=== PATIENT | male | born 1960 | race African-American/Black ===

== ENCOUNTER 2020-08-13 11:53 | Emergency (ER) | payer OTHER, SELFPAY ==
--- NOTE | 2020-08-13 12:20 | ED.SOB ---
HPI - SOB/Dyspnea General Chief Complaint: Dyspnea Stated Complaint: sob Time Seen by Provider: 08/13/20 12:19 Source: patient Mode of arrival: ambulatory Limitations: no limitations History of Present Illness HPI Narrative: 59 y/o male with history of left lung carcinoid nodule s/p ROSA lobectomy and chemoradiation, BPH, gout, HLD, HTN, DM2 presenting with acute on chronic dyspnea on exertion for the last few days. He reports he is chronically SOB but this is slightly worse than usual. He is spitting up blood tinged phlegm and yellow phlegm as well. No fevers, no chest pain. He has been using his PRN inhalers at home with some improvement. He works at a [employer] and has frequent COVID tests - last was 2 weeks ago. Related Data Previous Rx's Medication Instructions Recorded albuterol sulfate 1 inh INHALATION QID PRN #6.7 g 08/13/20 benzocaine-menthol [Cepacol Sore 1 benny PO Q4-5H PRN #16 ea 08/13/20 Throat (ramon-men)] benzonatate [Tessalon Perles] 100 mg PO TID PRN #20 cap 08/13/20 Allergies Allergy/AdvReac Type Severity Reaction Status Date / Time No Known Allergies Allergy Mild NONE Unverified 07/11/20 15:30 Review of Systems Review of Systems: Constitutional: No Fever, No Chills ENT/Mouth: No sore throat, No Rhinorrhea, No Swallowing Difficulty Eyes: No Eye Pain, No Swelling, No Redness Cardiovascular: No Chest Pain, + SOB, No Orthopnea, No Edema Respiratory: + Cough, + Sputum, No Wheezing, + dyspnea Gastrointestinal: No Nausea, No Vomiting, No Diarrhea, No abdominal Pain, No Hematochezia, No Melena Genitourinary: No Dysuria, No Urinary Frequency, No Hematuria Musculoskeletal: No joint pain, No Myalgias Skin: No Skin Lesions, No rash Neuro: No Weakness, No Numbness, No Dizziness, No Headache Psych: No Anxiety/Panic, No Depression Heme/Lymph: No Bruising, No Lymphadenopathy Endocrine: No Polyuria, No Polydipsia PMFSH Past Medical History Attestation statement: The following information was validated with the patient. Medical History Diabetes High cholesterol HTN (hypertension) Prostate enlargement Surgical History (Updated 08/13/20 @ 12:35 by Winnie Hall) History of lobectomy of lung Social History Social History Smoking Status: Never smoker Use of substances other than those prescribed or required for medical reasons: No Advance Directives: No Advance Directives Information Provided: Yes Physical Exam Vital Signs: Vital Signs: Vital Signs Temp Pulse Resp BP Pulse Ox 08/13/20 14:39 91 18 148/101 H 98 08/13/20 12:27 98.0 F 91 16 148/111 H 99 Body Mass Index 27.7 Appearance: Alert. Oriented X3. No acute distress. Eyes: Pupils equal, round and reactive to light. ENT: Pharynx normal. Neck: Normal inspection. Neck supple. CVS: Normal heart rate and rhythm. Pulses normal. Respiratory: No respiratory distress. Breath sounds diminished at bilateral bases. Abdomen: Soft and nontender. +BS x4 Skin: Skin warm and dry. Normal skin color. Normal skin turgor. No rashes. Extremities: No lower extremity edema. Neuro: Oriented X 3. No motor deficit. No sensory deficit. Course Course Course Narrative: 59 y/o with multiple comorbidities presenting with acute on chronic G[place], hemopytsis and yellow phlegm. No hypoxia and no distress on arrival. Concern for possible PE given history and hemopytsis, will check DDIMER. CXR, labs, EKG pending and Duoneb ordered for now. Dispo pending results. Reevaluation(s) Reevaluation #1: DDIMER elevated so CTA was done to r/o PE which did not show any pulmonary emboli. Showed stable loculated left lung pleural effusion from prior imaging and small pleural effusion on the right as well, stable. BNP is elevated 775. Will give dose of IV lasix now. Will get ambulatory O2 sat. Reevaluation #2: No hypoxia or dyspnea with ambulatory pulse oximetry performed by myself. He is stable for d/c with plan to f/u with PCP. May benefit from increase in baseline lasix dosing. Discussed low salt diet with patient and need to follow up with PCP this week. He agrees with plan. MDM - SOB/Dyspnea Differential Diagnosis Differential diagnosis: Likely acute exacerbation of chronic obstructive airways disease, congestive heart failure, pneumonia, asthma with exacerbation, pulmonary embolism, pleural effusion and anemia Medical Records Attestation: I reviewed the patient's medical records. Lab Data Attestation: I reviewed the patient's lab results. Result diagrams: 08/13/20 12:52 08/13/20 12:52 Labs: Lab Results 08/13/20 08/13/20 08/13/20 Range/Units 12:52 12:52 12:52 WBC 9.9 (4.8-10.8) X10*3/uL RBC 4.91 (4.60-5.80) X10*6/uL Hgb 14.8 (14.0-18.0) g/dl Hct 45.6 (42-52) % MCV 92.9 (80-98) fL MCH 30.1 (27.0-33.0) pg MCHC 32.5 (31.0-36.0) g/dl RDW 15.2 (11.0-16.0) % Plt Count 177 (160-400) X10*3/uL MPV 11.1 (9.4-12.4) fL Immature Gran % (Auto) 0.4 (0.0-0.4) % Neut % (Auto) 67.0 (45-73) % Lymph % (Auto) 22.2 (20-40) % Person % (Auto) 9.1 (2-11) % Eos % (Auto) 1.0 (0-4) % Baso % (Auto) 0.3 (0-2) % Lymph # (Auto) 2.2 (1.2-4.9) X10*3/uL Person # (Auto) 0.9 (0.1-1.2) X10*3/uL Eos # (Auto) 0.1 (0.0-0.4) X10*3/uL Baso # (Auto) 0.0 (0.0-0.2) X10*3/uL Abs Immat Gran (auto) 0.04 H (0.00-0.03) X10*3/uL Absolute Neuts (auto) 6.6 (2.0-8.3) X10*3/uL Absolute Nucleated RBC 0.000 (0.0-0.012) X10*3/uL Nucleated RBC % (auto) 0.0 (0.0-0.2) /100WBC D-Dimer 409 NG/ML Sodium 142 (135-145) mmol/L Potassium 4.3 (3.3-5.1) mmol/l Chloride 108 (96-108) mmol/L Carbon Dioxide 24 (22-29) mmol/L Anion Gap 14 (12-20) BUN 14 (9-16) mg/dL Creatinine 0.87 (0.5-1.4) mg/dL Estim Creat Clear Calc 90.5 Estimated GFR > 60 Random Glucose 147 H (60-115) mg/dL Calcium 9.0 (8.4-10.2) mg/dL B-Natriuretic Peptide (<100) pg/mL Urine Color Urine Appearance Urine pH (5.0-8.0) Ur Specific [place] (1.005-1.025) Urine Protein (NEG-TRACE) MG/DL Urine Glucose (UA) (NEG) MG/DL Urine Ketones (NEG) MG/DL Urine Blood (NEG) Urine Nitrite (NEG) Ur Leukocyte Esterase (NEG) Urine RBC (0) /HPF Urine WBC (0-4) /HPF Ur Squamous Epith Cells /LPF Urine Bacteria /LPF Urine Mucus /LPF 08/13/20 08/13/20 Range/Units 12:52 14:05 WBC (4.8-10.8) X10*3/uL RBC (4.60-5.80) X10*6/uL Hgb (14.0-18.0) g/dl Hct (42-52) % MCV (80-98) fL MCH (27.0-33.0) pg MCHC (31.0-36.0) g/dl RDW (11.0-16.0) % Plt Count (160-400) X10*3/uL MPV (9.4-12.4) fL Immature Gran % (Auto) (0.0-0.4) % Neut % (Auto) (45-73) % Lymph % (Auto) (20-40) % Person % (Auto) (2-11) % Eos % (Auto) (0-4) % Baso % (Auto) (0-2) % Lymph # (Auto) (1.2-4.9) X10*3/uL Person # (Auto) (0.1-1.2) X10*3/uL Eos # (Auto) (0.0-0.4) X10*3/uL Baso # (Auto) (0.0-0.2) X10*3/uL Abs Immat Gran (auto) (0.00-0.03) X10*3/uL Absolute Neuts (auto) (2.0-8.3) X10*3/uL Absolute Nucleated RBC (0.0-0.012) X10*3/uL Nucleated RBC % (auto) (0.0-0.2) /100WBC D-Dimer NG/ML Sodium (135-145) mmol/L Potassium (3.3-5.1) mmol/l Chloride (96-108) mmol/L Carbon Dioxide (22-29) mmol/L Anion Gap (12-20) BUN (9-16) mg/dL Creatinine (0.5-1.4) mg/dL Estim Creat Clear Calc Estimated GFR Random Glucose (60-115) mg/dL Calcium (8.4-10.2) mg/dL B-Natriuretic Peptide 775 H (<100) pg/mL Urine Color YELLOW Urine Appearance CLEAR Urine pH 6.0 (5.0-8.0) Ur Specific [place] 1.020 (1.005-1.025) Urine Protein NEG (NEG-TRACE) MG/DL Urine Glucose (UA) NEG (NEG) MG/DL Urine Ketones NEG (NEG) MG/DL Urine Blood TRACE (NEG) Urine Nitrite NEG (NEG) Ur Leukocyte Esterase NEG (NEG) Urine RBC 1-4 (0) /HPF Urine WBC 0-2 (0-4) /HPF Ur Squamous Epith Cells TRACE /LPF Urine Bacteria NONE /LPF Urine Mucus TRACE /LPF ECG Data Attestation: I personally reviewed and interpreted this ECG as follows: ECG interpretation date: 08/13/20 ECG interpretation time: 13:12 Interpretation: normal sinus rhythm, HR 91 bpm, occasional PVC, prolonged QTc 474 Discharge Plan Discharge Clinical Impression: Congestive heart failure Qualifiers: Heart failure type: unspecified Heart failure chronicity: acute on chronic Qualified Code(s): I50.9 - Heart failure, unspecified Patient Disposition: Home, Self-Care Instructions: Heart Failure (ED) Additional Instructions: You were tested for COVID-19 today. We will call you with the results in 2-4 days. If your breathing gets worse, come back to the ER for further evaluation. Follow up with your Primary Care Doctor this week - you may benefit from higher dose of your water pill. Stick to a low salt, heart healthy diet. Prescriptions: New benzonatate [Tessalon Perlclarissa] 100 mg capsule 100 mg PO TID PRN (Reason: cough) Qty: 20 RF: 0 albuterol sulfate 90 mcg/actuation HFA aerosol inhaler 1 inh inhalation QID PRN (Reason: shortness of breath or wheezing) Qty: 6.7 RF: 0 Cepacol Sore Throat (ramon-men) 15-2.3 mg lozenge 1 benny PO Q4-5H PRN (Reason: sore throat) Qty: 16 RF: 0 Stand Alone Forms: Work/School Release
[2020-08-13 12:27] VITALS: BP 148/111; PULSE 91; RESP 16; TEMP 36.7; O2SAT 99; BMI 27.7
--- NOTE | 2020-08-13 12:30 | ECG_ITS ---
Test Reason : SOB Blood Pressure : / mmHG Vent. Rate : 091 BPM Atrial Rate : 091 BPM P-R Int : 130 ms QRS Dur : 090 ms QT Int : 386 ms P-R-T Axes : 057 003 095 degrees QTc Int : 474 ms Sinus rhythm with occasional Premature ventricular complexes Possible Left atrial enlargement Nonspecific ST and T wave abnormality Lateral leads Abnormal ECG When compared with ECG of 01-JUN-2020 10:42, No significant change was found Referred By: Carissa Barreto Electronically Signed By:WILLIS FALLON MD
--- NOTE | 2020-08-13 12:31 | XR_ITS ---
EXAMINATION: XR CHEST CLINICAL INFORMATION: Shortness of breath COMPARISON: Chest radiographs 06/17/2020, 80 06/13/2020, 01/16/2020 TECHNIQUE: Portable upright AP view of the chest was obtained. FINDINGS: The lungs are somewhat expanded with patchy opacity left upper lobe similar to previous study 06/17/2020 likely postsurgical changes as described before. There is minimal loss of left lung volume. The right lung is expanded and clear. The heart size is borderline enlarged. Pulmonary vascularity is normal. There is moderate spondylosis dorsal spine. No lytic process. IMPRESSION: Patchy opacity left upper lobe likely postsurgical changes with mild left lung volume loss, stable. No new findings. Right lung is clear. Borderline cardiomegaly.
[2020-08-13 13:01] LABS: MANUAL DIFF FLAG NO
[2020-08-13] MEDS: Albuterol/Iprat 2.5/0.5MG 3 ML AMPUL.NEB INHALE (13:08)
[2020-08-13 13:09] LABS: Basophils Percent Auto 0.3 % (0-2); Eosinophils Absolute Auto 0.1 X10*3/uL (0.0-0.4); Hematocrit 45.6 % (42-52); Hemoglobin 14.8 g/dl (14.0-18.0); Imm Gran Abs Auto 0.04 X10*3/uL (0.00-0.03); Imm Gran Pct Auto 0.4 % (0.0-0.4); Lymphocytes Absolute Auto 2.2 X10*3/uL (1.2-4.9); Lymphocytes Percent Auto 22.2 % (20-40); Mean Corpuscular HGB Conc 32.5 g/dl (31.0-36.0); Mean Corpuscular Hemoglobin 30.1 pg (27.0-33.0); Mean Corpuscular Volume 92.9 fL (80-98); Mean Platelet Volume 11.1 fL (9.4-12.4); Monocytes Absolute Auto 0.9 X10*3/uL (0.1-1.2); Monocytes Percent Auto 9.1 % (2-11); Neutrophils Absolute Auto 6.6 X10*3/uL (2.0-8.3); Platelet Count 177 X10*3/uL (160-400); Red Blood Count 4.91 X10*6/uL (4.60-5.80); Red Cell Distribution Width 15.2 % (11.0-16.0); White Blood Count 9.9 X10*3/uL (4.8-10.8)
--- NOTE | 2020-08-13 13:10 | PC.NURSE ---
PT ALERT AND ORIENTED, SKIN APPROPRIATE FOR ETHNICITY, PT REPORTS FEELING SOB, COUGH FOR A COUPLE OF DAYS AND STATES WHITE SPUTUM WITH OCCASIONAL BLOOD/RED TING. LS CLEAR BUT HX OF LEFT SIDED LOBE ECTOMY.
[2020-08-13 13:17] LABS: D Dimer 409 NG/ML
[2020-08-13 13:27] LABS: Anion Gap 14 (12-20); Blood Urea Nitrogen 14 mg/dL (9-16); Carbon Dioxide 24 mmol/L (22-29); Chloride 108 mmol/L (96-108); Creatinine Clr Calc Pharmacy 90.5; Estimated Glomerular Filt Rate > 60; Glucose Random 147 mg/dL (60-115); Potassium 4.3 mmol/l (3.3-5.1); Sodium 142 mmol/L (135-145)
--- NOTE | 2020-08-13 13:29 | CT_ITS ---
EXAMINATION: CT ANGIOGRAM OF THE CHEST WITH AND WITHOUT CONTRAST (CT PULMONARY ANGIOGRAM FOR PE) CLINICAL INFORMATION: Reason for Exam SOB, hemoptysis, elevated DDIMER COMPARISON: Previous chest CTA most recent May 2020 and chest x-ray most recent from earlier the same day TECHNIQUE: Prior to contrast administration, noncontrast localization images were obtained. Subsequently, multidetector volumetric imaging was performed from the thoracic inlet to below the diaphragms following the administration of 65 mL Omnipaque 350 intravenous contrast. No contrast reaction reported Sagittal, coronal, and MIP oblique sagittal reformatted images were obtained on the CT workstation, uploaded to PACS, and reviewed. This CT examination was performed using dose optimization techniques as appropriate, variously including the following: *Automated exposure control *Adjustment of mA and/or kV according to patient size (this includes techniques or standardized protocols for targeted exams where dose is matched to indication/reason for exam; i.e. extremities or head) *Use of iterative reconstruction technique Total exam dose-length product 334 mGy-cm FINDINGS: QUALITY OF STUDY/CONTRAST BOLUS: Satisfactory. PULMONARY ARTERIES: No central or segmental pulmonary emboli. THORACIC AORTA: No aneurysm or dissection. LUNG: There are stable postsurgical changes to the left lung following partial left upper lobe lobectomy. There is a small 3 mm peripheral or subpleural left lower lobe pulmonary nodule axial image 35 series 7 that is stable. The lungs are otherwise clear. PLEURA: There is a loculated left pleural effusion at the left lung apex that is stable. There are small bilateral pleural effusions seen at the lung bases adjacent to the lower lobes, right greater than left. These findings are similar to May 2020 exam. MEDIASTINUM: The heart is enlarged. There is mild coronary artery calcification. No septal bowing is seen. There is a small pericardial effusion. There are small mediastinal and hilar lymph nodes that are stable. No enlarged lymph nodes are seen. CHEST WALL/AXILLA: No chest wall mass or enlarged axillary lymph nodes are seen. OSSEOUS STRUCTURES: There are degenerative changes of the spine. UPPER ABDOMEN: There is increased attenuation in the gallbladder questionable for small gallstones. There is some reflux of contrast into the intrahepatic IVC and hepatic veins suggestive of elevated right heart pressures. IMPRESSION: No evidence of pulmonary embolism. Stable postsurgical changes to the left hemithorax. Stable small bilateral pleural effusions. Enlarged heart and elevated right heart pressures. Small gallstones. VTE: negative
[2020-08-13 13:35] LABS: B Type Natriuretic Peptide 775 pg/mL (<100)
[2020-08-13] MEDS: iohexoL 350 MG/ML 100 ML INFUS..BTL IV (13:53)
[2020-08-13 14:14] LABS: Glucose Urine UA NEG (NEG); Leukocyte Esterase Urine NEG (NEG); Nitrite Urine NEG (NEG); Urine Blood TRACE (NEG); Urine Ketones NEG (NEG); Urine Protein NEG (NEG-TRACE)
[2020-08-13 14:16] LABS: Appearance Urine CLEAR; Color Urine YELLOW
[2020-08-13 14:29] LABS: WBC Urine 0-2 /HPF (0-4)
[2020-08-13 14:30] LABS: Mucus Urine TRACE /LPF; Squamous Epithelial Cell Urine TRACE /LPF
[2020-08-13 14:39] VITALS: BP 148/101; PULSE 91; RESP 18; O2SAT 98
[2020-08-13] MEDS: Furosemide 20 MG/2 ML VIAL IVPUSH (14:42)
== END 2020-08-13 15:20 | disposition home or self-care (01) ==
PROVIDERS: Physician Assistant; Emergency Provider Emergency Medicine; PCP Family Medicine
DX: I11.0 Hypertensive heart disease with heart failure (principal); E11.9 Type 2 diabetes mellitus without complications; Z20.828 Contact with and (suspected) exposure to other viral communicable diseases
CPT/HCPCS: 36415; 71045; 71275; 80048; 81001; 83880; 85025; 85379; 87635; 93005; 96374; 99284; J1940

== ENCOUNTER → 2020-08-15 13:25 | Outpatient (REF) | payer OTHER, SELFPAY ==
--- NOTE | 2020-08-15 13:31 | CA_ITS ---
Transthoracic Echocardiogram Patient (Last, First, Middle): Sonny Curiel, Gender: Male Date of : 1960 Age: 59 Procedure Date: 08/15/2020 Procedure Type: Transthoracic Echocardiogram Location: OP Height: 170.18 cm Weight: 80.29 kg BSA: 1.92 m2 Heart Rate: bpm BP: 120 / 83 mmHg Railroad Accountant: CHANDLER Referring MD: Tomer Carolina MD Symptoms: 142.8 Non ischemic cardiomyopathy Study Quality: Good ECG Rhythm: Sinus Conclusions: - The left ventricular systolic function is severely decreased. The visually estimated ejection fraction is between 20-25%. There is severe global hypokinesis. - Evidence suggests grade II (moderate) diastolic dysfunction. - There is mild mitral valve regurgitation. - There is mild tricuspid valve regurgitation. - Moderate pulmonary hypertension is present. Findings Left Ventricle Mildly increased left ventricular cavity size. There is normal left ventricular wall thickness. The left ventricular systolic function is severely decreased. The visually estimated ejection fraction is between 20 25%. There is severe global hypokinesis. E/E prime ratio is >15, consistent with elevated filling pressures. Evidence suggests grade II (moderate) diastolic dysfunction. Right Ventricle Normal right ventricular cavity size and systolic function. Atria The left atrium is normal in size. The right atrium is normal in size. Aortic Valve There is a normal trileaflet aortic valve. There is no aortic valve stenosis. There is no aortic valve regurgitation. Mitral Valve The mitral valve appears normal. There is mild mitral valve regurgitation. There is no mitral valve stenosis. Pulmonic Valve The pulmonic valve was not well visualized. Tricuspid Valve Normal tricuspid valve structure. There is mild tricuspid valve regurgitation. Moderate pulmonary hypertension is present. Great Vessels The aortic annulus, sinuses of valsalva, and asc aorta are normal in size. Venous The inferior vena cava is normal in size and collapses greater than 50% with inspiration. Pericardium/Pleural There is no evidence of pericardial effusion. Prior Study Comparison Changes noted compared to prior study dated: 01/24/2020. LVEF is worse. Measurements M-Mode Liner Measurements Normals - Women/Men LVIDd: 6.86 3.9-5.3/4.2-5.9 cm LVIDd Index: 3.57 1.9-3.2 cm/m2 LVIDs: 5.54 2.0-3.8 cm M-Mode Volumes LV EDV: 244.00 LV ESV: 150.00 2D Linear Measurements IVSd: 0.83 0.6-0.9/0.6-1.0 cm LVIDd: 5.98 3.9-5.3/4.2-5.9 cm LVIDd Index: 3.11 2.4-3.2/2.2-3.1 cm/m2 LVIDs: 5.71 2.0-3.6 cm LVPWd: 1.20 0.7-1.1 cm LA Diam: 3.90 2.7-3.8/3.0-4.0 cm LAIDs Index: 2.03 1.5-2.3 cm/m2 LV Mass: 312.88 67-162/88-224 g LV Mass Index: 162.96 43-95/49-115 g/m2 LVOT Diam: 2.00 3.0+(-)1.3 cm 2D Systolic Function EF 4C: 25.20 >55% EF 2C: 34.90 >55% EF BiP: 25.30 >55% M-Mode Systolic Function FS: 19.20 27-47/25-43% LVEF: 38.50 >55% Mitral Valve MV Pk E: 0.69 MV PK A: 0.36 MV Decel Time: 256.00 E/A: 1.90 E'Lateral: 6.87 E'Medial: 3.48 E/E' Med: 19.80 E/E' Lat: 10.00 PHT: 75.00 MVA PHT: 2.93 Decel Gilchrist: 2.69 Aortic Valve AoV Pk Michael: 0.91 AoV Pk Grad: 3.00 LVOT LVOT Pk Michael: 0.51 LVOT Mn Michael: 0.29 LVOT VTI: 0.07 LVOT Pk Grad: 1.00 LVOT Mn Grad: 0.00 LVOT Diam: 2.00 LVOT Area: 3.14 Diastolic Function MV Pk E: 0.69 MV Pk A: 0.36 E/A: 1.90 E'Medial: 3.48 E/E' Med: 19.80 E' Laterial: 6.87 E/E' Lat: 10.00 Tricuspid Valve TR Pk Michael: 330.00 TR Pk Grad: 44.00 RA Press: 3.00 RVSP: 47.00 Great Vessels Aorta Ao Asc: 3.10 2.1-3.4 cm Updated in Other Vendor System with Status of Final Tomer Carolina MD electronically signed on 08/18/2020 10:56:57 AM with status of Final
== END ==
LOC: HO.CARD 13:25
PROVIDERS: PCP Family Medicine; Visit Provider Internal Medicine
DX: I42.8 Other cardiomyopathies (principal)
CPT/HCPCS: 93306

== ENCOUNTER → 2020-08-20 09:48 | Outpatient (BNVA) | payer OTHER, SELFPAY | PROVIDERS: PCP Family Medicine; Referring Provider Family Medicine; Visit Provider Hospitalist | DX: Z76.89 Persons encountering health services in other specified circumstances (principal) ==

== ENCOUNTER → 2020-08-26 10:39 | Outpatient (BNVA) | payer OTHER, SELFPAY | PROVIDERS: PCP Family Medicine; Referring Provider Family Medicine; Visit Provider Internal Medicine | DX: I42.8 Other cardiomyopathies (principal); I49.3 Ventricular premature depolarization; I10 Essential (primary) hypertension; E11.8 Type 2 diabetes mellitus with unspecified complications; E78.5 Hyperlipidemia, unspecified; Z79.899 Other long term (current) drug therapy | CPT/HCPCS: 93005 ==

== ENCOUNTER → 2020-09-16 09:33 | Outpatient (REF) | payer OTHER, SELFPAY | LOC: HO.SL 09:33 | PROVIDERS: PCP Family Medicine; Visit Provider Hospitalist | DX: G47.33 Obstructive sleep apnea (adult) (pediatric) (principal) | CPT/HCPCS: 95806 ==

== ENCOUNTER → 2020-11-01 12:43 | Outpatient (REF) | payer OTHER, SELFPAY ==
--- NOTE | 2020-11-01 13:00 | CA_ITS ---
Transthoracic Echocardiogram Patient (Last, First, Middle): Sonny Curiel, Gender: Male Date of : 1960 Age: 59 Procedure Date: 11/01/2020 Procedure Type: Transthoracic Echocardiogram Location: OP Height: 170.18 cm Weight: 85.28 kg BSA: 1.97 m2 Heart Rate: bpm BP: 124 / 70 mmHg Hydrator: SONYA Referring MD: Tomer Carolina MD Symptoms: I42.8 Study Quality: Good Conclusions: - Limited echo - LVEF 25-30 %. Moderate to severely reduced LVEF/ - Right Ventricle - Normal right ventricular cavity size. There is mildly decreased right ventricular systolic function. Findings Left Ventricle Normal left ventricular cavity size. The left ventricular systolic function is moderate to severely decreased. The visually estimated ejection fraction is between 25-30%. Abnormal diastolic function is noted. Spectral Doppler is indicative of an impaired relaxation filling pattern. E/E prime ratio is between 8 and 15 consistent with indeterminate filling pressures. Right Ventricle Normal right ventricular cavity size. There is mildly decreased right ventricular systolic function. Pericardium/Pleural There is no evidence of pericardial effusion. Prior Study Comparison Changes noted compared to prior study dated: 08/15/2020. EF slightly improved to 25 to 30% Measurements 2D Linear Measurements IVSd: 1.03 0.6-0.9/0.6-1.0 cm LVIDd: 5.64 3.9-5.3/4.2-5.9 cm LVIDd Index: 2.86 2.4-3.2/2.2-3.1 cm/m2 LVIDs: 4.90 2.0-3.6 cm LVPWd: 1.00 0.7-1.1 cm LV Mass: 282.68 67-162/88-224 g LV Mass Index: 143.49 43-95/49-115 g/m2 2D Systolic Function EF 4C: 30.30 >55% EF 2C: 43.80 >55% Mitral Valve MV Pk E: 0.37 MV PK A: 0.64 MV Decel Time: 261.00 E/A: 0.60 E'Lateral: 3.81 E'Medial: 3.15 E/E' Med: 11.70 E/E' Lat: 9.60 PHT: 77.00 MVA PHT: 2.86 Decel [place]: 1.40 Diastolic Function MV Pk E: 0.37 MV Pk A: 0.64 E/A: 0.60 E'Medial: 3.15 E/E' Med: 11.70 E' Laterial: 3.81 E/E' Lat: 9.60 Updated in Other Vendor System with Status of Final Flakito Acosta MD electronically signed on 11/04/2020 2:41:04 PM with status of Final
== END ==
LOC: HO.CARD 12:43
PROVIDERS: PCP Family Medicine; Visit Provider Internal Medicine
DX: I42.8 Other cardiomyopathies (principal)
CPT/HCPCS: 93308

== ENCOUNTER → 2020-11-04 08:31 | Outpatient (BNVA) | payer OTHER, SELFPAY | PROVIDERS: PCP Family Medicine; Visit Provider Hospitalist | DX: Z76.89 Persons encountering health services in other specified circumstances (principal) ==

== ENCOUNTER → 2020-11-27 09:37 | Outpatient (BNVA) | payer OTHER, SELFPAY | PROVIDERS: PCP Family Medicine; Visit Provider Internal Medicine ==

== ENCOUNTER → 2020-12-10 08:41 | Outpatient (REF) | payer MEDICAID, SELFPAY ==
--- NOTE | 2020-12-10 09:49 | ECG_ITS ---
Hook-up date: 2020-12-10 09:51:00 Duration: 24:39:00 Test Indications: VENTRIC. SHAN. DEPOLARIZATION Medications: 149459 QRS complexes 4524 Ventricular ectopics which represent 4 % of total QRS comp. * Supraventricular ectopics which represent % of total QRS comp. * Paced QRS complexs which represent % of total QRS comp. VENTRICULAR ECTOPY 4024 Isolated 18 Bigeminal Cycles 225 Couplets 10 Runs 50 Beats in Runs 19 Beats LONGEST at 133 BPM at 21:12:12 2020-12-10 3 Beats FASTEST at 151 BPM at 11:47:13 2020-12-10 SUPRAVENTRICULAR ECTOPY * Isolated * Couplets * Runs * Beats in Runs * Beats LONGEST at * BPM at :: -- * Beats FASTEST at * BPM at :: -- HEART RATES 48 MIN at 06:16:01 2020-12-11 73 AVG 99 MAX at 10:05:50 2020-12-10 LONGEST RR 1.0800 secs at 02:27:24 2020-12-11 S-T LEVELS Channel 1 - 128 mm at 09:51:00 2020-12-10 - 128 mm at 09:51:00 2020-12-10 Channel 2 - 128 mm at 09:51:00 2020-12-10 - 128 mm at 09:51:00 2020-12-10 Channel 3 - 128 mm at 02:91:01 -- - 128 mm at 02:91:01 Underlying rhythm is sinus; Average ventricular rate 73/min; range 48-99/min; Frequent premature ventricular contractions (4% of total, 4524 over 24 Hrs); Mostly isolated beats, some couplets, bigeminy, few runs; longest 19 beats at 133/min, unifocal; No sustained arrhythmias; Patient diary not available for review. Referred By: Imtiaz Brown Overread By: IMTIAZ BROWN
== END ==
LOC: HO.CARD 08:41
PROVIDERS: PCP Family Medicine; Visit Provider Internal Medicine
DX: I49.3 Ventricular premature depolarization (principal)
CPT/HCPCS: 93226

== ENCOUNTER → 2020-12-24 12:38 | Outpatient (BNVA) | payer MEDICAID, SELFPAY | PROVIDERS: PCP Family Medicine; Visit Provider Internal Medicine | DX: I42.8 Other cardiomyopathies (principal); I49.3 Ventricular premature depolarization; I10 Essential (primary) hypertension; Z71.89 Other specified counseling | CPT/HCPCS: 99212 ==

== ENCOUNTER 2020-12-26 09:57 | Outpatient (REF) | payer MEDICAID, SELFPAY ==
[2020-12-26 11:13] LABS: B Type Natriuretic Peptide 54 pg/mL (<100)
[2020-12-26 11:32] LABS: Anion Gap 15 (12-20); Blood Urea Nitrogen 27 mg/dL (9-16); Calcium 9.8 mg/dL (8.4-10.2); Carbon Dioxide 24 mmol/L (22-29); Chloride 103 mmol/L (96-108); Estimated Glomerular Filt Rate > 60; Glucose Random 333 mg/dL (60-115); Potassium 4.6 mmol/L (3.3-5.1); Sodium 137 mmol/L (135-145)
== END 2020-12-26 09:58 | disposition home or self-care (01) ==
LOC: HO.LAB 09:57
PROVIDERS: PCP Family Medicine; Visit Provider Internal Medicine
DX: I42.8 Other cardiomyopathies (principal)
CPT/HCPCS: 36415; 80048; 83880

== ENCOUNTER 2021-01-18 11:31 | Emergency (ER) | payer MEDICAID, SELFPAY ==
--- NOTE | ~2021-01-18 | XR_ITS ---
EXAMINATION: XR CHEST CLINICAL INFORMATION: Chest pain and weakness. COMPARISON: Chest 08/13/2020 TECHNIQUE: 2 views of the chest were obtained. FINDINGS: The lungs are well-expanded with postsurgical changes left upper lobe. It is stable. Rest of lungs are somewhat expanded and clear. The heart size and pulmonary vascularity is normal. There is mild spondylosis mid and lower dorsal spine. No lytic process. XR/XR chest 2V IMPRESSION: Postsurgical changes left upper lobe. No acute process.
[2021-01-18 11:36] VITALS: BP 109/72; PULSE 89; RESP 22; TEMP 36.3; O2SAT 99; BMI 28.5
--- NOTE | 2021-01-18 12:36 | ED_ITS ---
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 He tells me he spoke to his PCP 3 days ago and his metformin dose was increased as well as his glipizide. Denies weight gain. Last weight was 175. Tells me he has been compliant with his medications. He takes 20 mg of Lasix every day and 25 mg of Aldactone. No leg swelling or pain. MD Complaint: generalized weakness Related Data Home Medications Medication Instructions Recorded Confirmed atorvastatin 80 mg tablet 80 mg PO DAILY 08/20/20 12/24/20 furosemide 20 mg tablet 20 mg PO DAILY 08/20/20 12/24/20 metformin 500 mg tablet 500 mg PO DAILY 08/20/20 12/24/20 omega-3 fatty acids 1,000 mg 1,000 mg PO BID 08/20/20 12/24/20 capsule tamsulosin 0.4 mg capsule 0.4 mg PO DAILY 08/20/20 12/24/20 ergocalciferol (vitamin D2) 1,250 1,250 mcg PO QWEEK 11/04/20 12/24/20 mcg (50,000 unit) capsule ipratropium bromide 21 mcg (0.03 spray INTRANASAL 11/04/20 12/24/20 %) nasal spray albuterol sulfate 1 inh INHALATION QID PRN 11/22/20 12/24/20 aspirin 81 mg PO DAILY 11/22/20 12/24/20 hydroxyzine pamoate 25 mg capsule 25 mg PO .prn cap 11/27/20 12/24/20 glipizide 10 mg tablet 10 mg PO DAILY tab 12/24/20 12/24/20 Previous Rx's Medication Instructions Recorded carvedilol 6.25 mg tablet 12.5 mg PO BID #180 tab 08/26/20 spironolactone 25 mg tablet 25 mg PO DAILY #30 tab 11/27/20 sacubitril 24 mg-valsartan 26 mg 1 tab PO BID #60 tab 12/12/20 tablet Allergies Allergy/AdvReac Type Severity Reaction Status Date / Time No Known Allergies Allergy Mild NONE Verified 01/18/21 11:42 Review of Systems Review of Systems: Yes all other systems are reviewed and are negative Constitutional: Constitutional: Reports no additional constitutional complaints, Denies body ache(s), Denies chills, Denies fever(s), Denies headache(s) and Reports weakness Eyes: Eyes: Reports no additional eye complaints and Denies change in vision ENT: Reports system reviewed and no additional complaints, except as document ed, Reports dizziness, Denies headache(s), Denies nasal congestion, Denies nasal discharge and Reports neck pain Cardiovascular: Cardiovascular: Reports no additional cardiovascular complaints, Reports chest pain, Denies leg edema and Reports dyspnea Respiratory: Respiratory: Reports no additional respiratory complaints, Denies cough and Reports dyspnea Gastrointestinal: Gastrointestinal: Reports no additional gastrointestinal complaints, Denies abdominal pain, Denies diarrhea, Denies nausea and Denies vomiting Genitourinary: Genitourinary: Denies urinary incontinence Musculoskeletal: Musculoskeletal: Reports no additional musculoskeletal complaints, Denies back pain, Denies arthralgias, Denies joint swelling, Reports neck pain, Denies numbness and Denies tingling Integumentary/Breasts: Skin/Breast: Reports system reviewed and no additional complaints, except as docu and Denies rash Neurologic: Reports system reviewed and no additional complaints, except as do cumented, Denies Abnormal speech present, Reports dizziness, Denies headache(s), Denies numbness, Denies tingling and Reports weakness PMFSH Past Medical History Attestation statement: The following information was validated with the patient. Source: old records reviewed and nursing notes reviewed Medical History Carcinoid tumor Cardiomyopathy COPD (chronic obstructive pulmonary disease) Diabetes Essential hypertension High cholesterol HTN (hypertension) NICM (nonischemic cardiomyopathy) MARVA (obstructive sleep apnea) Other and unspecified hyperlipidemia Prostate enlargement PVC (premature ventricular contraction) Type 2 diabetes mellitus with unspecified complications Surgical History History of lobectomy of lung Family History Family History Son No problems noted. Social History Social History Household Members: Spouse Smoking Status: Never smoker Second Hand Smoke Exposure: Yes (10 + yrs) Use of substances other than those prescribed or required for medical reasons: No Advance Directives: No Advance Directives Information Provided: Yes Physical Exam Vital Signs: Vital Signs: Last Vital Signs Temp 98.0 F 01/18/21 14:54 Pulse 78 01/18/21 16:24 Resp 16 01/18/21 16:24 BP 115/74 01/18/21 16:24 Pulse Ox 98 01/18/21 16:24 Body Mass Index 28.5 Const: General: cooperative, healthy appearing, comfortable and no acute distress Orientation/consciousness: patient oriented x3 Limitations: no limitations HENMT: Head: Yes normal to inspection Ears: hearing grossly normal bilaterally General nose exam: Normal external nose present Face and sinus: Yes normal facial exam Mouth: Normal oral and palatal mucosa present Throat: Yes posterior oropharynx normal Eyes: General: appearance normal, both eyes and all related structures Pupils: Equal, round and reactive pupils present Neck: Neck: Yes normal visual inspection Chest: Chest palpation & inspection: normal inspection of the chest Resp: Effort & Inspection: normal respiratory effort Auscultation: clear to auscultation bilaterally Cardio: Rate: regular rate Rhythm: regular rhythm Peripheral pulses: Peripheral pulses 2+ throughout GI: Inspection: Yes normal to inspection Palpation (GI): Soft to palpation and nontender Auscultation: normal bowel sounds Back/Spine/Pelvis: Thoracic/Lumbar Spine: thoracic and lumbar spine normal to inspection Skin: General skin exam: no rashes or lesions noted Neuro: General: patient oriented x3, no focal motor deficits and normal sensation to monofilament Cranial nerves: Yes Equal, round and reactive pupils present Cognition (Neuro): normal cognition Speech: No Abnormal speech present Gait exam (Neuro): Normal gait present Motor exam (neuro): 5/5 motor strength present throughout Extrem: General: Yes normal to inspection, Yes no pedal edema and Yes no calf tenderness Course Course Course Narrative: 60-year-old male here with multiple complaints of intermittent chest tightness, dyspnea on exertion, productive cough, dizziness with position changes, generalized weakness, neck discomfort x3 days. On exam he is well appearing. Hemodynamically stable. Clear lung sounds. No evidence of fluid overload. Will check chest x-ray, EKG, labs, orthostatic vital signs. 1515-orthostatics mildly elevated. Patient can orally hydrate. Chest x-ray unremarkable. EKG shows no ischemic changes. Labs show mildly elevated troponin, will plan for repeat 3 hour troponin. 1900-repeat troponin no delta. Patient tells me he feels like his symptoms have started after his diabetes medications and doses were increased 3 days ago. He tells me his symptoms are worse in the morning after taking his morning dose of the medications. His symptoms seemed to improve by the end of the day. We discussed following up with his primary care doctor./ may need adjustment of his medications. Reviewed worrisome signs and symptoms when to return to the emergency department. Comfortable discharge home. MDM - Weakness MDM Narrative Medical decision making narrative: Orthostatic hypotension, hypoglycemia, anemia, CHF exacerbation, pneumonia, , PE, ACS May be transient hypoglycemia after taking morning medications and not now. Less likely anemia with normal labs. Less likely CHF exacerbation with no clinical signs or symptoms of CHF and a negative BNP. Less likely pneumonia with negative chest x-ray and no cough or fever. Less likely PE with no hypoxia, tachycardia, clinical signs and symptoms of a DVT. Less likely ACS with 2 troponins with no change, EKG with, no ischemic changes and atypical chest pain Medical Records Attestation: I reviewed the patient's medical records. Lab Data Attestation: I reviewed the patient's lab results. Result diagrams: 01/18/21 13:19 01/18/21 13:19 Labs: Lab Results 01/18/21 01/18/21 01/18/21 Range/Units 13:19 13:19 13:19 WBC 9.0 (4.8-10.8) X10*3/uL RBC 5.05 (4.60-5.80) X10*6/uL Hgb 15.5 (14.0-18.0) g/dl Hct 47.6 (42-52) % MCV 94.3 (80-98) fL MCH 30.7 (27.0-33.0) pg MCHC 32.6 (31.0-36.0) g/dl RDW 13.9 (11.0-16.0) % Plt Count 175 (160-400) X10*3/uL MPV 10.0 (9.4-12.4) fL Immature Gran % (Auto) 0.6 H (0.0-0.4) % Neut % (Auto) 62.4 (45-73) % Lymph % (Auto) 25.5 (20-40) % [place] % (Auto) 9.8 (2-11) % Eos % (Auto) 1.3 (0-4) % Baso % (Auto) 0.4 (0-2) % Lymph # (Auto) 2.3 (1.2-4.9) X10*3/uL [place] # (Auto) 0.9 (0.1-1.2) X10*3/uL Eos # (Auto) 0.1 (0.0-0.4) X10*3/uL Baso # (Auto) 0.0 (0.0-0.2) X10*3/uL Abs Immat Gran (auto) 0.05 H (0.00-0.03) X10*3/uL Absolute Neuts (auto) 5.6 (2.0-8.3) X10*3/uL Absolute Nucleated RBC 0.000 (0.0-0.012) X10*3/uL Nucleated RBC % (auto) 0.0 (0.0-0.2) /100WBC PT 14.4 H (10.8-13.0) SEC INR 1.2 H (0.9-1.1) Sodium 138 (135-145) mmol/L Potassium 4.0 (3.3-5.1) mmol/L Chloride 104 (96-108) mmol/L Carbon Dioxide 25 (22-29) mmol/L Anion Gap 13 (12-20) BUN 20 H (9-16) mg/dL Creatinine 1.38 (0.5-1.4) mg/dL Estim Creat Clear Calc 57.0 Estimated GFR 52 Random Glucose 179 H D (60-115) mg/dL Calcium 9.2 D (8.4-10.2) mg/dL Magnesium 1.6 (1.6-2.6) mg/dL Total Bilirubin 1.0 (0.0-1.0) mg/dL Direct Bilirubin 0.4 (0.0-0.5) mg/dL AST 22 (5-37) U/L ALT 20 (0-40) U/L Alkaline Phosphatase 63 (39-117) U/L Troponin I High Sens (<3.5-35.0) ng/L B-Natriuretic Peptide (<100) pg/mL Total Protein 7.0 (6.5-8.0) g/dL Albumin 4.1 (3.5-5.0) g/dL 01/18/21 01/18/21 01/18/21 Range/Units 13:20 13:20 16:53 WBC (4.8-10.8) X10*3/uL RBC (4.60-5.80) X10*6/uL Hgb (14.0-18.0) g/dl Hct (42-52) % MCV (80-98) fL MCH (27.0-33.0) pg MCHC (31.0-36.0) g/dl RDW (11.0-16.0) % Plt Count (160-400) X10*3/uL MPV (9.4-12.4) fL Immature Gran % (Auto) (0.0-0.4) % Neut % (Auto) (45-73) % Lymph % (Auto) (20-40) % [place] % (Auto) (2-11) % Eos % (Auto) (0-4) % Baso % (Auto) (0-2) % Lymph # (Auto) (1.2-4.9) X10*3/uL [place] # (Auto) (0.1-1.2) X10*3/uL Eos # (Auto) (0.0-0.4) X10*3/uL Baso # (Auto) (0.0-0.2) X10*3/uL Abs Immat Gran (auto) (0.00-0.03) X10*3/uL Absolute Neuts (auto) (2.0-8.3) X10*3/uL Absolute Nucleated RBC (0.0-0.012) X10*3/uL Nucleated RBC % (auto) (0.0-0.2) /100WBC PT (10.8-13.0) SEC INR (0.9-1.1) Sodium (135-145) mmol/L Potassium (3.3-5.1) mmol/L Chloride (96-108) mmol/L Carbon Dioxide (22-29) mmol/L Anion Gap (12-20) BUN (9-16) mg/dL Creatinine (0.5-1.4) mg/dL Estim Creat Clear Calc Estimated GFR Random Glucose (60-115) mg/dL Calcium (8.4-10.2) mg/dL Magnesium (1.6-2.6) mg/dL Total Bilirubin (0.0-1.0) mg/dL Direct Bilirubin (0.0-0.5) mg/dL AST (5-37) U/L ALT (0-40) U/L Alkaline Phosphatase (39-117) U/L Troponin I High Sens 12.6 12.9 (<3.5-35.0) ng/L B-Natriuretic Peptide 21 (<100) pg/mL Total Protein (6.5-8.0) g/dL Albumin (3.5-5.0) g/dL Imaging Data Chest x-ray: Attestation: I personally reviewed and interpreted this imaging study as follows: Radiologist's impression: EXAMINATION: XR CHEST CLINICAL INFORMATION: Chest pain and weakness. COMPARISON: Chest 08/13/2020 TECHNIQUE: 2 views of the chest were obtained. FINDINGS: The lungs are well-expanded with postsurgical changes left upper lobe. It is stable. Rest of lungs are somewhat expanded and clear. The heart size and pulmonary vascularity is normal. There is mild spondylosis mid and lower dorsal spine. No lytic process. XR/XR chest 2V IMPRESSION: Postsurgical changes left upper lobe. No acute process. ECG Data Attestation: I personally reviewed and interpreted this ECG as follows: ECG interpretation date: 01/18/21 ECG interpretation time: 12:58 Interpretation: Sinus rhythm with occasional PVCs, LVH, normal P rate of 73, normal CA, normal QRS, normal QT Discharge Plan Discharge Clinical Impression: Atypical chest pain, Dizziness Patient Disposition: Home, Self-Care Instructions: Chest Pain (ED), Dizziness (ED) Additional Instructions: Talk to your doctor about your morning medications is as these may be too strong for you. It may be causing your blood pressure or blood sugar the lower. Do not change her medications before talking to her. Change positions slowly. Increase fluids this weekend at home Prescriptions: No Action Entresto 24-26 mg tablet 1 tab PO BID Qty: 60 RF: 5 albuterol sulfate 90 mcg/actuation HFA aerosol inhaler 1 inh inhalation QID PRN (Reason: Shortness Of Breath Or Wheezing) RF: 0 aspirin 81 mg Tablet 81 mg PO DAILY RF: 0 omega-3 fatty acids 1,000 mg capsule 1,000 mg PO BID RF: 0 furosemide 20 mg tablet 20 mg PO DAILY RF: 0 tamsulosin 0.4 mg capsule 0.4 mg PO DAILY RF: 0 atorvastatin [Lipitor] 80 mg tablet 80 mg PO DAILY RF: 0 metformin 500 mg tablet 500 mg PO DAILY RF: 0 glipizide 10 mg tablet 10 mg PO DAILY RF: 0 carvedilol 6.25 mg tablet 12.5 mg PO BID Qty: 180 RF: 4 ipratropium bromide 0.03 % spray,non-aerosol intranasal RF: 0 ergocalciferol (vitamin D2) 1,250 mcg (50,000 unit) capsule 1,250 mcg PO QWEEK RF: 0 hydroxyzine pamoate 25 mg capsule 25 mg PO .prn RF: 0 spironolactone 25 mg tablet 25 mg PO DAILY Qty: 30 RF: 5 Referrals: Farrah Jackson DO [Primary Care Provider] - 2 days Interventions: ED Discharge Assessment Last Done: 01/18/21 18:01 Discharge Date/Time: 01/18/21 18:01
--- NOTE | 2021-01-18 12:41 | ECG_ITS ---
Test Reason : DIFF BREATHING Blood Pressure : / mmHG Vent. Rate : 073 BPM Atrial Rate : 073 BPM P-R Int : 136 ms QRS Dur : 090 ms QT Int : 400 ms P-R-T Axes : 060 -11 137 degrees QTc Int : 440 ms Sinus rhythm with occasional Premature ventricular complexes Left ventricular hypertrophy with repolarization abnormality Abnormal ECG When compared with ECG of 13-AUG-2020 13:02, No significant change was found Referred By: Verito Miller Electronically Signed By:IMTIAZ BROWN
[2021-01-18 13:03] VITALS: BP 111/83; PULSE 65
[2021-01-18 13:10] VITALS: BP 121/81; BP 128/88; PULSE 79; PULSE 82
[2021-01-18 13:23] VITALS: BP 121/81; PULSE 79; RESP 16
[2021-01-18 13:24] LABS: MANUAL DIFF FLAG NO
[2021-01-18 13:25] LABS: Basophils Percent Auto 0.4 % (0-2); Eosinophils Absolute Auto 0.1 X10*3/uL (0.0-0.4); Eosinophils Percent Auto 1.3 % (0-4); Hematocrit 47.6 % (42-52); Hemoglobin 15.5 g/dl (14.0-18.0); Imm Gran Abs Auto 0.05 X10*3/uL (0.00-0.03); Imm Gran Pct Auto 0.6 % (0.0-0.4); Lymphocytes Absolute Auto 2.3 X10*3/uL (1.2-4.9); Lymphocytes Percent Auto 25.5 % (20-40); Mean Corpuscular HGB Conc 32.6 g/dl (31.0-36.0); Mean Corpuscular Hemoglobin 30.7 pg (27.0-33.0); Mean Corpuscular Volume 94.3 fL (80-98); Monocytes Absolute Auto 0.9 X10*3/uL (0.1-1.2); Monocytes Percent Auto 9.8 % (2-11); Neutrophils Absolute Auto 5.6 X10*3/uL (2.0-8.3); Neutrophils Percent Auto 62.4 % (45-73); Platelet Count 175 X10*3/uL (160-400); Red Blood Count 5.05 X10*6/uL (4.60-5.80); Red Cell Distribution Width 13.9 % (11.0-16.0)
[2021-01-18 13:36] LABS: INTERNATIONAL NORM RATIO 1.2 (0.9-1.1); Prothrombin Time 14.4 SEC (10.8-13.0)
[2021-01-18 13:47] LABS: Alanine Aminotransferase 20 U/L (0-40); Albumin Level 4.1 g/dL (3.5-5.0); Alkaline Phosphatase 63 U/L (39-117); Anion Gap 13 (12-20); Aspartate Amino Transferase 22 U/L (5-37); Bilirubin Direct 0.4 mg/dL (0.0-0.5); Blood Urea Nitrogen 20 mg/dL (9-16); Calcium 9.2 mg/dL (8.4-10.2); Carbon Dioxide 25 mmol/L (22-29); Chloride 104 mmol/L (96-108); Estimated Glomerular Filt Rate 52; Glucose Random 179 mg/dL (60-115); Magnesium 1.6 mg/dL (1.6-2.6); Sodium 138 mmol/L (135-145)
[2021-01-18 13:54] LABS: B Type Natriuretic Peptide 21 pg/mL (<100)
[2021-01-18 14:40] LABS: Troponin-I High Sensitivity 12.6 ng/L (<3.5-35.0)
[2021-01-18 14:54] VITALS: BP 115/80; PULSE 73; RESP 20; TEMP 36.7; O2SAT 97
--- NOTE | 2021-01-18 15:30 | PC.NURSE ---
awaiting repeat troponin, no acute changes
[2021-01-18 16:24] VITALS: BP 115/74; PULSE 78; RESP 16; O2SAT 98
[2021-01-18 17:33] LABS: Troponin-I High Sensitivity 12.9 ng/L (<3.5-35.0)
== END 2021-01-18 18:01 | disposition home or self-care (01) ==
PROVIDERS: Nurse Practitioner Family; Emergency Provider Emergency Medicine; PCP Family Medicine
DX: R07.89 Other chest pain (principal); R42 Dizziness and giddiness; I10 Essential (primary) hypertension; E11.9 Type 2 diabetes mellitus without complications; R53.1 Weakness; Z79.899 Other long term (current) drug therapy
CPT/HCPCS: 36415; 71046; 80048; 80076; 83735; 83880; 84484; 85025; 85610; 93005; 99283; 99284

== ENCOUNTER → 2021-01-27 09:37 | Outpatient (BNVA) | payer MEDICAID, SELFPAY | PROVIDERS: PCP Family Medicine; Visit Provider Hospitalist | DX: J44.9 Chronic obstructive pulmonary disease, unspecified (principal); G47.33 Obstructive sleep apnea (adult) (pediatric); D3A.00 Benign carcinoid tumor of unspecified site | CPT/HCPCS: 99212 ==

== ENCOUNTER 2021-02-20 12:10 | Emergency (ER) | payer MEDICAID, SELFPAY ==
--- NOTE | ~2021-02-20 | XR_ITS ---
EXAMINATION: XR CHEST CLINICAL INFORMATION: Chest pain COMPARISON: Previous chest x-ray most recent 01/18/2021 TECHNIQUE: 1 view of the chest was obtained. FINDINGS: The cardiac silhouette is slightly enlarged but stable. There are postsurgical changes to the left upper lung. The lungs are otherwise clear. There is no pleural effusion or pneumothorax. There are degenerative changes of the spine. XR/XR chest 1V IMPRESSION: No evidence for acute disease in the chest.
[2021-02-20 12:29] VITALS: BP 130/85; PULSE 84; O2SAT 98
[2021-02-20 12:30] VITALS: BP 131/80; PULSE 83; RESP 18; TEMP 36.8; O2SAT 99; BMI 27.8
--- NOTE | 2021-02-20 12:38 | ECG_ITS ---
Test Reason : CHEST PAIN Blood Pressure : / mmHG Vent. Rate : 081 BPM Atrial Rate : 081 BPM P-R Int : 136 ms QRS Dur : 092 ms QT Int : 388 ms P-R-T Axes : 048 -14 106 degrees QTc Int : 450 ms Normal sinus rhythm Moderate voltage criteria for LVH, may be normal variant T wave abnormality, consider lateral ischemia Abnormal ECG When compared with ECG of 18-JAN-2021 12:58, Premature ventricular complexes are no longer Present Referred By: Generic ED Physician Electronically Signed By:EILEEN ORLANDO MD
--- NOTE | 2021-02-20 12:45 | PC.NURSE ---
iv inserted, labs drawn, color television console monitor applied- nsr, vss
[2021-02-20 12:52] LABS: MANUAL DIFF FLAG NO
[2021-02-20 12:53] LABS: Basophils Percent Auto 0.4 % (0-2); Eosinophils Absolute Auto 0.1 X10*3/uL (0.0-0.4); Eosinophils Percent Auto 1.1 % (0-4); Hematocrit 43.2 % (42-52); Hemoglobin 14.3 g/dl (14.0-18.0); Imm Gran Abs Auto 0.04 X10*3/uL (0.00-0.03); Imm Gran Pct Auto 0.4 % (0.0-0.4); Lymphocytes Absolute Auto 2.4 X10*3/uL (1.2-4.9); Lymphocytes Percent Auto 23.9 % (20-40); Mean Corpuscular HGB Conc 33.1 g/dl (31.0-36.0); Mean Corpuscular Volume 93.5 fL (80-98); Mean Platelet Volume 10.5 fL (9.4-12.4); Monocytes Absolute Auto 0.9 X10*3/uL (0.1-1.2); Monocytes Percent Auto 9.4 % (2-11); Neutrophils Absolute Auto 6.4 X10*3/uL (2.0-8.3); Neutrophils Percent Auto 64.8 % (45-73); Platelet Count 163 X10*3/uL (160-400); Red Blood Count 4.62 X10*6/uL (4.60-5.80); Red Cell Distribution Width 14.1 % (11.0-16.0); White Blood Count 9.8 X10*3/uL (4.8-10.8)
[2021-02-20 13:14] LABS: Anion Gap 17 (12-20); Blood Urea Nitrogen 14 mg/dL (9-16); Calcium 9.2 mg/dL (8.4-10.2); Carbon Dioxide 20 mmol/L (22-29); Chloride 106 mmol/L (96-108); Creatinine Clr Calc Pharmacy 87.5; Estimated Glomerular Filt Rate > 60; Glucose Random 221 mg/dL (60-115); Sodium 139 mmol/L (135-145)
[2021-02-20 13:36] LABS: INTERNATIONAL NORM RATIO 1.2 (0.9-1.1); Prothrombin Time 14.6 SEC (10.8-13.0)
[2021-02-20 13:38] LABS: Partial Thromboplastin Time 35.3 SEC (24.1-38.0)
[2021-02-20 13:44] LABS: B Type Natriuretic Peptide 104 pg/mL (<100)
[2021-02-20 13:48] LABS: Lactate Dehydrogenase 145 U/L (118-273)
[2021-02-20 13:50] LABS: D Dimer < 200 NG/ML
--- NOTE | 2021-02-20 13:50 | PC.NURSE ---
covid swab obtained, ekg performed
--- NOTE | 2021-02-20 14:00 | ED_ITS ---
HPI - Chest Pain General Chief Complaint: Chest Pain <BEULAH Rodgers Last Filed: 02/20/21 19:28> Stated Complaint: chest pain <BEULAH Rodgers Last Filed: 02/20/21 19:28> Time Seen by Provider: 02/20/21 13:17 <BEULAH Rodgers Last Filed: 02/20/21 19:28> Source: patient <BEULAH Rodgers Last Filed: 02/20/21 19:28> Mode of arrival: ambulatory <BEULAH Rodgers Last Filed: 02/20/21 19:28> Limitations: no limitations <BEULAH Rodgers Last Filed: 02/20/21 19:28> History of Present Illness HPI narrative: Patient presents to the ED for 3 days of left-sided chest pain with shortness of breath. Patient cannot explain pain. Patient states it is not pressure-like or sharp like. The patient does admit to chest pain being worse on range of motion of left upper extremity and moving torso. 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 Patient denies any swelling of lower extremity, fever, chills, wheezing, recent long travel, recent surgery, headache, or passing out. Patient presently states no chest pain or shortness of breath in the ED. <BEULAH Rodgers Last Filed: 02/20/21 19:28> MD complaint: chest discomfort <BEULAH Rodgers Last Filed: 02/20/21 19:28> Related Data Home Medications: Home Medications Medication Instructions Recorded Confirmed atorvastatin 80 mg tablet 80 mg PO DAILY 08/20/20 01/27/21 furosemide 20 mg tablet 20 mg PO DAILY 08/20/20 01/27/21 metformin 500 mg tablet 500 mg PO DAILY 08/20/20 01/27/21 omega-3 fatty acids 1,000 mg 1,000 mg PO BID 08/20/20 01/27/21 capsule tamsulosin 0.4 mg capsule 0.4 mg PO DAILY 08/20/20 01/27/21 ergocalciferol (vitamin D2) 1,250 1,250 mcg PO QWEEK 11/04/20 01/27/21 mcg (50,000 unit) capsule ipratropium bromide 21 mcg (0.03 spray INTRANASAL 11/04/20 01/27/21 %) nasal spray albuterol sulfate 1 inh INHALATION QID PRN 11/22/20 01/27/21 aspirin 81 mg PO DAILY 11/22/20 01/27/21 hydroxyzine pamoate 25 mg capsule 25 mg PO .prn cap 11/27/20 01/27/21 glipizide 10 mg tablet 10 mg PO DAILY tab 12/24/20 01/27/21 Previous Rx's Medication Instructions Recorded sacubitril 24 mg-valsartan 26 mg 1 tab PO BID #60 tab 12/12/20 tablet carvedilol 12.5 mg tablet 12.5 mg PO BID 90 Days #180 tab 02/21/21 spironolactone 25 mg tablet 25 mg PO DAILY #90 tab 02/27/21 <BEULAH Rodgers - Last Filed: 02/20/21 19:28> Allergies/Adverse Reactions: Allergies Allergy/AdvReac Type Severity Reaction Status Date / Time No Known Allergies Allergy Mild NONE Verified 01/27/21 10:28 <BEULAH Rodgers - Last Filed: 02/20/21 19:28> Review of Systems Review of Systems: Yes all other systems are reviewed and are negative <BEULAH Rodgers Last Filed: 02/20/21 19:28> Constitutional: Constitutional: Reports as per HPI and Reports no additional constitutional complaints <BEULAH Rodgers Last Filed: 02/20/21 19:28> Eyes: Eyes: Reports as per HPI and Reports no additional eye complaints <BEULAH Rodgers Last Filed: 02/20/21 19:28> ENT: Reports system reviewed and no additional complaints, except as documented and Reports as per HPI <BEULAH Rodgers Last Filed: 02/20/21 19:28> Cardiovascular: Cardiovascular: Reports as per HPI, Reports no additional cardiovascular complaints, Reports chest pain and Reports dyspnea <BEULAH Rodgers Last Filed: 02/20/21 19:28> Respiratory: Respiratory: Reports dyspnea <BEULAH Rodgers Last Filed: 02/20/21 19:28> Gastrointestinal: Gastrointestinal: Reports as per HPI and Reports no additional gastrointestinal complaints <BEULAH Rodgers Last Filed: 02/20/21 19:28> Musculoskeletal: Musculoskeletal: Reports no additional musculoskeletal complaints and Reports as per HPI <BEULAH Rodgers - Last Filed: 02/20/21 19:28> Neurologic: Reports system reviewed and no additional complaints, except as documented and Reports as per HPI <BEULAH Rodgers - Last Filed: 02/20/21 19:28> Psychiatric: Psychiatric: Reports no additional psychiatric complaints and Reports as per HPI <BEULAH Rodgers - Last Filed: 02/20/21 19:28> [facility] Past Medical History Medical History: Medical History (Updated 02/21/21 @ 00:00 by Iman Jo) [id number] deficiency Carcinoid tumor Cardiomyopathy COPD (chronic obstructive pulmonary disease) Diabetes Essential hypertension High cholesterol HTN (hypertension) NICM (nonischemic cardiomyopathy) MARVA (obstructive sleep apnea) Other and unspecified hyperlipidemia Prostate enlargement PVC (premature ventricular contraction) Type 2 diabetes mellitus with unspecified complications <BEULAH Rogders - Last Filed: 02/20/21 19:28> Surgical History: Surgical History History of lobectomy of lung <BEULAH Rodgers - Last Filed: 02/20/21 19:28> Family History Family History: Family History Son No problems noted. <BEULAH Rodgers - Last Filed: 02/20/21 19:28> Social History Social History: Social History Household Members: Spouse Household Members Other:: Alexsandra Alcohol intake: never Smoking Status: Never smoker Second Hand Smoke Exposure: Yes (10 + yrs) <BEULAH Rodgers Last Filed: 02/20/21 19:28> Physical Exam Vital Signs: Vital Signs: Last Vital Signs Temp 98.2 F 02/20/21 16:14 Pulse 71 02/20/21 16:14 Resp 18 02/20/21 16:14 BP 134/82 02/20/21 16:14 Pulse Ox 96 02/20/21 16:14 Body Mass Index 27.8 <BEULAH Rodgers Last Filed: 02/20/21 19:28> Vital Signs: Last Vital Signs Temp 98.2 F 02/20/21 16:14 Pulse 71 02/20/21 16:14 Resp 18 02/20/21 16:14 BP 134/82 02/20/21 16:14 Pulse Ox 96 02/20/21 16:14 Body Mass Index 27.8 <Delonte Penny MD - Last Filed: 03/17/21 20:36> Const: General: cooperative, healthy appearing, comfortable, no acute distress, well developed, alert and awake; No Physically active <BEULAH Rodgers Last Filed: 02/20/21 19:28> Orientation/consciousness: patient oriented x3 <BEULAH Rodgers - Last Filed: 02/20/21 19:28> HENMT: Head: Yes normal to inspection and Yes No palpable skull fracture present <BEULAH Rodgers Last Filed: 02/20/21 19:28> Eyes: General: appearance normal, both eyes and all related structures <BEULAH Rodgers - Last Filed: 02/20/21 19:28> Neck: Neck: Yes normal visual inspection, Yes full ROM, Yes no lymphadenopathy, Yes no meningeal signs, Yes trachea midline, Yes supple and No tender <BEULAH Rodgers Last Filed: 02/20/21 19:28> Chest: Other: Positive for left lower chest wall tenderness on palpation. <BEULAH Rodgers Last Filed: 02/20/21 19:28> Chest palpation & inspection: normal inspection of the chest <BEULAH Rodgers Last Filed: 02/20/21 19:28> Resp: Effort & Inspection: normal respiratory effort and able to speak in complete sentences <BEULAH Rodgers Last Filed: 02/20/21 19:28> Auscultation: clear to auscultation bilaterally <BEULAH Rodgers Last Filed: 02/20/21 19:28> Cardio: Jugular venous distension: no JVD <BEULAH Rodgers Last Filed: 02/20/21 19:28> Heart sounds: S1 normal heart sound present and S2 normal heart sound present <BEULAH Rodgers Last Filed: 02/20/21 19:28> GI: Inspection: Yes normal to inspection and No abdominal wall ecchymosis <BEULAH Rodgers Last Filed: 02/20/21 19:28> Palpation (GI): Soft to palpation, not firm, nontender, no guarding and not rigid <BEULAH Rodgers Last Filed: 02/20/21 19:28> : General: No CVA tenderness and Yes no CVA tenderness <BEULAH Rodgers Last Filed: 02/20/21 19:28> Back/Spine/Pelvis: Back: no CVA tenderness, No CVA tenderness and No back tenderness <BEULAH Rodgers Last Filed: 02/20/21 19:28> Skin: General skin exam: no rashes or lesions noted and elasticity normal <BEULAH Rodgers Last Filed: 02/20/21 19:28> Neuro: General: patient oriented x3, gait normal, no meningeal signs and CN's II-XI intact bilaterally <BEULAH Rodgers Last Filed: 02/20/21 19:28> Cranial nerves: Yes CN's II-XII intact bilaterally <BEULAH Rodgers Last Filed: 02/20/21 19:28> Extrem: Other: Lower extremities negative for swelling, pitting edema, calf tenderness. <BEULAH Rodegrs Last Filed: 02/20/21 19:28> General: Yes normal to inspection and Yes full ROM <BEULAH Rodgers Last Filed: 02/20/21 19:28> Psych: Appearance: grossly normal, well kempt and not disheveled <BEULAH Rodgers Last Filed: 02/20/21 19:28> Course Course Course Narrative: History physical exam does not indicate COPD exacerbation. Patient is not having any wheezing in the lungs are diminished lung sounds. O2 saturation on room air is 99%. Will do basic labs include cardiac evaluation. Physical exam indicate more muscular chest wall tenderness will do cardiac evaluation due to age and risk factors. Initial EKG negative for STEMI. Patient presently denies any type of chest pain during ED visit. <BEULAH Rodgers Last Filed: 02/20/21 19:28> I have reviewed the chart <Delonte Penny MD - Last Filed: 03/17/21 20:36> Reevaluation(s) Reevaluation #1: Patient's 1st troponin is 9.2. Patient x-ray negative for any pneumonia or signs of CHF. BNP negative only 104. Coronavirus swab negative. Influenza negative. Patient is hemodynamically stable. Will do 2nd troponin and give patient Toradol. Patient's D-dimer negative. Wells score 0. <BELUAH Rodegrs - Last Filed: 02/20/21 19:28> Reevaluation #2: Second troponin came back negative. 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 Presently not suspecting PE, mi, COVID, or pneumonia. History physical exam does not indicate COPD exacerbation. Lungs are clear. Chest x-ray negative for pneumonia. not suspecting CHF. <BEULAH Rodgers - Last Filed: 02/20/21 19:28> MDM - Chest Pain MDM Narrative Medical decision making narrative: Left chest wall pain. <BEULAH Rodgers - Last Filed: 02/20/21 19:28> Lab Data Result diagrams: : 02/20/21 12:45 02/20/21 12:45 <BEULAH Rodgers - Last Filed: 02/20/21 19:28> Labs: Lab Results 02/20/21 02/20/21 02/20/21 Range/Units 12:45 12:45 12:45 WBC 9.8 (4.8-10.8) X10*3/uL RBC 4.62 (4.60-5.80) X10*6/uL Hgb 14.3 (14.0-18.0) g/dl Hct 43.2 (42-52) % MCV 93.5 (80-98) fL MCH 31.0 (27.0-33.0) pg MCHC 33.1 (31.0-36.0) g/dl RDW 14.1 (11.0-16.0) % Plt Count 163 (160-400) X10*3/uL MPV 10.5 (9.4-12.4) fL Immature Gran % (Auto) 0.4 (0.0-0.4) % Neut % (Auto) 64.8 (45-73) % Lymph % (Auto) 23.9 (20-40) % [place] % (Auto) 9.4 (2-11) % Eos % (Auto) 1.1 (0-4) % Baso % (Auto) 0.4 (0-2) % Lymph # (Auto) 2.4 (1.2-4.9) X10*3/uL [place] # (Auto) 0.9 (0.1-1.2) X10*3/uL Eos # (Auto) 0.1 (0.0-0.4) X10*3/uL Baso # (Auto) 0.0 (0.0-0.2) X10*3/uL Abs Immat Gran (auto) 0.04 H (0.00-0.03) X10*3/uL Absolute Neuts (auto) 6.4 (2.0-8.3) X10*3/uL Absolute Nucleated RBC 0.000 (0.0-0.012) X10*3/uL Nucleated RBC % (auto) 0.0 (0.0-0.2) /100WBC PT 14.6 H (10.8-13.0) SEC INR 1.2 H (0.9-1.1) APTT 35.3 (24.1-38.0) SEC D-Dimer < 200 NG/ML Hold Blue Top SEE NOTE Sodium 139 (135-145) mmol/L Potassium 4.0 (3.3-5.1) mmol/L Chloride 106 (96-108) mmol/L Carbon Dioxide 20 L (22-29) mmol/L Anion Gap 17 (12-20) BUN 14 (9-16) mg/dL Creatinine 0.89 (0.5-1.4) mg/dL Estim Creat Clear Calc 87.5 Estimated GFR > 60 Random Glucose 221 H (60-115) mg/dL Calcium 9.2 (8.4-10.2) mg/dL Ferritin 315 H (20-250) ng/mL Lactate Dehydrogenase 145 (118-273) U/L Troponin I High Sens (<3.5-35.0) ng/L B-Natriuretic Peptide (<100) pg/mL Procalcitonin ng/mL Coronavirus (PCR) (Negative) Influenza Type A (PCR) (Negative) Influenza Type B (PCR) (Negative) RSV RNA Qual (PCR) (Negative) 02/20/21 02/20/21 02/20/21 Range/Units 12:45 12:45 13:49 WBC (4.8-10.8) X10*3/uL RBC (4.60-5.80) X10*6/uL Hgb (14.0-18.0) g/dl Hct (42-52) % MCV (80-98) fL MCH (27.0-33.0) pg MCHC (31.0-36.0) g/dl RDW (11.0-16.0) % Plt Count (160-400) X10*3/uL MPV (9.4-12.4) fL Immature Gran % (Auto) (0.0-0.4) % Neut % (Auto) (45-73) % Lymph % (Auto) (20-40) % [place] % (Auto) (2-11) % Eos % (Auto) (0-4) % Baso % (Auto) (0-2) % Lymph # (Auto) (1.2-4.9) X10*3/uL [place] # (Auto) (0.1-1.2) X10*3/uL Eos # (Auto) (0.0-0.4) X10*3/uL Baso # (Auto) (0.0-0.2) X10*3/uL Abs Immat Gran (auto) (0.00-0.03) X10*3/uL Absolute Neuts (auto) (2.0-8.3) X10*3/uL Absolute Nucleated RBC (0.0-0.012) X10*3/uL Nucleated RBC % (auto) (0.0-0.2) /100WBC PT (10.8-13.0) SEC INR (0.9-1.1) APTT (24.1-38.0) SEC D-Dimer NG/ML Hold Blue Top Sodium (135-145) mmol/L Potassium (3.3-5.1) mmol/L Chloride (96-108) mmol/L Carbon Dioxide (22-29) mmol/L Anion Gap (12-20) BUN (9-16) mg/dL Creatinine (0.5-1.4) mg/dL Estim Creat Clear Calc Estimated GFR Random Glucose (60-115) mg/dL Calcium (8.4-10.2) mg/dL Ferritin (20-250) ng/mL Lactate Dehydrogenase (118-273) U/L Troponin I High Sens 9.0 (<3.5-35.0) ng/L B-Natriuretic Peptide 104 H (<100) pg/mL Procalcitonin 0.04 ng/mL Coronavirus (PCR) NEGATIVE (Negative) Influenza Type A (PCR) NEGATIVE (Negative) Influenza Type B (PCR) NEGATIVE (Negative) RSV RNA Qual (PCR) NEGATIVE (Negative) 02/20/21 Range/Units 16:10 WBC (4.8-10.8) X10*3/uL RBC (4.60-5.80) X10*6/uL Hgb (14.0-18.0) g/dl Hct (42-52) % MCV (80-98) fL MCH (27.0-33.0) pg MCHC (31.0-36.0) g/dl RDW (11.0-16.0) % Plt Count (160-400) X10*3/uL MPV (9.4-12.4) fL Immature Gran % (Auto) (0.0-0.4) % Neut % (Auto) (45-73) % Lymph % (Auto) (20-40) % [place] % (Auto) (2-11) % Eos % (Auto) (0-4) % Baso % (Auto) (0-2) % Lymph # (Auto) (1.2-4.9) X10*3/uL [place] # (Auto) (0.1-1.2) X10*3/uL Eos # (Auto) (0.0-0.4) X10*3/uL Baso # (Auto) (0.0-0.2) X10*3/uL Abs Immat Gran (auto) (0.00-0.03) X10*3/uL Absolute Neuts (auto) (2.0-8.3) X10*3/uL Absolute Nucleated RBC (0.0-0.012) X10*3/uL Nucleated RBC % (auto) (0.0-0.2) /100WBC PT (10.8-13.0) SEC INR (0.9-1.1) APTT (24.1-38.0) SEC D-Dimer NG/ML Hold Blue Top Sodium (135-145) mmol/L Potassium (3.3-5.1) mmol/L Chloride (96-108) mmol/L Carbon Dioxide (22-29) mmol/L Anion Gap (12-20) BUN (9-16) mg/dL Creatinine (0.5-1.4) mg/dL Estim Creat Clear Calc Estimated GFR Random Glucose (60-115) mg/dL Calcium (8.4-10.2) mg/dL Ferritin (20-250) ng/mL Lactate Dehydrogenase (118-273) U/L Troponin I High Sens 11.5 (<3.5-35.0) ng/L B-Natriuretic Peptide (<100) pg/mL Procalcitonin ng/mL Coronavirus (PCR) (Negative) Influenza Type A (PCR) (Negative) Influenza Type B (PCR) (Negative) RSV RNA Qual (PCR) (Negative) <BEULAH Rodgers - Last Filed: 02/20/21 19:28> Lab Results 02/20/21 02/20/21 02/20/21 Range/Units 12:45 12:45 12:45 WBC 9.8 (4.8-10.8) X10*3/uL RBC 4.62 (4.60-5.80) X10*6/uL Hgb 14.3 (14.0-18.0) g/dl Hct 43.2 (42-52) % MCV 93.5 (80-98) fL MCH 31.0 (27.0-33.0) pg MCHC 33.1 (31.0-36.0) g/dl RDW 14.1 (11.0-16.0) % Plt Count 163 (160-400) X10*3/uL MPV 10.5 (9.4-12.4) fL Immature Gran % (Auto) 0.4 (0.0-0.4) % Neut % (Auto) 64.8 (45-73) % Lymph % (Auto) 23.9 (20-40) % [place] % (Auto) 9.4 (2-11) % Eos % (Auto) 1.1 (0-4) % Baso % (Auto) 0.4 (0-2) % Lymph # (Auto) 2.4 (1.2-4.9) X10*3/uL [place] # (Auto) 0.9 (0.1-1.2) X10*3/uL Eos # (Auto) 0.1 (0.0-0.4) X10*3/uL Baso # (Auto) 0.0 (0.0-0.2) X10*3/uL Abs Immat Gran (auto) 0.04 H (0.00-0.03) X10*3/uL Absolute Neuts (auto) 6.4 (2.0-8.3) X10*3/uL Absolute Nucleated RBC 0.000 (0.0-0.012) X10*3/uL Nucleated RBC % (auto) 0.0 (0.0-0.2) /100WBC PT 14.6 H (10.8-13.0) SEC INR 1.2 H (0.9-1.1) APTT 35.3 (24.1-38.0) SEC D-Dimer < 200 NG/ML Hold Blue Top SEE NOTE Sodium 139 (135-145) mmol/L Potassium 4.0 (3.3-5.1) mmol/L Chloride 106 (96-108) mmol/L Carbon Dioxide 20 L (22-29) mmol/L Anion Gap 17 (12-20) BUN 14 (9-16) mg/dL Creatinine 0.89 (0.5-1.4) mg/dL Estim Creat Clear Calc 87.5 Estimated GFR > 60 Random Glucose 221 H (60-115) mg/dL Calcium 9.2 (8.4-10.2) mg/dL Ferritin 315 H (20-250) ng/mL Lactate Dehydrogenase 145 (118-273) U/L Troponin I High Sens (<3.5-35.0) ng/L B-Natriuretic Peptide (<100) pg/mL Procalcitonin ng/mL Coronavirus (PCR) (Negative) Influenza Type A (PCR) (Negative) Influenza Type B (PCR) (Negative) RSV RNA Qual (PCR) (Negative) 04/29/21 04/29/21 04/29/21 Range/Units 12:45 12:45 13:49 WBC (4.8-10.8) X10*3/uL RBC (4.60-5.80) X10*6/uL Hgb (14.0-18.0) g/dl Hct (42-52) % MCV (80-98) fL MCH (27.0-33.0) pg MCHC (31.0-36.0) g/dl RDW (11.0-16.0) % Plt Count (160-400) X10*3/uL MPV (9.4-12.4) fL Immature Gran % (Auto) (0.0-0.4) % Neut % (Auto) (45-73) % Lymph % (Auto) (20-40) % [place] % (Auto) (2-11) % Eos % (Auto) (0-4) % Baso % (Auto) (0-2) % Lymph # (Auto) (1.2-4.9) X10*3/uL [place] # (Auto) (0.1-1.2) X10*3/uL Eos # (Auto) (0.0-0.4) X10*3/uL Baso # (Auto) (0.0-0.2) X10*3/uL Abs Immat Gran (auto) (0.00-0.03) X10*3/uL Absolute Neuts (auto) (2.0-8.3) X10*3/uL Absolute Nucleated RBC (0.0-0.012) X10*3/uL Nucleated RBC % (auto) (0.0-0.2) /100WBC PT (10.8-13.0) SEC INR (0.9-1.1) APTT (24.1-38.0) SEC D-Dimer NG/ML Hold Blue Top Sodium (135-145) mmol/L Potassium (3.3-5.1) mmol/L Chloride (96-108) mmol/L Carbon Dioxide (22-29) mmol/L Anion Gap (12-20) BUN (9-16) mg/dL Creatinine (0.5-1.4) mg/dL Estim Creat Clear Calc Estimated GFR Random Glucose (60-115) mg/dL Calcium (8.4-10.2) mg/dL Ferritin (20-250) ng/mL Lactate Dehydrogenase (118-273) U/L Troponin I High Sens 9.0 (<3.5-35.0) ng/L B-Natriuretic Peptide 104 H (<100) pg/mL Procalcitonin 0.04 ng/mL Coronavirus (PCR) NEGATIVE (Negative) Influenza Type A (PCR) NEGATIVE (Negative) Influenza Type B (PCR) NEGATIVE (Negative) RSV RNA Qual (PCR) NEGATIVE (Negative) 02/20/21 Range/Units 16:10 WBC (4.8-10.8) X10*3/uL RBC (4.60-5.80) X10*6/uL Hgb (14.0-18.0) g/dl Hct (42-52) % MCV (80-98) fL MCH (27.0-33.0) pg MCHC (31.0-36.0) g/dl RDW (11.0-16.0) % Plt Count (160-400) X10*3/uL MPV (9.4-12.4) fL Immature Gran % (Auto) (0.0-0.4) % Neut % (Auto) (45-73) % Lymph % (Auto) (20-40) % [place] % (Auto) (2-11) % Eos % (Auto) (0-4) % Baso % (Auto) (0-2) % Lymph # (Auto) (1.2-4.9) X10*3/uL [place] # (Auto) (0.1-1.2) X10*3/uL Eos # (Auto) (0.0-0.4) X10*3/uL Baso # (Auto) (0.0-0.2) X10*3/uL Abs Immat Gran (auto) (0.00-0.03) X10*3/uL Absolute Neuts (auto) (2.0-8.3) X10*3/uL Absolute Nucleated RBC (0.0-0.012) X10*3/uL Nucleated RBC % (auto) (0.0-0.2) /100WBC PT (10.8-13.0) SEC INR (0.9-1.1) APTT (24.1-38.0) SEC D-Dimer NG/ML Hold Blue Top Sodium (135-145) mmol/L Potassium (3.3-5.1) mmol/L Chloride (96-108) mmol/L Carbon Dioxide (22-29) mmol/L Anion Gap (12-20) BUN (9-16) mg/dL Creatinine (0.5-1.4) mg/dL Estim Creat Clear Calc Estimated GFR Random Glucose (60-115) mg/dL Calcium (8.4-10.2) mg/dL Ferritin (20-250) ng/mL Lactate Dehydrogenase (118-273) U/L Troponin I High Sens 11.5 (<3.5-35.0) ng/L B-Natriuretic Peptide (<100) pg/mL Procalcitonin ng/mL Coronavirus (PCR) (Negative) Influenza Type A (PCR) (Negative) Influenza Type B (PCR) (Negative) RSV RNA Qual (PCR) (Negative) <Delonte Penny MD - Last Filed: 03/17/21 20:36> Discharge Plan Discharge Clinical Impression: Acute chest wall pain, Atypical chest pain <BEULAH Rodgers - Last Filed: 02/20/21 19:28> Patient Disposition: Home, Self-Care <BEULAH Rodgers - Last Filed: 02/20/21 19:28> Instructions: Chest Pain (ED), Chest Wall Pain (ED) <BEULAH Rodgers - Last Filed: 02/20/21 19:28> Additional Instructions: Return to the ED for worsening chest pain, shortness of breath, fever, chills, calf pain, swelling of lower extremities, coughing up blood, dizziness, weakness, or any other concerning symptoms. Blood test came back negative for heart attack. EKG negative STEMI. X-ray negative for pneumonia. COVID swab came back negative. Blood test for risk of blood clot came back negative. Negative for congestive heart failure. Did take [id number] Tylenol for pain relief. Do not take Motrin or naproxen because you are already taking aspirin. <BEULAH Rodgers - Last Filed: 02/20/21 19:28> Prescriptions: No Action Entresto 24-26 mg tablet 1 tab PO BID Qty: 60 RF: 5 carvedilol 12.5 mg tablet 12.5 mg PO BID 90 Days Qty: 180 RF: 1 spironolactone 25 mg tablet 25 mg PO DAILY Qty: 90 RF: 1 albuterol sulfate 90 mcg/actuation HFA aerosol inhaler 1 inh inhalation QID PRN (Reason: Shortness Of Breath Or Wheezing) RF: 0 aspirin 81 mg Tablet 81 mg PO DAILY RF: 0 omega-3 fatty acids 1,000 mg capsule 1,000 mg PO BID RF: 0 furosemide 20 mg tablet 20 mg PO DAILY RF: 0 tamsulosin 0.4 mg capsule 0.4 mg PO DAILY RF: 0 atorvastatin [Lipitor] 80 mg tablet 80 mg PO DAILY RF: 0 metformin 500 mg tablet 500 mg PO DAILY RF: 0 glipizide 10 mg tablet 10 mg PO DAILY RF: 0 ipratropium bromide 0.03 % spray,non-aerosol intranasal RF: 0 ergocalciferol (vitamin D2) 1,250 mcg (50,000 unit) capsule 1,250 mcg PO QWEEK RF: 0 hydroxyzine pamoate 25 mg capsule 25 mg PO .prn RF: 0 <BEULAH Rodgers - Last Filed: 02/20/21 19:28> Referrals: [facility] [Primary Care Provider] - 2 days (Chest pain.) <BEULAH Rodgers - Last Filed: 02/20/21 19:28> Interventions: ED Discharge Assessment Last Done: 02/20/21 18:33 <BEULAH Rodgers - Last Filed: 02/20/21 19:28> Discharge Date/Time: 02/20/21 18:34 <BEULAH Rodgers - Last Filed: 02/20/21 19:28> Print Language: [place]ian <BEULAH Rodgers - Last Filed: 02/20/21 19:28>
[2021-02-20 14:10] LABS: Ferritin 315 ng/mL (20-250)
[2021-02-20 14:13] LABS: Procalcitonin 0.04 ng/mL
[2021-02-20 14:27] VITALS: PULSE 79
[2021-02-20 14:37] LABS: Influenza A PCR NEGATIVE (Negative); Influenza B PCR NEGATIVE (Negative); Resp Syncy Virus RNA Qual PCR NEGATIVE (Negative); SARS COV2 PCR INHOUSE NEGATIVE (Negative)
[2021-02-20] MEDS: Ketorolac Tromethamine 30 MG/ML VIAL IVPUSH (16:11)
[2021-02-20 16:14] VITALS: BP 134/82; PULSE 71; RESP 18; TEMP 36.8; O2SAT 96
--- NOTE | 2021-02-20 16:14 | PC.NURSE ---
patient a&ox3, vss, pt medicated per order, second troponin drawn per order, pt currently watching tv, requesting food, will continue to monitor.
[2021-02-20 16:49] LABS: Troponin-I High Sensitivity 11.5 ng/L (<3.5-35.0)
== END 2021-02-20 18:34 | disposition home or self-care (01) ==
PROVIDERS: Physician Assistant; Emergency Provider Emergency Medicine
DX: R07.89 Other chest pain (principal); Z20.822 Contact with and (suspected) exposure to COVID-19; J44.9 Chronic obstructive pulmonary disease, unspecified; E78.5 Hyperlipidemia, unspecified; E11.9 Type 2 diabetes mellitus without complications
CPT/HCPCS: 0241U; 36415; 71045; 80048; 82728; 83615; 83880; 84145; 84484; 85025; 85379; 85610; 85730; 93005; 96374; 99284; 99285; J1885

== ENCOUNTER 2021-03-14 09:42 | Outpatient (REF) | payer MEDICAID, SELFPAY | END 2021-03-14 09:43 | disposition home or self-care (01) | LOC: HO.LAB 09:42 | PROVIDERS: Visit Provider Internal Medicine | DX: Z20.822 Contact with and (suspected) exposure to COVID-19 (principal) | CPT/HCPCS: C9803; U0003; U0005 ==

== ENCOUNTER → 2021-04-15 08:35 | Outpatient (BNVA) | payer MEDICAID, SELFPAY | PROVIDERS: PCP Family Medicine; Visit Provider Internal Medicine | DX: I42.8 Other cardiomyopathies (principal); I49.3 Ventricular premature depolarization; I10 Essential (primary) hypertension; Z71.89 Other specified counseling | CPT/HCPCS: 99212 ==

== ENCOUNTER 2021-05-13 08:24 | Day surgery (SDC) | payer MEDICAID, SELFPAY ==
--- NOTE | 2021-05-12 10:29 | P.CONAN_ITS ---
Documented by User: Abena Mckeon 05/12/21 10:34 HPI - Anesthesia Eval Consult details Narrative: 60yo M for VVI ICD Insertion PMFSH Active Problems Active Problems: All Active Problems (Updated 05/07/21 @ 12:38 by Abbie Nieves) Encounter for discussion regarding implantable cardioverter-defibrillator (Acute) Cardiomyopathy (Acute) COPD (chronic obstructive pulmonary disease) (Acute) Other and unspecified hyperlipidemia (Acute) Type 2 diabetes mellitus with unspecified complications (Acute) Essential hypertension (Acute) PVC (premature ventricular contraction) (Acute) NICM (nonischemic cardiomyopathy) (Acute) MARVA (obstructive sleep apnea) (Acute) Carcinoid tumor (Acute) Past Medical History Medical History [id number]-8-furlveltdzx deficiency Carcinoid tumor Cardiomyopathy COPD (chronic obstructive pulmonary disease) Diabetes Essential hypertension Gout High cholesterol HTN (hypertension) NICM (nonischemic cardiomyopathy) MARVA (obstructive sleep apnea) Other and unspecified hyperlipidemia Prostate enlargement PVC (premature ventricular contraction) Type 2 diabetes mellitus with unspecified complications Family History Family History Son No problems noted. Surgical History Surgical History History of bronchoscopy History of lobectomy of lung Hx of colonoscopy Social History Social History Household Members: Spouse Household Members Other:: Alexsandra Alcohol intake: never Patient Tobacco Use Status: Former Tobacco user Tobacco use type: Cigarette Smoked in Last 30 Days: No Second Hand Smoke Exposure: Yes (10 + yrs) Use of substances other than those prescribed or required for medical reasons: No Are you DNR?: No Advance Directives: No Advance Directives Information Provided: Yes Recently lost weight without trying: No Nutrition Risks: No Nutritional Risk Poor oral hygiene: No Meds Allergies Allergy/AdvReac Type Severity Reaction Status Date / Time No Known Allergies Allergy Mild NONE Verified 05/07/21 12:20 Home Medications Medication Instructions Recorded Confirmed Last Taken Type atorvastatin 80 mg tablet 80 mg PO DAILY 08/20/20 05/07/21 05/13/21 07:30 History furosemide 20 mg tablet 20 mg PO DAILY 08/20/20 05/07/21 05/13/21 07:30 History metformin 500 mg tablet 500 mg PO DAILY 08/20/20 05/07/21 05/13/21 07:30 History omega-3 fatty acids 1,000 mg 1,000 mg PO BID 08/20/20 05/07/21 05/13/21 07:30 History capsule tamsulosin 0.4 mg capsule 0.4 mg PO DAILY 08/20/20 05/07/21 05/13/21 07:30 History ergocalciferol (vitamin D2) 1,250 1,250 mcg PO QWEEK 11/04/20 05/07/21 Unknown History mcg (50,000 unit) capsule ipratropium bromide 21 mcg (0.03 2 spray INTRANASAL TID 11/04/20 05/07/21 Unknown History %) nasal spray albuterol sulfate 1 inh INHALATION QID PRN 11/22/20 05/07/21 Unknown History hydroxyzine pamoate 25 mg capsule 25 mg PO .prn cap 11/27/20 05/07/21 Unknown History glipizide 10 mg tablet 10 mg PO DAILY tab 12/24/20 05/07/21 Unknown History aspirin 1 tab PO DAILY 05/06/21 05/07/21 05/13/21 07:30 History methocarbamol 1 tab PO Q8H PRN 05/06/21 05/07/21 Unknown History sacubitril-valsartan [Entresto] 1 tab PO BID 05/07/21 05/07/21 05/13/21 07:30 History Exam Exam Date and Time: May 12, 2021 1029 Pertinent Lab Results Pertinent Lab Results: Laboratory Tests 02/20/21 02/20/21 12:45 12:45 WBC 9.8 Hgb 14.3 Hct 43.2 Plt Count 163 Sodium 139 Potassium 4.0 Chloride 106 Carbon Dioxide 20 L BUN 14 Creatinine 0.89 Narrative Narrative: EKG 01/2021 Vent. Rate : 081 BPM Atrial Rate : 081 BPM P-R Int : 136 ms QRS Dur : 092 ms QT Int : 388 ms P-R-T Axes : 048 -14 106 degrees QTc Int : 450 ms Normal sinus rhythm Moderate voltage criteria for LVH, may be normal variant T wave abnormality, consider lateral ischemia Abnormal ECG When compared with ECG of 18-JAN-2021 12:58, Premature ventricular complexes are no longer Present Limited Echo 10/2020 Conclusions: - Limited echo - LVEF 25-30 %. Moderate to severely reduced LVEF/ - Right Ventricle - Normal right ventricular cavity size. There is mildly decreased right ventricular systolic function. Echo 08/2020 Conclusions: - The left ventricular systolic function is severely decreased. The visually estimated ejection fraction is between 20-25%. There is severe global hypokinesis. - Evidence suggests grade II (moderate) diastolic dysfunction. - There is mild mitral valve regurgitation. - There is mild tricuspid valve regurgitation. - Moderate pulmonary hypertension is present. Holter 2020 Underlying rhythm is sinus; Average ventricular rate 73/min; range 48-99/min; Frequent premature ventricular contractions (4% of total, 4524 over 24 Hrs); Mostly isolated beats, some couplets, bigeminy, few runs; longest 19 beats at 133/min, unifocal; No sustained arrhythmias; Patient diary not available for review. Cardiac cath 2019 Cardiac catheterization with mild luminal irregularities in the LAD but otherwise unremarkable coronaries. LVEDP was also normal. Overall, nonischemic cardiomyopathy of uncertain etiology. Assessment and Plan Assessment Anesthesia Assessment: Chart Reviewed Documented by User: Uri Tejeda 05/13/21 09:17 [facility] Past Medical History Medical History Ldzua-4-misygsxpfss deficiency Carcinoid tumor Cardiomyopathy COPD (chronic obstructive pulmonary disease) Diabetes Essential hypertension Gout High cholesterol HTN (hypertension) NICM (nonischemic cardiomyopathy) MARVA (obstructive sleep apnea) Other and unspecified hyperlipidemia Prostate enlargement PVC (premature ventricular contraction) Type 2 diabetes mellitus with unspecified complications Family History Family History Son No problems noted. Surgical History Surgical History History of bronchoscopy History of lobectomy of lung Hx of colonoscopy Social History Social History Household Members: Spouse Household Members Other:: Alexsandra Alcohol intake: never Patient Tobacco Use Status: Former Tobacco user Tobacco use type: Cigarette Smoked in Last 30 Days: No Second Hand Smoke Exposure: Yes (10 + yrs) Use of substances other than those prescribed or required for medical reasons: No Are you DNR?: No Advance Directives: No Advance Directives Information Provided: Yes Recently lost weight without trying: No Nutrition Risks: No Nutritional Risk Poor oral hygiene: No Meds Allergies Allergy/AdvReac Type Severity Reaction Status Date / Time No Known Allergies Allergy Mild NONE Verified 05/07/21 12:20 Home Medications Medication Instructions Recorded Confirmed Last Taken Type atorvastatin 80 mg tablet 80 mg PO DAILY 08/20/20 05/07/21 05/13/21 07:30 History furosemide 20 mg tablet 20 mg PO DAILY 08/20/20 05/07/21 05/13/21 07:30 History metformin 500 mg tablet 500 mg PO DAILY 08/20/20 05/07/21 05/13/21 07:30 History omega-3 fatty acids 1,000 mg 1,000 mg PO BID 08/20/20 05/07/21 05/13/21 07:30 History capsule tamsulosin 0.4 mg capsule 0.4 mg PO DAILY 08/20/20 05/07/21 05/13/21 07:30 History ergocalciferol (vitamin D2) 1,250 1,250 mcg PO QWEEK 11/04/20 05/07/21 Unknown History mcg (50,000 unit) capsule ipratropium bromide 21 mcg (0.03 2 spray INTRANASAL TID 11/04/20 05/07/21 Unknown History %) nasal spray albuterol sulfate 1 inh INHALATION QID PRN 11/22/20 05/07/21 Unknown History hydroxyzine pamoate 25 mg capsule 25 mg PO .prn cap 11/27/20 05/07/21 Unknown History glipizide 10 mg tablet 10 mg PO DAILY tab 12/24/20 05/07/21 Unknown History aspirin 1 tab PO DAILY 05/06/21 05/07/21 05/13/21 07:30 History methocarbamol 1 tab PO Q8H PRN 05/06/21 05/07/21 Unknown History sacubitril-valsartan [Entresto] 1 tab PO BID 07/05/07/21 05/13/21 07:30 History Exam Airway Mallampati Class: III TM Dist: >3cm Neck ROM: Full Loose/Missing/Broken Teeth: No Heart: [id number] Lungs: cta b/l Assessment and Plan Assessment Anesthesia Assessment: Anesthesia Plan Discussed, PAT Visit and Chart Reviewed Final Anesthetic Review NPO: Yes ASA Class: IV Final Preanesthetic Review: No Changes in Pt Med Stat, Meds/Allgs Chart Reviewed, Consent Obtained/Reviewed and Anes Risks/Benef Reviewed Patient Risk: High Procedure Risk: Intermediate Assessment/Block/Sedation in SS: Assess/Block/Sedation-SS Anesthetic Plan Anesthetic Plan: GA, MAC: and Agree w/ Assess. and Plan Disposition: Standard PACU
[2021-05-13] VITALS (19 sets, daily range): BP systolic 119–162; BP diastolic 66–101; PULSE 58–83; RESP 16–20; TEMP 36–36.7; O2SAT 96–100; BMI 28.1
--- NOTE | ~2021-05-13 | XR_ITS ---
EXAMINATION: XR CHEST CLINICAL INFORMATION: Rule out pneumothorax COMPARISON: Previous chest x-ray most recent January 2021 TECHNIQUE: Frontal view of the chest was obtained. FINDINGS: There is a new left subclavian ICD with tip projecting over the ventricle. The cardiac silhouette is enlarged but stable. There are postsurgical changes to the left upper lobe. The lungs are otherwise clear. There is no pleural effusion or pneumothorax. There are degenerative changes of the spine. XR/XR chest 1V IMPRESSION: No pneumothorax. Satisfactory position of left subclavian ICD.
--- NOTE | ~2021-05-13 | XR_ITS ---
EXAMINATION: XR CHEST CLINICAL INFORMATION: Evaluate ICD lead. Question pneumothorax. COMPARISON: May 13, 2021 TECHNIQUE: AP portable view of the chest was obtained. FINDINGS: Patient is status post previous left upper lobe surgery. Left AICD in place with no definite lead fracture is identified. Appearance is similar to previous day's study. No pneumothorax. Heart normal size. No evidence of pulmonary edema. XR/XR chest 1V IMPRESSION: AICD in place without pneumothorax appreciated.
--- NOTE | ~2021-05-13 | FL_ITS ---
EXAMINATION: XR FLUOROSCOPY WITH IMAGES CLINICAL INFORMATION: ICD insertion COMPARISON: Chest x-ray of February 20, 2021 TECHNIQUE: Fluoroscopy performed by Dr. Mata Fluoroscopy time: 1133.96) minutes DAP: 363.14 mGycm2 Images: 1 FINDINGS: Single view of right ventricular lead is identified. FL/FL guidance in OR IMPRESSION: Fluoroscopy for ICD placement.
--- NOTE | 2021-05-13 08:37 | PC.NURSE ---
LAB CALLED FOR A BLOOD DRAW. MD CLEMENT BY BEDSIDE EVAL PATIENT.
--- NOTE | 2021-05-13 08:50 | PC.NURSE ---
RECALLED FOR THE LAB DRAW
[2021-05-13 09:04] LABS: Glucose, Whole Blood 243 mg/dL (60-115)
[2021-05-13 09:06] LABS: Basophils Percent Auto 0.4 % (0-2); Eosinophils Absolute Auto 0.1 X10*3/uL (0.0-0.4); Eosinophils Percent Auto 0.8 % (0-4); Hematocrit 47.3 % (42-52); Hemoglobin 15.6 g/dl (14.0-18.0); Imm Gran Abs Auto 0.04 X10*3/uL (0.00-0.03); Imm Gran Pct Auto 0.4 % (0.0-0.4); Lymphocytes Absolute Auto 3.2 X10*3/uL (1.2-4.9); Lymphocytes Percent Auto 29.8 % (20-40); MANUAL DIFF FLAG NO; Mean Corpuscular Hemoglobin 31.6 pg (27.0-33.0); Mean Corpuscular Volume 95.7 fL (80-98); Mean Platelet Volume 10.3 fL (9.4-12.4); Monocytes Percent Auto 9.5 % (2-11); Neutrophils Absolute Auto 6.3 X10*3/uL (2.0-8.3); Neutrophils Percent Auto 59.1 % (45-73); Platelet Count 190 X10*3/uL (160-400); Red Blood Count 4.94 X10*6/uL (4.60-5.80); Red Cell Distribution Width 13.7 % (11.0-16.0); White Blood Count 10.7 X10*3/uL (4.8-10.8)
[2021-05-13] MEDS: Lactated Ringers 500 ML 20 ML IVCONT (09:12)
[2021-05-13 09:13] LABS: COVID-19 Test Negative (Negative)
[2021-05-13 09:13] LABS: INTERNATIONAL NORM RATIO 1.1 (0.9-1.1); Prothrombin Time 12.4 SEC (9.9-13.0)
[2021-05-13 09:27] LABS: Anion Gap 11 (12-20); Blood Urea Nitrogen 12 mg/dL (9-16); Calcium 10.3 mg/dL (8.4-10.2); Carbon Dioxide 32 mmol/L (22-29); Chloride 100 mmol/L (96-108); Creatinine Clr Calc Pharmacy 65.8; Estimated Glomerular Filt Rate > 60; Glucose Random 260 mg/dL (60-115); Potassium 4.3 mmol/L (3.3-5.1); Sodium 139 mmol/L (135-145)
--- NOTE | 2021-05-13 12:01 | PM.OP ---
Brief Operative Note Date of Service: 05/13/21 Surgeon: Nieves Mata MD Was an Measurement And Sensing Technician used for this Procedure?: No Estimated blood loss (mL): 50
--- NOTE | 2021-05-13 12:01 | W.PM.OPN ---
Operative Note Operative Note Date of Service: 05/13/21 Narrative: Date of Service: 05/13/2021 Narrative: Procedure: Single chamber ICD Indication: non-ischemic cardiomyopathy with systolic heart failure and EF 25-30%, class III HF Procedure The risks, benefits, complications, alternatives and expected outcomes were discussed with the patient. Patient was prepped and draped in the usual sterile fashion. After the antibiotic was infused, lidocaine was infiltrated medial to the deltopectoral groove. An incision was made. The incision was extended to the prepectoral fascia using blunt dissection. Axillary access was attempted but could not be obtained. We performed a venogram and confirmed the axillary vein was much higher than expected. Axillary access was obtained. The lead was positioned in the RV. Appropriate sensing and thresholds were obtained. No diaphragmatic pacing occurred at high outputs. The lead was sutured to the muscle using 3 non-absorbable ties. Lead measurements were rechecked. A left prepectoral pocket was fashioned. The lead was attached to the generator. The system was placed in the pocket. The ICD was checked under fluoroscopy with adrquate slack noted noted. The pin of the lead was beyond the set screws. Hemostasis was verified. The pocket was closed with 3 layers. Steristrips and tegaderm were applied [employer] Device: ICD Visia AF MRI VR [id number] RV lead: 6935 Sprint Quattro serial [id number] Pacing impedance 532 ohms HV impedance 76 ohms Threshold 0.5 V at 0.4 ms R waves 8.1 Programmed VVI 40 BPM VF therapy >200 BPM ATP during charging, [id number] Plan CXR today and tomorrow to r/o pneumothorax Ancef x 2 doses for surgical prophylaxis No showering for 5 days, tegaderm dressing to stay on for 5 days No heparin subq or lovenox for 5 days, ok to continue aspirin Wound check at my office on May 27 at 10:15 AM at [address], [place] Wound instructions below have been included in Discharge Instructions: Stephenie asencio [facility] Dr. Nieves Mata Pacemaker/ICD Instructions Site Care: Leave dressing on for 5 days. Do not shower or get the area wet for 5 days. Once you remove the dressing, there will be steri-strips in place. Do not peel off, they will fall off. Hand washing is a must when caring for your incision to prevent infections. Avoid touching your incision or using lotions, creams, or ointments until it is healed (2-4 weeks). Activity: Limit the movement of your arm on the same side as the pacemaker but do not stop moving it. Avoid stretching that arm over your head or shoulder-level or lift or carry anything heavier than 5 pounds with the left arm for 6 weeks Avoid golfing, swimming, tennis, bowling, shoveling snow or mowing the lawn for 6 weeks Follow-up instructions: If you do not already have a scheduled follow-up appointment, please call [phone] for the [place] office or [phone] for the [place] office Please keep the identification card for the device with you, it will be useful when you go through security during flights. Please plug in your home monitor and leave it at your bedside. Call device company if you need assistance plugging in the monitor. Please tell all your healthcare providers you have a pacemaker, especially before procedures or before a MRI. Call your doctor if you have any redness, swelling, pus from incision site, fever of 101 degrees. If you have any bleeding from the incision site, lie down and put pressure on the incision site for 30 minutes. If this does not resolve, please get transportation to the closest hospital but do not drive yourself. Nieves Mata Electrophysiology/Cardiology Attending
[2021-05-13] MEDS: oxyCODONE HCl Immed Release 5 MG TABLET 10 MG PO (12:05)
[2021-05-13] MEDS: Acetaminophen 325 MG TABLET 650 MG PO ×2 (12:15→20:56)
[2021-05-13] MEDS: fentaNYL citrate/PF 100 MCG/2 ML VIAL 50 MCG IVPUSH ×2 (12:15→12:20)
[2021-05-13] MEDS: ondansetron HCL 4 MG/2 ML VIAL IVPUSH (12:45)
--- NOTE | 2021-05-13 14:11 | P.HPHOSP_ITS ---
History of Present Illness Date of Service: 05/13/21 <Rhea Curiel NP - Last Filed: 05/13/21 14:30> Chief Complaint: ICD placement <Rhea Curiel NP - Last Filed: 05/13/21 14:30> 60 year old man s/p ICD placement for non-ischemic cardiomyopathy with systolic heart failure and EF 25-30%, class III. Surgery was unremarkable. He had medtronic VVI ICD placed. Surgery was unremarkable. Patient has very minimal pain at this time. Sling in place. Admitted to stay for monitoring overnight. <Rhea Curiel NP - Last Filed: 05/13/21 14:30> Review of Systems Review of Systems: Denies any recent fever chills or decrease in appetite respiratory denies any shortness of breath coverage production cardiovascular denies chest pain gastrointestinal denies any dysphagia abdominal pain nausea vomiting or diarrhea genitourinary denies any dysuria frequency or hematuria musculoskeletal denies any joint pain or swelling neuropsych denies any weakness or seizures all other systems reviewed are negative <Rhea Curiel NP - Last Filed: 05/13/21 14:30> [facility] Medical History: Medical History (Updated 05/13/21 @ 14:14 by Rhea Curiel NP) Dxmua-7-lespztllqfr deficiency Carcinoid tumor Cardiomyopathy COPD (chronic obstructive pulmonary disease) Diabetes Essential hypertension Gout High cholesterol MARVA (obstructive sleep apnea) Prostate enlargement PVC (premature ventricular contraction) <Rhea Curiel NP - Last Filed: 05/13/21 14:30> Family History: Family History Son No problems noted. <Rhea Curiel NP - Last Filed: 05/13/21 14:30> Surgical History: Surgical History History of bronchoscopy History of lobectomy of lung Hx of colonoscopy <Rhea Curiel NP - Last Filed: 05/13/21 14:30> Social History: Social History Household Members: Spouse Household Members Other:: Alexsandra Alcohol intake: never Patient Tobacco Use Status: Former Tobacco user Tobacco use type: Cigarette Smoked in Last 30 Days: No Second Hand Smoke Exposure: Yes (10 + yrs) Use of substances other than those prescribed or required for medical reasons: No Are you DNR?: No Advance Directives: No Advance Directives Information Provided: Yes Recently lost weight without trying: No Nutrition Risks: No Nutritional Risk Poor oral hygiene: No <Rhea Curiel NP - Last Filed: 05/13/21 14:30> Meds Allergies/Adverse reactions: Allergies Allergy/AdvReac Type Severity Reaction Status Date / Time No Known Allergies Allergy Mild NONE Verified 05/07/21 12:20 <Rhea Curiel NP - Last Filed: 05/13/21 14:30> Active Medications: Current Medications Generic Name Dose Route Start Last Admin Trade Name Freq PRN Reason Stop Dose Admin Acetaminophen 650 mg 05/13/21 12:48 Acetaminophen 325 Mg Tablet PO Q4H PRN Pain, Mild (Pain Scale 1-3) Albuterol Sulfate 2.5 mg 05/13/21 07:42 Albuterol Sulfate (0.083%) 2.5 Mg/3 Ml Vial.Neb INHALE ONCE PRN Shortness of Breath/Wheezing Fentanyl 50 mcg 05/13/21 09:17 05/13/21 12:20 Fentanyl Citrate/Pf 100 Mcg/2 Ml Vial IVPUSH 50 mcg Q5M PRN Administration Pain, Severe (Pain Scale 7-10) Lactated Ringer's 500 mls @ 20 mls/hr 05/13/21 07:45 05/13/21 09:12 Lr IVCONT 20 mls/hr .Q24H TE Administration Promethazine HCl 12.5 mg/ 50.5 mls @ 202 mls/hr 05/13/21 09:17 Sodium Chloride IV ONCE PRN Nausea and Vomiting Cefazolin Sodium 2 gm/ Sodium 50 mls @ 100 mls/hr 05/13/21 17:00 Chloride IV Q8H TE Ondansetron HCl 4 mg 05/13/21 09:17 05/13/21 12:45 Ondansetron Hcl 4 Mg/2 Ml Vial IVPUSH 4 mg ONCE PRN Administration Nausea and Vomiting Ondansetron HCl 4 mg 05/13/21 14:05 Ondansetron Hcl 4 Mg/2 Ml Vial IVPUSH Q8H PRN Nausea and Vomiting Sodium Chloride 3 ml 05/13/21 16:00 0.9 % Sodium Chloride Flush 3 Ml Syringe IVFLUSH QSHIFT TE <Rhea Curiel NP - Last Filed: 05/13/21 14:30> Home medications: Home Medications Medication Instructions Recorded Confirmed Last Taken Type atorvastatin 80 mg tablet 80 mg PO DAILY 08/20/20 05/07/21 05/13/21 07:30 History furosemide 20 mg tablet 20 mg PO DAILY 08/20/20 05/07/21 05/13/21 07:30 History metformin 500 mg tablet 500 mg PO DAILY 08/20/20 05/07/21 05/13/21 07:30 History omega-3 fatty acids 1,000 mg 1,000 mg PO BID 08/20/20 05/07/21 05/13/21 07:30 History capsule tamsulosin 0.4 mg capsule 0.4 mg PO DAILY 08/20/20 05/07/21 05/13/21 07:30 History ergocalciferol (vitamin D2) 1,250 1,250 mcg PO QWEEK 11/04/20 05/07/21 Unknown History mcg (50,000 unit) capsule ipratropium bromide 21 mcg (0.03 2 spray INTRANASAL TID 11/04/20 05/07/21 Unknown History %) nasal spray albuterol sulfate 1 inh INHALATION QID PRN 11/22/20 05/07/21 Unknown History hydroxyzine pamoate 25 mg capsule 25 mg PO .prn cap 11/27/20 05/07/21 Unknown History glipizide 10 mg tablet 10 mg PO DAILY tab 12/24/20 05/07/21 Unknown History aspirin 1 tab PO DAILY 05/06/21 05/07/21 05/13/21 07:30 History methocarbamol 1 tab PO Q8H PRN 05/06/21 05/07/21 Unknown History sacubitril-valsartan [Entresto] 1 tab PO BID 05/07/21 05/07/21 05/13/21 07:30 History <Rhea Curiel NP - Last Filed: 05/13/21 14:30> Physical Exam Vital Signs and Narrative: Vital Signs: Last Vital Signs Temp 96.8 F 05/13/21 11:52 Pulse 59 05/13/21 13:20 Resp 18 05/13/21 13:20 BP 162/99 H 05/13/21 13:20 Pulse Ox 98 05/13/21 13:20 Body Mass Index 28.1 <Rhea Curiel NP - Last Filed: 05/13/21 14:30> Appearing in no acute distress head is normocephalic atraumatic eyes pupils are PERRLA sclera is anicteric mouth throat mucous membranes are intact and moist neck is supple no lymphadenopathy, no JVD noted lung sounds are clear to auscultation heart regular rate rhythm, clear S1, S2 positive bowel sounds, abdomen is soft, nontender neuro patient is alert x3, no focal deficits MSK sling to left arm surgical dressing to left chest, not visualized <Rhea Curiel LIGHT RAIL VEHICLE OPERATOR - Last Filed: 05/13/21 14:30> Results Labs CBC and Chem 7: : 05/13/21 08:57 05/13/21 08:57 <Rhea Curiel NP - Last Filed: 05/13/21 14:30> Labs: Laboratory Results - last 24 hr 05/13/21 05/13/21 05/13/21 08:47 08:57 08:57 MCV 95.7 MCH 31.6 MCHC 33.0 RDW 13.7 Plt Count 190 MPV 10.3 Immature Gran % (Auto) 0.4 Neut % (Auto) 59.1 Lymph % (Auto) 29.8 [place] % (Auto) 9.5 Eos % (Auto) 0.8 Baso % (Auto) 0.4 Lymph # (Auto) 3.2 [place] # (Auto) 1.0 Eos # (Auto) 0.1 Baso # (Auto) 0.0 Abs Immat Gran (auto) 0.04 H Absolute Neuts (auto) 6.3 Absolute Nucleated RBC 0.000 Nucleated RBC % (auto) 0.0 PT 12.4 INR 1.1 Anion Gap Estim Creat Clear Calc Estimated GFR POC Glucose Random Glucose Calcium COVID-19 ([facility]) Negative COVID-19 Clin Com See Note 05/13/21 05/13/21 08:57 09:00 MCV MCH MCHC RDW Plt Count MPV Immature Gran % (Auto) Neut % (Auto) Lymph % (Auto) [place] % (Auto) Eos % (Auto) Baso % (Auto) Lymph # (Auto) [place] # (Auto) Eos # (Auto) Baso # (Auto) Abs Immat Gran (auto) Absolute Neuts (auto) Absolute Nucleated RBC Nucleated RBC % (auto) PT INR Anion Gap 11 L Estim Creat Clear Calc 65.8 Estimated GFR > 60 POC Glucose 243 H Random Glucose 260 H Calcium 10.3 H D COVID-19 ([facility]) COVID-19 Clin Com <Rhea Curiel NP - Last Filed: 05/13/21 14:30> Imaging Radiologist's Impressions: Impressions Chest X-Ray 05/13/21 12:42 IMPRESSION: No pneumothorax. Satisfactory position of left subclavian ICD. <Rhea Curiel NP - Last Filed: 05/13/21 14:30> Assessment and Plan (1) Encounter for discussion regarding implantable cardioverter-defibrillator: Status: Acute <Rhea Curiel NP - Last Filed: 05/13/21 14:30> 60-year-old man admitted to extended stay status post ICD pacemaker placed ICD placement. Interrogation tomorrow Monitor on telemetry CXR tomorrow to r/o pneumothorax Sling to left arm Pain control Likely discharge tomorrow Cardiology to follow Heart failure with reduced ejection fraction. Continue carvedilol, entresto, aldactone, furosemide Diabetes mellitus Sliding scale, ADA dietExtending sign DVT prophylaxis with Mech boots Attending Dr. Hoffman Full code <Rhea Curiel NP - Last Filed: 05/13/21 14:30> (2) Cardiomyopathy: Status: Acute <Rhea Curiel NP - Last Filed: 05/13/21 14:30> Attending Attestation: Patient seen and examined independently and I was present during pagan portion of E/M service. Agree with Anna Curiel NP's history, physical, assessment, and plan. Will be observed over night with device check in the AM. If no issues, d/c home. <Yang Hoffman MD - Last Filed: 05/13/21 15:42> Quality Stroke Does the patient have a stroke diagnosis?: No <Rhea Curiel NP - Last Filed: 05/13/21 14:30> VTE Prior VTE?: Yes <Rhea Curiel NP - Last Filed: 05/13/21 14:30> VTE Risk Level:: Medical - moderate - high <Rhea Curiel NP - Last Filed: 05/13/21 14:30> VTE Device Contraindication: N/A - Device Ordered <Rhea Curiel NP - Last Filed: 05/13/21 14:30> VTE Drug Contraindication: Treatment Not Indicated <Rhea Curiel LIGHT RAIL VEHICLE OPERATOR - Last Filed: 05/13/21 14:30>
[2021-05-13 20:35] LABS: Glucose, Whole Blood 291 mg/dL (60-115)
[2021-05-13] MEDS: carvediloL 12.5 MG TABLET PO (20:54)
[2021-05-13] MEDS: Sacubitril/Valsartan 49/51 1 TAB TABLET PO (20:55)
[2021-05-13] MEDS: Insulin Lispro 100 UNIT/ML 3 ML VIAL SUBCUT (20:56)
[2021-05-13] MEDS: 0.9 % Sodium Chloride Flush 3 ML SYRINGE IVFLUSH (20:57)
[2021-05-14] MEDS: Acetaminophen 325 MG TABLET 650 MG PO ×2 (02:07→11:14)
[2021-05-14] MEDS: ceFAZolin Sodium/Dextrose,Iso 2 GM/50 ML PIGGYBACK IV (02:09)
[2021-05-14 03:21] VITALS: BP 144/72; PULSE 68; RESP 18; TEMP 36.8; O2SAT 98
[2021-05-14] MEDS: oxyCODONE HCl Immed Release 5 MG TABLET PO (06:30)
[2021-05-14 06:59] LABS: MANUAL DIFF FLAG NO
[2021-05-14 07:06] LABS: Basophils Percent Auto 0.3 % (0-2); Eosinophils Absolute Auto 0.2 X10*3/uL (0.0-0.4); Eosinophils Percent Auto 1.4 % (0-4); Hematocrit 44.6 % (42-52); Hemoglobin 14.8 g/dl (14.0-18.0); Imm Gran Abs Auto 0.05 X10*3/uL (0.00-0.03); Imm Gran Pct Auto 0.4 % (0.0-0.4); Lymphocytes Absolute Auto 2.1 X10*3/uL (1.2-4.9); Lymphocytes Percent Auto 17.4 % (20-40); Mean Corpuscular HGB Conc 33.2 g/dl (31.0-36.0); Mean Corpuscular Hemoglobin 31.8 pg (27.0-33.0); Mean Corpuscular Volume 95.9 fL (80-98); Mean Platelet Volume 10.9 fL (9.4-12.4); Monocytes Absolute Auto 1.2 X10*3/uL (0.1-1.2); Monocytes Percent Auto 10.1 % (2-11); Neutrophils Absolute Auto 8.4 X10*3/uL (2.0-8.3); Neutrophils Percent Auto 70.4 % (45-73); Platelet Count 167 X10*3/uL (160-400); Red Blood Count 4.65 X10*6/uL (4.60-5.80); Red Cell Distribution Width 13.8 % (11.0-16.0)
[2021-05-14 07:21] LABS: Glucose, Whole Blood 184 mg/dL (60-115)
[2021-05-14 07:25] VITALS: BP 141/100; PULSE 79; RESP 18; TEMP 37; O2SAT 98
[2021-05-14 07:44] LABS: Anion Gap 13 (12-20); Blood Urea Nitrogen 11 mg/dL (9-16); Calcium 9.4 mg/dL (8.4-10.2); Carbon Dioxide 30 mmol/L (22-29); Chloride 98 mmol/L (96-108); Creatinine Clr Calc Pharmacy 79.1; Estimated Glomerular Filt Rate > 60; Glucose Random 181 mg/dL (60-115); Potassium 4.2 mmol/L (3.3-5.1); Sodium 137 mmol/L (135-145)
[2021-05-14] MEDS: Insulin Lispro 100 UNIT/ML 3 ML VIAL SUBCUT (08:14)
[2021-05-14] MEDS: Sacubitril/Valsartan 49/51 1 TAB TABLET PO (08:14)
[2021-05-14] MEDS: Furosemide 20 MG TABLET PO (08:14)
[2021-05-14] MEDS: Tamsulosin HCL 0.4 MG CAPSULE PO (08:15)
[2021-05-14] MEDS: Spironolactone 25 MG TABLET PO (08:15)
[2021-05-14] MEDS: carvediloL 12.5 MG TABLET PO (08:15)
[2021-05-14] MEDS: 0.9 % Sodium Chloride Flush 3 ML SYRINGE IVFLUSH (08:15)
--- NOTE | 2021-05-14 08:30 | MHC.CM.PN ---
CM met with Patient at bedside. Patient lives in an apartment with his /HCP and he is functionally independent. Patient's goal is to return home today, no services and CM has initiated and will follow for dc planning.PCP is Dr. Farrah Jackson.
[2021-05-14 09:17] VITALS: O2SAT 98
--- NOTE | 2021-05-14 10:50 | MHC.CM.PN ---
Patient has been medically cleared for dc to home today, no services.
[2021-05-14 11:05] VITALS: BP 125/87; PULSE 78; RESP 18; TEMP 36.6; O2SAT 98
[2021-05-14 11:09] LABS: Glucose, Whole Blood 209 mg/dL (60-115)
--- NOTE | 2021-05-14 12:41 | P.PNCA_ITS ---
Subjective Subjective Date of Service: 05/14/21 Principal diagnosis: s/p ICD placement, nonischemic CMP Interval history: Cardiology eval for the above. Seen at 0815. Today he reports feeling good. Mild soreness at left upper chest at ICD site. No sob, other CPs, palpitations. Steady on feet. Feels well enough to go home today. Review of Systems Review of Systems as above Yes all other systems are reviewed and are negative Physical Exam Vital Signs: Last Vital Signs Temp 97.9 F 05/14/21 11:05 Pulse 78 05/14/21 11:05 Resp 18 05/14/21 11:05 BP 125/87 05/14/21 11:05 Pulse Ox 98 05/14/21 11:05 Body Mass Index 28.1 Const General: cooperative, no acute distress, alert and awake Orientation/consciousness: patient oriented x3 Resp Effort & Inspection: normal respiratory effort, able to speak in complete sentences and not labored Auscultation: clear to auscultation bilaterally, no crackles, no rales, no rhonchi and no wheezes Cardio Other: ICD site left upper chest intact with steristrips covered with tegaderm dressing. small amount of bloody staining on steristrip edges. Mild swelling noted. No ecchimosis visable. Mild tenderness to palpation of the area. Normal left arm assessment. Rate: regular rate Rhythm: regular rhythm Heart sounds: S1 normal heart sound present and S2 normal heart sound present Peripheral pulses: Peripheral pulses 2+ throughout Neuro General: patient oriented x3 Extrem General: Yes normal to inspection and No edema Results Labs and Meds Result diagrams: 05/14/21 06:01 05/14/21 06:01 Lab results: Laboratory Results - last 24 hr 05/13/21 05/14/21 05/14/21 20:16 06:01 06:01 WBC 12.0 H RBC 4.65 Hgb 14.8 Hct 44.6 MCV 95.9 MCH 31.8 MCHC 33.2 RDW 13.8 Plt Count 167 MPV 10.9 Immature Gran % (Auto) 0.4 Neut % (Auto) 70.4 Lymph % (Auto) 17.4 L [place] % (Auto) 10.1 Eos % (Auto) 1.4 Baso % (Auto) 0.3 Lymph # (Auto) 2.1 [place] # (Auto) 1.2 Eos # (Auto) 0.2 Baso # (Auto) 0.0 Abs Immat Gran (auto) 0.05 H Absolute Neuts (auto) 8.4 H Absolute Nucleated RBC 0.000 Nucleated RBC % (auto) 0.0 Sodium 137 Potassium 4.2 Chloride 98 Carbon Dioxide 30 H Anion Gap 13 BUN 11 Creatinine 0.99 Estim Creat Clear Calc 79.1 Estimated GFR > 60 POC Glucose 291 H Random Glucose 181 H Calcium 9.4 D 05/14/21 05/14/21 06:59 10:49 WBC RBC Hgb Hct MCV MCH MCHC RDW Plt Count MPV Immature Gran % (Auto) Neut % (Auto) Lymph % (Auto) [place] % (Auto) Eos % (Auto) Baso % (Auto) Lymph # (Auto) [place] # (Auto) Eos # (Auto) Baso # (Auto) Abs Immat Gran (auto) Absolute Neuts (auto) Absolute Nucleated RBC Nucleated RBC % (auto) Sodium Potassium Chloride Carbon Dioxide Anion Gap BUN Creatinine Estim Creat Clear Calc Estimated GFR POC Glucose 184 H 209 H Random Glucose Calcium Imaging Radiologist's impression: Impressions Chest X-Ray 05/13/21 12:42 IMPRESSION: No pneumothorax. Satisfactory position of left subclavian ICD. Progress Note: A&P Assessment and plan (1) S/P ICD (internal cardiac defibrillator) procedure: Status: Acute Assessment and Plan: Hx of nonischemic CMP EF 25-30%. Had single chamber ICD placed yesterday by Dr Snyder. CXR post procedure showed good lead placement. CXR completed this am for comparison. Device interrogation this am shows: [employer] single chamber ICD, VVI mode, low rate 40, normal threshold, No VT/ VF, [employer] < 0.1%, battery new. Site intact, described above. Mild soreness. Site care reviewed with him. Following CXR read, Pt may be discharged from cardiology perspective. Instructions per Dr Snyder as written on his operative note from yesterday. To follow with Dr Snyder in 2 weeks for wound check and will be seen in our office in 6 weeks for device check. (2) NICM (nonischemic cardiomyopathy): Status: Acute Assessment and Plan: Continue usual home cardiac meds. Time Spent With Patient Time: Total time spent is greater than 50% in coordination of care (as documented) at patient's floor/unit and/or counseling patient: Time with patient: less than 15 minutes Progress Note: Quality Stroke Does the patient have a stroke diagnosis?: No Procedures Date of Service Date of Service: 05/14/21
--- NOTE | 2021-05-14 15:56 | HO.POSTANES ---
Post Anesthesia Evaluation Post Anesthesia Evaluation Vital Signs: Vital Signs Temp Pulse Resp BP Pulse Ox 05/14/21 11:05 97.9 F 78 18 125/87 98 05/14/21 09:17 98 05/14/21 07:25 98.6 F 79 18 141/100 H 98 Anesthesia: Monitored Pain Control: Satisfactory Nausea/Vomiting: None Hydration: Adequate Anesthesia-Related Issues: No Anes. Related Issues
== END 2021-05-14 12:26 | disposition home or self-care (01) ==
LOC: HO.SSS 08:25 → HO.IMC 18:34
PROVIDERS: Internal Medicine Cardiovascular Disease; Nurse Practitioner Acute Care; PCP Family Medicine; Visit Provider Hospitalist
PROC: (CPT 33249; principal; 2021-05-13 09:30)
DX: I11.0 Hypertensive heart disease with heart failure (principal); I50.20 Unspecified systolic (congestive) heart failure; I42.8 Other cardiomyopathies; I49.3 Ventricular premature depolarization; J44.9 Chronic obstructive pulmonary disease, unspecified; E11.9 Type 2 diabetes mellitus without complications; G47.33 Obstructive sleep apnea (adult) (pediatric); Z90.2 Acquired absence of lung [part of]; Z79.82 Long term (current) use of aspirin; Z79.84 Long term (current) use of oral hypoglycemic drugs; Z79.899 Other long term (current) drug therapy; Z87.891 Personal history of nicotine dependence
CPT/HCPCS: 33249; 36415; 71045; 80048; 82947; 85025; 85610; 87635; C1722; C1777; C1892; J0690; J2250; J2405; J3010; Q9967

== ENCOUNTER 2021-07-07 10:09 | Outpatient (REF) | payer MEDICAID, SELFPAY ==
--- NOTE | ~2021-07-07 | CT_ITS ---
EXAMINATION: CT CHEST WITHOUT CONTRAST CLINICAL INFORMATION: Benign carcinoid tumor of the bronchus COMPARISON: Previous chest x-rays most recent April 2021 and CTA of the chest July 2020 TECHNIQUE: Multidetector volumetric CT imaging of the chest was done. Axial MIP volume rendering provided. Sagittal and coronal reformatted images were obtained. This CT examination was performed using dose optimization techniques as appropriate, variously including the following: *Automated exposure control *Adjustment of mA and/or kV according to patient size (this includes techniques or standardized protocols for targeted exams where dose is matched to indication/reason for exam; i.e. extremities or head) *Use of iterative reconstruction technique DLP: 180 mGy-cm FINDINGS: LUNGS: There are stable postoperative changes following partial left upper lobe lobectomy. There is a 3 mm peripheral left lower lobe nodule axial image 32 series 5 that is stable. The lungs are otherwise clear. MEDIASTINUM: There is a left subclavian AICD with tip projecting over the right ventricular apex. The heart is upper normal in size. There is no pericardial effusion. There is mild coronary artery calcification. There are small mediastinal lymph nodes. No enlarged hilar or mediastinal lymph nodes are seen. PLEURA: There is no pleural effusion. No pleural mass or thickening. AXILLA: No lymphadenopathy. UPPER ABDOMEN: There is diverticulosis of the colon. There are gallstones. OSSEOUS STRUCTURES: There are degenerative changes of the spine. CT/CT chest wo con IMPRESSION: Stable postsurgical changes to the left hemithorax. Stable 3 mm left lower lobe nodule.
== END 2021-07-07 10:10 | disposition home or self-care (01) ==
LOC: HO.CT 10:09
PROVIDERS: Visit Provider Hospitalist
DX: D3A.090 Benign carcinoid tumor of the bronchus and lung (principal); E88.01 Alpha-1-antitrypsin deficiency
CPT/HCPCS: 71250

== ENCOUNTER 2021-07-09 07:01 | Outpatient (REF) | payer MEDICAID, SELFPAY ==
--- NOTE | ~2021-07-09 | US_ITS ---
EXAMINATION: US ABDOMEN COMPLETE CLINICAL INFORMATION: Fatty liver. COMPARISON: CT abdomen and pelvis 10/02/2017. Ultrasound abdomen complete 03/25/2015 and 01/04/2013. MRI abdomen 02/14/2013. TECHNIQUE: Real-time imaging of the abdominal viscera. FINDINGS: PANCREAS: Visualized portions unremarkable; tail obscured by interposed bowel gas. ABDOMINAL AORTA: The proximal and mid segments are normal in caliber. Distal aorta obscured by interposed bowel gas. INFERIOR VENA CAVA: Visualized portions are normal. LIVER: The liver is normal in size. The liver contour is normal. There is diffuse increased liver parenchymal echogenicity, consistent with hepatic steatosis. Again seen is a hypoechoic lesion within the posterosuperior aspect of the right lobe of liver measuring 1.8 x 1.5 x 1.8 cm, stable in size from prior, with surrounding hyperechogenicity, corresponding to location of the known hemangioma as seen on prior MRI. Within the hepatic segment 6 inferiorly, there is ill-defined hyperechoic echotexture, same location as the previously seen hypoechoic structure of similar size in 2014, corresponding to the location of the known hemangioma as seen on prior MRI.. There is no intrahepatic biliary duct dilatation seen. GALLBLADDER: Cholelithiasis. No gallbladder wall thickening or pericholecystic fluid. COMMON BILE DUCT: Normal in caliber measuring 0.5 cm in diameter. RIGHT KIDNEY: Normal. No hydronephrosis. No renal calculi or focal parenchymal lesions. The kidney measures 11.6 cm in maximum dimension. LEFT KIDNEY: Normal. No hydronephrosis. No renal calculi or focal parenchymal lesions. The kidney measures 11.0 cm in maximum dimension. SPLEEN: Normal. The spleen measures 9.0 cm in maximum dimension. FREE FLUID: None. US/US abdomen complete IMPRESSION: Hepatic steatosis. Hemangiomas redemonstrated within hepatic segments 6 and 7. No new liver lesions. Cholelithiasis without sonographic evidence of cholecystitis.
== END 2021-07-09 07:02 | disposition home or self-care (01) ==
LOC: HO.US 07:01
PROVIDERS: Visit Provider Family Medicine
DX: K76.0 Fatty (change of) liver, not elsewhere classified (principal)
CPT/HCPCS: 76700

== ENCOUNTER → 2021-08-08 09:20 | Outpatient (BNVA) | payer MEDICAID, SELFPAY | PROVIDERS: PCP Family Medicine; Visit Provider Hospitalist | DX: G47.33 Obstructive sleep apnea (adult) (pediatric) (principal); J41.0 Simple chronic bronchitis; D3A.090 Benign carcinoid tumor of the bronchus and lung | CPT/HCPCS: 99212 ==

== ENCOUNTER 2021-12-08 07:32 | Emergency (ER) | payer MEDICAID, SELFPAY ==
--- NOTE | ~2021-12-08 | XR_ITS ---
EXAMINATION: XR CHEST CLINICAL INFORMATION: Chest pain COMPARISON: Previous chest x-ray most recent April 2021 TECHNIQUE: Frontal view of the chest was obtained. FINDINGS: The cardiac silhouette is enlarged but stable. There is a left subclavian AICD that appears unchanged. There are postsurgical changes to the left upper lobe. The lungs are otherwise clear. There is no pleural effusion or pneumothorax. There are degenerative changes of the spine. XR/XR chest 1V IMPRESSION: No evidence for acute disease in the chest.
--- NOTE | ~2021-12-08 | CT_ITS ---
EXAMINATION: CT ANGIOGRAM OF THE CHEST WITH AND WITHOUT CONTRAST (CT PULMONARY ANGIOGRAM FOR PE) CLINICAL INFORMATION: Reason for Exam pt c left sided chest pain and sob x 3 days ? PE COMPARISON: Previous chest x-ray from earlier the same day and chest CT June 2021 TECHNIQUE: Prior to contrast administration, noncontrast localization images were obtained. Subsequently, multidetector volumetric imaging was performed from the thoracic inlet to below the diaphragms following the administration of 65 mL Omnipaque 350 intravenous contrast. No contrast reaction reported Sagittal, coronal, and MIP oblique sagittal reformatted images were obtained on the CT workstation, uploaded to PACS, and reviewed. This CT examination was performed using dose optimization techniques as appropriate, variously including the following: *Automated exposure control *Adjustment of mA and/or kV according to patient size (this includes techniques or standardized protocols for targeted exams where dose is matched to indication/reason for exam; i.e. extremities or head) *Use of iterative reconstruction technique Total exam dose-length product 419 mGy-cm FINDINGS: QUALITY OF STUDY/CONTRAST BOLUS: Satisfactory. PULMONARY ARTERIES: There are stable postsurgical changes following left upper lobe lobectomy. There is a 3 mm left lower lobe peripheral pulmonary nodule axial image 35 series 5 that is stable. The lungs are otherwise clear. THORACIC AORTA: No aneurysm or dissection. LUNG: No focal consolidation, nodules or masses. PLEURA: No pleural effusion or pneumothorax. MEDIASTINUM: The heart is a slightly enlarged but stable. There is a left subclavian AICD device that appears unchanged. There is a very small pericardial effusion. There are no enlarged hilar or mediastinal lymph nodes. CHEST WALL/AXILLA: No axillary or internal mammary lymphadenopathy. OSSEOUS STRUCTURES: No acute or suspicious osseous abnormality. There are degenerative changes of the spine. UPPER ABDOMEN: There are gallstones in the gallbladder. There may be diverticulosis of the colon. No reflux of contrast into the hepatic veins to suggest elevated right heart pressures. CT/CT angio chest PE protocol IMPRESSION: No evidence of pulmonary embolism. Stable chest CT from June 2021 exam. VTE: negative
--- NOTE | 2021-12-08 07:38 | ECG_ITS ---
Test Reason : cp Blood Pressure : / mmHG Vent. Rate : 089 BPM Atrial Rate : 087 BPM P-R Int : 126 ms QRS Dur : 090 ms QT Int : 382 ms P-R-T Axes : 043 -13 078 degrees QTc Int : 464 ms Normal sinus rhythm with Premature atrial complexes and Premature ventricular complexes Minimal voltage criteria for LVH, may be normal variant ( R in aVL ) Nonspecific ST and T wave abnormality Prolonged QT Abnormal ECG When compared with ECG of 20-FEB-2021 13:00, Premature atrial complexes and Premature ventricular complexes are now Present Referred By: Generic ED Physician Electronically Signed By:EILEEN ORLANDO MD
[2021-12-08 07:39] VITALS: BP 152/107; PULSE 78; RESP 17; TEMP 36; O2SAT 99; BMI 28.0
[2021-12-08 07:54] LABS: MANUAL DIFF FLAG NO
[2021-12-08 08:01] LABS: Basophils Percent Auto 0.4 % (0-2); Eosinophils Absolute Auto 0.1 X10*3/uL (0.0-0.4); Eosinophils Percent Auto 1.8 % (0-4); Hematocrit 43.9 % (42.0-52.0); Hemoglobin 14.5 g/dl (14.0-18.0); Imm Gran Abs Auto 0.03 X10*3/uL (0.00-0.03); Imm Gran Pct Auto 0.4 % (0.0-0.4); Lymphocytes Absolute Auto 2.7 X10*3/uL (1.2-4.9); Lymphocytes Percent Auto 33.8 % (20-40); Mean Corpuscular Hemoglobin 30.7 pg (27.0-33.0); Mean Platelet Volume 10.3 fL (9.4-12.4); Monocytes Absolute Auto 0.7 X10*3/uL (0.1-1.2); Monocytes Percent Auto 9.1 % (2-11); Neutrophils Absolute Auto 4.3 x10*3/uL (2.0-8.3); Neutrophils Percent Auto 54.5 % (45-73); Platelet Count 172 X10*3/uL (160-400); Red Blood Count 4.72 X10*6/uL (4.60-5.80); Red Cell Distribution Width 14.1 % (11.0-16.0); White Blood Count 7.9 X10*3/uL (4.8-10.8)
[2021-12-08 08:09] LABS: Anion Gap 11 (12-20); Blood Urea Nitrogen 13 mg/dL (9-16); Calcium 9.5 mg/dL (8.4-10.2); Carbon Dioxide 30 mmol/L (22-29); Chloride 105 mmol/L (96-108); Creatinine Clr Calc Pharmacy 83.8; Estimated Glomerular Filt Rate > 60; Glucose Random 201 mg/dL (60-115); Potassium 3.6 mmol/L (3.3-5.1); Sodium 142 mmol/L (135-145)
[2021-12-08 08:16] LABS: Troponin-I High Sensitivity 15.9 ng/L (<3.5-35.0)
[2021-12-08 09:28] VITALS: BP 143/101; PULSE 74; RESP 16; O2SAT 99
[2021-12-08 10:00] LABS: B Type Natriuretic Peptide 163 pg/mL (<100)
[2021-12-08] MEDS: Cyclobenzaprine HCl 10 MG TABLET PO (10:06)
[2021-12-08] MEDS: NaPROXEN 500 MG TABLET PO (10:06)
--- NOTE | 2021-12-08 10:56 | ED_ITS ---
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 He reports that this started after he was moving some furniture that was heavy. He reports that he takes a baby aspirin daily. Otherwise he denies any other blood thinners. On the triage assessment he reported lower back pain that is chronic not worse. Also they stated shortness of breath x3 days intermittently although patient denies this to me and he reports it when he takes a deep breath it hurts his left chest wall/chest. He denies any headaches, dizziness, changes in vision, paresthesias, nausea/vomiting, dyspnea on exertion, orthopnea, palpitations, shortness of breath, radiation of the chest pain, worsening back pain than his chronic lower back pain, abdominal pain, weakness, rashes or any other symptoms complaints or concerns at this time. MD complaint: chest pain Pertinent past history: other (See above) Onset (ago): day(s) (3) Timing of current episode: episodic Prior episodes: No Onset: other (While moving furniture on Wednesday) Pain location: left chest Pain radiation: none Severity: mild Quality: aching, sharp, burning and shooting Relieving factors: nothing Exacerbating factors: inspiration, palpation and movement Treatment prior to arrival: none Risk Factors Coronary artery disease risk factors: diabetes, hyperlipidemia and hypertension Thoracic aortic dissection risk factors: none Related Data Home Medications Medication Instructions Recorded Confirmed atorvastatin 80 mg tablet (Lipitor) 80 mg PO DAILY 08/20/20 05/07/21 metformin 500 mg tablet 500 mg PO DAILY 08/20/20 05/07/21 omega-3 fatty acids 1,000 mg 1,000 mg PO BID 08/20/20 05/07/21 capsule tamsulosin 0.4 mg capsule 0.4 mg PO DAILY 08/20/20 05/07/21 ergocalciferol (vitamin D2) 1,250 1,250 mcg PO QWEEK 11/04/20 05/07/21 mcg (50,000 unit) capsule ipratropium bromide 21 mcg (0.03 2 spray INTRANASAL TID 11/04/20 05/07/21 %) nasal spray albuterol sulfate 90 mcg/actuation 1 inh INHALATION QID PRN 11/22/20 05/07/21 aerosol inhaler hydroxyzine pamoate 25 mg capsule 25 mg PO .prn cap 11/27/20 05/07/21 glipizide 10 mg tablet 10 mg PO DAILY tab 12/24/20 05/07/21 aspirin 81 mg tablet,delayed 1 tab PO DAILY 05/06/21 05/07/21 release methocarbamol 750 mg tablet 1 tab PO Q8H PRN 05/06/21 05/07/21 Previous Rx's Medication Instructions Recorded budesonide-formoterol HFA 160 2 puff INHALATION BID #10.2 g 06/11/21 mcg-4.5 mcg/actuation aerosol inhaler (Symbicort) carvedilol 12.5 mg tablet 12.5 mg PO BID 90 Days #180 tab 08/13/21 sacubitril 49 mg-valsartan 51 mg 1 tab PO BID 90 Days #180 tab 09/22/21 tablet (Entresto) furosemide 20 mg tablet 20 mg PO DAILY #90 tab 10/27/21 spironolactone 25 mg tablet 25 mg PO DAILY #90 tab 11/26/21 cyclobenzaprine 10 mg tablet 10 mg PO Q8H PRN #14 tab 12/08/21 lidocaine 5 % topical patch 1 patch TOPICAL DAILY #15 ea 12/08/21 (Lidoderm) naproxen 500 mg tablet 500 mg PO BID PRN #14 tab 12/08/21 Allergies Allergy/AdvReac Type Severity Reaction Status Date / Time No Known Allergies Allergy Mild NONE Verified 08/08/21 09:58 Review of Systems Review of Systems: Constitutional : No Weight loss, No Fever, No Chills, No Night Sweats, No Fatigue, No Malaise ENT/Mouth : No Hearing loss, No Ear Pain, No Nasal Congestion, No Sinus Pain, No Hoarseness, No sore throat, No Rhinorrhea, No Swallowing Difficulty Eyes: No Eye Pain, No Swelling, No Redness, No Foreign Body, No Discharge, No Vision Changes Cardiovascular : + Chest Pain, No SOB, No Dyspnea on Exertion, No Orthopnea, No Edema, No Palpitations Respiratory : No Cough, No Sputum, No Wheezing, No Smoke Exposure, No Dyspnea Gastrointestinal : No Nausea, No Vomiting, No Diarrhea, No Constipation, No abdominal Pain, No Hematochezia, No Melena Genitourinary : no irregular bleeding, No Dysuria, No Urinary Frequency, No Hematuria, No Urinary Incontinence, No Urgency, No Flank Pain, No Urinary Flow Changes, No Hesitancy Musculoskeletal : No joint pain, No Myalgias, No Joint Swelling Skin : No Skin Lesions, No rash Neuro : No Weakness, No Numbness, No Paresthesias, No Loss of Consciousness, No Dizziness, No Headache Psych : No Anxiety/Panic, No Depression, No SI/HI/AH/VH, No Social Issues, Heme/Lymph: No Bruising, No Bleeding,No Lymphadenopathy Endocrine : No Polyuria, No Polydipsia, No Temperature Intolerance Yes all other systems are reviewed and are negative [facility] Past Medical History Attestation statement: The following information was validated with the patient. Medical History [id number] deficiency Carcinoid tumor Cardiomyopathy COPD (chronic obstructive pulmonary disease) Diabetes Encounter for discussion regarding implantable cardioverter-defibrillator Essential hypertension Gout High cholesterol MARVA (obstructive sleep apnea) Prostate enlargement PVC (premature ventricular contraction) Surgical History History of bronchoscopy History of lobectomy of lung Hx of colonoscopy Family History Family History Son No problems noted. Social History Social History Household Members: Spouse Household Members Other:: Alexsandra Housing: House Do you presently have visiting nurse or other home services: No Alcohol intake: never Patient Tobacco Use Status: Former Tobacco user Tobacco use type: Cigarette Second Hand Smoke Exposure: No Advance Directives: No Advance Directives Information Provided: No service: No Current occupational status: retired Physical Exam Vital Signs: Vital Signs: Last Vital Signs Temp 96.8 F 12/08/21 07:39 Pulse 74 02/14/22 09:28 Resp 16 12/08/21 09:28 BP 143/101 H 12/08/21 09:28 Pulse Ox 99 12/08/21 09:28 BMI result Body Mass Index 28.0 vital signs have been reviewed as normal and appeared to be correct. Blood pressure 157/107. Heart rate normal. Respiration rate normal. Temperature normal. Oxygen saturation normal. Appearance: Alert. Oriented X3. No acute distress. Head: Normal external exam. Normocephalic. Atraumatic. Eyes: PERRLA. EOMI. Conjunctiva and sclera normal. Eyelids normal. ENT: Pharynx normal. Uvula midline. Moist mucous membranes. No trismus noted. No drooling noted. No muffled voice noted. Neck: Normal inspection. Neck supple. FROM. No adenopathy. Thyroid Normal. No meningeal signs. No neck mass noted. CVS: Normal heart rate and rhythm. Heart sound normal. Pulses normal throughout. No murmurs/rales/gallops. Respiratory: No respiratory distress. Painless inspiration. Breath sounds normal. No wheezes/rales/rhonchi noted. Patient does have tenderness on the left upper chest wall. No rashes are noted. No crepitus is noted. No abnormality/bruising/abrasion/lacerations or signs of infection or fluctuance noted. No accessory muscle usage noted or decreased air movement noted. Abdomen: Soft and nontender. Bowel sounds normal in all 4 quadrants. No distention noted. No organomegaly noted. No visible injury noted. Back: No CVA tenderness. Full range of motion noted. No rashes/lesion/induration/fluctuance or signs of infection noted. Skin: Skin warm and dry. Normal skin color. Normal skin turgor. No rashes/lesions/lacerations noted. Extremities: No lower extremity edema. No calf tenderness is noted. Extremities exhibit normal range of motion. Extremities nontender. Neuro: Oriented X 3. No motor deficit. No sensory deficit. Reflexes normal. Normal steady gait. No focal neuro deficits noted. Vascular: + radial pulses/+ 2 distal pedal pulses/+2 dorsalis pedis b/l. Normal cap refill. No cyanosis noted to upper extremity nails and lower extremity toes nails. 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 He reports that this started after he was moving some furniture that was heavy. He reports that he takes a baby aspirin daily. Otherwise he denies any other blood thinners. On the triage assessment he reported lower back pain that is chronic not worse. Also they stated shortn ess of breath x3 days intermittently although patient denies this to me and he reports it when he takes a deep breath it hurts his left chest wall/chest. - Labs were obtained while the patient was in the waiting room and patient's carbon dioxide 30. Anion gap 11. Random glucose 201. Troponin 15.9. BNP 163. Otherwise all other labs are within normal limits. EKG is normal sinus rhythm with PVCs otherwise no acute ischemic changes are noted and similar compared to prior. Chest x-ray within normal limits no acute processes are noted. Therefore at this time will place a repeat troponin. Will obtain a CTA of chest for possible PE. Will provide 500 mg of naproxen and 10 mg of Flexeril then re- evaluate. Reevaluation(s) Reevaluation #1: - repeat troponin negative delta. CTA of chest for PE negative for PE or any other acute processes. Therefore I re-evaluated the patient and he reported some improvement with the naproxen and Flexeril therefore most likely musculoskeletal pain from the heavy lifting of the furniture. The patient's blood pressure was elevated although the nurse has not updated the patient's blood pressure readings while the patient was here in the emergency department I will instruct her to do this at this time as patient reports he took his blood pressure medications today. Therefore at this time will DC home with symptomatic treatment instructions return if any new or worsening symptoms to follow up with primary care provider. Time: 12:45 [facility] - Chest Pain Medical Records Data Attestation: I reviewed the patient's medical records. Lab Data Attestation: I reviewed the patient's lab results. Result diagrams: 12/08/21 07:50 12/08/21 07:51 Labs: Lab Results 12/08/21 12/08/21 12/08/21 Range/Units 07:50 07:50 07:51 WBC 7.9 (4.8-10.8) X10*3/uL RBC 4.72 (4.60-5.80) X10*6/uL Hgb 14.5 (14.0-18.0) g/dl Hct 43.9 (42.0-52.0) % MCV 93.0 (80.0-98.0) fL MCH 30.7 (27.0-33.0) pg MCHC 33.0 (31.0-36.0) g/dl RDW 14.1 (11.0-16.0) % Plt Count 172 (160-400) X10*3/uL MPV 10.3 (9.4-12.4) fL Immature Gran % (Auto) 0.4 (0.0-0.4) % Neut % (Auto) 54.5 (45-73) % Lymph % (Auto) 33.8 (20-40) % [place] % (Auto) 9.1 (2-11) % Eos % (Auto) 1.8 (0-4) % Baso % (Auto) 0.4 (0-2) % Lymph # (Auto) 2.7 (1.2-4.9) X10*3/uL [place] # (Auto) 0.7 (0.1-1.2) X10*3/uL Eos # (Auto) 0.1 (0.0-0.4) X10*3/uL Baso # (Auto) 0.0 (0.0-0.2) X10*3/uL Abs Immat Gran (auto) 0.03 (0.00-0.03) X10*3/uL Absolute Neuts (auto) 4.3 (2.0-8.3) x10*3/uL Absolute Nucleated RBC 0.000 (0.0-0.012) X10*3/uL Nucleated RBC % (auto) 0.0 (0.0-0.2) /100WBC Sodium 142 (135-145) mmol/L Potassium 3.6 (3.3-5.1) mmol/L Chloride 105 (96-108) mmol/L Carbon Dioxide 30 H (22-29) mmol/L Anion Gap 11 L (12-20) BUN 13 (9-16) mg/dL Creatinine 0.92 (0.5-1.4) mg/dL Estim Creat Clear Calc 83.8 Estimated GFR > 60 Random Glucose 201 H (60-115) mg/dL Calcium 9.5 (8.4-10.2) mg/dL Troponin I High Sens 15.9 (<3.5-35.0) ng/L B-Natriuretic Peptide 163 H (<100) pg/mL COVID-19 ([facility]) (Negative) COVID-19 Clin Com 12/08/21 12/08/21 Range/Units 11:17 11:18 WBC (4.8-10.8) X10*3/uL RBC (4.60-5.80) X10*6/uL Hgb (14.0-18.0) g/dl Hct (42.0-52.0) % MCV (80.0-98.0) fL MCH (27.0-33.0) pg MCHC (31.0-36.0) g/dl RDW (11.0-16.0) % Plt Count (160-400) X10*3/uL MPV (9.4-12.4) fL Immature Gran % (Auto) (0.0-0.4) % Neut % (Auto) (45-73) % Lymph % (Auto) (20-40) % [place] % (Auto) (2-11) % Eos % (Auto) (0-4) % Baso % (Auto) (0-2) % Lymph # (Auto) (1.2-4.9) X10*3/uL [place] # (Auto) (0.1-1.2) X10*3/uL Eos # (Auto) (0.0-0.4) X10*3/uL Baso # (Auto) (0.0-0.2) X10*3/uL Abs Immat Gran (auto) (0.00-0.03) X10*3/uL Absolute Neuts (auto) (2.0-8.3) x10*3/uL Absolute Nucleated RBC (0.0-0.012) X10*3/uL Nucleated RBC % (auto) (0.0-0.2) /100WBC Sodium (135-145) mmol/L Potassium (3.3-5.1) mmol/L Chloride (96-108) mmol/L Carbon Dioxide (22-29) mmol/L Anion Gap (12-20) BUN (9-16) mg/dL Creatinine (0.5-1.4) mg/dL Estim Creat Clear Calc Estimated GFR Random Glucose (60-115) mg/dL Calcium (8.4-10.2) mg/dL Troponin I High Sens 13.2 (<3.5-35.0) ng/L B-Natriuretic Peptide (<100) pg/mL COVID-19 ([facility]) Negative (Negative) COVID-19 Clin Com See Note Imaging Data Chest x-ray: Attestation: I personally reviewed and interpreted this imaging study as follows: Radiologist's impression: FINDINGS: The cardiac silhouette is enlarged but stable. There is a left subclavian AICD that appears unchanged. There are postsurgical changes to the left upper lobe. The lungs are otherwise clear. There is no pleural effusion or pneumothorax. There are degenerative changes of the spine. XR/XR chest 1V IMPRESSION: No evidence for acute disease in the chest. CT of chest for PE: Attestation: I personally reviewed and interpreted this imaging study as follows: Radiologist's impression: FINDINGS: QUALITY OF STUDY/CONTRAST BOLUS: Satisfactory. PULMONARY ARTERIES: There are stable postsurgical changes following left upper lobe lobectomy. There is a 3 mm left lower lobe peripheral pulmonary nodule axial image 35 series 5 that is stable. The lungs are otherwise clear. THORACIC AORTA: No aneurysm or dissection. LUNG: No focal consolidation, nodules or masses. PLEURA: No pleural effusion or pneumothorax. MEDIASTINUM: The heart is a slightly enlarged but stable. There is a left subclavian AICD device that appears unchanged. There is a very small pericardial effusion. There are no enlarged hilar or mediastinal lymph nodes. CHEST WALL/AXILLA: No axillary or internal mammary lymphadenopathy. OSSEOUS STRUCTURES: No acute or suspicious osseous abnormality. There are degenerative changes of the spine. UPPER ABDOMEN: There are gallstones in the gallbladder. There may be diverticulosis of the colon.? No reflux of contrast into the hepatic veins to suggest elevated right heart pressures. CT/CT angio chest PE protocol IMPRESSION: No evidence of pulmonary embolism. Stable chest CT from June 2021 exam. ? VTE: negative ECG Data ECG #1: Attestation: I personally reviewed and interpreted this ECG as follows: ECG interpretation date: 12/08/21 ECG interpretation time: 07:39 Interpretation: Normal sinus rhythm and a circular rate of 89 with PVCs and nonspecific ST abnormalities with prolonged QT at 384 milliseconds otherwise no acute ischemic changes are noted and similar when compared to prior EKG 02/20/2021. Discharge Plan Discharge Clinical Impression: Atypical chest pain, Acute chest wall pain Patient Disposition: Home, Self-Care Instructions: Chest Wall Pain (ED) Prescriptions: New naproxen 500 mg tablet 500 mg PO BID PRN (Reason: pain) Qty: 14 0RF cyclobenzaprine 10 mg tablet 10 mg PO Q8H PRN (Reason: Muscle spasm) Qty: 14 0RF lidocaine [Lidoderm] 5 % adhesive patch,medicated 1 patch topical DAILY Qty: 15 0RF Rx Instructions: leave on most painful area for up to 12 hrs. May be substituted No Action budesonide-formoterol [Symbicort] 160-4.5 mcg/actuation HFA aerosol inhaler 2 puff inhalation BID Qty: 10.2 11RF carvedilol 12.5 mg tablet 12.5 mg PO BID 90 Days Qty: 180 1RF Rx Instructions: must administer with a meal/food Entresto 49-51 mg tablet 1 tab PO BID 90 Days Qty: 180 1RF furosemide 20 mg tablet 20 mg PO DAILY Qty: 90 3RF spironolactone 25 mg tablet 25 mg PO DAILY Qty: 90 2RF albuterol sulfate 90 mcg/actuation HFA aerosol inhaler 1 inh inhalation QID PRN (Reason: Shortness Of Breath Or Wheezing) 0RF aspirin 81 mg tablet,delayed release (DR/EC) 1 tab PO DAILY 0RF methocarbamol 750 mg tablet 1 tab PO Q8H PRN (Reason: muscle spasm) 0RF omega-3 fatty acids 1,000 mg capsule 1,000 mg PO BID 0RF tamsulosin 0.4 mg capsule 0.4 mg PO DAILY 0RF atorvastatin [Lipitor] 80 mg tablet 80 mg PO DAILY 0RF metformin 500 mg tablet 500 mg PO DAILY 0RF glipizide 10 mg tablet 10 mg PO DAILY 0RF ipratropium bromide 0.03 % spray,non-aerosol 2 spray intranasal TID 0RF ergocalciferol (vitamin D2) 1,250 mcg (50,000 unit) capsule 1,250 mcg PO QWEEK 0RF hydroxyzine pamoate 25 mg capsule 25 mg PO .prn 0RF Referrals: Farrah Jackson DO [Primary Care Provider] - 2 days Print Language: Belarusian
[2021-12-08 11:40] LABS: COVID-19 Test Negative (Negative)
[2021-12-08 11:50] LABS: Troponin-I High Sensitivity 13.2 ng/L (<3.5-35.0)
[2021-12-08] MEDS: iohexoL 350 MG/ML 100 ML INFUS..BTL 65 ML IV (11:58)
[2021-12-08 13:37] VITALS: BP 136/97
== END 2021-12-08 13:40 | disposition home or self-care (01) ==
PROVIDERS: Physician Assistant Medical; Emergency Provider Emergency Medicine; PCP Family Medicine
DX: R07.89 Other chest pain (principal); R06.02 Shortness of breath; Z20.822 Contact with and (suspected) exposure to COVID-19; I11.0 Hypertensive heart disease with heart failure; I50.9 Heart failure, unspecified; E11.9 Type 2 diabetes mellitus without complications; E78.5 Hyperlipidemia, unspecified; Z95.810 Presence of automatic (implantable) cardiac defibrillator; Z79.02 Long term (current) use of antithrombotics/antiplatelets; Z79.82 Long term (current) use of aspirin
CPT/HCPCS: 36415; 71045; 71275; 80048; 83880; 84484; 85025; 87635; 93005; 99284; Q9967

== ENCOUNTER → 2022-02-05 09:41 | Outpatient (BNVA) | payer MEDICAID, SELFPAY | PROVIDERS: PCP Family Medicine; Visit Provider Hospitalist | DX: J41.0 Simple chronic bronchitis (principal); G47.33 Obstructive sleep apnea (adult) (pediatric); Z86.012 Personal history of benign carcinoid tumor; Z79.899 Other long term (current) drug therapy; Z99.89 Dependence on other enabling machines and devices | CPT/HCPCS: 99212 ==

== ENCOUNTER 2022-02-18 11:05 | Emergency (ER) | payer MEDICAID, SELFPAY ==
--- NOTE | ~2022-02-18 | XR_ITS ---
EXAMINATION: XR ELBOW, LEFT CLINICAL INFORMATION: Left elbow pain with muscle strain. COMPARISON: None TECHNIQUE: AP, lateral, and oblique views of the left elbow. FINDINGS: There is no acute fracture or dislocation. The joint spaces are unremarkable. There is no joint effusion. Mild degenerative spurring is seen off of the medial lateral humeral epicondyles. The soft tissues are unremarkable. XR/XR elbow LT min 3V IMPRESSION: Mild degenerative spurring off of the humeral epicondyles bilaterally. No acute abnormality.
--- NOTE | ~2022-02-18 | US_ITS ---
EXAMINATION: US VENOUS WITH DOPPLER UPPER EXTREMITY, LEFT CLINICAL INFORMATION: Swelling. Pain over the left upper arm. COMPARISON: None TECHNIQUE: Ultrasound of the upper extremity is performed using compression sonography and color and pulse Doppler flow with assessment of augmentation of flow. There is also imaging and Doppler assessment of the jugular and subclavian veins. Spectral analysis with color-flow imaging is performed. FINDINGS: Respiratory variation, normal compression, and augmented flow are noted throughout the upper extremity including the axillary, brachial, cubital, and radial and ulnar veins. There is normal flow in the internal jugular and subclavian veins. There is no visible deep or superficial thrombophlebitis. If the patient's symptoms progress, a followup ultrasound in 5 -7 days might be of value to exclude proximal propagation from a nonvisualized distal arm vein. US/US venous duplex UE LT IMPRESSION: No DVT demonstrated in left upper extremity.
[2022-02-18 11:52] VITALS: BP 142/94; PULSE 68; RESP 18; TEMP 36.3; O2SAT 99; BMI 27.6
--- NOTE | 2022-02-18 12:15 | ED_ITS ---
HPI - Extremity Problem General Chief complaint: Extremity Injury, Upper Stated complaint: Elbow pain Time Seen by Provider: 02/18/22 12:05 Source: patient Mode of arrival: ambulatory Limitations: no limitations History of Present Illness HPI Narrative: 61-year-old male presents with left elbow pain. Two months ago patient was in the hospital and had an IV in his left antecubital fossa, states he has had some mild pain in the vein since then. A few days ago patient was moving furniture and strained his left arm, and now the pain in his left elbow is worse. He did not fall on his left elbow. The pain is over a vein in his left AC, and it comes and goes. No chest pain, shortness of breath, nausea or vomiting, bruising, numbness, tingling Related Data Home Medications Medication Instructions Recorded Confirmed atorvastatin 80 mg tablet (Lipitor) 80 mg PO DAILY 08/20/20 05/07/21 metformin 500 mg tablet 500 mg PO DAILY 08/20/20 05/07/21 omega-3 fatty acids 1,000 mg 1,000 mg PO BID 08/20/20 05/07/21 capsule tamsulosin 0.4 mg capsule 0.4 mg PO DAILY 08/20/20 05/07/21 ergocalciferol (vitamin D2) 1,250 1,250 mcg PO QWEEK 11/04/20 05/07/21 mcg (50,000 unit) capsule ipratropium bromide 21 mcg (0.03 2 spray INTRANASAL TID 11/04/20 05/07/21 %) nasal spray albuterol sulfate 90 mcg/actuation 1 inh INHALATION QID PRN 11/22/20 05/07/21 aerosol inhaler aspirin 81 mg tablet,delayed 1 tab PO DAILY 05/06/21 05/07/21 release methocarbamol 750 mg tablet 1 tab PO Q8H PRN 05/06/21 05/07/21 Previous Rx's Medication Instructions Recorded budesonide-formoterol HFA 160 2 puff INHALATION BID #10.2 g 06/11/21 mcg-4.5 mcg/actuation aerosol inhaler (Symbicort) furosemide 20 mg tablet 20 mg PO DAILY #90 tab 10/27/21 spironolactone 25 mg tablet 25 mg PO DAILY #90 tab 11/26/21 cyclobenzaprine 10 mg tablet 10 mg PO Q8H PRN #14 tab 12/08/21 lidocaine 5 % topical patch 1 patch TOPICAL DAILY #15 ea 12/08/21 (Lidoderm) naproxen 500 mg tablet 500 mg PO BID PRN #14 tab 12/08/21 sacubitril 49 mg-valsartan 51 mg 1 tab PO BID 90 Days #180 tab 12/22/21 tablet (Entresto) carvedilol 12.5 mg tablet 12.5 mg PO BID 90 Days #180 tab 02/10/22 prednisone 20 mg tablet 40 mg PO DAILY 5 Days #10 tab 02/18/22 Allergies Allergy/AdvReac Type Severity Reaction Status Date / Time No Known Allergies Allergy Mild NONE Verified 02/05/22 10:02 Review of Systems Constitutional: Constitutional: Denies body ache(s), Denies chills, Denies fatigue, Denies fever(s), Denies headache(s), Denies malaise and Denies weakness Eyes: Eyes: Denies diplopia ENT: Denies vertigo, Denies dizziness, Denies headache(s) and Denies throat swelling Cardiovascular: Cardiovascular: Denies chest pain, Denies syncope, Denies leg edema, Denies lightheadedness, Denies Loss of Consciousness, Denies palpitations and Denies dyspnea Respiratory: Respiratory: Denies chest congestion, Denies cough and Denies dyspnea Gastrointestinal: Gastrointestinal: Denies abdominal pain, Denies hematochezia, Denies constipation, Denies diarrhea and Denies vomiting Musculoskeletal: Musculoskeletal: Reports arthralgias Comments: Pain in left elbow antecubital fossa Neurologic: Denies confusion, Denies vertigo, Denies dizziness, Denies syncope, Denies headache(s) and Denies weakness Psychiatric: Psychiatric: Denies anxiety, Denies confusion and Denies depression Endocrine: Endocrine: Denies fatigue and Denies palpitations Allergic/Immunologic: Allergic/Immunologic: Denies throat swelling PMFSH Past Medical History Medical History [id number] deficiency Carcinoid tumor Cardiomyopathy COPD (chronic obstructive pulmonary disease) Diabetes Encounter for discussion regarding implantable cardioverter-defibrillator Essential hypertension Gout High cholesterol MARVA (obstructive sleep apnea) Prostate enlargement PVC (premature ventricular contraction) Surgical History History of bronchoscopy History of lobectomy of lung Hx of colonoscopy Family History Family History Son No problems noted. Social History Social History Household Members: Spouse Household Members Other:: Alexsandra Housing: House Do you presently have visiting nurse or other home services: No Alcohol intake: never Patient Tobacco Use Status: Former Tobacco user Tobacco use type: Cigarette Second Hand Smoke Exposure: No Advance Directives: No Advance Directives Information Provided: No service: No Current occupational status: retired Physical Exam Vital Signs: Vital Signs: Last Vital Signs Temp 97.3 F 02/18/22 11:52 Pulse 68 02/18/22 11:52 Resp 18 02/18/22 11:52 BP 142/94 H 02/18/22 11:52 Pulse Ox 99 02/18/22 11:52 BMI result Body Mass Index 27.6 Const: General: No confusion Nutritional Appearance: well nourished Orientation/consciousness: No confusion Limitations: no limitations Eyes: Conjunctivae: conjunctivae normal Pupils: Equal, round and reactive p upils present EOM: EOMs intact bilaterally Neck: Neck: Yes full ROM, Yes no lymphadenopathy and Yes supple Resp: Effort & Inspection: normal respiratory effort and able to speak in complete sentences Auscultation: clear to auscultation bilaterally, no crackles, no rales, no rhonchi and no wheezes Cardio: Rate: regular rate Rhythm: regular rhythm Heart sounds: S1 normal heart sound present and S2 normal heart sound present GI: Inspection: Yes normal to inspection Palpation (GI): Soft to palpation, nontender, no guarding and not rigid Percussion: Yes normal to percussion Auscultation: normal bowel sounds Skin: General skin exam: no rashes or lesions noted Neuro: General: No confusion Cranial nerves: Yes Equal, round and reactive pupils present Extrem: Left upper extremity: normal to inspection, full ROM, normal capillary refill, no joint enlargement and elbow/forearm Details: normal to inspection, tenderness Location: of the antercubital fossa, normal ROM and distal pulses intact; Negative for no swelling, no unusual warmth, no ecchymosis, no crepitus and no deformity; No no cyanosis and no edema Psych: Appearance: grossly normal Affect: normal affect Attitude: cooperative Thought process: Normal thought process present Course Course Course Narrative: 61-year-old male presents with pain over a vein in his left antecubital fossa, and general muscle tenderness in the volar aspect of his left elbow. On exam, patient has intact left upper extremity pulses, sensation, range of motion, motor strength. Patient is mildly tender in left AC joint, and the soft tissues of his left elbow No redness, swelling, warmth. No concern for joint infection Will get ultrasound to rule out thrombophlebitis, will get x-ray which I expect to be negative as this is atraumatic. Suspect muscle strain of left elbow, gave ibuprofen Reevaluation(s) Reevaluation #1: Ultrasound negative for DVT, x-ray shows no fracture or dislocation of elbow, shows small olecranon spur, with spur and medial epicondyle, notable for calcific tendinitis on the lateral side, in his common extensor tendon, this is where patient has pain. Our PACS is down, and I am getting these results written on paper from the radiologist. Will prescribe prednisone, have patient follow-up with orthopedics for possible steroid injection and physical therapy referral. Return precautions given, all patient's questions answered. Discharge Plan Discharge Clinical Impression: Calcific tendonitis of left forearm Patient Disposition: Home, Self-Care Instructions: Calcific Tendinitis (ED) Additional Instructions: Please call Orthopedics at the following number for follow-up appointment. I have referred you and should be calling you as well. [phone] Please rest, ice, and elevate your left elbow as you are able. Please take prednisone as prescribed I have sent to your pharmacy. The Orthopedic may consider a steroid injection, or may refer you to physical therapy. Please return if you have worsening pain, or any other new or concerning symptoms. Prescriptions: New prednisone 20 mg tablet 40 mg PO DAILY 5 Days Qty: 10 0RF No Action budesonide-formoterol [Symbicort] 160-4.5 mcg/actuation HFA aerosol inhaler 2 puff inhalation BID Qty: 10.2 11RF furosemide 20 mg tablet 20 mg PO DAILY Qty: 90 3RF spironolactone 25 mg tablet 25 mg PO DAILY Qty: 90 2RF Entresto 49-51 mg tablet 1 tab PO BID 90 Days Qty: 180 2RF carvedilol 12.5 mg tablet 12.5 mg PO BID 90 Days Qty: 180 1RF Rx Instructions: must administer with a meal/food Please call and schedule cardiology follow-up albuterol sulfate 90 mcg/actuation HFA aerosol inhaler 1 inh inhalation QID PRN (Reason: Shortness Of Breath Or Wheezing) 0RF aspirin 81 mg tablet,delayed release (DR/EC) 1 tab PO DAILY 0RF methocarbamol 750 mg tablet 1 tab PO Q8H PRN (Reason: muscle spasm) 0RF naproxen 500 mg tablet 500 mg PO BID PRN (Reason: pain) Qty: 14 0RF cyclobenzaprine 10 mg tablet 10 mg PO Q8H PRN (Reason: Muscle spasm) Qty: 14 0RF lidocaine [Lidoderm] 5 % adhesive patch,medicated 1 patch topical DAILY Qty: 15 0RF Rx Instructions: leave on most painful area for up to 12 hrs. May be substituted omega-3 fatty acids 1,000 mg capsule 1,000 mg PO BID 0RF tamsulosin 0.4 mg capsule 0.4 mg PO DAILY 0RF atorvastatin [Lipitor] 80 mg tablet 80 mg PO DAILY 0RF metformin 500 mg tablet 500 mg PO DAILY 0RF ipratropium bromide 0.03 % spray,non-aerosol 2 spray intranasal TID 0RF ergocalciferol (vitamin D2) 1,250 mcg (50,000 unit) capsule 1,250 mcg PO QWEEK 0RF Referrals: Bonifacio Starkey MD [Physician] -
[2022-02-18] MEDS: Ibuprofen 800 MG TABLET PO (12:49)
== END 2022-02-18 14:29 | disposition home or self-care (01) ==
PROVIDERS: Emergency Provider Emergency Medicine; PCP Family Medicine
DX: M65.222 Calcific tendinitis, left upper arm (principal); M79.622 Pain in left upper arm; E11.9 Type 2 diabetes mellitus without complications; I10 Essential (primary) hypertension; J44.9 Chronic obstructive pulmonary disease, unspecified
CPT/HCPCS: 73080; 93971; 99284

== ENCOUNTER → 2022-04-20 09:14 | Outpatient (BNVA) | payer MEDICAID, SELFPAY | PROVIDERS: PCP Family Medicine; Visit Provider Physician Assistant | DX: S59.902A Unspecified injury of left elbow, initial encounter (principal) | CPT/HCPCS: 99202 ==

== ENCOUNTER → 2022-08-04 13:23 | Outpatient (BNVA) | payer MEDICAID, SELFPAY | PROVIDERS: PCP Family Medicine; Referring Provider Family Medicine; Visit Provider Internal Medicine | DX: I42.8 Other cardiomyopathies (principal); I49.3 Ventricular premature depolarization; I10 Essential (primary) hypertension; E11.9 Type 2 diabetes mellitus without complications | CPT/HCPCS: 99212 ==

== ENCOUNTER 2022-10-13 08:52 | Emergency (ER) | payer MEDICAID, SELFPAY ==
[2022-10-13 09:14] VITALS: BP 153/107; PULSE 90; RESP 18; TEMP 36.7; O2SAT 99; BMI 27.8
--- NOTE | 2022-10-13 12:44 | ED_ITS ---
HPI - Eye Problem General Chief complaint: Eye Problems Stated complaint: L eye swelling Time Seen by Provider: 10/13/22 12:35 History of Present Illness HPI Narrative: Patient complains of left upper eyelid redness and swelling for 2-3 days that is mildly itchy but there is no eye pain no vision change no vision loss no discharge Related Data Home Medications Medication Instructions Recorded Confirmed atorvastatin 80 mg tablet (Lipitor) 80 mg PO DAILY 08/20/20 08/04/22 metformin 500 mg tablet 500 mg PO DAILY 08/20/20 08/04/22 omega-3 fatty acids 1,000 mg 1,000 mg PO BID 08/20/20 08/04/22 capsule tamsulosin 0.4 mg capsule 0.4 mg PO DAILY 08/20/20 08/04/22 ergocalciferol (vitamin D2) 1,250 1,250 mcg PO QWEEK 11/04/20 08/04/22 mcg (50,000 unit) capsule ipratropium bromide 21 mcg (0.03 2 spray intranasal TID 11/04/20 08/04/22 %) nasal spray albuterol sulfate 90 mcg/actuation 1 inh inhalation QID PRN Shortness 11/22/20 08/04/22 aerosol inhaler Of Breath Or Wheezing aspirin 81 mg tablet,delayed 1 tab PO DAILY 05/06/21 08/04/22 release methocarbamol 750 mg tablet 1 tab PO Q8H PRN muscle spasm 05/06/21 08/04/22 Previous Rx's Medication Instructions Recorded budesonide-formoterol HFA 160 2 puff inhalation BID #10.2 grams 06/11/21 mcg-4.5 mcg/actuation aerosol inhaler (Symbicort) furosemide 20 mg tablet 20 mg PO DAILY #90 tabs 10/27/21 cyclobenzaprine 10 mg tablet 10 mg PO Q8H PRN Muscle spasm #14 12/08/21 tabs lidocaine 5 % topical patch 1 patch topical DAILY pain #15 ea 12/08/21 (Lidoderm) naproxen 500 mg tablet 500 mg PO BID PRN pain #14 tabs 12/08/21 sacubitril 49 mg-valsartan 51 mg 1 tab PO BID 90 days #180 tabs 12/22/21 tablet (Entresto) carvedilol 12.5 mg tablet 12.5 mg PO BID 90 days #180 tabs 02/10/22 spironolactone 25 mg tablet 25 mg PO DAILY #90 tabs 08/28/22 erythromycin 5 mg/gram (0.5 %) eye 0.5 inch ophthalmic (eye) TID 5 10/13/22 ointment days #3.5 grams Allergies Allergy/AdvReac Type Severity Reaction Status Date / Time No Known Allergies Allergy Mild NONE Verified 08/04/22 14:10 Review of Systems Review of Systems: Negative no vision loss no vision change no photophobia no discharge from eye no eye pain no blurriness no foreign body no injury, no h eadache no neck pain no chest pain no numbness or weakness no skin rash Yes all other systems are reviewed and are negative [facility] Past Medical History Source: nursing notes reviewed Medical History (Updated 10/14/22 @ 00:01 by Iman Jo) [id number] deficiency Carcinoid tumor Cardiomyopathy COPD (chronic obstructive pulmonary disease) Diabetes Encounter for discussion regarding implantable cardioverter-defibrillator Essential hypertension Gout High cholesterol MARVA (obstructive sleep apnea) Prostate enlargement PVC (premature ventricular contraction) Surgical History History of bronchoscopy History of lobectomy of lung Hx of colonoscopy Family History Family History Son No problems noted. 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 Physical Exam Vital Signs: Vital Signs: Last Vital Signs Temp 98.1 F 10/13/22 09:14 Pulse 90 10/13/22 09:14 Resp 18 10/13/22 09:14 BP 153/107 H 10/13/22 09:14 Pulse Ox 99 10/13/22 09:14 O2 Del Method 10/13/22 09:14 BMI result Body Mass Index 27.8 General appearance no acute distress The eyes have 2020 vision with correction The left eye had some swelling of the upper lid, mild crusting of the upper lid, pupils equal round reactive to light extraocular motions were intact, there was no evidence of photophobia there was no redness of the conjunctiva no yell or watery discharge from eye Pharynx was clear Neck was supple Respiratory no distress Skin no rash Course Course Course Narrative: Patient with mildly swollen lid with likely blepharitis I did not see a stye He is treated with erythromycin ointment and with no other eye related complaint, vision normal no pain no discomfort he is discharged Medications Administered Discontinued Medications Generic Name Dose Route Start Last Admin Trade Name Freq PRN Reason Stop Dose Admin Erythromycin 1 cm 10/13/22 12:45 10/13/22 12:53 Erythromycin Base 0.5% Oph Oin 1 Gm Tube EYE-LEFT 10/13/22 12:46 1 cm ONCE ONE Administration Discharge Plan Discharge Clinical Impression: Blepharitis of left eye Patient Disposition: Home, Self-Care Additional Instructions: This may be developing into a stye, it appears there is a minor infection of the left upper lid Apply antibiotic ointment to the lid and in the eye for 5 days Apply warm cloth to the eye several times a day when convenient Return any time for eye pain, vision loss, any worse condition or any concerns If not improving and not getting any worse follow with eye doctor Prescriptions: New erythromycin 5 mg/gram (0.5 %) ointment 0.5 inch ophthalmic (eye) TID 5 Days Qty: 3.5 0RF No Action budesonide-formoterol [Symbicort] 160-4.5 mcg/actuation HFA aerosol inhaler 2 puff inhalation BID Qty: 10.2 11RF furosemide 20 mg tablet 20 mg PO DAILY Qty: 90 3RF Entresto 49-51 mg tablet 1 tab PO BID 90 Days Qty: 180 2RF carvedilol 12.5 mg tablet 12.5 mg PO BID 90 Days Qty: 180 1RF Rx Instructions: must administer with a meal/food Please call and schedule cardiology follow-up spironolactone 25 mg tablet 25 mg PO DAILY Qty: 90 3RF albuterol sulfate 90 mcg/actuation HFA aerosol inhaler 1 inh inhalation QID PRN (Reason: Shortness Of Breath Or Wheezing) aspirin 81 mg tablet,delayed release (DR/EC) 1 tab PO DAILY methocarbamol 750 mg tablet 1 tab PO Q8H PRN (Reason: muscle spasm) naproxen 500 mg tablet 500 mg PO BID PRN (Reason: pain) Qty: 14 0RF cyclobenzaprine 10 mg tablet 10 mg PO Q8H PRN (Reason: Muscle spasm) Qty: 14 0RF lidocaine [Lidoderm] 5 % adhesive patch,medicated 1 patch topical DAILY Qty: 15 0RF Rx Instructions: leave on most painful area for up to 12 hrs. May be substituted omega-3 fatty acids 1,000 mg capsule 1,000 mg PO BID tamsulosin 0.4 mg capsule 0.4 mg PO DAILY atorvastatin [Lipitor] 80 mg tablet 80 mg PO DAILY metformin 500 mg tablet 500 mg PO DAILY ipratropium bromide 0.03 % spray,non-aerosol 2 spray intranasal TID ergocalciferol (vitamin D2) 1,250 mcg (50,000 unit) capsule 1,250 mcg PO QWEEK Referrals: Britton Shahid [Physician] - (Left eye stye/blepharitis) Interventions: ED Discharge Assessment Last Done: 10/13/22 12:56 Discharge Date/Time: 10/13/22 12:59
[2022-10-13] MEDS: Erythromycin Base 0.5% Oph Oin 1 GM TUBE 1 CM EYE-LEFT (12:53)
== END 2022-10-13 12:59 | disposition home or self-care (01) ==
PROVIDERS: Emergency Provider Emergency Medicine Emergency Medical Services; PCP Family Medicine
DX: H01.004 Unspecified blepharitis left upper eyelid (principal); E11.9 Type 2 diabetes mellitus without complications; I10 Essential (primary) hypertension; E78.5 Hyperlipidemia, unspecified; Z79.02 Long term (current) use of antithrombotics/antiplatelets; Z79.84 Long term (current) use of oral hypoglycemic drugs; Z79.899 Other long term (current) drug therapy; Z79.82 Long term (current) use of aspirin
CPT/HCPCS: 99282; 99283

== ENCOUNTER 2022-10-28 12:50 | Outpatient (REF) | payer MEDICAID, SELFPAY ==
[2022-10-28 14:52] LABS: Anion Gap 16 (12-20); Blood Urea Nitrogen 14 mg/dL (9-16); Calcium 9.7 mg/dL (8.4-10.2); Carbon Dioxide 26 mmol/L (22-29); Chloride 105 mmol/L (96-108); Estimated Glomerular Filt Rate > 60; Glucose Random 113 mg/dL (60-115); Sodium 143 mmol/L (135-145)
[2022-10-28 14:59] LABS: B Type Natriuretic Peptide 150 pg/mL (<100)
== END 2022-10-28 12:51 | disposition home or self-care (01) ==
LOC: HO.LAB 12:50
PROVIDERS: PCP Family Medicine; Referring Provider Family Medicine; Visit Provider Internal Medicine
DX: I42.8 Other cardiomyopathies (principal); I49.3 Ventricular premature depolarization; I10 Essential (primary) hypertension; E11.9 Type 2 diabetes mellitus without complications
CPT/HCPCS: 36415; 80048; 83880; 93005; 99212

== ENCOUNTER → 2022-10-30 09:15 | Outpatient (REF) | payer MEDICAID, SELFPAY ==
--- NOTE | 2022-10-30 09:19 | HM_ITS ---
Conclusion: 1. Patient was monitored for total period of 2 days 2. Baseline was normal sinus rhythm with average heart rate of 83 beats per minute 3. No significant pauses or bradycardia noted 4. Total of 12,757 PVCs accounting for 5.3% of total beats account for frequent PVCs. There were 63 nonsustained ventricular tachycardia event noted with fastest at 177 beats per minute and the longest 8 beats, consistent with frequent nonsustained ventricular tachycardia 5. Total of 152 PACs accounting for rare PACs with 145 beat episode of SVT at 165 beats per minute 6. No patient reported events MTDD
--- NOTE | 2022-10-30 09:19 | CA_ITS ---
Transthoracic Echocardiogram Patient (Last, First, Middle): Sonny Curiel, Gender: Male Date of : 1960 Age: 61 Procedure Date: 10/30/2022 Procedure Type: Transthoracic Echocardiogram Location: OP Height: 170.18 cm Weight: 77.57 kg BSA: 1.89 m2 Heart Rate: 85 bpm BP: 120 / 70 mmHg [employer] Operator: GUME Referring MD: Tomer Carolina MD Symptoms: I42.8 - Other cardiomyopathies Study Quality: Poor/Contrast ECG Rhythm: Sinus Conclusions: - The left ventricular systolic function is severely decreased. The visually estimated ejection fraction is between 20-25%. - No obvious valvular pathology seen on this study. Findings Procedure Information Contrast agent, definity, is being given per protocol without apparent complications. Left Ventricle Mildly increased left ventricular cavity size. There is normal left ventricular wall thickness. The left ventricular systolic function is severely decreased. The visually estimated ejection fraction is between 20 25%. There is severe global hypokinesis. Diastolic function is indeterminate on the basis of available data. Right Ventricle Normal right ventricular cavity size. There is mildly decreased right ventricular systolic function. Atria Both atria are normal in size. Aortic Valve There is a normal trileaflet aortic valve. There is mild calcification of the aortic valve. There is no aortic valve stenosis. There is no aortic valve regurgitation. Mitral Valve The mitral valve appears normal. There is mild anterior and posterior mitral leaflet thickening. There is trace mitral valve regurgitation. There is no mitral valve stenosis. Pulmonic Valve The pulmonic valve is likely normal. Tricuspid Valve There is trace tricuspid valve regurgitation. There is no evidence of pulmonary hypertension. Great Vessels The aortic annulus, sinuses of valsalva, sino tubular ridge, and asc aorta are normal in size. Venous The inferior vena cava is normal in size and collapses greater than 50% with inspiration. Pericardium/Pleural There is a moderate loculated pericardial effusion overlying the right atrium. Trace to small size over left ventricle. Prior Study Comparison No significant change compared to prior study dated: 11/01/2020. Pericardial effusion over right atrium possibly present in past. Recommendations, Care & Conclusions No obvious valvular pathology seen on this study. Measurements 2D Linear Measurements IVSd: 0.94 0.6-0.9/0.6-1.0 cm LVIDd: 5.63 3.9-5.3/4.2-5.9 cm LVIDd Index: 2.98 2.4-3.2/2.2-3.1 cm/m2 LVIDs: 4.90 2.0-3.6 cm LVPWd: 0.98 0.7-1.1 cm LA Diam: 3.40 2.7-3.8/3.0-4.0 cm LAIDs Index: 1.80 1.5-2.3 cm/m2 LV Mass: 261.10 67-162/88-224 g LV Mass Index: 138.15 43-95/49-115 g/m2 LVOT Diam: 2.50 3.0+(-)1.3 cm 2D Systolic Function EF 4C: 38.80 >55% EF 2C: 30.60 >55% Mitral Valve E'Lateral: 3.92 E'Medial: 3.15 Aortic Valve AoV Pk Michael: 1.13 AoV Mn Michael: 0.83 AoV VTI: 0.20 AoV Pk Grad: 5.00 Aov Mn Grad: 3.00 JOSE Cont.VTI: 3.17 LVOT LVOT Pk Michael: 0.74 LVOT Mn Michael: 0.54 LVOT VTI: 0.13 LVOT Pk Grad: 2.00 LVOT Mn Grad: 1.00 LVOT Diam: 2.50 LVOT Area: 4.91 Diastolic Function E'Medial: 3.15 E' Laterial: 3.92 Right Ventricle TAPSE (mm): 16.50 TVS' Michael: 10.80 Tricuspid Valve TR Pk Michael: 2.31 TR Pk Grad: 21.00 RA Press: 3.00 RVSP: 24.00 Great Vessels Aorta Sinus of Valsalva: 3.50 2.0-3.5 cm Ao Asc: 3.40 2.1-3.4 cm Pulmonary Valve PV Pk Michael: 0.92 Peak PV Grad: 3.00 Updated in Other Vendor System with Status of Final Tomer Carolina MD electronically signed on 11/01/2022 1:14:58 PM with status of Final
== END ==
LOC: HO.CARD 09:15
PROVIDERS: Visit Provider Internal Medicine
DX: I42.8 Other cardiomyopathies (principal); R00.0 Tachycardia, unspecified
CPT/HCPCS: 93225; 93306; Q9957

== ENCOUNTER 2022-12-19 11:19 | Emergency (ER) | payer MEDICAID, SELFPAY ==
--- NOTE | ~2022-12-19 | XR_ITS ---
EXAMINATION: XR CHEST, 2 VIEWS CLINICAL INFORMATION: Chest pain, shortness of breath COMPARISON: 12/08/2021 TECHNIQUE: PA and lateral views of the chest were obtained. FINDINGS: Left pectoral AICD with leads terminating over the right ventricle. Cardiac silhouette is enlarged. Mediastinal contour is normal. Normal pulmonary vasculature. Chain trang are noted in the region of the left suprahilar region, most consistent with prior left upper lobectomy. No pneumothorax or pleural effusion. Degenerative disc disease in the thoracic spine. No acute osseous findings. XR/XR chest 2V IMPRESSION: 1. No acute pulmonary findings. 2. Enlarged cardiac silhouette 3. Status post left upper lobectomy.
--- NOTE | 2022-12-19 11:21 | ECG_ITS ---
Test Reason : CHEST PAIN Blood Pressure : / mmHG Vent. Rate : 074 BPM Atrial Rate : 074 BPM P-R Int : 128 ms QRS Dur : 092 ms QT Int : 390 ms P-R-T Axes : 052 -16 087 degrees QTc Int : 432 ms Sinus rhythm with occasional Premature ventricular complexes Minimal voltage criteria for LVH, may be normal variant ( R in aVL ) Nonspecific ST and T wave abnormality Abnormal ECG When compared with ECG of 08-DEC-2021 07:39, Premature atrial complexes are no longer Present Referred By: Sanna Jones Electronically Signed By:IMTIAZ BROWN
--- NOTE | 2022-12-19 11:21 | ED.GENADULT ---
HPI - General Adult General Chief complaint: Chest Pain <BEULAH Jenkins - Last Filed: 12/19/22 11:22> Stated complaint: Chest pain/SOB <BEULAH Jenkins - Last Filed: 12/19/22 11:22> Time Seen by Provider: 12/19/22 12:51 <BEULAH Jenkins - Last Filed: 12/19/22 11:22> Source: patient <BUELAH Arteaga - Last Filed: 12/20/22 12:58> Mode of arrival: ambulatory <BEULAH Arteaga - Last Filed: 12/20/22 12:58> History of Present Illness HPI narrative: 62-year-old male with a past medical history carcinoid tumor s/p resection, cardiomyopathy, COPD, diabetes, gout, HLD, MARVA, presenting to the ED complaining of substernal chest pain around 06:00AM described as burning with associated SOB. Admits symptoms have resolved at present. Denies fever, chills, cough, abdominal pain, nausea /vomiting, pedal edema decreased p.o. intake. <BEULAH Arteaga - Last Filed: 12/20/22 12:58> Onset (ago): day(s) <BEULAH Arteaga - Last Filed: 12/20/22 12:58> Related Data Home medications: Home Medications Medication Instructions Recorded Confirmed atorvastatin 80 mg tablet (Lipitor) 80 mg PO DAILY 08/20/20 10/28/22 metformin 500 mg tablet 500 mg PO DAILY 08/20/20 10/28/22 omega-3 fatty acids 1,000 mg 1,000 mg PO BID 08/20/20 10/28/22 capsule tamsulosin 0.4 mg capsule 0.4 mg PO DAILY 08/20/20 10/28/22 ergocalciferol (vitamin D2) 1,250 1,250 mcg PO QWEEK 11/04/20 10/28/22 mcg (50,000 unit) capsule ipratropium bromide 21 mcg (0.03 2 spray intranasal TID 11/04/20 10/28/22 %) nasal spray albuterol sulfate 90 mcg/actuation 1 inh inhalation QID PRN Shortness 11/22/20 10/28/22 aerosol inhaler Of Breath Or Wheezing aspirin 81 mg tablet,delayed 1 tab PO DAILY 05/06/21 10/28/22 release methocarbamol 750 mg tablet 1 tab PO Q8H PRN muscle spasm 05/06/21 10/28/22 Previous Rx's Medication Instructions Recorded budesonide-formoterol HFA 160 2 puff inhalation BID #10.2 grams 06/11/21 mcg-4.5 mcg/actuation aerosol inhaler (Symbicort) cyclobenzaprine 10 mg tablet 10 mg PO Q8H PRN Muscle spasm #14 12/08/21 tabs lidocaine 5 % topical patch 1 patch topical DAILY pain #15 ea 12/08/21 (Lidoderm) naproxen 500 mg tablet 500 mg PO BID PRN pain #14 tabs 12/08/21 spironolactone 25 mg tablet 25 mg PO DAILY #90 tabs 08/28/22 erythromycin 5 mg/gram (0.5 %) eye 0.5 inch ophthalmic (eye) TID 5 10/13/22 ointment days #3.5 grams carvedilol 12.5 mg tablet 12.5 mg PO BID #180 tabs 10/20/22 furosemide 20 mg tablet 20 mg PO DAILY #90 tabs 10/20/22 sacubitril 49 mg-valsartan 51 mg 1 tab PO BID 90 days #180 tabs 11/16/22 tablet (Entresto) magnesium oxide 400 mg (241.3 mg 400 mg PO BEDTIME #30 tabs 12/19/22 magnesium) tablet <BEULAH Jenkins - Last Filed: 12/19/22 11:22> Allergies/adverse reactions: Allergies Allergy/AdvReac Type Severity Reaction Status Date / Time No Known Allergies Allergy Mild NONE Verified 12/19/22 11:34 <BEULAH Jenkins - Last Filed: 12/19/22 11:22> Review of Systems Review of Systems: Constitutional: No Fever, No Chills, No Fatigue, No Malaise ENT/Mouth: No Ear Pain, No sore throat, No Rhinorrhea, No Swallowing Difficulty Eyes: No Eye Pain, No Swelling, No Redness Cardiovascular: + Chest Pain, + SOB, No Dyspnea on Exertion, No Orthopnea, No Edema, No Palpitations Respiratory: No Cough, No Sputum, No Dyspnea Gastrointestinal: No Nausea, No Vomiting, No Diarrhea, No Constipation, No Abdominal pain, Genitourinary: No Dysuria, No Urinary Frequency, No Hematuria, No Flank Pain, No Urinary Flow Changes, No Hesitancy Musculoskeletal: No joint pain, No Myalgias, No Joint Swelling Skin: No Skin Lesions, No rash Neuro: No Weakness, No Numbness, NNo Dizziness, No Headache <BEULAH Arteaga - Last Filed: 12/20/22 12:58> Yes all other systems are reviewed and are negative <BEULAH Arteaga - Last Filed: 12/20/22 12:58> Constitutional: Constitutional: Reports as per HPI <BEULAH Arteaga - Last Filed: 12/20/22 12:58> [facility] Past Medical History Attestation statement: The following information was validated with the patient. <BEULAH Arteaga - Last Filed: 12/20/22 12:58> Medical History: Medical History [id number] deficiency Carcinoid tumor Cardiomyopathy COPD (chronic obstructive pulmonary disease) Diabetes Encounter for discussion regarding implantable cardioverter-defibrillator Essential hypertension Gout High cholesterol MARVA (obstructive sleep apnea) Prostate enlargement PVC (premature ventricular contraction) <BEULAH Jenkins - Last Filed: 12/19/22 11:22> Surgical History: Surgical History History of bronchoscopy History of lobectomy of lung Hx of colonoscopy <BEULAH Jenkins - Last Filed: 12/19/22 11:22> Family History Family History: Family History Son No problems noted. Father No problems noted. 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 <BEULAH Jenkins Last Filed: 12/19/22 11:22> Physical Exam ED Vital Signs: Vital Signs - 24 hr 12/19/22 11:34 Temperature 98.1 F Pulse Rate 67 Respiratory Rate 16 Blood Pressure 144/102 H Pulse Oximetry 99 Oxygen Delivery Method Room Air BMI result Body Mass Index 26.6 <BEULAH Jenkins - Last Filed: 12/19/22 11:22> Vital Signs - 24 hr 12/19/22 11:34 Temperature 98.1 F Pulse Rate 67 Respiratory Rate 16 Blood Pressure 144/102 H Pulse Oximetry 99 Oxygen Delivery Method Room Air BMI result Body Mass Index 26.6 <BEULAH Arteaga - Last Filed: 12/20/22 12:58> Const General: cooperative, healthy appearing and no acute distress <BEULAH Arteaga - Last Filed: 12/20/22 12:58> Orientation/consciousness: patient oriented x3 <BEULAH Arteaga - Last Filed: 12/20/22 12:58> Limitations: no limitations <BEULAH Arteaga - Last Filed: 12/20/22 12:58> HENMT Head: Yes normal to inspection and Yes atraumatic <BEULAH Arteaga - Last Filed: 12/20/22 12:58> Ears: hearing grossly normal bilaterally <BEULAH Arteaga - Last Filed: 12/20/22 12:58> General nose exam: Normal external nose present <BEULAH Arteaga - Last Filed: 12/20/22 12:58> Face and sinus: Yes normal facial exam <BEULAH Arteaga - Last Filed: 12/20/22 12:58> Eyes General: appearance normal, both eyes and all related structures <BEULAH Arteaga - Last Filed: 12/20/22 12:58> EOM: EOMs intact bilaterally <BEULAH Arteaga - Last Filed: 12/20/22 12:58> Neck Neck: Yes normal visual inspection and Yes no meningeal signs <BEULAH Arteaga - Last Filed: 12/20/22 12:58> Resp Effort & Inspection: normal respiratory effort and no respiratory distress <BEULAH Arteaga - Last Filed: 12/20/22 12:58> Auscultation: clear to auscultation bilaterally, no crackles, no rhonchi and no wheezes <BEULAH Arteaga - Last Filed: 12/20/22 12:58> Cardio Rate: regular rate <BEULAH Arteaga - Last Filed: 12/20/22 12:58> Heart sounds: S1 normal heart sound present and S2 normal heart sound present <BEULAH Arteaga - Last Filed: 12/20/22 12:58> GI Inspection: Yes normal to inspection <Jocelyn Hastings PA - Last Filed: 12/20/22 12:58> Palpation (GI): Soft to palpation, nontender, no guarding and not rigid <Jocelyn Hastings PA - Last Filed: 12/20/22 12:58> General: Yes no CVA tenderness <Jocelyn Hastings PA - Last Filed: 12/20/22 12:58> Back/Spine/Pelvis Back: no CVA tenderness <Jocelyn Hastings PA - Last Filed: 12/20/22 12:58> Skin Rashes: no rashes <BEULAH Arteaga - Last Filed: 12/20/22 12:58> Wounds: no wounds <Jocelyn Hasitngs PA - Last Filed: 12/20/22 12:58> Neuro General: patient oriented x3, tone normal and no meningeal signs <BEULAH Arteaga - Last Filed: 12/20/22 12:58> Gait exam (Neuro): Normal gait present <BEULAH Arteaga - Last Filed: 12/20/22 12:58> Extrem General: Yes normal to inspection, Yes no pedal edema and Yes no calf tenderness <BEULAH Arteaga - Last Filed: 12/20/22 12:58> Course Course Course Narrative: RME performed by Sanna Jones PA-C. Patient is a 62 year old male presenting to the emergency department with chest pain. Labs, EKG, CXR ordered. Patient placed back in waiting room pending room availability and results. <BEULAH Jenkins Last Filed: 12/19/22 11:22> RME performed by Sanna Jones PA-C. Patient is a 62 year old male presenting to the emergency department with chest pain. Labs, EKG, CXR ordered. Patient placed back in waiting room pending room availability and results. -1437-- no leukocytosis. H&H stable. Magnesium low at 1.0 > likely from patient's Lasix. will give 2g IV repletion and repeat - Initial troponin 17.4 elevated priors >will obtain 3 hour repeat XR chest 2V IMPRESSION: 1.? No acute pulmonary findings. 2.? Enlarged cardiac silhouette 3.? Status post left upper lobectomy. -1616-- repeat magnesium 1.6 after repletion. Troponin equivocal, mi unlikely. Patient remains asymptomatic. Results discussed with patient including worrisome signs and symptoms and strict return precautions, and when to return to the emergency department. They verbalized understanding and feel safe for discharge at this time. <BEULAH Arteaga - Last Filed: 12/20/22 12:58> Medications Administered Discontinued Medications Generic Name Dose Route Start Last Admin Trade Name Freq PRN Reason Stop Dose Admin Magnesium Sulfate 2 gm in 50 mls @ 25 mls/hr 12/19/22 12:56 12/19/22 14:36 Magnesium Sulfate/H2o IV 12/19/22 14:55 Infused ONCE ONE Infusion Magnesium Oxide 400 mg 12/19/22 16:17 12/19/22 16:25 Magnesium Oxide 400 Mg Tablet PO 12/19/22 16:18 400 mg ONCE ONE Administration <BEULAH Jenkins - Last Filed: 12/19/22 11:22> Medications Administered Discontinued Medications Generic Name Dose Route Start Last Admin Trade Name Freq PRN Reason Stop Dose Admin Magnesium Sulfate 2 gm in 50 mls @ 25 mls/hr 12/19/22 12:56 12/19/22 14:36 Magnesium Sulfate/H2o IV 12/19/22 14:55 Infused ONCE ONE Infusion Magnesium Oxide 400 mg 12/19/22 16:17 12/19/22 16:25 Magnesium Oxide 400 Mg Tablet PO 12/19/22 16:18 400 mg ONCE ONE Administration <BEULAH Arteaga - Last Filed: 12/20/22 12:58> Medical Decision Making Medical Decision Making MDM Narrative: 62-year-old male with a past medical history carcinoid tumor s/p resection, cardiomyopathy, COPD, diabetes, gout, HLD, MARVA, presenting to the ED complaining of substernal chest pain around 06:00AM described as burning with associated SOB. On exam hypertensive, NAD, nontoxic appearing, asymptomatic at present, lungs CTA, abdomen soft/nontender, no pedal edema. Concern for ACS vs viral syndrome vs GERD. Lower suspicion for CHF or PE or DVT at this time. Plan: EKG, labs, CXR, COVID-19 testing Please refer to course for remaining clinical decision making, interpretation of labs/imaging results, and discussions with consultants and/or family members. <BEULAH Arteaga - Last Filed: 12/20/22 12:58> Differential Diagnosis Differential Diagnoses: The differential diagnosis associated with the presentation includes <BEULAH Arteaga - Last Filed: 12/20/22 12:58> as above <BEULAH Arteaga - Last Filed: 12/20/22 12:58> Admission/Observation Consideration of admission/observation: Escalation of care including admission/observation considered <BEULAH Arteaga - Last Filed: 12/20/22 12:58> Lab Data MDM Lab Attestation statement: I reviewed the patient's lab results. <BEULAH Arteaga - Last Filed: 12/20/22 12:58> Result Diagrams: 12/19/22 11:36 12/19/22 11:36 <BEULAH Jenkins - Last Filed: 12/19/22 11:22> Labs: Lab Results 12/19/22 12/19/22 12/19/22 Range/Units 11:36 11:36 11:36 WBC 9.8 (4.8-10.8) X10*3/uL RBC 4.87 (4.60-5.80) X10*6/uL Hgb 15.0 (14.0-18.0) g/dl Hct 45.1 (42.0-52.0) % MCV 92.6 (80.0-98.0) fL MCH 30.8 (27.0-33.0) pg MCHC 33.3 (31.0-36.0) g/dl RDW 13.7 (11.0-16.0) % Plt Count 178 (160-400) X10*3/uL MPV 10.0 (9.4-12.4) fL Immature Gran % (Auto) 0.3 (0.0-0.4) % Neut % (Auto) 68.0 (45-73) % Lymph % (Auto) 21.9 (20-40) % [place] % (Auto) 8.6 (2-11) % Eos % (Auto) 0.8 (0-4) % Baso % (Auto) 0.4 (0-2) % Lymph # (Auto) 2.1 (1.2-4.9) X10*3/uL [place] # (Auto) 0.8 (0.1-1.2) X10*3/uL Eos # (Auto) 0.1 (0.0-0.4) X10*3/uL Baso # (Auto) 0.0 (0.0-0.2) X10*3/uL Abs Immat Gran (auto) 0.03 (0.00-0.03) X10*3/uL Absolute Neuts (auto) 6.7 (2.0-8.3) x10*3/uL Absolute Nucleated RBC 0.000 (0.0-0.012) X10*3/uL Nucleated RBC % (auto) 0.0 (0.0-0.2) /100WBC Sodium 141 (135-145) mmol/L Potassium 3.8 (3.3-5.1) mmol/L Chloride 103 (96-108) mmol/L Carbon Dioxide 28 (22-29) mmol/L Anion Gap 14 (12-20) BUN 13 (9-16) mg/dL Creatinine 0.92 (0.5-1.4) mg/dL Estim Creat Clear Calc 78.4 Estimated GFR > 60 Random Glucose 133 H (60-115) mg/dL Calcium 9.1 D (8.4-10.2) mg/dL Magnesium 1.0 L* (1.6-2.6) mg/dL Total Bilirubin 1.4 H (0.0-1.0) mg/dL AST 16 (5-37) U/L ALT 13 (0-40) U/L Alkaline Phosphatase 52 (39-117) U/L Troponin I High Sens 17.4 (<3.5-35.0) ng/L B-Natriuretic Peptide (<100) pg/mL Total Protein 6.7 (6.5-8.0) g/dL Albumin 4.1 (3.5-5.0) g/dL COVID-19 (SKYLER) (Negative) COVID-19 Clin Com 12/19/22 12/19/22 12/19/22 Range/Units 11:36 11:36 15:13 WBC (4.8-10.8) X10*3/uL RBC (4.60-5.80) X10*6/uL Hgb (14.0-18.0) g/dl Hct (42.0-52.0) % MCV (80.0-98.0) fL MCH (27.0-33.0) pg MCHC (31.0-36.0) g/dl RDW (11.0-16.0) % Plt Count (160-400) X10*3/uL MPV (9.4-12.4) fL Immature Gran % (Auto) (0.0-0.4) % Neut % (Auto) (45-73) % Lymph % (Auto) (20-40) % [place] % (Auto) (2-11) % Eos % (Auto) (0-4) % Baso % (Auto) (0-2) % Lymph # (Auto) (1.2-4.9) X10*3/uL [place] # (Auto) (0.1-1.2) X10*3/uL Eos # (Auto) (0.0-0.4) X10*3/uL Baso # (Auto) (0.0-0.2) X10*3/uL Abs Immat Gran (auto) (0.00-0.03) X10*3/uL Absolute Neuts (auto) (2.0-8.3) x10*3/uL Absolute Nucleated RBC (0.0-0.012) X10*3/uL Nucleated RBC % (auto) (0.0-0.2) /100WBC Sodium (135-145) mmol/L Potassium (3.3-5.1) mmol/L Chloride (96-108) mmol/L Carbon Dioxide (22-29) mmol/L Anion Gap (12-20) BUN (9-16) mg/dL Creatinine (0.5-1.4) mg/dL Estim Creat Clear Calc Estimated GFR Random Glucose (60-115) mg/dL Calcium (8.4-10.2) mg/dL Magnesium (1.6-2.6) mg/dL Total Bilirubin (0.0-1.0) mg/dL AST (5-37) U/L ALT (0-40) U/L Alkaline Phosphatase (39-117) U/L Troponin I High Sens 16.1 (<3.5-35.0) ng/L B-Natriuretic Peptide 85 (<100) pg/mL Total Protein (6.5-8.0) g/dL Albumin (3.5-5.0) g/dL COVID-19 (SKYLER) Negative (Negative) COVID-19 Clin Com See Note 12/19/22 Range/Units 15:13 WBC (4.8-10.8) X10*3/uL RBC (4.60-5.80) X10*6/uL Hgb (14.0-18.0) g/dl Hct (42.0-52.0) % MCV (80.0-98.0) fL MCH (27.0-33.0) pg MCHC (31.0-36.0) g/dl RDW (11.0-16.0) % Plt Count (160-400) X10*3/uL MPV (9.4-12.4) fL Immature Gran % (Auto) (0.0-0.4) % Neut % (Auto) (45-73) % Lymph % (Auto) (20-40) % [place] % (Auto) (2-11) % Eos % (Auto) (0-4) % Baso % (Auto) (0-2) % Lymph # (Auto) (1.2-4.9) X10*3/uL [place] # (Auto) (0.1-1.2) X10*3/uL Eos # (Auto) (0.0-0.4) X10*3/uL Baso # (Auto) (0.0-0.2) X10*3/uL Abs Immat Gran (auto) (0.00-0.03) X10*3/uL Absolute Neuts (auto) (2.0-8.3) x10*3/uL Absolute Nucleated RBC (0.0-0.012) X10*3/uL Nucleated RBC % (auto) (0.0-0.2) /100WBC Sodium (135-145) mmol/L Potassium (3.3-5.1) mmol/L Chloride (96-108) mmol/L Carbon Dioxide (22-29) mmol/L Anion Gap (12-20) BUN (9-16) mg/dL Creatinine (0.5-1.4) mg/dL Estim Creat Clear Calc Estimated GFR Random Glucose (60-115) mg/dL Calcium (8.4-10.2) mg/dL Magnesium 1.6 (1.6-2.6) mg/dL Total Bilirubin (0.0-1.0) mg/dL AST (5-37) U/L ALT (0-40) U/L Alkaline Phosphatase (39-117) U/L Troponin I High Sens (<3.5-35.0) ng/L B-Natriuretic Peptide (<100) pg/mL Total Protein (6.5-8.0) g/dL Albumin (3.5-5.0) g/dL COVID-19 (SKYLER) (Negative) COVID-19 Clin Com <BEULAH Jenkins - Last Filed: 12/19/22 11:22> Lab Results 12/19/22 12/19/22 12/19/22 Range/Units 11:36 11:36 11:36 WBC 9.8 (4.8-10.8) X10*3/uL RBC 4.87 (4.60-5.80) X10*6/uL Hgb 15.0 (14.0-18.0) g/dl Hct 45.1 (42.0-52.0) % MCV 92.6 (80.0-98.0) fL MCH 30.8 (27.0-33.0) pg MCHC 33.3 (31.0-36.0) g/dl RDW 13.7 (11.0-16.0) % Plt Count 178 (160-400) X10*3/uL MPV 10.0 (9.4-12.4) fL Immature Gran % (Auto) 0.3 (0.0-0.4) % Neut % (Auto) 68.0 (45-73) % Lymph % (Auto) 21.9 (20-40) % [place] % (Auto) 8.6 (2-11) % Eos % (Auto) 0.8 (0-4) % Baso % (Auto) 0.4 (0-2) % Lymph # (Auto) 2.1 (1.2-4.9) X10*3/uL [place] # (Auto) 0.8 (0.1-1.2) X10*3/uL Eos # (Auto) 0.1 (0.0-0.4) X10*3/uL Baso # (Auto) 0.0 (0.0-0.2) X10*3/uL Abs Immat Gran (auto) 0.03 (0.00-0.03) X10*3/uL Absolute Neuts (auto) 6.7 (2.0-8.3) x10*3/uL Absolute Nucleated RBC 0.000 (0.0-0.012) X10*3/uL Nucleated RBC % (auto) 0.0 (0.0-0.2) /100WBC Sodium 141 (135-145) mmol/L Potassium 3.8 (3.3-5.1) mmol/L Chloride 103 (96-108) mmol/L Carbon Dioxide 28 (22-29) mmol/L Anion Gap 14 (12-20) BUN 13 (9-16) mg/dL Creatinine 0.92 (0.5-1.4) mg/dL Estim Creat Clear Calc 78.4 Estimated GFR > 60 Random Glucose 133 H (60-115) mg/dL Calcium 9.1 D (8.4-10.2) mg/dL Magnesium 1.0 L* (1.6-2.6) mg/dL Total Bilirubin 1.4 H (0.0-1.0) mg/dL AST 16 (5-37) U/L ALT 13 (0-40) U/L Alkaline Phosphatase 52 (39-117) U/L Troponin I High Sens 17.4 (<3.5-35.0) ng/L B-Natriuretic Peptide (<100) pg/mL Total Protein 6.7 (6.5-8.0) g/dL Albumin 4.1 (3.5-5.0) g/dL COVID-19 (SKYLER) (Negative) COVID-19 Clin Com 12/19/22 12/19/22 12/19/22 Range/Units 11:36 11:36 15:13 WBC (4.8-10.8) X10*3/uL RBC (4.60-5.80) X10*6/uL Hgb (14.0-18.0) g/dl Hct (42.0-52.0) % MCV (80.0-98.0) fL MCH (27.0-33.0) pg MCHC (31.0-36.0) g/dl RDW (11.0-16.0) % Plt Count (160-400) X10*3/uL MPV (9.4-12.4) fL Immature Gran % (Auto) (0.0-0.4) % Neut % (Auto) (45-73) % Lymph % (Auto) (20-40) % [place] % (Auto) (2-11) % Eos % (Auto) (0-4) % Baso % (Auto) (0-2) % Lymph # (Auto) (1.2-4.9) X10*3/uL [place] # (Auto) (0.1-1.2) X10*3/uL Eos # (Auto) (0.0-0.4) X10*3/uL Baso # (Auto) (0.0-0.2) X10*3/uL Abs Immat Gran (auto) (0.00-0.03) X10*3/uL Absolute Neuts (auto) (2.0-8.3) x10*3/uL Absolute Nucleated RBC (0.0-0.012) X10*3/uL Nucleated RBC % (auto) (0.0-0.2) /100WBC Sodium (135-145) mmol/L Potassium (3.3-5.1) mmol/L Chloride (96-108) mmol/L Carbon Dioxide (22-29) mmol/L Anion Gap (12-20) BUN (9-16) mg/dL Creatinine (0.5-1.4) mg/dL Estim Creat Clear Calc Estimated GFR Random Glucose (60-115) mg/dL Calcium (8.4-10.2) mg/dL Magnesium (1.6-2.6) mg/dL Total Bilirubin (0.0-1.0) mg/dL AST (5-37) U/L ALT (0-40) U/L Alkaline Phosphatase (39-117) U/L Troponin I High Sens 16.1 (<3.5-35.0) ng/L B-Natriuretic Peptide 85 (<100) pg/mL Total Protein (6.5-8.0) g/dL Albumin (3.5-5.0) g/dL COVID-19 (SKYLER) Negative (Negative) COVID-19 Clin Com See Note 12/19/22 Range/Units 15:13 WBC (4.8-10.8) X10*3/uL RBC (4.60-5.80) X10*6/uL Hgb (14.0-18.0) g/dl Hct (42.0-52.0) % MCV (80.0-98.0) fL MCH (27.0-33.0) pg MCHC (31.0-36.0) g/dl RDW (11.0-16.0) % Plt Count (160-400) X10*3/uL MPV (9.4-12.4) fL Immature Gran % (Auto) (0.0-0.4) % Neut % (Auto) (45-73) % Lymph % (Auto) (20-40) % [place] % (Auto) (2-11) % Eos % (Auto) (0-4) % Baso % (Auto) (0-2) % Lymph # (Auto) (1.2-4.9) X10*3/uL [place] # (Auto) (0.1-1.2) X10*3/uL Eos # (Auto) (0.0-0.4) X10*3/uL Baso # (Auto) (0.0-0.2) X10*3/uL Abs Immat Gran (auto) (0.00-0.03) X10*3/uL Absolute Neuts (auto) (2.0-8.3) x10*3/uL Absolute Nucleated RBC (0.0-0.012) X10*3/uL Nucleated RBC % (auto) (0.0-0.2) /100WBC Sodium (135-145) mmol/L Potassium (3.3-5.1) mmol/L Chloride (96-108) mmol/L Carbon Dioxide (22-29) mmol/L Anion Gap (12-20) BUN (9-16) mg/dL Creatinine (0.5-1.4) mg/dL Estim Creat Clear Calc Estimated GFR Random Glucose (60-115) mg/dL Calcium (8.4-10.2) mg/dL Magnesium 1.6 (1.6-2.6) mg/dL Total Bilirubin (0.0-1.0) mg/dL AST (5-37) U/L ALT (0-40) U/L Alkaline Phosphatase (39-117) U/L Troponin I High Sens (<3.5-35.0) ng/L B-Natriuretic Peptide (<100) pg/mL Total Protein (6.5-8.0) g/dL Albumin (3.5-5.0) g/dL COVID-19 ([facility]) (Negative) COVID-19 Clin Com <BEULAH Arteaga - Last Filed: 12/20/22 12:58> Independent Interpretation I performed an independent interpretation of an: EKG <BEULAH Arteaga - Last Filed: 12/20/22 12:58> Interpretation: EKG normal sinus rhythm with occasional PVCs. Rate 74. QTC 432. PACs no longer present when compared to prior EKG. No STEMI <BEULAH Arteaga - Last Filed: 12/20/22 12:58> Radiology Impression Discussion of test interpretation with radiology: I have reviewed the radiologist's reading. <BEULAH Arteaga Last Filed: 12/20/22 12:58> External Record Review External record reviewed: Office record, Outpatient record, Prior outpatient labs and Prior outpatient radiology <BEULAH Arteaga Last Filed: 12/20/22 12:58> Chronic Conditions Patient?s care impacted by: Diabetes and Hypertension <BEULAH Arteaga Last Filed: 12/20/22 12:58> Discharge Plan Discharge Clinical Impression: Chest pain, Hypomagnesemia <BEULAH Jenkins - Last Filed: 12/19/22 11:22> Patient Disposition: Home, Self-Care <BEULAH Jenkins - Last Filed: 12/19/22 11:22> Instructions: Chest Pain (ED), Hypomagnesemia (ED) <BEULAH Jenkins - Last Filed: 12/19/22 11:22> Additional Instructions: your heart enzymes were unremarkable today. you tested negative for COVID. Her magnesium was low. We repleted you. You should be taking magnesium supplements outpatient Have close follow-up with your doctor for repeat labs in 1 week. If symptoms persist or worsen, chest pain returns, become constant, shortness of breath or diarrhea return to the ED <BEULAH Jenkins - Last Filed: 12/19/22 11:22> Prescriptions: New magnesium oxide 400 mg (241.3 mg magnesium) tablet 400 mg PO BEDTIME Qty: 30 0RF No Action budesonide-formoterol [Symbicort] 160-4.5 mcg/actuation HFA aerosol inhaler 2 puff inhalation BID Qty: 10.2 11RF spironolactone 25 mg tablet 25 mg PO DAILY Qty: 90 3RF furosemide 20 mg tablet 20 mg PO DAILY Qty: 90 3RF carvedilol 12.5 mg tablet 12.5 mg PO BID Qty: 180 5RF Entresto 49-51 mg tablet 1 tab PO BID 90 Days Qty: 180 3RF albuterol sulfate 90 mcg/actuation HFA aerosol inhaler 1 inh inhalation QID PRN (Reason: Shortness Of Breath Or Wheezing) aspirin 81 mg tablet,delayed release (DR/EC) 1 tab PO DAILY methocarbamol 750 mg tablet 1 tab PO Q8H PRN (Reason: muscle spasm) naproxen 500 mg tablet 500 mg PO BID PRN (Reason: pain) Qty: 14 0RF cyclobenzaprine 10 mg tablet 10 mg PO Q8H PRN (Reason: Muscle spasm) Qty: 14 0RF lidocaine [Lidoderm] 5 % adhesive patch,medicated 1 patch topical DAILY Qty: 15 0RF Rx Instructions: leave on most painful area for up to 12 hrs. May be substituted erythromycin 5 mg/gram (0.5 %) ointment 0.5 inch ophthalmic (eye) TID 5 Days Qty: 3.5 0RF omega-3 fatty acids 1,000 mg capsule 1,000 mg PO BID tamsulosin 0.4 mg capsule 0.4 mg PO DAILY atorvastatin [Lipitor] 80 mg tablet 80 mg PO DAILY metformin 500 mg tablet 500 mg PO DAILY ipratropium bromide 0.03 % spray,non-aerosol 2 spray intranasal TID ergocalciferol (vitamin D2) 1,250 mcg (50,000 unit) capsule 1,250 mcg PO QWEEK <BEULAH Jenkins - Last Filed: 12/19/22 11:22> Referrals: Farrah Jackson DO [Primary Care Provider] - 3 days <BEULAH Jenkins - Last Filed: 12/19/22 11:22> Interventions: ED Discharge Assessment Last Done: 12/19/22 16:26 <BEULAH Jenkins - Last Filed: 12/19/22 11:22> Discharge Date/Time: 12/19/22 16:26 <BEULAH Jenkins - Last Filed: 12/19/22 11:22>
[2022-12-19 11:34] VITALS: BP 144/102; PULSE 67; RESP 16; TEMP 36.7; O2SAT 99; BMI 26.6
[2022-12-19 11:41] LABS: MANUAL DIFF FLAG NO
[2022-12-19 11:43] LABS: Basophils Percent Auto 0.4 % (0-2); Eosinophils Absolute Auto 0.1 X10*3/uL (0.0-0.4); Eosinophils Percent Auto 0.8 % (0-4); Hematocrit 45.1 % (42.0-52.0); Imm Gran Abs Auto 0.03 X10*3/uL (0.00-0.03); Imm Gran Pct Auto 0.3 % (0.0-0.4); Lymphocytes Absolute Auto 2.1 X10*3/uL (1.2-4.9); Lymphocytes Percent Auto 21.9 % (20-40); Mean Corpuscular HGB Conc 33.3 g/dl (31.0-36.0); Mean Corpuscular Hemoglobin 30.8 pg (27.0-33.0); Mean Corpuscular Volume 92.6 fL (80.0-98.0); Monocytes Absolute Auto 0.8 X10*3/uL (0.1-1.2); Monocytes Percent Auto 8.6 % (2-11); Neutrophils Absolute Auto 6.7 x10*3/uL (2.0-8.3); Platelet Count 178 X10*3/uL (160-400); Red Blood Count 4.87 X10*6/uL (4.60-5.80); Red Cell Distribution Width 13.7 % (11.0-16.0); White Blood Count 9.8 X10*3/uL (4.8-10.8)
[2022-12-19 11:55] LABS: COVID-19 Test Negative (Negative); IDNOW Serial# 16C4AD1C
[2022-12-19 12:12] LABS: B Type Natriuretic Peptide 85 pg/mL (<100)
[2022-12-19 12:19] LABS: Troponin-I High Sensitivity 17.4 ng/L (<3.5-35.0)
[2022-12-19 12:29] LABS: Alanine Aminotransferase 13 U/L (0-40); Albumin Level 4.1 g/dL (3.5-5.0); Alkaline Phosphatase 52 U/L (39-117); Anion Gap 14 (12-20); Aspartate Amino Transferase 16 U/L (5-37); Bilirubin Total 1.4 mg/dL (0.0-1.0); Blood Urea Nitrogen 13 mg/dL (9-16); Calcium 9.1 mg/dL (8.4-10.2); Carbon Dioxide 28 mmol/L (22-29); Chloride 103 mmol/L (96-108); Creatinine Clr Calc Pharmacy 78.4; Estimated Glomerular Filt Rate > 60; Glucose Random 133 mg/dL (60-115); Potassium 3.8 mmol/L (3.3-5.1); Sodium 141 mmol/L (135-145); Total Protein 6.7 g/dL (6.5-8.0)
[2022-12-19] MEDS: Magnesium Sulfate/H2O 2 GM/50 ML PIGGYBACK IV (13:24)
[2022-12-19 16:05] LABS: Magnesium 1.6 mg/dL (1.6-2.6)
[2022-12-19 16:12] LABS: Troponin-I High Sensitivity 16.1 ng/L (<3.5-35.0)
[2022-12-19] MEDS: Magnesium Oxide 400 MG TABLET PO (16:25)
== END 2022-12-19 16:26 | disposition home or self-care (01) ==
PROVIDERS: Physician Assistant; Physician Assistant Medical; Emergency Provider Emergency Medicine; PCP Family Medicine
DX: R07.9 Chest pain, unspecified (principal); E83.42 Hypomagnesemia; R06.02 Shortness of breath; Z20.822 Contact with and (suspected) exposure to COVID-19; E11.9 Type 2 diabetes mellitus without complications; I10 Essential (primary) hypertension; E78.5 Hyperlipidemia, unspecified; Z79.02 Long term (current) use of antithrombotics/antiplatelets; Z79.84 Long term (current) use of oral hypoglycemic drugs; Z79.82 Long term (current) use of aspirin; Z79.899 Other long term (current) drug therapy
CPT/HCPCS: 36415; 71046; 80053; 83735; 83880; 84484; 85025; 87635; 93005; 96365; 99284; J3475

== ENCOUNTER 2023-05-07 10:42 | Outpatient (AMB) | payer MEDICAID, SELFPAY ==
[2023-05-07 11:20] VITALS: BP 138/82; PULSE 80; BMI 25.8
--- NOTE | 2023-05-07 11:20 | A.OFFVIS_ITS ---
Intake Vital Signs 05/07/23 11:20 Height 5 ft 7 in Weight 165 lb BMI 25.8 BP 138/82 Blood Pressure Location Lt brachial Position Sitting Pulse 80 Intake Visit Reasons: subcutaneous nodule left upper back Intake Note: Patient here for growth on back. Has been present for many years. States is has been enlarging and gets itchy. Medical Physics Researcher Required: No Accompanied by: Self / Same As Patient Allergies No Known Allergies Allergy (Mild, Verified 05/07/23 11:22) NONE HPI HPI Comments History of Present Illness Details Patient presents with for evaluation of left mid back mass. He has had this indeterminate time. It is increasing in size, becoming more symptomatic. He wished to have removed. Chart was reviewed and patient evaluated. Most noteworthy for a left lung lobectomy and bring Bhakta approximately 10 years ago. [facility] Medical History Rhtzh-9-djwuuqjklmq deficiency Carcinoid tumor Cardiomyopathy COPD (chronic obstructive pulmonary disease) Diabetes Encounter for discussion regarding implantable cardioverter-defibrillator Essential hypertension Gout High cholesterol MARVA (obstructive sleep apnea) Prostate enlargement PVC (premature ventricular contraction) Surgical History History of bronchoscopy History of lobectomy of lung Hx of colonoscopy Family History Son No problems noted. Father No problems noted. 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 Physical Exam Vital Signs: Last Vital Signs Pulse 80 05/07/23 11:20 BP 138/82 05/07/23 11:20 BMI result Body Mass Index 25.8 Chest Other: Chest breath sounds bilaterally, HS 1 in 2 Left thorascopic surgery scars well healed GI Other: Abdomen soft, benign Back/Spine/Pelvis Other: Left mid back demonstrates approximately 7 x 4 cm mass consistent with the deeply situated lipoma Assessment & Plan Assessment & Plan (1) Lipoma: Code(s): D17.9 - Benign lipomatous neoplasm, unspecified Plan Risks, benefits, alternatives of lipoma excision reviewed with the patient and his and included but not limited to bleeding, infection, recurrence, numbness, pain, scarring, wound dehiscence, seroma formation and they wish to proceed. All questions were answered. Arrangements will be made for this. Coding Level of Care Code New Pt Level 4 (43040) Diagnoses Lipoma D17.9
== END 2023-05-07 11:27 | disposition home or self-care (01) ==
PROVIDERS: PCP Family Medicine; Referring Provider Family Medicine; Visit Provider Surgery
DX: D17.9 Benign lipomatous neoplasm, unspecified (principal)
CPT/HCPCS: 99204

== ENCOUNTER → 2023-05-07 10:42 | Outpatient (BNVA) | payer MEDICAID, SELFPAY | PROVIDERS: PCP Family Medicine; Referring Provider Family Medicine; Visit Provider Surgery | DX: D17.9 Benign lipomatous neoplasm, unspecified (principal) | CPT/HCPCS: 99202 ==

== ENCOUNTER → 2023-05-15 23:59 | Outpatient (BNV) | payer MEDICAID, SELFPAY ==
--- NOTE | 2023-05-27 21:13 | MHC.OFFVIS ---
Intake Intake Visit Reasons: Remote HF Monitoring- [employer] Allergies No Known Allergies Allergy (Mild, Verified 05/25/23 06:57) NONE PFSH Medical History Klxte-[id number]-[id number] deficiency Carcinoid tumor Cardiomyopathy COPD (chronic obstructive pulmonary disease) Diabetes Encounter for discussion regarding implantable cardioverter-defibrillator Essential hypertension Gout High cholesterol MARVA (obstructive sleep apnea) Pacemaker Prostate enlargement PVC (premature ventricular contraction) Surgical History History of bronchoscopy History of lobectomy of lung History of prostate surgery Hx of colonoscopy Family History Son No problems noted. Father No problems noted. 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 [id number] Cardiac Device Interrogation, cardio physiologic monitor Procedure code (CPT) selection complete Assessment & Plan Assessment & Plan (1) NICM (nonischemic cardiomyopathy): Code(s): I42.8 - Other cardiomyopathies Medications: Discontinued carvedilol 12.5 mg PO BID 180 tabs 5RF Coding Level of Care Code Procedure Only Diagnoses NICM (nonischemic cardiomyopathy) I42.8 CPT Codes Cardiac Device Check - Cardiac Device 15: [id number] Cardiac Device Interrogation, cardio physiologic monitor ([id number])
== END ==
PROVIDERS: PCP Family Medicine; Visit Provider Internal Medicine
DX: I42.8 Other cardiomyopathies (principal); Z95.810 Presence of automatic (implantable) cardiac defibrillator
CPT/HCPCS: 93297

== ENCOUNTER 2023-05-18 12:23 | Outpatient (AMB) | payer MEDICAID, SELFPAY ==
--- NOTE | 2023-05-18 12:47 | MHC.OFFVIS ---
Intake Vital Signs 05/18/23 12:48 Height 5 ft 7 in Weight 165 lb 5.547 oz BMI 25.9 BP 102/72 Blood Pressure Location Lt brachial Position Sitting Pulse 76 Intake Visit Reasons: 6 mth f/up Intake Note: 6 month follow up Community Health Coordinator Required: No Accompanied by: Self / Same As Patient Allergies No Known Allergies Allergy (Mild, Verified 05/18/23 12:49) NONE Medication List - Last Reconciled 05/18/23 by Tomer Carolina MD albuterol sulfate 90 mcg/actuation 1 inh inhalation QID PRN aspirin 1 tab PO DAILY atorvastatin (Lipitor) 80 mg PO DAILY budesonide-formoterol 160-4.5 mcg/actuation (Symbicort) 2 puffs inhalation BID carvedilol 12.5 mg PO BID cyclobenzaprine 10 mg PO Q8H PRN ergocalciferol (vitamin D2) 1,250 mcg PO QWEEK erythromycin 0.5 inches ophthalmic (eye) TID 5 days furosemide 20 mg PO DAILY ipratropium bromide 2 sprays intranasal TID lidocaine 5% (Lidoderm) 1 patch topical DAILY magnesium oxide 400 mg PO BEDTIME metformin 500 mg PO DAILY methocarbamol 1 tab PO Q8H PRN naproxen 500 mg PO BID PRN omega-3 fatty acids 1,000 mg PO BID sacubitril-valsartan 49-51 mg (Entresto) 1 tab PO BID 90 days spironolactone 25 mg PO DAILY tamsulosin 0.4 mg PO DAILY HPI HPI Comments History of Present Illness Details Sonny returns for follow-up regarding nonischemic cardiomyopathy. He underwent prophylactic ICD for primary prevention. Otherwise, has a history of frequent PVCs. Multiple other risk factors including diabetes, hypertension, dyslipidemia but cardiac catheterization does not show any significant coronary disease. Overall, he is doing good. No cardiac complaints. [facility] Medical History Xogpl-[id number] deficiency Carcinoid tumor Cardiomyopathy COPD (chronic obstructive pulmonary disease) Diabetes Encounter for discussion regarding implantable cardioverter-defibrillator Essential hypertension Gout High cholesterol MARVA (obstructive sleep apnea) Prostate enlargement PVC (premature ventricular contraction) Surgical History History of bronchoscopy History of lobectomy of lung Hx of colonoscopy Family History Son No problems noted. Father No problems noted. 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 Review of Systems Const Denies weakness ENT Denies dizziness Card Denies chest pain, Denies chest pain with activity, Denies syncope, Denies rapid heart rate, Denies pedal edema, Denies edema, Denies leg edema, Denies lightheadedness, Denies palpitations, Denies dyspnea, Denies dyspnea on exertion and Denies orthopnea Resp Denies cough, Denies dyspnea and Denies dyspnea on exertion GI Denies hematochezia and Denies change in stool character Musc Denies abnormal gait, Denies muscle cramps, Denies muscle weakness, Denies numbness, Denies radiating pain into limb and Denies tingling Neuro Denies abnormal gait, Denies dizziness, Denies syncope, Denies numbness, Denies tingling and Denies weakness Endo Denies palpitations Physical Exam Vital Signs: Last Vital Signs Pulse 76 05/18/23 12:48 BP 102/72 05/18/23 12:48 BMI result Body Mass Index 25.9 Const General: comfortable and no acute distress Orientation/consciousness: patient oriented x3 HEENT Other: Unremarkable Head: Yes normal to inspection Neck Neck: Yes normal visual inspection Chest Chest palpation & inspection: normal inspection of the chest Resp Auscultation: clear to auscultation bilaterally Cardio Palpation: normal PMI Heart sounds: S1 normal heart sound present, S2 normal heart sound present, no gallops, no murmurs and no rubs GI Palpation (GI): Soft to palpation Back/Spine/Pelvis Other: unremarkable Skin General skin exam: no rashes or lesions noted Neuro General: patient oriented x3 Extrem General: Yes normal to inspection Psych Mental Status: mental status grossly normal Assessment & Plan Assessment & Plan (1) NICM (nonischemic cardiomyopathy): Code(s): I42.8 - Other cardiomyopathies Plan: Most recent echocardiogram with LVEF of 20 25%. Cardiac catheterization with mild luminal irregularities in the LAD but otherwise unremarkable coronaries. LVEDP was also normal. Could be either from hypertension or from alcoholic cardiomyopathy. However, no alcohol excess in the last few years. Continue Coreg/Entresto/spironolactone. Will recommend Farxiga to PCP. Low-dose diuretics. Can check labs. Request given. (2) PVC (premature ventricular contraction): Code(s): I49.3 - Ventricular premature depolarization Plan: In the loss total, PVC burden of 5.3%. Short runs noted. Nothing sustained. Already has ICD in place. (3) Essential hypertension: Code(s): I10 - Essential (primary) hypertension Plan: Stable. No changes. (4) Diabetes: Code(s): E11.9 - Type 2 diabetes mellitus without complications Plan: On metformin. As above, can possibly was Farxiga due to congestive heart failure and current recommendations. Will make recommendation to PCP. In that case, may have to stop order decrease metformin. Orders: Orders Basic Metabolic Panel Today I42.8 - Other cardiomyopathies, I50.22 - Chronic systolic (congestive) heart failure B Type Natriuretic Peptide Today I42.8 - Other cardiomyopathies, I50.9 - Heart failure, unspecified Coding Level of Care Code Est Pt Level 4 (78670) Diagnoses NICM (nonischemic cardiomyopathy) I42.8 PVC (premature ventricular contraction) I49.3 Essential hypertension I10 Diabetes E11.9
[2023-05-18 12:48] VITALS: BP 102/72; PULSE 76; BMI 25.9
== END 2023-05-18 13:01 | disposition home or self-care (01) ==
PROVIDERS: Visit Provider Internal Medicine
DX: I42.8 Other cardiomyopathies (principal); I49.3 Ventricular premature depolarization; I10 Essential (primary) hypertension; E11.9 Type 2 diabetes mellitus without complications
CPT/HCPCS: 99214

== ENCOUNTER → 2023-05-18 12:23 | Outpatient (BNVA) | payer MEDICAID, SELFPAY | PROVIDERS: Visit Provider Internal Medicine | DX: I50.22 Chronic systolic (congestive) heart failure (principal); I42.8 Other cardiomyopathies; I49.3 Ventricular premature depolarization; I11.0 Hypertensive heart disease with heart failure; E11.9 Type 2 diabetes mellitus without complications; Z98.890 Other specified postprocedural states | CPT/HCPCS: 99212 ==

== ENCOUNTER 2023-05-21 10:00 | Outpatient (RCR) | payer MEDICAID, SELFPAY ==
[2023-05-13 12:56] VITALS: BP 146/96; PULSE 70
== END 2023-06-10 14:31 | disposition home or self-care (01) ==
LOC: HO.PT 10:00
PROVIDERS: PCP Family Medicine; Visit Provider Family Medicine
DX: M54.2 Cervicalgia (principal)
CPT/HCPCS: 97110; 97161

== ENCOUNTER 2023-05-25 06:11 | Day surgery (SDC) | payer MEDICAID, SELFPAY ==
[2023-05-20 13:13] VITALS: BP 127/85; PULSE 71; RESP 16; O2SAT 99; BMI 25.8
--- NOTE | 2023-05-20 13:40 | P.CONAN_ITS ---
Documented by User: Abena Mckeon NP 05/20/23 13:51 HPI - Anesthesia Eval Consult details Narrative: 62yo M for Left Excision Large Lipoma mid-back Hx of left lobectomy - 2010 - non-malignant ICD in situ No recent illness No CP/SOB with >4mets FBS ~ 100-120 MARVA - occassional CPAP PMFSH Active Problems Active Problems: All Active Problems (Updated 12/20/22 @ 00:01 by Background Daemon) NICM (nonischemic cardiomyopathy) (Acute) Type 2 diabetes mellitus with unspecified complications (Acute) Other and unspecified hyperlipidemia (Acute) S/P ICD (internal cardiac defibrillator) procedure (Acute) Tachycardia, unspecified (Acute) Lipoma (Acute) Diabetes (Acute) COPD (chronic obstructive pulmonary disease) (Acute) Essential hypertension (Acute) PVC (premature ventricular contraction) (Acute) MARVA (obstructive sleep apnea) (Acute) Carcinoid tumor (Acute) Past Medical History Medical History Fudyd-9-[id number] deficiency Carcinoid tumor Cardiomyopathy COPD (chronic obstructive pulmonary disease) Diabetes Encounter for discussion regarding implantable cardioverter-defibrillator Essential hypertension Gout High cholesterol MARVA (obstructive sleep apnea) Pacemaker Prostate enlargement PVC (premature ventricular contraction) Family History Family History Son No problems noted. Father No problems noted. Family history of problems with anesthesia: No Surgical History Surgical History History of bronchoscopy History of lobectomy of lung History of prostate surgery Hx of colonoscopy History of Problems with Anesthesia: No Social History Social History Household Members: Spouse Household Members Other:: Alexsandra Housing: House Are you a primary memory care program resident to a significant other at home: No Do you presently have visiting nurse or other home services: No Alcohol intake: never Patient Tobacco Use Status: Never used Tobacco Second Hand Smoke Exposure: No Use of substances other than those prescribed or required for medical reasons: No Have you been hit, kicked, punched, or otherwise hurt by someone within the past year? 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 Meds Allergies Allergy/AdvReac Type Severity Reaction Status Date / Time No Known Allergies Allergy Mild NONE Verified 05/25/23 06:57 Home Medications Medication Instructions Recorded Confirmed Last Taken Type atorvastatin 80 mg tablet (Lipitor) 80 mg PO DAILY 08/20/20 05/25/23 05/13/21 07:30 History metformin 500 mg tablet 1,000 mg PO BID 08/20/20 05/25/23 05/24/23 History omega-3 fatty acids 1,000 mg 1,000 mg PO BID 08/20/20 05/25/23 05/24/23 History capsule albuterol sulfate 90 mcg/actuation 1 inh inhalation QID PRN Shortness 11/22/20 05/25/23 Unknown History aerosol inhaler Of Breath Or Wheezing aspirin 81 mg tablet,delayed 1 tab PO DAILY 05/06/21 05/25/23 05/24/23 History release carvedilol 12.5 mg tablet 18.75 mg PO BID 05/20/23 05/25/23 05/25/23 History multivitamin 1 tab PO DAILY 05/20/23 05/25/23 Unknown History sertraline 25 mg tablet 25 mg PO DAILY 05/20/23 05/25/23 Unknown History Exam Exam Date and Time: May 20, 2023 1340 Height,Weight and Vital Signs: Height 5 ft 7 in Weight 74.843 kg Last Vital Signs Pulse 71 05/20/23 13:13 Resp 16 05/20/23 13:13 BP 127/85 05/20/23 13:13 Pulse Ox 99 05/20/23 13:13 O2 Del Method Room Air 05/20/23 13:13 Pertinent Lab Results Pertinent Lab Results: Laboratory Tests 12/19/22 12/19/22 11:36 11:36 WBC 9.8 Hgb 15.0 Hct 45.1 Plt Count 178 Sodium 141 Potassium 3.8 Chloride 103 Carbon Dioxide 28 BUN 13 Creatinine 0.92 Narrative Narrative: HF Monitor 04/2023 Cardiac Device Check Details: Date of service- 04/15/2023;?based on impedance data and physiological variables, there is no evidence of worsening congestive heart failure. Patient activity 3hrs/day. ICD Interr 04/2023 Cardiac Device Check Details: Date of service 04/15/2023;?Battery life 10 years; normal lead parameters; no treated VT/VF;? normal ICD function. EKG 11/2022 Vent. Rate : 074 BPM ? ? Atrial Rate : 074 BPM ?? P-R Int : 128 ms? QRS Dur : 092 ms ? ? QT Int : 390 ms ? ? ? P-R-T Axes : 052 -16 087 degrees ?? QTc Int : 432 ms ? Sinus rhythm with occasional Premature ventricular complexes Minimal voltage criteria for LVH, may be normal variant ( R in aVL ) Nonspecific ST and T wave abnormality Abnormal ECG When compared with ECG of 08-DEC-2021 07:39, Premature atrial complexes are no longer Present ECHO 10/2022 Conclusions: - The left ventricular systolic function is severely decreased.? The visually estimated ejection fraction is between 20-25%.? ? ? - No obvious valvular pathology seen on this study.? ? ? Airway Mallampati Class: I TM Dist: >3cm Neck ROM: Full Loose/Missing/Broken Teeth: No Heart: RRR Lungs: CTAB Assessment and Plan Assessment Anesthesia Assessment: Anesthesia Plan Discussed and PAT Visit Final Anesthetic Review Family History of Problems with Anesthesia: No History of Problems with Anesthesia: No Documented by User: Yuliet Barrera MD 05/25/23 08:00 [facility] Past Medical History Medical History Ewhba-3-lwzujyvyxft deficiency Carcinoid tumor Cardiomyopathy COPD (chronic obstructive pulmonary disease) Diabetes Encounter for discussion regarding implantable cardioverter-defibrillator Essential hypertension Gout High cholesterol MARVA (obstructive sleep apnea) Pacemaker Prostate enlargement PVC (premature ventricular contraction) Family History Family History Son No problems noted. Father No problems noted. Surgical History Surgical History History of bronchoscopy History of lobectomy of lung History of prostate surgery Hx of colonoscopy Social History Social History Household Members: Spouse Household Members Other:: Alexsandra Housing: House Are you a primary memory care program resident to a significant other at home: No Do you presently have visiting nurse or other home services: No Alcohol intake: never Patient Tobacco Use Status: Never used Tobacco Second Hand Smoke Exposure: No Use of substances other than those prescribed or required for medical reasons: No Have you been hit, kicked, punched, or otherwise hurt by someone within the past year? 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 Meds Allergies Allergy/AdvReac Type Severity Reaction Status Date / Time No Known Allergies Allergy Mild NONE Verified 05/25/23 06:57 Home Medications Medication Instructions Recorded Confirmed Last Taken Type atorvastatin 80 mg tablet (Lipitor) 80 mg PO DAILY 08/20/20 05/25/23 05/13/21 07:30 History metformin 500 mg tablet 1,000 mg PO BID 08/20/20 05/25/23 05/24/23 History omega-3 fatty acids 1,000 mg 1,000 mg PO BID 08/20/20 05/25/23 05/24/23 History capsule albuterol sulfate 90 mcg/actuation 1 inh inhalation QID PRN Shortness 11/22/20 05/25/23 Unknown History aerosol inhaler Of Breath Or Wheezing aspirin 81 mg tablet,delayed 1 tab PO DAILY 05/06/21 05/25/23 05/24/23 History release carvedilol 12.5 mg tablet 18.75 mg PO BID 05/20/23 05/25/23 05/25/23 History multivitamin 1 tab PO DAILY 05/20/23 05/25/23 Unknown History sertraline 25 mg tablet 25 mg PO DAILY 05/20/23 05/25/23 Unknown History Exam Airway Mallampati Class: III Assessment and Plan Final Anesthetic Review NPO: Yes ASA Class: IV Final Preanesthetic Review: Meds/Allgs Chart Reviewed, Consent Obtained/Reviewed and Anes Risks/Benef Reviewed Patient Risk: High Procedure Risk: Low Anesthetic Plan Anesthetic Plan: MAC: Disposition: Standard PACU
--- NOTE | 2023-05-24 12:48 | MHC.SHP ---
Pre-Procedural Eval Section A Date of Service: 05/24/23 The patient is an INPATIENT: No Changes since office visit: No Cold of Flu in the past 2 weeks, No New Medical Problems, No Changes in Medication and No Patient answered all questions The History & Physical has been completed within 30 days and I have reviewed it.: Yes Section B Chief Complaint: Benign lipomatous neoplasm, unspecified Allergies: Allergies Allergy/AdvReac Type Severity Reaction Status Date / Time No Known Allergies Allergy Mild NONE Verified 05/18/23 12:49 Plan I have reviewed the history and physical and performed a pertinent physical examination on my patient. No changes have occurred unless specified. Time Spent With Patient Time: Total time managing care of this patient today ____ minutes.
[2023-05-25 07:13] VITALS: BP 144/87; PULSE 70; RESP 16; TEMP 36.4; O2SAT 99
[2023-05-25 07:13] LABS: Glucose, Whole Blood 124 mg/dL (60-115)
[2023-05-25] MEDS: Lactated Ringers 1,000 ML 100 ML IVCONT (07:54)
--- NOTE | 2023-05-25 08:46 | P.OP_ITS ---
Operative Note Operative Note Date of Service: 05/25/23 Narrative: Preoperative diagnosis: [] Large mid left back lipoma Postop diagnosis: [] Same Procedure [] excision back lipoma Surgeon: [] Keo President And Chief Operating Officer: [] juan pablo Barcenas Type of Anesthesia: [] MAC Indication for surgery: [] Specimen measured approximately 6 x 5 cm consistent with a deep left mid back lipoma Findings: [] Patient brought to the operating room, placed on operative table in supine position, after an adequate level of MAC anesthesia was induced, patient was placed in the right lateral decubitus position. Back was prepped and draped in usual sterile fashion. A transverse incision was made over the lipoma in question after infiltration with 0.5% Marcaine 1% lidocaine. This carried down through skin, subcutaneous tissue, were large lipoma was identified and circumferentially dissected down to the fascia of the muscle and excised using Bovie. Dimensions were as noted above. Specimen was sent to pathology. Wound was irrigated, secured hemostasis, and closed using interrupted inverted dermal 3-0 Vicryl sutures followed by Steri-Strips and sterile dressings. Sponge, needle, and instrument counts were reported to be correct. Patient tolerated the procedure well emerged from anesthesia stable condition. EBL minimal
[2023-05-25 08:55] VITALS: BP 98/61; PULSE 76; RESP 16; TEMP 36.5; O2SAT 99
[2023-05-25 09:11] VITALS: BP 111/71; PULSE 84; RESP 16; O2SAT 97
[2023-05-25 09:26] VITALS: BP 101/71; PULSE 73; RESP 16; TEMP 36.5; O2SAT 98
== END 2023-05-25 09:45 | disposition home or self-care (01) ==
PROVIDERS: PCP Family Medicine; Visit Provider Surgery
PROC: (CPT 21931; principal; 2023-05-25 08:40)
DX: D17.1 Benign lipomatous neoplasm of skin and subcutaneous tissue of trunk (principal); J44.9 Chronic obstructive pulmonary disease, unspecified; I10 Essential (primary) hypertension; E11.9 Type 2 diabetes mellitus without complications; I42.8 Other cardiomyopathies; Z95.810 Presence of automatic (implantable) cardiac defibrillator; E88.01 Alpha-1-antitrypsin deficiency; G47.33 Obstructive sleep apnea (adult) (pediatric); N40.0 Benign prostatic hyperplasia without lower urinary tract symptoms; Z90.2 Acquired absence of lung [part of]; Z79.82 Long term (current) use of aspirin; Z79.84 Long term (current) use of oral hypoglycemic drugs; Z79.899 Other long term (current) drug therapy; Z98.890 Other specified postprocedural states
CPT/HCPCS: 21931; 82947; 88304; J0690; J2250; J2795; J3010

== ENCOUNTER → 2023-05-25 06:11 | Outpatient (BNV) | payer MEDICAID, SELFPAY | PROVIDERS: PCP Family Medicine; Visit Provider Surgery | DX: D21.6 Benign neoplasm of connective and other soft tissue of trunk, unspecified (principal) | CPT/HCPCS: 21933 ==

== ENCOUNTER 2023-06-01 10:24 | Outpatient (AMB) | payer MEDICAID, SELFPAY ==
--- NOTE | 2023-06-01 10:25 | A.OFFVIS_ITS ---
Intake Vital Signs 06/01/23 10:31 Weight 167 lb BP 120/80 Blood Pressure Location Rt brachial Position Sitting Pulse 83 Intake Visit Reasons: S/P excision Left mid-back Lg. lipoma Intake Note: This patient presents for a post-op assessment stautus post exicison of left mid back large lipoma. Patient denies complaints at this time. Barrelhead Inspector Required: No Accompanied by: Self / Same As Patient Allergies No Known Allergies Allergy (Mild, Verified 06/01/23 10:31) NONE HPI HPI Comments History of Present Illness Details Patient presents for follow-up. He has no wound issues or complaints. Pathology is benign. [facility] Medical History Ihucs-2-kwisnwwvdyt deficiency Carcinoid tumor Cardiomyopathy COPD (chronic obstructive pulmonary disease) Diabetes Encounter for discussion regarding implantable cardioverter-defibrillator Essential hypertension Gout High cholesterol MARVA (obstructive sleep apnea) Pacemaker Prostate enlargement PVC (premature ventricular contraction) Surgical History (Updated 06/01/23 @ 10:34 by ALE Harrington) History of bronchoscopy History of lobectomy of lung History of prostate surgery History of surgical procedure (~2022) Hx of colonoscopy Family History Son No problems noted. Father No problems noted. 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 There is not unexpectedly a seroma. Under sterile technique, this for aspirated approximately 10 cc were retrieved. Dressing was applied. Patient tolerated this well. Assessment & Plan Assessment & Plan (1) Lipoma: Code(s): D17.9 - Benign lipomatous neoplasm, unspecified Plan Patient has been given local instructions including avoiding strenuous activities for next 2 weeks time. He will otherwise follow up p.r.n.. Medications: Discontinued carvedilol 12.5 mg PO BID 180 tabs 5RF Coding Level of Care Code Global (92133) Diagnoses Lipoma D17.9
[2023-06-01 10:31] VITALS: BP 120/80; PULSE 83
== END 2023-06-01 10:37 | disposition home or self-care (01) ==
PROVIDERS: PCP Family Medicine; Visit Provider Surgery
DX: D17.9 Benign lipomatous neoplasm, unspecified (principal)
CPT/HCPCS: 99024

== ENCOUNTER → 2023-06-01 10:24 | Outpatient (BNVA) | payer MEDICAID, SELFPAY | PROVIDERS: PCP Family Medicine; Visit Provider Surgery ==

== ENCOUNTER → 2023-06-15 23:59 | Outpatient (BNV) | payer MEDICAID, SELFPAY ==
--- NOTE | 2023-06-16 14:19 | A.OFFVIS_ITS ---
Intake Intake Visit Reasons: Remote HF Monitoring- [employer] Allergies No Known Allergies Allergy (Mild, Verified 06/01/23 10:31) NONE PFSH Medical History Esbop-9-ifoyfanlymd deficiency Carcinoid tumor Cardiomyopathy COPD (chronic obstructive pulmonary disease) Diabetes Encounter for discussion regarding implantable cardioverter-defibrillator Essential hypertension Gout High cholesterol MARVA (obstructive sleep apnea) Pacemaker Prostate enlargement PVC (premature ventricular contraction) Surgical History (Updated 06/01/23 @ 10:34 by ALE Harrington) History of bronchoscopy History of lobectomy of lung History of prostate surgery History of surgical procedure (~2022) Hx of colonoscopy Family History Son No problems noted. Father No problems noted. 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 Patient activity about 3 hours a day. [id number] Cardiac Device Interrogation, cardio physiologic monitor Procedure code (CPT) selection complete Assessment & Plan Assessment & Plan (1) NICM (nonischemic cardiomyopathy): Code(s): I42.8 - Other cardiomyopathies Medications: Discontinued carvedilol 12.5 mg PO BID 180 tabs 5RF Coding Level of Care Code Procedure Only Diagnoses NICM (nonischemic cardiomyopathy) I42.8 CPT Codes Cardiac Device Check - Cardiac Device 15: [id number] Cardiac Device Interrogation, cardio physiologic monitor ([id number])
== END ==
PROVIDERS: PCP Family Medicine; Visit Provider Internal Medicine
DX: I42.8 Other cardiomyopathies (principal); Z95.810 Presence of automatic (implantable) cardiac defibrillator
CPT/HCPCS: 93297

== ENCOUNTER → 2023-07-16 23:59 | Outpatient (BNV) | payer MEDICAID, SELFPAY ==
--- NOTE | 2023-07-22 15:44 | MHC.OFFVIS ---
Intake Intake Visit Reasons: Remote ICD check- [employer] Allergies No Known Allergies Allergy (Mild, Verified 06/01/23 10:31) NONE PFSH Medical History Pacemaker Gout Mzukz-1-abcvrefoxpk deficiency Encounter for discussion regarding implantable cardioverter-defibrillator Cardiomyopathy COPD (chronic obstructive pulmonary disease) Essential hypertension PVC (premature ventricular contraction) MARVA (obstructive sleep apnea) Carcinoid tumor High cholesterol Prostate enlargement Diabetes Surgical History (Updated 06/01/23 @ 10:34 by ALE Harrington) History of surgical procedure (~2022) History of prostate surgery Hx of colonoscopy History of bronchoscopy History of lobectomy of lung Family History Son No problems noted. Father No problems noted. 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 [id number]-Chhisd Cardiac Interrogation, implant defibrillator w/interim Procedure code (CPT) selection complete Assessment & Plan Assessment & Plan (1) NICM (nonischemic cardiomyopathy): Code(s): I42.8 - Other cardiomyopathies Coding Level of Care Code Procedure Only Diagnoses NICM (nonischemic cardiomyopathy) I42.8 CPT Codes Cardiac Device Check - Cardiac Device 13: [id number]-Rgrpjo Cardiac Interrogation, implant defibrillator w/interim ([id number])
== END ==
PROVIDERS: PCP Family Medicine; Visit Provider Internal Medicine
DX: I42.8 Other cardiomyopathies (principal); Z95.810 Presence of automatic (implantable) cardiac defibrillator
CPT/HCPCS: 93295

== ENCOUNTER → 2023-07-16 23:59 | Outpatient (BNV) | payer MEDICAID, SELFPAY ==
--- NOTE | 2023-07-22 15:41 | MHC.OFFVIS ---
Intake Intake Visit Reasons: Remote HF monitoring- [employer] Allergies No Known Allergies Allergy (Mild, Verified 06/01/23 10:31) NONE PFSH Medical History Pacemaker Gout Lmkse-4-yesovmsugwm deficiency Encounter for discussion regarding implantable cardioverter-defibrillator Cardiomyopathy COPD (chronic obstructive pulmonary disease) Essential hypertension PVC (premature ventricular contraction) MARVA (obstructive sleep apnea) Carcinoid tumor High cholesterol Prostate enlargement Diabetes Surgical History (Updated 06/01/23 @ 10:34 by ALE Harrington) History of surgical procedure (~2022) History of prostate surgery Hx of colonoscopy History of bronchoscopy History of lobectomy of lung Family History Son No problems noted. Father No problems noted. 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 Patient activity about 3 hours a day. Adequate heart rate variability. [id number] Cardiac Device Interrogation, cardio physiologic monitor Procedure code (CPT) selection complete Assessment & Plan Assessment & Plan (1) NICM (nonischemic cardiomyopathy): Code(s): I42.8 - Other cardiomyopathies Coding Level of Care Code Procedure Only Diagnoses NICM (nonischemic cardiomyopathy) I42.8 CPT Codes Cardiac Device Check - Cardiac Device 15: [id number] Cardiac Device Interrogation, cardio physiologic monitor ([id number])
== END ==
PROVIDERS: PCP Family Medicine; Visit Provider Internal Medicine
DX: I42.8 Other cardiomyopathies (principal)
CPT/HCPCS: 93297

== ENCOUNTER 2023-08-05 18:47 | Outpatient (REF) | payer MEDICAID, SELFPAY | END 2023-08-05 18:48 | disposition home or self-care (01) | LOC: HO.HHCLNP 18:47 | PROVIDERS: Visit Provider Family Medicine | DX: R30.0 Dysuria (principal) | CPT/HCPCS: 87086; 87088; 87186 ==

== ENCOUNTER → 2023-08-16 23:59 | Outpatient (BNV) | payer MEDICAID, SELFPAY ==
--- NOTE | 2023-08-25 08:23 | A.OFFVIS_ITS ---
Intake Intake Visit Reasons: Remote ICD Check- [employer] Allergies No Known Allergies Allergy (Mild, Verified 06/01/23 10:31) NONE PFSH Medical History Pacemaker Gout Opgmr-4-kbpqynxtfuk deficiency Encounter for discussion regarding implantable cardioverter-defibrillator Cardiomyopathy COPD (chronic obstructive pulmonary disease) Essential hypertension PVC (premature ventricular contraction) MARVA (obstructive sleep apnea) Carcinoid tumor High cholesterol Prostate enlargement Diabetes Surgical History (Updated 06/01/23 @ 10:34 by ALE Harrington) History of surgical procedure (~2022) History of prostate surgery Hx of colonoscopy History of bronchoscopy History of lobectomy of lung Family History Son No problems noted. Father No problems noted. 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 [id number] Cardiac Device Interrogation, cardio physiologic monitor Procedure code (CPT) selection complete Assessment & Plan Assessment & Plan (1) NICM (nonischemic cardiomyopathy): Code(s): I42.8 - Other cardiomyopathies Coding Level of Care Code Procedure Only Diagnoses NICM (nonischemic cardiomyopathy) I42.8 CPT Codes Cardiac Device Check - Cardiac Device 15: 18105-Fkvgza Cardiac Device Interrogation, cardio physiologic monitor ([id number])
== END ==
PROVIDERS: PCP Family Medicine; Visit Provider Internal Medicine
DX: I42.8 Other cardiomyopathies (principal)
CPT/HCPCS: 93297

== ENCOUNTER → 2023-09-16 23:59 | Outpatient (BNV) | payer MEDICAID, SELFPAY ==
--- NOTE | 2023-09-21 12:28 | MHC.OFFVIS ---
Intake Intake Visit Reasons: Remote HF Monitoring- [employer] Allergies No Known Allergies Allergy (Mild, Verified 06/01/23 10:31) NONE PFSH Medical History Pacemaker Gout Airqd-7-kswphrwjqba deficiency Encounter for discussion regarding implantable cardioverter-defibrillator Cardiomyopathy COPD (chronic obstructive pulmonary disease) Essential hypertension PVC (premature ventricular contraction) MARVA (obstructive sleep apnea) Carcinoid tumor High cholesterol Prostate enlargement Diabetes Surgical History (Updated 06/01/23 @ 10:34 by ALE Harrington) History of surgical procedure (~2022) History of prostate surgery Hx of colonoscopy History of bronchoscopy History of lobectomy of lung Family History Son No problems noted. Father No problems noted. 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 91059-Ezeuzx Cardiac Device Interrogation, cardio physiologic monitor Procedure code (CPT) selection complete Assessment & Plan Assessment & Plan (1) NICM (nonischemic cardiomyopathy): Code(s): I42.8 - Other cardiomyopathies Coding Level of Care Code Procedure Only Diagnoses NICM (nonischemic cardiomyopathy) I42.8 CPT Codes Cardiac Device Check - Cardiac Device 15: 92056-Llsoya Cardiac Device Interrogation, cardio physiologic monitor ([id number])
== END ==
PROVIDERS: PCP Family Medicine; Visit Provider Internal Medicine
DX: I42.8 Other cardiomyopathies (principal); Z95.810 Presence of automatic (implantable) cardiac defibrillator
CPT/HCPCS: 93297

== ENCOUNTER → 2023-10-17 23:59 | Outpatient (BNV) | payer MEDICAID, SELFPAY ==
--- NOTE | 2023-10-25 13:13 | MHC.OFFVIS ---
Intake Intake Visit Reasons: Remote ICD Check- [employer] Allergies No Known Allergies Allergy (Mild, Verified 06/01/23 10:31) NONE PFSH Medical History Pacemaker Gout Yabww-4-njluhijumgu deficiency Encounter for discussion regarding implantable cardioverter-defibrillator Cardiomyopathy COPD (chronic obstructive pulmonary disease) Essential hypertension PVC (premature ventricular contraction) MARVA (obstructive sleep apnea) Carcinoid tumor High cholesterol Prostate enlargement Diabetes Surgical History (Updated 06/01/23 @ 10:34 by ALE Harrington) History of surgical procedure (~2022) History of prostate surgery Hx of colonoscopy History of bronchoscopy History of lobectomy of lung Family History Son No problems noted. Father No problems noted. 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 [id number]-Rjgqcn Cardiac Interrogation, implant defibrillator w/interim Procedure code (CPT) selection complete Assessment & Plan Assessment & Plan (1) NICM (nonischemic cardiomyopathy): Code(s): I42.8 - Other cardiomyopathies Plan x Coding Level of Care Code Procedure Only Diagnoses NICM (nonischemic cardiomyopathy) I42.8 CPT Codes Cardiac Device Check - Cardiac Device 13: 33215-Ikheym Cardiac Interrogation, implant defibrillator w/interim ([id number])
== END ==
PROVIDERS: PCP Family Medicine; Visit Provider Internal Medicine
DX: I42.8 Other cardiomyopathies (principal); Z95.810 Presence of automatic (implantable) cardiac defibrillator
CPT/HCPCS: 93295

== ENCOUNTER → 2023-10-17 23:59 | Outpatient (BNV) | payer MEDICAID, SELFPAY ==
--- NOTE | 2023-10-25 13:15 | A.OFFVIS_ITS ---
Intake Intake Visit Reasons: Remote HF Monitoring- [employer] Allergies No Known Allergies Allergy (Mild, Verified 06/01/23 10:31) NONE PFSH Medical History Pacemaker Gout Thhag-9-lwhnxylcmuk deficiency Encounter for discussion regarding implantable cardioverter-defibrillator Cardiomyopathy COPD (chronic obstructive pulmonary disease) Essential hypertension PVC (premature ventricular contraction) MARVA (obstructive sleep apnea) Carcinoid tumor High cholesterol Prostate enlargement Diabetes Surgical History (Updated 06/01/23 @ 10:34 by ALE Harrington) History of surgical procedure (~2022) History of prostate surgery Hx of colonoscopy History of bronchoscopy History of lobectomy of lung Family History Son No problems noted. Father No problems noted. 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 [id number]-Imfums Cardiac Device Interrogation, cardio physiologic monitor Procedure code (CPT) selection complete Assessment & Plan Assessment & Plan (1) NICM (nonischemic cardiomyopathy): Code(s): I42.8 - Other cardiomyopathies Plan x Coding Level of Care Code Procedure Only Diagnoses NICM (nonischemic cardiomyopathy) I42.8 CPT Codes Cardiac Device Check - Cardiac Device 15: [id number] Cardiac Device Interrogation, cardio physiologic monitor ([id number])
== END ==
PROVIDERS: PCP Family Medicine; Visit Provider Internal Medicine
DX: I42.8 Other cardiomyopathies (principal); Z95.810 Presence of automatic (implantable) cardiac defibrillator
CPT/HCPCS: 93297

== ENCOUNTER → 2023-11-17 23:59 | Outpatient (BNV) | payer MEDICAID, SELFPAY ==
--- NOTE | 2023-11-23 12:33 | A.OFFVIS_ITS ---
Intake Intake Visit Reasons: Remote HF Monitoring- [employer] Allergies No Known Allergies Allergy (Mild, Verified 06/01/23 10:31) NONE PFSH Medical History Pacemaker Gout Cblvf-9-fzdewswyafw deficiency Encounter for discussion regarding implantable cardioverter-defibrillator Cardiomyopathy COPD (chronic obstructive pulmonary disease) Essential hypertension PVC (premature ventricular contraction) MARVA (obstructive sleep apnea) Carcinoid tumor High cholesterol Prostate enlargement Diabetes Surgical History History of surgical procedure (~2022) History of prostate surgery Hx of colonoscopy History of bronchoscopy History of lobectomy of lung Family History Son No problems noted. Father No problems noted. 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 31293-Nsrodo Cardiac Device Interrogation, cardio physiologic monitor Procedure code (CPT) selection complete Assessment & Plan Assessment & Plan (1) NICM (nonischemic cardiomyopathy): Code(s): I42.8 - Other cardiomyopathies Plan x Coding Level of Care Code Procedure Only Diagnoses NICM (nonischemic cardiomyopathy) I42.8 CPT Codes Cardiac Device Check - Cardiac Device 15: [id number] Cardiac Device Interrogation, cardio physiologic monitor ([id number])
== END ==
PROVIDERS: PCP Family Medicine; Visit Provider Internal Medicine
DX: I42.8 Other cardiomyopathies (principal)
CPT/HCPCS: 93297

== ENCOUNTER 2023-11-18 09:39 | Outpatient (REF) | payer MEDICAID, SELFPAY ==
[2023-11-18 12:33] LABS: Anion Gap 11 (12-20); Blood Urea Nitrogen 11 mg/dL (9-16); Calcium 9.1 mg/dL (8.4-10.2); Carbon Dioxide 31 mmol/L (22-29); Chloride 104 mmol/L (96-108); Estimated Glomerular Filt Rate > 60; Glucose Random 192 mg/dL (60-115); Potassium 3.6 mmol/L (3.3-5.1); Sodium 142 mmol/L (135-145)
[2023-11-18 12:35] LABS: B Type Natriuretic Peptide 617 pg/mL (<100)
== END 2023-11-18 09:40 | disposition home or self-care (01) ==
LOC: HO.LAB 09:39
PROVIDERS: PCP Family Medicine; Visit Provider Internal Medicine
DX: I11.0 Hypertensive heart disease with heart failure (principal); I50.22 Chronic systolic (congestive) heart failure; I42.8 Other cardiomyopathies; I49.3 Ventricular premature depolarization; E11.9 Type 2 diabetes mellitus without complications
CPT/HCPCS: 36415; 80048; 83880; 93005; 99212

== ENCOUNTER 2023-11-18 09:39 | Outpatient (AMB) | payer MEDICAID, SELFPAY ==
[2023-11-18 10:38] VITALS: BP 120/70; PULSE 80; BMI 27.5
--- NOTE | 2023-11-18 10:38 | A.OFFVIS_ITS ---
Intake Vital Signs 11/18/23 10:38 Height 5 ft 7 in Weight 175 lb 7.807 oz BMI 27.5 BP 120/70 Blood Pressure Location Lt brachial Position Sitting Pulse 80 Intake Visit Reasons: 6 mth f/up Intake Note: 6 mnth f/up pt its been feeling fine. 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 Accompanied by: Self / Same As Patient Allergies No Known Allergies Allergy (Mild, Verified 06/01/23 10:31) NONE Medication List - Last Reconciled 11/18/23 by Tomer Carolina MD albuterol sulfate 90 mcg/actuation 1 inh inhalation QID PRN atorvastatin (Lipitor) 80 mg PO DAILY budesonide-formoterol 160-4.5 mcg/actuation (Symbicort) 2 puffs inhalation BID carvedilol 18.75 mg PO BID cyclobenzaprine 10 mg PO Q8H PRN furosemide 20 mg PO DAILY hydrocodone-acetaminophen 5-325 mg 1 tab PO Q4-6H PRN lidocaine 5% (Lidoderm) 1 patch topical DAILY metformin 1,000 mg PO BID multivitamin 1 tab PO DAILY omega-3 fatty acids 1,000 mg PO BID sacubitril-valsartan 49-51 mg (Entresto) 1 tab PO BID 90 days sertraline 25 mg PO DAILY spironolactone 25 mg PO DAILY HPI HPI Comments History of Present Illness Details Sonny returns for follow-up regarding nonischemic cardiomyopathy. He underwent prophylactic ICD for primary prevention. Otherwise, has a history of frequent PVCs. Multiple other risk factors including diabetes, hypertension, dyslipidemia but cardiac catheterization does not show any significant coronary disease. Since last seen, he states that he is generally feeling fine. Occasionally feels short of breath but again nothing bothersome. No other cardiac concerns. Compliant with medications according to him. [facility] Medical History Pacemaker Gout Dsjdb-3-jfdylgcngcd deficiency Encounter for discussion regarding implantable cardioverter-defibrillator Cardiomyopathy COPD (chronic obstructive pulmonary disease) Essential hypertension PVC (premature ventricular contraction) MARVA (obstructive sleep apnea) Carcinoid tumor High cholesterol Prostate enlargement Diabetes Surgical History History of surgical procedure (~2022) History of prostate surgery Hx of colonoscopy History of bronchoscopy History of lobectomy of lung Family History Son No problems noted. Father No problems noted. 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 Review of Systems Const All systems reviewed & are unremarkable except as noted in HPI and below Reports as per HPI and Reports no additional complaints Eyes Reports as per HPI and Denies no additional complaints ENT Denies no additional complaints and Reports as per HPI Card Reports as per HPI, Reports no additional complaints, Denies acrocyanosis, Denies chest pain, Denies leg edema, Denies lightheadedness, Denies palpitations and Denies dyspnea Resp Reports as per HPI, Denies no additional complaints and Denies dyspnea GI Reports as per HPI and Denies no additional complaints Reports no additional complaints and Reports as per HPI Musc Reports no additional complaints and Reports as per HPI Skin/Breast Reports system reviewed and no additional complaints, except as documented Neuro Reports no additional complaints and Reports as per HPI Psych Reports no additional complaints and Reports as per HPI Endo Reports no additional complaints, Reports as per HPI and Denies palpitations Jack/Lymph Reports no additional complaints and Reports as per HPI Aller/Immun Reports no additional complaints and Reports as per HPI Physical Exam Vital Signs: Last Vital Signs Pulse 80 11/18/23 10:38 BP 120/70 11/18/23 10:38 BMI result Body Mass Index 27.5 Const General: comfortable and no acute distress Orientation/consciousness: patient oriented x3 HEENT Other: Unremarkable Head: Yes normal to inspection Neck Neck: Yes normal visual inspection Chest Chest palpation & inspection: normal inspection of the chest Resp Auscultation: clear to auscultation bilaterally Cardio Palpation: normal PMI Heart sounds: S1 normal heart sound present, S2 normal heart sound present, no gallops, no murmurs and no rubs GI Palpation (GI): Soft to palpation Back/Spine/Pelvis Other: unremarkable Skin General skin exam: no rashes or lesions noted Neuro General: patient oriented x3 Extrem General: Yes normal to inspection Psych Mental Status: mental status grossly normal Office Procedures EKG Details: EKG with sinus rhythm at 80/Min; minimal criteria for LVH; nonspecific ST-T changes; [place]. [address]-Fnrwuskufjeyiszfo, Complete Assessment & Plan Assessment & Plan (1) NICM (nonischemic cardiomyopathy): Code(s): I42.8 - Other cardiomyopathies Plan: Last echocardiogram with LVEF of 20-25%. Cardiac catheterization with mild luminal irregularities in the LAD but otherwise unremarkable coronaries. LVEDP was also normal. Could be either from hypertension or from alcoholic cardiomyopathy. However, no alcohol excess in the last few years. Continue Coreg/Entresto/spironolactone. Low-dose diuretics. Advised to go to labs today. (2) PVC (premature ventricular contraction): Code(s): I49.3 - Ventricular premature depolarization Plan: In the loss total, PVC burden of 5.3%. Short runs noted. Nothing sustained. Already has ICD in place. (3) Essential hypertension: Code(s): I10 - Essential (primary) hypertension Plan: Stable. No changes. (4) Diabetes: Code(s): E11.9 - Type 2 diabetes mellitus without complications Plan: On metformin. Consider adding or switching to Farxiga. Coding Level of Care Code Est Pt Level 4 (89470) Diagnoses NICM (nonischemic cardiomyopathy) I42.8 PVC (premature ventricular contraction) I49.3 Essential hypertension I10 Diabetes E11.9 CPT Codes EKG - CPT: 18022-Mzgshvkepxkfldrgp, Complete ([id number])
== END 2023-11-18 11:03 | disposition home or self-care (01) ==
PROVIDERS: PCP Family Medicine; Visit Provider Internal Medicine
DX: I42.8 Other cardiomyopathies (principal); I49.3 Ventricular premature depolarization; I10 Essential (primary) hypertension; E11.9 Type 2 diabetes mellitus without complications
CPT/HCPCS: 93010; 99214

== ENCOUNTER → 2023-12-17 23:59 | Outpatient (BNV) | payer MEDICARE, MEDICAID, SELFPAY ==
--- NOTE | 2023-12-22 14:24 | MHC.OFFVIS ---
Intake Intake Visit Reasons: Remote HF Monitoring- [employer] Allergies No Known Allergies Allergy (Mild, Verified 06/01/23 10:31) NONE PFSH Medical History Pacemaker Gout Wkdkg-0-dddzsyaigse deficiency Encounter for discussion regarding implantable cardioverter-defibrillator Cardiomyopathy COPD (chronic obstructive pulmonary disease) Essential hypertension PVC (premature ventricular contraction) MARVA (obstructive sleep apnea) Carcinoid tumor High cholesterol Prostate enlargement Diabetes Surgical History History of surgical procedure (~2022) History of prostate surgery Hx of colonoscopy History of bronchoscopy History of lobectomy of lung Family History Son No problems noted. Father No problems noted. 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 [id number] Cardiac Device Interrogation, cardio physiologic monitor Procedure code (CPT) selection complete Assessment & Plan Assessment & Plan (1) NICM (nonischemic cardiomyopathy): Code(s): I42.8 - Other cardiomyopathies Plan x Coding Level of Care Code Procedure Only Diagnoses NICM (nonischemic cardiomyopathy) I42.8 CPT Codes Cardiac Device Check - Cardiac Device 15: 13454-Sfgxkj Cardiac Device Interrogation, cardio physiologic monitor ([id number])
== END ==
PROVIDERS: PCP Family Medicine; Visit Provider Internal Medicine
DX: I42.8 Other cardiomyopathies (principal); Z95.810 Presence of automatic (implantable) cardiac defibrillator
CPT/HCPCS: 93297

== ENCOUNTER 2023-12-28 17:43 | Outpatient (REF) | payer MEDICARE, MEDICAID, SELFPAY | END 2023-12-28 17:44 | disposition home or self-care (01) | LOC: HO.HHCLNP 17:43 | PROVIDERS: Visit Provider Nurse Practitioner Family | DX: R39.9 Unspecified symptoms and signs involving the genitourinary system (principal) | CPT/HCPCS: 87086 ==

== ENCOUNTER 2024-01-15 09:53 | Outpatient (REF) | payer MEDICARE, MEDICAID, SELFPAY ==
[2024-01-15 10:41] LABS: Potassium 3.8 mmol/L (3.3-5.1)
== END 2024-01-15 09:54 | disposition home or self-care (01) ==
LOC: HO.LAB 09:53
PROVIDERS: Visit Provider Nurse Practitioner Family
DX: E87.6 Hypokalemia (principal)
CPT/HCPCS: 36415; 84132

== ENCOUNTER → 2024-01-17 23:59 | Outpatient (BNV) | payer MEDICARE, MEDICAID, SELFPAY ==
--- NOTE | 2024-01-24 18:55 | MHC.OFFVIS ---
Intake Intake Visit Reasons: Remote ICD Check- [employer] Allergies No Known Allergies Allergy (Mild, Verified 06/01/23 10:31) NONE PFSH Medical History Pacemaker Gout Cfanr-2-qzjavzpwspd deficiency Encounter for discussion regarding implantable cardioverter-defibrillator Cardiomyopathy COPD (chronic obstructive pulmonary disease) Essential hypertension PVC (premature ventricular contraction) MARVA (obstructive sleep apnea) Carcinoid tumor High cholesterol Prostate enlargement Diabetes Surgical History History of surgical procedure (~2022) History of prostate surgery Hx of colonoscopy History of bronchoscopy History of lobectomy of lung Family History Son No problems noted. Father No problems noted. 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 [id number] Cardiac Interrogation, implant defibrillator w/interim Procedure code (CPT) selection complete Assessment & Plan Assessment & Plan (1) NICM (nonischemic cardiomyopathy): Code(s): I42.8 - Other cardiomyopathies Plan x Coding Level of Care Code Procedure Only Diagnoses NICM (nonischemic cardiomyopathy) I42.8 CPT Codes Cardiac Device Check - Cardiac Device 13: [id number] Cardiac Interrogation, implant defibrillator w/interim ([id number])
== END ==
PROVIDERS: PCP Family Medicine; Visit Provider Internal Medicine
DX: I42.8 Other cardiomyopathies (principal); Z95.810 Presence of automatic (implantable) cardiac defibrillator
CPT/HCPCS: 93295

== ENCOUNTER → 2024-01-17 23:59 | Outpatient (BNV) | payer MEDICARE, MEDICAID, SELFPAY ==
--- NOTE | 2024-01-24 18:54 | MHC.OFFVIS ---
Intake Intake Visit Reasons: Remote HF Monitoring- [employer] Allergies No Known Allergies Allergy (Mild, Verified 06/01/23 10:31) NONE PFSH Medical History Pacemaker Gout Inmqm-2-jrqnqpkfohq deficiency Encounter for discussion regarding implantable cardioverter-defibrillator Cardiomyopathy COPD (chronic obstructive pulmonary disease) Essential hypertension PVC (premature ventricular contraction) MARVA (obstructive sleep apnea) Carcinoid tumor High cholesterol Prostate enlargement Diabetes Surgical History History of surgical procedure (~2022) History of prostate surgery Hx of colonoscopy History of bronchoscopy History of lobectomy of lung Family History Son No problems noted. Father No problems noted. 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 [id number] Cardiac Device Interrogation, cardio physiologic monitor Procedure code (CPT) selection complete Assessment & Plan Assessment & Plan (1) NICM (nonischemic cardiomyopathy): Code(s): I42.8 - Other cardiomyopathies Plan x Coding Level of Care Code Procedure Only Diagnoses NICM (nonischemic cardiomyopathy) I42.8 CPT Codes Cardiac Device Check - Cardiac Device 15: [id number] Cardiac Device Interrogation, cardio physiologic monitor ([id number])
== END ==
PROVIDERS: PCP Family Medicine; Visit Provider Internal Medicine
DX: I42.8 Other cardiomyopathies (principal)
CPT/HCPCS: 93297

== ENCOUNTER → 2024-02-17 23:59 | Outpatient (BNV) | payer OTHER, SELFPAY ==
--- NOTE | 2024-02-22 19:11 | A.OFFVIS_ITS ---
Intake Visit Reasons: Remote HF monitoring- [employer] Allergies No Known Allergies Allergy (Mild, Verified 06/01/23 10:31) NONE PFSH Medical History Pacemaker Gout Cpfhm-8-dguzvetbvso deficiency Encounter for discussion regarding implantable cardioverter-defibrillator Cardiomyopathy COPD (chronic obstructive pulmonary disease) Essential hypertension PVC (premature ventricular contraction) MARVA (obstructive sleep apnea) Carcinoid tumor High cholesterol Prostate enlargement Diabetes Surgical History History of surgical procedure (~2022) History of prostate surgery Hx of colonoscopy History of bronchoscopy History of lobectomy of lung Family History Son No problems noted. Father No problems noted. 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 [id number] Cardiac Device Interrogation, cardio physiologic monitor Procedure code (CPT) selection complete Assessment & Plan Assessment & Plan (1) NICM (nonischemic cardiomyopathy): Code(s): I42.8 - Other cardiomyopathies Category: Medical Plan x Coding Level of Care Code Procedure Only Diagnoses NICM (nonischemic cardiomyopathy) I42.8 CPT Codes Cardiac Device Check - Cardiac Device 15: [id number] Cardiac Device Interrogation, cardio physiologic monitor ([id number])
== END ==
PROVIDERS: PCP Family Medicine; Visit Provider Internal Medicine
DX: I42.8 Other cardiomyopathies (principal); Z95.810 Presence of automatic (implantable) cardiac defibrillator
CPT/HCPCS: 93297

== ENCOUNTER → 2024-03-18 23:59 | Outpatient (BNV) | payer MEDICARE, MEDICAID, SELFPAY ==
--- NOTE | 2024-03-26 14:03 | A.OFFVIS_ITS ---
Intake Visit Reasons: Remote HF monitoring- [employer] Allergies No Known Allergies Allergy (Mild, Verified 06/01/23 10:31) NONE PFSH Medical History Pacemaker Gout Czsoc-0-zlmxeetoyso deficiency Encounter for discussion regarding implantable cardioverter-defibrillator Cardiomyopathy COPD (chronic obstructive pulmonary disease) Essential hypertension PVC (premature ventricular contraction) MARVA (obstructive sleep apnea) Carcinoid tumor High cholesterol Prostate enlargement Diabetes Surgical History History of surgical procedure (~2022) History of prostate surgery Hx of colonoscopy History of bronchoscopy History of lobectomy of lung Family History Son No problems noted. Father No problems noted. 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 [id number] Cardiac Device Interrogation, cardio physiologic monitor Procedure code (CPT) selection complete Assessment & Plan Assessment & Plan (1) NICM (nonischemic cardiomyopathy): Code(s): I42.8 - Other cardiomyopathies Category: Medical Plan x Coding Level of Care Code Procedure Only Diagnoses NICM (nonischemic cardiomyopathy) I42.8 CPT Codes Cardiac Device Check - Cardiac Device 15: 03103-Qaznfz Cardiac Device Interrogation, cardio physiologic monitor ([id number])
== END ==
PROVIDERS: PCP Family Medicine; Visit Provider Internal Medicine
DX: I42.8 Other cardiomyopathies (principal); Z95.810 Presence of automatic (implantable) cardiac defibrillator
CPT/HCPCS: 93297

== ENCOUNTER → 2024-04-18 23:59 | Outpatient (BNV) | payer OTHER, SELFPAY ==
--- NOTE | 2024-04-20 12:29 | MHC.OFFVIS ---
Intake Visit Reasons: Remote HF monitoring- [employer] Allergies No Known Allergies Allergy (Mild, Verified 06/01/23 10:31) NONE PFSH Medical History Pacemaker Gout Zbvmx-5-engnibiuffj deficiency Encounter for discussion regarding implantable cardioverter-defibrillator Cardiomyopathy COPD (chronic obstructive pulmonary disease) Essential hypertension PVC (premature ventricular contraction) MARVA (obstructive sleep apnea) Carcinoid tumor High cholesterol Prostate enlargement Diabetes Surgical History History of surgical procedure (~2022) History of prostate surgery Hx of colonoscopy History of bronchoscopy History of lobectomy of lung Family History Son No problems noted. Father No problems noted. 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 [id number]-Krtuge Cardiac Device Interrogation, cardio physiologic monitor Procedure code (CPT) selection complete Assessment & Plan Assessment & Plan (1) NICM (nonischemic cardiomyopathy): Code(s): I42.8 - Other cardiomyopathies Category: Medical Plan x Coding Level of Care Code Procedure Only Diagnoses NICM (nonischemic cardiomyopathy) I42.8 CPT Codes Cardiac Device Check - Cardiac Device 15: [id number]-Lekjqy Cardiac Device Interrogation, cardio physiologic monitor ([id number])
== END ==
PROVIDERS: PCP Family Medicine; Visit Provider Internal Medicine
DX: I42.8 Other cardiomyopathies (principal); Z95.810 Presence of automatic (implantable) cardiac defibrillator
CPT/HCPCS: 93297

== ENCOUNTER → 2024-04-18 23:59 | Outpatient (BNV) | payer OTHER, SELFPAY ==
--- NOTE | 2024-04-20 12:28 | A.OFFVIS_ITS ---
Intake Visit Reasons: Remote ICD Check- [employer] Allergies No Known Allergies Allergy (Mild, Verified 06/01/23 10:31) NONE PFSH Medical History Pacemaker Gout Qcfkf-5-kmqdowxpbyw deficiency Encounter for discussion regarding implantable cardioverter-defibrillator Cardiomyopathy COPD (chronic obstructive pulmonary disease) Essential hypertension PVC (premature ventricular contraction) MARVA (obstructive sleep apnea) Carcinoid tumor High cholesterol Prostate enlargement Diabetes Surgical History History of surgical procedure (~2022) History of prostate surgery Hx of colonoscopy History of bronchoscopy History of lobectomy of lung Family History Son No problems noted. Father No problems noted. 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 [id number] Cardiac Interrogation, implant defibrillator w/interim Procedure code (CPT) selection complete Assessment & Plan Assessment & Plan (1) NICM (nonischemic cardiomyopathy): Code(s): I42.8 - Other cardiomyopathies Category: Medical Plan x Coding Level of Care Code Procedure Only Diagnoses NICM (nonischemic cardiomyopathy) I42.8 CPT Codes Cardiac Device Check - Cardiac Device 13: [id number] Cardiac Interrogation, implant defibrillator w/interim ([id number])
== END ==
PROVIDERS: PCP Family Medicine; Visit Provider Internal Medicine
DX: I42.8 Other cardiomyopathies (principal); Z95.810 Presence of automatic (implantable) cardiac defibrillator
CPT/HCPCS: 93295

== ENCOUNTER 2024-04-21 09:59 | Outpatient (REF) | payer OTHER, SELFPAY ==
[2024-04-21 11:25] LABS: Hematocrit 47.5 % (42.0-52.0); Hemoglobin 15.7 g/dl (14.0-18.0); Mean Corpuscular HGB Conc 33.1 g/dl (31.0-36.0); Mean Corpuscular Hemoglobin 31.2 pg (27.0-33.0); Mean Corpuscular Volume 94.2 fL (80.0-98.0); Mean Platelet Volume 11.3 fL (9.4-12.4); Platelet Count 177 X10*3/uL (160-400); Red Blood Count 5.04 X10*6/uL (4.60-5.80); Red Cell Distribution Width 15.2 % (11.0-16.0)
[2024-04-21 11:46] LABS: Estimated Average Glucose 140 mg/dL; Hemoglobin A1c % 6.5 % (<6.0)
[2024-04-21 11:47] LABS: Alanine Aminotransferase 24 U/L (0-40); Albumin Level 4.4 g/dL (3.5-5.0); Alkaline Phosphatase 67 U/L (39-117); Anion Gap 13 (12-20); Aspartate Amino Transferase 22 U/L (5-37); Bilirubin Direct 0.4 mg/dL (0.0-0.5); Bilirubin Total 0.9 mg/dL (0.0-1.0); Blood Urea Nitrogen 23 mg/dL (9-16); Carbon Dioxide 25 mmol/L (22-29); Chloride 108 mmol/L (96-108); Cholesterol 96 mg/dL (<200); Estimated Glomerular Filt Rate > 60; Glucose Random 111 mg/dL (60-115); HDL Cholesterol 34 mg/dL (>40); LDL Cholesterol Calculated 43 mg/dL (<100); Potassium 3.9 mmol/L (3.3-5.1); Sodium 142 mmol/L (135-145); Total Protein 7.6 g/dL (6.5-8.0); Triglycerides 98 mg/dL (<150)
[2024-04-21 11:57] LABS: Creatinine Urine 80.22 mg/dL; Microalbum/Creatinine Ratio Ur 42.3 ug/mg cr (<30)
[2024-04-21 12:07] LABS: Free T4 (Free Thyroxine) 0.86 ng/dL (0.71-1.85); Thyroid Stimulating Hormone 1.39 uIU/mL (0.32-4.0); Vitamin D 25-OH Total 32.1 ng/mL (>30)
[2024-04-26 13:09] LABS: Alpha Fetoprotein 1.7 ng/mL (<6.1)
== END 2024-04-21 10:00 | disposition home or self-care (01) ==
LOC: HO.HHCL 09:59
PROVIDERS: Visit Provider Family Medicine
DX: Z00.00 Encounter for general adult medical examination without abnormal findings (principal); E11.29 Type 2 diabetes mellitus with other diabetic kidney complication; R80.9 Proteinuria, unspecified; I10 Essential (primary) hypertension; E78.49 Other hyperlipidemia; K76.0 Fatty (change of) liver, not elsewhere classified; F41.9 Anxiety disorder, unspecified; I42.9 Cardiomyopathy, unspecified; R30.0 Dysuria; R97.20 Elevated prostate specific antigen [PSA]; G47.30 Sleep apnea, unspecified
CPT/HCPCS: 36415; 80048; 80061; 80076; 82043; 82105; 82306; 82570; 83036; 84439; 84443; 85027

== ENCOUNTER 2024-05-03 09:49 | Outpatient (AMB) | payer OTHER, SELFPAY ==
[2024-05-03 10:18] VITALS: BP 108/70; PULSE 82; BMI 24.9
--- NOTE | 2024-05-03 10:18 | MHC.OFFVIS ---
Vital Signs 05/03/24 10:18 Height 5 ft 7 in Weight 159 lb 2.78 oz BMI 24.9 BP 108/70 Blood Pressure Location Lt brachial Position Sitting Pulse 82 Pulse Source Pulse Oximeter Intake Visit Reasons: 6 month fu Radiology Scheduler Required: No Accompanied by: Self / Same As Patient Allergies No Known Allergies Allergy (Mild, Verified 06/01/23 10:31) NONE Medication List - Last Reconciled 05/03/24 by Tomer Carolina MD albuterol sulfate 90 mcg/actuation 1 inh inhalation QID PRN atorvastatin (Lipitor) 80 mg PO DAILY budesonide-formoterol 160-4.5 mcg/actuation (Symbicort) 2 puffs inhalation BID carvedilol 18.75 mg PO BID cyclobenzaprine 10 mg PO Q8H PRN dapagliflozin propanediol (Farxiga) 10 mg PO DAILY furosemide 20 mg PO DAILY hydrocodone-acetaminophen 5-325 mg 1 tab PO Q4-6H PRN metformin 1,000 mg PO BID multivitamin 1 tab PO DAILY omega-3 fatty acids 1,000 mg PO BID sacubitril-valsartan 49-51 mg (Entresto) 1 tab PO BID 90 days sertraline 25 mg PO DAILY spironolactone 25 mg PO DAILY HPI Comments Details: Sonny returns for follow-up regarding nonischemic cardiomyopathy ICD. Has a history of frequent PVCs. Multiple risk factors including diabetes, hypertension, dyslipidemia but cardiac catheterization does not show any significant coronary disease. Overall, feeling good. He states he is losing weight but otherwise no specific cardiac concerns. [facility] Medical History Pacemaker Gout Oufjb-9-rismbahjshg deficiency Encounter for discussion regarding implantable cardioverter-defibrillator Cardiomyopathy COPD (chronic obstructive pulmonary disease) Essential hypertension PVC (premature ventricular contraction) MARVA (obstructive sleep apnea) Carcinoid tumor High cholesterol Prostate enlargement Diabetes Surgical History History of surgical procedure (~2022) History of prostate surgery Hx of colonoscopy History of bronchoscopy History of lobectomy of lung Family History Son No problems noted. Father No problems noted. 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 Review of Systems Const Denies chills, Denies fatigue, Denies fever(s), Denies weight gain and Denies weight loss ENT Denies dizziness Card Denies chest pain, Denies leg edema, Denies lightheadedness, Denies palpitations, Denies dyspnea on exertion, Denies orthopnea and Denies other Resp Denies cough and Denies dyspnea on exertion GI Denies hematochezia and Denies change in stool character Musc Denies abnormal gait, Denies muscle weakness, Denies numbness, Denies radiating pain into limb and Denies tingling Neuro Denies abnormal gait, Denies dizziness, Denies numbness and Denies tingling Endo Denies fatigue and Denies palpitations Physical Exam Vital Signs: Last Vital Signs Pulse 82 05/03/24 10:18 BP 108/70 05/03/24 10:18 BMI result Body Mass Index 24.9 Const General: comfortable and no acute distress Orientation/consciousness: patient oriented x3 HEENT Other: Unremarkable Head: Yes normal to inspection Neck Neck: Yes normal visual inspection Chest Chest palpation & inspection: normal inspection of the chest Resp Auscultation: clear to auscultation bilaterally Cardio Palpation: normal PMI Heart sounds: S1 normal heart sound present, S2 normal heart sound present, no gallops, no murmurs and no rubs GI Palpation (GI): Soft to palpation Back/Spine/Pelvis Other: unremarkable Skin General skin exam: no rashes or lesions noted Neuro General: patient oriented x3 Extrem General: Yes normal to inspection Psych Mental Status: mental status grossly normal Assessment & Plan Assessment & Plan (1) NICM (nonischemic cardiomyopathy): Code(s): I42.8 - Other cardiomyopathies Category: Medical Plan: Last echocardiogram with LVEF of 20-25%. Cardiac catheterization with mild luminal irregularities in the LAD but otherwise unremarkable coronaries. LVEDP was also normal. Could be either from hypertension or from alcoholic cardiomyopathy. However, no alcohol excess in the last few years. Continue Coreg/Entresto/spironolactone/Farxiga. Low-dose diuretics. Stable renal function. (2) PVC (premature ventricular contraction): Code(s): I49.3 - Ventricular premature depolarization Category: Medical Plan: In the last Holter, PVC burden of 5.3%. Short runs noted. Nothing sustained. Already has ICD in place. (3) Essential hypertension: Code(s): I10 - Essential (primary) hypertension Category: Medical Plan: Stable. No changes. (4) Diabetes: Code(s): E11.9 - Type 2 diabetes mellitus without complications Category: Medical Plan: On metformin/Farxiga. Last hemoglobin A1c is 6.5%. Orders: Orders CA echo transthoracic complete 6 Months I42.8 - Other cardiomyopathies Coding Level of Care Code Est Pt Level 4 (22372) Diagnoses NICM (nonischemic cardiomyopathy) I42.8 PVC (premature ventricular contraction) I49.3 Essential hypertension I10 Diabetes E11.9
== END 2024-05-03 10:34 | disposition home or self-care (01) ==
PROVIDERS: PCP Family Medicine; Visit Provider Internal Medicine
DX: I42.8 Other cardiomyopathies (principal); I49.3 Ventricular premature depolarization; I10 Essential (primary) hypertension; E11.9 Type 2 diabetes mellitus without complications
CPT/HCPCS: 99214

== ENCOUNTER → 2024-05-03 09:49 | Outpatient (BNVA) | payer MEDICAID, SELFPAY | PROVIDERS: PCP Family Medicine; Visit Provider Internal Medicine | DX: I42.8 Other cardiomyopathies (principal); I49.3 Ventricular premature depolarization; I10 Essential (primary) hypertension; E11.9 Type 2 diabetes mellitus without complications; Z79.84 Long term (current) use of oral hypoglycemic drugs; Z79.899 Other long term (current) drug therapy | CPT/HCPCS: 99212 ==

== ENCOUNTER → 2024-05-19 23:59 | Outpatient (BNV) | payer OTHER, SELFPAY ==
--- NOTE | 2024-05-20 14:03 | MHC.OFFVIS ---
Intake Visit Reasons: Remote HF monitoring- [employer] Allergies No Known Allergies Allergy (Mild, Verified 06/01/23 10:31) NONE PFSH Medical History Pacemaker Gout Qkvoc-3-jrhqbarcoid deficiency Encounter for discussion regarding implantable cardioverter-defibrillator Cardiomyopathy COPD (chronic obstructive pulmonary disease) Essential hypertension PVC (premature ventricular contraction) MARVA (obstructive sleep apnea) Carcinoid tumor High cholesterol Prostate enlargement Diabetes Surgical History History of surgical procedure (~2022) History of prostate surgery Hx of colonoscopy History of bronchoscopy History of lobectomy of lung Family History Son No problems noted. Father No problems noted. 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 [id number] Cardiac Device Interrogation, cardio physiologic monitor Procedure code (CPT) selection complete Assessment & Plan Assessment & Plan (1) NICM (nonischemic cardiomyopathy): Code(s): I42.8 - Other cardiomyopathies Category: Medical Plan x Coding Level of Care Code Procedure Only Diagnoses NICM (nonischemic cardiomyopathy) I42.8 CPT Codes Cardiac Device Check - Cardiac Device 15: [id number] Cardiac Device Interrogation, cardio physiologic monitor ([id number])
== END ==
PROVIDERS: PCP Family Medicine; Visit Provider Internal Medicine
DX: I42.8 Other cardiomyopathies (principal); Z95.0 Presence of cardiac pacemaker
CPT/HCPCS: 93297

== ENCOUNTER 2024-05-24 09:56 | Emergency (ER) | payer OTHER, SELFPAY ==
[2024-05-24 10:13] VITALS: BP 126/87; PULSE 81; RESP 16; TEMP 36.6; O2SAT 99; BMI 25.8
[2024-05-24 10:57] LABS: MANUAL DIFF FLAG NO
[2024-05-24 10:59] LABS: Basophils Percent Auto 0.4 % (0-2); Eosinophils Absolute Auto 0.1 X10*3/uL (0.0-0.4); Eosinophils Percent Auto 0.8 % (0-4); Hematocrit 41.9 % (42.0-52.0); Hemoglobin 13.9 g/dl (14.0-18.0); Imm Gran Abs Auto 0.03 X10*3/uL (0.00-0.03); Imm Gran Pct Auto 0.3 % (0.0-0.4); Lymphocytes Percent Auto 21.4 % (20-40); Mean Corpuscular HGB Conc 33.2 g/dl (31.0-36.0); Mean Corpuscular Hemoglobin 31.4 pg (27.0-33.0); Mean Corpuscular Volume 94.8 fL (80.0-98.0); Monocytes Absolute Auto 1.2 X10*3/uL (0.1-1.2); Monocytes Percent Auto 12.2 % (2-11); Neutrophils Absolute Auto 6.1 x10*3/uL (2.0-8.3); Neutrophils Percent Auto 64.9 % (45-73); Platelet Count 182 X10*3/uL (160-400); Red Blood Count 4.42 X10*6/uL (4.60-5.80); White Blood Count 9.5 X10*3/uL (4.8-10.8)
[2024-05-24 11:20] LABS: Alanine Aminotransferase 16 U/L (0-40); Albumin Level 3.7 g/dL (3.5-5.0); Alkaline Phosphatase 54 U/L (39-117); Anion Gap 11 (12-20); Aspartate Amino Transferase 16 U/L (5-37); Blood Urea Nitrogen 10 mg/dL (9-16); Calcium 9.5 mg/dL (8.4-10.2); Carbon Dioxide 26 mmol/L (22-29); Chloride 109 mmol/L (96-108); Creatinine Clr Calc Pharmacy 87.1; Estimated Glomerular Filt Rate > 60; Glucose Random 110 mg/dL (60-115); Potassium 3.5 mmol/L (3.3-5.1); Sodium 142 mmol/L (135-145); Total Protein 6.6 g/dL (6.5-8.0)
--- NOTE | 2024-05-24 11:29 | ED.GENADULT ---
HPI - General Adult General Chief complaint: Back Pain/Injury Stated complaint: back pain Time Seen by Provider: 05/24/24 10:34 Source: patient and family Mode of arrival: ambulatory Limitations: no limitations History of Present Illness ED Provider: Dr. Penny HPI narrative: 1 week of thigh and leg myalgias. Patient denies fever, rash, tick bite. States this has happened to him in the past Onset (ago): week(s) Severity: moderate Related Data Home Medications ?Medication ?Instructions ?Recorded ?Confirmed atorvastatin 80 mg tablet (Lipitor) 80 mg PO DAILY 08/20/20 05/03/24 metformin 500 mg tablet 1,000 mg PO BID 08/20/20 05/03/24 omega-3 fatty acids 1,000 mg 1,000 mg PO BID 08/20/20 05/03/24 capsule albuterol sulfate 90 mcg/actuation 1 inh inhalation QID PRN Shortness 11/22/20 05/03/24 aerosol inhaler Of Breath Or Wheezing carvedilol 12.5 mg tablet 18.75 mg PO BID 05/20/23 05/03/24 multivitamin 1 tab PO DAILY 05/20/23 05/03/24 sertraline 25 mg tablet 25 mg PO DAILY 05/20/23 05/03/24 Previous Rx's ?Medication ?Instructions ?Recorded budesonide-formoterol HFA 160 2 puff inhalation BID #10.2 grams 06/11/21 mcg-4.5 mcg/actuation aerosol inhaler (Symbicort) cyclobenzaprine 10 mg tablet 10 mg PO Q8H PRN Muscle spasm #14 12/08/21 tabs hydrocodone 5 mg-acetaminophen 325 1 tab PO Q4-6H PRN pain #30 tabs 05/25/23 mg tablet furosemide 20 mg tablet 20 mg PO DAILY #90 tabs 09/02/23 spironolactone 25 mg tablet 25 mg PO DAILY #90 tabs 09/02/23 dapagliflozin propanediol 10 mg 10 mg PO DAILY #90 tabs 11/18/23 tablet (Farxiga) sacubitril 49 mg-valsartan 51 mg 1 tab PO BID 90 days #180 tabs 04/14/24 tablet (Entresto) meloxicam 7.5 mg tablet 7.5 mg PO DAILY #14 tabs 05/24/24 Allergies Allergy/AdvReac Type Severity Reaction Status Date / Time No Known Allergies Allergy Mild NONE Verified 05/24/24 10:14 Review of Systems Review of Systems: Yes all other systems are reviewed and are negative Neurologic: Denies Sensory deficit (Neuro) [facility] Past Medical History Medical History Pacemaker Gout [id number] deficiency Encounter for discussion regarding implantable cardioverter-defibrillator Cardiomyopathy COPD (chronic obstructive pulmonary disease) Essential hypertension PVC (premature ventricular contraction) MARVA (obstructive sleep apnea) Carcinoid tumor High cholesterol Prostate enlargement Diabetes Surgical History History of surgical procedure (~2022) History of prostate surgery Hx of colonoscopy History of bronchoscopy History of lobectomy of lung Family History Family History Son No problems noted. Father No problems noted. 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 Physical Exam ED Vital Signs: Vital Signs - 24 hr 05/24/24 10:13 Temperature 98 F Pulse Rate 81 Respiratory Rate 16 Blood Pressure 126/87 Pulse Oximetry 99 Oxygen Delivery Method Room Air BMI result Body Mass Index 25.8 Const General: healthy appearing Nutritional Appearance: average body habitus Orientation/consciousness: oriented to person and patient oriented x3 Limitations: no limitations HENMT Head: Yes normal to inspection Ears: external ears normal General nose exam: Normal external nose present Mouth: Normal oral and palatal mucosa present and oropharynx normal Throat: Yes posterior oropharynx normal Eyes General: appearance normal, both eyes and all related structures Neck Neck: Yes normal visual inspection Chest Chest palpation & inspection: normal inspection of the chest Resp Auscultation: clear to auscultation bilaterally Cardio Jugular venous distension: no JVD Rate: regular rate Rhythm: regular rhythm Heart sounds: S1 normal heart sound present and S2 normal heart sound present GI Inspection: Yes normal to inspection Palpation (GI): Soft to palpation, nontender and No hepatosplenomegaly present Auscultation: normal bowel sounds General: Yes no CVA tenderness Back/Spine/Pelvis Back: no CVA tenderness Skin General skin exam: no rashes or lesions noted Neuro General: oriented to person and patient oriented x3 Cranial nerves: Yes CN's II-XII intact bilaterally Motor exam (neuro): 5/5 motor strength present throughout Sensory Exam: No Sensory deficit (Neuro) Extrem Other: good PT and DP pulses no edema General: Yes normal to inspection Psych Appearance: grossly normal Course Reevaluation(s) Reevaluation #1: sed rate low, TSH normal, no evidence of myositis as CPK is low will dc on Nsaids Time: 13:47 Medications Administered Discontinued Medications Generic Name Dose Route Start Last Admin Trade Name Freq PRN Reason Stop Dose Admin Ketorolac Tromethamine 60 mg 05/24/24 11:29 05/24/24 11:37 Ketorolac Tromethamine 60 Mg/2 Ml Vial IM 05/24/24 11:30 60 mg ONCE ONE Administration Medical Decision Making Differential Diagnosis Differential Diagnoses: The differential diagnosis associated with the presentation includes (hypothyroidism, electrolyte abnormality, myositis) Admission/Observation Consideration of admission/observation: Escalation of care including admission/observation considered (upon arrival patient considered for admission) Lab Data 05/24/24 10:49 05/24/24 10:50 Labs: Lab Results 05/24/24 05/24/24 Range/Units 10:49 10:50 WBC 9.5 (4.8-10.8) X10*3/uL RBC 4.42 L (4.60-5.80) X10*6/uL Hgb 13.9 L (14.0-18.0) g/dl Hct 41.9 L (42.0-52.0) % MCV 94.8 (80.0-98.0) fL MCH 31.4 (27.0-33.0) pg MCHC 33.2 (31.0-36.0) g/dl RDW 15.0 (11.0-16.0) % Plt Count 182 (160-400) X10*3/uL MPV 10.0 (9.4-12.4) fL Immature Gran % (Auto) 0.3 (0.0-0.4) % Neut % (Auto) 64.9 (45-73) % Lymph % (Auto) 21.4 (20-40) % [place] % (Auto) 12.2 H (2-11) % Eos % (Auto) 0.8 (0-4) % Baso % (Auto) 0.4 (0-2) % Lymph # (Auto) 2.0 (1.2-4.9) X10*3/uL [place] # (Auto) 1.2 (0.1-1.2) X10*3/uL Eos # (Auto) 0.1 (0.0-0.4) X10*3/uL Baso # (Auto) 0.0 (0.0-0.2) X10*3/uL Abs Immat Gran (auto) 0.03 (0.00-0.03) X10*3/uL Absolute Neuts (auto) 6.1 (2.0-8.3) x10*3/uL Absolute Nucleated RBC 0.000 (0.0-0.012) X10*3/uL Nucleated RBC % (auto) 0.0 (0.0-0.2) /100WBC ESR 10 (0-15) MM/HR Sodium 142 (135-145) mmol/L Potassium 3.5 (3.3-5.1) mmol/L Chloride 109 H (96-108) mmol/L Carbon Dioxide 26 (22-29) mmol/L Anion Gap 11 L (12-20) BUN 10 (9-16) mg/dL Creatinine 0.79 (0.5-1.4) mg/dL Estim Creat Clear Calc 87.1 Estimated GFR > 60 Random Glucose 110 (60-115) mg/dL Calcium 9.5 (8.4-10.2) mg/dL Total Bilirubin 1.0 (0.0-1.0) mg/dL AST 16 (5-37) U/L ALT 16 (0-40) U/L Alkaline Phosphatase 54 (39-117) U/L Total Creatine Kinase 88 (38-174) U/L Total Protein 6.6 (6.5-8.0) g/dL Albumin 3.7 (3.5-5.0) g/dL TSH 1.39 (0.32-4.0) uIU/mL Independent Historian Clinical information obtained from an independent historian. History obtained from or confirmed by: Spouse Prescription Management I considered prescription management with: Antibiotic (no evidence of infection) Chronic Conditions Patient?s care impacted by: Diabetes and Hypertension Social Determinants Patient?s care significantly limited by Social Determinants of Health including: Low income Discharge Plan Discharge Clinical Impression: Myalgia Patient Disposition: Home, Self-Care Instructions: Musculoskeletal Pain (ED) Prescriptions: New meloxicam 7.5 mg tablet 7.5 mg PO DAILY Qty: 14 0RF No Action budesonide-formoterol [Symbicort] 160-4.5 mcg/actuation HFA aerosol inhaler 2 puff inhalation BID Qty: 10.2 11RF furosemide 20 mg tablet 20 mg PO DAILY Qty: 90 3RF spironolactone 25 mg tablet 25 mg PO DAILY Qty: 90 3RF Farxiga 10 mg tablet 10 mg PO DAILY Qty: 90 3RF Entresto 49-51 mg tablet 1 tab PO BID 90 Days Qty: 180 3RF albuterol sulfate 90 mcg/actuation HFA aerosol inhaler 1 inh inhalation QID PRN (Reason: Shortness Of Breath Or Wheezing) cyclobenzaprine 10 mg tablet 10 mg PO Q8H PRN (Reason: Muscle spasm) Qty: 14 0RF multivitamin Tablet 1 tab PO DAILY sertraline 25 mg Tablet 25 mg PO DAILY carvedilol 12.5 mg tablet 18.75 mg PO BID hydrocodone-acetaminophen 5-325 mg tablet 1 tab PO Q4-6H PRN (Reason: pain) Qty: 30 0RF Rx Instructions: Partial Fill upon patient request. omega-3 fatty acids 1,000 mg capsule 1,000 mg PO BID atorvastatin [Lipitor] 80 mg tablet 80 mg PO DAILY metformin 500 mg tablet 1,000 mg PO BID Referrals: Farrah Jackson DO [Primary Care Provider] - 1 week Print Language: Indian
[2024-05-24 11:34] LABS: TSH reflex Free T4 1.39 uIU/mL (0.32-4.0)
[2024-05-24] MEDS: Ketorolac Tromethamine 60 MG/2 ML VIAL IM (11:37)
--- NOTE | 2024-05-24 11:40 | PC.NURSE ---
pt c/o 06/03 bilateral leg pain - medication administered per provider order. effectiveness pending.
[2024-05-24 11:44] LABS: Erythrocyte Sedimentation Rate 10 MM/HR (0-15)
[2024-05-24 14:04] VITALS: BP 126/87; PULSE 81; RESP 16; TEMP 36.6; O2SAT 99
[2024-05-25 09:58] LABS: CRP High Sensitivity 12.6 mg/L
== END 2024-05-24 14:05 | disposition home or self-care (01) ==
PROVIDERS: Emergency Provider Emergency Medicine; PCP Family Medicine
DX: M79.10 Myalgia, unspecified site (principal); Z79.899 Other long term (current) drug therapy
CPT/HCPCS: 36415; 80053; 82550; 84443; 85025; 85652; 86141; 96372; 99284; J1885

== ENCOUNTER 2024-06-07 12:14 | Outpatient (REF) | payer OTHER, SELFPAY ==
--- NOTE | ~2024-06-07 | XR_ITS ---
EXAMINATION: Bilateral hip series CLINICAL INFORMATION: Bilateral hip pain COMPARISON: None. TECHNIQUE: 2 views of each hip FINDINGS: Right hip: Hip joint surrounding bone and soft tissues are normal. Left hip: Hip joint and surrounding bone and soft tissues are normal. XR/XR hip RT min 2V IMPRESSION: RIGHT HIP: Normal. LEFT HIP: Normal.
--- NOTE | ~2024-06-07 | XR_ITS ---
EXAMINATION: Bilateral knee series CLINICAL INFORMATION: Bilateral knee pain COMPARISON: None. TECHNIQUE: 4 views of each knee FINDINGS: Right knee: The bone and joints are normal without joint space narrowing No effusion. Arterial calcification present. Surrounding soft tissues normal. Left knee: The bone and joints are normal without joint space narrowing no effusion. Arterial calcification. XR/XR knee LT 4V IMPRESSION: RIGHT KNEE: No acute abnormality or arthrosis Calcific atherosclerotic disease LEFT KNEE: No acute abnormality or arthrosis. Calcific atherosclerotic disease.
--- NOTE | ~2024-06-07 | XR_ITS ---
EXAMINATION: XR LUMBOSACRAL SPINE CLINICAL INFORMATION: Pain. COMPARISON: CT abdomen/pelvis dated 10/02/2017. TECHNIQUE: Three views of the lumbosacral spine. FINDINGS: Normal vertebral body alignment. The lumbar lordosis is maintained. No acute fracture or subluxation. No loss of vertebral body height. Loss of intervertebral disc height at L5-S1 as well as to a lesser degree at L4-L5 with degenerative endplate changes, increased when compared to the prior CT. No concerning lytic or blastic osseous lesion. No abnormal soft tissue calcification. XR/XR lumbar spine 2-3V IMPRESSION: [id number] degenerative disc disease at L5-S1 with more mild degenerative disc disease at L4-L5, increased when compared to the prior CT.
--- NOTE | ~2024-06-07 | XR_ITS ---
EXAMINATION: Bilateral knee series CLINICAL INFORMATION: Bilateral knee pain COMPARISON: None. TECHNIQUE: 4 views of each knee FINDINGS: Right knee: The bone and joints are normal without joint space narrowing No effusion. Arterial calcification present. Surrounding soft tissues normal. Left knee: The bone and joints are normal without joint space narrowing no effusion. Arterial calcification. XR/XR knee RT 4V IMPRESSION: RIGHT KNEE: No acute abnormality or arthrosis Calcific atherosclerotic disease LEFT KNEE: No acute abnormality or arthrosis. Calcific atherosclerotic disease.
--- NOTE | ~2024-06-07 | XR_ITS ---
EXAMINATION: Bilateral hip series CLINICAL INFORMATION: Bilateral hip pain COMPARISON: None. TECHNIQUE: 2 views of each hip FINDINGS: Right hip: Hip joint surrounding bone and soft tissues are normal. Left hip: Hip joint and surrounding bone and soft tissues are normal. XR/XR hip LT min 2V IMPRESSION: RIGHT HIP: Normal. LEFT HIP: Normal.
== END 2024-06-07 12:15 | disposition home or self-care (01) ==
LOC: HO.HHCX 12:14
PROVIDERS: Visit Provider Family Medicine
DX: M79.604 Pain in right leg (principal); M79.605 Pain in left leg; M25.551 Pain in right hip; M25.552 Pain in left hip
CPT/HCPCS: 72100; 73502; 73564

== ENCOUNTER 2024-06-10 09:48 | Emergency (ER) | payer OTHER, SELFPAY ==
[2024-06-10] VITALS (10 sets, daily range): BP systolic 102–149; BP diastolic 63–99; PULSE 72–98; RESP 15–22; TEMP 36.4–37.2; O2SAT 93–100; BMI 24.3
--- NOTE | ~2024-06-10 | CT_ITS ---
EXAMINATION: CT abdomen pelvis w IV con CLINICAL INFORMATION: Reason for Exam groin pain lymphadenopathy severe hip pain COMPARISON: Prior CT 06/10/2024 TECHNIQUE: Multidetector volumetric imaging was performed from the superior aspect of the liver through the pubic symphysis 100 mL of Omnipaque 350 injected Sagittal and coronal reformatted images were obtained on the technologist's workstation. This CT examination was performed using dose optimization techniques as appropriate, variously including the following: *Automated exposure control *Adjustment of mA and/or kV according to patient size (this includes techniques or standardized protocols for targeted exams where dose is matched to indication/reason for exam; i.e. extremities or head) *Use of iterative reconstruction technique DLP: 576 mGy-cm FINDINGS: LOWER THORAX: Included lung bases are clear. HEPATOBILIARY: Heterogeneous liver lesion in the right lobe of the liver measures 5.8 x 2.7 cm exhibits peripheral nodular enhancement, although nonspecific most likely a cavernous hemangioma, newly found to today's exam. Similar lesion involving the dome of the liver measure about 2 cm, This has been seen on prior ultrasound from 2020 however appear larger on CT scan. GALLBLADDER: There are multiple gallstones. SPLEEN: Spleen is normal in size. PANCREAS: No focal mass or ductal dilatation. STOMACH AND GASTROINTESTINAL TRACT: Stomach is grossly unremarkable. There is no bowel distention or thickening. There is heavy is diverticulosis without CT evidence of acute diverticulitis. There are several small appendicoliths, the appendix is borderline dilated measure up to 7.5 mm, cannot rule out mild or chronic subclinical appendicitis. Michael image. ADRENALS: Hypertrophy of left adrenal, no adrenal nodule or mass. KIDNEYS/URETERS: No hydronephrosis, stones or solid mass lesions. URINARY BLADDER: Partially decompressed. PELVIC VISCERA: Unremarkable PERITONEUM: No free air or fluid. LYMPH NODES: No lymphadenopathy. VASCULAR:Filling defects found in the right and left common femoral veins concerning for partially occlusive thrombus versus a flow artifact. BONES, ABDOMINAL WALL AND SOFT TISSUES: Age-appropriate changes of the spine and skeletal system, no destructive osteolytic or osteosclerotic bone lesion found CT/CT abdomen pelvis w IV con IMPRESSION: 1. There are several appendicoliths, the appendix is borderline dilated measure up to 7.5 mm, cannot rule out mild or chronic subclinical appendicitis. Michael image. Surgical evaluation is warranted. 2. There are 2 liver lesions, the larger lesion in the right lobe of the liver measures up to 5.8 cm, exhibits peripheral nodular enhancement, although nonspecific most likely cavernous hemangioma, the smaller lesion near the dome of the liver was previously seen on ultrasound and correlate with hemangioma. If patient is high-risk with recommend follow-up ultrasound. 3. Suspicion for DVT, Filling defects in the right and left common femoral veins concerning for partially occlusive thrombus versus flow artifact. Consider correlation with follow-up venous Doppler ultrasound. 4. Cholelithiasis. 4. Heavy diverticulosis without CT evidence of acute diverticulitis. (Referring physician staff is being called, by physician staff assistance, to be alerted of the above critical findings and recommendations.) A J 06/10/2024 12:51 PM
--- NOTE | ~2024-06-10 | CT_ITS ---
EXAMINATION: CT ANGIOGRAM OF THE CHEST WITH CONTRAST (CT PULMONARY ANGIOGRAM FOR PE) CLINICAL INFORMATION: Reason for Exam suspect PE, dizziness COMPARISON: 12/08/2021 TECHNIQUE: Multidetector volumetric imaging was performed from the thoracic inlet to below the diaphragms following the administration of 65 mL Omnipaque 350 intravenous contrast. No contrast reaction reported Sagittal, coronal, and MIP oblique sagittal reformatted images were obtained on the CT workstation, uploaded to PACS, and reviewed. This CT examination was performed using dose optimization techniques as appropriate, variously including the following: *Automated exposure control *Adjustment of mA and/or kV according to patient size (this includes techniques or standardized protocols for targeted exams where dose is matched to indication/reason for exam; i.e. extremities or head) *Use of iterative reconstruction technique Total exam dose-length product 1086 mGy-cm FINDINGS: QUALITY OF STUDY/CONTRAST BOLUS: Satisfactory. PULMONARY ARTERIES: No pulmonary emboli. Main pulmonary artery is dilated to 3.5 cm, consistent with elevated pulmonary arterial pressure. THORACIC AORTA: No aneurysm. LUNG: Status post partial left upper lobectomy. Mild dependent atelectasis in the right lower lobe. Central airways are clear. No consolidation. No pulmonary nodules. PLEURA: No pleural effusion or pneumothorax. MEDIASTINUM: Left pectoral pacemaker with leads terminating in the right atrium and ventricle. Atherosclerotic calcifications are present in the coronary arteries. No pericardial effusion. Left ventricular dilatation. No hilar or mediastinal lymphadenopathy. No evidence of septal bowing or right heart strain. Small pericardial effusion. CORONARY ARTERY CALCIFICATION: Present CHEST WALL/AXILLA: No axillary or internal mammary lymphadenopathy. OSSEOUS STRUCTURES: Diffuse idiopathic skeletal hyperostosis (DISH). No fractures. UPPER ABDOMEN: Cholelithiasis is partially seen.. No reflux of contrast into the hepatic veins to suggest elevated right heart pressures. CT/CT angio chest PE protocol IMPRESSION: 1. No acute pulmonary findings. No evidence of pulmonary emboli. 2. Dilated main pulmonary vein as can be seen with elevated pulmonary pressures. Left ventricular dilatation. Small pericardial effusion. 3. Cholelithiasis. VTE: negative.
--- NOTE | ~2024-06-10 | CT_ITS ---
EXAMINATION: CT HEAD WITHOUT CONTRAST CLINICAL INFORMATION: 63-year-old male with confusion, dizziness. COMPARISON: None available. TECHNIQUE: Contiguous axial imaging was performed from the skull base to vertex without intravenous administration of contrast. This CT examination was performed using dose optimization techniques as appropriate, variously including the following: *Automated exposure control *Adjustment of mA and/or kV according to patient size (this includes techniques or standardized protocols for targeted exams where dose is matched to indication/reason for exam; i.e. extremities or head) *Use of iterative reconstruction technique DLP: 652.67 mGy-cm (after acquisition of topogram) FINDINGS: No evidence of intracranial hemorrhage, extra-axial surface collection, focal mass effect or midline shift. The ventricles have normal size and configuration. No hydrocephalus. The strong-white matter degeneration is maintained. No evidence of an acute major vascular territory infarction. The brainstem and cerebellum are unremarkable. The cerebellar tonsils are in normal position. Calvarium is intact. Mild mucosal thickening of the inferior left maxillary sinus and no air-fluid levels within paranasal sinuses. The mastoid air cells are well aerated. The orbits and temporomandibular joints are normal. CT/CT head/brain wo IV con IMPRESSION: No acute intracranial pathology.
--- NOTE | ~2024-06-10 | US_ITS ---
EXAMINATION: US VENOUS ULTRASOUND WITH DOPPLER LOWER EXTREMITY, BILATERAL CLINICAL INFORMATION: groin pain, abnormal CT scan rule out DVT COMPARISON: 02/18/2022 TECHNIQUE: Ultrasound of the deep veins is performed from the hip to the calf with compression sonography and color and pulse Doppler assessment. Spectral analysis with color-flow imaging is performed. FINDINGS: RIGHT: There is normal venous compression and respiratory variation and augmented flow. The visualized common femoral vein, superficial femoral vein, profunda femoral vein, popliteal vein, and the trifurcation region shows no evidence of deep venous thrombosis. Slow flow is appreciated within the common femoral vein through the popliteal vein. There is no significant popliteal fossa cyst. LEFT: There is normal venous compression and respiratory variation and augmented flow. The visualized common femoral vein, superficial femoral vein, profunda femoral vein, popliteal vein, and the trifurcation region shows no evidence of deep venous thrombosis. Slow flow is appreciated within the common femoral vein through the popliteal vein. There is no significant popliteal fossa cyst. If the patient's symptoms persist, followup ultrasound in 5 days 7 days might be of value to exclude proximal propagation from a non-visualized calf vein. US/US venous duplex LE BI IMPRESSION: No DVT demonstrated in the bilateral lower extremity.
--- NOTE | 2024-06-10 09:53 | ED_ITS ---
HPI - Extremity Problem General Chief complaint: Extremity Injury, Lower Stated complaint: UPPER LEG PAIN Source: patient, family, EMS and old records reviewed Mode of arrival: EMS Limitations: no limitations History of Present Illness ED Provider: CRISTIAN GALO Narrative: 63 yo male with PMH of DM2, NICM s/p ACID EF 20-25%, HTN, HLD, COPD, MARVA, carcinoid tumor, just seen here for leg pain on 05/24 neg labs ESR , CPK TSH sent home on meloxicam back again today with c/o recent dental extraction on Wednesday and was given gabapentin and baclofen but he states he feels it makes his chronic hip pain worse. He has pain at rest and while walking pain is in both hips around the front and back. No known trauma. Prior this starting he denies trauma, tick bites, travel. He notes no fevers, urinary symptoms, rash. He thinks the recent baclofen and gabapenting made the much worse and it chris now. No discoloration to the feet and the feet are not cold MD Complaint: joint pain Onset (ago): month(s) (few) Pain Consistency: intermittent Location: left, right and lower extremity Quality: other (throbbing) Radiation: distal Relieving factors: immobilization Exacerbating factors: range of motion, weight bearing, walking, exertion and palpation Associated symptoms: denies other symptoms Related Data Home Medications ?Medication ?Instructions ?Recorded ?Confirmed atorvastatin 80 mg tablet (Lipitor) 80 mg PO DAILY 08/20/20 05/03/24 metformin 500 mg tablet 1,000 mg PO BID 08/20/20 05/03/24 omega-3 fatty acids 1,000 mg 1,000 mg PO BID 08/20/20 05/03/24 capsule albuterol sulfate 90 mcg/actuation 1 inh inhalation QID PRN Shortness 11/22/20 05/03/24 aerosol inhaler Of Breath Or Wheezing carvedilol 12.5 mg tablet 18.75 mg PO BID 05/20/23 05/03/24 multivitamin 1 tab PO DAILY 05/20/23 05/03/24 sertraline 25 mg tablet 25 mg PO DAILY 05/20/23 05/03/24 Previous Rx's ?Medication ?Instructions ?Recorded budesonide-formoterol HFA 160 2 puff inhalation BID #10.2 grams 08/18/21 mcg-4.5 mcg/actuation aerosol inhaler (Symbicort) cyclobenzaprine 10 mg tablet 10 mg PO Q8H PRN Muscle spasm #14 12/08/21 tabs hydrocodone 5 mg-acetaminophen 325 1 tab PO Q4-6H PRN pain #30 tabs 05/25/23 mg tablet furosemide 20 mg tablet 20 mg PO DAILY #90 tabs 09/02/23 spironolactone 25 mg tablet 25 mg PO DAILY #90 tabs 09/02/23 dapagliflozin propanediol 10 mg 10 mg PO DAILY #90 tabs 11/18/23 tablet (Farxiga) sacubitril 49 mg-valsartan 51 mg 1 tab PO BID 90 days #180 tabs 04/14/24 tablet (Entresto) meloxicam 7.5 mg tablet 7.5 mg PO DAILY #14 tabs 05/24/24 Allergies Allergy/AdvReac Type Severity Reaction Status Date / Time oxycodone AdvReac Intermediate vomiting, Verified 06/10/24 16:09 delusions Review of Systems 2 Review of Systems: Constitutional : No Fever, No Chills ENT/Mouth : No Ear Pain, No Hoarseness, No sore throat Eyes: No Eye Pain, No Swelling, No Redness, No Foreign Body Cardiovascular : No Chest Pain, No SOB Respiratory : No Cough, No Dyspnea Gastrointestinal : No Nausea, No Vomiting, No Diarrhea, No abdominal Pain Genitourinary : No Dysuria, No Hematuria Musculoskeletal : positive joint pain, pos Myalgias, No Joint Swelling Skin : No Skin lacerations, No rash Neuro : No Weakness, No Numbness, No Loss of Consciousness, No Dizziness, No Headache All other systems reviewed and are negative [facility] Past Medical History Attestation statement: The following information was validated with the patient. Source: old records reviewed Medical History Pacemaker Gout [id number] deficiency Encounter for discussion regarding implantable cardioverter-defibrillator Cardiomyopathy COPD (chronic obstructive pulmonary disease) Essential hypertension PVC (premature ventricular contraction) MARVA (obstructive sleep apnea) Carcinoid tumor High cholesterol Prostate enlargement Diabetes Surgical History History of surgical procedure (~2022) History of prostate surgery Hx of colonoscopy History of bronchoscopy History of lobectomy of lung Family History Family History Son No problems noted. Father No problems noted. Social History Social History Household Members: Spouse Household Members Other:: Alexsandra Housing: House Are you a primary direct care staffer to a significant other at home: No Do you presently have visiting nurse or other home services: No Alcohol intake: never Patient Tobacco Use Status: Never used Tobacco Smoked in Last 30 Days: No Second Hand Smoke Exposure: No Use of substances other than those prescribed or required for medical reasons: No Advance Directives: No Advance Directives Information Provided: No Do you have a plan to hurt others: No Plan service: No Current occupational status: retired 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 Oriented X3. No acute distress. Eyes: Pupils equal, round and reactive to light. ENT: Pharynx normal. Neck: Normal inspection. Neck supple. CVS: Normal heart rate and rhythm. Pulses normal. Respiratory: No respiratory distress. Breath sounds normal. Abdomen: Soft and non-tender. both groins no hernia noted normal exam, bilateral shotty diffuse lymphadenopathy Skin: Skin warm and dry. Normal skin color. Extremities: No lower extremity edema. 2+ DP pulses/PT pulses BCR in toes no discoloration, SILT intact, 2+ fem pulses, no edema, pain with ROM testing Neuro: Oriented X 3. No motor deficit. No sensory deficit. NIH Stroke Scale Internal: Initial- Upon Arrival Level of Consciousness: Alert Level of Consciousness Questions: Answers one question correctly Level of Consciousness Commands: Performs both tasks correctly Best Gaze: Normal Visual: No visual loss Facial Palsy: Normal Motor Arm (Right): No drift Motor Arm (Left): No drift Motor Leg (Right): No drift Motor Leg (Left): No drift Limb Ataxia: Absent Sensory: Normal Best Language: No aphasia Dysarthia: Normal Extinction and Inattention: No abnormality Score: 1 Course Course Course Narrative: 1 hour after oxycodone 45 min after IV contrast acute dizziness room spinning nausea sweating agitated stating he has to pee talked to spouse this has never happened before has had percocet no issues in past, BS 118 moving all extremities cannot tell me the month or the year which states is not totally off baseline, no focal deficits, speech intact, no facial droop. CT head ordered, IV ativan for dizziness, IV zofran unsure if this is med related no hives no resp issues Reevaluation(s) Reevaluation #1: patient is retaining urine rodrigez ordered suspect this dizziness nausea episode was PE CTA ordered 250cc bolus ordered Cr fine Reevaluation #2: if head CT negative will start on lovenox vs heparin persistent nausea and vomiting IV reglan ordered Reevaluation #3: this is not appendicitis clinically has no RLQ pain or GI symptoms Additional Reevaluation(s): sleeping nausea improved back to baseline but still groggy signed out to [place] if he it baseline can be DC home Medications Administered Discontinued Medications Generic Name Dose Route Start Last Admin Trade Name Freq PRN Reason Stop Dose Admin Magnesium Sulfate 2 gm in 50 mls @ 25 mls/hr 06/10/24 11:32 06/10/24 13:41 Magnesium Sulfate/H2o IV 06/10/24 13:31 Infused ONCE ONE Infusion Sodium Chloride 250 mls @ 250 mls/hr 06/10/24 13:07 06/10/24 13:46 Ns IV 06/10/24 14:06 0 mls/hr .Q1H ONE Infusion Iohexol 85 ml 06/10/24 11:40 06/10/24 11:41 Iohexol 350 Mg/Ml 100 Ml Infus..Btl IV 06/10/24 11:41 85 ml ONCE ONE Administration Iohexol 100 ml 06/10/24 13:45 06/10/24 13:46 Iohexol 350 Mg/Ml 100 Ml Infus..Btl IV 06/10/24 13:46 65 ml ONCE ONE Administration Lorazepam 0.5 mg 06/10/24 12:31 06/10/24 12:58 Lorazepam 2 Mg/Ml Vial IVPUSH 06/10/24 12:32 0.5 mg STAT STA Administration Metoclopramide HCl 10 mg 06/10/24 13:11 06/10/24 13:38 Metoclopramide Hcl 10 Mg/2 Ml Vial IVPUSH 06/10/24 13:12 10 mg ONCE ONE Administration Ondansetron HCl 4 mg 06/10/24 12:31 06/10/24 12:42 Ondansetron Hcl 4 Mg/2 Ml Vial IVPUSH 06/10/24 12:32 4 mg ONCE ONE Administration Oxycodone HCl 10 mg 06/10/24 10:17 06/10/24 11:30 Oxycodone Hcl Immed Release 5 Mg Tablet PO 06/10/24 10:18 10 mg ONCE ONE Administration Medical Decision Making Medical Decision Making [facility] Narrative: 63 yo male with PMH of DM2, NICM s/p ACID EF 20-25%, HTN, HLD, COPD, MARVA, carcinoid tumor, just seen here for leg pain on 05/24 neg labs ESR , CPK TSH sent home on meloxicam back again today with c/o atraumatic bilateral groin pain without precipitating event at this time NV intact with bounding pulses both in groin and DP/PT with warm feet and BCR doubt Differential Diagnosis Differential Diagnoses: The differential diagnosis associated with the presentation includes avascular necrosis, mass, strain, viral syndrome, myalgia Admission/Observation Consideration of admission/observation: Escalation of care including admission/observation considered patient is improving suspect that this is due to oxycodone he is rapidly turned around if he is okay at 6pm anticipate DC home Lab Data [facility] Lab Attestation statement: I reviewed the patient's lab results. 06/10/24 10:37 06/10/24 11:00 Labs: Lab Results 06/10/24 06/10/24 06/10/24 Range/Units 10:37 11:00 11:32 WBC 11.5 H (4.8-10.8) X10*3/uL RBC 4.41 L (4.60-5.80) X10*6/uL Hgb 13.5 L (14.0-18.0) g/dl Hct 40.6 L (42.0-52.0) % MCV 92.1 (80.0-98.0) fL MCH 30.6 (27.0-33.0) pg MCHC 33.3 (31.0-36.0) g/dl RDW 14.6 (11.0-16.0) % Plt Count 219 (160-400) X10*3/uL MPV 9.6 (9.4-12.4) fL Immature Gran % (Auto) 0.5 H (0.0-0.4) % Neut % (Auto) 69.7 (45-73) % Lymph % (Auto) 13.1 L (20-40) % [place] % (Auto) 15.8 H (2-11) % Eos % (Auto) 0.6 (0-4) % Baso % (Auto) 0.3 (0-2) % Lymph # (Auto) 1.5 (1.2-4.9) X10*3/uL [place] # (Auto) 1.8 H (0.1-1.2) X10*3/uL Eos # (Auto) 0.1 (0.0-0.4) X10*3/uL Baso # (Auto) 0.0 (0.0-0.2) X10*3/uL Abs Immat Gran (auto) 0.06 H (0.00-0.03) X10*3/uL Absolute Neuts (auto) 8.0 (2.0-8.3) x10*3/uL Absolute Nucleated RBC 0.000 (0.0-0.012) X10*3/uL Nucleated RBC % (auto) 0.0 (0.0-0.2) /100WBC Smear Tech's Comments VERIFIED PT (11.1-13.3) SEC INR (0.9-1.1) APTT (26.0-36.8) SEC Sodium 142 (135-145) mmol/L Potassium 3.3 (3.3-5.1) mmol/L Chloride 108 (96-108) mmol/L Carbon Dioxide 23 (22-29) mmol/L Anion Gap 14 (12-20) BUN 10 (9-16) mg/dL Creatinine 0.71 (0.5-1.4) mg/dL Estim Creat Clear Calc 96.9 Estimated GFR > 60 POC Glucose (60-115) mg/dL Random Glucose 118 H (60-115) mg/dL Calcium 9.3 (8.4-10.2) mg/dL Magnesium 1.4 L* (1.6-2.6) mg/dL Total Bilirubin 1.3 H (0.0-1.0) mg/dL Direct Bilirubin 0.4 (0.0-0.5) mg/dL AST 19 (5-37) U/L ALT 13 (0-40) U/L Alkaline Phosphatase 52 (39-117) U/L Total Creatine Kinase 69 (38-174) U/L Troponin I High Sens 15.5 (<3.5-35.0) ng/L C-Reactive Protein 7.14 H (< or = 0.50) mg/dL B-Natriuretic Peptide 457 H (<100) pg/mL Total Protein 6.8 (6.5-8.0) g/dL Albumin 3.5 (3.5-5.0) g/dL Urine Color Yellow Urine Appearance Clear Urine pH 6.0 (5.0-9.0) Ur Specific [place] 1.020 (1.005-1.025) Urine Protein Negative (Neg-Trace) mg/dL Urine Glucose (UA) >=1000 H (Negative) mg/dL Urine Ketones Trace (Negative) mg/dL Urine Blood Negative (Negative) Urine Nitrite Negative (Negative) Ur Leukocyte Esterase Negative (Negative) Urine RBC 0-2 (0-2) /HPF Urine WBC 0-5 (0-5) /HPF Ur Squamous Epith Cells 0-2 (0-2) /HPF Urine Bacteria Trace (None Seen) Hyaline Casts 0-2 (0-2) /LPF Urine Yeast Present 06/10/24 06/10/24 Range/Units 12:18 13:16 WBC (4.8-10.8) X10*3/uL RBC (4.60-5.80) X10*6/uL Hgb (14.0-18.0) g/dl Hct (42.0-52.0) % MCV (80.0-98.0) fL MCH (27.0-33.0) pg MCHC (31.0-36.0) g/dl RDW (11.0-16.0) % Plt Count (160-400) X10*3/uL MPV (9.4-12.4) fL Immature Gran % (Auto) (0.0-0.4) % Neut % (Auto) (45-73) % Lymph % (Auto) (20-40) % Wilcox % (Auto) (2-11) % Eos % (Auto) (0-4) % Baso % (Auto) (0-2) % Lymph # (Auto) (1.2-4.9) X10*3/uL [place] # (Auto) (0.1-1.2) X10*3/uL Eos # (Auto) (0.0-0.4) X10*3/uL Baso # (Auto) (0.0-0.2) X10*3/uL Abs Immat Gran (auto) (0.00-0.03) X10*3/uL Absolute Neuts (auto) (2.0-8.3) x10*3/uL Absolute Nucleated RBC (0.0-0.012) X10*3/uL Nucleated RBC % (auto) (0.0-0.2) /100WBC Smear Tech's Comments PT 15.7 H (11.1-13.3) SEC INR 1.3 H (0.9-1.1) APTT 36.7 (26.0-36.8) SEC Sodium (135-145) mmol/L Potassium (3.3-5.1) mmol/L Chloride (96-108) mmol/L Carbon Dioxide (22-29) mmol/L Anion Gap (12-20) BUN (9-16) mg/dL Creatinine (0.5-1.4) mg/dL Estim Creat Clear Calc Estimated GFR POC Glucose 117 H (60-115) mg/dL Random Glucose (60-115) mg/dL Calcium (8.4-10.2) mg/dL Magnesium (1.6-2.6) mg/dL Total Bilirubin (0.0-1.0) mg/dL Direct Bilirubin (0.0-0.5) mg/dL AST (5-37) U/L ALT (0-40) U/L Alkaline Phosphatase (39-117) U/L Total Creatine Kinase (38-174) U/L Troponin I High Sens (<3.5-35.0) ng/L C-Reactive Protein (< or = 0.50) mg/dL B-Natriuretic Peptide (<100) pg/mL Total Protein (6.5-8.0) g/dL Albumin (3.5-5.0) g/dL Urine Color Urine Appearance Urine pH (5.0-9.0) Ur Specific [place] (1.005-1.025) Urine Protein (Neg-Trace) mg/dL Urine Glucose (UA) (Negative) mg/dL Urine Ketones (Negative) mg/dL Urine Blood (Negative) Urine Nitrite (Negative) Ur Leukocyte Esterase (Negative) Urine RBC (0-2) /HPF Urine WBC (0-5) /HPF Ur Squamous Epith Cells (0-2) /HPF Urine Bacteria (None Seen) Hyaline Casts (0-2) /LPF Urine Yeast Independent Interpretation I performed an independent interpretation of an: EKG, Ultrasound (no DVT suspect error in CT scan) and CT Scan (doubt appendicitis has no abdominal pain, no PE) Interpretation: Rate: 95 Rhythm: NSR [place]: left Normal P waves. Normal MORALES. Normal QRS complex. ST T wave : no SHERI, nonspecific ST T wave changes lateral leads qTC: 477 prior studies: no acute ischemia ?limb lead The study has been interpreted contemporaneously by me. EKG#2 Rate: 94 Rhythm: NSR with PVC [place]: left Normal P waves. Normal MORALES. Normal QRS complex. ST T wave : nonspecific ST T wave changes lateral leads, no SHERI qTC: 475 prior studies: no acute ischemia The study has been interpreted contemporaneously by me. . Radiology Impression Discussion of test interpretation with radiology: I have reviewed the radiologist's reading. Independent Historian Clinical information obtained from an independent historian. History obtained from or confirmed by: Spouse and EMS External Record Review External record reviewed: Inpatient record Critical Care Time Critical Care Time Critical Care Time: Yes Total Critical Care Time: 60 Attestation: repeat assessments, bedside intervention of acute change, IV magnesium, repeat testing, discussions with spouse I attest to this time spent taking care of the patient Discharge Plan Discharge Clinical Impression: Hypomagnesemia, Bilateral groin pain, Nausea & vomiting, Adverse drug reaction, Acute urinary retention Patient Disposition: Still a Patient Instructions: Acute Nausea and Vomiting (ED), Dizziness (ED), Hypomagnesemia (ED), Urinary Retention in Men (ED) Additional Instructions: return for fevers, vomiting, confusion, chest pain or any other concerns no blood clots magnesium was low we replaced it you had a reaction to oxycodone avoid in the future would repeat your kidney function with your doctor by Wednesday given contrast in the ED stay with responsible adult tonight no alcohol for the next 48 hours if rodrigez catheter stays in remove on Wednesday or Wednesday with your doctor or urologist if rodrigez catheter comes out before discharge return back to the ED if you cannot urinate in 6 to 8 hours Prescriptions: No Action budesonide-formoterol [Symbicort] 160-4.5 mcg/actuation HFA aerosol inhaler 2 puff inhalation BID Qty: 10.2 11RF furosemide 20 mg tablet 20 mg PO DAILY Qty: 90 3RF spironolactone 25 mg tablet 25 mg PO DAILY Qty: 90 3RF Farxiga 10 mg tablet 10 mg PO DAILY Qty: 90 3RF Entresto 49-51 mg tablet 1 tab PO BID 90 Days Qty: 180 3RF albuterol sulfate 90 mcg/actuation HFA aerosol inhaler 1 inh inhalation QID PRN (Reason: Shortness Of Breath Or Wheezing) cyclobenzaprine 10 mg tablet 10 mg PO Q8H PRN (Reason: Muscle spasm) Qty: 14 0RF multivitamin Tablet 1 tab PO DAILY sertraline 25 mg Tablet 25 mg PO DAILY carvedilol 12.5 mg tablet 18.75 mg PO BID hydrocodone-acetaminophen 5-325 mg tablet 1 tab PO Q4-6H PRN (Reason: pain) Qty: 30 0RF Rx Instructions: Partial Fill upon patient request. meloxicam 7.5 mg tablet 7.5 mg PO DAILY Qty: 14 0RF omega-3 fatty acids 1,000 mg capsule 1,000 mg PO BID atorvastatin [Lipitor] 80 mg tablet 80 mg PO DAILY metformin 500 mg tablet 1,000 mg PO BID Print Language: Ivorian
[2024-06-10 10:44] LABS: Basophils Percent Auto 0.3 % (0-2); Eosinophils Absolute Auto 0.1 X10*3/uL (0.0-0.4); Eosinophils Percent Auto 0.6 % (0-4); Hematocrit 40.6 % (42.0-52.0); Hemoglobin 13.5 g/dl (14.0-18.0); Imm Gran Abs Auto 0.06 X10*3/uL (0.00-0.03); Imm Gran Pct Auto 0.5 % (0.0-0.4); Lymphocytes Absolute Auto 1.5 X10*3/uL (1.2-4.9); Lymphocytes Percent Auto 13.1 % (20-40); MANUAL DIFF FLAG SCAN; Mean Corpuscular HGB Conc 33.3 g/dl (31.0-36.0); Mean Corpuscular Hemoglobin 30.6 pg (27.0-33.0); Mean Corpuscular Volume 92.1 fL (80.0-98.0); Mean Platelet Volume 9.6 fL (9.4-12.4); Monocytes Absolute Auto 1.8 X10*3/uL (0.1-1.2); Monocytes Percent Auto 15.8 % (2-11); Neutrophils Percent Auto 69.7 % (45-73); Platelet Count 219 X10*3/uL (160-400); Red Blood Count 4.41 X10*6/uL (4.60-5.80); Red Cell Distribution Width 14.6 % (11.0-16.0); SCAN SMEAR FLAG 1; White Blood Count 11.5 X10*3/uL (4.8-10.8)
[2024-06-10 11:05] LABS: SLIDE REVIEW VERIFIED
[2024-06-10] MEDS: oxyCODONE HCl Immed Release 5 MG TABLET 10 MG PO (11:30)
[2024-06-10 11:31] LABS: Alanine Aminotransferase 13 U/L (0-40); Albumin Level 3.5 g/dL (3.5-5.0); Alkaline Phosphatase 52 U/L (39-117); Anion Gap 14 (12-20); Aspartate Amino Transferase 19 U/L (5-37); Bilirubin Direct 0.4 mg/dL (0.0-0.5); Bilirubin Total 1.3 mg/dL (0.0-1.0); Blood Urea Nitrogen 10 mg/dL (9-16); C Reactive Protein 7.14 mg/dL (< or = 0.50); Calcium 9.3 mg/dL (8.4-10.2); Carbon Dioxide 23 mmol/L (22-29); Chloride 108 mmol/L (96-108); Creatinine Clr Calc Pharmacy 96.9; Estimated Glomerular Filt Rate > 60; Glucose Random 118 mg/dL (60-115); Magnesium 1.4 mg/dL (1.6-2.6); Potassium 3.3 mmol/L (3.3-5.1); Sodium 142 mmol/L (135-145); Total Protein 6.8 g/dL (6.5-8.0)
[2024-06-10 11:41] LABS: Appearance Urine Clear; Color Urine Yellow; Glucose Urine UA >=1000 mg/dL (Negative); Leukocyte Esterase Urine Negative (Negative); Nitrite Urine Negative (Negative); UMIC TRIGGER UACC YES; Urine Blood Negative (Negative); Urine Ketones Trace mg/dL (Negative); Urine Protein Negative (Neg-Trace)
[2024-06-10] MEDS: iohexoL 350 MG/ML 100 ML INFUS..BTL 85 ML IV (11:41)
[2024-06-10] MEDS: Magnesium Sulfate/H2O 2 GM/50 ML PIGGYBACK IV (11:44)
[2024-06-10 11:58] LABS: Bacteria Urine Trace (None Seen); Hyaline Casts Urine 0-2 /LPF (0-2); RBC Urine 0-2 /HPF (0-2); Squamous Epithelial Cell Urine 0-2 /HPF (0-2); WBC Urine 0-5 /HPF (0-5)
--- NOTE | 2024-06-10 12:19 | ECG_ITS ---
Test Reason : dizziness Blood Pressure : / mmHG Vent. Rate : 095 BPM Atrial Rate : 095 BPM P-R Int : 128 ms QRS Dur : 098 ms QT Int : 380 ms P-R-T Axes : 000 191 153 degrees QTc Int : 477 ms Poor data quality, interpretation may be adversely affected Normal sinus rhythm Right superior axis deviation Nonspecific ST and T wave abnormality Prolonged QT Abnormal ECG When compared with ECG of 19-DEC-2022 11:25, Premature ventricular complexes are no longer Present QRS axis Shifted left Referred By: Staci Rodriguez Electronically Signed By:VALERIE NI
--- NOTE | 2024-06-10 12:34 | ECG_ITS ---
Test Reason : DIZZINESS Blood Pressure : / mmHG Vent. Rate : 094 BPM Atrial Rate : 094 BPM P-R Int : 132 ms QRS Dur : 098 ms QT Int : 380 ms P-R-T Axes : 046 -13 049 degrees QTc Int : 475 ms Sinus rhythm with occasional Premature ventricular complexes Minimal voltage criteria for LVH, may be normal variant ( R in aVL ) Nonspecific ST abnormality Abnormal ECG When compared with ECG of 10-JUN-2024 12:22, Premature ventricular complexes are now Present QRS axis Shifted right ST now depressed in Lateral leads Referred By: Staci Rodriguez Electronically Signed By:VALERIE NI
--- NOTE | 2024-06-10 12:40 | PC.NURSE ---
pt began co dizziness, had difficulty answering orientation questions, reports nausea. MD Rodriguze at bedside, called loading unit operator crimping to better communicate with pt. pt remains to have difficulty answering questions, reports he knows who the president is but could not give a name. zofran given VO and EKG completed immediately. otherwise neuros intact ILDA strength noted.
[2024-06-10] MEDS: ondansetron HCL 4 MG/2 ML VIAL IVPUSH (12:42)
[2024-06-10] MEDS: LORazepam 2 MG/ML VIAL 0.5 MG IVPUSH (12:58)
[2024-06-10 13:18] LABS: Glucose, Whole Blood 117 mg/dL (60-115)
[2024-06-10 13:26] LABS: INTERNATIONAL NORM RATIO 1.3 (0.9-1.1); Prothrombin Time 15.7 SEC (11.1-13.3)
[2024-06-10 13:29] LABS: Partial Thromboplastin Time 36.7 SEC (26.0-36.8)
[2024-06-10] MEDS: Metoclopramide HCl 10 MG/2 ML VIAL IVPUSH (13:38)
[2024-06-10] MEDS: 0.9 % Sodium Chloride 250 ML IV (13:42)
[2024-06-10 13:43] LABS: B Type Natriuretic Peptide 457 pg/mL (<100)
[2024-06-10] MEDS: iohexoL 350 MG/ML 100 ML INFUS..BTL IV (13:46)
[2024-06-10 14:21] LABS: Troponin-I High Sensitivity 15.5 ng/L (<3.5-35.0)
--- NOTE | 2024-06-10 18:16 | PC.NURSE ---
pt alert and oriented to baseline, pt requested to have the catheter removed prior to his discharge from the ED. pt educated and returned education to this RN about follow up with his PCP as well as return to the emergency department if he is unable to urinate in the next 6-8 hours.
[2024-06-10] MEDS: Acetaminophen 325 MG TABLET 975 MG PO (19:23)
[2024-06-10] MEDS: LORazepam 1 MG TABLET PO (19:24)
[2024-06-10] MEDS: Ketorolac Tromethamine 30 MG/ML VIAL IM (19:26)
--- NOTE | 2024-06-10 19:32 | PC.NURSE ---
this rn assumed care of pt, pt a&ox4, respirations even and unlabored. pt reporting 9/10 upper leg pain and burning. pt medicated per dec, tolerated well with water.
--- NOTE | 2024-06-10 20:25 | PC.NURSE ---
pt attempted to ambulate with walker at this time, pt unable to follow directions to stand or hold on to walker, pt appeared confused with direction. at bedside assessing pt. pt helped back into hospital stretcher.
--- NOTE | 2024-06-10 20:31 | PC.NURSE ---
pourer buggy ladle at bedside. pt at this time, is only alert to self. pt is unable to state where he is, states it is 1985. aware of mental status change, no new orders at this time.
[2024-06-10 21:21] LABS: Glucose, Whole Blood 124 mg/dL (60-115)
[2024-06-11] VITALS: BP 114/74; PULSE 66; RESP 16; TEMP 36.4; O2SAT 97
[2024-06-11 02:00] VITALS: BP 121/78; PULSE 69; RESP 16; TEMP 37; O2SAT 96
--- NOTE | 2024-06-11 03:26 | PC.NURSE ---
pt awake and alert at this time. pt is alert to self and that he is at [facility] [place]. pt states it is 1976. 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
[2024-06-11 04:20] VITALS: BP 187/53; PULSE 56; RESP 20
[2024-06-11 04:37] VITALS: BP 142/94; PULSE 87; RESP 18; TEMP 36.1; O2SAT 97
--- NOTE | 2024-06-11 04:51 | PC.NURSE ---
Addendum entered by Lor De Los Santos RN 06/11/24 06:39: Pt having difficulty voiding. Bladder scanned at 0615 for 366mL. ED called and spoke with Dr Romero to report findings. Per MD pt had rodrigez earlier in the ED but requested it be removed. Dr Romero to order Flomax, ok to administer once verified by pharmacy. Original Note: Pt A&O x2, knows he is at the [facility] but unsure where he is in the hospital. Pt re-oriented and seems to understand this RN in Yoruba pretty well. Pt asking to leave light on as he wants to call his family. VSS. Pt having difficulty urinating. States he was urinating fine when he came in and it has become harder to void after given medications. Pt states he has the urge to void, attempted to use the urinal but unable to void. Will bladder scan. Bed alarm engaged. Call samuel within reach. Pt able to make his needs known at this time.
[2024-06-11 08:00] VITALS: BP 147/99; PULSE 99; RESP 16; TEMP 36.4; O2SAT 97
[2024-06-11] MEDS: Tamsulosin HCL 0.4 MG CAPSULE PO (09:09)
--- NOTE | 2024-06-11 10:35 | MHC.CM.ED ---
Received case management consult overnight. Came to the ER due to leg pain. Physical therapy eval is ordered but not available before Wednesday. Met with patient in regards to discharge planning. Patient lives with his , ambulates independently and had no services prior to coming to the hospital. PCP verified. Patient states his leg pain is better and he would prefer to d/c home. Patient denies the need for outpatient PT or home services. Dipti RIOJAS made aware. Continue to monitor for d/c needs.
[2024-06-11 10:36] LABS: COVID-19 Test Negative (Negative); IDNOW Serial# 08D9AD1C
--- NOTE | 2024-06-11 10:38 | PC.NURSE ---
Patient able to void in urinal, no cath needed at this time.
[2024-06-11 11:53] VITALS: BP 147/99; PULSE 99; RESP 16; TEMP 36.4; O2SAT 97
[2024-06-14 12:54] LABS: Lyme Abs Screen <0.90 index
== END 2024-06-11 11:56 | disposition home or self-care (01) ==
PROVIDERS: Emergency Medicine; Physician Assistant; Emergency Provider Emergency Medicine; PCP Family Medicine
DX: E83.42 Hypomagnesemia (principal); R10.32 Left lower quadrant pain; R10.31 Right lower quadrant pain; R11.2 Nausea with vomiting, unspecified; R42 Dizziness and giddiness; R45.1 Restlessness and agitation; T40.2X5A Adverse effect of other opioids, initial encounter; Y92.230 Patient room in hospital as the place of occurrence of the external cause; R33.9 Retention of urine, unspecified; M79.605 Pain in left leg; M79.604 Pain in right leg; M79.10 Myalgia, unspecified site; R29.701 NIHSS score 1; E11.9 Type 2 diabetes mellitus without complications; I10 Essential (primary) hypertension; E78.00 Pure hypercholesterolemia, unspecified; J44.9 Chronic obstructive pulmonary disease, unspecified; Z79.02 Long term (current) use of antithrombotics/antiplatelets; Z79.899 Other long term (current) drug therapy; Z95.0 Presence of cardiac pacemaker; Z11.52 Encounter for screening for COVID-19; Z79.84 Long term (current) use of oral hypoglycemic drugs
CPT/HCPCS: 36415; 51701; 70450; 71275; 74177; 80048; 80076; 81001; 82550; 82947; 83735; 83880; 84484; 85025; 85610; 85730; 86140; 86617; 86618; 87635; 93005; 93970; 96365; 96366; 96372; 96375; 99285; J1885; J2060; J2405; J2765; J3475; Q9967

== ENCOUNTER 2024-06-13 08:22 | Outpatient (REF) | payer OTHER, SELFPAY ==
--- NOTE | ~2024-06-13 | US_ITS ---
EXAMINATION: US ABDOMEN LIMITED CLINICAL INFORMATION: Fatty liver, follow up. COMPARISON: CT abdomen and pelvis 06/10/2024. Ultrasound abdomen complete 07/09/2021 and 03/25/2015. TECHNIQUE: Real-time imaging of the right upper quadrant abdominal viscera. FINDINGS: PANCREAS: Unremarkable LIVER: The liver is normal in size. The liver contour is normal. Increased hepatic echogenicity suggesting hepatic steatosis. Hypoechoic focus right hepatic lobe measuring 1.3 x 1.9 x 1.5 cm. Heterogeneous hyperechoic mildly lobulated focus in the posterior aspect of the right hepatic lobe measuring 3.5 x 4.3 x 4.2 cm. There is no intrahepatic biliary duct dilatation seen. GALLBLADDER: Intraluminal gallbladder calculi. The gallbladder is physiologically distended without evidence of sludge, polyps, wall thickening or pericholecystic fluid. Sonographic Oden sign is negative. COMMON BILE DUCT: Normal in caliber measuring 0.4 cm in diameter. RIGHT KIDNEY: Normal. No hydronephrosis. No renal calculi or focal parenchymal lesions. The kidney measures 11.9 cm in maximum dimension. FREE FLUID: None. US/US abdomen limited IMPRESSION: 1. Hypoechoic focus right hepatic lobe measuring 1.3 x 1.9 x 1.5 cm. Heterogeneous hyperechoic mildly lobulated focus in the posterior aspect of the right hepatic lobe measuring 3.5 x 4.3 x 4.2 cm. If clinically warranted this can be further evaluated with contrast-enhanced MRI. 2. Increased hepatic echogenicity suggesting hepatic steatosis. 3. Cholelithiasis without sonographic evidence of acute cholecystitis. Electronically signed by: Carlyn Cole MD 06/24/2024 11:25 AM EDT
== END 2024-06-13 08:23 | disposition home or self-care (01) ==
LOC: HO.US 08:22
PROVIDERS: PCP Family Medicine; Visit Provider Family Medicine
DX: K76.0 Fatty (change of) liver, not elsewhere classified (principal)
CPT/HCPCS: 76705

== ENCOUNTER 2024-06-19 16:11 | Outpatient (REF) | payer OTHER, SELFPAY | END 2024-06-19 16:12 | disposition home or self-care (01) | LOC: HO.HHCLNP 16:11 | PROVIDERS: Visit Provider General Practice | DX: R39.15 Urgency of urination (principal) | CPT/HCPCS: 87086 ==

== ENCOUNTER → 2024-06-19 23:59 | Outpatient (BNV) | payer OTHER, SELFPAY ==
--- NOTE | 2024-06-21 12:21 | MHC.OFFVIS ---
Intake Visit Reasons: Remote HF monitoring- [employer] Allergies oxycodone Adverse Reaction (Intermediate, Verified 06/10/24 16:09) vomiting, delusions PFSH Medical History Pacemaker Gout Pxate-0-ijkmdncbask deficiency Encounter for discussion regarding implantable cardioverter-defibrillator Cardiomyopathy COPD (chronic obstructive pulmonary disease) Essential hypertension PVC (premature ventricular contraction) MARVA (obstructive sleep apnea) Carcinoid tumor High cholesterol Prostate enlargement Diabetes Surgical History History of surgical procedure (~2022) History of prostate surgery Hx of colonoscopy History of bronchoscopy History of lobectomy of lung Family History Son No problems noted. Father No problems noted. 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 [id number] Cardiac Device Interrogation, cardio physiologic monitor Procedure code (CPT) selection complete Assessment & Plan Assessment & Plan (1) NICM (nonischemic cardiomyopathy): Code(s): I42.8 - Other cardiomyopathies Category: Medical Plan x Coding Level of Care Code Procedure Only Diagnoses NICM (nonischemic cardiomyopathy) I42.8 CPT Codes Cardiac Device Check - Cardiac Device 15: [id number] Cardiac Device Interrogation, cardio physiologic monitor ([id number])
== END ==
PROVIDERS: PCP Family Medicine; Visit Provider Internal Medicine
DX: I42.8 Other cardiomyopathies (principal); Z95.810 Presence of automatic (implantable) cardiac defibrillator
CPT/HCPCS: 93297

== ENCOUNTER 2024-07-18 08:58 | Outpatient (REF) | payer OTHER, SELFPAY ==
--- NOTE | 2024-07-18 09:03 | EMG_ITS ---
Bilateral tibial and peroneal motor studies were performed. Bilateral superficial peroneal, sural, and medial lateral plantar sensory studies were performed. Tibial H reflexes were obtained and paraspinal muscles were tested with a needle. IMPRESSION: Mild to moderate axonal sensory motor peripheral neuropathy. MD REDDY Valverde/SHIVANI / [id number]
== END 2024-07-18 08:59 | disposition home or self-care (01) ==
LOC: HO.NEURO 08:58
PROVIDERS: PCP Family Medicine; Visit Provider Family Medicine
DX: M79.604 Pain in right leg (principal); M79.605 Pain in left leg
CPT/HCPCS: 95886; 95913

== ENCOUNTER → 2024-07-20 23:59 | Outpatient (BNV) | payer OTHER, SELFPAY ==
--- NOTE | 2024-07-23 12:47 | A.OFFVIS_ITS ---
Intake Visit Reasons: Remote HF monitoring- [employer] Allergies oxycodone Adverse Reaction (Intermediate, Verified 06/10/24 16:09) vomiting, delusions PFSH Medical History Pacemaker Gout Pimgk-3-bdubexdirif deficiency Encounter for discussion regarding implantable cardioverter-defibrillator Cardiomyopathy COPD (chronic obstructive pulmonary disease) Essential hypertension PVC (premature ventricular contraction) MARVA (obstructive sleep apnea) Carcinoid tumor High cholesterol Prostate enlargement Diabetes Surgical History History of surgical procedure (~2022) History of prostate surgery Hx of colonoscopy History of bronchoscopy History of lobectomy of lung Family History Son No problems noted. Father No problems noted. 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 [id number] Cardiac Device Interrogation, cardio physiologic monitor Procedure code (CPT) selection complete Assessment & Plan Assessment & Plan (1) Tachycardia, unspecified: Code(s): R00.0 - Tachycardia, unspecified Category: Medical (2) NICM (nonischemic cardiomyopathy): Code(s): I42.8 - Other cardiomyopathies Category: Medical Plan x Coding Level of Care Code Procedure Only Diagnoses Tachycardia, unspecified R00.0 NICM (nonischemic cardiomyopathy) I42.8 CPT Codes Cardiac Device Check - Cardiac Device 15: [id number] Cardiac Device Interrogation, cardio physiologic monitor ([id number])
== END ==
PROVIDERS: PCP Family Medicine; Visit Provider Internal Medicine
DX: I42.8 Other cardiomyopathies (principal); R00.0 Tachycardia, unspecified; Z95.818 Presence of other cardiac implants and grafts
CPT/HCPCS: 93297

== ENCOUNTER → 2024-07-20 23:59 | Outpatient (BNV) | payer OTHER, SELFPAY ==
--- NOTE | 2024-07-23 13:50 | A.OFFVIS_ITS ---
Intake Visit Reasons: Remote ICD Check- [employer] Allergies oxycodone Adverse Reaction (Intermediate, Verified 06/10/24 16:09) vomiting, delusions PFSH Medical History Pacemaker Gout Ijbdf-8-pfoiovhhzsn deficiency Encounter for discussion regarding implantable cardioverter-defibrillator Cardiomyopathy COPD (chronic obstructive pulmonary disease) Essential hypertension PVC (premature ventricular contraction) MARVA (obstructive sleep apnea) Carcinoid tumor High cholesterol Prostate enlargement Diabetes Surgical History History of surgical procedure (~2022) History of prostate surgery Hx of colonoscopy History of bronchoscopy History of lobectomy of lung Family History Son No problems noted. Father No problems noted. 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 [id number] Cardiac Interrogation, implant defibrillator w/interim Procedure code (CPT) selection complete Assessment & Plan Assessment & Plan (1) S/P ICD (internal cardiac defibrillator) procedure: Code(s): Z95.810 - Presence of automatic (implantable) cardiac defibrillator Category: Surgical (2) NICM (nonischemic cardiomyopathy): Code(s): I42.8 - Other cardiomyopathies Category: Medical Plan x Coding Level of Care Code Procedure Only Diagnoses S/P ICD (internal cardiac defibrillator) procedure Z95.810 NICM (nonischemic cardiomyopathy) I42.8 CPT Codes Cardiac Device Check - Cardiac Device 13: [id number] Cardiac Interrogation, implant defibrillator w/interim ([id number])
== END ==
PROVIDERS: PCP Family Medicine; Visit Provider Internal Medicine
DX: I42.8 Other cardiomyopathies (principal); Z95.810 Presence of automatic (implantable) cardiac defibrillator
CPT/HCPCS: 93295

== ENCOUNTER 2024-08-16 09:00 | Outpatient (RCR) | payer OTHER, SELFPAY ==
[2024-07-19 11:06] VITALS: BP 129/74; PULSE 76; O2SAT 97
== END 2024-08-16 09:49 | disposition home or self-care (01) ==
LOC: HO.PT 09:00
PROVIDERS: PCP Family Medicine; Visit Provider Family Medicine
DX: M79.604 Pain in right leg (principal); M79.605 Pain in left leg; M25.551 Pain in right hip; M25.552 Pain in left hip
CPT/HCPCS: 97110; 97162

== ENCOUNTER 2024-08-16 12:49 | Outpatient (REF) | payer OTHER, SELFPAY ==
--- NOTE | ~2024-08-16 | US_ITS ---
EXAMINATION: BILATERAL LOWER EXTREMITY DUPLEX CLINICAL INFORMATION: bilateral leg pain COMPARISON: None TECHNIQUE: Real-time ultrasound and Doppler techniques (integrating B-mode 2-D vascular images, Doppler spectral analysis and color flow Doppler imaging) were utilized to interrogate the lower extremities. FINDINGS: RIGHT LEG: Common femoral artery: 59.2 cm/s, triphasic Profunda femoris artery: 48.7 cm/s, triphasic Superficial femoral artery (proximal): 68 cm/s, triphasic Superficial femoral artery (mid): 67.4 cm/s, triphasic Superficial femoral artery (distal): 75.6 cm/s, triphasic Proximal popliteal artery: 61.6 cm/s, triphasic Posterior tibial artery: 72.7 cm/s, triphasic LEFT LEG: Common femoral artery: 77.8 cm/s, triphasic Profunda femoris artery: 43.2 cm/s, triphasic Superficial femoral artery (proximal): 76.2 cm/s, triphasic Superficial femoral artery (mid): 80.9 cm/s, triphasic Superficial femoral artery (distal): 61 cm/s, triphasic Popliteal artery: 43.2 cm/s, triphasic Posterior tibial artery: 73.3 cm/s, triphasic US/US arterial duplex LE BI IMPRESSION: There is no evidence of any hemodynamically significant lower extremity arterial disease by pressure, waveform or duplex Doppler criteria at rest. Electronically signed by: Mohinder Mora MD 08/24/2024 12:12 PM EDT Workstation: [id number]
== END 2024-08-16 12:50 | disposition home or self-care (01) ==
LOC: HO.US 12:49
PROVIDERS: PCP Family Medicine; Visit Provider Family Medicine
DX: M79.604 Pain in right leg (principal); M79.605 Pain in left leg
CPT/HCPCS: 93925

== ENCOUNTER → 2024-08-21 23:59 | Outpatient (BNV) | payer OTHER, SELFPAY ==
--- NOTE | 2024-08-24 19:36 | A.OFFVIS_ITS ---
Intake Visit Reasons: Remote HF monitoring- [employer] Allergies oxycodone Adverse Reaction (Intermediate, Verified 06/10/24 16:09) vomiting, delusions PFSH Medical History Pacemaker Gout Xuyfo-4-rxasvhjrcoo deficiency Encounter for discussion regarding implantable cardioverter-defibrillator Cardiomyopathy COPD (chronic obstructive pulmonary disease) Essential hypertension PVC (premature ventricular contraction) MARVA (obstructive sleep apnea) Carcinoid tumor High cholesterol Prostate enlargement Diabetes Surgical History History of surgical procedure (~2022) History of prostate surgery Hx of colonoscopy History of bronchoscopy History of lobectomy of lung Family History Son No problems noted. Father No problems noted. 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 [id number] Cardiac Device Interrogation, cardio physiologic monitor Procedure code (CPT) selection complete Assessment & Plan Assessment & Plan (1) S/P ICD (internal cardiac defibrillator) procedure: Code(s): Z95.810 - Presence of automatic (implantable) cardiac defibrillator Category: Surgical (2) NICM (nonischemic cardiomyopathy): Code(s): I42.8 - Other cardiomyopathies Category: Medical Plan x Coding Level of Care Code Procedure Only Diagnoses S/P ICD (internal cardiac defibrillator) procedure Z95.810 NICM (nonischemic cardiomyopathy) I42.8 CPT Codes Cardiac Device Check - Cardiac Device 15: [id number] Cardiac Device Interrogation, cardio physiologic monitor ([id number])
== END ==
PROVIDERS: PCP Family Medicine; Visit Provider Internal Medicine
DX: I42.8 Other cardiomyopathies (principal); Z95.810 Presence of automatic (implantable) cardiac defibrillator
CPT/HCPCS: 93297

== ENCOUNTER 2024-08-30 08:53 | Outpatient (REF) | payer OTHER, SELFPAY ==
[2024-08-30] MEDS: gadobutroL 7.5 ML VIAL IVPUSH (10:20)
== END 2024-08-30 08:54 | disposition home or self-care (01) ==
LOC: HO.MRI 08:53
PROVIDERS: PCP Family Medicine; Visit Provider Family Medicine
DX: K76.9 Liver disease, unspecified (principal)
CPT/HCPCS: 74183; A9585

== ENCOUNTER → 2024-09-19 23:59 | Outpatient (BNV) | payer OTHER, SELFPAY ==
--- NOTE | 2024-09-27 19:28 | MHC.OFFVIS ---
Intake Visit Reasons: Remote HF monitoring- [employer] Allergies oxycodone Adverse Reaction (Intermediate, Verified 06/10/24 16:09) vomiting, delusions PFSH Medical History Pacemaker Gout Barxp-2-hbwlbptqubt deficiency Encounter for discussion regarding implantable cardioverter-defibrillator Cardiomyopathy COPD (chronic obstructive pulmonary disease) Essential hypertension PVC (premature ventricular contraction) MARVA (obstructive sleep apnea) Carcinoid tumor High cholesterol Prostate enlargement Diabetes Surgical History History of surgical procedure (~2022) History of prostate surgery Hx of colonoscopy History of bronchoscopy History of lobectomy of lung Family History Son No problems noted. Father No problems noted. 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 Cardiac Device Check Details: Date of service- 09/19/2024; based on impedance data and physiological variables, there is possible optivol fluid accumulation from Aug to ongoing [id number] Cardiac Device Interrogation, cardio physiologic monitor Procedure code (CPT) selection complete Assessment & Plan Assessment & Plan (1) S/P ICD (internal cardiac defibrillator) procedure: Code(s): Z95.810 - Presence of automatic (implantable) cardiac defibrillator Category: Surgical (2) NICM (nonischemic cardiomyopathy): Code(s): I42.8 - Other cardiomyopathies Category: Medical (3) PVC (premature ventricular contraction): Code(s): I49.3 - Ventricular premature depolarization Category: Medical Plan x Coding Level of Care Code Procedure Only Diagnoses S/P ICD (internal cardiac defibrillator) procedure Z95.810 NICM (nonischemic cardiomyopathy) I42.8 PVC (premature ventricular contraction) I49.3 CPT Codes Cardiac Device Check - Cardiac Device 15: [id number] Cardiac Device Interrogation, cardio physiologic monitor ([id number])
== END ==
PROVIDERS: PCP Family Medicine; Visit Provider Internal Medicine
DX: I42.8 Other cardiomyopathies (principal); I49.3 Ventricular premature depolarization; Z95.810 Presence of automatic (implantable) cardiac defibrillator
CPT/HCPCS: 93297

== ENCOUNTER → 2024-10-20 23:59 | Outpatient (BNV) | payer OTHER, SELFPAY ==
--- NOTE | 2024-10-29 18:22 | MHC.OFFVIS ---
Intake Visit Reasons: Remote HF monitoring- [employer] Allergies oxycodone Adverse Reaction (Intermediate, Verified 06/10/24 16:09) vomiting, delusions PFSH Medical History Pacemaker Gout Schve-7-krpsqmalojh deficiency Encounter for discussion regarding implantable cardioverter-defibrillator Cardiomyopathy COPD (chronic obstructive pulmonary disease) Essential hypertension PVC (premature ventricular contraction) MARVA (obstructive sleep apnea) Carcinoid tumor High cholesterol Prostate enlargement Diabetes Surgical History History of surgical procedure (~2022) History of prostate surgery Hx of colonoscopy History of bronchoscopy History of lobectomy of lung Family History Son No problems noted. Father No problems noted. 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 [id number] Cardiac Device Interrogation, cardio physiologic monitor Procedure code (CPT) selection complete Assessment & Plan Assessment & Plan (1) S/P ICD (internal cardiac defibrillator) procedure: Code(s): Z95.810 - Presence of automatic (implantable) cardiac defibrillator Category: Surgical (2) NICM (nonischemic cardiomyopathy): Code(s): I42.8 - Other cardiomyopathies Category: Medical (3) PVC (premature ventricular contraction): Code(s): I49.3 - Ventricular premature depolarization Category: Medical Plan x Coding Level of Care Code Procedure Only Diagnoses S/P ICD (internal cardiac defibrillator) procedure Z95.810 NICM (nonischemic cardiomyopathy) I42.8 PVC (premature ventricular contraction) I49.3 CPT Codes Cardiac Device Check - Cardiac Device 15: [id number] Cardiac Device Interrogation, cardio physiologic monitor ([id number])
== END ==
PROVIDERS: PCP Family Medicine; Visit Provider Internal Medicine
DX: I42.8 Other cardiomyopathies (principal); I49.3 Ventricular premature depolarization; Z95.810 Presence of automatic (implantable) cardiac defibrillator
CPT/HCPCS: 93297

== ENCOUNTER → 2024-10-20 23:59 | Outpatient (BNV) | payer OTHER, SELFPAY ==
--- NOTE | 2024-10-29 18:24 | MHC.OFFVIS ---
Intake Visit Reasons: Remote ICD Check- [employer] Allergies oxycodone Adverse Reaction (Intermediate, Verified 06/10/24 16:09) vomiting, delusions PFSH Medical History Pacemaker Gout Hrlwh-3-holmrcrhqwi deficiency Encounter for discussion regarding implantable cardioverter-defibrillator Cardiomyopathy COPD (chronic obstructive pulmonary disease) Essential hypertension PVC (premature ventricular contraction) MARVA (obstructive sleep apnea) Carcinoid tumor High cholesterol Prostate enlargement Diabetes Surgical History History of surgical procedure (~2022) History of prostate surgery Hx of colonoscopy History of bronchoscopy History of lobectomy of lung Family History Son No problems noted. Father No problems noted. 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 [id number] Cardiac Interrogation, implant defibrillator w/interim Procedure code (CPT) selection complete Assessment & Plan Assessment & Plan (1) S/P ICD (internal cardiac defibrillator) procedure: Code(s): Z95.810 - Presence of automatic (implantable) cardiac defibrillator Category: Surgical (2) NICM (nonischemic cardiomyopathy): Code(s): I42.8 - Other cardiomyopathies Category: Medical (3) PVC (premature ventricular contraction): Code(s): I49.3 - Ventricular premature depolarization Category: Medical Plan x Coding Level of Care Code Procedure Only Diagnoses S/P ICD (internal cardiac defibrillator) procedure Z95.810 NICM (nonischemic cardiomyopathy) I42.8 PVC (premature ventricular contraction) I49.3 CPT Codes Cardiac Device Check - Cardiac Device 13: [id number] Cardiac Interrogation, implant defibrillator w/interim ([id number])
== END ==
PROVIDERS: PCP Family Medicine; Visit Provider Internal Medicine
DX: I42.8 Other cardiomyopathies (principal); I49.3 Ventricular premature depolarization; Z95.810 Presence of automatic (implantable) cardiac defibrillator
CPT/HCPCS: 93295

== ENCOUNTER → 2024-10-26 12:28 | Outpatient (REF) | payer OTHER, SELFPAY ==
--- NOTE | 2024-10-26 12:31 | CA_ITS ---
Transthoracic Echocardiogram Patient (Last, First, Middle): Sonny Curiel, Gender: Male Date of : 1960 Age: 63 Procedure Date: 10/26/2024 Procedure Type: Transthoracic Echocardiogram Location: OP Height: 167.64 cm Weight: 74.84 kg BSA: 1.84 m2 Heart Rate: 74 bpm BP: 129 / 74 mmHg Asset Coordinator: EHSAN Referring MD: Tomer Carolina MD Risk Consultant: Aakash Balbuena MD Symptoms: I42.8 - Other cardiomyopathies Study Quality: Adequate ECG Rhythm: Sinus Conclusions: - 1. Moderately dilated left ventricle with severely reduced LV ejection fraction of 20-25% with pseudonormal filling pattern 2. Mild mitral regurgitation 3. Normal RV systolic pressure 4. No gross pericardial effusion Findings Left Ventricle Moderately increased left ventricular cavity size. There is normal left ventricular wall thickness. The left ventricular systolic function is severely decreased. The visually estimated ejection fraction is between 20 25%. There is severe global hypokinesis. Spectral Doppler is indicative of a pseudonormal filling pattern. E/E prime ratio is between 8 and 15 consistent with indeterminate filling pressures. Right Ventricle Normal right ventricular cavity size and systolic function. There is an ICD wire seen in the right ventricle. Atria The left atrium is likely dilated. There is no evidence of interatrial shunt. The right atrium is normal in size. Aortic Valve There is mild calcification of the aortic valve. There is no aortic valve stenosis. There is no aortic valve regurgitation. Mitral Valve There is mild anterior and posterior mitral leaflet thickening. There is mild mitral valve regurgitation. There is no mitral valve stenosis. Pulmonic Valve The pulmonic valve was not well visualized. Tricuspid Valve Likely normal tricuspid valve structure and function. There is mild tricuspid valve regurgitation. The right ventricular systolic pressure is normal. The right ventricular systolic pressure is 33 mmHg. Normal right atrial pressure. There is no evidence of pulmonary hypertension. Great Vessels All visible segments of the aorta are normal in size. The pulmonary artery was not well visualized. There is no dilatation of the ascending aorta measuring 3.20 cm. Venous The inferior vena cava is normal in size and collapses greater than 50% with inspiration. Pericardium/Pleural There is no evidence of pericardial effusion. Prior Study Comparison No significant change compared to prior study dated: 10/30/2022. Measurements 2D Linear Measurements IVSd: 0.75 0.6-0.9/0.6-1.0 cm LVIDd: 6.19 3.9-5.3/4.2-5.9 cm LVIDd Index: 3.36 2.4-3.2/2.2-3.1 cm/m2 LVIDs: 5.68 2.0-3.6 cm LVPWd: 0.52 0.7-1.1 cm LA Diam: 4.00 2.7-3.8/3.0-4.0 cm LAIDs Index: 2.17 1.5-2.3 cm/m2 LV Mass: 185.10 67-162/88-224 g LV Mass Index: 100.60 43-95/49-115 g/m2 LVOT Diam: 2.20 3.0+(-)1.3 cm 2D Systolic Function EF 4C: 31.90 >55% EF 2C: 10.60 >55% EF BiP: 21.60 >55% Mitral Valve MV Pk E: 0.42 MV PK A: 0.36 MV Decel Time: 148.00 E/A: 1.20 E'Lateral: 3.59 E'Medial: 3.81 E/E' Med: 11.00 E/E' Lat: 11.70 PHT: 43.00 MVA PHT: 5.12 Decel Oldham: 2.84 Aortic Valve AoV Pk Michael: 0.88 AoV Pk Grad: 3.00 JOSE: 2.50 LVOT LVOT Pk Michael: 0.58 LVOT Mn Michael: 0.45 LVOT VTI: 0.11 LVOT Pk Grad: 1.00 LVOT Mn Grad: 1.00 LVOT Diam: 2.20 LVOT Area: 3.80 Diastolic Function MV Pk E: 0.42 MV Pk A: 0.36 E/A: 1.20 E'Medial: 3.81 E/E' Med: 11.00 E' Laterial: 3.59 E/E' Lat: 11.70 Right Ventricle TAPSE (mm): 18.00 TVS' Michael: 8.49 Tricuspid Valve TR Pk Michael: 2.74 TR Pk Grad: 30.00 RA Press: 3.00 RVSP: 33.00 Great Vessels Aorta Sinus of Valsalva: 3.50 2.0-3.5 cm Ao Asc: 3.20 2.1-3.4 cm Pulmonary Veins Pulm Vein S/D 1.20 Pulmonary Valve PV Pk Michael: 0.58 Peak PV Grad: 1.00 Updated in Other Vendor System with Status of Final Aakash Balbuena MD electronically signed on 10/27/2024 3:34:36 PM with status of Final
== END ==
LOC: HO.CARD 12:28
PROVIDERS: PCP Family Medicine; Visit Provider Internal Medicine
DX: I42.8 Other cardiomyopathies (principal)
CPT/HCPCS: 93306

== ENCOUNTER → 2024-10-26 12:31 | Outpatient (BNV) | payer OTHER, SELFPAY | PROVIDERS: PCP Family Medicine; Visit Provider Internal Medicine Cardiovascular Disease | DX: I34.0 Nonrheumatic mitral (valve) insufficiency (principal); I36.1 Nonrheumatic tricuspid (valve) insufficiency | CPT/HCPCS: 93306 ==

== ENCOUNTER 2024-11-02 13:02 | Outpatient (AMB) | payer OTHER, SELFPAY ==
--- NOTE | 2024-11-02 13:31 | A.OFFVIS_ITS ---
Vital Signs 11/02/24 13:32 Height 5 ft 7 in Weight 152 lb 1.903 oz BMI 23.8 BP 128/68 Blood Pressure Location Lt brachial Position Sitting Pulse 78 Pulse Source Pulse Oximeter Intake Visit Reasons: 6 mth f/up echo Allergies oxycodone Adverse Reaction (Intermediate, Verified 06/10/24 16:09) vomiting, delusions Medication List - Last Reconciled 11/02/24 by Tomer Carolina MD albuterol sulfate 90 mcg/actuation 1 inh inhalation QID PRN atorvastatin (Lipitor) 80 mg PO DAILY budesonide-formoterol 160-4.5 mcg/actuation (Symbicort) 2 puffs inhalation BID carvedilol 18.75 mg PO BID cyclobenzaprine 10 mg PO Q8H PRN dapagliflozin propanediol (Farxiga) 10 mg PO DAILY furosemide 20 mg PO DAILY hydrocodone-acetaminophen 5-325 mg 1 tab PO Q4-6H PRN meloxicam 7.5 mg PO DAILY metformin 1,000 mg PO BID multivitamin 1 tab PO DAILY omega-3 fatty acids 1,000 mg PO BID sacubitril-valsartan 49-51 mg (Entresto) 1 tab PO BID 90 days sertraline 25 mg PO DAILY spironolactone 25 mg PO DAILY HPI Comments Details: Sonny returns for follow-up regarding nonischemic cardiomyopathy. Has a history of frequent PVCs. Multiple risk factors including diabetes, hyperten az, dyslipidemia, but cardiac catheterization did not show any significant coronary disease. Overall, he states he is feeling good. No cardiac symptoms whatsoever. [facility] Medical History Pacemaker Gout Posau-5-ahbtytpxayr deficiency Encounter for discussion regarding implantable cardioverter-defibrillator Cardiomyopathy COPD (chronic obstructive pulmonary disease) Essential hypertension PVC (premature ventricular contraction) MARVA (obstructive sleep apnea) Carcinoid tumor High cholesterol Prostate enlargement Diabetes Surgical History History of surgical procedure (~2022) History of prostate surgery Hx of colonoscopy History of bronchoscopy History of lobectomy of lung Family History Son No problems noted. Father No problems noted. 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 Review of Systems Const Denies weakness ENT Denies dizziness Card Denies chest pain, Denies chest pain with activity, Denies syncope, Denies rapid heart rate, Denies pedal edema, Denies edema, Denies leg edema, Denies lightheadedness, Denies palpitations, Denies dyspnea, Denies dyspnea on exertion and Denies orthopnea Resp Denies cough, Denies dyspnea and Denies dyspnea on exertion GI Denies hematochezia and Denies change in stool character Musc Denies abnormal gait, Denies muscle cramps, Denies muscle weakness, Denies numbness, Denies radiating pain into limb and Denies tingling Neuro Denies abnormal gait, Denies dizziness, Denies syncope, Denies numbness, Denies tingling and Denies weakness Endo Denies palpitations Physical Exam Vital Signs: Last Vital Signs Pulse 78 11/02/24 13:32 BP 128/68 11/02/24 13:32 BMI result Body Mass Index 23.8 Const General: comfortable and no acute distress Orientation/consciousness: patient oriented x3 HEENT Other: Unremarkable Head: Yes normal to inspection Neck Neck: Yes normal visual inspection Chest Chest palpation & inspection: normal inspection of the chest Resp Auscultation: clear to auscultation bilaterally Cardio Palpation: normal PMI Heart sounds: S1 normal heart sound present, S2 normal heart sound present, no gallops, no murmurs and no rubs GI Palpation (GI): Soft to palpation Back/Spine/Pelvis Other: unremarkable Skin General skin exam: no rashes or lesions noted Neuro General: patient oriented x3 Extrem General: Yes normal to inspection Psych Mental Status: mental status grossly normal Assessment & Plan Assessment & Plan (1) NICM (nonischemic cardiomyopathy): Code(s): I42.8 - Other cardiomyopathies Category: Medical Plan: In the echocardiogram, LVEF 20-55%. Similar to prior. Cardiac catheterization with mild luminal irregularities in the LAD but otherwise unremarkable coronaries. LVEDP was also normal. Could be either from hypertension or from alcoholic cardiomyopathy. However, no alcohol excess in the last few years. Continue Coreg/Entresto/spironolactone/Farxiga. Low-dose diuretics. Check renal function. There is also history of low magnesium and hence check that. (2) PVC (premature ventricular contraction): Code(s): I49.3 - Ventricular premature depolarization Category: Medical Plan: In the last Holter, PVC burden of 5.3%. Short runs noted. Nothing sustained. Already has ICD in place. (3) Essential hypertension: Code(s): I10 - Essential (primary) hypertension Category: Medical Plan: Stable. No changes. (4) Diabetes: Code(s): E11.9 - Type 2 diabetes mellitus without complications Category: Medical Plan: On metformin/Farxiga. Last hemoglobin A1c is 6.5%. Orders: Orders Magnesium Today E83.42 - Hypomagnesemia, I42.8 - Other cardiomyopathies Basic Metabolic Panel Today I42.8 - Other cardiomyopathies Coding Level of Care Code Est Pt Level 4 (75100) Diagnoses NICM (nonischemic cardiomyopathy) I42.8 PVC (premature ventricular contraction) I49.3 Essential hypertension I10 Diabetes E11.9
[2024-11-02 13:32] VITALS: BP 128/68; PULSE 78; BMI 23.8
== END 2024-11-02 14:06 | disposition home or self-care (01) ==
PROVIDERS: PCP Family Medicine; Visit Provider Internal Medicine
DX: I42.8 Other cardiomyopathies (principal); I49.3 Ventricular premature depolarization; I10 Essential (primary) hypertension; E11.9 Type 2 diabetes mellitus without complications
CPT/HCPCS: 99214

== ENCOUNTER 2024-11-02 13:02 | Outpatient (REF) | payer OTHER, SELFPAY ==
[2024-11-02 15:36] LABS: Anion Gap 10 (12-20); Blood Urea Nitrogen 15 mg/dL (9-16); Calcium 9.7 mg/dL (8.4-10.2); Carbon Dioxide 29 mmol/L (22-29); Chloride 109 mmol/L (96-108); Estimated Glomerular Filt Rate > 60; Glucose Random 113 mg/dL (60-115); Magnesium 1.6 mg/dL (1.6-2.6); Potassium 4.3 mmol/L (3.3-5.1); Sodium 144 mmol/L (135-145)
== END 2024-11-02 13:03 | disposition home or self-care (01) ==
LOC: HO.LAB 13:02
PROVIDERS: PCP Family Medicine; Visit Provider Internal Medicine
DX: I42.8 Other cardiomyopathies (principal); E83.42 Hypomagnesemia; I49.3 Ventricular premature depolarization; I10 Essential (primary) hypertension; E11.9 Type 2 diabetes mellitus without complications; Z95.810 Presence of automatic (implantable) cardiac defibrillator; Z79.899 Other long term (current) drug therapy
CPT/HCPCS: 36415; 80048; 83735; 99212

== ENCOUNTER → 2024-11-20 23:59 | Outpatient (BNV) | payer OTHER, SELFPAY ==
--- NOTE | 2024-11-26 11:54 | A.OFFVIS_ITS ---
Intake Visit Reasons: Remote HF monitoring- [employer] Allergies oxycodone Adverse Reaction (Intermediate, Verified 06/10/24 16:09) vomiting, delusions PFSH Medical History Pacemaker Gout Evddk-8-ydjqdewfkal deficiency Encounter for discussion regarding implantable cardioverter-defibrillator Cardiomyopathy COPD (chronic obstructive pulmonary disease) Essential hypertension PVC (premature ventricular contraction) MARVA (obstructive sleep apnea) Carcinoid tumor High cholesterol Prostate enlargement Diabetes Surgical History History of surgical procedure (~2022) History of prostate surgery Hx of colonoscopy History of bronchoscopy History of lobectomy of lung Family History Son No problems noted. Father No problems noted. 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 [id number] Cardiac Device Interrogation, cardio physiologic monitor Procedure code (CPT) selection complete Assessment & Plan Assessment & Plan (1) S/P ICD (internal cardiac defibrillator) procedure: Code(s): Z95.810 - Presence of automatic (implantable) cardiac defibrillator Category: Surgical (2) NICM (nonischemic cardiomyopathy): Code(s): I42.8 - Other cardiomyopathies Category: Medical Plan x Coding Level of Care Code Procedure Only Diagnoses S/P ICD (internal cardiac defibrillator) procedure Z95.810 NICM (nonischemic cardiomyopathy) I42.8 CPT Codes Cardiac Device Check - Cardiac Device 15: [id number] Cardiac Device Interrogation, cardio physiologic monitor ([id number])
== END ==
PROVIDERS: PCP Family Medicine; Visit Provider Internal Medicine
DX: I42.8 Other cardiomyopathies (principal); Z95.810 Presence of automatic (implantable) cardiac defibrillator
CPT/HCPCS: 93297

== ENCOUNTER → 2024-12-21 23:59 | Outpatient (BNV) | payer OTHER, SELFPAY ==
--- NOTE | 2024-12-25 08:47 | MHC.OFFVIS ---
Intake Visit Reasons: Remote HF monitoring- [employer] Allergies oxycodone Adverse Reaction (Intermediate, Verified 06/10/24 16:09) vomiting, delusions PFSH Medical History Pacemaker Gout Xhenz-7-ushwruroprt deficiency Encounter for discussion regarding implantable cardioverter-defibrillator Cardiomyopathy COPD (chronic obstructive pulmonary disease) Essential hypertension PVC (premature ventricular contraction) MARVA (obstructive sleep apnea) Carcinoid tumor High cholesterol Prostate enlargement Diabetes Surgical History History of surgical procedure (~2022) History of prostate surgery Hx of colonoscopy History of bronchoscopy History of lobectomy of lung Family History Son No problems noted. Father No problems noted. 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 [id number] Cardiac Device Interrogation, cardio physiologic monitor Procedure code (CPT) selection complete Assessment & Plan Assessment & Plan (1) S/P ICD (internal cardiac defibrillator) procedure: Code(s): Z95.810 - Presence of automatic (implantable) cardiac defibrillator Category: Surgical (2) NICM (nonischemic cardiomyopathy): Code(s): I42.8 - Other cardiomyopathies Category: Medical Plan x Coding Level of Care Code Procedure Only Diagnoses S/P ICD (internal cardiac defibrillator) procedure Z95.810 NICM (nonischemic cardiomyopathy) I42.8 CPT Codes Cardiac Device Check - Cardiac Device 15: [id number] Cardiac Device Interrogation, cardio physiologic monitor ([id number])
== END ==
PROVIDERS: PCP Family Medicine; Visit Provider Internal Medicine
DX: I42.8 Other cardiomyopathies (principal); Z95.810 Presence of automatic (implantable) cardiac defibrillator
CPT/HCPCS: 93297

== ENCOUNTER 2025-01-03 08:52 | Emergency (ER) | payer OTHER, SELFPAY ==
[2025-01-03] VITALS (10 sets, daily range): BP systolic 131–142; BP diastolic 86–99; PULSE 69–91; RESP 14–18; TEMP 36.4–36.9; O2SAT 88–99; BMI 25.5
--- NOTE | ~2025-01-03 | XR_ITS ---
EXAMINATION: XR CHEST CLINICAL INFORMATION: cp, cough COMPARISON: 12/14/2022. CT angiogram chest 06/10/2024. TECHNIQUE: Frontal view of the chest was obtained. FINDINGS: Single lead left AICD device in place with lead extending into the right ventricle. There is cardiac enlargement. Mediastinal hilar contours appear normal. Postoperative changes to the left upper lobe region with mild left lung volume loss, and stable left upper lobe parenchymal scarring. Mild blunting of the left costophrenic angle is chronic and stable. Subtle Brittany B lines in the peripheral lung bases and minimal haziness of the vasculature, possible mild CHF. No focal osseous or soft tissue abnormality. XR/XR chest 1V IMPRESSION: 1. AICD device, stable. 2. Probable mild interstitial pulmonary edema. Cardiomegaly. 3. Stable postoperative volume loss and scarring left lung. Electronically signed by: Burton Ang MD 01/03/2025 10:35 AM EDT
--- OUTSIDE RECORDS SUMMARY | 2025-01-03 09:46 | XMS_ITS | Encounter Summary ---
Author Organization [employer] Address [address] [place] [address] Care Team Providers Care Residential Appraiser Name Role Phone Farrah Jackson DO Primary Care Provider + [phone] Reason for Visit * Reason Comments Med Refill Encounter Details Date Type Department Care Team ([facility] st Contact Info) Description 07/10/2024 Refill [facility] [address] [place], [place] [phone] Farrah Jackson DO [address] [place], [place] [phone] Social History Tobacco Use Types Packs/Day Years Used Date Smoking Tobacco: Former Passive Smoke Exposure: Past Smokeless Tobacco: Never Alcohol Use Standard Drinks/Week Comments Never 0 (1 standard drink = 0.6 oz pur e alcohol) Depression Answer Date Recorded Patient Health Questionnaire-9 Score 2 04/21/2024 Patient Health Questionnaire-9 Score 2 04/21/2024 Last PHQ-9: Questionnaire Data Not on file 0 04/21/2024 Housing Stability Answer Date Recorded What is your housing situation today? I have ayden chaney 04/21/[address] you li ve. Do you have problems with any of the following? None of the above 04/21/2024 Food Insecurity Answer Date Recorded Within the past 12 months, y ou worried that your food would run out before you got money to buy more: Never True 04/21/2024 Within the past 12 months,th e food you bought just didn't last and you didn't have enough money to get more: Never True Transportation Answer Date Recorded In the past 12 months, has l ack of transportation kept you from medical appts, meetings, work or from getting things needed for daily living? No 04/21/2024 Utilities Answer Date Recorded In the past 12 months, has t he electric, gas, oil or water company threatened to shut off services in your home? No 04/21/2024 Depression Answer Date Recorded Patient Health Questionnaire-2 Score 0 04/21/2024 Internet Access Answer Date Recorded Internet Access Q1 Yes 06/23/2024 Internet Access Q2 Not on file 06/23/2024 Sex and Gender Information Value Date Recorded Sex Assigned at Male 08/24/2022 10:16 AM EDT Legal Sex Male 10:16 AM EDT Gender Identity Male 08/24/2022 10:16 AM EDT Sexual Orientation Choose not to disclose 2021 10:16 AM EDT documented as of this encounter Plan of Treatment Not on file documented as of this encounter Visit Diagnoses Not on filedocumented in this encounter Additional Health Concerns Assessment Noted Time PHQ-9 Depression Total Score: 2 04/21/20 24 8:50 AM EDT documented as of this encounter Care Teams Residential Appraiser Relationship Specialty Start Date End Date Farrah Jackson DO [address] [place] [address] PCP - General Family Medicine 10/25/18 documented as of this encounter
--- OUTSIDE RECORDS SUMMARY | 2025-01-03 09:46 | XMS_ITS | Encounter Summary ---
Author Organization [facility] Address [address] [place] [address] Care Team Providers Care Firefighter Type One Name Role Phone Unavailable Primary Care Provider Unavailabl e Encounter Details Date Type Department Care Team (Late st Contact Info) Description 09/11/2024 Lab Requisition [facility] Lab [address] [place] [address] Krishna Jose MD [address] [facility] [address] [place] [id number] Elevated prostate specific antigen (PSA) Social History Tobacco Use Types Packs/Day Years Used Date Smoking Tobacco: Never Assessed Sex and Gender Information Value Date Recorded Sex Assigned at Not on file Legal Sex Male 4:57 AM EST Gender Identity Not on file Sexual Orientation Not on file documented as of this encounter Plan of Treatment Not on file documented as of this encounter Procedures Procedure Name Priority Date/Time Associated Diagnosis Comments AP OUTSIDE CONSULT Routine 09/06/2024 12 :00 AM EST Elevated prostate specific antigen (PSA) documented in this encounter Results * Anatomic pathology outside consult (09/06/2024 12:00 AM EST) Final Diagnosis Urine, Voided: Negative for high grade urothelial carcinoma. Acute inflammation present. 09/20/2024 4:27 PM EST [facility] Gross Description A. Urine, Voided, : [id number] Recd 1 TP CYTO 09/20/2024 4:27 PM EST [facility] Disclaimer Unless otherwise specified, all tissue is 10% NB formalin fixed and paraffin embedded. 09/20/2024 4:27 PM EST [facility] Tissue Urine specimen from urethra / Unknown 09/06/2024 09/11/2024 1:13 PM EST us Krishna Jose MD LAB PATHOLOGY ORDERABLES Final Result [facility] [address] [place] [address], documented in this encounter Visit Diagnoses Diagnosis Elevated prostate specific antigen (PSA) documented in this encounter
--- OUTSIDE RECORDS SUMMARY | 2025-01-03 09:46 | XMS_ITS | Encounter Summary ---
Author Organization [employer] Address [address] [facility] 7t [place] [address] Care Team Providers Care Community Resource Consultant Name Role Phone Farrah Jackson DO Primary Care Provider + [phone] Encounter Details Date Type Department Care Team (Late st Contact Info) Description 01/15/2023 Orders Only [facility] [address] [place], [place] [phone] Farrah Baird LPN Social History Tobacco Use Types Packs/Day Years Used Date Smoking Tobacco: Former Cigarettes Smokeless Tobacco: Never Alcohol Use Standard Drinks/Week Comments Never 0 (1 standard drink = 0.6 oz pur e alcohol) Sex and Gender Information Value Date Recorded Sex Assigned at Male 08/24/2022 10:16 AM EDT Legal Sex Male 10:16 AM EDT Gender Identity Male 08/24/2022 10:16 AM EDT Sexual Orientation Choose not to disclose 2021 10:16 AM EDT COVID-19 Exposure Response Date Recorded In the last 10 days, have yo u been in contact with someone who was confirmed or suspected to have Coronavirus/COVID-19? No / Unsure 01/15/2023 10:24 AM EDT documented as of this encounter Plan of Treatment Not on file documented as of this encounter Visit Diagnoses Not on filedocumented in this encounter Care Teams Community Resource Consultant Relationship Specialty Start Date End Date Farrah Jackson DO [address] [place] [address] PCP - General Family Medicine 10/25/18 documented as of this encounter
--- OUTSIDE RECORDS SUMMARY | 2025-01-03 09:46 | XMS_ITS | Clinical Summary ---
Author Organization [facility] Address [address] [place] [phone] Phone Care Team Providers Care Legal Billing Coordinator Name Role Phone Unavailable Primary Care Provider Unavailabl e Social History Tobacco Use Types Packs/Day Years Used Date Smoking Tobacco: Never Assessed Sex and Gender Information Value Date Recorded Sex Assigned at Not on file Legal Sex Male 4:57 AM EST Gender Identity Not on file Sexual Orientation Not on file Plan of Treatment Health Maintenance Due Date Last Done Comments DTaP,Tdap,and Td Vaccines (1 - Tdap) 1977 Pneumococcal Vaccine: 50+ Ye ars (1 of 1 - PCV) 2008 Zoster Vaccines (1 of 2) 2008 COVID-19 Vaccine ( - 2023-2 5 season) 2024 Influenza Vaccine (#1) 2024 RSV Immunization Patients 60 + Years Old (1 - 1-dose 75+ series) 2033 HIB Vaccines Aged Out No longer eligi ble based on patient's age to complete this topic HPV Vaccines Aged Out No longer eligi ble based on patient's age to complete this topic Hepatitis A Vaccines Aged Out No long er eligible based on patient's age to complete this topic Hepatitis B Vaccines Aged Out No long er eligible based on patient's age to complete this topic IPV Vaccines Aged Out No longer eligi ble based on patient's age to complete this topic MMR Vaccines Aged Out No longer eligi ble based on patient's age to complete this topic Meningococcal ACWY Vaccine Aged Out N o longer eligible based on patient's age to complete this topic Meningococcal B Vacine Aged Out No lo nger eligible based on patient's age to complete this topic RSV Immunization Patients Un chela 20 months Aged Out No longer eligible b ased on patient's age to complete this topic Varicella Vaccines Aged Out No longer eligible based on patient's age to complete this topic
--- OUTSIDE RECORDS SUMMARY | 2025-01-03 09:46 | XMS_ITS | Clinical Summary ---
Author Organization [employer] Address [address] [facility] 7t [place] [address] Care Team Providers Care Gate Tender Name Role Phone RenettaFarrah Primary Care Provider [phone] Allergies Active Allergy Reactions Criticality Noted Date Comments Metformin 04/10/2010 Other reaction(s): Other (See Comments) Dehydration Oxycodone High 06/10/2024 Other Reaction(s): vomiting, delusions Medications furosemide (Lasix) 20 MG tablet Take 20 mg by mouth in the morning. 10/20/20 22 Active Entresto 49-51 MG tablet Take 1 tablet by mouth 2 times daily. 12/14/19 23 Active spironolactone (Aldactone) 25 MG tablet Take 25 mg by mouth in the morning. 12/02/19 23 Active Blood Glucose Monitoring Suppl (FreeStyle Lite) w/Device kit 1 each 2 times daily. 1 kit 02/11/20 23 Active acetaminophen (Tylenol 8 Hour) 650 MG ER tablet Take 1 tablet (650 mg) by mouth every 8 (eight) hours if needed for mild pain. 40 tablet 1 03/30/20 23 Active Diclofenac Sodium 1 % gel Apply 2 g topically if needed in the morning, at noon, in the evening, and at bedtime (pain). 150 g 3 03/30/20 23 Active clonazePAM (KlonoPIN) 0.5 MG tablet Take 1 tablet (0.5 mg) by mouth if needed each day for anxiety for up to 7 days. 7 tablet 03/30/20 23 Active omega-3 1000 MG capsule capsule TAKE 1 CAPSULE BY MOUTH TWICE A DAY*NC* 180 capsule 3 07/21/20 23 Active Farxiga 10 MG Take 10 mg by mouth in the morning. 01/21/20 24 Active baclofen (Lioresal) 10 MG tablet Take 1 tablet (10 mg) by mouth if needed in the morning, at noon, and at bedtime for muscle spasms. 60 tablet 1 06/07/20 24 Active meloxicam (Mobic) 7.5 MG tablet Take 7.5 mg by mouth Once per day. 05/24/20 24 Active atorvastatin (Lipitor) 80 MG tablet TAKE 1 TABLET BY MOUTH AT BEDTIME 90 tablet 1 09/19/20 24 Active atorvastatin (Lipitor) 80 MG tablet Take 1 tablet (80 mg) by mouth at bedtime. 90 tablet 1 09/19/20 24 Active gabapentin (Neurontin) 300 MG capsule TAKE 1 CAPSULE BY MOUTH AT BEDTIME 30 capsule 3 10/10/20 24 Active sertraline (Zoloft) 25 MG tablet TAKE 1 TABLET BY MOUTH EVERY MORNING 30 tablet 2 11/06/19 25 Active metFORMIN (Glucophage) 500 MG tablet TAKE 2 TABLETS BY MOUTH TWICE DAILY IN THE MORNING AND EVENING WITH MEALS 360 tablet 3 11/10/19 25 Active FREESTYLE LITE test stripIndications :Type 2 diabetes mellitus with microalbuminuria , without long-term current use of insulin ([facility]) USE TWICE DAILY DIRECTED 100 strip 8 11/29/19 25 Active carvedilol (Coreg) 12.5 MG tabletIndication s:Primary hypertension TAKE 1 AND 1/2 TABLETS BY MOUTH TWICE DAILY IN THE MORNING AND IN THE EVENING WITH FOOD 90 tablet 12/12/19 25 Active carvedilol (Coreg) 12.5 MG tabletIndication s:Primary hypertension TAKE 1 AND 1/2 TABLETS BY MOUTH TWICE DAILY IN THE MORNING AND IN THE EVENING WITH FOOD 90 tablet 3 08/16/20 24 025 Discontinued Active Problems Problem Noted Date Diagnosed Date Acute urinary retention 06/19/2024 Adverse drug reaction 06/19/2024 Bilateral groin pain 06/19/2024 Hypomagnesemia 06/19/2024 Myalgia 06/19/2024 Nausea & vomiting 06/19/2024 Severe dental caries 05/30/2024 COPD (chronic obstructive pulmonary disease) 09/202308/05/2023 MARVA (obstructive sleep apnea) 08/05/2023 Nonischemic cardiomyopathy 03/30/2023 AICD (automatic cardioverter/defibrillator) pres ent 03/30/2023 BPH without urinary obstruction 01/08/2017 Chronic gastroesophageal reflux disease 01/09/20 Hyperlipidemia 01/08/2017 Essential hypertension 01/08/2017 Microscopic hematuria 01/08/2017 Status post partial lobectomy of lung 01/08/2017 Fatty liver 01/08/2017 Type 2 diabetes mellitus 01/08/2017 History of malignant carcinoid tumor 01/24/2013 Overview (02/09/2023): CA - Lung cancer Resolved Problems Problem Noted Date Diagnosed Date Resolved Date NICM (nonischemic cardiomyopathy) 08/05/2023 023 08/05/2023 Irregular heart rhythm 04/07/201802/10 Chronic alcoholism in remission 01/08/2017 03/30/2023 Encounters Date Type Department Care Team Description 12/29/2024 Telephone [facility] [address] [place] [address] Farrah Jackson DO Recall Letter (Recall Letter sent 12/29/24.) 12/09/2024 Refill [facility] [address] [place] [address] Farrah Jackson DO Primary hypertension 11/25/2024 Refill [facility] [address] [place] [address] Farrah Jackson DO Type 2 diabetes mellitus with microalbuminuria, without long-term current use of insulin ([facility]) 11/09/2024 Telephone [facility] [address] [place] [address] Velia Mckee, RN Results 11/09/2024 Refill [facility] [address] [place] [address] Farrah Jackson DO 11/05/2024 Refill [facility] [address] [place] [address] Farrah Jackson DO 11/02/2024 Orders Only GENERIC EXTERNAL DATA DEPARTMENT Provider, Generic External Data 10/24/2024 Patient Outreach [facility] [address] [place] [address] Farrah Jackson DO Pre-visit Planning (SDVA screening completed on 04/21/2024) 10/10/2024 Telephone [facility] [address] [place] [address] Jack Emmanuel [place] October recall 10/07/2024 [facility] [place] [address] Farrah Jackson DO from Last 3 Months Immunizations Name Administration Dates Next Due Hep A, Adult 02/18/2006 Hep B, adult 04/09/2015,03/14/2015 Influenza injectable quadriv alent preservative free 08/05/2023,07/10/2022,10/14/2021,07/20,09/08/2016 Influenza, seasonal, injecta ble, preservative free 08/05/2015 Influenza, trivalent, adjuvanted 08/05/2015 Moderna Covid-19 Vaccine 12+ 02/07/2021,01/11/20 21 Pfizer Covid-19 Vaccine 12+ 04/21/2024,1 ,05/06/2022,09/12 Pfizer Covid-19 Vaccine 12+ Bivalent 09/29/2022 Pfizer Covid-19 Vaccine 12+ giovanny-sucrose (Rehman Cap) 05/06/2022 Pneumococcal Conjugate PCV 20 08/05/2023 Pneumococcal Polysaccharide PPSV23 12/27/2019, TD (adult), 2 Lf tetanus tox oid, preservative free, adsorbed 06/02/2021,10/25/1998 Tdap 08/31/2023,03/04/2010 Zoster, Recombinant 12/16/2021,10/14/2021 Social History Tobacco Use Types Packs/Day Years Used Date Smoking Tobacco: Former Passive Smoke Exposure: Past Smokeless Tobacco: Never Tobacco Cessation:Counseling Given: Not Answered Alcohol Use Standard Drinks/Week Comments Never 0 [...] not to disclose 2021 10:16 AM EDT Last Filed Vital Signs Vital Sign Reading Time Taken Comments Blood Pressure 96/59 06/19/2024 10:52 AM EDT Pulse 90 06/19/2024 10:52 AM EDT Temperature 36.3 ??C (97.3 ??F) 06/19/2024 10:52 AM E DT Respiratory Rate 17 06/19/2024 10:52 AM EDT Oxygen Saturation 100% 06/19/2024 10:52 AM EDT Inhaled Oxygen Concentration - - Weight 68.9 kg (152 lb) 06/19/2024 10:52 AM EDT Height 170.2 cm (5' 7 ) 06/07/2024 11:11 AM EDT Body Mass Index 23.81 06/07/2024 11:11 AM EDT Plan of Treatment Health Maintenance Due Date Last Done Comments CT Colonography 1958 Colonoscopy 1958 Dental Oral Exam 1958 Dental Prophylaxis 1958 Dental X-Ray: Bitewings 1958 FIT 1958 FOBT 1958 Sigmoidoscopy 1958 Diabetes: Foot Exam 1968 Eye Exam 1968 Alcohol/Substance Use Screening 1970 Hepatitis A Vaccines (2 of 2 - Risk 2-dose series) 08/20/2006 02/18/2006 Dental X-Ray: Full Mouth 10/29/2013 10/28/2010 Hepatitis B Vaccines (3 of 3 - Risk 3-dose series) 09/14/2015 04/09/2015, 03/14/2015 RSV Patients and Patients Aged 60 years or older (1 - Risk 60-74 years 1-dose series) 2018 COVID-19 Vaccine ( season) 2024 04/21/2024, 08/05/2023, 09/29/2022, Additional history exists Influenza Vaccine (#1) 2024 , 07/10/2022, 10/14/2021, Additional history exists Diabetes: Hemoglobin A1C 10/21/2024 024, 04/21/2024, 01/11/2024, Additional history exists Depression Screening 04/21/2025 04/21/2024, 04/21/20 24 Lipid Panel 04/21/2025 04/21/2024, 04/1 06/2023, 07/10/2022, Additional history exists SDOH Screening 04/21/2025 04/21/2024 Tobacco Screening 06/19/2025 06/19/2024 Colorectal Cancer Screening 08/26/2026 FIT DNA/Cologuard 08/26/2026 08/26/2023 DTaP/Tdap/Td Vaccines (4 - Td or Tdap) 08/31/2033 08/31/2023, 06/02/2021, 03/04/2010, Additional history exists Zoster Vaccines Completed 12/16/2021, 10/14/2021 Hepatitis C Screening Completed 02/10/2023 Pneumococcal Vaccine: 50+ Years Completed 08/05/2023, 12/27/2019, 03/04/2010 HIB Vaccines Aged Out No longer eligi ble based on patient's age to complete this topic HPV Vaccines Aged Out No longer eligi ble based on patient's age to complete this topic IPV Vaccines Aged Out No longer eligi ble based on patient's age to complete this topic Meningococcal Vaccine Aged Out No tobin prince eligible based on patient's age to complete this topic RSV under 20 months Aged Out No longe r eligible based on patient's age to complete this topic Rotavirus Vaccines Aged Out No longer eligible based on patient's age to complete this topic Procedures Procedure Name Priority Date/Time Associated Diagnosis Comments MAGNESIUM Routine 11/02/2024 2:34 PM EST BASIC METABOLIC PANEL Routine 11/02/2024 2:34 PM EST LIPID PANEL, STANDARD Routine 04/21/2024 10:01 AM EDT Type 2 diabetes mellitus with microalbuminuria, without long-term current use of insulin (CMS/HCC) Essential hypertension Other hyperlipidemia Fatty liver Anxiety Cardiomyopathy, unspecified type (CMS/HCC) Dysuria Elevated PSA Sleep disorder breathing Healthcare maintenance POCT GLYCATED HEMOGLOBIN, TOTAL Routine 04/21/2024 9:10 AM EDT Type 2 diabetes mellitus with microalbuminuria, without long-term current use of insulin (CMS/HCC) LAB COLOGUARD?? COLON CANCER SCREEN Routine 08/26/2023 12:36 PM EDT Healthcare maintenance HEPATITIS C AB W/RFL RNA, PCR W/RFL GENOTYPE,LIPA Routine 02/10/2023 12:11 PM EDT Type 2 diabetes mellitus with microalbuminuria, without long-term current use of insulin (CMS/HCC) PANORAMIC RADIOGRAPHIC IMAGE Routine 10/28/2010 12:00 AM EST from Last 3 Months or Most Recently Relevant to Health Maintenance Results * Magnesium (11/02/2024 2:34 PM EST) Magnesium 1.6 1.6 - 2.6 mg/dL [facility] 11/02/2024 2:34 PM EST 11/02/2024 2:34 PM EST Generic External Data Provider LAB BLOOD ORDERAB LES Final Result Performing Organization Address [facility] Co de Phone Number [facility] [address] [place] [address] [phone] * (ABNORMAL) Basic Metabolic Panel (11/02/2024 2:34 PM EST) Sodium 144 135 - 145 mmol/L [facility] Potassium 4.3 3.3 - 5.1 mmol/L [facility] Chloride 109(H) 96 - 108 mmol/L [facility] Carbon Dioxide 29 22 - 29 mmol/L [facility] Anion Gap 10(L) 12 - 20 [facility] Urea Nitrogen (BUN) 15 9 - 16 mg/dL [facility] Creatinine, Serum 0.80 0.5 - 1.4 mg/dL [facility] Estimated Glomerular Filt Rate >60 [facility] Comment:Chronic Kidney Disea se: Estimated GFR < 60 mL/min/1.32s3Wzovwo Kidney Disease: Estimated GFR < 15 mL/min/1.73m2 Glucose 113 60 - 115 mg/dL [facility] Calcium 9.7 8.4 - 10.2 mg/dL [facility] 11/02/2024 2:34 PM EST 11/02/2024 2:34 PM EST Generic External Data Provider LAB BLOOD ORDERAB LES Final Result Performing Organization Address [facility]/ZIP Co de Phone Number [facility] [address] [place] [address] [phone] * (ABNORMAL) Lipid Panel, Standard (04/21/2024 10:01 AM EDT) Triglycerides 98 <150 mg/dL [facility] Comment:Desirable Triglyceri de: less than 150 mg/dLBorderline High Triglyceride 150-199 mg/dLHigh Triglyceride: 200-499 mg/dLVery High Triglyceride: greater than or equal to 5OO mg/dL Cholesterol 96 <200 mg/dL [facility] Comment:Desirable Cholestero l: less than 200 mg/dLBorderline High Cholesterol: 200-239 mg/dLHigh Cholesterol: greater than 239 mg/dL LDL Cholesterol Calculated 43 <100 mg/dL [facility] Comment:Desirable LDL: less than 100 mg/dLNear Optimal/Above Optimal LDL: 110- 129 mg/dLBorderline High LDL: 130-159 mg/dLHigh LDL: 160-189 mg/dLVery High LDL: greater than or equal to 190 mg/dL HDL Cholesterol 34(L) >40 mg/dL [facility] Comment:Desirable HDL: great er than 40 mg/dL Note: This HDL assay may give artificially low results in patients with liver disease. Blood Venous blood specimen / Unknown 04/21/2024 10:01 AM EDT 04/21/2024 11:11 AM EDT Farrah Jackson DO LAB BLOOD ORDERABLES Final R esult [facility] [address] [place] [phone] * (ABNORMAL) POCT HGB A1C (04/21/2024 9:10 AM EDT) Hemoglobin A1C 6.6(A) 4.0 - 6.0 % QC Media Lot # [id number] Lot# Expiration Date ,769 Blood 04/21/2024 9:10 AM EDT Farrah Jackson DO POINT OF CARE TEST ENTER/NILESH T ORDERABLES Final Result * Cologuard?? colon cancer screening (08/26/2023 12:36 PM EDT) Cologuard Result Negative Negative 09/02/20 1:54 AM EST [facility] (CLIA #:[id number]) Comment: NEGATIVE TEST RESULT. A negative Cologuard result indicates a low likelihood that a colorectal cancer (CRC) or advanced adenoma (adenomatous polyps with more advanced pre-malignant features) ??is present. The chance that a person with a negative Cologuard test has a colorectal cancer is less than 1 in 1500 (negative predictive value >99.9%) or has an ??advanced adenoma is less than ??5.3% (negative predictive value 94.7%). These data are based on a prospective cross-sectional study of 10,000 individuals at average risk for colorectal cancer who were screened with both Cologuard and colonoscopy. (Liang Toussaint et al, N Engl J Med 2014;370(14):1286- 1297) The normal value (reference range) for this assay is negative. COLOGUARD RE-SCREENING RECOMMENDATION: Periodic colorectal cancer screening is an important part of preventive healthcare for asymptomatic individuals at average risk for colorectal cancer. ??Following a negative Cologuard result, the [place] [employer] and U.S. Multi-Society Task Force screening guidelines recommend a Cologuard re-screening interval of 3 years. References: [place] [employer] Guideline for Colorectal Cancer Screening: https://www.cancer.org/cancer/gkykl-znbjov-qvbilo/kriwozzsn-gzdstvmhh-daceyil/ac s-rec ommendations.html.; Matty DK, Krys HALL, Shelton CoreaK, Colorectal Cancer Screening: Recommendations for Physicians and Patients from the U.S. Multi-Society Task Force on Colorectal Cancer Screening , Am J Gastroenterology 2017; 112:6246-0559. TEST DESCRIPTION: Composite algorithmic analysis of stool DNA-biomarkers with hemoglobin immunoassay. ?? Quantitative values of individual biomarkers are not reportable and are not associated with individual biomarker result reference ranges. Cologuard is intended for colorectal cancer screening of adults of either sex, 45 years or older, who are at average-risk for colorectal cancer (CRC). Cologuard has been approved for use by the U.S. FDA. The performance of Cologuard was established in a cross sectional study of average-risk adults aged 50-84. Cologuard performance in patients ages 45 to 49 years was estimated by sub-group analysis of near-age groups. Colonoscopies performed for a positive result may find as the most clinically significant lesion: colorectal cancer [4.0%], advanced adenoma (including sessile serrated polyps greater than or equal to 1cm diameter) [20%] or non- advanced adenoma [31%]; or no colorectal neoplasia [45%]. These estimates are derived from a prospective cross-sectional screening study of 10,000 individuals at average risk for colorectal cancer who were screened with both Cologuard and colonoscopy. (Liang Champion al, N Engl J Med 2014;370(14):0696-8973.) Cologuard may produce a false negative or false positive result (no colorectal cancer or precancerous polyp present at colonoscopy follow up). A negative Cologuard test result does not guarantee the absence of CRC or advanced adenoma (pre-cancer). The current Cologuard screening interval is every 3 years. ([place] [employer] and U.S. Multi-Society Task Force). Cologuard performance data in a 10,000 patient pivotal study using colonoscopy as the reference method can be accessed at the following location: www.Health Data Vision/results. Additional description of the Cologuard test process, warnings and precautions can be found at www.[employer] With FetchrdThe Shop Expert. Stool specimen (specimen) 08/26/2023 12:36 PM EDT 08/27/2023 6:19 PM EDT Farrah Jackson DO LAB MOLECULAR DIAGNOSTICS OR DERABLES Final Result [facility] (CLIA #:[id number]) [place] [address], * Hepatitis C Antibody with Reflex to HCV RNA,PCR w/Reflex to Genotype, LiPA (02/10/2023 12:11 PM EDT) Hepatitis C Antibody NON-REACT EYAD NON-REACT EYAD [facility] Diagnost Index 0.08 <1.00 [facility] Comment: HCV antibody was non-reactive. There is no laboratory evidence of HCV infection. In most cases, no further action is required. However, if recent HCV exposure is suspected, a test for HCV RNA (test code 95070) is suggested. For additional information, please refer to http://education.ClearLine Mobile.Viewdle/faq/RCH496 (This link is being provided for informational/ educational purposes only.) 02/10/2023 12:1 1 PM EDT 02/10/2023 12:13 PM EDT Narrative [facility] - 02/11/2023 7:21 PM EDT FASTING:NO FASTING: NO Farrah Jackson DO LAB BLOOD ORDERABLES Final R esult [facility] [address], [place] [address] [facility] [address] [place] [address] from Last 3 Months or Most Recently Relevant to Health Maintenance Insurance [facility] ST[facility] [place] [id number] [place] [address] Care Teams Gate Tender Relationship Specialty Start Date End Date Farrah Jackson DO [address] [place] [phone] PCP - General Family Medicine 10/25/18
--- OUTSIDE RECORDS SUMMARY | 2025-01-03 09:46 | XMS_ITS | Encounter Summary ---
Author Organization [employer] Address [address] [facility] [address] [place] [address] Care Team Providers Care Fryline Attendant Name Role Phone Farrah Jackson DO Primary Care Provider + [phone] Reason for Visit * Reason Onset Date Comments Recall Letter 12/29/2024 Recall Letter se nt 12/29/24. Encounter Details Date Type Department Care Team ([facility] Contact Info) Description 12/29/2024 Telephone [facility] [address] [place], [place] [phone] Farrah Jackson DO [address] [place] [address] Recall Letter (Recall Letter sent 12/29/24.) Social History Tobacco Use Types Packs/Day Years [...] AM EDT documented as of this encounter Miscellaneous Notes * Telephone Encounter - Magda Dennison [place] - 12/29/2024 2:52 PM EST .Telephone call to patient to schedule a recall appointment. No answer, unable to leave voicemail (mailbox full).. Recall letter sent. Visit type: Office visit Appointment notes: due: December With: [facility] Please schedule appointment above if patient returns call documented in this encounter Plan of Treatment Not on file documented as of this encounter Visit Diagnoses Not on filedocumented in this encounter Additional Health Concerns Assessment Noted Time PHQ-9 Depression Total Score: 2 04/21/20 24 8:50 AM EDT documented as of this encounter Care Teams Fryline Attendant Relationship Specialty Start Date End Date Farrah Jackson DO [address] [place] [address] PCP - General Family Medicine 10/25/18 documented as of this encounter
--- OUTSIDE RECORDS SUMMARY | 2025-01-03 09:46 | XMS_ITS | Encounter Summary ---
Author Organization [employer] Address [address] [facility] [address] [place] [address] Care Team Providers Care Computer Aide Name Role Phone Farrah Jackson DO Primary Care Provider + [phone] Reason for Visit * Reason Onset Date Comments Nurse Triage 12/28/2023 Encounter Details Date Type Department Care Team ([facility] st Contact Info) Description 12/28/2023 Telephone [facility] MED[facility] [address] [place], [place] [phone] Farrah Jackson DO [address] [place], [place] [phone] Nurse Triage Social History Tobacco Use Types Packs/Day Years Used Date Smoking Tobacco: Former Passive Smoke Exposure: Past Smokeless Tobacco: Never Alcohol Use Standard Drinks/Week Comments Never 0 (1 standard drink = 0.6 oz pur e alcohol) PHQ-2 Answer Date Recorded Patient Health Questionnaire-2 Score 0 03/30/2023 Housing Stability Answer Date Recorded What is your housing situation today? I have ayden chaney 08/25/[address] you li ve. Do you have problems with any of the following? None of the above 08/25/2023 Food Insecurity Answer Date Recorded Within the past 12 months, y ou worried that your food would run out before you got money to buy more: Never True 08/25/2023 Within the past 12 months,th e food you bought just didn't last and you didn't have enough money to get more: Never True 10/2022 Transportation Answer Date Recorded In the past 12 months, has l ack of transportation kept you from medical appts, meetings, work or from getting things needed for daily living? No 08/25/2023 Utilities Answer Date Recorded In the past 12 months, has t he electric, gas, oil or water company threatened to shut off services in your home? No 08/25/2023 Depression Answer Date Recorded Patient Health Questionnaire-2 Score 0 03/30/2023 Sex and Gender Information Value Date Recorded Sex Assigned at Male 08/24/2022 10:16 AM EDT Legal Sex Male 10:16 AM EDT Gender Identity Male 08/24/2022 10:16 AM EDT Sexual Orientation Choose not to disclose 2021 10:16 AM EDT documented as of this encounter Miscellaneous Notes * Telephone Encounter - Sapna Justin RN - 12/28/2023 12:22 PM EST Triage call Pt reports burning with urination for last week. Pt reports it will burn when urinatingthen the next couple of times it will be OK. Pt may not be drinking adequate liquids. Pt reports has had this before and antibiotics helped. Unable to find recent OV for UTI. Pt is advised to come [facility] for provider to see Pt. Pt insurance is not active at this time and Pt is waiting for medicare to start. Advised to stop at front office coordinator to speak about insurance before going to [facility] . Pt agreed with disposition and advised to increase liquids to 6-8 glasses daily. Protocol Used: Urinary Symptoms (Adult) Protocol-Based Disposition: See in Office or Video Visit Today or Tomorrow Video visit not offered Positive Triage Question: * Patient wants to be seen * All higher-acuity triage questions were negative Care Advice Discussed: * Reasons To Call Back - Fever occurs - Pain or burning with urination - You become worse * Telephone Encounter - Vianca Archer - 12/28/2023 11:52 AM EST Symptom: Urination Pain Outcome: Schedule an urgent appointment (within 1 hour) or talk to a nurse or provider soon Reason: Severe pain now The caller accepted this outcome Please contact pt at [phone] documented in this encounter Plan of Treatment Not on file documented as of this encounter Visit Diagnoses Not on filedocumented in this encounter Care Teams Computer Aide Relationship Specialty Start Date End Date Farrah Jackson DO [address] [place] [address] PCP - General Family Medicine 10/25/18 documented as of this encounter
--- OUTSIDE RECORDS SUMMARY | 2025-01-03 09:46 | XMS_ITS | Encounter Summary ---
Author Organization [employer] Address [address] [facility] 7t [place] [address] Care Team Providers Care Grinding Wheel Inspector Name Role Phone Farrah Jackson DO Primary Care Provider + [phone] Reason for Visit * Reason Onset Date Comments pain medication to pharmacy 05/22/2024 Encounter Details Date Type Department Care Team (Late st Contact Info) Description 05/22/2024 Telephone [facility] [address] [place] [address] Farhad Knott, DMD [address] [place] [address] pain medication to pharmacy Social History Tobacco Use Types Packs/Day Years [...] Recorded Patient Health Questionnaire-2 Score 0 04/21/2024 Sex and Gender Information Value Date Recorded Sex Assigned at Male 08/24/2022 10:16 AM EDT Legal Sex Male 10:16 AM EDT Gender Identity Male 08/24/2022 10:16 AM EDT Sexual Orientation Choose not to disclose 2021 10:16 AM EDT documented as of this encounter Miscellaneous Notes * Telephone Encounter - Farhad Knott DMD - 05/22/2024 9:44 AM EDT Hi, I will send in pain med, but please schedule him appointment for exo EREN * Telephone Encounter - Landy Mohr - 05/22/2024 9:29 AM EDT Patient came in on 05/09 for dental emergency. Was scripted medication and he felt better but is inpain again. Has not gotten the call yet from dental to schedule appt for ext. Would like to know ifmedication can be sent in to pharmacy to hold him over until ext appt DR documented in this encounter Plan of Treatment Not on file documented as of this encounter Visit Diagnoses Not on filedocumented in this encounter Additional Health Concerns Assessment Noted Time PHQ-9 Depression Total Score: 2 04/21/20 24 8:50 AM EDT documented as of this encounter Care Teams Grinding Wheel Inspector Relationship Specialty Start Date End Date Farrah Jackson DO [address] [place] [address] PCP - General Family Medicine 10/25/18 documented as of this encounter
--- OUTSIDE RECORDS SUMMARY | 2025-01-03 09:46 | XMS_ITS | Encounter Summary ---
Author Organization [employer] Address [address] [facility] [address] [place] [address] Care Team Providers Care Varitypist Name Role Phone KrissyFarrah knight Primary Care Provider + [phone] Reason for Visit * Reason Comments Med Refill Encounter Details Date Type Department Care Team ([facility] st Contact Info) Description 11/19/2023 Refill [facility] [address] [place], [place] [phone] Juana Wilson MD [address] [place], [place] [phone] Social History Tobacco Use Types Packs/Day Years [...] on filedocumented in this encounter Care Teams Varitypist Relationship Specialty Start Date End Date Farrah Jackson DO [address] [place] [address] PCP - General Family Medicine 10/25/18 documented as of this encounter
--- OUTSIDE RECORDS SUMMARY | 2025-01-03 09:46 | XMS_ITS | Encounter Summary ---
Author Organization [employer] Address [address] [facility] [address] [place] [address] Care Team Providers Care Fresh Foods Technician Name Role Phone Farrah Jackson DO Primary Care Provider + [phone] Reason for Visit * Reason Comments Med Refill Encounter Details Date Type Department Care Team ([facility] st Contact Info) Description 12/09/2024 Refill [facility] MEDICINE [address] [place], [place] [phone] Farrah Jackson DO [address] [place], [place] [phone] Primary hypertension Social History Tobacco Use Types Packs/Day Years [...] documented as of this encounter Visit Diagnoses Diagnosis Primary hypertension Unspecified essential hypertension documented in this encounter Additional Health Concerns Assessment Noted Time PHQ-9 Depression Total Score: 2 04/21/20 24 8:50 AM EDT documented as of this encounter Care Teams Fresh Foods Technician Relationship Specialty Start Date End Date Farrah Jackson DO [address] [place] [address] PCP - General Family Medicine 10/25/18 documented as of this encounter
--- OUTSIDE RECORDS SUMMARY | 2025-01-03 09:46 | XMS_ITS | Encounter Summary ---
Author Organization [employer] Address [address] [facility] 7t [place] [address] Care Team Providers Care Digital Strategist Name Role Phone Farrah Jackson DO Primary Care Provider + [phone] Reason for Visit * Reason Comments Med Refill Encounter Details Date Type Department Care Team ([facility] st Contact Info) Description 11/14/[address] [facility] MEDICINE [address] [place], [place] [phone] Farrah Jackson DO [address] [place], [place] [phone] Social History Tobacco Use Types Packs/Day Years [...] on filedocumented in this encounter Care Teams Digital Strategist Relationship Specialty Start Date End Date Farrah Jackson DO [address] [place] [address] PCP - General Family Medicine 10/25/18 documented as of this encounter
--- NOTE | 2025-01-03 09:47 | PC.NURSE ---
Pt desat into 88%, placed on 2L O2 NC with good effect
--- NOTE | 2025-01-03 10:00 | ED.URI ---
HPI - URI/Sore Throat General Chief Complaint: Upper Respiratory Symptoms Stated Complaint: Diff Breathing Time Seen by Provider: 01/03/25 09:03 History of Present Illness HPI Narrative: Patient is 64-year-old male presents today with having coughing upper respiratory symptoms that is been ongoing. 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 Patient has a history of diabetes. Coughing productive of yellowish sputum. From home. No vomiting. No diaphoresis. Chest pain only with coughing. No leg swelling. No history of smoking. Positive history of diabetes positive history of hypertension no history of [place] no history of strokes. History of having a defibrillator. Related Data Home Medications ?Medication ?Instructions ?Recorded ?Confirmed atorvastatin 80 mg tablet (Lipitor) 80 mg PO DAILY 08/20/20 11/02/24 metformin 500 mg tablet 1,000 mg PO BID 08/20/20 11/02/24 omega-3 fatty acids 1,000 mg 1,000 mg PO BID 08/20/20 11/02/24 capsule albuterol sulfate 90 mcg/actuation 1 inh inhalation QID PRN Shortness 11/22/20 11/02/24 aerosol inhaler Of Breath Or Wheezing carvedilol 12.5 mg tablet 18.75 mg PO BID 05/20/23 11/02/24 multivitamin 1 tab PO DAILY 05/20/23 11/02/24 sertraline 25 mg tablet 25 mg PO DAILY 05/20/23 11/02/24 Previous Rx's ?Medication ?Instructions ?Recorded budesonide-formoterol HFA 160 2 puff inhalation BID #10.2 grams 06/11/21 mcg-4.5 mcg/actuation aerosol inhaler (Symbicort) cyclobenzaprine 10 mg tablet 10 mg PO Q8H PRN Muscle spasm #14 12/08/21 tabs hydrocodone 5 mg-acetaminophen 325 1 tab PO Q4-6H PRN pain #30 tabs 05/25/23 mg tablet sacubitril 49 mg-valsartan 51 mg 1 tab PO BID 90 days #180 tabs 04/14/24 tablet (Entresto) meloxicam 7.5 mg tablet 7.5 mg PO DAILY #14 tabs 05/24/24 furosemide 20 mg tablet 20 mg PO DAILY #90 tabs 07/21/24 spironolactone 25 mg tablet 25 mg PO DAILY #90 tabs 09/19/24 dapagliflozin propanediol 10 mg 10 mg PO DAILY #90 tabs 12/22/24 tablet (Farxiga) albuterol sulfate 90 mcg/actuation 2 puff inhalation QID PRN 01/03/25 aerosol inhaler shortness of breath or wheezing 1 month #8.5 grams Allergies Allergy/AdvReac Type Severity Reaction Status Date / Time oxycodone AdvReac Intermediate vomiting, Verified 01/03/25 09:05 delusions Review of Systems Review of Systems: Positive chest pain positive coughing PMFSH Past Medical History Attestation statement: The following information was validated with the patient. Medical History Pacemaker Gout [id number] deficiency Encounter for discussion regarding implantable cardioverter-defibrillator Cardiomyopathy COPD (chronic obstructive pulmonary disease) Essential hypertension PVC (premature ventricular contraction) MARVA (obstructive sleep apnea) Carcinoid tumor High cholesterol Prostate enlargement Diabetes Surgical History History of surgical procedure (~2022) History of prostate surgery Hx of colonoscopy History of bronchoscopy History of lobectomy of lung Family History Family History Son No problems noted. Father No problems noted. 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 Oriented X3. No acute distress. Eyes: Pupils equal, round and reactive to light. ENT: Pharynx normal. Neck: Normal inspection. Neck supple. No lymph nodes noted. No crepitus CVS: Normal heart rate and rhythm. Pulses normal. Normal S1 and S2 Respiratory: No respiratory distress. Breath sounds normal. No Wheezing. No rales Abdomen: Soft and nontender. No rigidity. No distention. good BS x4 Skin: Skin warm and dry. Normal skin color. Normal skin turgor. Extremities: No lower extremity edema. Neurovascular intact to all extremities. No Lacerations. No Rash Neuro: Oriented X 3. No motor deficit. No sensory deficit. Moving all extermities. No slurred speech Medications Administered Discontinued Medications Generic Name Dose Route Start Last Admin Trade Name Freq PRN Reason Stop Dose Admin Ceftriaxone Sodium 1 gm 01/03/25 10:12 01/03/25 10:30 Ceftriaxone Sodium 1 Gm Vial IVPUSH 01/03/25 10:13 1 gm ONCE ONE Administration Furosemide 40 mg 01/03/25 14:40 01/03/25 15:11 Furosemide 40 Mg/4 Ml Vial IVPUSH 01/03/25 14:41 40 mg ONCE ONE Administration Protocol Azithromycin 500 mg/ Sodium 250 mls @ 125 mls/hr 01/03/25 10:12 01/03/25 12:37 Chloride IV 01/03/25 12:11 Infused ONCE ONE Infusion Medical Decision Making Medical Decision Making [facility] Narrative: Patient is 64 years old presented today with having increased shortness of breath. Had a history of left lung resection. Question coughing earlier. COVID flu RSV were negative. Radiology interpretation of patient's chest x-ray actually for a scarring in the left upper space question CHF. Patient BNP elevated at 800. Patient is COVID flu RSV were negative. White count was normal. Less likely patient has an infection more likely secondary to congestive heart failure. My interpretation of patient's EKG showed a sinus rhythm heart rate is 90 MA QRS QTC normal no acute ST segment elevation patient's EKG discussed with pocket and pulley machine operator. Patient's case consulted with patient's primary pocket and pulley machine operator. Has a history of AICD. The AICD was interrogated. Previous results was reviewed. Has an EF of 25%. Patient ambulated well in the emergency department satting 93-94% on ambulation without any difficulties. Joint decision was made with patient and pocket and pulley machine operator to give a dose of Lasix here in the ED. increase the dose of spironolactone to 25 mg b.i.d. for the next 3 days. Close follow-up on an outpatient basis with Cardiology. Patient feel comfortable with this plan and with take a low-salt diet. Currently in stable condition. Will discharge home. Differential Diagnosis Differential Diagnoses: The differential diagnosis associated with the presentation includes Admission/Observation Consideration of admission/observation: Escalation of care including admission/observation considered Consult Healthcare Provider Management of the patient was discussed with: Biometric Fingerprinting Technician ( cardiology) Lab Data MDM Lab Attestation statement: I reviewed the patient's lab results. 01/03/25 10:20 01/03/25 10:26 Labs: Lab Results 01/03/25 01/03/25 Range/Units 10:20 10:26 WBC 10.2 (4.8-10.8) X10*3/uL RBC 4.72 (4.60-5.80) X10*6/uL Hgb 14.2 (14.0-18.0) g/dl Hct 43.8 (42.0-52.0) % MCV 92.8 (80.0-98.0) fL MCH 30.1 (27.0-33.0) pg MCHC 32.4 (31.0-36.0) g/dl RDW 16.7 H (11.0-16.0) % Plt Count 168 (160-400) X10*3/uL MPV 11.4 (9.4-12.4) fL Immature Gran % (Auto) 0.4 (0.0-0.4) % Neut % (Auto) 69.7 (45-73) % Lymph % (Auto) 18.9 L (20-40) % [place] % (Auto) 9.5 (2-11) % Eos % (Auto) 0.8 (0-4) % Baso % (Auto) 0.7 (0-2) % Lymph # (Auto) 1.9 (1.2-4.9) X10*3/uL [place] # (Auto) 1.0 (0.1-1.2) X10*3/uL Eos # (Auto) 0.1 (0.0-0.4) X10*3/uL Baso # (Auto) 0.1 (0.0-0.2) X10*3/uL Abs Immat Gran (auto) 0.04 H (0.00-0.03) X10*3/uL Absolute Neuts (auto) 7.1 (2.0-8.3) x10*3/uL Absolute Nucleated RBC 0.000 (0.0-0.012) X10*3/uL Nucleated RBC % (auto) 0.0 (0.0-0.2) /100WBC Sodium 143 (135-145) mmol/L Potassium 4.1 (3.3-5.1) mmol/L Chloride 111 H (96-108) mmol/L Carbon Dioxide 25 (22-29) mmol/L Anion Gap 11 L (12-20) BUN 16 (9-16) mg/dL Creatinine 0.90 (0.5-1.4) mg/dL Estim Creat Clear Calc 75.4 Estimated GFR > 60 Random Glucose 121 H (60-115) mg/dL Lactic Acid 1.6 (0.5-2.0) mmol/L Calcium 9.1 D (8.4-10.2) mg/dL Total Bilirubin 1.2 H (0.0-1.0) mg/dL Direct Bilirubin 0.4 (0.0-0.5) mg/dL AST 24 (5-37) U/L ALT 19 (0-40) U/L Alkaline Phosphatase 66 (39-117) U/L Troponin I High Sens 15.1 (<3.5-35.0) ng/L B-Natriuretic Peptide 813 H (<100) pg/mL Total Protein 7.1 (6.5-8.0) g/dL Albumin 3.9 (3.5-5.0) g/dL Influenza Type A (PCR) NEGATIVE (Negative) Influenza Type B (PCR) NEGATIVE (Negative) RSV RNA Qual (PCR) NEGATIVE (Negative) SARS-CoV-2 RNA (RT-PCR) NEGATIVE (Negative) Independent Interpretation I performed an independent interpretation of an: EKG ( my interpretation of patient's EKG as above.) and Plain X-Ray ( Mild congestive heart failure) Radiology Impression Discussion of test interpretation with radiology: I have reviewed the radiologist's reading. Independent Historian Clinical information obtained from an independent historian. History obtained from or confirmed by: Spouse External Record Review External record reviewed: Inpatient record previous echo report. Pacemaker was interrogated. Pacemaker interrogation report Chronic Conditions Patient?s care impacted by: Diabetes and Hypertension congestive heart failure Discharge Plan Discharge Clinical Impression: Congestive heart failure Patient Disposition: Home, Self-Care Instructions: Heart Failure (ED) Additional Instructions: please increase the spironolactone to twice a day for the next 3 days. Please follow a strict low-salt diet Prescriptions: New albuterol sulfate 90 mcg/actuation HFA aerosol inhaler 2 puff inhalation QID PRN (Reason: shortness of breath or wheezing) 30 Days Qty: 8.5 0RF No Action budesonide-formoterol [Symbicort] 160-4.5 mcg/actuation HFA aerosol inhaler 2 puff inhalation BID Qty: 10.2 11RF Entresto 49-51 mg tablet 1 tab PO BID 90 Days Qty: 180 3RF furosemide 20 mg tablet 20 mg PO DAILY Qty: 90 3RF spironolactone 25 mg tablet 25 mg PO DAILY Qty: 90 3RF Farxiga 10 mg tablet 10 mg PO DAILY Qty: 90 3RF albuterol sulfate 90 mcg/actuation HFA aerosol inhaler 1 inh inhalation QID PRN (Reason: Shortness Of Breath Or Wheezing) cyclobenzaprine 10 mg tablet 10 mg PO Q8H PRN (Reason: Muscle spasm) Qty: 14 0RF multivitamin Tablet 1 tab PO DAILY sertraline 25 mg Tablet 25 mg PO DAILY carvedilol 12.5 mg tablet 18.75 mg PO BID hydrocodone-acetaminophen 5-325 mg tablet 1 tab PO Q4-6H PRN (Reason: pain) Qty: 30 0RF Rx Instructions: Partial Fill upon patient request. meloxicam 7.5 mg tablet 7.5 mg PO DAILY Qty: 14 0RF omega-3 fatty acids 1,000 mg capsule 1,000 mg PO BID atorvastatin [Lipitor] 80 mg tablet 80 mg PO DAILY metformin 500 mg tablet 1,000 mg PO BID Referrals: Tomer Carolina MD [Physician] - 01/05/25 Print Language: Italian
[2025-01-03 10:28] LABS: MANUAL DIFF FLAG NO
[2025-01-03] MEDS: cefTRIAXone sodium 1 GM VIAL IVPUSH (10:30)
[2025-01-03] MEDS: Azithromycin 500 MG in 0.9 % Sodium Chloride 250 ML 125 MG IV (10:30)
[2025-01-03 10:32] LABS: Basophils Absolute Auto 0.1 X10*3/uL (0.0-0.2); Basophils Percent Auto 0.7 % (0-2); Eosinophils Absolute Auto 0.1 X10*3/uL (0.0-0.4); Eosinophils Percent Auto 0.8 % (0-4); Hematocrit 43.8 % (42.0-52.0); Hemoglobin 14.2 g/dl (14.0-18.0); Imm Gran Abs Auto 0.04 X10*3/uL (0.00-0.03); Imm Gran Pct Auto 0.4 % (0.0-0.4); Lymphocytes Absolute Auto 1.9 X10*3/uL (1.2-4.9); Lymphocytes Percent Auto 18.9 % (20-40); Mean Corpuscular HGB Conc 32.4 g/dl (31.0-36.0); Mean Corpuscular Hemoglobin 30.1 pg (27.0-33.0); Mean Corpuscular Volume 92.8 fL (80.0-98.0); Mean Platelet Volume 11.4 fL (9.4-12.4); Monocytes Percent Auto 9.5 % (2-11); Neutrophils Absolute Auto 7.1 x10*3/uL (2.0-8.3); Neutrophils Percent Auto 69.7 % (45-73); Platelet Count 168 X10*3/uL (160-400); Red Blood Count 4.72 X10*6/uL (4.60-5.80); Red Cell Distribution Width 16.7 % (11.0-16.0); White Blood Count 10.2 X10*3/uL (4.8-10.8)
--- NOTE | 2025-01-03 10:42 | PC.NURSE ---
Pt presents to ED from home, reporting cough and SOB for the past few days worsening. Pt coughing up yellow sputum.No fevers, N/V/D, CP. Alert and oriented, breathing even and unlabored while at rest. Has periods of desat to high 80s. Has defib on left side of chest. Denying pain.
[2025-01-03 10:45] LABS: Lactic Acid 1.6 mmol/L (0.5-2.0)
[2025-01-03 10:53] LABS: Alanine Aminotransferase 19 U/L (0-40); Albumin Level 3.9 g/dL (3.5-5.0); Alkaline Phosphatase 66 U/L (39-117); Anion Gap 11 (12-20); Aspartate Amino Transferase 24 U/L (5-37); Bilirubin Direct 0.4 mg/dL (0.0-0.5); Bilirubin Total 1.2 mg/dL (0.0-1.0); Blood Urea Nitrogen 16 mg/dL (9-16); Calcium 9.1 mg/dL (8.4-10.2); Carbon Dioxide 25 mmol/L (22-29); Chloride 111 mmol/L (96-108); Creatinine Clr Calc Pharmacy 75.4; Estimated Glomerular Filt Rate > 60; Glucose Random 121 mg/dL (60-115); Potassium 4.1 mmol/L (3.3-5.1); Sodium 143 mmol/L (135-145); Total Protein 7.1 g/dL (6.5-8.0)
[2025-01-03 10:56] LABS: Troponin-I High Sensitivity 15.1 ng/L (<3.5-35.0)
[2025-01-03 11:32] LABS: Influenza A PCR NEGATIVE (Negative); Influenza B PCR NEGATIVE (Negative); Resp Syncy Virus RNA Qual PCR NEGATIVE (Negative); SARS COV2 PCR INHOUSE NEGATIVE (Negative)
[2025-01-03 13:14] LABS: B Type Natriuretic Peptide 813 pg/mL (<100)
--- NOTE | 2025-01-03 13:37 | PC.NURSE ---
AMBULATION TRIAL DONE, LOWEST SAT 93%, NO SIGNS OF ACUTE DISTRESS
--- NOTE | 2025-01-03 14:42 | ECG_ITS ---
Test Reason : SOB Blood Pressure : */* mmHG Vent. Rate : 93 BPM Atrial Rate : 93 BPM P-R Int : 136 ms QRS Dur : 96 ms QT Int : 376 ms P-R-T Axes : 61 -4 88 degrees QTcB Int : 467 ms Sinus rhythm with occasional Premature ventricular complexes Possible Left atrial enlargement Nonspecific ST and T wave abnormality Abnormal ECG When compared with ECG of 03-Jan-2025 14:50, Premature ventricular complexes are now Present Referred By: Dee Guillermo Electronically Signed By: IMTIAZ BROWN
--- NOTE | 2025-01-03 14:42 | ECG_ITS ---
Test Reason : SOB Blood Pressure : */* mmHG Vent. Rate : 93 BPM Atrial Rate : 93 BPM P-R Int : 130 ms QRS Dur : 96 ms QT Int : 378 ms P-R-T Axes : 56 -5 76 degrees QTcB Int : 469 ms Normal sinus rhythm Possible Left atrial enlargement Nonspecific ST and T wave abnormality Abnormal ECG When compared with ECG of 10-Jun-2024 12:38, Premature ventricular complexes are no longer Present Referred By: Dee Guillermo Electronically Signed By: IMTIAZ BROWN
[2025-01-03] MEDS: Furosemide 40 MG/4 ML VIAL IVPUSH (15:11)
== END 2025-01-03 15:41 | disposition home or self-care (01) ==
PROVIDERS: Emergency Provider Emergency Medicine Emergency Medical Services; PCP Family Medicine
DX: I50.9 Heart failure, unspecified (principal); R06.02 Shortness of breath; R05.9 Cough, unspecified; R94.31 Abnormal electrocardiogram [ECG] [EKG]; Z79.899 Other long term (current) drug therapy; Z03.818 Encounter for observation for suspected exposure to other biological agents ruled out
CPT/HCPCS: 0241U; 36415; 71045; 80048; 80076; 83605; 83880; 84484; 85025; 87040; 93005; 96365; 96366; 96375; 99284; 99285; J0456; J0696; J1940

== ENCOUNTER → 2025-01-03 09:58 | Outpatient (BNV) | payer OTHER, SELFPAY | PROVIDERS: Emergency Provider Emergency Medicine Emergency Medical Services; PCP Family Medicine; Visit Provider Radiology Diagnostic Radiology | DX: I51.7 Cardiomegaly (principal) | CPT/HCPCS: 71045 ==

== ENCOUNTER → 2025-01-03 14:42 | Outpatient (BNV) | payer OTHER, SELFPAY | PROVIDERS: Emergency Provider Emergency Medicine Emergency Medical Services; PCP Family Medicine; Visit Provider Internal Medicine | DX: R94.31 Abnormal electrocardiogram [ECG] [EKG] (principal); R06.02 Shortness of breath; I49.3 Ventricular premature depolarization | CPT/HCPCS: 93010 ==

== ENCOUNTER 2025-01-08 08:24 | Outpatient (AMB) | payer OTHER, SELFPAY ==
--- OUTSIDE RECORDS SUMMARY | 2025-01-08 08:39 | XMS_ITS | Encounter Summary ---
Author Organization [employer] Address [address] [facility] [address] [place] [address] Care Team Providers Care Director Corporate Name Role Phone Farrah Jackson DO Primary Care Provider + [phone] Encounter Details Date Type Department Care Team (Late st Contact Info) Description 01/15/2023 Orders Only [facility] [address] [place], [place] [phone] Farrah Baird LPN Social History Tobacco Use [...] on filedocumented in this encounter Care Teams Director Corporate Relationship Specialty Start Date End Date Farrah Jackson DO [address] [place] [address] PCP - General Family Medicine 10/25/18 documented as of this encounter
--- OUTSIDE RECORDS SUMMARY | 2025-01-08 08:40 | XMS_ITS | Encounter Summary ---
Author Organization [facility] Address [address] [place] [address] Care Team Providers Care Technology Internship Name Role Phone Unavailable Primary Care Provider Unavailabl e Encounter Details Date Type Department Care Team (Late st Contact Info) Description 09/11/2024 Lab Requisition [facility] - Main Lab [address] [place] [address] Krishna Jose MD [address] [facility] [address] [place] [phone] Elevated prostate specific antigen (PSA) Social History [...] Acute inflammation present. 09/20/2024 4:27 PM EST [facility] Gross Description A. Urine, Voided, : [id number] Recd 1 TP CYTO 09/20/2024 4:27 PM EST [facility] Disclaimer Unless otherwise specified, all tissue is 10% NB formalin fixed and paraffin embedded. 09/20/2024 4:27 PM EST [facility] Tissue Urine specimen from urethra / Unknown 09/06/2024 09/11/2024 1:13 PM EST us Krishna Jose MD LAB PATHOLOGY ORDERABLES Final Result [facility] [address] [place] [address], documented in this encounter Visit Diagnoses Diagnosis Elevated prostate specific antigen (PSA) documented in this encounter
--- OUTSIDE RECORDS SUMMARY | 2025-01-08 08:40 | XMS_ITS | Clinical Summary ---
Author Organization [facility] Address [address] [place] [phone] Phone Care Team Providers Care Laminated Plastics Assembler And Gluer Name Role Phone Unavailable Primary Care Provider [...]
--- OUTSIDE RECORDS SUMMARY | 2025-01-08 08:40 | XMS_ITS | Encounter Summary ---
Author Organization [employer] Address [address] [facility] 7[address] [place] [address] Care Team Providers Care Gum Rolling Machine Operator Name Role Phone RenettaFarrah Primary Care Provider + [phone] Encounter Details Date Type Department Care Team (Late st Contact Info) Description 01/03/2025 Orders Only GENERIC EXTERNAL DATA DEPARTMENT Provider, Generic External Data Social History Tobacco Use Types Packs/Day Years [...] as of this encounter Plan of Treatment Pending Results Name Type Priority Associated Diagnoses Date /Time Blood Culture (First) Microbiology Routine 01/03/2025 10:20 AM EDT Blood Culture (Second) Microbiology Routine 01/03/2025 10:26 AM EDT documented as of this encounter Procedures Procedure Name Priority Date/Time Associated Diagnosis Comments BLOOD CULTURE (SECOND) Routine 01/03/2025 10:26 AM EDT HIGH SENSITIVITY TROPONIN I Routine 01/03/2025 10:26 AM EDT HEPATIC FUNCTION PANEL Routine 01/03/2025 10:26 AM EDT BASIC METABOLIC PANEL Routine 01/03/2025 10:26 AM EDT BLOOD CULTURE (FIRST) Routine 01/03/2025 10:20 AM EDT SARS COV2/INFLUENZA A/B AND RSV RNA QL NAAT Routine 01/03/2025 10:20 AM EDT CBC WITH AUTO DIFFERENTIAL Routine 01/03/2025 10:20 AM EDT B TYPE NATRIURETIC PEPTIDE (BNP) Routine 01/03/2025 10:20 AM EDT LACTIC ACID Routine 01/03/2025 10:20 AM EDT XR CHEST 1 VIEW Routine 01/03/2025 9:58 AM EDT documented in this encounter Results * High Sensitivity Troponin I (01/03/2025 10:26 AM EDT) TROPONIN I HIGH SENSITIVITY 15.1 <3.5 - 35.0 ng/L [facility] Comment:The [place]wright high sens itivity Troponin-I results should beused in conjunction with other diagnostic information suchas ECG, clinical observations and information, and patientsymptoms to aid in the diagnosis of NH. 01/03/2025 10:2 6 AM EDT 01/03/2025 10:29 AM EDT us Generic External Data Provider LAB BLOOD ORDERAB LES Final Result [facility] [address] [place], [place] [phone] * (ABNORMAL) Basic Metabolic Panel (01/03/2025 10:26 AM EDT) [facility] Sodium 143 135 - 145 mmol/L [facility] Potassium 4.1 3.3 - 5.1 mmol/L [facility] Chloride 111(H) 96 - 108 mmol/L [facility] Carbon Dioxide 25 22 - 29 mmol/L [facility] Anion Gap 11(L) 12 - 20 [facility] Urea Nitrogen (BUN) 16 9 - 16 mg/dL [facility] Creatinine, Serum 0.90 0.5 - 1.4 mg/dL [facility] Creatinine Clr Calc Pharmacy 75.4 [facility] Comment:eGFR (calculated fro m the MDRD study equation) and eCrCl(calculated from the Cockcroft-Gault equation) are based ondifferent parameters and may not yield comparable results.If eCrCl result is absurd, please check patient'sheight/weight. Estimated Glomerular Filt Rate >60 [facility] Comment:Chronic Kidney Disea se: Estimated GFR < 60 mL/min/1.12w4Cawczx Kidney Disease: Estimated GFR < 15 mL/min/1.73m2 Glucose 121(H) 60 - 115 mg/dL [facility] Calcium 9.1 8.4 - 10.2 mg/dL [facility] 01/03/2025 10:2 6 AM EDT 01/03/2025 10:29 AM EDT us Generic External Data Provider LAB BLOOD ORDERAB LES Final Result Performing Organization Address [facility]/ZIP Co de Phone Number [facility] [address] [place] [phone] * (ABNORMAL) Hepatic Function Panel (01/03/2025 10:26 AM EDT) Bilirubin, Total 1.2(H) 0.0 - 1.0 mg/dL [facility] Bilirubin, Direct 0.4 0.0 - 0.5 mg/dL [facility] Aspartate Amino Transferase 24 5 - 37 U/L [facility] Alanine Aminotransferase 19 0 - 40 U/L [facility] Total Protein 7.1 6.5 - 8.0 g/dL [facility] Albumin Level 3.9 3.5 - 5.0 g/dL [facility] Alkaline Phosphatase 66 39 - 117 U/L [facility] 01/03/2025 10:2 6 AM EDT 01/03/2025 10:29 AM EDT us Generic External Data Provider LAB BLOOD ORDERAB LES Final Result Performing Organization Address [facility] Co de Phone Number [facility] [address] [place] [phone] * (ABNORMAL) B Type Natriuretic Peptide (BNP) (01/03/2025 10:20 AM EDT) B Type Natriuretic Peptide 813(H) <100 pg/mL [facility] 01/03/2025 10:2 0 AM EDT 01/03/2025 12:48 PM EDT us Generic External Data Provider LAB BLOOD ORDERAB LES Final Result Performing Organization Address [facility]/ZIP Co de Phone Number [facility] [address] [place] [phone] * SARS-CoV-2 RNA, Influenza A/B, and RSV RNA, Ql NAAT (01/03/2025 10:20 AM EDT) Influenza A PCR NEGATIVE Negative [facility] Influenza B PCR NEGATIVE Negative [facility] Resp Syncy Virus RNA Qual PCR NEGATIVE Negative [facility] SARS COV2 PCR NEGATIVE Negative [facility] Comment:All test results mus t be correlated with clinical findings.Negative results do not preclude SARS-CoV2, influenza Avirus, influenza B virus and/or RSV infectionand should not be used as the sole basis for treatment orother patient management decisions. Negative results must becombined with clinical observations, patient history, andepidemiological information.This test has not been evaluated for monitoring treatment ofinfection.This test has been authorized by the FDA under an EmergencyUse Authorization (EUA) for use by authorized laboratories.Testing performed on the [employer] GeneXpert utilizingreal-time RT-PCR.All SARS CoV2 and positive influenza A/B results arereported to [facility]. 01/03/2025 10:2 0 AM EDT 01/03/2025 10:25 AM EDT Generic External Data Provider LAB MICROBIOLOGY - GENERAL ORDERABLES Final Result Performing Organization Address [facility]/ZIP Co de Phone Number [facility] [address] [place] [phone] * Lactic Acid (01/03/2025 10:20 AM EDT) Pathologist [facility] Lactic Acid 1.6 0.5 - 2.0 mmol/L [facility] 01/03/2025 10:2 0 AM EDT 01/03/2025 10:25 AM EDT Generic External Data Provider LAB BLOOD ORDERAB LES Final Result Performing Organization Address [facility]/ZIP Co de Phone Number [facility] [address] [place] [phone] * (ABNORMAL) CBC auto differential (01/03/2025 10:20 AM EDT) White Blood Count 10.2 4.8 - 10.8 X10*3/uL [facility] Red Blood Count 4.72 4.60 - 5.80 X10*6/uL [facility] Hemoglobin 14.2 14.0 - 18.0 g/dl [facility] Hematocrit 43.8 42.0 - 52.0 % [facility] Mean Corpuscular Volume 92.8 80.0 - 98.0 fL [facility] Mean Corpuscular Hemoglobin 30.1 27.0 - 33.0 pg [facility] Mean Corpuscular HGB Conc 32.4 31.0 - 36.0 g/dl [facility] Red Cell Distribution Width 16.7(H) 11.0 - 16.0 % [facility] Platelet Count 168 160 - 400 X10*3/uL [facility] Mean Platelet Volume 11.4 9.4 - 12.4 fL [facility] Neutrophils Percent Auto 69.7 45 - 73 % [facility] Imm Gran Pct Auto 0.4 0.0 - 0.4 % [facility] Lymphocytes Percent Auto 18.9(L) 20 - 40 % [facility] Monocytes Percent Auto 9.5 2 - 11 % [facility] Eosinophils Percent Auto 0.8 0 - 4 % [facility] Basophils Percent Auto 0.7 0 - 2 % [facility] NRBC Pct Auto 0.0 0.0 - 0.2 /100WBC [facility] Neutrophils Absolute Auto 7.1 2.0 - 8.3 x10*3/uL [facility] Imm Gran Abs Auto 0.04(H) 0.00 - 0.03 X10*3/uL [facility] Lymphocytes Absolute Auto 1.9 1.2 - 4.9 X10*3/uL [facility] Monocytes Absolute Auto 1.0 0.1 - 1.2 X10*3/uL [facility] Eosinophils Absolute Auto 0.1 0.0 - 0.4 X10*3/uL [facility] Basophils Absolute Auto 0.1 0.0 - 0.2 X10*3/uL [facility] NRBC Abs Auto 0.000 0.0 - 0.012 X10*3/uL [facility] 01/03/2025 10:2 0 AM EDT 01/03/2025 10:25 AM EDT us Generic External Data Provider LAB BLOOD ORDERAB LES Final Result [facility] [address] [place] [phone] * XR Chest 1 View (01/03/2025 9:58 AM EDT) Anatomical Region Laterality Modality Chest Radiographic Dasia ging 01/03/2025 9:58 AM EDT Narrative 01/03/2025 10:38 AM EDT ? [facility] ?[address] ?[place] [address] ?XRay Report ? Signed ? Patient: Sonny Curiel ?MR#: [id number] ?? [id number] ? : 1960 ?Acct:[id number] ? Age/Sex: 64 / M ?ADM Date: 01/03/25 ? Loc: HO.ED ? Attending Dr: ? Ordering Physician: Dee Guillermo MD ?? Date of Service: 01/03/25 ?? Procedure(s): XR chest 1V ?? Accession Number(s): [id number] ? cc: Dee Guillermo MD; Farrah Jackson DO ? EXAMINATION: ?? XR CHEST ? CLINICAL INFORMATION: ?? cp, cough ? COMPARISON: ?? 12/14/2022. ?? CT angiogram chest 06/10/2024. ? TECHNIQUE: ?? Frontal view of the chest was obtained. ? FINDINGS: ?? Single lead left AICD device in place with lead extending into the ?? right ventricle. ?? There is cardiac enlargement. Mediastinal hilar contours appear normal. ? Postoperative changes to the left upper lobe region with mild left lung ?? volume loss, and stable left upper lobe parenchymal scarring. Mild ?? blunting of the left costophrenic angle is chronic and stable. ?? Subtle Brittany B lines in the peripheral lung bases and minimal haziness ?? of the vasculature, possible mild CHF. ? No focal osseous or soft tissue abnormality. ? XR/XR chest 1V ?? IMPRESSION: ?? 1. AICD device, stable. ?? 2. Probable mild interstitial pulmonary edema. Cardiomegaly. ?? 3. Stable postoperative volume loss and scarring left lung. ? Electronically signed by: ??Burton Ang MD ??01/03/2025 10:35 AM EDT RP ? Dictated By: ?Burton Ang MD ? Signed By: ?<Electronically signed by Burton Ang MD in OV> ?01/03/25 1035 ? DD/ 0958 ? TD/TT: 01/03/25 1012 ? [employer] Developer: ? Procedure Note Janeth, Julio - 01/03/[address] [address] XRay Report Signed Patient: Emily Curiel#: [id number] : 9Acct:[id number] Age/Sex: 64 / MADM Date: 01/03/25 Loc: .ED Attending Dr: Ordering Physician: Dee Guillermo MD Date of Service: 01/03/25 Procedure(s): XR chest 1V Accession Number(s): [id number] cc: Dee Guillermo MD; Farrah Jackson DO EXAMINATION: XR CHEST CLINICAL INFORMATION: cp, cough COMPARISON: 12/14/2022. CT angiogram chest 06/10/2024. TECHNIQUE: Frontal view of the chest was obtained. FINDINGS: Single lead left AICD device in place with lead extending into the right ventricle. There is cardiac enlargement. Mediastinal hilar contours appear normal. Postoperative changes to the left upper lobe region with mild left lung volume loss, and stable left upper lobe parenchymal scarring. Mild blunting of the left costophrenic angle is chronic and stable. Subtle Brittany B lines in the peripheral lung bases and minimal haziness of the vasculature, possible mild CHF. No focal osseous or soft tissue abnormality. XR/XR chest 1V IMPRESSION: 1. AICD device, stable. 2. Probable mild interstitial pulmonary edema. Cardiomegaly. 3. Stable postoperative volume loss and scarring left lung. Electronically signed by: Burton Ang MD 01/03/2025 10:35 AM EDT RP Dictated By: Burton Ang MD Signed By: <Electronically signed by Burton Ang MD in OV> 01/03/25 1035 DD/ 0958 TD/TT: 01/03/25 1012 [employer] Developer: [facility] External Provider IMG XR PROCEDURES Final Result documented in this encounter Visit Diagnoses Not on filedocumented in this encounter Additional Health Concerns Assessment Noted Time PHQ-9 Depression Total Score: 2 04/21/20 24 8:50 AM EDT documented as of this encounter Care Teams Gum Rolling Machine Operator Relationship Specialty Start Date End Date Farrah Jackson DO [address] [place] [address] PCP - General Family Medicine 10/25/18 documented as of this encounter
--- OUTSIDE RECORDS SUMMARY | 2025-01-08 08:40 | XMS_ITS | Encounter Summary ---
Author Organization [employer] Address [address] [facility] [address]t [place] [address] Care Team Providers Care Tube Coverer Name Role Phone Farrah Jackson DO Primary Care Provider + [phone] Reason for Visit * Reason Onset Date Comments pain medication to pharmacy 05/22/2024 Encounter Details Date Type Department Care Team (Late st Contact Info) Description 05/22/2024 Telephone [facility] [address] [place] [address] Farhad Knott, DMD [address] [place] [address] pain medication to pharmacy Social History Tobacco [...] documented as of this encounter Care Teams Tube Coverer Relationship Specialty Start Date End Date Farrah Jackson DO [address] [place] [address] PCP - General Family Medicine 10/25/18 documented as of this encounter
--- OUTSIDE RECORDS SUMMARY | 2025-01-08 08:40 | XMS_ITS | Encounter Summary ---
Author Organization [employer] Address [address] [facility] 7t [place] [address] Care Team Providers Care Classification Case Manager Name Role Phone Farrah Jackson DO Primary Care Provider + [phone] Reason for Visit * Reason Comments Med Refill Encounter Details Date Type Department Care Team ([facility] st Contact Info) Description 11/14/2023 Refill [facility] [address] [place], [place] [phone] Farrah Jackson DO [address] [place], [place] [phone] Social History Tobacco Use Types Packs/Day Years [...] on filedocumented in this encounter Care Teams Classification Case Manager Relationship Specialty Start Date End Date Farrah Jackson DO [address] [place] [phone] PCP - General Family Medicine 10/25/18 documented as of this encounter
--- OUTSIDE RECORDS SUMMARY | 2025-01-08 08:40 | XMS_ITS | Clinical Summary ---
Author Organization [employer] Address [address] [facility] 7t [place] [address] Care Team Providers Care Field Service Specialist Name Role Phone RenettaFarrah Primary Care Provider [phone] Allergies Active Allergy Reactions Criticality Noted Date [...] , without long-term current use of insulin ([facility]) USE TWICE DAILY DIRECTED 100 strip 8 [...] obstruction 01/08/2017 Chronic gastroesophageal reflux disease 01/09/20 17 Hyperlipidemia 01/08/2017 Essential hypertension 01/08/2017 Microscopic hematuria [...] Encounters Date Type Department Care Team Description 01/03/2025 Orders Only GENERIC EXTERNAL DATA DEPARTMENT Provider, Generic External Data 12/29/2024 Telephone [facility] [address] [facility] [place] [address] Farrah Jackson DO Recall Letter (Recall Letter sent 12/29/24.) 12/09/2024 Refill [facility] [address] [place] [address] Farrah Jackson DO Primary hypertension 11/25/2024 Refill [facility] [address] [facility] [place] [address] Farrah Jackson DO Type 2 diabetes mellitus with microalbuminuria, without long-term current use of insulin ([facility]) 11/09/2024 Telephone [facility] [address] [facility] [place] [address] Velia Mckee, GEOFF Results 11/09/2024 Refill [facility] [address] [facility] [place] [address] Farrah Jackson DO 11/05/2024 Refill [facility] [address] [facility] [place] [address] Farrah Jackson DO 11/02/2024 Orders Only GENERIC EXTERNAL DATA DEPARTMENT Provider, Generic External Data 10/24/2024 Patient Outreach [facility] [address] [place] [address] Farrah Jackson DO Pre-visit Planning ([facility] screening completed on 04/21/2024) 10/10/2024 Telephone [facility] [address] [place] [address] Giselle Emmanuelcindy DEEPTHI October recall from Last 3 Months Immunizations Name Administration [...] your housing situation today? I have ayden sing 04/21/[address] you li [...] 04/21/2024, 04/21/20 24 Lipid Panel 04/21/2025 04/21/2024, 0406/2023, 07/10/2022, Additional history exists SDOH Screening 04/21/2025 [...] Procedure Name Priority Date/Time Associated Diagnosis Comments HIGH SENSITIVITY TROPONIN I Routine 01/03/2025 10:26 AM EDT BASIC METABOLIC PANEL Routine 01/03/2025 10:26 AM EDT HEPATIC FUNCTION PANEL Routine 01/03/2025 10:26 AM EDT BLOOD CULTURE (SECOND) Routine 01/03/2025 10:26 AM EDT B TYPE NATRIURETIC PEPTIDE (BNP) Routine 01/03/2025 10:20 AM EDT LACTIC ACID Routine 01/03/2025 10:20 AM EDT CBC WITH AUTO DIFFERENTIAL Routine 01/03/2025 10:20 AM EDT BLOOD CULTURE (FIRST) Routine 01/03/2025 10:20 AM EDT SARS COV2/INFLUENZA A/B AND RSV RNA QL NAAT Routine 01/03/2025 10:20 AM EDT XR CHEST 1 VIEW Routine 01/03/2025 9:58 AM EDT MAGNESIUM Routine 11/02/2024 2:34 PM EST BASIC [...] microalbuminuria, without long-term current use of insulin ([facility]) PANORAMIC RADIOGRAPHIC IMAGE Routine 10/28/2010 12:00 AM EST from Last 3 Months or Most Recently Relevant to Health Maintenance Results * High Sensitivity Troponin I (01/03/2025 10:26 AM EDT) [facility] TROPONIN I HIGH SENSITIVITY 15.1 <3.5 - 35.0 ng/L [facility] Comment:The [place] high sens itivity Troponin-I results should beused in conjunction with other diagnostic information suchas ECG, clinical observations and information, and patientsymptoms to aid in the diagnosis of [place]. 01/03/2025 10:2 6 AM EDT 01/03/2025 10:29 AM EDT us Generic External Data Provider LAB BLOOD ORDERAB LES Final Result [facility] [address] [place] [phone] * (ABNORMAL) Hepatic Function Panel (01/03/2025 10:26 AM EDT) [facility] Bilirubin, Total 1.2(H) 0.0 - 1.0 mg/dL [facility] Bilirubin, Direct 0.4 0.0 - 0.5 mg/dL [facility] Aspartate Amino Transferase 24 5 - 37 U/L [facility] Alanine Aminotransferase 19 0 - 40 U/L [facility] Total Protein 7.1 6.5 - 8.0 g/dL [facility] Albumin Level 3.9 3.5 - 5.0 g/dL [facility] Alkaline Phosphatase 66 39 - 117 U/L [facility] 01/03/2025 10:2 6 AM EDT 01/03/2025 10:29 AM EDT us Generic External Data Provider LAB BLOOD ORDERAB LES Final Result [facility] [address] [place] [address] [phone] * (ABNORMAL) Basic Metabolic Panel (01/03/2025 10:26 AM EDT) Only the most recent of2 resultswithin the time period is included. Sodium 143 135 - 145 mmol/L [facility] Potassium 4.1 3.3 - 5.1 mmol/L [facility] Chloride 111(H) 96 - 108 mmol/L [facility] Carbon Dioxide 25 22 - 29 mmol/L [facility] Anion Gap 11(L) 12 - 20 [facility] Urea Nitrogen (BUN) 16 9 - 16 mg/dL [facility] Creatinine, Serum 0.90 0.5 - 1.4 mg/dL [facility] Creatinine Clr Calc Pharmacy 75.4 [facility] Comment:eGFR (calculated fro m the MDRD study equation) and eCrCl(calculated from the Cockcroft-Gault equation) are based ondifferent parameters and may not yield comparable results.If eCrCl result is absurd, please check patient'sheight/weight. Estimated Glomerular Filt Rate >60 [facility] Comment:Chronic Kidney Disea se: Estimated GFR < 60 mL/min/1.73b3Jekwgv Kidney Disease: Estimated GFR < 15 mL/min/1.73m2 Glucose 121(H) 60 - 115 mg/dL [facility] Calcium 9.1 8.4 - 10.2 mg/dL [facility] 01/03/2025 10:2 6 AM EDT 01/03/2025 10:29 AM EDT Generic External Data Provider LAB BLOOD ORDERAB LES Final Result Performing Organization Address [facility] Co de Phone Number [facility] [address] [place] [phone] * SARS-CoV-2 RNA, Influenza A/B, and RSV RNA, Ql NAAT (01/03/2025 10:20 AM EDT) Influenza A PCR NEGATIVE Negative [facility] Influenza B PCR NEGATIVE Negative [facility] Resp Syncy Virus RNA Qual PCR NEGATIVE Negative [facility] SARS COV2 PCR NEGATIVE Negative [facility] Comment:All test results mus t [...] use by authorized laboratories.Testing performed on the [employer] GeneXpert utilizingreal-time RT-PCR.All SARS CoV2 and positive influenza A/B results arereported to [facility]. 01/03/2025 10:2 0 AM EDT 01/03/2025 10:25 AM EDT Generic External Data Provider LAB MICROBIOLOGY - GENERAL ORDERABLES Final Result Performing Organization Address [facility]/ZIP Co de Phone Number [facility] [address] [place] [phone] * (ABNORMAL) CBC auto differential (01/03/2025 10:20 AM EDT) White Blood Count 10.2 4.8 - 10.8 X10*3/uL [facility] Red Blood Count 4.72 4.60 - 5.80 X10*6/uL [facility] Hemoglobin 14.2 14.0 - 18.0 g/dl [facility] Hematocrit 43.8 42.0 - 52.0 % [facility] Mean Corpuscular Volume 92.8 80.0 - 98.0 fL [facility] Mean Corpuscular Hemoglobin 30.1 27.0 - 33.0 pg [facility] Mean Corpuscular HGB Conc 32.4 31.0 - 36.0 g/dl [facility] Red Cell Distribution Width 16.7(H) 11.0 - 16.0 % [facility] Platelet Count 168 160 - 400 X10*3/uL [facility] Mean Platelet Volume 11.4 9.4 - 12.4 fL [facility] Neutrophils Percent Auto 69.7 45 - 73 % [facility] Imm Gran Pct Auto 0.4 0.0 - 0.4 % [facility] Lymphocytes Percent Auto 18.9(L) 20 - 40 % [facility] Monocytes Percent Auto 9.5 2 - 11 % [facility] Eosinophils Percent Auto 0.8 0 - 4 % [facility] Basophils Percent Auto 0.7 0 - 2 % [facility] NRBC Pct Auto 0.0 0.0 - 0.2 /100WBC [facility] Neutrophils Absolute Auto 7.1 2.0 - 8.3 x10*3/uL [facility] Imm Gran Abs Auto 0.04(H) 0.00 - 0.03 X10*3/uL [facility] Lymphocytes Absolute Auto 1.9 1.2 - 4.9 X10*3/uL [facility] Monocytes Absolute Auto 1.0 0.1 - 1.2 X10*3/uL [facility] Eosinophils Absolute Auto 0.1 0.0 - 0.4 X10*3/uL [facility] Basophils Absolute Auto 0.1 0.0 - 0.2 X10*3/uL [facility] NRBC Abs Auto 0.000 0.0 - 0.012 X10*3/uL [facility] 01/03/2025 10:2 0 AM EDT 01/03/2025 10:25 AM EDT Generic External Data Provider LAB BLOOD ORDERAB LES Final Result Performing Organization Address [facility] de Phone Number [facility] [address] [place] [phone] * (ABNORMAL) B Type Natriuretic Peptide (BNP) (01/03/2025 10:20 AM EDT) B Type Natriuretic Peptide 813(H) <100 pg/mL [facility] 01/03/2025 10:2 0 AM EDT 01/03/2025 12:48 PM EDT Generic External Data Provider LAB BLOOD ORDERAB LES Final Result Performing Organization Address [facility] de Phone Number [facility] [address] [place] [phone] * Lactic Acid (01/03/2025 10:20 AM EDT) Lactic Acid 1.6 0.5 - 2.0 mmol/L [facility] 01/03/2025 10:2 0 AM EDT 01/03/2025 10:25 AM EDT Generic External Data Provider LAB BLOOD ORDERAB LES Final Result Performing Organization Address [facility] de Phone Number [facility] [address] [place] [phone] * XR Chest 1 View (01/03/2025 9:58 AM EDT) Anatomical Region Laterality Modality Chest Radiographic Dasia ging 01/03/2025 9:58 AM EDT Narrative 01/03/2025 10:38 AM EDT ? [place] [facility] ?[address] ?[place] [address] ?XRay Report ? Signed ? Patient: Moisés,Sonny ?MR#: [id number] ?? [id number] ? : 1960 ?Acct:[id number] ? Age/Sex: 64 / M ?ADM Date: 01/03/25 ? Loc: HO.ED ? Attending Dr: ? Ordering Physician: Dee Guillermo MD ?? Date of Service: 01/03/25 ?? Procedure(s): XR chest 1V ?? Accession Number(s): [id number] ? cc: Dee Guillermo MD; Farrah Jackson [...] DD/ 0958 ? TD/TT: 01/03/25 1012 ? Sales Representative [facility]: ? Procedure Note Julio Fowler - 01/03/[address] [place] [address] XRay Report Signed Patient: Emily Curiel#: [id number] : 9Acct:[id number] Age/Sex: 64 / MADM Date: 01/03/25 Loc: HO.ED Attending Dr: Ordering Physician: Dee Guillermo MD Date of Service: 01/03/25 Procedure(s): XR chest 1V Accession Number(s): [id number] cc: Dee Guillermo MD; Farrah Jackson DO [...] Burton Ang MD 01/03/2025 10:35 AM EDT Dictated By: Burton Ang MD Signed By: <Electronically signed by Burton Ang MD in OV> 01/03/25 1035 DD/ 0958 TD/TT: 01/03/25 1012 [facility]: us [facility] External Provider IMG XR PROCEDURES Final Result * Magnesium (11/02/2024 2:34 PM EST) Magnesium 1.6 1.6 - 2.6 mg/dL [facility] 11/02/2024 2:34 PM EST 11/02/2024 2:34 PM EST us Generic External Data Provider LAB BLOOD ORDERAB LES Final Result Performing Organization Address [facility]/ZIP Co de Phone Number [facility] [address] [place] [phone] [phone] * (ABNORMAL) Lipid Panel, Standard (04/21/2024 10:01 AM EDT) Triglycerides 98 <150 mg/dL [facility] Comment:Desirable Triglyceri de: less than 150 mg/dLBorderline High Triglyceride 150-199 mg/dLHigh Triglyceride: 200-499 mg/dLVery High Triglyceride: greater than or equal to 5OO mg/dL Cholesterol 96 <200 mg/dL [facility] Comment:Desirable Cholestero l: less than 200 mg/dLBorderline High Cholesterol: 200-239 mg/dLHigh Cholesterol: greater than 239 mg/dL LDL Cholesterol Calculated 43 <100 mg/dL [facility] Comment:Desirable LDL: less than 100 mg/dLNear Optimal/Above Optimal LDL: 110- 129 mg/dLBorderline High LDL: 130-159 mg/dLHigh LDL: 160-189 mg/dLVery High LDL: greater than or equal to 190 mg/dL HDL Cholesterol 34(L) >40 mg/dL [facility] Comment:Desirable HDL: great er than 40 mg/dL Note: This HDL assay may give artificially low results in patients with liver disease. Blood Venous blood specimen / Unknown 04/21/2024 10:01 AM EDT 04/21/2024 11:11 AM EDT us Farrah Jackson DO LAB BLOOD ORDERABLES Final R esult Performing Organization Address City/[facility]/ZIP Co de Phone Number [facility] [address] [place] [phone] [phone] * (ABNORMAL) POCT HGB A1C (04/21/2024 9:10 AM EDT) Hemoglobin A1C 6.6(A) 4.0 - 6.0 % QC Media Lot # [id number] Lot# Expiration Date ,026 Blood 04/21/2024 9:10 AM EDT Farrah Jackson DO POINT OF CARE TEST ENTER/NILESH T ORDERABLES Final Result * Cologuard?? colon cancer screening (08/26/2023 12:36 PM EDT) Cologuard Result Negative Negative 09/02/20 1:54 AM [employer] (CLIA #:[id number]) Comment: NEGATIVE TEST RESULT. A negative Cologuard [...] screened with both Cologuard and colonoscopy. (Liang Orona. et al, N Engl J Med 2014;370(14):1286- 1297) The normal value (reference range) for this assay is negative. COLOGUARD RE-SCREENING RECOMMENDATION: Periodic colorectal cancer screening is an important part of preventive healthcare for asymptomatic individuals at average risk for colorectal cancer. ??Following a negative Cologuard result, the [employer] Society and U.S. Multi-Society Task Force screening guidelines recommend a Cologuard re-screening interval of 3 years. References: [employer] Guideline for Colorectal Cancer Screening: https://www.cancer.org/cancer/jbilp-prfjwb-jjcblr/xvdsebapk-ybptnjukh-ncafwtx/ac s-rec ommendations.html.; Matty YOUNG, Krys HALL, Shelton CoreaK, Colorectal Cancer Screening: Recommendations for Physicians and Patients from the U.S. Multi-Society Task Force on Colorectal Cancer Screening , Am J Gastroenterology 2017; 112:8517-1797. TEST DESCRIPTION: Composite algorithmic analysis of stool [...] screened with both Cologuard and colonoscopy. (Liang Orona. et al, N Engl J Med 2014;370(14):5274-3212.) Cologuard may produce a false negative or false positive result (no colorectal cancer or precancerous polyp present at colonoscopy follow up). A negative Cologuard test result does not guarantee the absence of CRC or advanced adenoma (pre-cancer). The current Cologuard screening interval is every 3 years. ([employer] Society and U.S. Multi-Society Task Force). Cologuard performance data in a 10,000 patient pivotal study using colonoscopy as the reference method can be accessed at the following location: www.[employer]/results. Additional description of the Cologuard test process, warnings and precautions can be found at www.[employer].com. Stool specimen (specimen) 08/26/2023 12:36 PM EDT 08/27/2023 6:19 PM EDT Farrah Jackson DO LAB MOLECULAR DIAGNOSTICS OR DERABLES Final Result [email or web address] (CLIA #:[id number]) [place] [address], * Hepatitis C Antibody with Reflex to HCV RNA,PCR w/Reflex to Genotype, [facility] (02/10/2023 12:11 PM EDT) Hepatitis C Antibody NON-REACT EYAD NON-REACT EYAD [employer] [facility] Index 0.08 <1.00 [facility] [place] [facility] Comment: HCV antibody was non-reactive. There is no laboratory evidence of HCV infection. In most cases, no further action is required. However, if recent HCV exposure is suspected, a test for HCV RNA (test code 76010) is suggested. For additional information, please refer to http://education.[employer]/faq/XWM746 (This link is being provided for informational/ educational purposes only.) 02/10/2023 12:1 1 PM EDT 02/10/2023 12:13 PM EDT Narrative [facility] - 02/11/2023 7:21 PM EDT FASTING:NO FASTING: NO us Farrah Jackson DO LAB BLOOD ORDERABLES Final R esult [facility] [address], [place] [address] [employer] [place] [facility] [address] [place] [phone] from Last 3 Months or Most Recently Relevant to Health Maintenance Insurance [address] [place], [place] [address] STANDARD [facility] - [facility] [address] [place] [id number] Care Teams Field Service Specialist Relationship Specialty Start Date End Date Farrah Jackson DO [address] [place] [phone] PCP - General Family Medicine 10/25/18
--- OUTSIDE RECORDS SUMMARY | 2025-01-08 08:40 | XMS_ITS | Encounter Summary ---
Author Organization [employer] Address [address] [facility] 7t [place] [address] Care Team Providers Care Climate Change Risk Assessor Name Role Phone Farrah Jackson DO Primary Care Provider + [phone] Reason for Visit * Reason Comments Med Refill Encounter Details Date Type Department Care Team ([facility] st Contact Info) Description 12/09/2024 Refill [facility] [address] [place], [place] [phone] Farrah Jackson DO [address] [place], [place] [phone] Primary hypertension Social History Tobacco Use Types [...] documented as of this encounter Care Teams Climate Change Risk Assessor Relationship Specialty Start Date End Date Farrah Jackson DO [address] [place] [phone] PCP - General Family Medicine 10/25/18 documented as of this encounter
--- OUTSIDE RECORDS SUMMARY | 2025-01-08 08:40 | XMS_ITS | Encounter Summary ---
Author Organization [employer] Address [address] [facility] 7t [place] [address] Care Team Providers Care Workers Compensation Attorney Name Role Phone Farrah Jackson DO Primary Care Provider + [phone] Reason for Visit * Reason Onset Date Comments Recall Letter 12/29/2024 Recall Letter se nt 12/29/24. Encounter Details Date Type Department Care Team ([facility] Contact Info) Description 12/29/2024 Telephone [facility] [address] [place], [place] [phone] Farrah Jackson DO [address] [place] [address] Recall Letter (Recall Letter sent 12/29/24.) Social [...] documented as of this encounter Care Teams Workers Compensation Attorney Relationship Specialty Start Date End Date Farrah Jackson DO [address] [place] [address] PCP - General Family Medicine 10/25/18 documented as of this encounter
--- OUTSIDE RECORDS SUMMARY | 2025-01-08 08:40 | XMS_ITS | Encounter Summary ---
Author Organization [employer] Address [address] [facility] 7t [place] [address] Care Team Providers Care Sterile Supervisor Name Role Phone KrissyFarrah knight Primary Care Provider + [phone] Reason for Visit * Reason Comments Med Refill Encounter Details Date Type Department Care Team ([facility] st Contact Info) Description 11/19/2023 Refill [facility] [address] [place], [place] [phone] Juana Wilson MD [address] [place], [place] [phone] Social History Tobacco Use Types Packs/Day Years [...] on filedocumented in this encounter Care Teams Sterile Supervisor Relationship Specialty Start Date End Date Farrah Jackson DO [address] [place] [address] PCP - General Family Medicine 10/25/18 documented as of this encounter
--- OUTSIDE RECORDS SUMMARY | 2025-01-08 08:40 | XMS_ITS | Encounter Summary ---
Author Organization [employer] Address [address] [facility] 7t [place] [address] Care Team Providers Care Professor Of Rhetoric Name Role Phone Farrah Jackson DO Primary Care Provider + [phone] Reason for Visit * Reason Onset Date Comments Nurse Triage 12/28/2023 Encounter Details Date Type Department Care Team ([facility] st Contact Info) Description 12/28/2023 Telephone [facility] [address] [place], [place] [phone] Farrah Jackson DO [address] [place], [place] [phone] Nurse Triage Social History Tobacco Use Types [...] for UTI. Pt is advised to come [facility] for provider to see Pt. Pt insurance is not active at this time and Pt is waiting for medicare to start. Advised to stop at front desk admin to speak about insurance before going to [facility] . Pt agreed with disposition and [...] accepted this outcome Please contact pt at [phone] documented in this encounter Plan of Treatment Not on file documented as of this encounter Visit Diagnoses Not on filedocumented in this encounter Care Teams Professor Of Rhetoric Relationship Specialty Start Date End Date Farrah Jackson DO [address] [place] [phone] PCP - General Family Medicine 10/25/18 documented as of this encounter
--- OUTSIDE RECORDS SUMMARY | 2025-01-08 08:40 | XMS_ITS | Encounter Summary ---
Author Organization [employer] Address [address] [facility] 7t [place] [address] Care Team Providers Care Crayon Sawyer Name Role Phone Farrah Jackson DO Primary Care Provider + [phone] Reason for Visit * Reason Comments Med Refill Encounter Details Date Type Department Care Team ([facility] st Contact Info) Description 07/10/2024 Refill [facility] [address] [place], [place] [phone] Farrah Jackson DO [address] [place], [place] [phone] Social History Tobacco Use Types Packs/Day Years [...] documented as of this encounter Care Teams Crayon Sawyer Relationship Specialty Start Date End Date Farrah Jackson DO [address] [place] [address] PCP - General Family Medicine 10/25/18 documented as of this encounter
[2025-01-08 08:44] VITALS: BP 110/70; PULSE 81; BMI 25.3
--- NOTE | 2025-01-08 08:44 | MHC.OFFVIS ---
Vital Signs 01/08/25 08:44 Height 5 ft 7 in Weight 161 lb 13.109 oz BMI 25.3 BP 110/70 Blood Pressure Location Lt brachial Position Sitting Pulse 81 Pulse Source Pulse Oximeter Intake Visit Reasons: Congestive heart failure [facility] d/c f/up General Production Manager Required: No Accompanied by: Self / Same As Patient Allergies oxycodone Adverse Reaction (Intermediate, Verified 01/03/25 09:05) vomiting, delusions Medication List - Last Reconciled 01/08/25 by Tomer Carolina MD albuterol sulfate 90 mcg/actuation 2 puffs inhalation QID PRN 1 month atorvastatin (Lipitor) 80 mg PO DAILY budesonide-formoterol 160-4.5 mcg/actuation (Symbicort) 2 puffs inhalation BID carvedilol 18.75 mg PO BID dapagliflozin propanediol (Farxiga) 10 mg PO DAILY furosemide 20 mg PO DAILY hydrocodone-acetaminophen 5-325 mg 1 tab PO Q4-6H PRN meloxicam 7.5 mg PO DAILY metformin 1,000 mg PO BID multivitamin 1 tab PO DAILY sacubitril-valsartan 49-51 mg (Entresto) 1 tab PO BID 90 days sertraline 25 mg PO DAILY spironolactone 25 mg PO DAILY HPI Comments Details: Sonny returns for follow-up regarding nonischemic cardiomyopathy. Has a history of frequent PVCs. Multiple risk factors including diabetes, hypertension, dyslipidemia, but cardiac catheterization did not show any significant coronary disease. Recently, came to the emergency room with complaints of cough and respiratory symptoms. There was a concern for possible congestive heart failure. It seems he got diuretics in the ER. He states he otherwise feels fine now. Shortness of breath is at baseline. No other new complaints. [facility] Medical History Pacemaker Gout [id number] deficiency Encounter for discussion regarding implantable cardioverter-defibrillator Cardiomyopathy COPD (chronic obstructive pulmonary disease) Essential hypertension PVC (premature ventricular contraction) MARVA (obstructive sleep apnea) Carcinoid tumor High cholesterol Prostate enlargement Diabetes Surgical History History of surgical procedure (~2022) History of prostate surgery Hx of colonoscopy History of bronchoscopy History of lobectomy of lung Family History Son No problems noted. Father No problems noted. 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 Review of Systems Const Denies chills, Denies fatigue, Denies fever(s), Denies weight gain and Denies weight loss ENT Denies dizziness Card Denies chest pain, Denies leg edema, Denies lightheadedness, Denies palpitations, Denies dyspnea on exertion, Denies orthopnea and Denies other Resp Denies cough and Denies dyspnea on exertion GI Denies hematochezia and Denies change in stool character Musc Denies abnormal gait, Denies muscle weakness, Denies numbness, Denies radiating pain into limb and Denies tingling Neuro Denies abnormal gait, Denies dizziness, Denies numbness and Denies tingling Endo Denies fatigue and Denies palpitations Physical Exam Vital Signs: Last Vital Signs Pulse 81 01/08/25 08:44 BP 110/70 01/08/25 08:44 BMI result Body Mass Index 25.3 Const General: comfortable and no acute distress Orientation/consciousness: patient oriented x3 HEENT Other: Unremarkable Head: Yes normal to inspection Neck Neck: Yes normal visual inspection Chest Chest palpation & inspection: normal inspection of the chest Resp Auscultation: clear to auscultation bilaterally Cardio Palpation: normal PMI Heart sounds: S1 normal heart sound present, S2 normal heart sound present, no gallops, no murmurs and no rubs GI Palpation (GI): Soft to palpation Back/Spine/Pelvis Other: unremarkable Skin General skin exam: no rashes or lesions noted Neuro General: patient oriented x3 Extrem General: Yes normal to inspection Psych Mental Status: mental status grossly normal Assessment & Plan Assessment & Plan (1) NICM (nonischemic cardiomyopathy): Code(s): I42.8 - Other cardiomyopathies Category: Medical Plan: In the echocardiogram, LVEF 20-55%. Similar to prior. Cardiac catheterization with mild luminal irregularities in the LAD but otherwise unremarkable coronaries. LVEDP was also normal. Could be either from hypertension or from alcoholic cardiomyopathy. However, no alcohol excess in the last few years. Continue Coreg/Entresto/spironolactone/Farxiga/diuretics. Most recent creatinine is 0.9 with a potassium of 4.1. (2) PVC (premature ventricular contraction): Code(s): I49.3 - Ventricular premature depolarization Category: Medical Plan: In the last Holter, PVC burden of 5.3%. Short runs noted. Nothing sustained. Already has ICD in place. (3) Essential hypertension: Code(s): I10 - Essential (primary) hypertension Category: Medical Plan: Stable. No changes. (4) Diabetes: Code(s): E11.9 - Type 2 diabetes mellitus without complications Category: Medical Plan: On metformin/Farxiga. Last hemoglobin A1c is 6.5%. Coding Level of Care Code Est Pt Level 4 (77318) Complex EM visit Add On G2211 Diagnoses NICM (nonischemic cardiomyopathy) I42.8 PVC (premature ventricular contraction) I49.3 Essential hypertension I10 Diabetes E11.9
== END 2025-01-08 09:01 | disposition home or self-care (01) ==
LOC: HO.HCS 08:25
PROVIDERS: PCP Family Medicine; Visit Provider Internal Medicine
DX: I42.8 Other cardiomyopathies (principal); I49.3 Ventricular premature depolarization; I10 Essential (primary) hypertension; E11.9 Type 2 diabetes mellitus without complications
CPT/HCPCS: 99214; G2211

== ENCOUNTER → 2025-01-08 08:24 | Outpatient (BNVA) | payer OTHER, SELFPAY | PROVIDERS: PCP Family Medicine; Visit Provider Internal Medicine | DX: I11.0 Hypertensive heart disease with heart failure (principal); I50.9 Heart failure, unspecified; I42.8 Other cardiomyopathies; E78.5 Hyperlipidemia, unspecified; I49.3 Ventricular premature depolarization; E11.9 Type 2 diabetes mellitus without complications | CPT/HCPCS: 99212 ==

== ENCOUNTER → 2025-01-21 23:59 | Outpatient (BNV) | payer OTHER, SELFPAY ==
--- NOTE | 2025-01-28 13:21 | MHC.OFFVIS ---
Intake Visit Reasons: Remote device check-[employer] Allergies oxycodone Adverse Reaction (Intermediate, Verified 01/03/25 09:05) vomiting, delusions PFSH Medical History Pacemaker Gout Rievu-2-sqjpqdevjiq deficiency Encounter for discussion regarding implantable cardioverter-defibrillator Cardiomyopathy COPD (chronic obstructive pulmonary disease) Essential hypertension PVC (premature ventricular contraction) MARVA (obstructive sleep apnea) Carcinoid tumor High cholesterol Prostate enlargement Diabetes Surgical History History of surgical procedure (~2022) History of prostate surgery Hx of colonoscopy History of bronchoscopy History of lobectomy of lung Family History Son No problems noted. Father No problems noted. 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 [id number] Cardiac Interrogation, implant defibrillator w/interim Procedure code (CPT) selection complete Assessment & Plan Assessment & Plan (1) S/P ICD (internal cardiac defibrillator) procedure: Code(s): Z95.810 - Presence of automatic (implantable) cardiac defibrillator Category: Surgical (2) PVC (premature ventricular contraction): Code(s): I49.3 - Ventricular premature depolarization Category: Medical (3) NICM (nonischemic cardiomyopathy): Code(s): I42.8 - Other cardiomyopathies Category: Medical Plan x Coding Level of Care Code Procedure Only Diagnoses S/P ICD (internal cardiac defibrillator) procedure Z95.810 PVC (premature ventricular contraction) I49.3 NICM (nonischemic cardiomyopathy) I42.8 CPT Codes Cardiac Device Check - Cardiac Device 13: [id number] Cardiac Interrogation, implant defibrillator w/interim ([id number])
== END ==
PROVIDERS: PCP Family Medicine; Visit Provider Internal Medicine
DX: I42.8 Other cardiomyopathies (principal); I49.3 Ventricular premature depolarization; Z95.810 Presence of automatic (implantable) cardiac defibrillator
CPT/HCPCS: 93295

== ENCOUNTER → 2025-01-21 23:59 | Outpatient (BNV) | payer OTHER, SELFPAY ==
--- NOTE | 2025-01-28 13:20 | MHC.OFFVIS ---
Intake Visit Reasons: Remote HF monitoring- [employer] Allergies oxycodone Adverse Reaction (Intermediate, Verified 01/03/25 09:05) vomiting, delusions PFSH Medical History Pacemaker Gout Tzzuy-8-txboneijrcg deficiency Encounter for discussion regarding implantable cardioverter-defibrillator Cardiomyopathy COPD (chronic obstructive pulmonary disease) Essential hypertension PVC (premature ventricular contraction) MARVA (obstructive sleep apnea) Carcinoid tumor High cholesterol Prostate enlargement Diabetes Surgical History History of surgical procedure (~2022) History of prostate surgery Hx of colonoscopy History of bronchoscopy History of lobectomy of lung Family History Son No problems noted. Father No problems noted. 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 [id number] Cardiac Device Interrogation, cardio physiologic monitor Procedure code (CPT) selection complete Assessment & Plan Assessment & Plan (1) S/P ICD (internal cardiac defibrillator) procedure: Code(s): Z95.810 - Presence of automatic (implantable) cardiac defibrillator Category: Surgical (2) NICM (nonischemic cardiomyopathy): Code(s): I42.8 - Other cardiomyopathies Category: Medical Plan x Coding Level of Care Code Procedure Only Diagnoses S/P ICD (internal cardiac defibrillator) procedure Z95.810 NICM (nonischemic cardiomyopathy) I42.8 CPT Codes Cardiac Device Check - Cardiac Device 15: [id number] Cardiac Device Interrogation, cardio physiologic monitor ([id number])
== END ==
PROVIDERS: PCP Family Medicine; Visit Provider Internal Medicine
DX: I42.8 Other cardiomyopathies (principal); Z95.810 Presence of automatic (implantable) cardiac defibrillator
CPT/HCPCS: 93297

== ENCOUNTER 2025-01-22 13:39 | Outpatient (REF) | payer OTHER, SELFPAY ==
--- NOTE | ~2025-01-22 | XR_ITS ---
EXAMINATION: XR CHEST 2 VIEWS HISTORY: cough COMPARISON: Comparison is made with the prior examination dated 01/03/2025. FINDINGS: PA and lateral views of the chest are submitted. A left subclavian AICD is unchanged in position. There are postoperative changes on the left without significant change. No new focal airspace opacity is seen. There is probable left lateral pleural thickening. There is no pleural effusion, pneumothorax, or pulmonary vascular congestion. The heart remains enlarged. There is degenerative disc disease of the spine. XR/XR chest 2V IMPRESSION: Cardiomegaly. No acute cardiopulmonary abnormality. Electronically signed by: Nehemiah Bates MD 01/23/2025 08:08 AM EDT
--- OUTSIDE RECORDS SUMMARY | 2025-01-22 15:26 | XMS_ITS | Clinical Summary ---
Author Organization [facility] Address [address] [place] [phone] Phone Care Team Providers Care Lead Performance Support Analyst Name Role Phone Unavailable Primary Care Provider [...]
--- OUTSIDE RECORDS SUMMARY | 2025-01-22 15:26 | XMS_ITS | Encounter Summary ---
Author Organization [employer] Address [address] [facility] 7t [place] [address] Care Team Providers Care Booker Name Role Phone Farrah Jackson DO Primary Care Provider + [phone] Reason for Visit * Reason Comments Med Refill Encounter Details Date Type Department Care Team ([facility] Contact Info) Description 11/14/2023 Refill [facility] [address] [place], [place] [phone] Farrah Jackson DO [address] [place] [address] Social History Tobacco Use Types Packs/Day Years [...] on filedocumented in this encounter Care Teams Booker Relationship Specialty Start Date End Date Farrah Jackson DO [address] [place] [id number] PCP - General Family Medicine 10/25/18 documented as of this encounter
--- OUTSIDE RECORDS SUMMARY | 2025-01-22 15:26 | XMS_ITS | Encounter Summary ---
Author Organization [employer] Address [address] [facility] [address] [place] [address] Care Team Providers Care Hair Or Beauty Salon Manager Name Role Phone RenettaFarrah Primary Care Provider + [phone] Reason for Visit * Reason Comments Med Refill Encounter Details Date Type Department Care Team ([facility] Contact Info) Description 01/11/2025 Refill [facility] MED[facility]INE [address] [place], [place] [phone] Alexsandra Luevano MD [address] [place], [place] [phone] Primary hypertension Social History Tobacco Use Types [...] documented as of this encounter Care Teams Hair Or Beauty Salon Manager Relationship Specialty Start Date End Date Farrah Jackson DO [address] [place] [address] PCP - General Family Medicine 10/25/18 documented as of this encounter
--- OUTSIDE RECORDS SUMMARY | 2025-01-22 15:26 | XMS_ITS | Encounter Summary ---
Author Organization [employer] Address [address] [facility] [address]t [place] [address] Care Team Providers Care Encoding Clerk Name Role Phone Farrah Jackson DO Primary Care Provider + [phone] Reason for Visit * Reason Onset Date Comments Nurse Triage 12/28/2023 Encounter Details Date Type Department Care Team ([facility] st Contact Info) Description 12/28/2023 Telephone [facility] MEDICINE [address] [place], [place] [phone] Farrah Jackson DO [address] [place], [place] [phone] Nurse Triage Social History Tobacco Use Types [...] for UTI. Pt is advised to come [facility] for provider to see Pt. Pt insurance is not active at this time and Pt is waiting for medicare to start. Advised to stop at front office manager to speak about insurance before going to [facility] . Pt agreed with disposition and [...] accepted this outcome Please contact pt at [phone] documented in this encounter Plan of Treatment Not on file documented as of this encounter Visit Diagnoses Not on filedocumented in this encounter Care Teams Encoding Clerk Relationship Specialty Start Date End Date Farrah Jackson DO [address] [place] [address] PCP - General Family Medicine 10/25/18 documented as of this encounter
--- OUTSIDE RECORDS SUMMARY | 2025-01-22 15:26 | XMS_ITS | Encounter Summary ---
Author Organization [facility] Address [address] [facility] 7t [place] [address] Care Team Providers Care Information Support Project Manager Name Role Phone Farrah Jackson DO Primary Care Provider + [phone] Reason for Visit * Reason Onset Date Comments pain medication to pharmacy 05/22/2024 Encounter Details Date Type Department Care Team ([facility] st Contact Info) Description 05/22/2024 Telephone [facility] [address] [place] [address] Farhad Knott, DMD [address] [place] [address] pain medication to pharmacy Social History Tobacco [...] documented as of this encounter Care Teams Information Support Project Manager Relationship Specialty Start Date End Date Farrah Jackson DO [address] [place] [address] PCP - General Family Medicine 10/25/18 documented as of this encounter
--- OUTSIDE RECORDS SUMMARY | 2025-01-22 15:26 | XMS_ITS | Encounter Summary ---
Author Organization [employer] Address [address] [facility] 7t [place] [address] Care Team Providers Care Flower Cutter Name Role Phone Farrah Jackson DO Primary Care Provider + [phone] Encounter Details Date Type Department Care Team (Late st Contact Info) Description 01/15/2023 Orders Only [facility] [address] [place], [place] [phone] Farrah Baird LPN Social History Tobacco Use [...] on filedocumented in this encounter Care Teams Flower Cutter Relationship Specialty Start Date End Date Farrah Jackson DO [address] [place] [address] PCP - General Family Medicine 10/25/18 documented as of this encounter
--- OUTSIDE RECORDS SUMMARY | 2025-01-22 15:26 | XMS_ITS | Encounter Summary ---
Author Organization [employer] Address [address] [facility] [address] [place] [address] Care Team Providers Care Motorcycle Tester Name Role Phone RenettaFarrah Primary Care Provider + [phone] Reason for Visit * Reason Comments Asthma Has not used his inh akhil x 1 week they do not work Sat r/a 98-99% Encounter Details Date Type Department Care Team ([facility] Contact Info) Description 01/22/2025 11:00 AM EDT Office Visit [facility] [address] [place] [address] Edgar Lorenz MD [address] [place] [address] Acute cough (Primary Dx) Social History Tobacco Use Types Packs/Day Years [...] AM EDT documented as of this encounter Last Filed Vital Signs Vital Sign Reading Time Taken Comments Blood Pressure 142/78 01/22/2025 11:20 AM EDT Pulse 84 01/22/2025 11:20 AM EDT Temperature 36.7 ??C (98 ??F) 01/22/2025 11: 20 AM EDT Respiratory Rate 18 01/22/2025 11:2 0 AM EDT Oxygen Saturation 99% 01/22/2025 11: 20 AM EDT Inhaled Oxygen Concentration - - Weight 72.9 kg (160 lb 12.8 oz) 025 11:20 AM EDT Height - - Body Mass Index 25.18 06/07/2024 11:11 AM EDT documented in this encounter Progress Notes * Edgar Lorenz MD - 01/22/2025 11:00 AM EDT Subjective Patient ID: Sonny Curiel is a 64 y.o. male. HPI 1 month ago Sonny had onset of cough productive of green and yellow sputum, occasional wheezing with SOB. Using albuterol HFA 2x/day with some relief. Denies fever, chills, chest pain. No significant recent weight change. Was followed by [facility] Pulmonology for COPD, last visit was 3 years ago. States he went to their office this morning, there were no appointments and he was referred to [facility]. They gave him an appointment for March. On January 03 Sonny was seen at [facility] ED for cough. Chest x-ray was read as IMPRESSION: 1. AICD device, stable. 2. Probable mild interstitial pulmonary edema. Cardiomegaly. 3. Stable postoperative volume loss and scarring left lung History of cardiomyopathy with EF of 25%, has AICD. Jigsawyer was consulted and he was given a dose of Lasix in the ED and his dose of spironolactone was briefly increased at home. Advised to have a low-salt diet. 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 Lives with . Retired. Former smoker. Patient Active Problem List Diagnosis BPH without urinary obstruction Chronic gastroesophageal reflux disease Hyperlipidemia Essential hypertension History of malignant carcinoid tumor Microscopic hematuria Status post partial lobectomy of lung Fatty liver Type 2 diabetes mellitus (CMS/HCC) Nonischemic cardiomyopathy (CMS/HCC) AICD (automatic cardioverter/defibrillator) present COPD (chronic obstructive pulmonary disease) (CMS/HCC) MARVA (obstructive sleep apnea) Severe dental caries Acute urinary retention Adverse drug reaction Bilateral groin pain Hypomagnesemia Myalgia Nausea & vomiting The following portions of the chart were reviewed this encounter and updated as appropriate: Tobacco Allergies Meds Problems Med Hx Surg Hx Fam Hx Review of Systems Constitutional: Negative for fever. Respiratory: Positive for cough, shortness of breath and wheezing. Cardiovascular: Negative for chest pain. Gastrointestinal: Negative for abdominal pain. Skin: Negative for rash. Neurological: Negative for headaches. Objective Physical Exam Constitutional: Appearance: Normal appearance. HENT: Right Ear: Tympanic membrane, ear canal and external ear normal. Left Ear: Tympanic membrane, ear canal and external ear normal. Nose: Nose normal. Mouth/Throat: Mouth: Mucous membranes are moist. Pharynx: Oropharynx is clear. Eyes: Conjunctiva/sclera: Conjunctivae normal. Pupils: Pupils are equal, round, and reactive to light. Cardiovascular: Rate and Rhythm: Normal rate and regular rhythm. Heart sounds: No murmur heard. Pulmonary: Effort: Pulmonary effort is normal. Breath sounds: Normal breath sounds. No rales. Comments: No audible rales Musculoskeletal: General: Normal range of motion. Cervical back: No tenderness. Skin: Findings: No rash. Neurological: Mental Status: He is alert. Gait: Gait is intact. Psychiatric: Mood and Affect: Mood normal. Behavior: Behavior normal. Procedures Assessment/Plan Diagnoses and all orders for this visit: Acute cough Negative rapid Covid and Influenza tests. Presumptive COPD exacerbation. Chest x-ray ordered to evaluate recurrent CHF as etiology. Will call patient with report. Prescribed albuterol HFA with spacer, prednisone (monitor home blood glucose levels), Augmentin. Return to clinic if not improving. Keep scheduled [facility] pulmonology appointment. - XR Chest 2 Views; Future Other orders - amoxicillin-clavulanate (Augmentin) 875-125 MG tablet; Take 1 tablet by mouth 2 times daily. - predniSONE (Deltasone) 20 MG tablet; Take 2 tablets (40 mg) by mouth Once per day for 5 days. - Spacer/Aero-Holding Chambers (OptiChamber Deedee) misc; 1 each every 4 (four) hours if needed (asthma). - albuterol (Ventolin HFA) 108 (90 Base) MCG/ACT inhaler; Inhale 2 puffs every 4 (four) hours if needed for wheezing. documented in this encounter Plan of Treatment Scheduled Orders Name Type Priority Associated Diagnoses Orde r Schedule XR Chest 2 Views Imaging Routine Acute cough Expected: 01/22/2025, Expires: 01/22/2026 documented as of this encounter Visit Diagnoses Diagnosis Acute cough- Primary documented in this encounter Additional Health Concerns Assessment Noted Time PHQ-9 Depression Total Score: 2 04/21/20 24 8:50 AM EDT documented as of this encounter Care Teams Motorcycle Tester Relationship Specialty Start Date End Date Farrah Jackson DO [address] [place] [phone] PCP - General Family Medicine 10/25/18 documented as of this encounter
--- OUTSIDE RECORDS SUMMARY | 2025-01-22 15:26 | XMS_ITS | Encounter Summary ---
Author Organization [employer] Address [address] [facility] 7t [place] [address] Care Team Providers Care Foreign Agent Name Role Phone Farrah Jackson DO Primary Care Provider + [phone] Reason for Visit * Reason Comments Med Refill Encounter Details Date Type Department Care Team ([facility] Contact Info) Description 07/10/[address] [facility] MEDICINE [address] [place], [place] [phone] Farrah Jackson DO [address] [place] [address] Social History Tobacco Use Types Packs/Day Years [...] documented as of this encounter Care Teams Foreign Agent Relationship Specialty Start Date End Date Farrah Jackson DO [address] [place] [address] PCP - General Family Medicine 10/25/18 documented as of this encounter
--- OUTSIDE RECORDS SUMMARY | 2025-01-22 15:26 | XMS_ITS | Encounter Summary ---
Author Organization [facility] Address [address] [place] [address] Care Team Providers Care Police Magistrate Name Role Phone Unavailable Primary Care Provider Unavailabl e Encounter Details Date Type Department Care Team (Late st Contact Info) Description 09/11/2024 Lab Requisition [facility] - Main Lab [address] [facility] [place] [address] Krishna Jose MD [address] [facility] [address] [place] [phone] Elevated prostate specific antigen (PSA) Social History [...] Acute inflammation present. 09/20/2024 4:27 PM EST [facility] Gross Description A. Urine, Voided, : [id number] Recd 1 TP CYTO 09/20/2024 4:27 PM EST [facility] Disclaimer Unless otherwise specified, all tissue is 10% NB formalin fixed and paraffin embedded. 09/20/2024 4:27 PM EST [facility] Tissue Urine specimen from urethra / Unknown 09/06/2024 09/11/2024 1:13 PM EST us Krishna Jose MD LAB PATHOLOGY ORDERABLES Final Result [facility] [address] [place] [address], documented in this encounter Visit Diagnoses Diagnosis Elevated prostate specific antigen (PSA) documented in this encounter
--- OUTSIDE RECORDS SUMMARY | 2025-01-22 15:26 | XMS_ITS | Clinical Summary ---
Author Organization [employer] Address [address] [place] [address] Care Team Providers Care Coater Operator Insulation Board Name Role Phone RenettaFarrah Primary Care Provider [phone] Allergies Active Allergy Reactions Criticality Noted Date [...] 3 11/10/19 25 Active FREESTYLE LITE test stripIndication s:Type 2 diabetes mellitus with microalbuminuri a, without long-term current use of insulin ([facility]) USE TWICE DAILY DIRECTED 100 strip 8 11/29/19 25 Active carvedilol (Coreg) 12.5 MG tabletIndicatio ns:Primary hypertension TAKE 1 AND 1/2 TABLETS BY MOUTH TWICE DAILY IN THE MORNING AND IN THE EVENING WITH FOOD 90 tablet 01/12/20 25 Active amoxicillin-cla vulanate (Augmentin) 875-125 MG tablet Take 1 tablet by mouth 2 times daily. 14 tablet 01/23/20 25 Active predniSONE (Deltasone) 20 MG tablet Take 2 tablets (40 mg) by mouth Once per day for 5 days. 10 tablet 01/23/20 25 025 Active Spacer/Aero-Hol ding Chambers (OptiChamber Deedee) misc 1 each every 4 (four) hours if needed (asthma). 1 each 01/23/20 25 Active albuterol (Ventolin HFA) 108 (90 Base) MCG/ACT inhaler Inhale 2 puffs every 4 (four) hours if needed for wheezing. 54 g 1 01/23/20 25 026 Active carvedilol (Coreg) 12.5 MG tabletIndicatio ns:Primary hypertension TAKE 1 AND 1/2 TABLETS BY MOUTH TWICE DAILY IN THE MORNING AND IN THE EVENING WITH FOOD 90 tablet 12/12/19 25 025 Discontinued(Re order (will not trigger notification to Pharmacy)) Active Problems Problem Noted Date Diagnosed Date [...] Encounters Date Type Department Care Team Description 01/22/2025 11:00 AM EDT Office Visit [facility] [address] [place] [phone] Edgar Lorenz MD Acute cough (Primary Dx) 01/22/2025 Telephone [facility] [address] [place] [address] Nancy Sosa RN WIC triage 01/11/2025 Refill [facility] [address] [place] [phone] Farrah Jackson DO Primary hypertension 01/11/2025 Refill [facility] [address] [place] [address] Alexsandra Luevano MD Primary hypertension 01/03/2025 Orders Only GENERIC EXTERNAL DATA DEPARTMENT Provider, Generic External Data 12/29/2024 Telephone [facility] [address] [facility] [place] [address] Farrah Jackson DO Recall Letter (Recall Letter sent 12/29/24.) 12/09/2024 Refill [facility] [address] [place] [address] Farrah Jackson DO Primary hypertension 11/25/2024 Refill [facility] [place] [address] Farrah Jackson DO Type 2 diabetes mellitus with microalbuminuria, without long-term current use of insulin ([facility]) 11/09/2024 Telephone [facility] [place] [address] Velia Mckee, GEOFF Results 11/09/2024 Refill [facility] [place] [address] Farrah Jakcson DO 11/05/2024 Refill [facility] [place] [address] Farrah Jackson DO 11/02/2024 Orders Only GENERIC EXTERNAL DATA DEPARTMENT Provider, Generic External Data 10/24/2024 Patient Outreach [facility] [place] [address] Farrah Jackson DO Pre-visit Planning (SDIL screening completed on 04/21/2024) from Last 3 Months Immunizations Name Administration [...] 12.8 oz) 025 11:20 AM EDT Height 170.2 cm (5' 7 ) 06/07/2024 11:1 1 AM EDT Body Mass Index 25.18 06/07/2024 11:11 AM EDT Plan of Treatment [...] 60-74 years 1-dose series) 2018 COVID-19 Vaccine () 06/25/2024 04/21/2024, 08/05/2023, 09/29/2022, Additional history exists Influenza Vaccine (#1) 2024 , 07/10/2022, 10/14/2021, Additional history exists Diabetes: Hemoglobin A1C 10/21/2024 024, 04/21/2024, 01/11/2024, Additional history exists Depression Screening 04/21/2025 04/21/2024, 04/21/20 24 Lipid Panel 04/21/2025 04/21/2024, 04/06/2023, 07/10/2022, Additional history exists SDOH Screening 04/21/2025 04/21/2024 Tobacco Screening 01/22/2026 01/22/2025 Colorectal Cancer Screening 08/26/2026 FIT DNA/Cologuard 08/26/2026 [...] Recently Relevant to Health Maintenance Results * Blood Culture (Second) (01/03/2025 10:26 AM EDT) Blood Venous blood specimen / Unknown 01/03/2025 10:26 AM EDT 01/03/2025 10:29 AM EDT Comment:Blood Narrative [facility] - 01/08/2025 12:29 PM EDT Blood Culture (Second) No growth after 5 days. Specimen Source: Blood Generic External Data Provider LAB MICROBIOLOGY - GENERAL ORDERABLES Final Result Performing Organization Address [facility] Co de Phone Number [facility] [address] [place] [phone] * High Sensitivity Troponin I (01/03/2025 10:26 AM EDT) [facility] TROPONIN I HIGH SENSITIVITY 15.1 <3.5 - 35.0 ng/L [facility] Comment:The [place]wright high sens itivity Troponin-I results should beused in conjunction with other diagnostic information suchas ECG, clinical observations and information, and patientsymptoms to aid in the diagnosis of NH. 01/03/2025 10:2 6 AM EDT 01/03/2025 10:29 AM EDT Generic External Data Provider LAB BLOOD ORDERAB LES Final Result Performing Organization Address [facility] Co de Phone Number [facility] [address] [place] [phone] * (ABNORMAL) Hepatic Function Panel (01/03/2025 10:26 AM EDT) [facility] Bilirubin, Total 1.2(H) 0.0 - 1.0 mg/dL [facility] Bilirubin, Direct 0.4 0.0 - 0.5 mg/dL [facility] Aspartate Amino Transferase 24 5 - 37 U/L [facility] Alanine Aminotransferase 19 0 - 40 U/L [facility] Total Protein 7.1 6.5 - 8.0 g/dL [facility] Albumin Level 3.9 3.5 - 5.0 g/dL [facility] Alkaline Phosphatase 66 39 - 117 U/L [facility] 01/03/2025 10:2 6 AM EDT 01/03/2025 10:29 AM EDT us Generic External Data Provider LAB BLOOD ORDERAB LES Final Result [facility] [address] [place] [phone] [phone] * (ABNORMAL) Basic Metabolic Panel (01/03/2025 10:26 AM EDT) Only the most recent of2 resultswithin the time period is included. Sodium 143 135 - 145 mmol/L [facility] Potassium 4.1 3.3 - 5.1 mmol/L [facility] Chloride 111(H) 96 - 108 mmol/L [facility] Carbon Dioxide 25 22 - 29 mmol/L [facility] Anion Gap 11(L) 12 - 20 [facility] Urea Nitrogen (BUN) 16 9 - 16 mg/dL [facility] Creatinine, Serum 0.90 0.5 - 1.4 mg/dL [facility] Creatinine Clr Calc Pharmacy 75.4 [facility] Comment:eGFR (calculated fro m the MDRD study equation) and eCrCl(calculated from the Cockcroft-Gault equation) are based ondifferent parameters and may not yield comparable results.If eCrCl result is absurd, please check patient'sheight/weight. Estimated Glomerular Filt Rate >60 [facility] Comment:Chronic Kidney Disea se: Estimated GFR < 60 mL/min/1.11n4Izsqff Kidney Disease: Estimated GFR < 15 mL/min/1.73m2 Glucose 121(H) 60 - 115 mg/dL [facility] Calcium 9.1 8.4 - 10.2 mg/dL [facility] 01/03/2025 10:2 6 AM EDT 01/03/2025 10:29 AM EDT Generic External Data Provider LAB BLOOD ORDERAB LES Final Result Performing Organization Address [facility]/ZIP Co de Phone Number [facility] [address] [place] [phone] * Blood Culture (First) (01/03/2025 10:20 AM EDT) Blood Venous blood specimen / Unknown 01/03/2025 10:20 AM EDT 01/03/2025 10:25 AM EDT Comment:Blood Narrative [facility] - 01/08/2025 12:25 PM EDT Blood Culture (First) No growth after 5 days. Specimen Source: Blood Generic External Data Provider LAB MICROBIOLOGY - GENERAL ORDERABLES Final Result Performing Organization Address [facility]/ZIP Co de Phone Number [facility] [address] [place] [phone] * SARS-CoV-2 RNA, Influenza A/B, and RSV RNA, Ql NAAT (01/03/2025 10:20 AM EDT) Influenza A PCR NEGATIVE Negative [facility] Influenza B PCR NEGATIVE Negative [facility] Resp Syncy Virus RNA Qual PCR NEGATIVE Negative [facility] SARS COV2 PCR NEGATIVE Negative [facility] Comment:All test results mus t be [...] use by authorized laboratories.Testing performed on the [employer] GeneXpert utilizingreal-time RT-PCR.All SARS CoV2 and positive influenza A/B results arereported to [facility]. 01/03/2025 10:2 0 AM EDT 01/03/2025 10:25 AM EDT us Generic External Data Provider LAB MICROBIOLOGY - GENERAL ORDERABLES Final Result [facility] [address] [place] [phone] * (ABNORMAL) CBC auto differential (01/03/2025 10:20 AM EDT) White Blood Count 10.2 4.8 - 10.8 X10*3/uL [facility] Red Blood Count 4.72 4.60 - 5.80 X10*6/uL [facility] Hemoglobin 14.2 14.0 - 18.0 g/dl [facility] Hematocrit 43.8 42.0 - 52.0 % [facility] Mean Corpuscular Volume 92.8 80.0 - 98.0 fL [facility] Mean Corpuscular Hemoglobin 30.1 27.0 - 33.0 pg [facility] Mean Corpuscular HGB Conc 32.4 31.0 - 36.0 g/dl [facility] Red Cell Distribution Width 16.7(H) 11.0 - 16.0 % [facility] Platelet Count 168 160 - 400 X10*3/uL [facility] Mean Platelet Volume 11.4 9.4 - 12.4 fL [facility] Neutrophils Percent Auto 69.7 45 - 73 % [facility] Imm Gran Pct Auto 0.4 0.0 - 0.4 % [facility] Lymphocytes Percent Auto 18.9(L) 20 - 40 % [facility] Monocytes Percent Auto 9.5 2 - 11 % [facility] Eosinophils Percent Auto 0.8 0 - 4 % [facility] Basophils Percent Auto 0.7 0 - 2 % [facility] NRBC Pct Auto 0.0 0.0 - 0.2 /100WBC [facility] Neutrophils Absolute Auto 7.1 2.0 - 8.3 x10*3/uL [facility] Imm Gran Abs Auto 0.04(H) 0.00 - 0.03 X10*3/uL [facility] Lymphocytes Absolute Auto 1.9 1.2 - 4.9 X10*3/uL [facility] Monocytes Absolute Auto 1.0 0.1 - 1.2 X10*3/uL [facility] Eosinophils Absolute Auto 0.1 0.0 - 0.4 X10*3/uL [facility] Basophils Absolute Auto 0.1 0.0 - 0.2 X10*3/uL [facility] NRBC Abs Auto 0.000 0.0 - 0.012 X10*3/uL [facility] 01/03/2025 10:2 0 AM EDT 01/03/2025 10:25 AM EDT Generic External Data Provider LAB BLOOD ORDERAB LES Final Result Performing Organization Address City/[facility]/ZIP Co de Phone Number [facility] [address] [place] [phone] * (ABNORMAL) B Type Natriuretic Peptide (BNP) (01/03/2025 10:20 AM EDT) Pathologist [facility] B Type Natriuretic Peptide 813(H) <100 pg/mL [facility] 01/03/2025 10:2 0 AM EDT 01/03/2025 12:48 PM EDT us Generic External Data Provider LAB BLOOD ORDERAB LES Final Result Performing Organization Address City/[facility]/ZIP Co de Phone Number [facility] [address] [place] [phone] * Lactic Acid (01/03/2025 10:20 AM EDT) Pathologist [facility] Lactic Acid 1.6 0.5 - 2.0 mmol/L [facility] 01/03/2025 10:2 0 AM EDT 01/03/2025 10:25 AM EDT us Generic External Data Provider LAB BLOOD ORDERAB LES Final Result [facility] [address] [facility] [place] [phone] * XR Chest 1 View (01/03/2025 9:58 AM EDT) Anatomical Region Laterality Modality Chest Radiographic Dasia ging 01/03/2025 9:58 AM EDT Narrative 01/03/2025 10:38 AM EDT ? [facility] ?[address] ?[place] [address] ?XRay Report ? Signed ? Patient: Moisés,Sonny ?MR#: [id number] ?? [id number] ? : 1960 ?Acct:[id number] ? Age/Sex: 64 / M ?ADM Date: 01/03/25 ? Loc: HO.ED ? Attending Dr: ? Ordering Physician: Dee Guillermo MD ?? Date of Service: 01/03/25 ?? Procedure(s): XR chest 1V ?? Accession Number(s): [id number] ? cc: Dee Guillermo MD; Farrah Jackson [...] DD/ 0958 ? TD/TT: 01/03/25 1012 ? Lift Mechanic: ? Procedure Note Donotuseinterpreter, Image - 01/03/[address] [address] XRay Report Signed Patient: Emily Curiel#: [id number] : 9Acct:[id number] Age/Sex: 64 / MADM Date: 01/03/25 Loc: HO.ED Attending Dr: Ordering Physician: Dee Guillermo MD Date of Service: 01/03/25 Procedure(s): XR chest 1V Accession Number(s): [id number] cc: Dee Guillermo MD; Farrah Jackson DO [...] 01/03/25 1035 DD/ 0958 TD/TT: 01/03/25 1012 Lift Mechanic: [facility] External Provider IMG XR PROCEDURES Final Result * Magnesium (11/02/2024 2:34 PM EST) Magnesium 1.6 1.6 - 2.6 mg/dL [facility] 11/02/2024 2:34 PM EST 11/02/2024 2:34 PM EST Generic External Data Provider LAB BLOOD ORDERAB LES Final Result [facility] [address] [place] [phone] * (ABNORMAL) Lipid Panel, Standard (04/21/2024 10:01 AM EDT) Triglycerides 98 <150 mg/dL [facility] Comment:Desirable Triglyceri de: less than 150 mg/dLBorderline High Triglyceride 150-199 mg/dLHigh Triglyceride: 200-499 mg/dLVery High Triglyceride: greater than or equal to 5OO mg/dL Cholesterol 96 <200 mg/dL [facility] Comment:Desirable Cholestero l: less than 200 mg/dLBorderline High Cholesterol: 200-239 mg/dLHigh Cholesterol: greater than 239 mg/dL LDL Cholesterol Calculated 43 <100 mg/dL [facility] Comment:Desirable LDL: less than 100 mg/dLNear Optimal/Above Optimal LDL: 110- 129 mg/dLBorderline High LDL: 130-159 mg/dLHigh LDL: 160-189 mg/dLVery High LDL: greater than or equal to 190 mg/dL HDL Cholesterol 34(L) >40 mg/dL [facility] Comment:Desirable HDL: great er than 40 mg/dL Note: This HDL assay may give artificially low results in patients with liver disease. Blood Venous blood specimen / Unknown 04/21/2024 10:01 AM EDT 04/21/2024 11:11 AM EDT Farrah Jackson DO LAB BLOOD ORDERABLES Final R esult [facility] [address] [place] [phone] * (ABNORMAL) POCT HGB A1C (04/21/2024 9:10 AM EDT) Hemoglobin A1C 6.6(A) 4.0 - 6.0 % QC Media Lot # [id number] Lot# Expiration Date Blood 04/21/2024 9:10 AM EDT Farrah Jackson DO POINT OF CARE TEST ENTER/NILESH T ORDERABLES Final Result * Cologuard?? colon cancer screening (08/26/2023 12:36 PM EDT) Cologuard Result Negative Negative 09/02/20 1:54 AM [employer] (CLIA #:[id number]) Comment: NEGATIVE TEST RESULT. A negative Cologuard [...] (Liang Champion al, N Engl J Med 2014;370(14):1286- 1297) The normal value (reference range) for this assay is negative. COLOGUARD RE-SCREENING RECOMMENDATION: Periodic colorectal cancer screening is an important part of preventive healthcare for asymptomatic individuals at average risk for colorectal cancer. ??Following a negative Cologuard result, the [place] Cancer Society and U.S. Multi-Society Task Force screening guidelines recommend a Cologuard re-screening interval of 3 years. References: [place] [employer] Guideline for Colorectal Cancer Screening: https://www.cancer.org/cancer/emubm-ewgmkc-kvuiiy/hbzanekjc-wrlaxxxnf-oenwnfz/ac s-rec ommendations.html.; Matty DK, Krys HALL, Shelton CoreaK, Colorectal Cancer Screening: Recommendations for Physicians and Patients from the U.S. Multi-Society Task Force on Colorectal Cancer Screening , Am J Gastroenterology 2017; 112:8519-9935. TEST DESCRIPTION: Composite algorithmic analysis of stool [...] (Liang Champion al, N Engl J Med 2014;370(14):7306-1882.) Cologuard may produce a false negative or false positive result (no colorectal cancer or precancerous polyp present at colonoscopy follow up). A negative Cologuard test result does not guarantee the absence of CRC or advanced adenoma (pre-cancer). The current Cologuard screening interval is every 3 years. ([place] [employer] Society and U.S. Multi-Society Task Force). Cologuard performance data in a 10,000 patient pivotal study using colonoscopy as the reference method can be accessed at the following location: www.Ohmx.Vast/results. Additional description of the Cologuard test process, warnings and precautions can be found at www.colBeijing [employer] Technologyrd.Vast. Stool specimen (specimen) 08/26/2023 12:36 PM EDT 08/27/2023 6:19 PM EDT Farrah Jackson DO LAB MOLECULAR DIAGNOSTICS OR DERABLES Final Result Performing Organization Address City/[facility]/ZIP Co de Phone Number [employer] (CLIA #:[id number]) [address] [place] [address], * Hepatitis C Antibody with Reflex to HCV RNA,PCR w/Reflex to Genotype, [facility] (02/10/2023 12:11 PM EDT) Hepatitis C Antibody NON-REACT EYAD NON-REACT EYAD [facility] Index 0.08 <1.00 [employer] [facility] [place] [facility] Comment: HCV antibody was non-reactive. There is no laboratory evidence of HCV infection. In most cases, no further action is required. However, if recent HCV exposure is suspected, a test for HCV RNA (test code 36470) is suggested. For additional information, please refer to http://education.[employer]/faq/EFZ603 (This link is being provided for informational/ educational purposes only.) 02/10/2023 12:1 1 PM EDT 02/10/2023 12:13 PM EDT Narrative [facility] - 02/11/2023 7:21 PM EDT FASTING:NO FASTING: NO Farrah Jackson DO LAB BLOOD ORDERABLES Final R esult Performing Organization Address City/[facility]/ZIP Co de Phone Number [facility] [address] [place] [phone] [facility] [address] [place] [phone] from Last 3 Months or Most Recently Relevant to Health Maintenance Insurance [employer] [facility] [place] [place] [id number] Care Teams Coater Operator Insulation Board Relationship Specialty Start Date End Date Farrah Jackson DO [address] [place] [address] [place] [id number] PCP - General Family Medicine 10/25/18
--- OUTSIDE RECORDS SUMMARY | 2025-01-22 15:26 | XMS_ITS | Encounter Summary ---
Author Organization [employer] Address [address] [place] [address] Care Team Providers Care Track Greaser Name Role Phone Renetta Farrah Primary Care Provider + [phone] Reason for Visit * Reason Onset Date Comments [facility] triage 01/22/2025 Encounter Details Date Type Department Care Team ([facility] st Contact Info) Description 01/22/2025 Telephone [facility] [address] [place] [address] Nancy Sosa, [facility] triage Social History Tobacco Use Types Packs/Day Years [...] encounter Miscellaneous Notes * Telephone Encounter - Nancy Sosa RN - 01/22/2025 11:24 AM EDT Pt presents to [facility] for asthma.Pt taken to triage at approx. 11 am. VSS: Weight: 160.8 lbs RR 20, non labored HR 84 R/A sat 98-99% Temp 98 tymp BP right arm sitting 142/78 Denies pain Pt speaking in full sentences, NAD, PWD. States it's my asthma, I'm coughing yellow sputum . Pt takes his MDI out of his pocket stating none of the asthma meds work . When asked when he last used any of his inhalers, he states last week . 2 recent [facility] visits noted and uploaded to [facility] EMR. LS dim, no rhonci or wheezes noted. Pt saw cardio 01/08/25 for f/u admit mild chf 01/03/25 Medication List - Last Reconciled 01/08/25 by Tomer Carolina MD albuterol sulfate 90 mcg/actuation 2 puffs inhalation QID PRN 1 month atorvastatin (Lipitor) 80 mg PO DAILY budesonide-formoterol 160-4.5 mcg/actuation (Symbicort) 2 puffs inhalation BID carvedilol 18.75 mg PO BID dapagliflozin propanediol (Farxiga) 10 mg PO DAILY furosemide 20 mg PO DAILY hydrocodone-acetaminophen 5-325 mg 1 tab PO Q4-6H PRN meloxicam 7.5 mg PO DAILY metformin 1,000 mg PO BID multivitamin 1 tab PO DAILY sacubitril-valsartan 49-51 mg (Entresto) 1 tab PO BID 90 days sertraline 25 mg PO DAILY spironolactone 25 mg PO DAILY HPI Comments Details: Sonny returns for follow-up regarding nonischemic cardiomyopathy. Has a history of frequent PVCs. Multiple risk factors including diabetes, hypertension, dyslipidemia, but cardiac catheterization did not show any significant coronary disease. Recently, came to the emergency room with complaints of cough and respiratory symptoms. There was a concern for possible congestive heart failure. It seems he got diuretics in the ER. He states he otherwise feels fine now. Shortness of breath is at baseline. No other new complaints. Pacemaker Gout Mioms-9-pbavkqyttap deficiency Encounter for discussion regarding implantable cardioverter-defibrillator Cardiomyopathy COPD (chronic obstructive pulmonary disease) Essential hypertension PVC (premature ventricular contraction) MARVA (obstructive sleep apnea) Carcinoid tumor High cholesterol Prostate enlargement Diabetes Surgical History History of surgical procedure ( 2022) History of prostate surgery Hx of colonoscopy History of bronchoscopy History of lobectomy of lung Admit for CHF 01/03/25: Ceftriaxone Sodium 1 gm 01/03/25 10:12 01/03/25 10:30 Furosemide 40 Mg/4 Ml Vial IVPUSH 01/03/25 14:41 40 mg ONCE ONE Administration Azithromycin 500 mg/ Sodium 250 mls @ 125 mls/hr 01/03/25 10:12 01/03/25 12:37 Emergency Department Note Sonny Curiel MR#: [id number] : 1960 Acct:[id number] Age/Sex: 64 / M ADM Date: 01/03/25 HO.ED Date of Service: Attending Dr: cc: Farrah Jackson DO HPI - URI/Sore Throat General Chief Complaint: Upper Respiratory Symptoms Stated Complaint: Diff Breathing Time Seen by Provider: 01/03/25 09:03 History of Present Illness HPI Narrative: Patient is 64-year-old male presents today with having coughing upper respiratory symptoms that is been ongoing. 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 Patient has a history of diabetes. Coughing productive of yellowish sputum. From home. No vomiting. No diaphoresis. Chest pain only with coughing. No leg swelling. No history of smoking. Positive history of diabetes positive history of hypertension no history of HI no history of strokes. History of having a defibrillator. atorvastatin 80 mg tablet (Lipitor) 80 mg PO DAILY 08/20/20 11/02/24 metformin 500 mg tablet 1,000 mg PO BID 08/20/20 11/02/24 omega-3 fatty acids 1,000 mg 1,000 mg PO BID 08/20/20 11/02/24 capsule albuterol sulfate 90 mcg/actuation 1 inh inhalation QID PRN Shortness 11/22/20 11/02/24 aerosol inhaler Of Breath Or Wheezing carvedilol 12.5 mg tablet 18.75 mg PO BID 05/20/23 11/02/24 multivitamin 1 tab PO DAILY 05/20/23 11/02/24 sertraline 25 mg tablet 25 mg PO DAILY 05/20/23 11/02/24 budesonide-formoterol HFA 160 2 puff inhalation BID #10.2 grams 06/11/21 mcg-4.5 mcg/actuation aerosol inhaler (Symbicort) cyclobenzaprine 10 mg tablet 10 mg PO Q8H PRN Muscle spasm #14 12/08/21 tabs hydrocodone 5 mg-acetaminophen 325 1 tab PO Q4-6H PRN pain #30 tabs 05/25/23 mg tablet sacubitril 49 mg-valsartan 51 mg 1 tab PO BID 90 days #180 tabs 04/14/24 tablet (Entresto) meloxicam 7.5 mg tablet 7.5 mg PO DAILY #14 tabs 05/24/24 furosemide 20 mg tablet 20 mg PO DAILY #90 tabs 07/21/24 spironolactone 25 mg tablet 25 mg PO DAILY #90 tabs 09/19/24 dapagliflozin propanediol 10 mg 10 mg PO DAILY #90 tabs 12/22/24 tablet (Farxiga) albuterol sulfate 90 mcg/actuation 2 puff inhalation QID PRN 01/03/25 aerosol inhaler shortness of breath or wheezing 1 month #8.5 gram Allergy/AdvReac Type Severity Reaction Status Date / Time oxycodone AdvReac Intermediate vomiting, Verified 01/03/25 09:05 delusions Past Medical History Attestation statement: The following information was validated with the patient. Medical History Pacemaker Gout Bscsb-9-twcsrnyjrvz deficiency Encounter for discussion regarding implantable cardioverter-defibrillator Cardiomyopathy COPD (chronic obstructive pulmonary disease) Essential hypertension PVC (premature ventricular contraction) MARVA (obstructive sleep apnea) Carcinoid tumor High cholesterol Prostate enlargement Diabetes Surgical History History of surgical procedure ( 2022) History of prostate surgery Hx of colonoscopy History of bronchoscopy History of lobectomy of lung Family History Son No problems noted. Social History Household Members: Spouse Household Members Other:: Alexsandra Housing: House Are you a primary health care law specialist to a significant other at home: No Do you presently have visiting nurse or other home services: No Alcohol intake: never Patient Tobacco Use Status: Never used Tobacco Smoked in Last 30 Days: No Second Hand Smoke Exposure: No Use of substances other than those prescribed or required for medical reasons: No Advance Directives: No Advance Directives Information Provided: Yes Current occupational status: retired Last Vital Signs Temp 98.4 F 01/03/25 14:12 Pulse 88 01/03/25 15:12 Resp 18 01/03/25 15:12 BP 142/99 H 01/03/25 15:12 Pulse Ox 93 01/03/25 15:12 O2 Del Method Room Air 01/03/25 15:12 O2 Flow Rate 2 01/03/25 09:48 BMI result Body Mass Index 25.5 Appearance: Alert. Oriented X3. No acute distress. Eyes: Pupils equal, round and reactive to light. ENT: Pharynx normal. Neck: Normal inspection. Neck supple. No lymph nodes noted. No crepitus CVS: Normal heart rate and rhythm. Pulses normal. Normal S1 and S2 Respiratory: No respiratory distress. Breath sounds normal. No Wheezing. No rales Abdomen: Soft and nontender. No rigidity. No distention. good BS x4 Skin: Skin warm and dry. Normal skin color. Normal skin turgor. Extremities: No lower extremity edema. Neurovascular intact to all extremities. No Lacerations. No Rash Neuro: Oriented X 3. No motor deficit. No sensory deficit. Moving all extermities. No slurred speech Medications Administered Ceftriaxone Sodium 1 gm 01/03/25 10:12 01/03/25 10:30 Ceftriaxone Sodium 1 Gm Vial IVPUSH 01/03/25 10:13 1 gm ONCE ONE Administration Furosemide 40 mg 01/03/25 14:40 01/03/25 15:11 Furosemide 40 Mg/4 Ml Vial IVPUSH 01/03/25 14:41 40 mg ONCE ONE Administration Protocol Azithromycin 500 mg/ Sodium 250 mls @ 125 mls/hr 01/03/25 10:12 01/03/25 12:37 Chloride IV 01/03/25 12:11 Infused ONCE ONE Infusion Medical Decision Making Medical Decision Making [facility] Narrative: Patient is 64 years old presented today with having increased shortness of breath. Had a history of left lung resection. Question coughing earlier. COVID flu RSV were negative. Radiology interpretation of patient's chest x-ray actually for a scarring in the left upper space question CHF. Patient BNP elevated at 800. Patient is COVID flu RSV were negative. White count was normal. Less likely patient has an infection more likely secondary to congestive heart failure. My interpretation of patient's EKG showed a sinus rhythm heart rate is 90 [place] QRS QTC normal no acute ST segment elevation patient's EKG discussed with information specialist. Patient's case consulted with patient's primary information specialist. Has a history of AICD. The AICD was interrogated. Previous results was reviewed. Has an EF of 25%. Patient ambulated well in the emergency department satting 93-94% on ambulation without any difficulties. Joint decision was made with patient and information specialist to give a dose of Lasix here in the ED. increase the dose of spironolactone to 25 mg b.i.d. for the next 3 days. Close follow-up on an outpatient basis with Cardiology. Patient feel comfortable with this plan and with take a low-salt diet. Currently in stable condition. Will discharge home. Differential Diagnosis Differential Diagnoses: The differential diagnosis associated with the presentation includes Admission/Observation Consideration of admission/observation: Escalation of care including admission/observation considered Consult Healthcare Provider Management of the patient was discussed with: Thermodynamics Teacher ( cardiology) Lab Data [facility] Lab Attestation statement: I reviewed the patient's lab results. 01/03/25 10:20 01/03/25 10:26 Labs: Lab Results 01/03/25 01/03/25 Range/Units 10:20 10:26 WBC 10.2 (4.8-10.8) X10*3/uL RBC 4.72 (4.60-5.80) X10*6/uL Hgb 14.2 (14.0-18.0) g/dl Hct 43.8 (42.0-52.0) % MCV 92.8 (80.0-98.0) fL MCH 30.1 (27.0-33.0) pg MCHC 32.4 (31.0-36.0) g/dl RDW 16.7 H (11.0-16.0) % Plt Count 168 (160-400) X10*3/uL MPV 11.4 (9.4-12.4) fL Immature Gran % (Auto) 0.4 (0.0-0.4) % Neut % (Auto) 69.7 (45-73) % Lymph % (Auto) 18.9 L (20-40) % Dunn % (Auto) 9.5 (2-11) % Eos % (Auto) 0.8 (0-4) % Baso % (Auto) 0.7 (0-2) % Lymph # (Auto) 1.9 (1.2-4.9) X10*3/uL Dunn # (Auto) 1.0 (0.1-1.2) X10*3/uL Eos # (Auto) 0.1 (0.0-0.4) X10*3/uL Baso # (Auto) 0.1 (0.0-0.2) X10*3/uL Abs Immat Gran (auto) 0.04 H (0.00-0.03) X10*3/uL Absolute Neuts (auto) 7.1 (2.0-8.3) x10*3/uL Absolute Nucleated RBC 0.000 (0.0-0.012) X10*3/uL Nucleated RBC % (auto) 0.0 (0.0-0.2) /100WBC Sodium 143 (135-145) mmol/L Potassium 4.1 (3.3-5.1) mmol/L Chloride 111 H (96-108) mmol/L Carbon Dioxide 25 (22-29) mmol/L Anion Gap 11 L (12-20) BUN 16 (9-16) mg/dL Creatinine 0.90 (0.5-1.4) mg/dL Estim Creat Clear Calc 75.4 Estimated GFR > 60 Random Glucose 121 H (60-115) mg/dL Lactic Acid 1.6 (0.5-2.0) mmol/L Calcium 9.1 D (8.4-10.2) mg/dL Total Bilirubin 1.2 H (0.0-1.0) mg/dL Direct Bilirubin 0.4 (0.0-0.5) mg/dL AST 24 (5-37) U/L ALT 19 (0-40) U/L Alkaline Phosphatase 66 (39-117) U/L Troponin I High Sens 15.1 (<3.5-35.0) ng/L B-Natriuretic Peptide 813 H (<100) pg/mL Total Protein 7.1 (6.5-8.0) g/dL Albumin 3.9 (3.5-5.0) g/dL Influenza Type A (PCR) NEGATIVE (Negative) Influenza Type B (PCR) NEGATIVE (Negative) RSV RNA Qual (PCR) NEGATIVE (Negative) SARS-CoV-2 RNA (RT-PCR) NEGATIVE (Negative) Independent Interpretation I performed an independent interpretation of an: EKG ( my interpretation of patient's EKG as above.) and Plain X-Ray ( Mild congestive heart failure) Radiology Impression Discussion of test interpretation with radiology: I have reviewed the radiologist's reading. Independent Historian Clinical information obtained from an independent historian. History obtained from or confirmed by: Spouse External record reviewed: Inpatient record previous echo report. Pacemaker was interrogated. Pacemaker interrogation report Chronic Conditions Patient?s care impacted by: Diabetes and Hypertension congestive heart failure Discharge Plan Clinical Impression: Congestive heart failure Patient Disposition: Home, Self-Care Instructions: Heart Failure (ED) Additional Instructions: L please increase the spironolactone to twice a day for the next 3 days. Please follow a strict low-salt diet Prescriptions: New albuterol sulfate 90 mcg/actuation HFA aerosol inhaler 2 puff inhalation QID PRN (Reason: shortness of breath or wheezing) 30 Days Qty: 8.5 0RF No Action budesonide-formoterol [Symbicort] 160-4.5 mcg/actuation HFA aerosol inhaler 2 puff inhalation BID Qty: 10.2 11RF Entresto 49-51 mg tablet 1 tab PO BID 90 Days Qty: 180 3RF furosemide 20 mg tablet 20 mg PO DAILY Qty: 90 3RF spironolactone 25 mg tablet 25 mg PO DAILY Qty: 90 3RF Farxiga 10 mg tablet 10 mg PO DAILY Qty: 90 3RF albuterol sulfate 90 mcg/actuation HFA aerosol inhaler 1 inh inhalation QID PRN (Reason: Shortness Of Breath Or Wheezing) cyclobenzaprine 10 mg tablet 10 mg PO Q8H PRN (Reason: Muscle spasm) Qty: 14 0RF multivitamin Tablet 1 tab PO DAILY sertraline 25 mg Tablet 25 mg PO DAILY carvedilol 12.5 mg tablet 18.75 mg PO BID hydrocodone-acetaminophen 5-325 mg tablet 1 tab PO Q4-6H PRN (Reason: pain) Qty: 30 0RF Rx Instructions: Partial Fill upon patient request. meloxicam 7.5 mg tablet 7.5 mg PO DAILY Qty: 14 0RF omega-3 fatty acids 1,000 mg capsule 1,000 mg PO BID atorvastatin [Lipitor] 80 mg tablet 80 mg PO DAILY metformin 500 mg tablet 1,000 mg PO BID Referrals: Tomer Carolina MD [Physician] - 01/05/25 documented in this encounter Plan of Treatment Not on file documented as of this encounter Visit Diagnoses Not on filedocumented in this encounter Additional Health Concerns Assessment Noted Time PHQ-9 Depression Total Score: 2 04/21/20 24 8:50 AM EDT documented as of this encounter Care Teams Track Greaser Relationship Specialty Start Date End Date Farrah Jackson DO [address] [place] [address] PCP - General Family Medicine 10/25/18 documented as of this encounter
--- OUTSIDE RECORDS SUMMARY | 2025-01-22 15:26 | XMS_ITS | Encounter Summary ---
Author Organization [employer] Address [address] [place] [address] Care Team Providers Care Peer Counselor Name Role Phone KrissyFarrah knight Primary Care Provider + [phone] Reason for Visit * Reason Comments Med Refill Encounter Details Date Type Department [facility] Description 11/19/2023 Refill [facility] [address] [place], [place] [phone] Juana Wilson MD [address] [place], [place] [phone] Social History Tobacco Use Types Packs/Day Years [...] on filedocumented in this encounter Care Teams Peer Counselor Relationship Specialty Start Date End Date Farrah Jackson DO [address] [place] [address] PCP - General Family Medicine 10/25/18 documented as of this encounter
== END 2025-01-22 13:40 | disposition home or self-care (01) ==
LOC: HO.XRAY 13:39
PROVIDERS: PCP Family Medicine; Visit Provider Emergency Medicine
DX: R05.1 Acute cough (principal)
CPT/HCPCS: 71046

== ENCOUNTER → 2025-01-22 13:43 | Outpatient (BNV) | payer OTHER, SELFPAY | PROVIDERS: PCP Family Medicine; Visit Provider Radiology Diagnostic Radiology | DX: I51.7 Cardiomegaly (principal) | CPT/HCPCS: 71046 ==

== ENCOUNTER → 2025-02-21 23:59 | Outpatient (BNV) | payer OTHER, SELFPAY ==
--- NOTE | 2025-03-01 20:50 | MHC.OFFVIS ---
Intake Visit Reasons: Remote HF monitoring- [employer] Allergies oxycodone Adverse Reaction (Intermediate, Verified 01/03/25 09:05) vomiting, delusions PFSH Medical History Pacemaker Gout Fgxjw-3-sxdghknpfmw deficiency Encounter for discussion regarding implantable cardioverter-defibrillator Cardiomyopathy COPD (chronic obstructive pulmonary disease) Essential hypertension PVC (premature ventricular contraction) MARVA (obstructive sleep apnea) Carcinoid tumor High cholesterol Prostate enlargement Diabetes Surgical History History of surgical procedure (~2022) History of prostate surgery Hx of colonoscopy History of bronchoscopy History of lobectomy of lung Family History Son No problems noted. Father No problems noted. 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 [id number] Cardiac Device Interrogation, cardio physiologic monitor Procedure code (CPT) selection complete Assessment & Plan Assessment & Plan (1) S/P ICD (internal cardiac defibrillator) procedure: Code(s): Z95.810 - Presence of automatic (implantable) cardiac defibrillator Category: Surgical (2) NICM (nonischemic cardiomyopathy): Code(s): I42.8 - Other cardiomyopathies Category: Medical Plan x Coding Level of Care Code Procedure Only Diagnoses S/P ICD (internal cardiac defibrillator) procedure Z95.810 NICM (nonischemic cardiomyopathy) I42.8 CPT Codes Cardiac Device Check - Cardiac Device 15: [id number] Cardiac Device Interrogation, cardio physiologic monitor ([id number])
== END ==
PROVIDERS: PCP Family Medicine; Visit Provider Internal Medicine
DX: I42.8 Other cardiomyopathies (principal); Z95.810 Presence of automatic (implantable) cardiac defibrillator
CPT/HCPCS: 93297

== ENCOUNTER 2025-03-17 09:34 | Emergency (ER) | payer OTHER, SELFPAY ==
--- NOTE | ~2025-03-17 | XR_ITS ---
CLINICAL HISTORY: dyspnea 2 view chest x-ray Comparison: CR/SR - XR CHEST 2V - 01/22/25 13:55 EDT Findings: No consolidation or effusion. Cardiac pacemaker is present. Prominent mediastinal and left epicardial fat as previously noted. No acute fracture. IMPRESSION: 1. No acute findings. This document has been electronically signed by: Alphonse Nuñez MD on 03/17/2025 11:25:12
[2025-03-17 09:40] VITALS: BP 130/108; PULSE 82; RESP 16; TEMP 36.8; O2SAT 99; BMI 24.3
--- NOTE | 2025-03-17 09:47 | ED.SOB ---
HPI - SOB/Dyspnea General Chief Complaint: Dyspnea Stated Complaint: diff breathing Time Seen by Provider: 03/17/25 09:47 Source: patient Mode of arrival: ambulatory Limitations: no limitations History of Present Illness ED Provider: HPI Narrative: 64-year-old male with history of CHF, lung resection, asthma, has been short of breath for the past few days, using nebulizer with the much relief, no fevers or chills no hemoptysis reported. No chest pain reported, states short of breath is exertional. MD elicited complaint: shortness of breath Related Data Home Medications ?Medication ?Instructions ?Recorded ?Confirmed atorvastatin 80 mg tablet (Lipitor) 80 mg PO DAILY 08/20/20 01/08/25 metformin 500 mg tablet 1,000 mg PO BID 08/20/20 01/08/25 carvedilol 12.5 mg tablet 18.75 mg PO BID 05/20/23 01/08/25 multivitamin 1 tab PO DAILY 05/20/23 01/08/25 sertraline 25 mg tablet 25 mg PO DAILY 05/20/23 01/08/25 Previous Rx's ?Medication ?Instructions ?Recorded budesonide-formoterol HFA 160 2 puff inhalation BID #10.2 grams 06/11/21 mcg-4.5 mcg/actuation aerosol inhaler (Symbicort) hydrocodone 5 mg-acetaminophen 325 1 tab PO Q4-6H PRN pain #30 tabs 05/25/23 mg tablet sacubitril 49 mg-valsartan 51 mg 1 tab PO BID 90 days #180 tabs 04/14/24 tablet (Entresto) meloxicam 7.5 mg tablet 7.5 mg PO DAILY #14 tabs 05/24/24 furosemide 20 mg tablet 20 mg PO DAILY #90 tabs 07/21/24 spironolactone 25 mg tablet 25 mg PO DAILY #90 tabs 09/19/24 dapagliflozin propanediol 10 mg 10 mg PO DAILY #90 tabs 12/22/24 tablet (Farxiga) albuterol sulfate 90 mcg/actuation 2 puff inhalation QID PRN 01/03/25 aerosol inhaler shortness of breath or wheezing 1 month #8.5 grams furosemide 20 mg tablet 20 mg PO BID 10 days #15 tabs 03/17/25 Allergies Allergy/AdvReac Type Severity Reaction Status Date / Time oxycodone AdvReac Intermediate vomiting, Verified 03/17/25 09:42 delusions Review of Systems Constitutional: Constitutional: Reports as per [facility] Past Medical History Medical History Pacemaker Gout Vutoc-[id number] deficiency Encounter for discussion regarding implantable cardioverter-defibrillator Cardiomyopathy COPD (chronic obstructive pulmonary disease) Essential hypertension PVC (premature ventricular contraction) MARVA (obstructive sleep apnea) Carcinoid tumor High cholesterol Prostate enlargement Diabetes Surgical History History of surgical procedure (~2022) History of prostate surgery Hx of colonoscopy History of bronchoscopy History of lobectomy of lung Family History Family History Son No problems noted. Father No problems noted. 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 Physical Exam Vital Signs: Vital Signs: Last Vital Signs Temp 98.6 F 03/17/25 10:00 Pulse 86 03/17/25 10:00 Resp 20 03/17/25 10:00 BP 119/88 03/17/25 10:00 Pulse Ox 95 03/17/25 10:00 O2 Del Method Room Air 03/17/25 10:00 BMI result Body Mass Index 24.3 Const: Other: Gen: ?Overall well-appearing patient HEENT: PERRLA, EOMI, MMM, Neck: Supple, no LAD CV: RRR, no obvious murmurs appreciated Resp: ?No wheezing rales rhonchi no stridor moving air well Abd: ?Bowel sounds are present, no tenderness no rebound no rigidity MSK: FROM, strength 5/5 all extremities Skin: Warm, dry, intact, Neuro: ?Alert and oriented x3, moving upper and lower extremities symmetrically, no obvious facial asymmetry noted Medical Decision Making Medical Decision Making MDM Narrative: Some of the considerations for workup as below he has had prior ED visits with CHF today his lungs are fairly clear he is not wheezing I do not suspect this is an asthma exacerbation, PE is a consideration though he is not hypoxic tachycardic I am not able to perk him up we will obtain D-dimer and my suspicion is low, at this time we will hold off any treatment we will continue to monitor, this does not appear to be infectious in etiology no fevers or chills no cough. 11:22 BNP is quite elevated for him, age adjusted D-dimer is negative, we will start diuresing, we will ambulate make sure he is not hypoxic, we will consider discharging with diuretics unless he is hypoxic or significantly tachycardic then we will admit, this plan of care has been discussed with the patient, he is comfortable with this plan 1144 patient did very well with ambulation did not tachycardic or hypoxic Differential Diagnosis Differential Diagnoses: The differential diagnosis associated with the presentation includes ACS, pneumothorax, pneumonia, PE, CHF Admission/Observation Consideration of admission/observation: Escalation of care including admission/observation considered Lab Data [facility] Lab Attestation statement: I reviewed the patient's lab results. 03/17/25 10:06 03/17/25 10:06 Labs: Lab Results 03/17/25 03/17/25 Range/Units 10:06 10:10 WBC 7.2 (4.8-10.8) X10*3/uL RBC 4.51 L (4.60-5.80) X10*6/uL Hgb 13.6 L (14.0-18.0) g/dl Hct 41.1 L (42.0-52.0) % MCV 91.1 (80.0-98.0) fL MCH 30.2 (27.0-33.0) pg MCHC 33.1 (31.0-36.0) g/dl RDW 15.9 (11.0-16.0) % Plt Count 136 L (160-400) X10*3/uL MPV 11.1 (9.4-12.4) fL Immature Gran % (Auto) 0.3 (0.0-0.4) % Neut % (Auto) 65.0 (45-73) % Lymph % (Auto) 23.5 (20-40) % Carter % (Auto) 9.3 (2-11) % Eos % (Auto) 1.3 (0-4) % Baso % (Auto) 0.6 (0-2) % Lymph # (Auto) 1.7 (1.2-4.9) X10*3/uL Carter # (Auto) 0.7 (0.1-1.2) X10*3/uL Eos # (Auto) 0.1 (0.0-0.4) X10*3/uL Baso # (Auto) 0.0 (0.0-0.2) X10*3/uL Abs Immat Gran (auto) 0.02 (0.00-0.03) X10*3/uL Absolute Neuts (auto) 4.7 (2.0-8.3) x10*3/uL Absolute Nucleated RBC 0.000 (0.0-0.012) X10*3/uL Nucleated RBC % (auto) 0.0 (0.0-0.2) /100WBC D-Dimer High Sensitivty 299 NG/ML Sodium 144 (135-145) mmol/L Potassium 3.5 (3.3-5.1) mmol/L Chloride 111 H (96-108) mmol/L Carbon Dioxide 25 (22-29) mmol/L Anion Gap 12 (12-20) BUN 15 (9-16) mg/dL Creatinine 0.67 (0.5-1.4) mg/dL Estim Creat Clear Calc 101.3 Estimated GFR > 60 Random Glucose 114 (60-115) mg/dL Lactic Acid 1.3 (0.5-2.0) mmol/L Calcium 9.0 (8.4-10.2) mg/dL Troponin I High Sens 15.0 (<3.5-35.0) ng/L B-Natriuretic Peptide 2319 H (<100) pg/mL Independent Interpretation I performed an independent interpretation of an: EKG (79, otherwise normal ECG without dysrhythmia, AV ranjith blocks or ST-T changes to suspect underlying ACS, my independent interpretation) and Plain X-Ray (Cardiomegaly, AICD device, S some postop volume loss and scarring of the left lung that is not new) Discharge Plan Discharge Clinical Impression: Congestive heart failure, Dyspnea due to congestive heart failure Patient Disposition: Home, Self-Care Additional Instructions: You were evaluated with exertional shortness of breath, your workup today raise suspicion for congestive heart failure mostly based on your blood work your BNP was elevated much more so than your prior visits, chest x-ray EKG your cardiac enzymes has been reassuring, you received the 1st dose for the day IV or furosemide, thereafter please follow instructions and prescription taking 2 pills daily for the next starting tomorrow and then 1 pill daily for additional 5 days, follow up with the PCP and if you have any worsening issues or shortness of breath is not getting better or you develop worsening chest pain no need to concerns please do not hesitate to come back to emergency department for evaluation. Prescriptions: New furosemide 20 mg tablet 20 mg PO BID 10 Days Qty: 15 0RF Rx Instructions: take twice daily for 5 days and then one daily for the next five No Action budesonide-formoterol [Symbicort] 160-4.5 mcg/actuation HFA aerosol inhaler 2 puff inhalation BID Qty: 10.2 11RF Entresto 49-51 mg tablet 1 tab PO BID 90 Days Qty: 180 3RF furosemide 20 mg tablet 20 mg PO DAILY Qty: 90 3RF spironolactone 25 mg tablet 25 mg PO DAILY Qty: 90 3RF Farxiga 10 mg tablet 10 mg PO DAILY Qty: 90 3RF multivitamin Tablet 1 tab PO DAILY sertraline 25 mg Tablet 25 mg PO DAILY carvedilol 12.5 mg tablet 18.75 mg PO BID hydrocodone-acetaminophen 5-325 mg tablet 1 tab PO Q4-6H PRN (Reason: pain) Qty: 30 0RF Rx Instructions: Partial Fill upon patient request. meloxicam 7.5 mg tablet 7.5 mg PO DAILY Qty: 14 0RF albuterol sulfate 90 mcg/actuation HFA aerosol inhaler 2 puff inhalation QID PRN (Reason: shortness of breath or wheezing) 30 Days Qty: 8.5 0RF atorvastatin [Lipitor] 80 mg tablet 80 mg PO DAILY metformin 500 mg tablet 1,000 mg PO BID Referrals: Farrah Jackson DO [Primary Care Provider] - Print Language: Citizen [place]
--- NOTE | 2025-03-17 09:50 | ECG_ITS ---
Test Reason : Dyspena Blood Pressure : */* mmHG Vent. Rate : 79 BPM Atrial Rate : 79 BPM P-R Int : 122 ms QRS Dur : 94 ms QT Int : 396 ms P-R-T Axes : 47 -5 115 degrees QTcB Int : 454 ms Sinus rhythm with Premature supraventricular complexes and with occasional Premature ventricular complexes Nonspecific ST and T wave abnormality Abnormal ECG When compared with ECG of 03-Jan-2025 14:50, Premature supraventricular complexes are now Present Referred By: Tim Dodge Electronically Signed By: Flakito Acosta
[2025-03-17 10:00] VITALS: BP 119/88; PULSE 86; RESP 20; TEMP 37; O2SAT 95
[2025-03-17 10:18] LABS: MANUAL DIFF FLAG NO
--- OUTSIDE RECORDS SUMMARY | 2025-03-17 10:18 | XMS_ITS | Encounter Summary ---
Author Organization [employer] Address [address] [place] [address] Care Team Providers Care Labor Standards Director Name Role Phone Farrah Jackson DO Primary Care Provider + [phone] Encounter Details Date Type Department Care Team (Late st Contact Info) Description 01/15/2023 Orders Only [facility] [address] [place], [place] [phone] Farrah Baird LPN Social History Tobacco Use [...] on filedocumented in this encounter Care Teams Labor Standards Director Relationship Specialty Start Date End Date Farrah Jackson DO [address] [place] [id number] PCP - General Family Medicine 10/25/18 documented as of this encounter
[2025-03-17 10:22] LABS: Basophils Percent Auto 0.6 % (0-2); Eosinophils Absolute Auto 0.1 X10*3/uL (0.0-0.4); Eosinophils Percent Auto 1.3 % (0-4); Hematocrit 41.1 % (42.0-52.0); Hemoglobin 13.6 g/dl (14.0-18.0); Imm Gran Abs Auto 0.02 X10*3/uL (0.00-0.03); Imm Gran Pct Auto 0.3 % (0.0-0.4); Lymphocytes Absolute Auto 1.7 X10*3/uL (1.2-4.9); Lymphocytes Percent Auto 23.5 % (20-40); Mean Corpuscular HGB Conc 33.1 g/dl (31.0-36.0); Mean Corpuscular Hemoglobin 30.2 pg (27.0-33.0); Mean Corpuscular Volume 91.1 fL (80.0-98.0); Mean Platelet Volume 11.1 fL (9.4-12.4); Monocytes Absolute Auto 0.7 X10*3/uL (0.1-1.2); Monocytes Percent Auto 9.3 % (2-11); Neutrophils Absolute Auto 4.7 x10*3/uL (2.0-8.3); Platelet Count 136 X10*3/uL (160-400); Red Blood Count 4.51 X10*6/uL (4.60-5.80); Red Cell Distribution Width 15.9 % (11.0-16.0); White Blood Count 7.2 X10*3/uL (4.8-10.8)
[2025-03-17 10:28] LABS: D Dimer High Sensitivity 299 NG/ML
[2025-03-17 10:34] LABS: Anion Gap 12 (12-20); Blood Urea Nitrogen 15 mg/dL (9-16); Carbon Dioxide 25 mmol/L (22-29); Chloride 111 mmol/L (96-108); Creatinine Clr Calc Pharmacy 101.3; Estimated Glomerular Filt Rate > 60; Glucose Random 114 mg/dL (60-115); Potassium 3.5 mmol/L (3.3-5.1); Sodium 144 mmol/L (135-145)
[2025-03-17 10:36] LABS: Lactic Acid 1.3 mmol/L (0.5-2.0)
[2025-03-17 11:14] LABS: B Type Natriuretic Peptide 2319 pg/mL (<100)
--- NOTE | 2025-03-17 11:40 | MHC.EDTECH ---
Patient got ambulated HR 85 with Oxygen 96%. NO SOB,NO dizziness notice
[2025-03-17 11:54] VITALS: BP 131/79; PULSE 81; RESP 20; TEMP 36.7; O2SAT 94
[2025-03-17] MEDS: Furosemide 40 MG/4 ML VIAL IVPUSH (11:54)
[2025-03-17 12:02] VITALS: BP 131/79; PULSE 81; RESP 20; TEMP 36.7; O2SAT 94
== END 2025-03-17 12:06 | disposition home or self-care (01) ==
PROVIDERS: Emergency Provider Emergency Medicine; PCP Family Medicine
DX: R06.02 Shortness of breath (principal); I50.9 Heart failure, unspecified; Z79.899 Other long term (current) drug therapy
CPT/HCPCS: 36415; 71046; 80048; 83605; 83880; 84484; 85025; 85379; 93005; 96374; 99284; J1938

== ENCOUNTER → 2025-03-17 09:50 | Outpatient (BNV) | payer OTHER, SELFPAY | PROVIDERS: Emergency Provider Emergency Medicine; PCP Family Medicine; Visit Provider Internal Medicine Cardiovascular Disease | DX: I49.1 Atrial premature depolarization (principal); I49.3 Ventricular premature depolarization | CPT/HCPCS: 93010 ==

== ENCOUNTER → 2025-03-17 09:52 | Outpatient (BNV) | payer OTHER, SELFPAY | PROVIDERS: Emergency Provider Emergency Medicine; PCP Family Medicine; Visit Provider Radiology Diagnostic Radiology | DX: R06.00 Dyspnea, unspecified (principal) | CPT/HCPCS: 71046 ==

== ENCOUNTER → 2025-03-24 23:59 | Outpatient (BNV) | payer OTHER, SELFPAY ==
--- NOTE | 2025-04-04 20:58 | A.OFFVIS_ITS ---
Intake Visit Reasons: Remote HF monitoring- [employer] Allergies oxycodone Adverse Reaction (Intermediate, Verified 03/27/25 13:14) vomiting, delusions PFSH Medical History Pacemaker Gout Aumfa-0-uphexnxyzey deficiency Encounter for discussion regarding implantable cardioverter-defibrillator Cardiomyopathy COPD (chronic obstructive pulmonary disease) Essential hypertension PVC (premature ventricular contraction) MARVA (obstructive sleep apnea) Carcinoid tumor High cholesterol Prostate enlargement Diabetes Surgical History History of surgical procedure (~2022) History of prostate surgery Hx of colonoscopy History of bronchoscopy History of lobectomy of lung Family History Son No problems noted. Father No problems noted. 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 [id number] Cardiac Device Interrogation, cardio physiologic monitor Procedure code (CPT) selection complete Assessment & Plan Assessment & Plan (1) S/P ICD (internal cardiac defibrillator) procedure: Code(s): Z95.810 - Presence of automatic (implantable) cardiac defibrillator Category: Surgical (2) NICM (nonischemic cardiomyopathy): Code(s): I42.8 - Other cardiomyopathies Category: Medical Plan x Coding Level of Care Code Procedure Only Diagnoses S/P ICD (internal cardiac defibrillator) procedure Z95.810 NICM (nonischemic cardiomyopathy) I42.8 CPT Codes Cardiac Device Check - Cardiac Device 15: [id number] Cardiac Device Interrogation, cardio physiologic monitor ([id number])
== END ==
PROVIDERS: PCP Family Medicine; Visit Provider Internal Medicine
DX: I42.8 Other cardiomyopathies (principal); Z95.810 Presence of automatic (implantable) cardiac defibrillator
CPT/HCPCS: 93297

== ENCOUNTER 2025-03-27 13:00 | Outpatient (AMB) | payer OTHER, SELFPAY ==
[2025-03-27 13:10] VITALS: BP 128/70; PULSE 72; O2SAT 98; BMI 23.6
--- NOTE | 2025-03-27 13:10 | A.OFFVIS_ITS ---
Vital Signs 03/27/25 13:10 Height 5 ft 7 in Weight 151 lb 0.266 oz BMI 23.6 BP 128/70 Blood Pressure Location Lt brachial Position Sitting Pulse 72 Pulse Source Pulse Oximeter Pulse Oximetry (%) 98 Oxygen Delivery Method Room Air Intake Visit Reasons: COPD/MARVA Allergies oxycodone Adverse Reaction (Intermediate, Verified 03/27/25 13:14) vomiting, delusions HPI Comments Details: The patient is a 64-year-old gentleman with a known history of recurrent pneumonias in a diagnosis of carcinoid. Apparently the patient was in the usual state health until about 10 years ago when he started developing recurrent pneumonias. He was found to have a pulmonary mass and was referred to [facility]. He was seen by thoracic surgery in and underwent a partial left upper lobe lobectomy removing what appeared to be a carcinoid per report. I do not have the pathology to review. The patient did have follow-up afterwards but did not requi re any additional therapies. Overall continue to do well. More recent the patient was developing worse per 3 symptoms and had a repeat chest x-ray back in January 13 demonstrating increase interval haziness of his lungs suggesting of pneumonia and potential pleural effusion. Was treated for that and then discharged. Current the patient feels better he is exercising he denies any significant cough. He states his appetite is good is maintaining his weight. He has lost weight because does been intentional with his lifestyle changes in his exercise. He does have some mild dyspnea on exertion. We did go for a brief walking oximetry in his pulse ox maintain 96 97% with activity with is reassuring. We did review his imaging studies he had her CT scan last done in 2014 demonstrating some bronchiectatic changes in addition to some postoperative changes. We did review his echocardiogram from January demonstrating an EF of 35- 40%. While we wait for the results of the studies will go ahead and start him on Symbicort to see if he gets any benefit from the long-acting beta agonist inhaled cortical steroid. 06/17/2020 The patient is here for pulmonary follow-up visit. Initially was feeling very good on the Symbicort. He was able to go to work in his breathing had improved dramatically. However, later he started developing nausea and vomiting after he used it. Was like if he was having allergic reaction to it or an adverse reaction to her. However he kept using it because he could not breathe well. He still continues use about his feels like is now getting more short of breath with minimal activity. He was supposed to get his pulmonary function studies but because of his worsening breathing he was not able to do them. He did not get a CT scan of the chest. On further questioning also complains that he has been coughing up some mucus with also some blood-tinged sputum. He denies any leg swelling history of blood clots. In the blood work we did request a D-dimer that came back elevated. Therefore because of his respiratory symptoms his hemoptysis is elevated D-dimer I will request a CT scan angiogram of the chest to assess for thromboembolic disease. 07/09/2020 the patient is a telephone visit. He is starting to complain about shortness of breath. Initially the last time we did give him Lasix which she took for several days in his respiratory status became significantly better. However, his Lasix was then completed and he started having worsening shortness of breath. We did review his last echocardiogram demonstrating an EF of 45% with hypokinesis of the left ventricle. In addition to that we did discuss the CT scan findings again. The patient was supposed to go for repeat echocardiogram but he has not done so. He was also supposed to undergo pulmonary function studies but he has not done so. In the meantime explained to him that he is already taking a diuretic, hydrochlorothiazide. My recommendation is for him to take Lasix for 3 additional days and reassess. In the meantime, we talked about the importance of dietary restrictions limiting his sodium intake. The patient is aware that he has to make lifestyle changes and is going to start this as santo n as possible. 08/20/2020 the patient is here for pulmonary follow-up visit. Recently he started developing worsening shortness of breath. He did go to the ER. Had a chest x-ray demonstrating some cephalization bilateral pleural effusions. There were small. He did undergo an echocardiogram demonstrating a decreased ejection fraction of about 20-25%. Become very concerned about this. He does have a follow-up with cardiology soon. In meantime he is having daytime drowsiness. He is having headaches in morning. Now with significant cardiac disease to repeat his sleep study. Will try to have him get a home sleep study at this time. Continues with diuresis and his cardiac medications were optimized further. He does have a short-acting beta agonist that he uses as needed. At t his point will not going to add any additional inhalers to minimize interactions with his cardiac issues. We did review his last CT scan of the chest that he had recently when he went to the ER which was reassuring. 02/05/2022 the patient is here for pulmonary follow-up visit. Overall the patient is doing well. He has been staying active and Still participating in pulmonary rehabilitation. He has found the pulmonary rehab extremely helpful. He would like to continue it. Will request that he continue on face 3. he also has been very compliant with his CPAP. The CPAP therapy has been affecting beneficial. He does use it all night more than 4 hours a night. Has been getting supplies regularly. His last echocardiogram was back in October 2020 which demonstrated an EF of 25-30%. Will go ahead and repeated at this time. In addition to this he had CTA recently back in November 2021 demonstrating stable lung parenchyma without any recurrence of the carcinoid. 03/27/2025 the patient is here for pulmonary follow-up visit. Overall the patient has been doing okay. Back in February he did go to the ER with shortness of breath. He had a chest x-ray demonstrating congestive heart failure. Was placed on Lasix and was discharged. He felt much better. The patient has been trying to be careful the sodium intake. He now continues to take 1 tablet of Lasix tingling. Will go ahead and keep him on it. He will see Cardiology in a month. He is already on very good congestive heart failure treatment. It also has his ICD. He understands that he has a very careful with the fluid status. In the meantime he continues has significant daytime drowsiness. His [place] is elevated 12/24. The patient did have CPAP in the past but he could not tolerate any longer. Therefore stopped using it. With cardiovascular disease and congestive heart failure he understands is very important for him to tolerated. Will go ahead and order an in-lab sleep study at this time to get him reactivity with the [employer] company and start treating him again for the sleep apnea. The patient is agreeable at this time. Will follow-up in 3 3 months after the study to review and to start the therapy. Will discuss additional imaging during the next visit. [facility] Medical History Pacemaker Gout Cmljz-[id number] deficiency Encounter for discussion regarding implantable cardioverter-defibrillator Cardiomyopathy COPD (chronic obstructive pulmonary disease) Essential hypertension PVC (premature ventricular contraction) MARVA (obstructive sleep apnea) Carcinoid tumor High cholesterol Prostate enlargement Diabetes Surgical History History of surgical procedure (~2022) History of prostate surgery Hx of colonoscopy History of bronchoscopy History of lobectomy of lung Family History Son No problems noted. Father No problems noted. 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 Review of Systems Const Denies night sweats ENT Denies change in voice, Denies lip swelling, Denies mouth pain, Denies nasal congestion, Denies nasal discharge and Denies tongue swelling Card Denies chest pain, Reports dyspnea on exertion and Denies orthopnea Resp Reports cough and Reports dyspnea on exertion GI Denies abdominal pain Musc Denies no additional complaints Neuro Denies Neuro-related abnormal movements Psych Denies no additional complaints Jack/Lymph Denies easy bleeding and Denies lymphadenopathy Aller/Immun Denies lip swelling and Denies tongue swelling Physical Exam Vital Signs: Last Vital Signs Pulse 72 03/27/25 13:10 BP 128/70 03/27/25 13:10 Pulse Ox 98 03/27/25 13:10 Oxygen Delivery Method Room Air 03/27/25 13:10 BMI result Body Mass Index 23.6 Const General: alert Neck Neck: Yes normal visual inspection, Yes full ROM and Yes no lymphadenopathy Chest Chest palpation & inspection: normal inspection of the chest Resp Effort & Inspection: normal respiratory effort Auscultation: diminished lung sounds Cardio Rate: regular rate Rhythm: regular rhythm Heart sounds: S1 normal heart sound present and S2 normal heart sound present GI Palpation (GI): Soft to palpation and nontender Auscultation: normal bowel sounds Skin General skin exam: rashes and/or lesions noted Results Reviewed Results Reviewed: 03/21/25 CXR personally reviewed by me with CHF ECHO EF 20% Assessment & Plan Assessment & Plan (1) MARVA (obstructive sleep apnea): Code(s): G47.33 - Obstructive sleep apnea (adult) (pediatric) Category: Medical (2) NICM (nonischemic cardiomyopathy): Code(s): I42.8 - Other cardiomyopathies Category: Medical (3) S/P ICD (internal cardiac defibrillator) procedure: Code(s): Z95.810 - Presence of automatic (implantable) cardiac defibrillator Category: Surgical (4) Tachycardia, unspecified: Code(s): R00.0 - Tachycardia, unspecified Category: Medical Plan in lab PSG continue lasix until follow up with cardiology continue Symbicort JUANITA as needed Low Na diet F/U 3-4 months Orders: Orders RT PSG in-lab sleep study 03/27/25 G47.33 - Obstructive sleep apnea (adult) (pediatric), I42.8 - Other cardiomyopathies, R00.0 - Tachycardia, unspecified, Z95.810 - Presence of automatic (implantable) cardiac defibrillator Medications: Changed From furosemide take twice daily for 5 days and then one daily for the next five 20 mg PO BID 10 days 15 tabs 0RF To furosemide take twice daily for 5 days and then one daily for the next five 20 mg PO DAILY 30 days 30 tabs 0RF Coding Level of Care Code Est Pt Level 5 (31340) Diagnoses MARVA (obstructive sleep apnea) G47.33 NICM (nonischemic cardiomyopathy) I42.8 S/P ICD (internal cardiac defibrillator) procedure Z95.810 Tachycardia, unspecified R00.0 Time Spent (min) 45
--- OUTSIDE RECORDS SUMMARY | 2025-03-27 14:26 | XMS_ITS | Encounter Summary ---
Author Organization [employer] Address [address] [place] [address] [place] [address] Care Team Providers Care Capsule Maker Name Role Phone Farrah Jackson DO Primary Care Provider + [phone] Encounter Details Date Type Department Care Team (Late st Contact Info) Description 01/15/2023 Orders Only [facility] [address] [place], [place] [phone] Farrah Baird LPN Social History Tobacco Use [...] on filedocumented in this encounter Care Teams Capsule Maker Relationship Specialty Start Date End Date Farrah Jackson DO [address] [place] [id number] PCP - General Family Medicine 10/25/18 documented as of this encounter
== END 2025-03-27 13:39 | disposition home or self-care (01) ==
LOC: HO.HPS 13:01
PROVIDERS: PCP Family Medicine; Visit Provider Hospitalist
DX: G47.33 Obstructive sleep apnea (adult) (pediatric) (principal); I42.8 Other cardiomyopathies; Z95.810 Presence of automatic (implantable) cardiac defibrillator; R00.0 Tachycardia, unspecified
CPT/HCPCS: 99215

== ENCOUNTER → 2025-03-27 13:00 | Outpatient (BNVA) | payer OTHER, SELFPAY | PROVIDERS: PCP Family Medicine; Visit Provider Hospitalist | DX: G47.33 Obstructive sleep apnea (adult) (pediatric) (principal); I42.8 Other cardiomyopathies; R00.0 Tachycardia, unspecified; Z95.810 Presence of automatic (implantable) cardiac defibrillator | CPT/HCPCS: 99212 ==

== ENCOUNTER → 2025-04-19 20:30 | Outpatient (REF) | payer OTHER, SELFPAY ==
--- OUTSIDE RECORDS SUMMARY | 2025-04-19 21:45 | XMS_ITS | Encounter Summary ---
Author Organization [employer] Address [address] [place] [address] Care Team Providers Care Load Manager Name Role Phone Farrah Jackson DO Primary Care Provider + [phone] Encounter Details Date Type Department Care Team (Late Contact Info) Description 01/15/2023 Orders Only [facility] MED & PEDS [address], [place] [phone] Farrah Baird LPN Social History Tobacco Use [...] as of this encounter Plan of Treatment Upcoming Encounters Date Type Department Care Team (Late st Contact Info) Description 05/08/2025 9:20 AM EDT Office Visit [facility] OPTOMETRY [address] [place] [address] documented as of this encounter Visit Diagnoses Not on filedocumented in this encounter Care Teams Load Manager Relationship Specialty Start Date End Date Farrah Jackson DO [address] [place] [address] PCP - General Family Medicine 10/25/18 documented as of this encounter
== END ==
LOC: HO.SL 20:30
PROVIDERS: PCP Family Medicine; Visit Provider Hospitalist
DX: G47.33 Obstructive sleep apnea (adult) (pediatric) (principal); I42.8 Other cardiomyopathies; Z95.810 Presence of automatic (implantable) cardiac defibrillator; R00.0 Tachycardia, unspecified
CPT/HCPCS: 95810

== ENCOUNTER → 2025-04-19 21:45 | Outpatient (BNV) | payer OTHER, SELFPAY | PROVIDERS: PCP Family Medicine; Visit Provider Internal Medicine | DX: G47.33 Obstructive sleep apnea (adult) (pediatric) (principal) | CPT/HCPCS: 95810 ==

== ENCOUNTER → 2025-04-24 23:59 | Outpatient (BNV) | payer OTHER, SELFPAY ==
--- NOTE | 2025-05-06 12:27 | A.OFFVIS_ITS ---
Intake Visit Reasons: Remote HF monitoring- [employer] Allergies oxycodone Adverse Reaction (Intermediate, Verified 03/27/25 13:14) vomiting, delusions PFSH Medical History Pacemaker Gout Cacdn-1-crenwiqmwyz deficiency Encounter for discussion regarding implantable cardioverter-defibrillator Cardiomyopathy COPD (chronic obstructive pulmonary disease) Essential hypertension PVC (premature ventricular contraction) MARVA (obstructive sleep apnea) Carcinoid tumor High cholesterol Prostate enlargement Diabetes Surgical History History of surgical procedure (~2022) History of prostate surgery Hx of colonoscopy History of bronchoscopy History of lobectomy of lung Family History Son No problems noted. Father No problems noted. 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 [id number] Cardiac Device Interrogation, pacemaker Procedure code (CPT) selection complete Assessment & Plan Assessment & Plan (1) S/P ICD (internal cardiac defibrillator) procedure: Code(s): Z95.810 - Presence of automatic (implantable) cardiac defibrillator Category: Surgical (2) NICM (nonischemic cardiomyopathy): Code(s): I42.8 - Other cardiomyopathies Category: Medical Plan x Coding Level of Care Code Procedure Only Diagnoses S/P ICD (internal cardiac defibrillator) procedure Z95.810 NICM (nonischemic cardiomyopathy) I42.8 CPT Codes Cardiac Device Check - Cardiac Device 12: [id number] Cardiac Device Interrogation, pacemaker ([id number])
== END ==
PROVIDERS: PCP Family Medicine; Visit Provider Internal Medicine
DX: I42.8 Other cardiomyopathies (principal); Z95.810 Presence of automatic (implantable) cardiac defibrillator
CPT/HCPCS: 93295

== ENCOUNTER → 2025-04-24 23:59 | Outpatient (BNV) | payer OTHER, SELFPAY ==
--- NOTE | 2025-05-06 12:25 | MHC.OFFVIS ---
Intake Visit Reasons: Remote HF monitoring- [employer] Allergies oxycodone Adverse Reaction (Intermediate, Verified 03/27/25 13:14) vomiting, delusions PFSH Medical History Pacemaker Gout Qgmfh-9-lfsecihjpwz deficiency Encounter for discussion regarding implantable cardioverter-defibrillator Cardiomyopathy COPD (chronic obstructive pulmonary disease) Essential hypertension PVC (premature ventricular contraction) MARVA (obstructive sleep apnea) Carcinoid tumor High cholesterol Prostate enlargement Diabetes Surgical History History of surgical procedure (~2022) History of prostate surgery Hx of colonoscopy History of bronchoscopy History of lobectomy of lung Family History Son No problems noted. Father No problems noted. 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 [id number] Cardiac Device Interrogation, cardio physiologic monitor Procedure code (CPT) selection complete Assessment & Plan Assessment & Plan (1) S/P ICD (internal cardiac defibrillator) procedure: Code(s): Z95.810 - Presence of automatic (implantable) cardiac defibrillator Category: Surgical (2) NICM (nonischemic cardiomyopathy): Code(s): I42.8 - Other cardiomyopathies Category: Medical Plan x Coding Level of Care Code Procedure Only Diagnoses S/P ICD (internal cardiac defibrillator) procedure Z95.810 NICM (nonischemic cardiomyopathy) I42.8 CPT Codes Cardiac Device Check - Cardiac Device 15: [id number] Cardiac Device Interrogation, cardio physiologic monitor ([id number])
== END ==
PROVIDERS: PCP Family Medicine; Visit Provider Internal Medicine
DX: I42.8 Other cardiomyopathies (principal); Z95.810 Presence of automatic (implantable) cardiac defibrillator
CPT/HCPCS: 93297

== ENCOUNTER 2025-05-07 14:12 | Outpatient (AMB) | payer OTHER, SELFPAY ==
[2025-05-07 15:12] VITALS: BP 110/60; PULSE 72; BMI 23.5
--- NOTE | 2025-05-07 15:12 | A.OFFVIS_ITS ---
Vital Signs 05/07/25 15:12 Height 5 ft 7 in Weight 150 lb BMI 23.5 BP 110/60 Blood Pressure Location Lt brachial Position Sitting Pulse 72 Pulse Source Pulse Oximeter Intake Visit Reasons: 6 mth f/up Allergies oxycodone Adverse Reaction (Intermediate, Verified 03/27/25 13:14) vomiting, delusions Medication List - Last Reconciled 05/07/25 by Tomer Carolina MD albuterol sulfate 90 mcg/actuation 2 puffs inhalation QID PRN 1 month atorvastatin (Lipitor) 80 mg PO DAILY budesonide-formoterol 160-4.5 mcg/actuation (Symbicort) 2 puffs inhalation BID carvedilol 18.75 mg PO BID dapagliflozin propanediol (Farxiga) 10 mg PO DAILY furosemide 20 mg PO DAILY 30 days hydrocodone-acetaminophen 5-325 mg 1 tab PO Q4-6H PRN meloxicam 7.5 mg PO DAILY metformin 1,000 mg PO BID multivitamin 1 tab PO DAILY sacubitril-valsartan 49-51 mg (Entresto) 1 tab PO BID sertraline 25 mg PO DAILY spironolactone 25 mg PO DAILY HPI Comments Details: Sonny returns for follow-up regarding nonischemic cardiomyopathy. Has a history of frequent PVCs. Multiple risk factors including diabetes, hypertension, dyslipidemia, but cardiac catheterization did not show any significant coronary disease. For the most part, he states he is feeling fine. Breathing is at baseline. He can do most of his daily activities without any symptoms. Otherwise, getting along okay. [facility] Medical History Pacemaker Gout Efbdf-5-rbrfkussvhl deficiency Encounter for discussion regarding implantable cardioverter-defibrillator Cardiomyopathy COPD (chronic obstructive pulmonary disease) Essential hypertension PVC (premature ventricular contraction) MARVA (obstructive sleep apnea) Carcinoid tumor High cholesterol Prostate enlargement Diabetes Surgical History History of surgical procedure (~2022) History of prostate surgery Hx of colonoscopy History of bronchoscopy History of lobectomy of lung Family History Son No problems noted. Father No problems noted. 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 Review of Systems Const Denies weakness ENT Denies dizziness Card Denies chest pain, Denies chest pain with activity, Denies syncope, Denies rapid heart rate, Denies pedal edema, Denies edema, Denies leg edema, Denies lightheadedness, Denies palpitations, Denies dyspnea, Denies dyspnea on exertion and Denies orthopnea Resp Denies cough, Denies dyspnea and Denies dyspnea on exertion GI Denies hematochezia and Denies change in stool character Musc Denies abnormal gait, Denies muscle cramps, Denies muscle weakness, Denies numbness, Denies radiating pain into limb and Denies tingling Neuro Denies abnormal gait, Denies dizziness, Denies syncope, Denies numbness, Denies tingling and Denies weakness Endo Denies palpitations Physical Exam Vital Signs: Last Vital Signs Pulse 72 05/07/25 15:12 BP 110/60 05/07/25 15:12 BMI result Body Mass Index 23.5 Const General: comfortable and no acute distress Orientation/consciousness: patient oriented x3 HEENT Other: Unremarkable Head: Yes normal to inspection Neck Neck: Yes normal visual inspection Chest Chest palpation & inspection: normal inspection of the chest Resp Auscultation: clear to auscultation bilaterally Cardio Palpation: normal PMI Heart sounds: S1 normal heart sound present, S2 normal heart sound present, no gallops, no murmurs and no rubs GI Palpation (GI): Soft to palpation Back/Spine/Pelvis Other: unremarkable Skin General skin exam: no rashes or lesions noted Neuro General: patient oriented x3 Extrem General: Yes normal to inspection Psych Mental Status: mental status grossly normal Office Procedures Cardiac Device Check Cardiac Device Check Details: ICD interrogated today. Battery status more than 7 years. Normal lead scott eters. No treated VT/VF. [id number] Cardiac Device Check, single lead implantable defibrillator Procedure code (CPT) selection complete Assessment & Plan Assessment & Plan (1) NICM (nonischemic cardiomyopathy): Code(s): I42.8 - Other cardiomyopathies Category: Medical Plan: In the echocardiogram, LVEF 20-25%. Similar to prior. Cardiac catheterization with mild luminal irregularities in the LAD but otherwise unremarkable coronaries. LVEDP was also normal. Could be either from hypertension or from alcoholic cardiomyopathy. However, no alcohol excess in the last few years. Continue Coreg/Entresto/spironolactone/Farxiga/diuretics. Check labs including cardiac BNP. If consistently elevated, we can potentially increase the diuretic dosing to Lasix 40 mg daily. (2) PVC (premature ventricular contraction): Code(s): I49.3 - Ventricular premature depolarization Category: Medical Plan: In the last Holter, PVC burden of 5.3%. Short runs noted. Nothing sustained. Already has ICD in place. (3) Essential hypertension: Code(s): I10 - Essential (primary) hypertension Category: Medical Plan: Stable. No changes. (4) Diabetes: Code(s): E11.9 - Type 2 diabetes mellitus without complications Category: Medical Plan: On metformin/Farxiga. Last hemoglobin A1c is 6.5%. Plan Discussion Notes I discussed with the patient the importance of monitoring his fluid status and weight closely, and the need to adjust his furosemide dosage based on his symptoms. We reviewed the signs of over-diuresis, such as excessive thirst, and the importance of avoiding the water pill in such cases. I have ordered blood work to further evaluate his condition and will adjust his treatment plan accordingly. Patient was informed and verbally consented to the use of an ambient scribe for clinic note documentation during this visit. Orders: Orders Basic Metabolic Panel Today I42.8 - Other cardiomyopathies, I50.9 - Heart failure, unspecified B Type Natriuretic Peptide Today I42.8 - Other cardiomyopathies, I50.9 - Heart failure, unspecified Patient Instructions: - Continue taking furosemide 20 mg daily, increase to 40 mg if needed for fluid retention. - Monitor weight and fluid status closely, report any significant changes. - Avoid taking the water pill if experiencing excessive thirst. - Complete blood work as ordered. - Follow up in six months. Coding Level of Care Code Est Pt Level 4 (78953) Complex EM visit Add On G2211 Diagnoses NICM (nonischemic cardiomyopathy) I42.8 PVC (premature ventricular contraction) I49.3 Essential hypertension I10 Diabetes E11.9 CPT Codes Cardiac Device Check - Cardiac Device 4: [id number] Cardiac Device Check, single lead implantable defibrillator ([id number])
--- OUTSIDE RECORDS SUMMARY | 2025-05-07 15:35 | XMS_ITS | Encounter Summary ---
Author Organization [employer] Address [address] [place] [address] Care Team Providers Care Spinning Operator Name Role Phone Farrah Jackson DO Primary Care Provider + [phone] Encounter Details Date Type Department Care Team (Late Contact Info) Description 01/15/2023 Orders Only [facility] MED & PEDS [address] [place], [place] [phone] Farrah Baird LPN Social History Tobacco Use [...] Description 05/08/2025 9:20 AM EDT Office Visit [facility] OPTOMETRY [address] [place] [address] documented as of this encounter Visit Diagnoses Not on filedocumented in this encounter Care Teams Spinning Operator Relationship Specialty Start Date End Date Farrah Jackson DO [address] [place] [address] PCP - General Family Medicine 10/25/18 documented as of this encounter
--- OUTSIDE RECORDS SUMMARY | 2025-05-07 15:35 | XMS_ITS | Clinical Summary ---
Author Organization [facility] Address [address] [place] [phone] Phone Care Team Providers Care Biological Science Technician Fish Name Role Phone Unavailable Primary Care Provider [...] 2023-2 5 season) 2024 Influenza Vaccine (#1) 2025 RSV Immunization Adult Patie nts (1 - 1-dose 75+ series) 2033 HIB [...] age to complete this topic Meningococcal B Vaccine Aged Out No l onger eligible based on patient's age to complete this topic RSV Immunization Patients Un chela 20 months Aged Out No longer eligible b ased on patient's age to complete this topic Varicella Vaccines Aged Out No longer eligible based on patient's age to complete this topic
== END 2025-05-07 15:34 | disposition home or self-care (01) ==
PROVIDERS: PCP Family Medicine; Visit Provider Internal Medicine
DX: I42.8 Other cardiomyopathies (principal); I49.3 Ventricular premature depolarization; I10 Essential (primary) hypertension; E11.9 Type 2 diabetes mellitus without complications
CPT/HCPCS: 93282; 99214; G2211

== ENCOUNTER → 2025-05-07 14:12 | Outpatient (BNVA) | payer OTHER, SELFPAY | PROVIDERS: PCP Family Medicine; Visit Provider Internal Medicine | DX: I49.3 Ventricular premature depolarization (principal); I42.8 Other cardiomyopathies; E11.9 Type 2 diabetes mellitus without complications; I10 Essential (primary) hypertension | CPT/HCPCS: 99212 ==

== ENCOUNTER → 2025-05-25 23:59 | Outpatient (BNV) | payer OTHER, SELFPAY ==
--- NOTE | 2025-06-03 13:48 | A.OFFVIS_ITS ---
Intake Visit Reasons: Remote HF monitoring- [employer] Allergies oxycodone Adverse Reaction (Intermediate, Verified 05/29/25 16:06) vomiting, delusions PFSH Medical History Pacemaker Gout [id number] deficiency Encounter for discussion regarding implantable cardioverter-defibrillator Cardiomyopathy COPD (chronic obstructive pulmonary disease) Essential hypertension PVC (premature ventricular contraction) MARVA (obstructive sleep apnea) Carcinoid tumor High cholesterol Prostate enlargement Diabetes Surgical History History of surgical procedure (~2022) History of prostate surgery Hx of colonoscopy History of bronchoscopy History of lobectomy of lung Family History Son No problems noted. Father No problems noted. 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 [id number] Cardiac Device Interrogation, cardio physiologic monitor Procedure code (CPT) selection complete Assessment & Plan Assessment & Plan (1) S/P ICD (internal cardiac defibrillator) procedure: Code(s): Z95.810 - Presence of automatic (implantable) cardiac defibrillator Category: Surgical (2) NICM (nonischemic cardiomyopathy): Code(s): I42.8 - Other cardiomyopathies Category: Medical (3) CHF (congestive heart failure): Code(s): I50.9 - Heart failure, unspecified Plan x Coding Level of Care Code Procedure Only Diagnoses S/P ICD (internal cardiac defibrillator) procedure Z95.810 NICM (nonischemic cardiomyopathy) I42.8 CHF (congestive heart failure) I50.9 CPT Codes Cardiac Device Check - Cardiac Device 15: [id number] Cardiac Device Interrogation, cardio physiologic monitor ([id number])
== END ==
PROVIDERS: PCP Family Medicine; Visit Provider Internal Medicine
DX: I42.8 Other cardiomyopathies (principal); Z95.810 Presence of automatic (implantable) cardiac defibrillator; I50.9 Heart failure, unspecified
CPT/HCPCS: 93297

== ENCOUNTER 2025-05-29 15:57 | Emergency (ER) | payer OTHER, SELFPAY ==
--- NOTE | ~2025-05-29 | CT_ITS ---
CLINICAL HISTORY: RLQ abd pain eval for appy --- Additional Notes or Special Instructions: oral contrast started at 2220. jat CT abdomen and pelvis with contrast Comparison: CT - CT ABDOMEN PELVIS W IV CON - 05/30/25 00:[address]/[place]/SR - CT ABDOMEN PELVIS WITH IV CONTRAST - 06/10/24 11:33 EDT Findings: There are small bilateral pleural effusions. There are 2 stable hemangiomas in the right lobe of the liver. There is cholelithiasis. The pancreas, spleen, adrenal glands, and kidneys are unremarkable. The appendix is normal. There is colonic diverticulosis. There is acute diverticulitis of the distal descending colon. There is no abscess or free air. The aorta is normal in diameter. There are no enlarged lymph nodes. The prostate is enlarged. Bladder is mildly distended. There is no fracture or suspicious lytic or sclerotic lesion. There is severe L5-S1 degenerative disc disease. IMPRESSION: 1. Acute uncomplicated diverticulitis of the distal descending colon. 2. Small bilateral pleural effusions. 3. Cholelithiasis. 4. Additional chronic findings as above. This document has been electronically signed by: Casey Vázquez MD on 05/30/2025 02:12:15
--- NOTE | ~2025-05-29 | XR_ITS ---
EXAMINATION: XR CHEST CLINICAL INFORMATION: sob COMPARISON: 06/17/2025 TECHNIQUE: 2 views of the chest were obtained. FINDINGS: Again seen is a single lead pacemaker terminating in the right ventricle. Cardiomegaly is again noted. There is a chronic bandlike density in the anterior left upper lung zone related to prominent mediastinal fat. There is mild chronic blunting of posterior costophrenic angles. XR/XR chest 2V IMPRESSION: No acute disease. Electronically signed by: Mike Jones MD 05/29/2025 04:23 PM EDT
[2025-05-29 15:59] VITALS: BP 132/75; PULSE 80; RESP 16; TEMP 36.8; O2SAT 97; BMI 22.0
--- NOTE | 2025-05-29 16:04 | ED.ABDPAIN ---
HPI - Abdominal Pain General Chief Complaint: Abdominal Pain Stated Complaint: Right lower abd pain/SOB Time Seen by Provider: 05/29/25 21:13 Source: patient Mode of arrival: ambulatory Limitations: no limitations History of Present Illness ED Provider: Dr. Deepa Noe HPI narrative: 64 year old male with history of nonischemic cardiomyopathy w/ EF 20-25%, DM2, MARVA, COPD, HTN presenting with right lower quadrant abdominal pain ongoing for the last 2 days or so. Describes a sharp burning pain that is constant for 2 days that began while he was sitting down watching television. Denies associated fever, nausea, vomiting, diarrhea, hematochezia or melena. No testicular pain or swelling. Does have a history of BPH which is being monitored by his primary care doctor. Denies chest pain or difficulty breathing. No history of abdominal surgeries but recently had part of his lung removed due to a tumor that was reportedly noncancerous. Related Data Home Medications ?Medication ?Instructions ?Recorded ?Confirmed atorvastatin 80 mg tablet (Lipitor) 80 mg PO DAILY 08/20/20 05/07/25 metformin 500 mg tablet 1,000 mg PO BID 08/20/20 05/07/25 carvedilol 12.5 mg tablet 18.75 mg PO BID 05/20/23 05/07/25 multivitamin 1 tab PO DAILY 05/20/23 05/07/25 sertraline 25 mg tablet 25 mg PO DAILY 05/20/23 05/07/25 Previous Rx's ?Medication ?Instructions ?Recorded budesonide-formoterol HFA 160 2 puff inhalation BID #10.2 grams 06/11/21 mcg-4.5 mcg/actuation aerosol inhaler (Symbicort) hydrocodone 5 mg-acetaminophen 325 1 tab PO Q4-6H PRN pain #30 tabs 05/25/23 mg tablet meloxicam 7.5 mg tablet 7.5 mg PO DAILY #14 tabs 05/24/24 spironolactone 25 mg tablet 25 mg PO DAILY #90 tabs 09/19/24 dapagliflozin propanediol 10 mg 10 mg PO DAILY #90 tabs 12/22/24 tablet (Farxiga) albuterol sulfate 90 mcg/actuation 2 puff inhalation QID PRN 01/03/25 aerosol inhaler shortness of breath or wheezing 1 month #8.5 grams furosemide 20 mg tablet 20 mg PO DAILY 30 days #30 tabs 03/27/25 sacubitril 49 mg-valsartan 51 mg 1 tab PO BID #180 tabs 04/05/25 tablet (Entresto) amoxicillin 875 mg-potassium 1 tab PO BID 10 days #20 tabs 05/30/25 clavulanate 125 mg tablet dicyclomine 20 mg tablet 20 mg PO TID #10 tabs 05/30/25 Allergies Allergy/AdvReac Type Severity Reaction Status Date / Time oxycodone AdvReac Intermediate vomiting, Verified 05/29/25 16:06 delusions Review of Systems Review of Systems as per HPI, full review of systems performed and negative but for the above mentioned pertinent positives and negatives. [facility] Past Medical History Attestation statement: The following information was validated with the patient. [facility] Narrative: Diabetes, cardiomyopathy with pacemaker placement, hypertension, COPD, sleep apnea, hyperlipidemia, nonsmoker, does not use alcohol Source: old records reviewed and nursing notes reviewed Medical History Pacemaker Gout [id number] deficiency Encounter for discussion regarding implantable cardioverter-defibrillator Cardiomyopathy COPD (chronic obstructive pulmonary disease) Essential hypertension PVC (premature ventricular contraction) MARVA (obstructive sleep apnea) Carcinoid tumor High cholesterol Prostate enlargement Diabetes Surgical History History of surgical procedure (~2022) History of prostate surgery Hx of colonoscopy History of bronchoscopy History of lobectomy of lung Family History Family History Son No problems noted. Father No problems noted. 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 SKIN: Normal skin color for ethnicity, warm, dry, no rashes noted. HEENT: Normocephalic, atraumatic, no stridor, posterior oropharynx nonerythematous, EOMI. NECK: Soft, supple, full ROM, midline structures nontender, no step-offs, no deformities, no lymphadenopathy. CHEST: Heart regular rate and rhythm, no murmurs, symmetric chest rise and fall. PULMONARY: Clear to auscultation bilaterally, no labored breathing, no wheezes/rhales/ rhonchi. ABDOMINAL: Soft, nondistended, right lower quadrant tenderness to palpation with voluntary guarding, no palpable masses, positive bowel sounds in all quadrants. : No inguinal hernias palpable with Valsalva, testicles are normal in lie, no pain with palpation, cremasteric reflex intact bilaterally. MUSCULOSKELETAL: Normal tone, full range of motion, no deformities, no peripheral edema. NEURO: Alert and oriented to person, CN II through XII intact, no focal neurologic deficits. PSYCHIATRIC: Flat affect, fluid speech, appropriate demeanor. Vital Signs: Vital Signs - 24 hr 05/29/25 15:59 05/29/25 21:03 05/29/25 22:25 Temperature 98.2 F Pulse Rate 80 80 85 Respiratory Rate 16 16 16 Blood Pressure 132/75 140/90 H 135/89 Pulse Oximetry 97 95 95 Oxygen Delivery Method Room Air Room Air Room Air 05/30/25 02:00 Temperature 98.4 F Pulse Rate 74 Respiratory Rate 16 Blood Pressure 113/73 Pulse Oximetry 94 Oxygen Delivery Method Room Air BMI result Body Mass Index 22.0 Course Course Course Narrative: This is a Rapid Medical Examination (RME) performed by Aye Barreto PA-C in triage. Full HPI, ROS, assessment and treatment plan per primary provider in the Main ED. 64 yo male iwth history of nonischemic cardiomyopathy w/ EF 20-25%, DM2, MARVA, COPD, HTN who presents to the ER for evaluation of constant lower abdominal pain for the last 3 days. no N/V/D, urinary symptoms. he has been SOB and dizzy as well. No chest pain. Last BM today and normal. on exam abd is soft with tenderness to deep palpation only of the RLQ. Plan: EKG, CXR, labs, UA, imaging per primary provicer Medical Decision Making Medical Decision Making MDM Narrative: This patient presents today with a chief complaint of abdominal pain. Differential diagnosis for this patient is broad. It includes appendicitis, diverticulitis, hernia, bowel obstruction, peptic ulcer disease, pyelonephritis, vascular pathology, among many others. A broad-based workup based on history and physical examination was obtained. Patient improved after Tylenol. CT shows evidence of diverticulitis. We will treat with Augmentin and outpatient follow-up. Discussed with patient at length. Discharged home in stable condition. Differential Diagnosis Differential Diagnoses: The differential diagnosis associated with the presentation includes (As above) Admission/Observation Consideration of admission/observation: Escalation of care including admission/observation considered Lab Data [facility] Lab Attestation statement: I reviewed the patient's lab results. Slight leukocytosis, no bandemia, slightly elevated T bili without elevation of transaminases, BNP is elevated, similar to previous emergency room visit in February of this year 05/29/25 16:29 05/29/25 16:29 Labs: Lab Results 05/29/25 05/29/25 Range/Units 16:29 21:04 WBC 11.9 H (4.8-10.8) X10*3/uL RBC 4.49 L (4.60-5.80) X10*6/uL Hgb 13.4 L (14.0-18.0) g/dl Hct 41.5 L (42.0-52.0) % MCV 92.4 (80.0-98.0) fL MCH 29.8 (27.0-33.0) pg MCHC 32.3 (31.0-36.0) g/dl RDW 16.4 H (11.0-16.0) % Plt Count 197 D (160-400) X10*3/uL MPV 10.4 (9.4-12.4) fL Immature Gran % (Auto) 0.3 (0.0-0.4) % Neut % (Auto) 77.4 H (45-73) % Lymph % (Auto) 12.2 L (20-40) % Curry % (Auto) 9.3 (2-11) % Eos % (Auto) 0.5 (0-4) % Baso % (Auto) 0.3 (0-2) % Lymph # (Auto) 1.5 (1.2-4.9) X10*3/uL Curry # (Auto) 1.1 (0.1-1.2) X10*3/uL Eos # (Auto) 0.1 (0.0-0.4) X10*3/uL Baso # (Auto) 0.0 (0.0-0.2) X10*3/uL Abs Immat Gran (auto) 0.04 H (0.00-0.03) X10*3/uL Absolute Neuts (auto) 9.2 H (2.0-8.3) x10*3/uL Absolute Nucleated RBC 0.000 (0.0-0.012) X10*3/uL Nucleated RBC % (auto) 0.0 (0.0-0.2) /100WBC Sodium 143 (135-145) mmol/L Potassium 4.0 (3.3-5.1) mmol/L Chloride 108 (96-108) mmol/L Carbon Dioxide 26 (22-29) mmol/L Anion Gap 13 (12-20) BUN 18 H (9-16) mg/dL Creatinine 0.75 (0.5-1.4) mg/dL Estim Creat Clear Calc 90.1 Estimated GFR > 60 Random Glucose 103 (60-115) mg/dL Calcium 9.3 (8.4-10.2) mg/dL Magnesium 1.7 (1.6-2.6) mg/dL Total Bilirubin 1.5 H (0.0-1.0) mg/dL Direct Bilirubin 0.5 (0.0-0.5) mg/dL AST 27 (5-37) U/L ALT 22 (0-40) U/L Alkaline Phosphatase 65 (39-117) U/L Troponin I High Sens 13.0 (<3.5-35.0) ng/L B-Natriuretic Peptide 2430 H (<100) pg/mL Total Protein 6.9 (6.5-8.0) g/dL Albumin 4.1 (3.5-5.0) g/dL Lipase 25 (8-78) U/L Urine Color Yellow Urine Appearance Clear Urine pH 5.5 (5.0-9.0) Ur Specific [place] >= 1.030 H (1.005-1.025) Urine Protein Trace (Neg-Trace) mg/dL Urine Glucose (UA) >=1000 H (Negative) mg/dL Urine Ketones 15 (Negative) mg/dL Urine Blood Negative (Negative) Urine Nitrite Negative (Negative) Ur Leukocyte Esterase Negative (Negative) Urine RBC 0-2 (0-2) /HPF Urine WBC 0-5 (0-5) /HPF Ur Squamous Epith Cells 0-2 (0-2) /HPF Urine Bacteria None Seen (None Seen) Hyaline Casts 0-2 (0-2) /LPF Influenza Type A (PCR) NEGATIVE (Negative) Influenza Type B (PCR) NEGATIVE (Negative) RSV RNA Qual (PCR) NEGATIVE (Negative) SARS-CoV-2 RNA (RT-PCR) NEGATIVE (Negative) Radiology Impression Discussion of test interpretation with radiology: I have reviewed the radiologist's reading. Radiologist Impression: XR CHEST CLINICAL INFORMATION: sob COMPARISON: 06/17/2025 TECHNIQUE: 2 views of the chest were obtained. FINDINGS: Again seen is a single lead pacemaker terminating in the right ventricle. Cardiomegaly is again noted. There is a chronic bandlike density in the anterior left upper lung zone related to prominent mediastinal fat. There is mild chronic blunting of posterior costophrenic angles. XR/XR chest 2V IMPRESSION: No acute disease. Electronically signed by: Mike Jones MD 05/29/2025 04:[address] abdomen and pelvis with contrast Comparison: CT - CT ABDOMEN PELVIS W IV CON - 05/30/25 00:[address]/UT/SR - CT ABDOMEN PELVIS WITH IV CONTRAST - 06/10/24 11:33 EDT Findings: There are small bilateral pleural effusions. There are 2 stable hemangiomas in the right lobe of the liver. There is cholelithiasis. The pancreas, spleen, adrenal glands, and kidneys are unremarkable. The appendix is normal. There is colonic diverticulosis. There is acute diverticulitis of the distal descending colon. There is no abscess or free air. The aorta is normal in diameter. There are no enlarged lymph nodes. The prostate is enlarged. Bladder is mildly distended. There is no fracture or suspicious lytic or sclerotic lesion. There is severe L5-S1 degenerative disc disease. IMPRESSION: 1. Acute uncomplicated diverticulitis of the distal descending colon. 2. Small bilateral pleural effusions. 3. Cholelithiasis. 4. Additional chronic findings as above. This document has been electronically signed by: Casey Vázquez MD on 05/30/2025 02:12:15 Independent Historian Clinical information obtained from an independent historian. History obtained from or confirmed by: Spouse External Record Review External record reviewed: Inpatient record and Outpatient record Chronic Conditions Patient?s care impacted by: Diabetes and Hypertension Medications Administered Discontinued Medications Generic Name Dose Route Start Last Admin Trade Name Freq PRN Reason Stop Dose Admin Diatrizoate Meglum/Diatrizoate Sod 30 ml 05/30/25 01:02 05/30/25 01:02 Diatrizoate Meglumine, Sodium 30 Ml Solution PO 05/30/25 01:03 30 ml ONCE ONE Administration Acetaminophen 1,000 mg in 100 mls @ 400 mls/hr 05/29/25 22:28 05/29/25 23:50 Ofirmev IV 05/29/25 22:42 Infused ONCE ONE Infusion Iohexol 85 ml 05/30/25 01:03 05/30/25 01:05 Iohexol 350 Mg/Ml 100 Ml Infus..Btl IV 05/30/25 01:04 85 ml ONCE ONE Administration Morphine Sulfate 4 mg 05/29/25 21:48 05/29/25 23:02 Morphine Sulfate 4 Mg/Ml Cartridge IVPUSH 05/29/25 21:49 Not Given ONCE ONE Protocol Ondansetron HCl 4 mg 05/29/25 21:48 05/29/25 23:03 Ondansetron Hcl 4 Mg/2 Ml Vial IVPUSH 05/29/25 21:49 Not Given ONCE ONE Discharge Plan Discharge Clinical Impression: Diverticulitis Patient Disposition: Home, Self-Care Instructions: Diverticulitis (ED) Additional Instructions: Take your antibiotic as prescribed until the course is completed. Do not stop this medication early if you start to feel better. Return to the ER with any new or worsening symptoms including: Worsening pain despite medications, fevers greater than 100?, inability to tolerate your antibiotic, any new symptom that concerns you. Call 911 with any medical emergency. Prescriptions: New dicyclomine 20 mg tablet 20 mg PO TID Qty: 10 0RF amoxicillin-pot clavulanate 875-125 mg tablet 1 tab PO BID 10 Days Qty: 20 0RF No Action budesonide-formoterol [Symbicort] 160-4.5 mcg/actuation HFA aerosol inhaler 2 puff inhalation BID Qty: 10.2 11RF spironolactone 25 mg tablet 25 mg PO DAILY Qty: 90 3RF Farxiga 10 mg tablet 10 mg PO DAILY Qty: 90 3RF furosemide 20 mg tablet 20 mg PO DAILY 30 Days Qty: 30 0RF Entresto 49-51 mg tablet 1 tab PO BID Qty: 180 3RF multivitamin Tablet 1 tab PO DAILY sertraline 25 mg Tablet 25 mg PO DAILY carvedilol 12.5 mg tablet 18.75 mg PO BID hydrocodone-acetaminophen 5-325 mg tablet 1 tab PO Q4-6H PRN (Reason: pain) Qty: 30 0RF Rx Instructions: Partial Fill upon patient request. meloxicam 7.5 mg tablet 7.5 mg PO DAILY Qty: 14 0RF albuterol sulfate 90 mcg/actuation HFA aerosol inhaler 2 puff inhalation QID PRN (Reason: shortness of breath or wheezing) 30 Days Qty: 8.5 0RF atorvastatin [Lipitor] 80 mg tablet 80 mg PO DAILY metformin 500 mg tablet 1,000 mg PO BID Print Language: [place]dean
--- NOTE | 2025-05-29 16:05 | ECG_ITS ---
Test Reason : SOB/DIZZY Blood Pressure : */* mmHG Vent. Rate : 75 BPM Atrial Rate : 75 BPM P-R Int : 132 ms QRS Dur : 86 ms QT Int : 408 ms P-R-T Axes : 59 -3 103 degrees QTcB Int : 455 ms Sinus rhythm with occasional Premature ventricular complexes Nonspecific ST and T wave abnormality Abnormal ECG When compared with ECG of 17-Mar-2025 10:27, No significant changes seen Referred By: Carissa Barreto Electronically Signed By: IMTIAZ BROWN
[2025-05-29 16:36] LABS: MANUAL DIFF FLAG NO
[2025-05-29 16:42] LABS: Hematocrit 41.5 % (42.0-52.0); Hemoglobin 13.4 g/dl (14.0-18.0); Imm Gran Abs Auto 0.04 X10*3/uL (0.00-0.03); Imm Gran Pct Auto 0.3 % (0.0-0.4); Lymphocytes Absolute Auto 1.5 X10*3/uL (1.2-4.9); Mean Corpuscular HGB Conc 32.3 g/dl (31.0-36.0); Mean Corpuscular Hemoglobin 29.8 pg (27.0-33.0); Mean Corpuscular Volume 92.4 fL (80.0-98.0); NRBC Abs Auto 0.000 X10*3/uL (0.0-0.012); NRBC Pct Auto 0.0 /100WBC (0.0-0.2); Platelet Count 197 X10*3/uL (160-400); Red Blood Count 4.49 X10*6/uL (4.60-5.80); White Blood Count 11.9 X10*3/uL (4.8-10.8)
[2025-05-29 16:52] LABS: Alanine Aminotransferase 22 U/L (0-40); Albumin Level 4.1 g/dL (3.5-5.0); Alkaline Phosphatase 65 U/L (39-117); Anion Gap 13 (12-20); Blood Urea Nitrogen 18 mg/dL (9-16); Calcium 9.3 mg/dL (8.4-10.2); Carbon Dioxide 26 mmol/L (22-29); Chloride 108 mmol/L (96-108); Creatinine Clr Calc Pharmacy 90.1; Estimated Glomerular Filt Rate > 60; Lipase 25 U/L (8-78); Magnesium 1.7 mg/dL (1.6-2.6); Potassium 4.0 mmol/L (3.3-5.1); Sodium 143 mmol/L (135-145); Total Protein 6.9 g/dL (6.5-8.0)
[2025-05-29 16:57] LABS: B Type Natriuretic Peptide 2430 pg/mL (<100)
[2025-05-29 16:58] LABS: Troponin-I High Sensitivity 13.0 ng/L (<3.5-35.0)
[2025-05-29 17:03] LABS: Aspartate Amino Transferase 27 U/L (5-37)
[2025-05-29 17:13] LABS: Resp Syncy Virus RNA Qual PCR NEGATIVE (Negative); SARS COV2 PCR INHOUSE NEGATIVE (Negative)
--- NOTE | 2025-05-29 20:52 | MHC.EDTECH ---
@20:52 urine cup given to the patient
[2025-05-29 21:03] VITALS: BP 140/90; PULSE 80; RESP 16; O2SAT 95
[2025-05-29 21:11] LABS: Appearance Urine Clear; Glucose Urine UA >=1000 mg/dL (Negative); PH 5.5 (5.0-9.0); Specific Gravity - Urine >= 1.030 (1.005-1.025); UMIC TRIGGER UACC YES
[2025-05-29 22:25] VITALS: BP 135/89; PULSE 85; RESP 16; O2SAT 95
[2025-05-30] MEDS: iohexoL 350 MG/ML 100 ML INFUS..BTL 85 ML IV (01:05)
[2025-05-30 02:00] VITALS: BP 113/73; PULSE 74; RESP 16; TEMP 36.9; O2SAT 94
[2025-05-30 02:47] VITALS: BP 113/73; PULSE 74; RESP 16; TEMP 36.9; O2SAT 94
== END 2025-05-30 02:48 | disposition home or self-care (01) ==
PROVIDERS: Physician Assistant; Emergency Provider Emergency Medicine; PCP Family Medicine
DX: K57.92 Diverticulitis of intestine, part unspecified, without perforation or abscess without bleeding (principal); R10.31 Right lower quadrant pain; G47.33 Obstructive sleep apnea (adult) (pediatric); E11.9 Type 2 diabetes mellitus without complications; J44.9 Chronic obstructive pulmonary disease, unspecified; I10 Essential (primary) hypertension; Z03.818 Encounter for observation for suspected exposure to other biological agents ruled out
CPT/HCPCS: 36415; 71046; 74177; 80048; 80076; 81001; 83690; 83735; 83880; 84484; 85025; 87637; 93005; 96365; 99284; J0131; Q9967

== ENCOUNTER → 2025-05-29 16:05 | Outpatient (BNV) | payer OTHER, SELFPAY | PROVIDERS: Emergency Provider Emergency Medicine; PCP Family Medicine; Visit Provider Internal Medicine | DX: R94.31 Abnormal electrocardiogram [ECG] [EKG] (principal); R06.02 Shortness of breath; R42 Dizziness and giddiness | CPT/HCPCS: 93010 ==

== ENCOUNTER → 2025-05-29 16:06 | Outpatient (BNV) | payer OTHER, SELFPAY | PROVIDERS: PCP Family Medicine; Visit Provider Radiology Diagnostic Radiology | DX: R06.02 Shortness of breath (principal) | CPT/HCPCS: 71046 ==

== ENCOUNTER → 2025-05-30 00:30 | Outpatient (BNV) | payer OTHER, SELFPAY | PROVIDERS: Emergency Provider Emergency Medicine; PCP Family Medicine; Visit Provider Radiology Diagnostic Radiology | DX: K57.32 Diverticulitis of large intestine without perforation or abscess without bleeding (principal); K80.20 Calculus of gallbladder without cholecystitis without obstruction | CPT/HCPCS: 74177 ==

== ENCOUNTER 2025-06-20 15:48 | Inpatient (IN) | payer OTHER, SELFPAY ==
--- NOTE | ~2025-06-20 | XR_ITS ---
CLINICAL HISTORY: sob --- Additional Notes or Special Instructions: with doctor-09:21pm Chest X-ray, 2 Views COMPARISON: CR/SR - XR CHEST 2 VIEWS - 05/29/25 16:16 EDT CR - XR CHEST 2V - 03/17/25 11:07 EDT CR/ME/SR - XR CHEST 2V - 12/19/22 11:51 EST FINDINGS: Mid to lower left lung atelectasis or infiltrate. Probable atelectasis in the right lower lung. Mild blunting of the bilateral costophrenic angles. No pneumothorax. Stable cardiomegaly. Left-sided AICD in place obscuring a portion of the study. No acute fracture. Degenerative changes in the spine. IMPRESSION: Left mid to lower lung atelectasis or infiltrate. Small bilateral pleural effusions. Nonemergent/incidental findings above. This document has been electronically signed by: Ventura Sánchez MD on 06/20/2025 22:42:21
[2025-06-20 16:08] VITALS: BP 118/84; PULSE 80; RESP 18; TEMP 36.7; O2SAT 94; BMI 23.5
--- NOTE | 2025-06-20 16:14 | ECG_ITS ---
Test Reason : CP Blood Pressure : */* mmHG Vent. Rate : 81 BPM Atrial Rate : 81 BPM P-R Int : 130 ms QRS Dur : 94 ms QT Int : 398 ms P-R-T Axes : 46 -4 75 degrees QTcB Int : 462 ms Normal sinus rhythm Nonspecific ST and T wave abnormality Borderline ECG When compared with ECG of 29-May-2025 16:17, Premature ventricular complexes are no longer Present Referred By: Noemy Arriaga Electronically Signed By: IMTIAZ BROWN
--- NOTE | 2025-06-20 16:54 | MHC.EDTECH ---
called pt back at 163 to obtain ekg, no answer from pt
[2025-06-20 16:58] VITALS: BP 125/91; PULSE 71; RESP 16; TEMP 36.9; O2SAT 98
[2025-06-20 18:46] LABS: MANUAL DIFF FLAG NO
[2025-06-20 18:48] LABS: Hematocrit 40.1 % (42.0-52.0); Hemoglobin 13.1 g/dl (14.0-18.0); Imm Gran Abs Auto 0.02 X10*3/uL (0.00-0.03); Imm Gran Pct Auto 0.2 % (0.0-0.4); Lymphocytes Absolute Auto 1.5 X10*3/uL (1.2-4.9); Mean Corpuscular HGB Conc 32.7 g/dl (31.0-36.0); Mean Corpuscular Hemoglobin 30.3 pg (27.0-33.0); Mean Corpuscular Volume 92.8 fL (80.0-98.0); NRBC Abs Auto 0.000 X10*3/uL (0.0-0.012); NRBC Pct Auto 0.0 /100WBC (0.0-0.2); Platelet Count 179 X10*3/uL (160-400); Red Blood Count 4.32 X10*6/uL (4.60-5.80); White Blood Count 8.4 X10*3/uL (4.8-10.8)
[2025-06-20 19:06] LABS: COVID-19 Test Negative (Negative); IDNOW Serial# 55D5AD1C
[2025-06-20 19:07] LABS: IDNOW Serial# 58CA691E; Influenza B2 Negative (Negative)
--- NOTE | 2025-06-20 19:08 | ED.URI ---
HPI - URI/Sore Throat General Chief Complaint: Upper Respiratory Symptoms Stated Complaint: shortness of breathe Time Seen by Provider: 06/20/25 21:27 Source: patient, family, old records reviewed and ibm bpm architect Mode of arrival: ambulatory Limitations: no limitations History of Present Illness ED Provider: DR. Luna HPI Narrative: This is a 64-year-old male, with a past medical history of type 2 diabetes, nonischemic cardiomyopathy EF 30%, COPD, s/p ICD presented with shortness of breath, nonproductive cough, no fever, no chills, patient is a nonsmoker. No lower extremity swelling or edema, no orthopnea, no PND. Related Data Home Medications ?Medication ?Instructions ?Recorded ?Confirmed atorvastatin 80 mg tablet (Lipitor) 80 mg PO DAILY 08/20/20 05/07/25 metformin 500 mg tablet 1,000 mg PO BID 08/20/20 05/07/25 carvedilol 12.5 mg tablet 18.75 mg PO BID 05/20/23 05/07/25 multivitamin 1 tab PO DAILY 05/20/23 05/07/25 sertraline 25 mg tablet 25 mg PO DAILY 05/20/23 05/07/25 Previous Rx's ?Medication ?Instructions ?Recorded budesonide-formoterol HFA 160 2 puff inhalation BID #10.2 grams 06/11/21 mcg-4.5 mcg/actuation aerosol inhaler (Symbicort) hydrocodone 5 mg-acetaminophen 325 1 tab PO Q4-6H PRN pain #30 tabs 05/25/23 mg tablet meloxicam 7.5 mg tablet 7.5 mg PO DAILY #14 tabs 05/24/24 spironolactone 25 mg tablet 25 mg PO DAILY #90 tabs 09/19/24 dapagliflozin propanediol 10 mg 10 mg PO DAILY #90 tabs 12/22/24 tablet (Farxiga) albuterol sulfate 90 mcg/actuation 2 puff inhalation QID PRN 01/03/25 aerosol inhaler shortness of breath or wheezing 1 month #8.5 grams furosemide 20 mg tablet 20 mg PO DAILY 30 days #30 tabs 03/27/25 sacubitril 49 mg-valsartan 51 mg 1 tab PO BID #180 tabs 04/05/25 tablet (Entresto) amoxicillin 875 mg-potassium 1 tab PO BID 10 days #20 tabs 05/30/25 clavulanate 125 mg tablet dicyclomine 20 mg tablet 20 mg PO TID #10 tabs 05/30/25 Allergies Allergy/AdvReac Type Severity Reaction Status Date / Time oxycodone AdvReac Intermediate vomiting, Verified 06/20/25 16:11 delusions Review of Systems Review of Systems: All other systems are reviewed and are negative Constitutional: Reports as per HPI and Reports no additional constitutional complaints Eyes: Reports as per HPI and Reports no additional eye complaints Reports system reviewed and no additional complaints, except as documented Cardiovascular: Reports as per HPI and Reports no additional cardiovascular complaints Respiratory: Reports as per HPI and Reports no additional respiratory complaints Gastrointestinal: Reports as per HPI and Reports no additional gastrointestinal complaints Genitourinary: Reports no additional female genitourinary complaints Musculoskeletal: Reports no additional musculoskeletal complaints Skin/Breast: Reports system reviewed and no additional complaints, except as docu Psychiatric: Reports no additional psychiatric complaints Endocrine: Reports no additional endocrine complaints Hematologic/Lymphatic: Reports no additional hematologic/lymphatic complaints Allergic/Immunologic: Reports no additional allergic/immunologic complaints Reports system reviewed and no additional complaints, except as documented and Reports Abnormal speech present [facility] Past Medical History Medical History Pacemaker Gout [id number] deficiency Encounter for discussion regarding implantable cardioverter-defibrillator Cardiomyopathy COPD (chronic obstructive pulmonary disease) Essential hypertension PVC (premature ventricular contraction) MARVA (obstructive sleep apnea) Carcinoid tumor High cholesterol Prostate enlargement Diabetes Surgical History History of surgical procedure (~2022) History of prostate surgery Hx of colonoscopy History of bronchoscopy History of lobectomy of lung Family History Family History Son No problems noted. Father No problems noted. 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 Blood pressure elevated. Heart rate normal. Respiratory rate normal. Temperature normal. Oxygen saturation normal. Appearance: Alert. Oriented X3. No acute distress. Head: Normal external exam. Normocephalic. Atraumatic. No Greenberg signs noted. No raccoon eyes noted Eyes: PERRLA. EOMI. Conjunctiva and sclera normal. Eyelids normal. ENT: TM's Normal. Pharynx normal. Uvula midline. Moist mucous membranes. No trismus noted. No drooling noted. No muffled voice noted. Neck: Normal inspection. Neck supple. FROM. No adenopathy. Thyroid Normal. No meningeal signs. No neck mass noted. CVS: Normal heart rate and rhythm. Heart sound normal. No murmurs noted. Pulses normal throughout. Respiratory: No respiratory distress. Painless inspiration. Breath sounds normal. No wheezes/rales/rhonchi noted. Chest nontender. No accessory muscle usage noted or decreased air movement noted. Abdomen: Soft and nontender. Bowel sounds normal in all 4 quadrants. No distention noted. No organomegaly noted. No visible injury noted. Back: No CVA tenderness. Full range of motion noted. Skin: Skin warm and dry. Normal skin color. Normal skin turgor. No rashes/lesions/lacerations noted. Extremities: No lower extremity edema. Extremities exhibit normal range of motion. Extremities nontender. Neuro: Oriented X 3. Cranial nerve exam: II-XII are grossly intact No motor deficit. No sensory deficit. Reflexes normal. Course Course Course Narrative: This is an RME: Additional HPI, ROS, PE not included below will be deferred to primary provider. RME assessment and note performed by: Noemy Arriaga PA-C This is a 64-year-old male, with a past medical history of type 2 diabetes, cardiomyopathy, COPD, who presents emergency department with complaints of shortness of breath, cough, nasal congestion started today. Vital signs within normal limits. Plan: Labs, x-ray, EKG, further ER evaluation needed. Reevaluation(s) Reevaluation #1: 64-year-old male history of CHF and exam is consistent with acute CHF exacerbation, start the patient on Lasix and nitro admit the patient for further diuresis. Time: 22:50 Medications Administered Discontinued Medications Generic Name Dose Route Start Last Admin Trade Name Freq PRN Reason Stop Dose Admin Furosemide 40 mg 06/20/25 22:16 06/20/25 22:39 Furosemide 40 Mg/4 Ml Vial IVPUSH 06/20/25 22:17 40 mg ONCE ONE Administration Protocol Medical Decision Making Differential Diagnosis Differential Diagnoses: The differential diagnosis associated with the presentation includes (COPD exacerbation, pneumonia, pneumothorax, pleural effusion, CHF exacerbation, ACS.) Admission/Observation Consideration of admission/observation: Escalation of care including admission/observation considered Consult Healthcare Provider Management of the patient was discussed with: Hospitalist (Dr. Amor) Lab Data MDM Lab Attestation statement: I reviewed the patient's lab results. 06/20/25 18:41 06/20/25 18:41 Labs: Lab Results 06/20/25 06/20/25 Range/Units 18:41 21:37 WBC 8.4 (4.8-10.8) X10*3/uL RBC 4.32 L (4.60-5.80) X10*6/uL Hgb 13.1 L (14.0-18.0) g/dl Hct 40.1 L (42.0-52.0) % MCV 92.8 (80.0-98.0) fL MCH 30.3 (27.0-33.0) pg MCHC 32.7 (31.0-36.0) g/dl RDW 17.5 H (11.0-16.0) % Plt Count 179 (160-400) X10*3/uL MPV 10.5 (9.4-12.4) fL Immature Gran % (Auto) 0.2 (0.0-0.4) % Neut % (Auto) 71.5 (45-73) % Lymph % (Auto) 17.6 L (20-40) % Major % (Auto) 9.4 (2-11) % Eos % (Auto) 0.8 (0-4) % Baso % (Auto) 0.5 (0-2) % Lymph # (Auto) 1.5 (1.2-4.9) X10*3/uL Major # (Auto) 0.8 (0.1-1.2) X10*3/uL Eos # (Auto) 0.1 (0.0-0.4) X10*3/uL Baso # (Auto) 0.0 (0.0-0.2) X10*3/uL Abs Immat Gran (auto) 0.02 (0.00-0.03) X10*3/uL Absolute Neuts (auto) 6.0 (2.0-8.3) x10*3/uL Absolute Nucleated RBC 0.000 (0.0-0.012) X10*3/uL Nucleated RBC % (auto) 0.0 (0.0-0.2) /100WBC Sodium 140 (135-145) mmol/L Potassium 5.1 D (3.3-5.1) mmol/L Chloride 111 H (96-108) mmol/L Carbon Dioxide 20 L (22-29) mmol/L Anion Gap 14 (12-20) BUN 18 H (9-16) mg/dL Creatinine 0.73 (0.5-1.4) mg/dL Estim Creat Clear Calc 93.0 Estimated GFR > 60 Random Glucose 119 H (60-115) mg/dL Calcium 9.0 (8.4-10.2) mg/dL Total Bilirubin 1.8 H (0.0-1.0) mg/dL AST 52 H (5-37) U/L ALT 41 H (0-40) U/L Alkaline Phosphatase 64 (39-117) U/L Troponin I High Sens 10.6 11.7 (<3.5-35.0) ng/L B-Natriuretic Peptide 3006 H (<100) pg/mL Total Protein 7.1 (6.5-8.0) g/dL Albumin 4.0 (3.5-5.0) g/dL COVID-19 (SKYLER) Negative (Negative) COVID-19 Clin Com See Note Influenza Type A (CLYDE) Negative (Negative) Influenza Type B (CLYDE) Negative (Negative) Influenza A & B Note See Note Independent Interpretation I performed an independent interpretation of an: Plain X-Ray (Chest:Mid to lower left lung atelectasis or infiltrate. Probable atelectasis in the right lower lung. Mild blunting of the bilateral costophrenic angles. No pneumothorax. Stable cardiomegaly. Left-sided AICD in place obscuring a portion of the study. No acute fracture. Degenerative changes in the ) Radiology Impression Discussion of test interpretation with radiology: I have reviewed the radiologist's reading. Chronic Conditions Patient?s care impacted by: Hypertension Critical Care Time Critical Care Time Critical Care Time: Yes Total Critical Care Time: 40 Attestation: The patient was critically ill with a high probability of imminent or life-threatening deterioration. I spent greater than 30 minutes of discontinuous time evaluating the patient, delivering critical care at the bedside, discussing evaluating data with consultants. Critical care time does not include time spent performing separately billable procedures or teaching. Time spent performing critical care was 40 minutes. Discharge Plan Discharge Clinical Impression: CHF exacerbation Patient Disposition: Admitted As Inpatient Print Language: Mauritian
[2025-06-20 19:19] LABS: Troponin-I High Sensitivity 10.6 ng/L (<3.5-35.0)
[2025-06-20 19:27] LABS: Alanine Aminotransferase 41 U/L (0-40); Albumin Level 4.0 g/dL (3.5-5.0); Alkaline Phosphatase 64 U/L (39-117); Anion Gap 14 (12-20); Aspartate Amino Transferase 52 U/L (5-37); Blood Urea Nitrogen 18 mg/dL (9-16); Calcium 9.0 mg/dL (8.4-10.2); Carbon Dioxide 20 mmol/L (22-29); Chloride 111 mmol/L (96-108); Creatinine Clr Calc Pharmacy 93.0; Estimated Glomerular Filt Rate > 60; Potassium 5.1 mmol/L (3.3-5.1); Sodium 140 mmol/L (135-145); Total Protein 7.1 g/dL (6.5-8.0)
--- OUTSIDE RECORDS SUMMARY | 2025-06-20 21:16 | XMS_ITS | Clinical Summary ---
Author Organization [facility] Address [address] [address] Phone Care Team Providers Care Cutter Barrel Drum Name Role Phone KrissyFarrah knight Primary Care Provider Allergies Active Allergy Reactions Criticality Noted Date Comments Metformin Other (See Comments) 04/10/2010 Dehydration Medications glipiZIDE (GLUCOTROL) 10 MG tablet Take 10 mg by mouth. Active lisinopril (PRINIVIL,ZESTRI L) 20 MG tablet Take 20 mg by mouth daily. Active amLODIPine (NORVASC) 5 MG tablet Take 5 mg by mouth daily. Active tamsulosin (FLOMAX) 0.4 mg Cap Take 0.4 mg by mouth daily. Active albuterol 90 mcg/actuation inhaler Inhale 2 puffs into the lungs every 4 (four) hours. 1 Inhaler 05/22/2019 Active Active Problems Problem Noted Date Diagnosed Date Lung cancer 01/24/2013 Overview (12/15/2014): CA - Lung cancer Immunizations Immunization Administration Dates Next Due Pneumococcal polysaccharide PPSV23 04/11/2010(De ruyd: Other) Social History Tobacco Use Types Packs/Day Years Used Date Smoking Tobacco: Former Smokeless Tobacco: Never Alcohol Use Standard Drinks/Week Comments Never 0 (1 standard drink = 0.6 oz pur e alcohol) Education Answer Date Recorded Are you interested in more education? Not on troy e 03/08/2023 Are you concerned about learning? Not on file 03/08/2023 No 03/08/2023 No 03/08/2023 Digital Access Answer Date Recorded No 03/21/2023 No 03/21/2023 No 03/21/2023 Reliable internet access at home? Not on file 03/21/2023 Device with a working camera? Not on file Sex and Gender Information Value Date Recorded Sex Assigned at Male 01/06/2019 10:57 AM EDT Legal Sex Male 6:47 PM EST Gender Identity Male 01/06/2019 10:57 AM EDT Sexual Orientation Straight 07/31/2019 10 :10 AM EDT Last Filed Vital Signs Vital Sign Reading Time Taken Comments Blood Pressure 142/84 12/08/2019 12:06 PM EST Pulse 78 12/08/2019 12:06 PM EST Temperature 36.8 C (98.2 F) 12/08/2019 12:06 PM EST Respiratory Rate 20 12/08/2019 12:06 PM EST Oxygen Saturation 97% 12/08/2019 12:06 PM EST Inhaled Oxygen Concentration - - Weight 81.6 kg (180 lb) 12/08/2019 8:49 AM EST Height 170.2 cm (5' 7 ) 12/08/2019 8:49 AM EST Body Mass Index 28.19 12/08/2019 8:49 AM EST Plan of Treatment Not on file Medical Devices Not on file Insurance GENERIC COMMERCIAL MD NGOZI [id number] GENERIC COMMERCIAL MD NGOZI [id number] GENERIC COMMERCIAL MD NGOZI [id number] GENERIC COMMERCIAL MD NGOZI [id number] GENERIC COMMERCIAL MD NGOZI [id number] GENERIC COMMERCIAL MD NGOZI [id number] GENERIC COMMERCIAL MD NGOZI [id number] GENERIC COMMERCIAL GENERIC COMMERCIAL Care Teams Cutter Barrel Drum Relationship Specialty Start Date End Date Farrah Jackson DO [address] [place] [address] PCP - General Family Medicine 01/06/19 Additional Source Comments The information contained in this document represents components of the legal health record. It is not the complete legal health record.[facility]
--- OUTSIDE RECORDS SUMMARY | 2025-06-20 21:16 | XMS_ITS | Clinical Summary ---
Author Organization [facility] Address [address] [place] [phone] Phone Care Team Providers Care Corporate Relations Manager Name Role Phone Unavailable Primary Care Provider [...] Vaccine ( - 2023-2 5 season) 2024 Depression Screening 10/25/2024 Influenza Vaccine (#1) 2025 RSV Immunization Adult [...]
--- OUTSIDE RECORDS SUMMARY | 2025-06-20 21:16 | XMS_ITS | Encounter Summary ---
Author Organization [employer] Address [address] [place] [address] Care Team Providers Care Drill Press Operator For Metal Name Role Phone Meagan Jacksonfer Primary Care Provider + [phone] Reason for Visit * Reason Comments Med Refill Encounter Details Date Type Department Care Team ([facility] Contact Info) Description 11/19/2023 Refill [facility] MEDICINE [address] [place], [place] [phone] Juana Wilson MD [address] [place], [place] [phone] Social History Tobacco Use Types Packs/Day Years [...] Care Team (Late st Contact Info) Description 09/10/2025 1:00 PM EST Office Visit [facility] OPTOMETRY [address] [place], [place] [phone] Marie Zhao, OD [address] [place] [address] documented as of this encounter Visit Diagnoses Not on filedocumented in this encounter Care Teams Drill Press Operator For Metal Relationship Specialty Start Date End Date Farrah Jackson DO [address] [place] [address] PCP - General Family Medicine 10/25/18 documented as of this encounter
--- OUTSIDE RECORDS SUMMARY | 2025-06-20 21:16 | XMS_ITS | Encounter Summary ---
Author Organization [employer] Address [address] [place] [address] Care Team Providers Care Jewelry Internship Name Role Phone Farrah Jackson DO Primary Care Provider + [phone] Reason for Visit * Reason Comments Med Refill Encounter Details Date Type Department Care Team ([facility] Contact Info) Description 11/14/2023 Refill [facility] MEDICINE [address] [place], [place] [phone] Farrah Jackson DO [address] [place], [place] [phone] Social History Tobacco Use Types Packs/Day Years [...] Description 09/10/2025 1:00 PM EST Office Visit [facility] OPTOMETRY [address] [place], [place] [phone] Marie Zhao, OD [address] [place] [address] documented as of this encounter Visit Diagnoses Not on filedocumented in this encounter Care Teams Jewelry Internship Relationship Specialty Start Date End Date Farrah Jackson DO [address] [place] [address] PCP - General Family Medicine 10/25/18 documented as of this encounter
--- OUTSIDE RECORDS SUMMARY | 2025-06-20 21:16 | XMS_ITS | Encounter Summary ---
Author Organization [facility] Address [address] [place] [address] Care Team Providers Care Audio Operator Name Role Phone Unavailable Primary Care Provider Unavailabl e Encounter Details Date Type Department Care Team (Late st Contact Info) Description 09/11/2024 Lab Requisition [facility] [address] [facility] [place] [address] Krishna Jose MD [address] [facility] [address] [place] [phone] Elevated prostate specific antigen (PSA) Social History [...] Acute inflammation present. 09/20/2024 4:27 PM EST [facility] Gross Description A. Urine, Voided, : [id number] Recd 1 TP CYTO 09/20/2024 4:27 PM EST [facility] Disclaimer Unless otherwise specified, all tissue is 10% NB formalin fixed and paraffin embedded. 09/20/2024 4:27 PM EST [facility] Tissue Urine specimen from urethra / Unknown 09/06/2024 09/11/2024 1:13 PM EST us Krishna Jose MD LAB PATHOLOGY ORDERABLES Final Result [facility] [address] [place] [address], documented in this encounter Visit Diagnoses Diagnosis Elevated prostate specific antigen (PSA) documented in this encounter
--- OUTSIDE RECORDS SUMMARY | 2025-06-20 21:16 | XMS_ITS | Encounter Summary ---
Author Organization [employer] Address [address] [place] [address] Care Team Providers Care Rim Roller Setter Name Role Phone Farrah Jackson DO Primary Care Provider + [phone] Reason for Visit * Reason Onset Date Comments pain medication to pharmacy 05/22/2024 Encounter Details Date Type Department Care Team ([facility] st Contact Info) Description 05/22/2024 Telephone [facility] [address] [place] [address] Farhad Knott, DMD [address] [place] [address] pain medication to pharmacy Social History Tobacco [...] documented in this encounter Plan of Treatment Upcoming Encounters Date Type Department Care Team (Late st Contact Info) Description 09/10/2025 1:00 PM EST Office Visit [facility] OPTOMETRY [address] [place] [address] Marie Zhao, OD [address] [place] [address] documented as of this encounter Visit Diagnoses Not on filedocumented in this encounter Additional Health Concerns Assessment Noted Time PHQ-9 Depression Total Score: 2 04/21/20 24 8:50 AM EDT documented as of this encounter Care Teams Rim Roller Setter Relationship Specialty Start Date End Date Farrah Jackson DO [address] [place] [phone] PCP - General Family Medicine 10/25/18 documented as of this encounter
--- OUTSIDE RECORDS SUMMARY | 2025-06-20 21:16 | XMS_ITS | Encounter Summary ---
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 Centerless Name Role Phone Meagan Jacksonfer Primary Care Provider + [phone] Encounter Details Date Type Department Care Team ([facility] Contact Info) Description 06/20/2025 Orders Only GENERIC EXTERNAL DATA DEPARTMENT Provider, Generic External Data Social History Tobacco Use Types Packs/Day Years Used Date Smoking Tobacco: Former Passive Smoke Exposure: Past Smokeless Tobacco: Never Alcohol Use Standard Drinks/Week Comments Never 0 (1 standard drink = 0.6 oz pur e alcohol) Depression Answer Date Recorded Patient Health Questionnaire-9 Score 1 06/08/2025 Patient Health Questionnaire-9 Score 1 06/08/2025 Last PHQ-9: Questionnaire Data Not on file 0 06/08/2025 Housing Stability Answer Date Recorded What is your housing situation today? I have ayden chaney 05/30/[address] you li ve. Do you have problems with any of the following? None of the above 05/30/2025 Food Insecurity Answer Date Recorded Within the past 12 months, y ou worried that your food would run out before you got money to buy more: Never True 05/30/2025 Within the past 12 months,th e food you bought just didn't last and you didn't have enough money to get more: Never True 03/2025 Transportation Answer Date Recorded In the past 12 months, has l ack of transportation kept you from medical appts, meetings, work or from getting things needed for daily living? No 05/30/2025 Utilities Answer Date Recorded In the past 12 months, has t he electric, gas, oil or water company threatened to shut off services in your home? No 05/30/2025 Depression Answer Date Recorded Patient Health Questionnaire-2 Score 0 06/08/2025 Internet Access Answer Date Recorded Internet Access Q1 Yes 05/30/2025 Internet Access Q2 Not on file 05/30/2025 Sex and Gender Information Value Date Recorded [...] Description 09/10/2025 1:00 PM EST Office Visit [facility] [address] [place], [place] [phone] TarMarie cesar, OD [address] [place] [address] documented as of this encounter Procedures Procedure Name Priority Date/Time Associated Diagnosis Comments INFLUENZA A B2 ID NOW ([facility]) Routine 06/20/2025 6:41 PM EDT COVID-19 ID NOW ([facility]) Routine 06/20/2025 6:41 PM EDT HIGH SENSITIVITY TROPONIN I Routine 06/20/2025 6:41 PM EDT CBC WITH AUTO DIFFERENTIAL Routine 06/20/2025 6:41 PM EDT COMPREHENSIVE METABOLIC PANEL Routine 06/20/2025 6:41 PM EDT documented in this encounter Results * (ABNORMAL) Comprehensive Metabolic Panel (06/20/2025 6:41 PM EDT) Sodium 140 135 - 145 mmol/L [facility] Potassium 5.1 3.3 - 5.1 mmol/L [facility] Comment:Mild Hemolysis.Inter pret result with caution Chloride 111(H) 96 - 108 mmol/L [facility] Carbon Dioxide 20(L) 22 - 29 mmol/L [facility] Anion Gap 14 12 - 20 [facility] Urea Nitrogen (BUN) 18(H) 9 - 16 mg/dL [facility] Creatinine, Serum 0.73 0.5 - 1.4 mg/dL [facility] Creatinine Clr Calc Pharmacy 93.0 [facility] Comment:eGFR (calculated fro m the MDRD study equation) and eCrCl(calculated from the Cockcroft-Gault equation) are based ondifferent parameters and may not yield comparable results.If eCrCl result is absurd, please check patient'sheight/weight. Estimated Glomerular Filt Rate >60 [facility] Comment:Chronic Kidney Disea se: Estimated GFR < 60 mL/min/1.65j4Enjhve Kidney Disease: Estimated GFR < 15 mL/min/1.73m2 Glucose 119(H) 60 - 115 mg/dL [facility] Calcium 9.0 8.4 - 10.2 mg/dL [facility] Bilirubin, Total 1.8(H) 0.0 - 1.0 mg/dL [facility] Aspartate Amino Transferase 52(H) 5 - 37 U/L [facility] Comment:Mild Hemolysis.Inter pret result with caution Alanine Aminotransferase 41(H) 0 - 40 U/L [facility] Total Protein 7.1 6.5 - 8.0 g/dL [facility] Comment:Mild Hemolysis.Inter pret result with caution Albumin Level 4.0 3.5 - 5.0 g/dL [facility] Alkaline Phosphatase 64 39 - 117 U/L [facility] 06/20/2025 6:41 PM EDT 06/20/2025 6:45 PM EDT us Generic External Data Provider LAB BLOOD ORDERAB LES Final Result [facility] [address] [place] [phone] * High Sensitivity Troponin I (06/20/2025 6:41 PM EDT) TROPONIN I HIGH SENSITIVITY 10.6 <3.5 - 35.0 ng/L [facility] Comment:The [place] high sens itivity Troponin-I results should beused in conjunction with other diagnostic information suchas ECG, clinical observations and information, and patientsymptoms to aid in the diagnosis of PR. 06/20/2025 6:41 PM EDT 06/20/2025 6:45 PM EDT Generic External Data Provider LAB BLOOD ORDERAB LES Final Result Performing Organization Address [facility]/ZIP Co de Phone Number [facility] [address] [place] [address] [phone] * Influenza A B2 ID NOW ([place]) (06/20/2025 6:41 PM EDT) IDNOW SERIAL# [id number] [facility] Influenza A Negative Negative [facility] Influenza B2 Negative Negative [facility] Influenza A B2 Note See Note [facility] Comment:The [place] ID NOW In fluenza A B2 test is used for thequalitative detection of influenza A and B from patientswith signs and symptoms of respiratory infection.Negative results do not preclude influenza virus infectionand should not be used as the sole basis for diagnosis,treatment or other patient management decisions.There is a risk of false negative results due to thepresence of variants in the viral targets of the assay, lowlevels of virus in the specimen and co- infection withRespiratory Syncytial Virus. 06/20/2025 6:41 PM EDT 06/20/2025 6:45 PM EDT us Generic External Data Provider LAB MICROBIOLOGY - GENERAL ORDERABLES Final Result Performing Organization Address [facility] Co de Phone Number [facility] [address] [place] [address] [phone] * COVID-19 ID NOW ([place]) (06/20/2025 6:41 PM EDT) IDNOW SERIAL# [id number] [facility] COVID-19 TEST Negative Negative [facility] COVID-19 NOTE See Note [facility] Comment: Results are for the identification of SARS-CoV2 RNA. TheSARS-CoV2 RNA is generally detectable in respiratory samplesduring the acute phase of infection. Positive results areindicative of the presence of SARS-CoV-2 RNA; clinicalcorrelation with patient history and other diagnosticinformation is necessary to determine patient infectionstatus. Positive results do not rule out bacterial infectionor co- infection with other viruses.Testing facilities within the [facility] and itsterritories are required to report all positive results tothe appropriate public health authorities.Negative results should be treated as presumptive and, ifinconsistent with clinical signs and symptoms or necessaryfor patient management, should be tested with differentauthorized or cleared molecular tests. Negative results donot preclude SARS-CoV2 RNA infection and should not be usedas the sole basis for patient management decisions. Negativeresults should be considered in the context of a patient'srecent exposures, history and the presence of clinical signsand symptoms consistent with COVID-19.This test has been authorized by the FDA under an EmergencyUse Authorization (EUA) for use by authorized laboratories.Testing performed on the [employer] ID NOW utilizing NAAT. 06/20/2025 6:41 PM EDT 06/20/2025 6:45 PM EDT us Generic External Data Provider LAB MOLECULAR RENETTA GNOSTICS ORDERABLES Final Result [facility] [address] [place] [address] [phone] * (ABNORMAL) CBC auto differential (06/20/2025 6:41 PM EDT) White Blood Count 8.4 4.8 - 10.8 X10*3/uL [facility] Red Blood Count 4.32(L) 4.60 - 5.80 X10*6/uL [facility] Hemoglobin 13.1(L) 14.0 - 18.0 g/dl [facility] Hematocrit 40.1(L) 42.0 - 52.0 % [facility] Mean Corpuscular Volume 92.8 80.0 - 98.0 fL [facility] Mean Corpuscular Hemoglobin 30.3 27.0 - 33.0 pg [facility] Mean Corpuscular HGB Conc 32.7 31.0 - 36.0 g/dl [facility] Red Cell Distribution Width 17.5(H) 11.0 - 16.0 % [facility] Platelet Count 179 160 - 400 X10*3/uL [facility] Mean Platelet Volume 10.5 9.4 - 12.4 fL [facility] Neutrophils Percent Auto 71.5 45 - 73 % [facility] Imm Gran Pct Auto 0.2 0.0 - 0.4 % [facility] Lymphocytes Percent Auto 17.6(L) 20 - 40 % [facility] Monocytes Percent Auto 9.4 2 - 11 % [facility] Eosinophils Percent Auto 0.8 0 - 4 % [facility] Basophils Percent Auto 0.5 0 - 2 % [facility] NRBC Pct Auto 0.0 0.0 - 0.2 /100WBC [facility] Neutrophils Absolute Auto 6.0 2.0 - 8.3 x10*3/uL [facility] Imm Gran Abs Auto 0.02 0.00 - 0.03 X10*3/uL [facility] Lymphocytes Absolute Auto 1.5 1.2 - 4.9 X10*3/uL [facility] Monocytes Absolute Auto 0.8 0.1 - 1.2 X10*3/uL [facility] Eosinophils Absolute Auto 0.1 0.0 - 0.4 X10*3/uL [facility] Basophils Absolute Auto 0.0 0.0 - 0.2 X10*3/uL [facility] NRBC Abs Auto 0.000 0.0 - 0.012 X10*3/uL [facility] 06/20/2025 6:41 PM EDT 06/20/2025 6:45 PM EDT us Generic External Data Provider LAB BLOOD ORDERAB LES Final Result [facility] [address] [place] [address] [phone] documented in this encounter Visit Diagnoses Not on filedocumented in this encounter Additional Health Concerns Assessment Noted Time PHQ-9 Depression Total Score: 1 06/08/20 25 12:18 PM EDT documented as of this encounter Care Teams Grinder Set Up Operator Centerless Relationship Specialty Start Date End Date Farrah Jackson DO [address] [place] [phone] PCP - General Family Medicine 10/25/18 documented as of this encounter
--- OUTSIDE RECORDS SUMMARY | 2025-06-20 21:16 | XMS_ITS | Clinical Summary ---
Author Organization [employer] Address [address] [facility] [address] [place] [address] Care Team Providers Care Manufacturing Coordinator Name Role Phone Farrah Jackson DO Primary Care Provider + [phone] Allergies Active Allergy Reactions Criticality Noted Date [...] BEDTIME 90 tablet 1 09/19/20 24 Active metFORMIN (Glucophage) 500 MG tablet TAKE 2 TABLETS BY MOUTH TWICE DAILY IN THE MORNING AND EVENING WITH MEALS 360 tablet 3 11/10/19 25 Active amoxicillin-clav ulanate (Augmentin) 875-125 MG tablet Take 1 tablet by mouth 2 times daily. 14 tablet 01/23/20 25 Active Spacer/Aero-Hold ing Chambers (OptiChamber Deedee) misc 1 each every 4 (four) hours if needed (asthma). 1 each 01/23/20 25 Active albuterol (Ventolin HFA) 108 (90 Base) MCG/ACT inhaler Inhale 2 puffs every 4 (four) hours if needed for wheezing. 54 g 1 01/23/20 25 026 Active FREESTYLE LITE test stripIndications :Type 2 diabetes mellitus with microalbuminuria , without long-term current use of insulin ([facility]) USE DIRECTED TO TEST BLOOD SUGAR TWICE DAILY 100 strip 8 02/02/20 25 Active atorvastatin (Lipitor) 80 MG tablet TAKE 1 TABLET BY MOUTH AT BEDTIME 90 tablet 1 03/08/20 25 Active sertraline (Zoloft) 25 MG tablet TAKE 1 TABLET BY MOUTH EVERY MORNING 30 tablet 2 05/01/20 25 Active gabapentin (Neurontin) 300 MG capsule TAKE 1 CAPSULE BY MOUTH AT BEDTIME 30 capsule 3 05/31/20 25 Active carvedilol (Coreg) 12.5 MG tabletIndication s:Primary hypertension TAKE 1 AND 1/2 TABLETS BY MOUTH TWICE DAILY IN THE MORNING AND IN THE EVENING WITH FOOD 90 tablet 1 05/31/20 25 Active gabapentin (Neurontin) 300 MG capsule TAKE 1 CAPSULE BY MOUTH AT BEDTIME 30 capsule 3 02/06/20 25 025 Discontinued carvedilol (Coreg) 12.5 MG tabletIndication s:Primary hypertension TAKE 1 AND 1/2 TABLETS BY MOUTH TWICE DAILY IN THE MORNING AND IN THE EVENING WITH FOOD 90 tablet 1 04/05/20 25 025 Discontinued Active Problems Problem Noted Date [...] Encounters Date Type Department Care Team Description 06/20/2025 Orders Only GENERIC EXTERNAL DATA DEPARTMENT Provider, Generic External Data 06/08/2025 11:30 AM EDT Office Visit [facility] [address] [place] [phone] Farrah Jackson DO Type 2 diabetes mellitus with microalbuminuria, without long-term current use of insulin ([facility]) 06/08/2025 Travel 06/07/2025 Telephone [facility] [address] [place] [address] Farrah Jackson DO chart prep 05/30/2025 Patient Outreach [facility] [address] [place] [address] Farrah Jackson DO Pre-visit Planning (SDOH screening negative and tobacco screening negative) 05/30/2025 Refill [facility] [address] [place] [address] Farrah Jackson DO Primary hypertension 05/29/2025 Orders Only [facility] External Provider, [facility] 05/25/2025 Telephone [facility] [address] [place] [address] Farrah Jackson, Appointment Request 05/25/2025 Travel 05/08/2025 9:20 AM EDT Office Visit [facility] [address] [place] [address] Lor Rich, OD Type 2 diabetes mellitus with diabetic microalbuminuria, without long-term current use of insulin ([facility]) (Primary Dx) 05/08/2025 Telephone [facility] [address] [place] [address] Farrah Jackson DO Med Refill 05/08/2025 Travel 04/29/2025 Refill [facility] [address] [place] [address] Farrah Jackson DO 04/05/2025 Refill [facility] [address] [place] [address] Farrah Jackson DO Primary hypertension 03/20/2025 Telephone [facility] [address] [place] [address] Farrah Jackson DO Care Coordination from Last 3 Months Immunizations Immunization Administration Dates Next Due Hep A, Adult [...] Sign Reading Time Taken Comments Blood Pressure 126/70 06/08/2025 11:22 AM EDT Pulse 75 06/08/2025 11:22 AM EDT Temperature 36.8 C (98.3 F) 06/08/2025 11:22 AM EDT Respiratory Rate 20 06/08/2025 11:22 AM EDT Oxygen Saturation 98% 06/08/2025 11:22 AM EDT Inhaled Oxygen Concentration - - Weight 67.1 kg (148 lb) 06/08/2025 11:22 AM EDT Height 170.2 cm (5' 7 ) 06/08/2025 11:22 AM EDT Body Mass Index 23.18 06/08/2025 11:22 AM EDT Plan of Treatment Upcoming Encounters Date Type Department Care Team (Late st Contact Info) Description 09/10/2025 1:00 PM EST Office Visit [facility] [address] [place] [address] Marie Zhao, OD [address] [place] [address] Health Maintenance Due Date Last Done Comments CT Colonography 1960 Colonoscopy 1960 Dental Oral Exam 1960 Dental Prophylaxis 1958 Dental X-Ray: Bitewings 1958 FIT 1958 FOBT 1958 Sigmoidoscopy 1958 Diabetes: Foot Exam 1968 Eye Exam 1968 Hepatitis A Vaccines (2 of 2 - Risk 2-dose series) 08/20/2006 02/18/2006 Dental X-Ray: Full Mouth 10/29/2013 10/28/2010 Hepatitis B Vaccines (3 of 3 - Risk 3-dose series) 09/14/2015 04/09/2015, 03/14/2015 RSV Patients and Patients Aged 60 years or older (1 - Risk 60-74 years 1-dose series) 2018 COVID-19 Vaccine ( season) 2024 04/21/2024, 08/05/2023, 09/29/2022, Additional history exists Diabetes: Urine Protein Screening 04/21/2025 04/21/2024, 02/10/2023, 01/02/2021 Lipid Panel 04/21/2025 04/21/2024, 01/23, 07/10/2022, Additional history exists Influenza Vaccine (#1) 2025 , 07/10/2022, 10/14/2021, Additional history exists Diabetes: Hemoglobin A1C 12/09/2025 025, 04/21/2024, 04/21/2024, Additional history exists SDOH Screening 05/30/2026 05/30/2025 Alcohol/Substance Use Screening 06/08/2026 06/08/2025 Depression Screening 06/08/2026 06/08/2025, 06/08/20 25 Tobacco Screening 06/08/2026 06/08/2025 Colorectal Cancer Screening 08/26/2026 FIT DNA/Cologuard 08/26/2026 [...] Procedure Name Priority Date/Time Associated Diagnosis Comments COMPREHENSIVE METABOLIC PANEL Routine 06/20/2025 6:41 PM EDT HIGH SENSITIVITY TROPONIN I Routine 06/20/2025 6:41 PM EDT COVID-19 ID NOW ([place]) Routine 06/20/2025 6:41 PM EDT CBC WITH AUTO DIFFERENTIAL Routine 06/20/2025 6:41 PM EDT INFLUENZA A B2 ID NOW ([place]) Routine 06/20/2025 6:41 PM EDT POCT GLYCATED HEMOGLOBIN, TOTAL Routine 06/08/2025 11:31 AM EDT Type 2 diabetes mellitus with microalbuminuria, without long-term current use of insulin ([facility]) POCT GLUCOSE Routine 06/08/2025 11:30 AM EDT Type 2 diabetes mellitus with microalbuminuria, without long-term current use of insulin ([facility]) CT ABDOMEN PELVIS W CONTRAST Routine 05/30/2025 2:12 AM EDT URINALYSIS, COMPLETE, WITH REFLEX TO CULTURE Routine 05/29/2025 9:04 PM EDT HIGH SENSITIVITY TROPONIN I Routine 05/29/2025 4:29 PM EDT B TYPE NATRIURETIC PEPTIDE (BNP) Routine 05/29/2025 4:29 PM EDT LIPASE Routine 05/29/2025 4:29 PM EDT MAGNESIUM Routine 05/29/2025 4:29 PM EDT BASIC METABOLIC PANEL Routine 05/29/2025 4:29 PM EDT HEPATIC FUNCTION PANEL Routine 4:29 PM EDT CBC WITH AUTO DIFFERENTIAL Routine 05/29/2025 4:29 PM EDT SARS COV2/INFLUENZA A/B AND RSV RNA QL NAAT Routine 05/29/2025 4:29 PM EDT XR CHEST 2 VIEWS Routine 05/29/2025 3:16 PM EDT ALBUMIN, RANDOM URINE W/CREATININE Routine 04/21/2024 10:01 AM EDT Type 2 diabetes mellitus with microalbuminuria, without long-term current use of insulin (CMS/HCC) Essential hypertension Other hyperlipidemia Fatty liver Anxiety Cardiomyopathy, unspecified type (CMS/HCC) Dysuria Elevated PSA Sleep disorder breathing Healthcare maintenance LIPID PANEL, STANDARD Routine 04/21/2024 10:01 AM EDT Type 2 diabetes mellitus with microalbuminuria, without long-term current use of insulin (CMS/HCC) Essential hypertension Other hyperlipidemia Fatty liver Anxiety Cardiomyopathy, unspecified type (CMS/HCC) Dysuria Elevated PSA Sleep disorder breathing Healthcare maintenance LAB COLOGUARD COLON CANCER SCREEN Routine 08/26/2023 12:36 PM EDT Healthcare maintenance HEPATITIS C AB W/RFL RNA, PCR W/RFL GENOTYPE,LIPA Routine 02/10/2023 12:11 PM EDT Type 2 diabetes mellitus with microalbuminuria, without long-term current use of insulin (CMS/HCC) PANORAMIC RADIOGRAPHIC IMAGE Routine 10/28/2010 12:00 AM EST from Last 3 Months or Most Recently Relevant to Health Maintenance Results * Influenza A B2 ID NOW ([place]) (06/20/2025 6:41 PM EDT) IDNOW SERIAL# [id number] [facility] Influenza A Negative Negative [facility] Influenza B2 Negative Negative [facility] Influenza A B2 Note See Note [facility] Comment:The [place] ID NOW In [...] LAB MICROBIOLOGY - GENERAL ORDERABLES Final Result [facility] [address] [place] [phone] * COVID-19 ID NOW ([place]) (06/20/2025 6:41 PM EDT) IDNOW SERIAL# [id number] [facility] COVID-19 TEST Negative Negative [facility] COVID-19 NOTE See Note [facility] Comment: Results are for the identification of SARS-CoV2 RNA. TheSARS-CoV2 RNA is generally detectable in respiratory samplesduring the acute phase of infection. Positive results areindicative of the presence of SARS-CoV-2 RNA; clinicalcorrelation with patient history and other diagnosticinformation is necessary to determine patient infectionstatus. Positive results do not rule out bacterial infectionor co- infection with other viruses.Testing facilities within the [facility] and itsterritories are required to report all [...] use by authorized laboratories.Testing performed on the [place] ID NOW utilizing NAAT. 06/20/2025 6:41 PM EDT 06/20/2025 6:45 PM EDT Generic External Data Provider LAB MOLECULAR RENETTA GNOSTICS ORDERABLES Final Result Performing Organization Address [facility] [facility] de Phone Number [facility] [address] [place] [phone] * High Sensitivity Troponin I (06/20/2025 6:41 PM EDT) Only the most recent of2 resultswithin the time period is included. [facility] TROPONIN I HIGH SENSITIVITY 10.6 <3.5 - 35.0 ng/L [facility] Comment:The [place] high sens itivity Troponin-I results should beused in conjunction with other diagnostic information suchas ECG, clinical observations and information, and patientsymptoms to aid in the diagnosis of [place]. 06/20/2025 6:41 PM EDT 06/20/2025 6:45 PM EDT Generic External Data Provider LAB BLOOD ORDERAB LES Final Result Performing Organization Address [facility] [facility] de Phone Number [facility] [address] [place] [phone] * (ABNORMAL) CBC auto differential (06/20/2025 6:41 PM EDT) Only the most recent of2 resultswithin the time period is included. Pathologist [facility] White Blood Count 8.4 4.8 - 10.8 X10*3/uL [facility] Red Blood Count 4.32(L) 4.60 - 5.80 X10*6/uL [facility] Hemoglobin 13.1(L) 14.0 - 18.0 g/dl [facility] Hematocrit 40.1(L) 42.0 - 52.0 % [facility] Mean Corpuscular Volume 92.8 80.0 - 98.0 fL [facility] Mean Corpuscular Hemoglobin 30.3 27.0 - 33.0 pg [facility] Mean Corpuscular HGB Conc 32.7 31.0 - 36.0 g/dl [facility] Red Cell Distribution Width 17.5(H) 11.0 - 16.0 % [facility] Platelet Count 179 160 - 400 X10*3/uL [facility] Mean Platelet Volume 10.5 9.4 - 12.4 fL [facility] Neutrophils Percent Auto 71.5 45 - 73 % [facility] Imm Gran Pct Auto 0.2 0.0 - 0.4 % [facility] Lymphocytes Percent Auto 17.6(L) 20 - 40 % [facility] Monocytes Percent Auto 9.4 2 - 11 % [facility] Eosinophils Percent Auto 0.8 0 - 4 % [facility] Basophils Percent Auto 0.5 0 - 2 % [facility] NRBC Pct Auto 0.0 0.0 - 0.2 /100WBC [facility] Neutrophils Absolute Auto 6.0 2.0 - 8.3 x10*3/uL [facility] Imm Gran Abs Auto 0.02 0.00 - 0.03 X10*3/uL [facility] Lymphocytes Absolute Auto 1.5 1.2 - 4.9 X10*3/uL [facility] Monocytes Absolute Auto 0.8 0.1 - 1.2 X10*3/uL [facility] Eosinophils Absolute Auto 0.1 0.0 - 0.4 X10*3/uL [facility] Basophils Absolute Auto 0.0 0.0 - 0.2 X10*3/uL [facility] NRBC Abs Auto 0.000 0.0 - 0.012 X10*3/uL [facility] 06/20/2025 6:41 PM EDT 06/20/2025 6:45 PM EDT us Generic External Data Provider LAB BLOOD ORDERAB LES Final Result [facility] [address] [place] [phone] * (ABNORMAL) Comprehensive Metabolic Panel (06/20/2025 6:41 PM EDT) Sodium 140 135 - 145 mmol/L [facility] Potassium 5.1 3.3 - 5.1 mmol/L [facility] Comment:Mild Hemolysis.Inter pret result with caution Chloride 111(H) 96 - 108 mmol/L [facility] Carbon Dioxide 20(L) 22 - 29 mmol/L [facility] Anion Gap 14 12 - 20 [facility] Urea Nitrogen (BUN) 18(H) 9 - 16 mg/dL [facility] Creatinine, Serum 0.73 0.5 - 1.4 mg/dL [facility] Creatinine Clr Calc Pharmacy 93.0 [facility] Comment:eGFR (calculated fro m the MDRD study equation) and eCrCl(calculated from the Cockcroft-Gault equation) are based ondifferent parameters and may not yield comparable results.If eCrCl result is absurd, please check patient'sheight/weight. Estimated Glomerular Filt Rate >60 [facility] Comment:Chronic Kidney Disea se: Estimated GFR < 60 mL/min/[id number] Kidney Disease: Estimated GFR < 15 mL/min/1.73m2 Glucose 119(H) 60 - 115 mg/dL [facility] Calcium 9.0 8.4 - 10.2 mg/dL [facility] Bilirubin, Total 1.8(H) 0.0 - 1.0 mg/dL [facility] Aspartate Amino Transferase 52(H) 5 - 37 U/L [facility] Comment:Mild Hemolysis.Inter pret result with caution Alanine Aminotransferase 41(H) 0 - 40 U/L [facility] Total Protein 7.1 6.5 - 8.0 g/dL [facility] Comment:Mild Hemolysis.Inter pret result with caution Albumin Level 4.0 3.5 - 5.0 g/dL [facility] Alkaline Phosphatase 64 39 - 117 U/L [facility] 06/20/2025 6:41 PM EDT 06/20/2025 6:45 PM EDT Generic External Data Provider LAB BLOOD ORDERAB LES Final Result [facility] [address] [place] [phone] * POCT HGB A1C (06/08/2025 11:31 AM EDT) Hemoglobin A1C 5.5 4.0 - 5.7 % QC Media Lot # [id number] Lot# Expiration Date Blood 06/08/2025 11:3 1 AM EDT Farrah Jackson DO POINT OF CARE TEST ENTER/NILESH T ORDERABLES Final Result * POCT Glucose (06/08/2025 11:30 AM EDT) Glucose Blood, POC 127 60 - 200 mg/dL QC Media Lot # [id number] Lot# Expiration Date [id number],[id number] Blood Capillary blood specimen / Unknown 06/08/2025 11:30 AM EDT Farrah Jackson DO POINT OF CARE TEST ENTER/NILESH T ORDERABLES Final Result * CT Abdomen Pelvis w/ Contrast (05/30/2025 2:12 AM EDT) Anatomical Region Laterality Modality Body, Pelvis, Abdomen Computed T omography 05/30/2025 2:12 AM EDT Narrative 05/30/2025 2:14 AM EDT [address] [address] [address] Scan Report Signed Patient: Sonny Curiel MR#: [id number] : 1960 Acct:[id number] Age/Sex: 64 / M ADM Date: 05/29/25 Loc: .ED Attending Dr: Ordering Physician: Deepa Noe DO Date of Service: 05/30/25 Procedure(s): CT abdomen pelvis w IV con Accession Number(s): [id number] cc: Deepa Noe DO; Farrah Jackson DO Report Number: [id number]: Total DLP = 467.00 mGy-cm CLINICAL HISTORY: RLQ abd pain eval for appy --- Additional Notes or Special Instructions: oral contrast started at 2220. jat CT abdomen and pelvis with contrast Comparison: CT - CT ABDOMEN PELVIS W IV CON - 05/30/25 00:[address]/OR/SR - CT ABDOMEN PELVIS WITH IV CONTRAST - 06/10/24 11:33 EDT Findings: There are small bilateral pleural effusions. There are 2 stable hemangiomas in the right lobe of the liver. There is cholelithiasis. The pancreas, spleen, adrenal glands, and kidneys are unremarkable. The appendix is normal. There is colonic diverticulosis. There is acute diverticulitis of the distal descending colon. There is no abscess or free air. The aorta is normal in diameter. There are no enlarged lymph nodes. The prostate is enlarged. Bladder is mildly distended. There is no fracture or suspicious lytic or sclerotic lesion. There is severe L5-S1 degenerative disc disease. IMPRESSION: 1. Acute uncomplicated diverticulitis of the distal descending colon. 2. Small bilateral pleural effusions. 3. Cholelithiasis. 4. Additional chronic findings as above. This document has been electronically signed by: Casey Vázquez MD on 05/30/2025 02:12:15 Dictated By: Casey Vázquez MD Signed By: <Electronically signed by Casey Vázquez MD in OV> 05/30/25212 DD/ 1 TD/TT: 05/30/25211 Stripper Preliminary: Procedure Note Donotuseinterpreter, Image - 05/30/[address] [address] [address] Scan Report Signed Patient: Emily Curiel#: [id number] : 9Acct:[id number] Age/Sex: 64 / MADM Date: 05/29/25 Loc: HO.ED Attending Dr: Ordering Physician: Deepa Noe DO Date of Service: 05/30/25 Procedure(s): CT abdomen pelvis w IV con Accession Number(s): [id number] cc: Deepa Noe DO; AnastacioingridantoniaFarrah Shah Report Number: [id number]: Total DLP = 467.00 mGy-cm CLINICAL HISTORY: RLQ abd pain eval for appy --- Additional Notes orSpecial Instructions: oral contrast started at 2220. jat CT abdomen and pelvis with contrast Comparison: CT - CT ABDOMEN PELVIS W IV CON - 05/30/25 00:[address]/OR/SR - CT ABDOMEN PELVIS WITH IV CONTRAST - 06/10/24 11:33 EDT Findings: There are small bilateral pleural effusions. There are 2 stable hemangiomas in the right lobe of the liver. There is cholelithiasis. The pancreas, spleen, adrenal glands, and kidneys are unremarkable. The appendix is normal. There is colonic diverticulosis. There is acute diverticulitis of the distal descending colon. There is no abscess or free air. The aorta is normal in diameter. There are no enlarged lymph nodes. The prostate is enlarged. Bladder is mildly distended. There is no fracture or suspicious lytic or sclerotic lesion. There is severe L5-S1 degenerative disc disease. IMPRESSION: 1. Acute uncomplicated diverticulitis of the distal descending colon. 2. Small bilateral pleural effusions. 3. Cholelithiasis. 4. Additional chronic findings as above. This document has been electronically signed by: Casey Vázquez MD on 05/30/2025 02:12:15 Dictated By: Casey Vázquez MD Signed By: <Electronically signed by Casey Vázquez MD in OV> 05/30/25212 DD/ 1 TD/TT: 05/30/25211 Stripper Preliminary: [facility] External Provider IMG CT PROCEDURES Final Result * (ABNORMAL) Urinalysis, Complete, with Reflex to Culture (05/29/2025 9:04 PM EDT) Color Urine Yellow [facility] Appearance Urine Clear [facility] PH 5.5 5.0 - 9.0 [facility] Glucose Urine UA >=1000(A) Negative mg/dL [facility] Urine Blood Negative Negative [facility] Specific [place] - Urine >=1.030(H) 1.005 - 1.025 [facility] Urine Protein Trace Neg-Trace mg/dL [facility] Urine Ketones 15 Negative mg/dL [facility] Nitrite Urine Negative Negative [facility] Leukocyte Esterase Urine Negative Negative [facility] RBC Urine 0-2 0 - 2 /HPF [facility] Urine WBC 0-5 0 - 5 /HPF [facility] Urine Squamous Epithelial Cell 0-2 0 - 2 /HPF [facility] Urine Bacteria None Seen None Seen [facility] Hyaline Casts, Urine 0-2 0 - 2 /LPF [facility] 05/29/2025 9:04 PM EDT 05/29/2025 9:07 PM EDT Narrative [facility] - 05/29/2025 9:37 PM EDT 2055Urine, Clean Catch us Generic External Data Provider LAB URINE ORDERAB LES Final Result [facility] [address] [place] [phone] * SARS-CoV-2 RNA, Influenza A/B, and RSV RNA, Ql NAAT (05/29/2025 4:29 PM EDT) Influenza A PCR NEGATIVE Negative [facility] Influenza B PCR NEGATIVE Negative [facility] Resp Syncy Virus RNA Qual PCR NEGATIVE Negative [facility] SARS COV2 PCR NEGATIVE Negative [facility] Comment:All test results mus t [...] use by authorized laboratories.Testing performed on the [employer] GeneXpert utilizingreal-time RT-PCR.All SARS CoV2 and positive influenza A/B results arereported to [facility]. 05/29/2025 4:29 PM EDT 05/29/2025 4:35 PM EDT Generic External Data Provider LAB MICROBIOLOGY - GENERAL ORDERABLES Final Result Performing Organization Address [facility] Co de Phone Number [facility] [address] [place] [phone] * (ABNORMAL) B Type Natriuretic Peptide (BNP) (05/29/2025 4:29 PM EDT) Pathologist [facility] B Type Natriuretic Peptide 2,430(H) <100 pg/mL [facility] 05/29/2025 4:29 PM EDT 05/29/2025 4:35 PM EDT [facility] External Data Provider LAB BLOOD ORDERAB LES Final Result Performing Organization Address [facility] de Phone Number [facility] [address] [place] [phone] * Magnesium (05/29/2025 4:29 PM EDT) Magnesium 1.7 1.6 - 2.6 mg/dL [facility] 05/29/2025 4:29 PM EDT 05/29/2025 4:35 PM EDT Generic External Data Provider LAB BLOOD ORDERAB LES Final Result Performing Organization Address [facility] de Phone Number [facility] [address] [place] [phone] * Lipase (05/29/2025 4:29 PM EDT) Lipase 25 8 - 78 U/L [facility] 05/29/2025 4:29 PM EDT 05/29/2025 4:35 PM EDT us Generic External Data Provider LAB BLOOD ORDERAB LES Final Result Performing Organization Address [facility]/ZIP Co de Phone Number [facility] [address] [place] [phone] * (ABNORMAL) Hepatic Function Panel (05/29/2025 4:29 PM EDT) Bilirubin, Total 1.5(H) 0.0 - 1.0 mg/dL [facility] Bilirubin, Direct 0.5 0.0 - 0.5 mg/dL [facility] Aspartate Amino Transferase 27 5 - 37 U/L [facility] Alanine Aminotransferase 22 0 - 40 U/L [facility] Total Protein 6.9 6.5 - 8.0 g/dL [facility] Albumin Level 4.1 3.5 - 5.0 g/dL [facility] Alkaline Phosphatase 65 39 - 117 U/L [facility] 05/29/2025 4:29 PM EDT 05/29/2025 4:35 PM EDT us Generic External Data Provider LAB BLOOD ORDERAB LES Final Result Performing Organization Address [facility] Co de Phone Number [facility] [address] [place] [phone] * (ABNORMAL) Basic Metabolic Panel (05/29/2025 4:29 PM EDT) Sodium 143 135 - 145 mmol/L [facility] Potassium 4.0 3.3 - 5.1 mmol/L [facility] Chloride 108 96 - 108 mmol/L [facility] Carbon Dioxide 26 22 - 29 mmol/L [facility] Anion Gap 13 12 - 20 [facility] Urea Nitrogen (BUN) 18(H) 9 - 16 mg/dL [facility] Creatinine, Serum 0.75 0.5 - 1.4 mg/dL [facility] Creatinine Clr Calc Pharmacy 90.1 [facility] Comment:eGFR (calculated fro m the MDRD study equation) and eCrCl(calculated from the Cockcroft-Gault equation) are based ondifferent parameters and may not yield comparable results.If eCrCl result is absurd, please check patient'sheight/weight. Estimated Glomerular Filt Rate >60 [facility] Comment:Chronic Kidney Disea se: Estimated GFR < 60 mL/min/1.94n2Lcgszr Kidney Disease: Estimated GFR < 15 mL/min/1.73m2 Glucose 103 60 - 115 mg/dL [facility] Calcium 9.3 8.4 - 10.2 mg/dL [facility] 05/29/2025 4:29 PM EDT 05/29/2025 4:35 PM EDT us Generic External Data Provider LAB BLOOD ORDERAB LES Final Result Performing Organization Address City/State/[facility] Co de Phone Number [facility] [address] [place] [phone] * XR Chest 2 Views (05/29/2025 3:16 PM EDT) Anatomical Region Laterality Modality Chest Radiographic Dasia ging 05/29/2025 3:16 PM EDT Narrative 05/29/2025 4:26 PM EDT [address] [address] XRay Report Signed Patient: Sonny Curiel MR#: [id number] : 1960 Acct:[id number] Age/Sex: 64 / M ADM Date: 05/29/25 Loc: HO.ED Attending Dr: Ordering Physician: Carissa Barreto Date of Service: 05/29/25 Procedure(s): XR chest 2V Accession Number(s): [id number] cc: Farrah Jackson DO; Carissa Barreto EXAMINATION: XR CHEST CLINICAL INFORMATION: sob COMPARISON: 06/17/2025 TECHNIQUE: 2 views of the chest were obtained. FINDINGS: Again seen is a single lead pacemaker terminating in the right ventricle. Cardiomegaly is again noted. There is a chronic bandlike density in the anterior left upper lung zone related to prominent mediastinal fat. There is mild chronic blunting of posterior costophrenic angles. XR/XR chest 2V IMPRESSION: No acute disease. Electronically signed by: Mike Jones MD 05/29/2025 04:23 PM EDT RP Dictated By: Mike Jones MD Signed By: <Electronically signed by Mike Jones MD in OV> 05/29/25 1623 DD/ 1516 TD/TT: 05/29/25 1614 Stripper Preliminary: Procedure Note Donotuseinterpreter, Image - 05/29/2025 [place] [address] XRay Report Signed Patient: Emily Curiel#: [id number] : 9Acct:[id number] Age/Sex: 64 / MADM Date: 05/29/25 Loc: .ED Attending Dr: Ordering Physician: Carissa Barreto Date of Service: 05/29/25 Procedure(s): XR chest 2V Accession Number(s): [id number] cc: Farrah Jackson DO; Carissa Barreto EXAMINATION: XR CHEST CLINICAL INFORMATION: sob COMPARISON: 06/17/2025 TECHNIQUE: 2 views of the chest were obtained. FINDINGS: Again seen is a single lead pacemaker terminating in the right ventricle. Cardiomegaly is again noted. There is a chronic bandlike density in the anterior left upper lung zone related to prominent mediastinal fat. There is mild chronic blunting of posterior costophrenic angles. XR/XR chest 2V IMPRESSION: No acute disease. Electronically signed by: Mike Jones MD 05/29/2025 04:23 PM EDT RP Dictated By: Mike Jones MD Signed By: <Electronically signed by Mike Jones MD in OV> 05/29/25 1623 DD/ 1516 TD/TT: 05/29/25 1614 Stripper Preliminary: [facility] External Provider IMG XR PROCEDURES Edited Result - Final * (ABNORMAL) Albumin, Random Urine W/Creatinine (04/21/2024 10:01 AM EDT) Creatinine, Urine 80.22 mg/dL [facility] Microalbumin Urine 34.0 mg/L [facility] Microalbum Creatinine Ratio Ur 42.3(H) <30 ug/mg cr [facility] Comment:Albumin/Creatinine R atio Reference Ranges: Normal: < 30 ug/mg creatinine Microalbuminuria: 30 - 300 ug/mg creatinineClinical Albuminuria: > 300 ug/mg creatinine Urine (Urine, Random) 04/21/2024 10:01 AM EDT 04/21/2024 11:10 AM EDT Farrah Jackson DO LAB URINE ORDERABLES Final R esult [facility] [address] [place] [phone] * (ABNORMAL) Lipid Panel, Standard (04/21/2024 10:01 AM EDT) Triglycerides 98 <150 mg/dL [facility] Comment:Desirable Triglyceri de: less than 150 mg/dLBorderline High Triglyceride 150-199 mg/dLHigh Triglyceride: 200-499 mg/dLVery High Triglyceride: greater than or equal to 5OO mg/dL Cholesterol 96 <200 mg/dL [facility] Comment:Desirable Cholestero l: less than 200 mg/dLBorderline High Cholesterol: 200-239 mg/dLHigh Cholesterol: greater than 239 mg/dL LDL Cholesterol Calculated 43 <100 mg/dL [facility] Comment:Desirable LDL: less than 100 mg/dLNear Optimal/Above Optimal LDL: 110- 129 mg/dLBorderline High LDL: 130-159 mg/dLHigh LDL: 160-189 mg/dLVery High LDL: greater than or equal to 190 mg/dL HDL Cholesterol 34(L) >40 mg/dL [facility] Comment:Desirable HDL: great er than 40 mg/dL Note: This HDL assay may give artificially low results in patients with liver disease. Blood Venous blood specimen / Unknown 04/21/2024 10:01 AM EDT 04/21/2024 11:11 AM EDT us Farrah Jackson DO LAB BLOOD ORDERABLES Final R esult [facility] [address] [place] [phone] * Cologuard?? colon cancer screening (08/26/2023 12:36 PM EDT) Cologuard Result Negative Negative 09/02/20 23 1:54 AM JUNTA.CL (CLIA #:[id number]) Comment: NEGATIVE TEST RESULT. A negative Cologuard result indicates a low likelihood that a colorectal cancer (CRC) or advanced adenoma (adenomatous polyps with more advanced pre-malignant features) is present. The chance that a person with a negative Cologuard test has a colorectal cancer is less than 1 in 1500 (negative predictive value >99.9%) or has an advanced adenoma is less than 5.3% (negative predictive value 94.7%). These data are based on a prospective cross-sectional study of 10,000 individuals at average risk for colorectal cancer who were screened with both Cologuard and colonoscopy. (Liang Champion al, N Engl J Med 2014;370(14):4277-1009) The normal value (reference range) for this assay is negative. COLOGUARD RE-SCREENING RECOMMENDATION: Periodic colorectal cancer screening is an important part of preventive healthcare for asymptomatic individuals at average risk for colorectal cancer. Following a negative Cologuard result, the English Cancer Society and U.S. Multi-Society Task Force screening guidelines recommend a Cologuard re-screening interval of 3 years. References: English Cancer Society Guideline for Colorectal Cancer Screening: https://www.cancer.org/cancer/ggloe-mxoyyw-howwaj/suxeolfhw-pngxmirex-mpwhiui/ac s-rec ommendations.html.; Matty YOUNG, Krys HALL, Shelton CoreaK, Colorectal Cancer Screening: Recommendations for Physicians and Patients from the U.S. Multi-Society Task Force on Colorectal Cancer Screening , Am J Gastroenterology 2017; 112:1315-6058. TEST DESCRIPTION: Composite algorithmic analysis of stool DNA-biomarkers with hemoglobin immunoassay. Quantitative values of individual biomarkers are not [...] Toussaint et al, N Engl J Med 2014;370(14):4135-5859.) Cologuard may produce a false negative or false positive result (no colorectal cancer or precancerous polyp present at colonoscopy follow up). A negative Cologuard test result does not guarantee the absence of CRC or advanced adenoma (pre-cancer). The current Cologuard screening interval is every 3 years. (English Cancer Society and U.S. Multi-Society Task Force). Cologuard performance data in a 10,000 patient pivotal study using colonoscopy as the reference method can be accessed at the following location: www.[employer]icare.Boosted Boards/results. Additional description of the Cologuard test process, warnings and precautions can be found at www.[employer].Boosted Boards. Stool specimen (specimen) 08/26/2023 12:36 PM EDT 08/27/2023 6:19 PM EDT Farrah Jackson DO LAB MOLECULAR DIAGNOSTICS OR DERABLES Final Result [facility] (CLIA #:[id number]) [place] [address], * Hepatitis C Antibody with Reflex to HCV RNA,PCR w/Reflex to Genotype, LiPA (02/10/2023 12:11 PM EDT) Hepatitis C Antibody NON-REACT EYAD NON-REACT EYAD [facility] Index 0.08 <1.00 [facility] Comment: HCV antibody was non-reactive. There is no laboratory evidence of HCV infection. In most cases, no further action is required. However, if recent HCV exposure is suspected, a test for HCV RNA (test code 41151) is suggested. For additional information, please refer to http://education.Tagorize/faq/VAF340 (This link is being provided for informational/ educational purposes only.) 02/10/2023 12:1 1 PM EDT 02/10/2023 12:13 PM EDT Narrative [facility] - 02/11/2023 7:21 PM EDT FASTING:NO FASTING: NO Farrah Jackson DO LAB BLOOD ORDERABLES Final R esult Performing Organization Address City/[facility]/ZIP Co de Phone Number [facility] [address], [place] [address] [facility] [address] [place] [phone] from Last 3 Months or Most Recently Relevant to Health Maintenance Insurance [facility] LONGTERM OPTIONS (HMO D-SNP) DENTAL - [facility] Care Teams Manufacturing Coordinator Relationship Specialty Start Date End Date Farrah Jackson DO [address] [facility] [place] [address] PCP - General Family Medicine 10/25/18
--- OUTSIDE RECORDS SUMMARY | 2025-06-20 21:16 | XMS_ITS | Encounter Summary ---
Author Organization [employer] Address [address] [place] [address] Care Team Providers Care Recreation Attendant Supervisor Name Role Phone Meagan Jacksonfer Primary Care Provider + [phone] Reason for Visit * Reason Comments Med Refill Encounter Details Date Type Department Care Team ([facility] Contact Info) Description 01/11/2025 Refill [facility] [address] [place], [place] [phone] Alexsandra Luevano MD [address] [place], [place] [phone] Primary hypertension Social History Tobacco Use Types [...] Description 09/10/2025 1:00 PM EST Office Visit [facility] [address] [place] [address] Marie Zhao, OD [address] [place] [address] documented as of this encounter Visit Diagnoses Diagnosis Primary hypertension Unspecified essential hypertension documented in this encounter Additional Health Concerns Assessment Noted Time PHQ-9 Depression Total Score: 2 04/21/20 24 8:50 AM EDT documented as of this encounter Care Teams Recreation Attendant Supervisor Relationship Specialty Start Date End Date Farrah Jackson DO [address] [place] [phone] PCP - General Family Medicine 10/25/18 documented as of this encounter
--- OUTSIDE RECORDS SUMMARY | 2025-06-20 21:16 | XMS_ITS | Encounter Summary ---
Author Organization [employer] Address [address] [facility] 7[address] [place] [address] Care Team Providers Care Hammer Adjuster Name Role Phone Farrah Jackson DO Primary Care Provider + [phone] Reason for Visit * Reason Onset Date Comments Nurse Triage 12/28/2023 Encounter Details Date Type Department Care Team ([facility] st Contact Info) Description 12/28/2023 Telephone [facility] [address] [place], [place] [phone] Farrah Jackson DO [address] [place], [place] [phone] Nurse Triage Social History Tobacco Use Types [...] for UTI. Pt is advised to come [facility] for provider to see Pt. Pt insurance is not active at this time and Pt is waiting for medicare to start. Advised to stop at assistant front end manager to speak about insurance before going to [facility] . Pt agreed with disposition and advised [...] accepted this outcome Please contact pt at [phone] documented in this encounter Plan of Treatment Upcoming Encounters Date Type Department Care Team ([facility] Contact Info) Description 09/10/2025 1:00 PM EST Office Visit [facility] [address] [place], [place] [phone] Marie Zhao, ANGIE [address] [place] [address] documented as of this encounter Visit Diagnoses Not on filedocumented in this encounter Care Teams Hammer Adjuster Relationship Specialty Start Date End Date Farrah Jackson DO [address] [place] [phone] PCP - General Family Medicine 10/25/18 documented as of this encounter
--- OUTSIDE RECORDS SUMMARY | 2025-06-20 21:16 | XMS_ITS | Encounter Summary ---
Author Organization [employer] Address [address] [place] [address] Care Team Providers Care Barrel Finisher Name Role Phone Farrah Jackson DO Primary Care Provider + [phone] Encounter Details Date Type Department Care Team (Late Contact Info) Description 01/15/2023 Orders Only [facility] [address] [place], [place] [phone] Farrah Baird LPN Social History Tobacco Use [...] Description 09/10/2025 1:00 PM EST Office Visit [facility] [address] [place] [address] Marie Zhao, OD [address] [place] [address] documented as of this encounter Visit Diagnoses Not on filedocumented in this encounter Care Teams Barrel Finisher Relationship Specialty Start Date End Date Farrah Jackson DO [address] [place] [phone] PCP - General Family Medicine 10/25/18 documented as of this encounter
--- OUTSIDE RECORDS SUMMARY | 2025-06-20 21:16 | XMS_ITS | Encounter Summary ---
Author Organization [employer] Address [address] [facility] [place] [address] Care Team Providers Care Coffee Roaster Name Role Phone Farrah Jackson DO Primary Care Provider + [phone] Reason for Visit * Reason Comments Med Refill Encounter Details Date Type Department Care Team ([facility] Contact Info) Description 07/10/2024 Refill [facility] [address] [place], [place] [phone] Farrah Jackson DO [address] [place], [place] [phone] Social History Tobacco Use Types Packs/Day Years [...] Office Visit [facility] OPTOM[facility]RY [address] [place] [address] Marie Zhao, OD [address] [place] [address] documented as of this encounter Visit Diagnoses Not on filedocumented in this encounter Additional Health Concerns Assessment Noted Time PHQ-9 Depression Total Score: 2 04/21/20 24 8:50 AM EDT documented as of this encounter Care Teams Coffee Roaster Relationship Specialty Start Date End Date Farrah Jackson DO [address] [place] [phone] PCP - General Family Medicine 10/25/18 documented as of this encounter
[2025-06-20 21:43] VITALS: BP 136/96; PULSE 82; RESP 12; TEMP 36; O2SAT 98
[2025-06-20 22:02] LABS: B Type Natriuretic Peptide 3006 pg/mL (<100); Troponin-I High Sensitivity 11.7 ng/L (<3.5-35.0)
[2025-06-20 22:34] VITALS: BP 132/98; PULSE 84; RESP 16; TEMP 36.4; O2SAT 97
[2025-06-20 22:39] VITALS: BP 132/98
[2025-06-20] MEDS: Furosemide 40 MG/4 ML VIAL IVPUSH (22:39)
[2025-06-20] MEDS: Nitroglycerin 2 % Oint 1 GM Packet 0.5 INCH TRANSDERMA (22:46)
[2025-06-20] MEDS: 0.9 % Sodium Chloride Flush 3 ML SYRINGE IVFLUSH (23:49)
[2025-06-20 23:50] VITALS: O2SAT 96
--- NOTE | 2025-06-21 01:50 | PM.IMHP ---
History of Present Illness Date of Service: 06/20/25 Chief Complaint: sob 64-year-old male with a past medical history of HTN, HLD, COPD, CHF with EF of 35%, AICD; BPH, MARVA, diabetes, gout presented to the hospital today with a chief complaint of shortness of breath. Patient reports over the past 3 days he has been having shortness of breath especially on exertion. Denies any orthopnea or PND. Denies any weight gain. Reports he has been compliant with his home medications. Denies any chest pain or palpitations. Review of all other systems is negative except mentioned above ER course: Per ER team, patient presentation noted to be short of breath but saturating well on room air. Chest x-ray showed costophrenic blunting; proBNP elevated to 3000. Given Lasix. [facility] Medical History Pacemaker Gout [id number] deficiency Encounter for discussion regarding implantable cardioverter-defibrillator Cardiomyopathy COPD (chronic obstructive pulmonary disease) Essential hypertension PVC (premature ventricular contraction) MARVA (obstructive sleep apnea) Carcinoid tumor High cholesterol Prostate enlargement Diabetes Family History Son No problems noted. Father No problems noted. 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 Enoxaparin Sodium (Enoxaparin Sodium 40 Mg/0.4 Ml Syringe) 40 mg SUBCUT Q24H [facility] Last Admin: 06/20/25 23:48 Dose: 40 mg Furosemide (Furosemide 40 Mg/4 Ml Vial) 40 mg IVPUSH DAILY [facility]; Protocol Glucose (Glucose Gel 15 Gm Gel..Gram.) 15 gm PO Q15M PRN; Protocol PRN Reason: per Hypoglycemia Standing Ord. Insulin Human Lispro (Insulin Lispro 100 Unit/Ml 3 Ml Vial) 0 unit SUBCUT QIDACHS [facility]; Protocol Magnesium Hydroxide (Milk Of Magnesia 30 Ml Oral.Susp) 30 ml PO DAILY PRN PRN Reason: Constipation Melatonin (Melatonin 3 Mg Tablet) 6 mg PO BEDTIME PRN PRN Reason: Insomnia Sodium Chloride (0.9 % Sodium Chloride Flush 3 Ml Syringe) 3 ml IVFLUSH QSHIFT [facility] Last Admin: 06/20/25 23:49 Dose: 3 ml Home Medications ?Medication ?Instructions ?Recorded ?Confirmed ?Last Taken ?Type atorvastatin 80 mg tablet (Lipitor) 80 mg PO BEDTIME 08/20/20 06/21/25 06/20/25 History metformin 500 mg tablet 1,000 mg PO BID 08/20/20 06/21/25 06/20/25 History carvedilol 12.5 mg tablet 18.75 mg PO BID 05/20/23 06/21/25 06/20/25 History sertraline 25 mg tablet 25 mg PO DAILY 05/20/23 06/21/25 06/20/25 History aspirin 81 mg tablet,delayed 81 mg PO DAILY 06/21/25 06/21/25 06/20/25 History release clotrimazole 1 % topical cream 1 appl topical BID 06/21/25 06/21/25 06/20/25 History cyclobenzaprine 10 mg tablet 10 mg PO Q8H PRN Muscle Spasm 06/21/25 06/21/25 06/20/25 History dapagliflozin propanediol 10 mg 10 mg PO DAILY 06/21/25 06/21/25 06/20/25 History tablet (Farxiga) gabapentin 300 mg capsule 300 mg PO BEDTIME 06/21/25 06/21/25 06/20/25 History sacubitril 49 mg-valsartan 51 mg 1 tab PO BID 06/21/25 06/21/25 06/20/25 History tablet (Entresto) tamsulosin 0.4 mg capsule 0.4 mg PO BEDTIME 06/21/25 06/21/25 06/20/25 History Physical Exam Vital Signs and Narrative: Vital Signs: Last Vital Signs Temp 97.6 F 06/20/25 22:34 Pulse 84 06/20/25 22:34 Resp 16 06/20/25 22:34 BP 132/98 H 06/20/25 22:39 Pulse Ox 96 06/20/25 23:50 O2 Del Method Room Air 06/20/25 23:50 BMI result Body Mass Index 23.5 Gen: Appears be in no acute distress HEENT: NCAT, Moist mucosa. Pulmonary: Fine crackles present CVS: Normal S1-S2 Abdomen: BS+, Soft, Nontender Extremities: Warm well perfused Neuro: Alert and awake. Results Labs 06/20/25 18:41 06/20/25 18:41 Labs: Laboratory Results - last 24 hr 06/20/25 06/20/25 18:41 21:37 MCV 92.8 MCH 30.3 MCHC 32.7 RDW 17.5 H Plt Count 179 MPV 10.5 Immature Gran % (Auto) 0.2 Neut % (Auto) 71.5 Lymph % (Auto) 17.6 L [place] % (Auto) 9.4 Eos % (Auto) 0.8 Baso % (Auto) 0.5 Lymph # (Auto) 1.5 [place] # (Auto) 0.8 Eos # (Auto) 0.1 Baso # (Auto) 0.0 Abs Immat Gran (auto) 0.02 Absolute Neuts (auto) 6.0 Absolute Nucleated RBC 0.000 Nucleated RBC % (auto) 0.0 Anion Gap 14 Estim Creat Clear Calc 93.0 Estimated GFR > 60 Random Glucose 119 H Calcium 9.0 Total Bilirubin 1.8 H AST 52 H ALT 41 H Alkaline Phosphatase 64 B-Natriuretic Peptide 3006 H Total Protein 7.1 Albumin 4.0 COVID-19 (SKYLER) Negative COVID-19 Clin Com See Note Influenza Type A (CLYDE) Negative Influenza Type B (CLYDE) Negative Influenza A & B Note See Note Assessment and Plan (1) Acute on chronic combined systolic and diastolic ACC/AHA stage C congestive heart failure: Status: Acute Plan 64-year-old male with a past medical history of HTN, HLD, COPD, CHF with EF of 35%, AICD; BPH, MARVA, diabetes, gout presented to the hospital today with a chief complaint of shortness of breath. Noted to be in acute on chronic HFrEF Acute on chronic HFrEF: Continue Lasix IV daily Daily weights and I's and O's Telemetry Cardiology consult Diabetes: Insulin sliding scale Hypertension: Blood pressure normal side. Hold home antihypertensives in order to provide room for blood pressure for diuresis. Med reconciliation: Resume home medications once med rec is done. DVT prophylaxis: Lovenox Code status: Full code Quality Stroke Does the patient have a stroke diagnosis?: No VTE Prior VTE?: No VTE Risk Level:: Medical - moderate - high VTE Device Contraindication: Treatment Not Indicated VTE Drug Contraindication: N/A - Med Ordered
[2025-06-21 07:09] LABS: Glucose, Whole Blood 88 mg/dL (60-115)
[2025-06-21] MEDS: 0.9 % Sodium Chloride Flush 3 ML SYRINGE IVFLUSH (08:00)
[2025-06-21 08:01] VITALS: BP 137/92; PULSE 90; RESP 18; O2SAT 94
[2025-06-21] MEDS: Furosemide 40 MG/4 ML VIAL IVPUSH (08:01)
[2025-06-21 08:02] VITALS: BP 137/92; PULSE 91; RESP 21; TEMP 36.8; O2SAT 97
--- NOTE | 2025-06-21 09:37 | PHA.MEDREC ---
Addendum entered by Cesario Duong, PharmD 06/21/25 11:42: med rec checked by [facility] Original Note: Pharmacy Consult ? Medication Reconciliation Pharmacy has completed the medication reconciliation. Patient is a poor historian. Patient states he is no longer taking Budesobide-formoterol inhaler, Meloxicam 7.5 mg and Multivitamin. Utilize list from [facility] to confirm med list.
--- NOTE | 2025-06-21 10:04 | PM.CNCAR ---
History of Present Illness History of Present Illness Date of Service: 06/21/25 Chief complaint: CHF Narrative: This is a cardiology consultation regarding congestive heart failure. To recall, he has a history of nonischemic cardiomyopathy/frequent PVCs. Multiple cardiovascular risk factors including diabetes, hypertension, dyslipidemia but in the past, cardiac catheterization did not reveal any significant CAD. Last month, he was seen in the clinic and he was doing okay. He was doing most of his daily activities without any symptoms. He also has an ICD in place and there was functioning normally. In a prior echocardiogram, EF was 20-25%. Overall, he was on optimal medical therapy and getting along. He states that for the last few days he has not been doing good. He has been getting short of breath with activity. Review of Systems Review of Systems: Yes all other systems are reviewed and are negative Constitutional: Constitutional: Reports as per HPI and Reports no additional constitutional complaints Eyes: Eyes: Reports as per HPI and Denies no additional eye complaints ENT: Denies system reviewed and no additional complaints, except as documented and Reports as per HPI Cardiovascular: Cardiovascular: Reports as per HPI, Reports no additional cardiovascular complaints, Denies acrocyanosis, Denies cool extremities, Denies chest pain, Denies leg edema, Denies lightheadedness, Denies palpitations and Reports dyspnea Respiratory: Respiratory: Reports as per HPI, Denies no additional respiratory complaints and Reports dyspnea Gastrointestinal: Gastrointestinal: Reports as per HPI and Denies no additional gastrointestinal complaints Genitourinary: Genitourinary: Reports no additional male genitourinary complaints and Reports as per HPI Musculoskeletal: Musculoskeletal: Reports no additional musculoskeletal complaints and Reports as per HPI Integumentary/Breasts: Skin/Breast: Reports system reviewed and no additional complaints, except as docu Neurologic: Reports system reviewed and no additional complaints, except as documented and Reports as per HPI Psychiatric: Psychiatric: Reports no additional psychiatric complaints and Reports as per HPI Endocrine: Endocrine: Reports no additional endocrine complaints, Reports as per HPI and Denies palpitations Hematologic/Lymphatic: Hematologic/Lymphatic: Reports no additional hematologic/lymphatic complaints and Reports as per HPI Allergic/Immunologic: Allergic/Immunologic: Reports no additional allergic/immunologic complaints and Reports as per HPI PMFSH Past Medical History Medical History Pacemaker Gout [id number] deficiency Encounter for discussion regarding implantable cardioverter-defibrillator Cardiomyopathy COPD (chronic obstructive pulmonary disease) Essential hypertension PVC (premature ventricular contraction) MARVA (obstructive sleep apnea) Carcinoid tumor High cholesterol Prostate enlargement Diabetes Family History Family History Son No problems noted. Father No problems noted. Surgical History Surgical History History of surgical procedure (~2022) History of prostate surgery Hx of colonoscopy History of bronchoscopy History of lobectomy of lung Social History Social History Household Members: Spouse Household Members Other:: Alexsandra Housing: House Are you a primary health care legal assistant to a significant other at home: No Do you presently have visiting nurse or other home services: No Alcohol intake: never Patient Tobacco Use Status: Never used Tobacco Smoked in Last 30 Days: No Second Hand Smoke Exposure: No Use of substances other than those prescribed or required for medical reasons: No Advance Directives: No Advance Directives Information Provided: Yes Do you have a plan to hurt others: No Plan Nutrition Risks: No Nutritional Risk service: No Current occupational status: retired 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 Enoxaparin Sodium (Enoxaparin Sodium 40 Mg/0.4 Ml Syringe) 40 mg SUBCUT Q24H TE Last Admin: 06/20/25 23:48 Dose: 40 mg Furosemide (Furosemide 40 Mg/4 Ml Vial) 40 mg IVPUSH DAILY TE; Protocol Last Admin: 06/21/25 08:01 Dose: 40 mg Glucose (Glucose Gel 15 Gm Gel..Gram.) 15 gm PO Q15M PRN; Protocol PRN Reason: per Hypoglycemia Standing Ord. Insulin Human Lispro (Insulin Lispro 100 Unit/Ml 3 Ml Vial) 0 unit SUBCUT QIDACHS [facility]; Protocol Last Admin: 06/21/25 07:05 Dose: Not Given Magnesium Hydroxide (Milk Of Magnesia 30 Ml Oral.Susp) 30 ml PO DAILY PRN PRN Reason: Constipation Melatonin (Melatonin 3 Mg Tablet) 6 mg PO BEDTIME PRN PRN Reason: Insomnia Sodium Chloride (0.9 % Sodium Chloride Flush 3 Ml Sy[facility]) [facility] Admin: 06/21/25 08:00 Dose: 3 ml Home Medications ?Medication ?Instructions ?Recorded ?Confirmed ?Last Taken ?Type atorvastatin 80 mg tablet (Lipitor) 80 mg PO BEDTIME 08/20/20 06/21/25 06/20/25 History metformin 500 mg tablet 1,000 mg PO BID 08/20/20 06/21/25 06/20/25 History carvedilol 12.5 mg tablet 18.75 mg PO BID 05/20/23 06/21/25 06/20/25 History sertraline 25 mg tablet 25 mg PO DAILY 05/20/23 06/21/25 06/20/25 History aspirin 81 mg tablet,delayed 81 mg PO DAILY 06/21/25 06/21/25 06/20/25 History release clotrimazole 1 % topical cream 1 appl topical BID 06/21/25 06/21/25 06/20/25 History cyclobenzaprine 10 mg tablet 10 mg PO Q8H PRN Muscle Spasm 06/21/25 06/21/25 06/20/25 History dapagliflozin propanediol 10 mg 10 mg PO DAILY 06/21/25 06/21/25 06/20/25 History tablet (Farxiga) gabapentin 300 mg capsule 300 mg PO BEDTIME 06/21/25 06/21/25 06/20/25 History sacubitril 49 mg-valsartan 51 mg 1 tab PO BID 06/21/25 06/21/25 06/20/25 History tablet (Entresto) tamsulosin 0.4 mg capsule 0.4 mg PO BEDTIME 06/21/25 06/21/25 06/20/25 History Physical Exam Vital Signs: Vital Signs: Last Vital Signs Temp 98.2 F 06/21/25 08:02 Pulse 91 06/21/25 08:02 Resp 21 H 06/21/25 08:02 BP 137/92 H 06/21/25 08:02 Pulse Ox 97 06/21/25 08:02 O2 Del Method Room Air 06/21/25 08:02 BMI result Body Mass Index 23.5 Const: General: comfortable and no acute distress Orientation/consciousness: patient oriented x3 HEENT: Other: Unremarkable Head: Yes normal to inspection Neck: Neck: Yes normal visual inspection Chest: Chest palpation & inspection: normal inspection of the chest Resp: Other: Few basal crackles Cardio: Palpation: normal PMI Heart sounds: S1 normal heart sound present, S2 normal heart sound present, no gallops, no murmurs and no rubs GI: Palpation (GI): Soft to palpation Back/Spine/Pelvis: Other: unremarkable Skin: General skin exam: no rashes or lesions noted Neuro: General: patient oriented x3 Extrem: General: Yes normal to inspection Psych: Mental Status: mental status grossly normal Objective Labs and Meds 06/20/25 18:41 06/20/25 18:41 Lab results: Laboratory Results - last 24 hr 06/20/25 06/20/25 06/21/25 18:41 21:37 07:04 WBC 8.4 RBC 4.32 L Hgb 13.1 L Hct 40.1 L MCV 92.8 MCH 30.3 MCHC 32.7 RDW 17.5 H Plt Count 179 MPV 10.5 Immature Gran % (Auto) 0.2 Neut % (Auto) 71.5 Lymph % (Auto) 17.6 L [place] % (Auto) 9.4 Eos % (Auto) 0.8 Baso % (Auto) 0.5 Lymph # (Auto) 1.5 [place] # (Auto) 0.8 Eos # (Auto) 0.1 Baso # (Auto) 0.0 Abs Immat Gran (auto) 0.02 Absolute Neuts (auto) 6.0 Absolute Nucleated RBC 0.000 Nucleated RBC % (auto) 0.0 Sodium 140 Potassium 5.1 D Chloride 111 H Carbon Dioxide 20 L Anion Gap 14 BUN 18 H Creatinine 0.73 Estim Creat Clear Calc 93.0 Estimated GFR > 60 POC Glucose 88 Random Glucose 119 H Calcium 9.0 Total Bilirubin 1.8 H AST 52 H ALT 41 H Alkaline Phosphatase 64 Troponin I High Sens 10.6 11.7 B-Natriuretic Peptide 3006 H Total Protein 7.1 Albumin 4.0 COVID-19 ([facility]) Negative COVID-19 Clin Com See Note Influenza Type A (CLYDE) Negative Influenza Type B (CLYDE) Negative Influenza A & B Note See Note ECG Interpretation: EKG shows sinus rhythm at 81/Min; nonspecific ST-T changes; normal MI and corrected QT. Assessment and Plan (1) Acute on chronic combined systolic and diastolic ACC/AHA stage C congestive heart failure: Status: Acute Plan Labs reveal a steady increase in cardiac BNP over the last several months. In the last echocardiogram from October of this year, LVEF is 20 25%. LV cavity moderately dilated. Mild mitral regurgitation. Overall, treat for acute on chronic heart failure. IV diuresis. Keep him on his usual home medication as before. Hopefully, should improve in the next day or so. Discussed with Dr. Lin. Procedures Date of Service Date of Service: 06/21/25
--- NOTE | 2025-06-21 11:01 | MHC.CM.PN ---
Addendum entered by Natasha Redmond 06/21/25 12:49: PT CLEARED TO DC HOME TODAY SELF CARE Original Note: PT REPORTS HE LIVES WITH HIS AND IS INDEPENDENT WITH CARE HE HAS DM SUPPLIES FOR DME AND NO SERVICES DECLINES A HCP PCP: DOMINIQUE WHITMORE IMM DELIVERED DCP: HOME VIA PRIVATE TRANSPORT
--- NOTE | 2025-06-21 11:25 | HO.PM.IMPN ---
Subjective Subjective Date of Service: 06/21/25 Interval History: sob improving Physical Exam Vital Signs: Vital Signs: Last Vital Signs Temp 98.2 F 06/21/25 08:02 Pulse 91 06/21/25 08:02 Resp 21 H 06/21/25 08:02 BP 137/92 H 06/21/25 08:02 Pulse Ox 97 06/21/25 08:02 O2 Del Method Room Air 06/21/25 08:02 BMI result Body Mass Index 23.5 Const: General: comfortable and no acute distress Orientation/consciousness: patient oriented x3 HEENT: Other: Unremarkable Head: Yes normal to inspection Neck: Neck: Yes normal visual inspection Chest: Chest palpation & inspection: normal inspection of the chest Resp: Other: Few basal crackles Cardio: Palpation: normal PMI Heart sounds: S1 normal heart sound present, S2 normal heart sound present, no gallops, no murmurs and no rubs GI: Palpation (GI): Soft to palpation Back/Spine/Pelvis: Other: unremarkable Skin: General skin exam: no rashes or lesions noted Neuro: General: patient oriented x3 Extrem: General: Yes normal to inspection Psych: Mental Status: mental status grossly normal Objective Data Active Medications Acetaminophen (Acetaminophen 325 Mg Tablet) 650 mg PO Q6H PRN PRN Reason: Pain, Mild 1-3,fever,headache Calcium Carbonate (Calcium Carbonate 750 Mg Tab.Chew) 750 mg PO Q4H PRN PRN Reason: Heartburn Dextrose (Dextrose 50 % 25 Gm/50 Ml Syringe) 25 gm IVPUSH Q15M PRN; Protocol PRN Reason: per Hypoglycemia Standing Ord. Enoxaparin Sodium (Enoxaparin Sodium 40 Mg/0.4 Ml Syringe) 40 mg SUBCUT Q24H [facility] Last Admin: 06/20/25 23:48 Dose: 40 mg Documented By: MELCHOR Furosemide (Furosemide 40 Mg/4 Ml Vial) 40 mg IVPUSH DAILY [facility]; Protocol Last Admin: 06/21/25 08:01 Dose: 40 mg Documented By: JORDI Glucose (Glucose Gel 15 Gm Gel..Gram.) 15 gm PO Q15M PRN; Protocol PRN Reason: per Hypoglycemia Standing Ord. Insulin Human Lispro (Insulin Lispro 100 Unit/Ml 3 Ml Vial) 0 unit SUBCUT QIDACHS [facility]; Protocol Last Admin: 06/21/25 07:05 Dose: Not Given Documented By: JORDI Non-Admin Reason: No Insulin Coverage Magnesium Hydroxide (Milk Of Magnesia 30 Ml Oral.Susp) 30 ml PO DAILY PRN PRN Reason: Constipation Melatonin (Melatonin 3 Mg Tablet) 6 mg PO BEDTIME PRN PRN Reason: Insomnia Sodium Chloride (0.9 % Sodium Chloride Flush 3 Ml Syringe) 3 ml IVFLUSH QSHIFT [facility] Last Admin: 06/21/25 08:00 Dose: 3 ml Documented By: JORDI Labs 06/20/25 18:41 06/20/25 18:41 Labs: Laboratory Results - last 24 hr 06/20/25 06/20/25 06/21/25 18:41 21:37 07:04 MCV 92.8 MCH 30.3 MCHC 32.7 RDW 17.5 H Plt Count 179 MPV 10.5 Immature Gran % (Auto) 0.2 Neut % (Auto) 71.5 Lymph % (Auto) 17.6 L [place] % (Auto) 9.4 Eos % (Auto) 0.8 Baso % (Auto) 0.5 Lymph # (Auto) 1.5 [place] # (Auto) 0.8 Eos # (Auto) 0.1 Baso # (Auto) 0.0 Abs Immat Gran (auto) 0.02 Absolute Neuts (auto) 6.0 Absolute Nucleated RBC 0.000 Nucleated RBC % (auto) 0.0 Anion Gap 14 Estim Creat Clear Calc 93.0 Estimated GFR > 60 POC Glucose 88 Random Glucose 119 H Calcium 9.0 Total Bilirubin 1.8 H AST 52 H ALT 41 H Alkaline Phosphatase 64 B-Natriuretic Peptide 3006 H Total Protein 7.1 Albumin 4.0 COVID-19 ([facility]) Negative COVID-19 Clin Com See Note Influenza Type A (CLYDE) Negative Influenza Type B (CLYDE) Negative Influenza A & B Note See Note Assessment and Plan (1) CHF exacerbation: Status: Acute Plan 64M PMH chronic systolic CHF status post AICD, hypertension, hyperlipidemia, COPD, MARVA, diabetes, gout, BPH presented with shortness of breaths Acute on chronic systolic CHF Continue IV Lasix Carvedilol, Entresto, Aldactone Aspirin, statin Diabetes Insulin sliding scale BPH Flomax DVT prophylaxis with Lovenox Full Code reason for continued hospitalization:iv diuresis Quality Stroke Does the patient have a stroke diagnosis?: No VTE Prior VTE?: No VTE Risk Level:: Medical - moderate - high VTE Device Contraindication: Treatment Not Indicated VTE Drug Contraindication: N/A - Med Ordered
--- NOTE | 2025-06-21 12:11 | PM.DS ---
DS: Providers Provider Date of Service: 06/21/25 Date of admission: 06/20/25 22:51 Date of discharge: 06/21/25 Primary care physician: Farrah Jackson DO Consults: 06/20/25 22:51 Consult to Cardiology Routine Consulting Provider: [facility] Reason for consultation: CHF DS: Diagnosis Discharge Diagnosis (1) CHF exacerbation: Status: Acute DS: Summary Hospital Course Hospital Course: from initial hpi: 64-year-old male with a past medical history of HTN, HLD, COPD, CHF with EF of 35%, AICD; BPH, MARVA, diabetes, gout presented to the hospital today with a chief complaint of shortness of breath. Patient reports over the past 3 days he has been having shortness of breath especially on exertion. Denies any orthopnea or PND. Denies any weight gain. Reports he has been compliant with his home medications. Denies any chest pain or palpitations. Review of all other systems is negative except mentioned above ER course: Per ER team, patient presentation noted to be short of breath but saturating well on room air. Chest x-ray showed costophrenic blunting; proBNP elevated to 3000. Given Lasix. hospital course: Patient was admitted for acute on chronic systolic CHF, he was given IV Lasix and plan was to continue IV diuresis for couple of days, however, patient improved expected and he was not interested in staying longer for ongoing IV diuresis he will be discharged home and continue p.o. maintenance Lasix and should monitor weight gain, edema, shortness of breath and follow up with Cardiology. He will continue on neuro hormonal medications of carvedilol, Entresto, Aldactone, Farxiga as well as aspirin and statin. For diabetes was continued on insulin sliding scale. For BPH was continued on Flomax. Time Attestation Discharge Coordination Time (in mins): 33 Quality: Safe Use of Opioids Does Pt have an Active Cancer Diagnosis on the Problem List?: No Quality: Stroke Does the patient have a stroke diagnosis?: No Physical Exam Vital Signs: Vital Signs: Last Vital Signs Temp 98.2 F 06/21/25 08:02 Pulse 91 06/21/25 08:02 Resp 21 H 06/21/25 08:02 BP 137/92 H 06/21/25 08:02 Pulse Ox 97 06/21/25 08:02 O2 Del Method Room Air 06/21/25 08:02 BMI result Body Mass Index 23.5 Const: General: comfortable and no acute distress Orientation/consciousness: patient oriented x3 HEENT: Other: Unremarkable Head: Yes normal to inspection Neck: Neck: Yes normal visual inspection Chest: Chest palpation & inspection: normal inspection of the chest Resp: Other: Few basal crackles Cardio: Palpation: normal PMI Heart sounds: S1 normal heart sound present, S2 normal heart sound present, no gallops, no murmurs and no rubs GI: Palpation (GI): Soft to palpation Back/Spine/Pelvis: Other: unremarkable Skin: General skin exam: no rashes or lesions noted Neuro: General: patient oriented x3 Extrem: General: Yes normal to inspection Psych: Mental Status: mental status grossly normal DS: Data Data Completed and Pending Labs on day of discharge: Laboratory Results - last 24 hr 06/20/25 06/20/25 06/21/25 18:41 21:37 07:04 WBC 8.4 RBC 4.32 L Hgb 13.1 L Hct 40.1 L MCV 92.8 MCH 30.3 MCHC 32.7 RDW 17.5 H Plt Count 179 MPV 10.5 Immature Gran % (Auto) 0.2 Neut % (Auto) 71.5 Lymph % (Auto) 17.6 L [place] % (Auto) 9.4 Eos % (Auto) 0.8 Baso % (Auto) 0.5 Lymph # (Auto) 1.5 [place] # (Auto) 0.8 Eos # (Auto) 0.1 Baso # (Auto) 0.0 Abs Immat Gran (auto) 0.02 Absolute Neuts (auto) 6.0 Absolute Nucleated RBC 0.000 Nucleated RBC % (auto) 0.0 Sodium 140 Potassium 5.1 D Chloride 111 H Carbon Dioxide 20 L Anion Gap 14 BUN 18 H Creatinine 0.73 Estim Creat Clear Calc 93.0 Estimated GFR > 60 POC Glucose 88 Random Glucose 119 H Calcium 9.0 Total Bilirubin 1.8 H AST 52 H ALT 41 H Alkaline Phosphatase 64 Troponin I High Sens 10.6 11.7 B-Natriuretic Peptide 3006 H Total Protein 7.1 Albumin 4.0 COVID-19 ([facility]) Negative COVID-19 Clin Com See Note Influenza Type A (CLYDE) Negative Influenza Type B (CLYDE) Negative Influenza A & B Note See Note Discharge Plan Discharge Anticipated Discharge Date/Time: 06/21/25 12:09 Patient Disposition: Home, Self-Care Discharge Diagnosis: chf Referrals: Farrah Jackson DO [Primary Care Provider, Internal Medicine] - 1 Week Discharge Medications: Continued spironolactone 25 mg tablet 25 mg PO DAILY Qty: 90 3RF furosemide 20 mg tablet 20 mg PO DAILY 30 Days Qty: 30 0RF sertraline 25 mg Tablet 25 mg PO DAILY carvedilol 12.5 mg tablet 18.75 mg PO BID albuterol sulfate 90 mcg/actuation HFA aerosol inhaler 2 puff inhalation QID PRN (Reason: shortness of breath or wheezing) 30 Days Qty: 8.5 0RF dicyclomine 20 mg tablet 20 mg PO TID Qty: 10 0RF tamsulosin 0.4 mg capsule 0.4 mg PO BEDTIME gabapentin 300 mg capsule 300 mg PO BEDTIME dapagliflozin propanediol [Farxiga] 10 mg tablet 10 mg PO DAILY sacubitril-valsartan [Entresto] 49-51 mg tablet 1 tab PO BID cyclobenzaprine 10 mg Tablet 10 mg PO Q8H PRN (Reason: Muscle Spasm) aspirin 81 mg Tablet,Delayed Release (Dr/Ec) 81 mg PO DAILY clotrimazole 1 % Cream 1 appl TOPICAL BID atorvastatin [Lipitor] 80 mg tablet 80 mg PO BEDTIME metformin 500 mg tablet 1,000 mg PO BID Discharge Orders: Discharge Order (Routine); Ordered 06/21/25 Ordered By: Alexx Lin Diet: Advance to usual diet Activity on Discharge: As tolerated Stand Alone Forms: Patient Portal Discharge page Print Language: Kinyarwanda Care Plan Goals: manage chf Health Concerns: chf Plan of Treatment: continue meds, monitor weight gain, edema, sob, follow up with cardio Assessment: see above
[2025-06-21 12:34] VITALS: BP 122/73; PULSE 93; RESP 18; TEMP 36.4; O2SAT 97
== END 2025-06-21 12:28 | disposition home or self-care (01) | DRG 291 ==
LOC: HO.ED 22:54 → HO.EDOVER 22:54
PROVIDERS: Physician Assistant Medical; Admitting Provider Hospitalist; Emergency Provider Emergency Medicine; PCP Family Medicine; Visit Provider Internal Medicine
DX: I11.0 Hypertensive heart disease with heart failure (principal); I50.23 Acute on chronic systolic (congestive) heart failure; N40.0 Benign prostatic hyperplasia without lower urinary tract symptoms; G47.33 Obstructive sleep apnea (adult) (pediatric); I34.0 Nonrheumatic mitral (valve) insufficiency; I42.8 Other cardiomyopathies; E11.9 Type 2 diabetes mellitus without complications; Z20.822 Contact with and (suspected) exposure to COVID-19; Z95.810 Presence of automatic (implantable) cardiac defibrillator; Z79.82 Long term (current) use of aspirin; Z79.84 Long term (current) use of oral hypoglycemic drugs; Z79.899 Other long term (current) drug therapy
CPT/HCPCS: 36415; 71046; 80053; 82947; 83880; 84484; 85025; 87502; 87635; 93005; 99285; J1650; J1938

== ENCOUNTER → 2025-06-20 21:15 | Outpatient (BNV) | payer OTHER, SELFPAY | PROVIDERS: Admitting Provider Hospitalist; Emergency Provider Emergency Medicine; PCP Family Medicine; Visit Provider Radiology Diagnostic Radiology | DX: J98.11 Atelectasis (principal) | CPT/HCPCS: 71046 ==

== ENCOUNTER → 2025-06-20 22:51 | Outpatient (BNV) | payer OTHER, SELFPAY | PROVIDERS: Admitting Provider Hospitalist; Emergency Provider Emergency Medicine; PCP Family Medicine; Visit Provider Internal Medicine | DX: I50.43 Acute on chronic combined systolic (congestive) and diastolic (congestive) heart failure (principal) | CPT/HCPCS: 93010; 99223 ==

== ENCOUNTER → 2025-06-20 22:51 | Outpatient (BNV) | payer OTHER, SELFPAY | PROVIDERS: Admitting Provider Hospitalist; Emergency Provider Emergency Medicine; PCP Family Medicine; Visit Provider Internal Medicine | DX: I50.23 Acute on chronic systolic (congestive) heart failure (principal) | CPT/HCPCS: 99223; 99239; 99499 ==

== ENCOUNTER 2025-07-03 13:44 | Outpatient (AMB) | payer OTHER, SELFPAY ==
--- NOTE | 2025-07-03 13:45 | MHC.OFFVIS ---
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 Apparently the patient was in the usual state health until about 10 years ago when he started developing recurrent pneumonias. He was found to have a pulmonary mass and was referred to [facility]. He was seen by thoracic surgery in and underwent a partial left upper lobe lobectomy removing what appeared to be a carcinoid per report. I do not have the pathology to review. The patient did have follow-up afterwards but did not require any additional therapies. Overall continue to do well. More recent the patient was developing worse per 3 symptoms and had a repeat chest x-ray back in January 13 demonstrating increase interval haziness of his lungs suggesting of pneumonia and potential pleural effusion. Was treated for that and then discharged. Current the patient feels better he is exercising he denies any significant cough. He states his appetite is good is maintaining his weight. He has lost weight because does been intentional with his lifestyle changes in his exercise. He does have some mild dyspnea on exertion. We did go for a brief walking oximetry in his pulse ox maintain 96 97% with activity with is reassuring. We did review his imaging studies he had her CT scan last done in 2014 demonstrating some bronchiectatic changes in addition to some postoperative changes. We did review his echocardiogram from January demonstrating an EF of 35-40%. While we wait for the results of the studies will go ahead and start him on Symbicort to see if he gets any benefit from the long-acting beta agonist inhaled cortical steroid. 06/17/2020 The patient is here for pulmonary follow-up visit. Initially was feeling very good on the Symbicort. He was able to go to work in his breathing had improved dramatically. However, later he started developing nausea and vomiting after he used it. Was like if he was having allergic reaction to it or an adverse reaction to her. However he kept using it because he could not breathe well. He still continues use about his feels like is now getting more short of breath with minimal activity. He was supposed to get his pulmonary function studies but because of his worsening breathing he was not able to do them. He did not get a CT scan of the chest. On further questioning also complains that he has been coughing up some mucus with also some blood-tinged sputum. He denies any leg swelling history of blood clots. In the blood work we did request a D-dimer that came back elevated. Therefore because of his respiratory symptoms his hemoptysis is elevated D-dimer I will request a CT scan angiogram of the chest to assess for thromboembolic disease. 07/09/2020 the patient is a telephone visit. He is starting to complain about shortness of breath. Initially the last time we did give him Lasix which she took for several days in his respiratory status became significantly better. However, his Lasix was then completed and he started having worsening shortness of breath. We did review his last echocardiogram demonstrating an EF of 45% with hypokinesis of the left ventricle. In addition to that we did discuss the CT scan findings again. The patient was supposed to go for repeat echocardiogram but he has not done so. He was also supposed to undergo pulmonary function studies but he has not done so. In the meantime explained to him that he is already taking a diuretic, hydrochlorothiazide. My recommendation is for him to take Lasix for 3 additional days and reassess. In the meantime, we talked about the importance of dietary restrictions limiting his sodium intake. The patient is aware that he has to make lifestyle changes and is going to start this as soon as possible. 08/20/2020 the patient is here for pulmonary follow-up visit. Recently he started developing worsening shortness of breath. He did go to the ER. Had a chest x-ray demonstrating some cephalization bilateral pleural effusions. There were small. He did undergo an echocardiogram demonstrating a decreased ejection fraction of about 20-25%. Become very concerned about this. He does have a follow-up with cardiology soon. In meantime he is having daytime drowsiness. He is having headaches in morning. Now with significant cardiac disease to repeat his sleep study. Will try to have him get a home sleep study at this time. Continues with diuresis and his cardiac medications were optimized further. He does have a short-acting beta agonist that he uses as needed. At this point will not going to add any additional inhalers to minimize interactions with his cardiac issues. We did review his last CT scan of the chest that he had recently when he went to the ER which was reassuring. 02/05/2022 the patient is here for pulmonary follow-up visit. Overall the patient is doing well. He has been staying active and Still participating in pulmonary rehabilitation. He has found the pulmonary rehab extremely helpful. He would like to continue it. Will request that he continue on face 3. he also has been very compliant with his CPAP. The CPAP therapy has been affecting beneficial. He does use it all night more than 4 hours a night. Has been getting supplies regularly. His last echocardiogram was back in October 2020 which demonstrated an EF of 25-30%. Will go ahead and repeated at this time. In addition to this he had CTA recently back in November 2021 demonstrating stable lung parenchyma without any recurrence of the carcinoid. 03/27/2025 the patient is here for pulmonary follow-up visit. Overall the patient has been doing okay. Back in February he did go to the ER with shortness of breath. He had a chest x-ray demonstrating congestive heart failure. Was placed on Lasix and was discharged. He felt much better. The patient has been trying to be careful the sodium intake. He now continues to take 1 tablet of Lasix tingling. Will go ahead and keep him on it. He will see Cardiology in a month. He is already on very good congestive heart failure treatment. It also has his ICD. He understands that he has a very careful with the fluid status. In the meantime he continues has significant daytime drowsiness. His [place] is elevated 12/24. The patient did have CPAP in the past but he could not tolerate any longer. Therefore stopped using it. With cardiovascular disease and congestive heart failure he understands is very important for him to tolerated. Will go ahead and order an in-lab sleep study at this time to get him reactivity with the [employer] and start treating him again for the sleep apnea. The patient is agreeable at this time. Will follow-up in 3 3 months after the study to review and to start the therapy. Will discuss additional imaging during the next visit. 07/03/2025 the patient is here for pulmonary follow-up visit. Overall the patient has been doing well. He although he has been losing weight. The family has been concerned. I did reach out to his primary care doctor regarding that. In the meantime the patient does have daytime drowsiness. He has not elevated [place] score of 12/24. The patient also has a cardiac condition. He does have a cardiomyopathy with an EF of 20-25%. He did go to the ER with congestive heart failure recently. I did give him additional Lasix for him to take if he starts gaining weight. He will follow-up with cardiology as well. The patient has been having hard time in the past tolerating his CPAP. He had a repeat sleep study demonstrating severe sleep apnea and also hypoxia. Will have him undergo a titration study to see exactly what mask and what pressures are and what settings he would need in order to be successful with his PAP therapy specially with significant cardiac disease. The patient also will benefit from pulmonary rehabilitation. Will go ahead and have him undergo pulmonary function studies in order to get him to rehab [facility]. [facility] Medical History Pacemaker Gout Wofpm-[id number] deficiency Encounter for discussion regarding implantable cardioverter-defibrillator Cardiomyopathy COPD (chronic obstructive pulmonary disease) Essential hypertension PVC (premature ventricular contraction) MARVA (obstructive sleep apnea) Carcinoid tumor High cholesterol Prostate enlargement Diabetes Surgical History History of surgical procedure (~2022) History of prostate surgery Hx of colonoscopy History of bronchoscopy History of lobectomy of lung Family History Son No problems noted. Father No problems noted. 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 Review of Systems Const Reports daytime sleepiness, Reports difficulty sleeping, Denies night sweats and Reports weight loss ENT Denies change in voice, Denies lip swelling, Denies mouth pain, Denies nasal congestion, Denies nasal discharge and Denies tongue swelling Card Denies chest pain, Reports dyspnea on exertion and Denies orthopnea Resp Reports cough and Reports dyspnea on exertion GI Denies abdominal pain Musc Denies no additional complaints Neuro Denies Neuro-related abnormal movements Psych Denies no additional complaints Jack/Lymph Denies easy bleeding and Denies lymphadenopathy Aller/Immun Denies lip swelling and Denies tongue swelling Physical Exam Vital Signs: Last Vital Signs Pulse 68 07/03/25 13:47 BP 108/74 07/03/25 13:47 Pulse Ox 98 07/03/25 13:47 Oxygen Delivery Method Room Air 07/03/25 13:47 BMI result Body Mass Index 22.4 Const General: alert Neck Neck: Yes normal visual inspection, Yes full ROM and Yes no lymphadenopathy Chest Chest palpation & inspection: normal inspection of the chest Resp Effort & Inspection: normal respiratory effort Auscultation: diminished lung sounds Cardio Rate: regular rate Rhythm: regular rhythm Heart sounds: S1 normal heart sound present and S2 normal heart sound present GI Palpation (GI): Soft to palpation and nontender Auscultation: normal bowel sounds Skin General skin exam: rashes and/or lesions noted Assessment & Plan Assessment & Plan (1) MARVA (obstructive sleep apnea): Code(s): G47.33 - Obstructive sleep apnea (adult) (pediatric) Category: Medical (2) NICM (nonischemic cardiomyopathy): Code(s): I42.8 - Other cardiomyopathies Category: Medical (3) S/P ICD (internal cardiac defibrillator) procedure: Code(s): Z95.810 - Presence of automatic (implantable) cardiac defibrillator Category: Surgical (4) Tachycardia, unspecified: Code(s): R00.0 - Tachycardia, unspecified Category: Medical (5) COPD (chronic obstructive pulmonary disease): Comment: Followed by Dr. Curiel Code(s): J44.9 - Chronic obstructive pulmonary disease, unspecified Category: Medical Qualifiers: COPD type: chronic bronchitis Chronic bronchitis type: simple Qualified Code(s): J41.0 - Simple chronic bronchitis Plan in lab PSG with severe MARVA and hypoxia, will request a PSG titration study continue Symbicort JUANITA as needed Low Na diet PFTs Pulmonary rehab F/U 3-4 months Orders: Orders PFT pulmonary function test Today J41.0 - Simple chronic bronchitis RT PSG in-lab sleep titration Today G47.33 - Obstructive sleep apnea (adult) (pediatric) Pulmonary Rehab Today J41.0 - Simple chronic bronchitis Medications: New furosemide (Lasix) 20 mg PO DAILY PRN 14 tabs 1RF weight gain 30 days Coding Level of Care Code Est Pt Level 4 (08586) Complex EM visit Add On G2211 Diagnoses MARVA (obstructive sleep apnea) G47.33 NICM (nonischemic cardiomyopathy) I42.8 S/P ICD (internal cardiac defibrillator) procedure Z95.810 Tachycardia, unspecified R00.0 Simple chronic bronchitis J41.0 COPD type: chronic bronchitis Chronic bronchitis type: simple Time Spent (min) 17
[2025-07-03 13:47] VITALS: BP 108/74; PULSE 68; O2SAT 98; BMI 22.4
--- OUTSIDE RECORDS SUMMARY | 2025-07-03 16:16 | XMS_ITS | Encounter Summary ---
Author Organization [employer] Address [address] [place] [address] Care Team Providers Care Career Resource Technician Name Role Phone Meagan Jacksonfer Primary Care Provider + [phone] Reason for Visit * Reason Comments Med Refill Encounter Details Date Type Department Care Team ([facility] Contact Info) Description 11/19/2023 Refill [facility] MEDICINE [address] [place], [place] [phone] Juana Wilson MD [address] [place], [place] [phone] Social History Tobacco Use Types Packs/Day Years [...] Description 09/10/2025 1:00 PM EST Office Visit [facility] OPTOMETRY [address] [place], [place] [phone] Marie Zhao, OD [address] [place] [address] documented as of this encounter Visit Diagnoses Not on filedocumented in this encounter Care Teams Career Resource Technician Relationship Specialty Start Date End Date Farrah Jackson DO [address] [place] [address] PCP - General Family Medicine 10/25/18 documented as of this encounter
--- OUTSIDE RECORDS SUMMARY | 2025-07-03 16:16 | XMS_ITS | Clinical Summary ---
Author Organization [facility] Address [address] [address] Phone Care Team Providers Care Gauge And Weigh Machine Adjuster Name Role Phone KrissyFarrah knight Primary Care [...] on file Insurance GENERIC COMMERCIAL MD NGOZI [id number] GENERIC COMMERCIAL MD NGOZI [id number] GENERIC COMMERCIAL MD NGOZI [id number] GENERIC COMMERCIAL MD NGOZI [id number] GENERIC COMMERCIAL MD NGOZI [id number] GENERIC COMMERCIAL MD NGOZI [id number] GENERIC COMMERCIAL MD NGOZI [id number] GENERIC COMMERCIAL GENERIC COMMERCIAL Care Teams Gauge And Weigh Machine Adjuster Relationship Specialty Start Date End Date Farrah Jackson DO [address] [place] [address] PCP - General Family Medicine 01/06/19 Additional Source Comments The information contained in this document represents components of the legal health record. It is not the complete legal health record.[facility]
--- OUTSIDE RECORDS SUMMARY | 2025-07-03 16:16 | XMS_ITS | Encounter Summary ---
Author Organization [employer] Address [address] [place] [address] Care Team Providers Care Edger Runner Name Role Phone Farrah Jackson DO Primary Care Provider + [phone] Reason for Visit * Reason Onset Date Comments pain medication to pharmacy 05/22/2024 Encounter Details Date Type Department Care Team ([facility] st Contact Info) Description 05/22/2024 Telephone [facility] ADULT DENTAL [address] [place] [address] Farhad Knott, DMD [address] [place] [address] pain medication to pharmacy Social History Tobacco [...] EST Office Visit [facility] OPTOMETRY [address] [place] [address] Marie Zhao, OD [address] [place] [address] documented as of this encounter Visit Diagnoses Not on filedocumented in this encounter Additional Health Concerns Assessment Noted Time PHQ-9 Depression Total Score: 2 04/21/20 24 8:50 AM EDT documented as of this encounter Care Teams Edger Runner Relationship Specialty Start Date End Date Farrah Jackson DO [address] [place] [address] PCP - General Family Medicine 10/25/18 documented as of this encounter
--- OUTSIDE RECORDS SUMMARY | 2025-07-03 16:16 | XMS_ITS | Encounter Summary ---
Author Organization [facility] Address [address] [place] [address] Care Team Providers Care Sharepoint Application Architect Name Role Phone Unavailable Primary Care Provider Unavailabl e Encounter Details Date Type Department Care Team (Late st Contact Info) Description 09/11/2024 Lab Requisition [facility] [address] [place] [address] Krishna Jose MD [address] [facility] [address] [place] [phone] Elevated prostate specific antigen (PSA) Social History [...] Acute inflammation present. 09/20/2024 4:27 PM EST [facility] Gross Description A. Urine, Voided, : [id number] Recd 1 TP CYTO 09/20/2024 4:27 PM EST [facility] Disclaimer Unless otherwise specified, all tissue is 10% NB formalin fixed and paraffin embedded. 09/20/2024 4:27 PM EST [facility] Tissue Urine specimen from urethra / Unknown 09/06/2024 09/11/2024 1:13 PM EST us Krishna Jose MD LAB PATHOLOGY ORDERABLES Final Result [facility] [address] [place] [address], documented in this encounter Visit Diagnoses Diagnosis Elevated prostate specific antigen (PSA) documented in this encounter
--- OUTSIDE RECORDS SUMMARY | 2025-07-03 16:16 | XMS_ITS | Encounter Summary ---
Author Organization [employer] Address [address] [place] [address] Care Team Providers Care Title I Coordinator Name Role Phone Meagan Jacksonfer Primary Care Provider + [phone] Reason for Visit * Reason Comments Med Refill Encounter Details Date Type Department Care Team ([facility] Contact Info) Description 01/11/2025 Refill [facility] MEDICINE [address] [place], [place] [phone] Alexsandra Luevano MD [address] [place], [place] [phone] Primary hypertension Social History Tobacco Use Types [...] Description 09/10/2025 1:00 PM EST Office Visit [facility] OPTOMETRY [address] [place] [address] Marie Zhao, OD [address] [place] [address] documented as of this encounter Visit Diagnoses Diagnosis Primary hypertension Unspecified essential hypertension documented in this encounter Additional Health Concerns Assessment Noted Time PHQ-9 Depression Total Score: 2 04/21/20 24 8:50 AM EDT documented as of this encounter Care Teams Title I Coordinator Relationship Specialty Start Date End Date Farrah Jackson DO [address] [place] [address] PCP - General Family Medicine 10/25/18 documented as of this encounter
--- OUTSIDE RECORDS SUMMARY | 2025-07-03 16:16 | XMS_ITS | Encounter Summary ---
Author Organization [employer] Address [address] [place] [address] Care Team Providers Care Pulpwood Contractor Name Role Phone Farrah Jackson DO Primary Care Provider + [phone] Reason for Visit * Reason Comments Med Refill Encounter Details Date Type Department Care Team ([facility] Contact Info) Description 07/10/2024 Refill [facility] MEDICINE [address] [place], [place] [phone] Farrah Jackson DO [address] [place], [place] [phone] Social History Tobacco Use Types Packs/Day Years [...] Description 09/10/2025 1:00 PM EST Office Visit [facility] OPTOMETRY [address] [place] [address] Marie Zhao, OD [address] [place] [address] documented as of this encounter Visit Diagnoses Not on filedocumented in this encounter Additional Health Concerns Assessment Noted Time PHQ-9 Depression Total Score: 2 04/21/20 24 8:50 AM EDT documented as of this encounter Care Teams Pulpwood Contractor Relationship Specialty Start Date End Date Farrah Jackson DO [address] [place] [address] PCP - General Family Medicine 10/25/18 documented as of this encounter
--- OUTSIDE RECORDS SUMMARY | 2025-07-03 16:16 | XMS_ITS | Encounter Summary ---
Author Organization [employer] Address [address] [facility] [place] [address] Care Team Providers Care Foundry Technician Name Role Phone Farrah Jackson DO Primary Care Provider + [phone] Reason for Visit * Reason Comments Med Refill Encounter Details Date Type Department Care Team ([facility] Contact Info) Description 11/14/2023 Refill [facility] MEDICINE [address] [place], [place] [phone] Farrah Jackson DO [address] [place], [place] [phone] Social History Tobacco Use Types Packs/Day Years [...] 1:00 PM EST Office Visit [facility] OPTOMETRY [address] [place], [place] [phone] Marie Zhao, OD [address] [place] [address] documented as of this encounter Visit Diagnoses Not on filedocumented in this encounter Care Teams Foundry Technician Relationship Specialty Start Date End Date Farrah Jackson DO [address] [place] [address] PCP - General Family Medicine 10/25/18 documented as of this encounter
--- OUTSIDE RECORDS SUMMARY | 2025-07-03 16:16 | XMS_ITS | Clinical Summary ---
Author Organization [address] [facility] Address [address] [place] [phone] Phone Care Team Providers Care Education Rn Name Role Phone Unavailable Primary Care Provider [...] 2008 Zoster Vaccines (1 of 2) 2008 Depression Screening 10/25/2024 COVID-19 Vaccine (1 - 2023-2 5 season) 2025 Influenza Vaccine (#1) 2025 RSV Immunization Adult [...]
--- OUTSIDE RECORDS SUMMARY | 2025-07-03 16:16 | XMS_ITS | Encounter Summary ---
Author Organization [employer] Address [address] [facility] 7[address] [place] [address] Care Team Providers Care Logistician Name Role Phone Farrah Jackson DO Primary Care Provider + [phone] Reason for Visit * Reason Onset Date Comments Nurse Triage 12/28/2023 Encounter Details Date Type Department Care Team ([facility] st Contact Info) Description 12/28/2023 Telephone [facility] MEDICINE [address] [place], [place] [phone] Farrah Jackson DO [address] [place], [place] [phone] Nurse Triage Social History Tobacco Use Types [...] for UTI. Pt is advised to come [facility] for provider to see Pt. Pt insurance is not active at this time and Pt is waiting for medicare to start. Advised to stop at front desk receptionist to speak about insurance before going to [facility] . Pt agreed with disposition and advised [...] accepted this outcome Please contact pt at [phone] documented in this encounter Plan of Treatment Upcoming Encounters Date Type Department Care Team ([facility] Contact Info) Description 09/10/2025 1:00 PM EST Office Visit [facility] OPTOMETRY [address] [place], [place] [phone] Marie Zhao, ANGIE [address] [place] [address] documented as of this encounter Visit Diagnoses Not on filedocumented in this encounter Care Teams Logistician Relationship Specialty Start Date End Date Farrah Jackson DO [address] [place] [phone] PCP - General Family Medicine 10/25/18 documented as of this encounter
--- OUTSIDE RECORDS SUMMARY | 2025-07-03 16:16 | XMS_ITS | Encounter Summary ---
Author Organization [employer] Address [address] [place] [address] Care Team Providers Care Clinical Psychologist Name Role Phone Farrah Jackson DO Primary Care Provider + [phone] Encounter Details Date Type Department Care Team (Late Contact Info) Description 01/15/2023 Orders Only [facility] [address] [place], [place] [phone] Farrah Baird LPN Social History Tobacco Use [...] Description 09/10/2025 1:00 PM EST Office Visit [facility] OPTOMETRY [address] [place] [address] Marie Zhao, OD [address] [place] [address] documented as of this encounter Visit Diagnoses Not on filedocumented in this encounter Care Teams Clinical Psychologist Relationship Specialty Start Date End Date Farrah Jackson DO [address] [place] [address] PCP - General Family Medicine 10/25/18 documented as of this encounter
--- OUTSIDE RECORDS SUMMARY | 2025-07-03 16:16 | XMS_ITS | Clinical Summary ---
Author Organization [employer] Address [address] [place] [address] Care Team Providers Care Second Baker Name Role Phone Farrah Jackson DO Primary Care Provider [phone] Allergies Active Allergy Reactions Criticality Noted Date Comments Metformin 04/10/2010 Other reaction(s): Other (See Comments) Dehydration Oxycodone High 06/10/2024 Other Reaction(s): vomiting, delusions Medications furosemide (Lasix) 20 MG tablet Take 20 mg by mouth in the morning. 2 Active Entresto 49-51 MG tablet Take 1 tablet by mouth 2 times daily. 3 Active spironolactone (Aldactone) 25 MG tablet Take 25 mg by mouth in the morning. 3 Active Blood Glucose Monitoring Suppl (FreeStyle Lite) w/Device kit 1 each 2 times daily. 1 kit 3 Active acetaminophen (Tylenol 8 Hour) 650 MG ER tablet Take 1 tablet (650 mg) by mouth every 8 (eight) hours if needed for mild pain. 40 tablet 1 3 Active Diclofenac Sodium 1 % gel Apply 2 g topically if needed in the morning, at noon, in the evening, and at bedtime (pain). 150 g 3 3 Active clonazePAM (KlonoPIN) 0.5 MG tablet Take 1 tablet (0.5 mg) by mouth if needed each day for anxiety for up to 7 days. 7 tablet 3 Active omega-3 1000 MG capsule capsule TAKE 1 CAPSULE BY MOUTH TWICE A DAY*NC* 180 capsule 3 3 Active Farxiga 10 MG Take 10 mg by mouth in the morning. 4 Active baclofen (Lioresal) 10 MG tablet Take 1 tablet (10 mg) by mouth if needed in the morning, at noon, and at bedtime for muscle spasms. 60 tablet 1 4 Active meloxicam (Mobic) 7.5 MG tablet Take 7.5 mg by mouth Once per day. 4 Active atorvastatin (Lipitor) 80 MG tablet TAKE 1 TABLET BY MOUTH AT BEDTIME 90 tablet 1 4 Active metFORMIN (Glucophage) 500 MG tablet TAKE 2 TABLETS BY MOUTH TWICE DAILY IN THE MORNING AND EVENING WITH MEALS 360 tablet 3 5 Active amoxicillin-clavu lanate (Augmentin) 875-125 MG tablet Take 1 tablet by mouth 2 times daily. 14 tablet 5 Active Spacer/Aero-Holdi ng Chambers (OptiChamber Deedee) misc 1 each every 4 (four) hours if needed (asthma). 1 each 5 Active albuterol (Ventolin HFA) 108 (90 Base) MCG/ACT inhaler Inhale 2 puffs every 4 (four) hours if needed for wheezing. 54 g 1 5 01/23/20 26 Active FREESTYLE LITE test stripIndications: Type 2 diabetes mellitus with microalbuminuria, without long-term current use of insulin ([facility]) USE DIRECTED TO TEST BLOOD SUGAR TWICE DAILY 100 strip 8 5 Active atorvastatin (Lipitor) 80 MG tablet TAKE 1 TABLET BY MOUTH AT BEDTIME 90 tablet 1 5 Active sertraline (Zoloft) 25 MG tablet TAKE 1 TABLET BY MOUTH EVERY MORNING 30 tablet 2 5 Active gabapentin (Neurontin) 300 MG capsule TAKE 1 CAPSULE BY MOUTH AT BEDTIME 30 capsule 3 5 Active carvedilol (Coreg) 12.5 MG tabletIndications :Primary hypertension TAKE 1 AND 1/2 TABLETS BY MOUTH TWICE DAILY IN THE MORNING AND IN THE EVENING WITH FOOD 90 tablet 1 5 Active Active Problems Problem Noted Date Diagnosed [...] Encounters Date Type Department Care Team Description 06/22/2025 Patient Outreach [facility] [address] [place] [phone] Farrah Jackson DO Transition Of Care (Tcm) (HDF- patient denied ) 06/20/2025 Orders Only GENERIC EXTERNAL DATA DEPARTMENT Provider, Generic External Data 06/08/2025 11:30 AM EDT Office Visit [address] [address] Farrah Jackson DO Type 2 diabetes mellitus with microalbuminuria, without long-term current use of insulin ([facility]) 06/08/2025 Travel 06/07/[address] [address] Farrah Jackson DO chart prep 05/30/2025 Patient Outreach [address] [address] Farrah Jackson DO Pre-visit Planning (SDOH screening negative and tobacco screening negative) 05/30/2025 Refill [facility] [address] [place] [address] Farrah Jackson DO Primary hypertension 05/29/2025 Orders Only [facility] External Provider, [facility] 05/25/2025 Telephone [facility] [address] [place] [address] Farrah Jackson DO Appointment Request 05/25/2025 Travel 05/08/2025 9:20 AM EDT Office Visit [facility] [address] [place] [address] Hilario, Lor, OD Type 2 diabetes mellitus with diabetic microalbuminuria, without long-term current use of insulin ([facility]) (Primary Dx) 05/08/2025 Telephone [facility] [address] [place] [address] Farrah Jackson DO Med Refill 05/08/2025 Travel 04/29/2025 Refill [facility] [address] [place] [address] Farrah Jackson DO 04/05/2025 Refill [facility] [address] [place] [address] Farrah Jackson DO Primary hypertension from Last 3 Months Immunizations Immunization Administration [...] Description 09/10/2025 1:00 PM EST Office Visit [facility] [address] [place] [address] Marie Zhao, OD [address] [place] [address] Health Maintenance Due Date Last Done Comments CT Colonography 1960 Colonoscopy 1958 Dental Oral Exam 1958 Dental Prophylaxis 1958 Dental X-Ray: Bitewings 1958 FIT 1958 Sigmoidoscopy 1958 Diabetes: Foot Exam 1968 Eye Exam 1968 Hepatitis A Vaccines (2 of 2 - Risk 2-dose series) 08/20/2006 02/18/2006 Dental X-Ray: Full Mouth 10/29/2013 10/28/2010 Hepatitis B Vaccines (3 of 3 - Risk 3-dose series) 09/14/2015 04/09/2015, 03/14/2015 RSV Patients and Patients Aged 60 years or older (1 - Risk 60-74 years 1-dose series) 2018 FOBT 08/26/2024 08/26/2023 Diabetes: Urine Protein Screening 04/21/2025 04/21/2024, 02/10/2023, 01/02/2021 Lipid Panel 04/21/2025 04/21/2024, 04/1 06/2023, 07/10/2022, Additional history exists COVID-19 Vaccine ( season) 2025 04/21/2024, 08/05/2023, 09/29/2022, Additional history exists Influenza Vaccine (#1) 2025 [...] Procedure Name Priority Date/Time Associated Diagnosis Comments XR CHEST 2 VIEWS Routine 06/20/2025 10:4 2 PM EDT HIGH SENSITIVITY TROPONIN I Routine 06/20/2025 9:37 PM EDT B TYPE NATRIURETIC PEPTIDE (BNP) Routine 06/20/2025 9:37 PM EDT COMPREHENSIVE METABOLIC PANEL Routine 06/20/2025 [...] microalbuminuria, without long-term current use of insulin ([facility]) POCT GLUCOSE Routine 06/08/2025 11:30 AM EDT Type 2 diabetes mellitus with microalbuminuria, without long-term current use of insulin ([facility]) CT ABDOMEN PELVIS W CONTRAST [...] Recently Relevant to Health Maintenance Results * XR Chest 2 Views (06/20/2025 10:42 PM EDT) Only the most recent of2 resultswithin the time period is included. Anatomical Region Laterality Modality Chest Radiographic Dasia ging 06/20/2025 10:4 2 PM EDT Narrative 06/20/2025 10:44 PM EDT [address] [address] XRay Report Signed Patient: Sonny uCriel MR#: [id number] : 1960 Acct:[id number] Age/Sex: 64 / M ADM Date: 06/20/25 Loc: HO.ED Attending Dr: Ordering Physician: Tamiko Luna MD Date of Service: 06/20/25 Procedure(s): XR chest 2V Accession Number(s): [id number] cc: Tamiko Luna MD; Farrah Jackson DO CLINICAL HISTORY: sob --- Additional Notes or Special Instructions: with doctor-09:21pm Chest X-ray, 2 Views COMPARISON: CR/SR - XR CHEST 2 VIEWS - 05/29/25 16:16 EDT CR - XR CHEST 2V - 03/17/25 11:07 EDT CR/MI/SR - XR CHEST 2V - 12/19/22 11:51 EST FINDINGS: Mid to lower left lung atelectasis or infiltrate. Probable atelectasis in the right lower lung. Mild blunting of the bilateral costophrenic angles. No pneumothorax. Stable cardiomegaly. Left-sided AICD in place obscuring a portion of the study. No acute fracture. Degenerative changes in the spine. IMPRESSION: Left mid to lower lung atelectasis or infiltrate. Small bilateral pleural effusions. Nonemergent/incidental findings above. This document has been electronically signed by: Ventura Sánchez MD on 06/20/2025 22:42:21 Dictated By: Ventura Sánchez MD Signed By: <Electronically signed by Ventura Sánchez MD in OV> 06/20/252242 DD/ 41 TD/TT: 06/20/252241 Mold Sander: Procedure Note Donotuseinterpreter, Image - 06/20/[address] [address] XRay Report Signed Patient: Taya CurielR#: [id number] : 1960cct:[id number] Age/Sex: 64 / MADM Date: 06/20/25 Loc: HO.ED Attending Dr: Ordering Physician: Tamiko Luna MD Date of Service: 06/20/25 Procedure(s): XR chest 2V Accession Number(s): [id number] cc: Tamiko Luna MD; Farrah Jackson DO CLINICAL HISTORY: sob --- Additional Notes or Special Instructions: withdoctor-09:21pm Chest X-ray, 2 Views COMPARISON: CR/SR - XR CHEST 2 VIEWS - 05/29/25 16:16 EDT CR - XR CHEST 2V - 03/17/25 11:07 EDT CR/MI/SR - XR CHEST 2V - 12/19/22 11:51 EST FINDINGS: Mid to lower left lung atelectasis or infiltrate. Probable atelectasis in the right lower lung. Mild blunting of the bilateral costophrenic angles. No pneumothorax. Stable cardiomegaly. Left-sided AICD in place obscuring a portion of the study. No acute fracture. Degenerative changes in the spine. IMPRESSION: Left mid to lower lung atelectasis or infiltrate. Small bilateral pleural effusions. Nonemergent/incidental findings above. This document has been electronically signed by: Ventura Sánchez MD on 06/20/2025 22:42:21 Dictated By: Ventura Sánchez MD Signed By: <Electronically signed by Ventura Sánchez MD in OV> 06/20/252242 DD/ 41 TD/TT: 06/20/252241 Mold Sander: [facility] External Provider IMG XR PROCEDURES Edited Result - Final * High Sensitivity Troponin I (06/20/2025 9:37 PM EDT) Only the most recent of3 resultswithin the time period is included. TROPONIN I HIGH SENSITIVITY 11.7 <3.5 - 35.0 ng/L [facility] Comment:The [place] high sens itivity Troponin-I results should beused in conjunction with other diagnostic information suchas ECG, clinical observations and information, and patientsymptoms to aid in the diagnosis of AR. 06/20/2025 9:37 PM EDT 06/20/2025 9:40 PM EDT us Generic External Data Provider LAB BLOOD ORDERAB LES Final Result Performing Organization Address [facility] Co de Phone Number [facility] [address] [place] [phone] * (ABNORMAL) B Type Natriuretic Peptide (BNP) (06/20/2025 9:37 PM EDT) Only the most recent of2 resultswithin the time period is included. B Type Natriuretic Peptide 3,006(H) <100 pg/mL [facility] 06/20/2025 9:37 PM EDT 06/20/2025 9:40 PM EDT us Generic External Data Provider LAB BLOOD ORDERAB LES Final Result Performing Organization Address [facility] Co de Phone Number [facility] [address] [place] [phone] * Influenza A B2 ID NOW ([place]) (06/20/2025 6:41 PM EDT) IDNOW SERIAL# [id number] [facility] Influenza A Negative Negative [facility] Influenza B2 Negative Negative [facility] Influenza A B2 Note See Note [facility] Comment:The [place] ID NOW In [...] GENERAL ORDERABLES Final Result Performing Organization Address [facility] Co de Phone Number [facility] [address] [place] [address] [phone] * COVID-19 ID NOW ([place]) (06/20/2025 6:41 PM EDT) IDNOW SERIAL# [id number] [facility] COVID-19 TEST Negative Negative [facility] COVID-19 NOTE See Note [facility] Comment: Results are for the identification of SARS-CoV2 RNA. TheSARS-CoV2 RNA is generally detectable in respiratory samplesduring the acute phase of infection. Positive results areindicative of the presence of SARS-CoV-2 RNA; clinicalcorrelation with patient history and other diagnosticinformation is necessary to determine patient infectionstatus. Positive results do not rule out bacterial infectionor co- infection with other viruses.Testing facilities within the [facility] and itsterritories are required to report all [...] GNOSTICS ORDERABLES Final Result Performing Organization Address [facility]/ZIP Co de Phone Number [facility] [address] [place] [address] [phone] * (ABNORMAL) CBC auto differential (06/20/2025 6:41 PM EDT) Only the most recent of2 resultswithin the time period is included. White Blood Count 8.4 4.8 - 10.8 X10*3/uL [facility] Red Blood Count 4.32(L) 4.60 - 5.80 X10*6/uL [facility] Hemoglobin 13.1(L) 14.0 - 18.0 g/dl [facility] Hematocrit 40.1(L) 42.0 - 52.0 % [facility] Mean Corpuscular Volume 92.8 80.0 - 98.0 fL [facility] Mean Corpuscular Hemoglobin 30.3 27.0 - 33.0 pg [facility] Mean Corpuscular HGB Conc 32.7 31.0 - 36.0 g/dl [facility] Red Cell Distribution Width 17.5(H) 11.0 - 16.0 % [facility] Platelet Count 179 160 - 400 X10*3/uL [facility] Mean Platelet Volume 10.5 9.4 - 12.4 fL [facility] Neutrophils Percent Auto 71.5 45 - 73 % [facility] Imm Gran Pct Auto 0.2 0.0 - 0.4 % [facility] Lymphocytes Percent Auto 17.6(L) 20 - 40 % [facility] Monocytes Percent Auto 9.4 2 - 11 % [facility] Eosinophils Percent Auto 0.8 0 - 4 % [facility] Basophils Percent Auto 0.5 0 - 2 % [facility] NRBC Pct Auto 0.0 0.0 - 0.2 /100WBC [facility] Neutrophils Absolute Auto 6.0 2.0 - 8.3 x10*3/uL [facility] Imm Gran Abs Auto 0.02 0.00 - 0.03 X10*3/uL [facility] Lymphocytes Absolute Auto 1.5 1.2 - 4.9 X10*3/uL [facility] Monocytes Absolute Auto 0.8 0.1 - 1.2 X10*3/uL [facility] Eosinophils Absolute Auto 0.1 0.0 - 0.4 X10*3/uL [facility] Basophils Absolute Auto 0.0 0.0 - 0.2 X10*3/uL [facility] NRBC Abs Auto 0.000 0.0 - 0.012 X10*3/uL [facility] 06/20/2025 6:41 PM EDT 06/20/2025 6:45 PM EDT us Generic External Data Provider LAB BLOOD ORDERAB LES Final Result [facility] [address], [place] [phone] * (ABNORMAL) Comprehensive Metabolic Panel (06/20/2025 6:41 PM EDT) Sodium 140 135 - 145 mmol/L [facility] Potassium 5.1 3.3 - 5.1 mmol/L [facility] Comment:Mild Hemolysis.Inter pret result with caution Chloride 111(H) 96 - 108 mmol/L [facility] Carbon Dioxide 20(L) 22 - 29 mmol/L [facility] Anion Gap 14 12 - 20 [facility] Urea Nitrogen (BUN) 18(H) 9 - 16 mg/dL [facility] Creatinine, Serum 0.73 0.5 - 1.4 mg/dL [facility] Creatinine Clr Calc Pharmacy 93.0 [facility] Comment:eGFR (calculated fro m the MDRD study equation) and eCrCl(calculated from the Cockcroft-Gault equation) are based ondifferent parameters and may not yield comparable results.If eCrCl result is absurd, please check patient'sheight/weight. Estimated Glomerular Filt Rate >60 [facility] Comment:Chronic Kidney Disea se: Estimated GFR < 60 mL/min/[id number] Kidney Disease: Estimated GFR < 15 mL/min/1.73m2 Glucose 119(H) 60 - 115 mg/dL [facility] Calcium 9.0 8.4 - 10.2 mg/dL [facility] Bilirubin, Total 1.8(H) 0.0 - 1.0 mg/dL [facility] Aspartate Amino Transferase 52(H) 5 - 37 U/L [facility] Comment:Mild Hemolysis.Inter pret result with caution Alanine Aminotransferase 41(H) 0 - 40 U/L [facility] Total Protein 7.1 6.5 - 8.0 g/dL [facility] Comment:Mild Hemolysis.Inter pret result with caution Albumin Level 4.0 3.5 - 5.0 g/dL [facility] Alkaline Phosphatase 64 39 - 117 U/L [facility] 06/20/2025 6:41 PM EDT 06/20/2025 6:45 PM EDT Generic External Data Provider LAB BLOOD ORDERAB LES Final Result Performing Organization Address City/State/[facility] Co de Phone Number [facility] [address] [place] [phone] * POCT HGB A1C (06/08/2025 11:31 [...] Media Lot # [id number] Lot# Expiration Date Blood Capillary blood specimen / Unknown 06/08/2025 11:30 AM EDT Farrah Jackson DO POINT OF CARE TEST ENTER/NILESH T ORDERABLES Final Result * CT Abdomen Pelvis w/ Contrast (05/30/2025 2:12 AM EDT) Anatomical Region Laterality Modality Body, Pelvis, Abdomen Computed T omography 05/30/2025 2:12 AM EDT Narrative 05/30/2025 2:14 AM EDT [address] [address] [address] Scan Report Signed Patient: Sonny Curiel MR#: [id number] : 1960 Acct:[id number] Age/Sex: 64 / M ADM Date: 05/29/25 Loc: HO.ED Attending Dr: Ordering Physician: Deepa Noe DO Date of Service: 05/30/25 Procedure(s): CT abdomen pelvis w IV con Accession Number(s): [id number] cc: Deepa Noe DO; Farrah Jackson DO Report Number: [id number]: Total DLP = 467.00 mGy-cm CLINICAL HISTORY: RLQ abd pain eval for appy --- Additional Notes or Special Instructions: oral contrast started at 2220. jat CT abdomen and pelvis with contrast Comparison: CT - CT ABDOMEN PELVIS W IV CON - 05/30/25 00:[address]/MI/SR - CT ABDOMEN PELVIS WITH IV CONTRAST [...] in OV> 05/30/25212 DD/ 1 TD/TT: 05/30/25211 Mold Sander: Procedure Note Donotronnieinterpreter, Image - 05/30/[address] [place] [address] [address] Scan Report Signed Patient: Emily Curiel#: [id number] : 9Acct:[id number] Age/Sex: 64 / MADM Date: 05/29/25 Loc: HO.ED Attending Dr: Ordering Physician: Deepa Noe DO Date of Service: 05/30/25 Procedure(s): CT abdomen pelvis w IV con Accession Number(s): [id number] cc: Deepa Noe DO; Farrah Jackson DO Report Number: [id number]: Total DLP = 467.00 mGy-cm CLINICAL HISTORY: RLQ abd pain eval for appy --- Additional Notes orSpecial Instructions: oral contrast started at 2220. jat CT abdomen and pelvis with contrast Comparison: CT - CT ABDOMEN PELVIS W IV CON - 05/30/25 00:[address]/MI/SR - CT ABDOMEN PELVIS WITH IV CONTRAST [...] MD on 05/30/2025 02:12:15 Dictated By: Casey Vázuqez MD Signed By: <Electronically signed by Casey Vázquez MD in OV> 05/30/25212 DD/ 1 TD/TT: 05/30/25211 Mold Sander: [facility] External Provider IMG CT PROCEDURES Final Result * (ABNORMAL) Urinalysis, Complete, with Reflex to Culture (05/29/2025 9:04 PM EDT) Color Urine Yellow [facility] Appearance Urine Clear [facility] PH 5.5 5.0 - 9.0 [facility] Glucose Urine UA >=1000(A) Negative mg/dL [facility] Urine Blood Negative Negative [facility] Specific [place] - Urine >=1.030(H) 1.005 - 1.025 [facility] Urine Protein Trace Neg-Trace mg/dL [facility] Urine Ketones 15 Negative mg/dL [facility] Nitrite Urine Negative Negative [facility] Leukocyte Esterase Urine Negative Negative [facility] RBC Urine 0-2 0 - 2 /HPF [facility] Urine WBC 0-5 0 - 5 /HPF [facility] Urine Squamous Epithelial Cell 0-2 0 - 2 /HPF [facility] Urine Bacteria None Seen None Seen [facility] Hyaline Casts, Urine 0-2 0 - 2 /LPF [facility] 05/29/2025 9:04 PM EDT 05/29/2025 9:07 PM EDT Narrative [facility] - 05/29/2025 9:37 PM EDT 2055Urine, Clean Catch Generic External Data Provider LAB URINE ORDERAB LES Final Result [facility] [address] [place] [phone] * SARS-CoV-2 RNA, Influenza A/B, and RSV RNA, Ql NAAT (05/29/2025 4:29 PM EDT) Influenza A PCR NEGATIVE Negative [facility] Influenza B PCR NEGATIVE Negative [facility] Resp Syncy Virus RNA Qual PCR NEGATIVE Negative [facility] SARS COV2 PCR NEGATIVE Negative [facility] Comment:All test results mus t [...] use by authorized laboratories.Testing performed on the [employer] GeneXpert utilizingreal-time RT-PCR.All SARS CoV2 and positive influenza A/B results arereported to [facility]. 05/29/2025 4:29 PM EDT 05/29/2025 4:35 PM EDT Generic External Data Provider LAB MICROBIOLOGY - GENERAL ORDERABLES Final Result Performing Organization Address [facility]/ZIP Co de Phone Number [facility] [address] [place] [phone] * Magnesium (05/29/2025 4:29 PM EDT) Pathologist [facility] Magnesium 1.7 1.6 - 2.6 mg/dL [facility] 05/29/2025 4:29 PM EDT 05/29/2025 4:35 PM EDT Generic External Data Provider LAB BLOOD ORDERAB LES Final Result Performing Organization Address [facility] Co de Phone Number [facility] [address] [place] [phone] * Lipase (05/29/2025 4:29 PM EDT) Pathologist [facility] Lipase 25 8 - 78 U/L [facility] 05/29/2025 4:29 PM EDT 05/29/2025 4:35 PM EDT Generic External Data Provider LAB BLOOD ORDERAB LES Final Result Performing Organization Address [facility] Co de Phone Number [facility] [address] [place] [phone] * (ABNORMAL) Hepatic Function Panel (05/29/2025 4:29 PM EDT) Bilirubin, Total 1.5(H) 0.0 - 1.0 mg/dL [facility] Bilirubin, Direct 0.5 0.0 - 0.5 mg/dL [facility] Aspartate Amino Transferase 27 5 - 37 U/L [facility] Alanine Aminotransferase 22 0 - 40 U/L [facility] Total Protein 6.9 6.5 - 8.0 g/dL [facility] Albumin Level 4.1 3.5 - 5.0 g/dL [facility] Alkaline Phosphatase 65 39 - 117 U/L [facility] 05/29/2025 4:29 PM EDT 05/29/2025 4:35 PM EDT Generic External Data Provider LAB BLOOD ORDERAB LES Final Result Performing Organization Address [facility] de Phone Number [facility] [address] [place] [phone] * (ABNORMAL) Basic Metabolic Panel (05/29/2025 4:29 PM EDT) Sodium 143 135 - 145 mmol/L [facility] Potassium 4.0 3.3 - 5.1 mmol/L [facility] Chloride 108 96 - 108 mmol/L [facility] Carbon Dioxide 26 22 - 29 mmol/L [facility] Anion Gap 13 12 - 20 [facility] Urea Nitrogen (BUN) 18(H) 9 - 16 mg/dL [facility] Creatinine, Serum 0.75 0.5 - 1.4 mg/dL [facility] Creatinine Clr Calc Pharmacy 90.1 [facility] Comment:eGFR (calculated fro m the MDRD study equation) and eCrCl(calculated from the Cockcroft-Gault equation) are based ondifferent parameters and may not yield comparable results.If eCrCl result is absurd, please check patient'sheight/weight. Estimated Glomerular Filt Rate >60 [facility] Comment:Chronic Kidney Disea se: Estimated GFR < 60 mL/min/[id number] Kidney Disease: Estimated GFR < 15 mL/min/1.73m2 Glucose 103 60 - 115 mg/dL [facility] Calcium 9.3 8.4 - 10.2 mg/dL [facility] 05/29/2025 4:29 PM EDT 05/29/2025 4:35 PM EDT us Generic External Data Provider LAB BLOOD ORDERAB LES Final Result Performing Organization Address [facility] Co de Phone Number [facility] [address] [place] [phone] * (ABNORMAL) Albumin, Random Urine W/Creatinine (04/21/2024 10:01 AM EDT) Creatinine, Urine 80.22 mg/dL [facility] Microalbumin Urine 34.0 mg/L [facility] Microalbum Creatinine Ratio Ur 42.3(H) <30 ug/mg cr [facility] Comment:Albumin/Creatinine R atio Reference Ranges: Normal: < 30 ug/mg creatinine Microalbuminuria: 30 - 300 ug/mg creatinineClinical Albuminuria: > 300 ug/mg creatinine Urine (Urine, Random) 04/21/2024 10:01 AM EDT 04/21/2024 11:10 AM EDT us Farrah Jackson DO LAB URINE ORDERABLES Final R esult Performing Organization Address [facility]/ZIP Co de Phone Number [facility] [address] [place] [phone] * (ABNORMAL) Lipid Panel, Standard (04/21/2024 10:01 AM EDT) Triglycerides 98 <150 mg/dL [facility] Comment:Desirable Triglyceri de: less than 150 mg/dLBorderline High Triglyceride 150-199 mg/dLHigh Triglyceride: 200-499 mg/dLVery High Triglyceride: greater than or equal to 5OO mg/dL Cholesterol 96 <200 mg/dL [facility] Comment:Desirable Cholestero l: less than 200 mg/dLBorderline High Cholesterol: 200-239 mg/dLHigh Cholesterol: greater than 239 mg/dL LDL Cholesterol Calculated 43 <100 mg/dL [facility] Comment:Desirable LDL: less than 100 mg/dLNear Optimal/Above Optimal LDL: 110- 129 mg/dLBorderline High LDL: 130-159 mg/dLHigh LDL: 160-189 mg/dLVery High LDL: greater than or equal to 190 mg/dL HDL Cholesterol 34(L) >40 mg/dL [facility] Comment:Desirable HDL: great er than 40 mg/dL Note: This HDL assay may give artificially low results in patients with liver disease. Blood Venous blood specimen / Unknown 04/21/2024 10:01 AM EDT 04/21/2024 11:11 AM EDT us Farrah Jackson DO LAB BLOOD ORDERABLES Final R esult [facility] [address] [place] [phone] * Cologuard?? colon cancer screening (08/26/2023 12:36 PM EDT) Cologuard Result Negative Negative 09/02/20 1:54 AM EST [facility] (CLIA #:[id number]) Comment: NEGATIVE TEST RESULT. A negative Cologuard [...] (Liang Champion al, N Engl J Med 2014;370(14):9117-3864) The normal value (reference range) for this assay is negative. COLOGUARD RE-SCREENING RECOMMENDATION: Periodic colorectal cancer screening is an important part of preventive healthcare for asymptomatic individuals at average risk for colorectal cancer. Following a negative Cologuard result, the [place] [employer] and U.S. Multi-Society Task Force screening guidelines recommend a Cologuard re-screening interval of 3 years. References: [place] [employer] Guideline for Colorectal Cancer Screening: https://www.cancer.org/cancer/cyolo-vvqwfl-xeyfle/bptpysdmk-lgvvflote-ncgwgrn/ac s-rec ommendations.html.; Matty YOUNG, Krys [place], Shelton CoreaK, Colorectal Cancer Screening: Recommendations for Physicians and Patients from the U.S. Multi-Society Task Force on Colorectal Cancer Screening , Am J Gastroenterology 2017; 112:5813-6601. TEST DESCRIPTION: Composite algorithmic analysis of stool [...] Toussaint et al, N Engl J Med 2014;370(14):2510-4260.) Cologuard may produce a false negative or false positive result (no colorectal cancer or precancerous polyp present at colonoscopy follow up). A negative Cologuard test result does not guarantee the absence of CRC or advanced adenoma (pre-cancer). The current Cologuard screening interval is every 3 years. ([place] [employer] and U.S. Multi-Society Task Force). Cologuard performance data in a 10,000 patient pivotal study using colonoscopy as the reference method can be accessed at the following location: www.CorkCRM/results. Additional description of the Cologuard test process, warnings and precautions can be found at www.ArsanisogCookapprd.Skillz. Stool specimen (specimen) 08/26/2023 12:36 PM EDT 08/27/2023 6:19 PM EDT Farrah Jackson DO LAB MOLECULAR DIAGNOSTICS OR DERABLES Final Result [facility] (CLIA #:[id number]) [address]a [address] [place] [address], * Hepatitis C Antibody with Reflex to HCV RNA,PCR w/Reflex to Genotype, [facility] (02/10/2023 12:11 PM EDT) Hepatitis C Antibody NON-REACT EYAD NON-REACT EYAD [email or web address] Index 0.08 <1.00 [facility] [place] [email or web address] Comment: HCV antibody was non-reactive. There is no laboratory evidence of HCV infection. In most cases, no further action is required. However, if recent HCV exposure is suspected, a test for HCV RNA (test code 04015) is suggested. For additional information, please refer to http://education.Travee/faq/ZJB501 (This link is being provided for informational/ educational purposes only.) 02/10/2023 12:1 1 PM EDT 02/10/2023 12:13 PM EDT Narrative [facility] - 02/11/2023 7:21 PM EDT FASTING:NO FASTING: NO Farrah Jackson DO LAB BLOOD ORDERABLES Final R esult [facility] [address], [place] [address] [employer] [facility] [address] [place] [address] from Last 3 Months or Most Recently Relevant to Health Maintenance Insurance [address] [place] [address] [facility] LONGTERM OPTIONS (HMO D-SNP) DENTAL - [facility] Care Teams Second Baker Relationship Specialty Start Date End Date Farrah Jackson DO [address] [place] [phone] PCP - General Family Medicine 10/25/18
== END 2025-07-03 14:23 | disposition home or self-care (01) ==
LOC: HO.HPS 13:44
PROVIDERS: PCP Family Medicine; Visit Provider Hospitalist
DX: G47.33 Obstructive sleep apnea (adult) (pediatric) (principal); I42.8 Other cardiomyopathies; Z95.810 Presence of automatic (implantable) cardiac defibrillator; R00.0 Tachycardia, unspecified; J41.0 Simple chronic bronchitis
CPT/HCPCS: 99214; G2211

== ENCOUNTER → 2025-07-03 13:44 | Outpatient (BNVA) | payer OTHER, SELFPAY | PROVIDERS: PCP Family Medicine; Visit Provider Hospitalist | DX: G47.33 Obstructive sleep apnea (adult) (pediatric) (principal); I42.8 Other cardiomyopathies; Z95.810 Presence of automatic (implantable) cardiac defibrillator; R00.0 Tachycardia, unspecified; J41.0 Simple chronic bronchitis; E78.5 Hyperlipidemia, unspecified | CPT/HCPCS: 99212 ==

== ENCOUNTER → 2025-07-11 19:30 | Outpatient (REF) | payer OTHER, SELFPAY ==
--- OUTSIDE RECORDS SUMMARY | 2025-07-11 22:11 | XMS_ITS | Encounter Summary ---
Author Organization [employer] Address [address] [place] [address] Care Team Providers Care Rig Supervisor Name Role Phone Meagan Jacksonfer Primary Care Provider + [phone] Reason for Visit * Reason Comments Med Refill Encounter Details Date Type Department Care Team ([facility] Contact Info) Description 11/19/2023 Refill [facility] [address] [place], [place] [phone] Juana Wilson MD [address] [place], [place] [phone] Social History Tobacco Use Types Packs/Day Years [...] Care Team (Late st Contact Info) Description 07/16/2025 12:00 PM EDT Office Visit [facility] [address] [place] [address] Farrah Jackson DO [address] [place] [address] 09/10/2025 1:00 PM EST Office Visit [facility] [address] [place] [address] Tarka, Marie, OD [address] [place] [address] documented as of this encounter Visit Diagnoses Not on filedocumented in this encounter Care Teams Rig Supervisor Relationship Specialty Start Date End Date Farrah Jackson DO [address] [place] [address] PCP - General Family Medicine 10/25/18 documented as of this encounter
--- OUTSIDE RECORDS SUMMARY | 2025-07-11 22:11 | XMS_ITS | Encounter Summary ---
Author Organization [employer] Address [address] [facility] [address] [place] [address] Care Team Providers Care Shoe Folder Name Role Phone Farrah Jackson DO Primary Care Provider + [phone] Reason for Visit * Reason Onset Date Comments Nurse Triage 12/28/2023 Encounter Details Date Type Department Care Team ([facility] st Contact Info) Description 12/28/2023 Telephone [facility] [address] [place], [place] [phone] Farrah Jackson DO [address] [place], [place] [phone] Nurse Triage Social History Tobacco Use Types [...] for UTI. Pt is advised to come [facility] for provider to see Pt. Pt insurance is not active at this time and Pt is waiting for medicare to start. Advised to stop at senior front end engineer to speak about insurance before going to [facility] . Pt agreed with disposition and [...] accepted this outcome Please contact pt at [phone] documented in this encounter Plan of Treatment Upcoming Encounters Date Type Department Care Team ([facility]ores Contact Info) Description 07/16/2025 12:00 PM EDT Office Visit [facility] [address] [place] [address] Farrah Jackson DO [address] [place] [address] 09/10/2025 1:00 PM EST Office Visit [facility] [address] [place], [place] [phone] Marie Zhao, OD [address] [place] [address] documented as of this encounter Visit Diagnoses Not on filedocumented in this encounter Care Teams Shoe Folder Relationship Specialty Start Date End Date Farrah Jackson DO [address] [place] [address] PCP - General Family Medicine 10/25/18 documented as of this encounter
--- OUTSIDE RECORDS SUMMARY | 2025-07-11 22:11 | XMS_ITS | Encounter Summary ---
Author Organization [email or web address] Address [address] [place] [address] Care Team Providers Care Relay Worker Name Role Phone Farrah Jackson DO Primary Care Provider + [phone] Encounter Details Date Type Department Care Team (Late Contact Info) Description 01/15/2023 Orders Only [facility] [address] [place], [place] [phone] Farrah Baird LPN Social History Tobacco Use [...] Encounters Date Type Department Care Team (Late Contact Info) Description 07/16/2025 12:00 PM EDT Office Visit [facility] [address] [place] [address] Farrah Jackson DO [address] [place], [place] [phone] 09/10/2025 1:00 PM EST Office Visit [facility] [address] [place] [address] Marie Zhao, OD [address] [place], [place] [phone] documented as of this encounter Visit Diagnoses Not on filedocumented in this encounter Care Teams Relay Worker Relationship Specialty Start Date End Date Farrah Jackson DO [address] [place] [phone] PCP - General Family Medicine 10/25/18 documented as of this encounter
--- OUTSIDE RECORDS SUMMARY | 2025-07-11 22:11 | XMS_ITS | Clinical Summary ---
Author Organization [facility] Address [address] [address] Phone Care Team Providers Care Regional Operations Manager Name Role Phone KrissyFarrah knight Primary Care [...] on file Insurance GENERIC COMMERCIAL [place] NGOZI [id number] GENERIC COMMERCIAL [place] NGOZI [id number] GENERIC COMMERCIAL MD NGOZI [id number] GENERIC COMMERCIAL MD NGOZI [id number] GENERIC COMMERCIAL MD NGOZI [id number] GENERIC COMMERCIAL [place] NGOZ[place] [id number] GENERIC COMMERCIAL [place] NGOZI [id number] GENERIC COMMERCIAL GENERIC COMMERCIAL Care Teams Regional Operations Manager Relationship Specialty Start Date End Date Farrah Jackson DO [address] [place] [address] PCP - General Family Medicine 01/06/19 Additional Source Comments The information contained in this document represents components of the legal health record. It is not the complete legal health record.[facility]
--- OUTSIDE RECORDS SUMMARY | 2025-07-11 22:11 | XMS_ITS | Clinical Summary ---
Author Organization [employer] Address [address] [facility] [address] [place] [address] Care Team Providers Care Intranet Developer Name Role Phone Farrah Jackson DO Primary Care Provider + [phone] Allergies Active Allergy Reactions Criticality Noted Date [...] without long-term current use of insulin ([facility]) USE DIRECTED TO TEST BLOOD SUGAR TWICE [...] Department Care Team Description 06/22/2025 Patient Outreach [facility] [address] [place] [phone] Farrah Jackson DO Transition Of Care (Tcm) (HDF- patient denied ) 06/20/2025 Orders Only GENERIC EXTERNAL DATA DEPARTMENT Provider, Generic External Data 06/08/2025 11:30 AM EDT Office Visit [address] [address] Farrah Jackson DO Type 2 diabetes mellitus with microalbuminuria, without long-term current use of insulin ([facility]) 06/08/2025 Travel 06/07/[address] [address] Farrah Jackson DO chart prep 05/30/2025 Patient Outreach [address] [address] Farrah Jackson DO Pre-visit Planning (SDOH screening negative and tobacco screening negative) 05/30/2025 Refill [facility] [address] [place] [address] Farrah Jackson DO Primary hypertension 05/29/2025 Orders Only [facility] External Provider, [facility] 05/25/2025 Telephone [facility] [address] [place] [address] Farrah Jackson DO Appointment Request 05/25/2025 Travel 05/08/2025 9:20 AM EDT Office Visit [facility] [address] [place] [address] Hilario, Lor, OD Type 2 diabetes mellitus with diabetic microalbuminuria, without long-term current use of insulin ([facility]) (Primary Dx) 05/08/2025 Telephone [facility] [address] [place] [address] Farrah Jackson DO Med Refill 05/08/2025 Travel 04/29/2025 Refill [facility] [address] [place] [address] Farrah Jackson DO from Last 3 Months Immunizations Immunization Administration [...] Description 07/16/2025 12:00 PM EDT Office Visit [facility] [address] [place] [address] Farrah Jackson DO [address] [place] [address] 09/10/2025 1:00 PM EST Office Visit [facility] [address] [place] [address] Marie Zhao, OD [address] [place] [address] Health Maintenance Due Date Last Done Comments [...] 04/21/2025 04/21/2024, 01/23, 07/10/2022, Additional history exists COVID-19 Vaccine ( [...] without long-term current use of insulin ([facility]) POCT GLUCOSE Routine 06/08/2025 11:30 AM EDT Type 2 diabetes mellitus with microalbuminuria, without long-term current use of insulin ([facility]) CT ABDOMEN PELVIS W CONTRAST Routine 05/30/2025 [...] PM EDT Narrative 06/20/2025 10:44 PM EDT [address] [address] XRay Report Signed Patient: Sonny Curiel MR#: [id number] : 1960 Acct:[id number] Age/Sex: 64 / M ADM Date: 06/20/25 Loc: HO.ED Attending Dr: Ordering Physician: Tamiko Luna MD Date of Service: 06/20/25 Procedure(s): XR chest 2V Accession Number(s): [id number] cc: Tamiko Luna MD; Farrah Jackson DO CLINICAL HISTORY: sob --- Additional Notes or Special Instructions: with doctor-09:21pm Chest X-ray, 2 Views COMPARISON: CR/SR - XR CHEST 2 VIEWS - 05/29/25 16:16 EDT CR - XR CHEST 2V - 03/17/25 11:07 EDT CR/NE/SR - XR CHEST 2V - 12/19/22 11:51 [...] in OV> 06/20/252242 DD/ 41 TD/TT: 06/20/252241 Rn Palliative: Procedure Note Donotuseinterpreter, Image - 06/20/[address] [address] XRay Report Signed Patient: Emily Curiel#: [id number] : 9Acct:[id number] Age/Sex: 64 / MADM Date: 06/20/25 Loc: HO.ED Attending Dr: Ordering Physician: Tamiko Luna MD Date of Service: 06/20/25 Procedure(s): XR chest 2V Accession Number(s): [id number] cc: Tamiko Luna MD; Farrah Jackson DO CLINICAL HISTORY: sob --- Additional Notes or Special Instructions: withdoctor-09:21pm Chest X-ray, 2 Views COMPARISON: CR/SR - XR CHEST 2 VIEWS - 05/29/25 16:16 EDT CR - XR CHEST 2V - 03/17/25 11:07 EDT CR/NE/SR - XR CHEST 2V - 12/19/22 11:51 [...] in OV> 06/20/252242 DD/ 41 TD/TT: 06/20/252241 Rn Palliative: [facility] External Provider IMG XR PROCEDURES Edited Result - Final * High Sensitivity Troponin I (06/20/2025 9:37 PM EDT) Only the most recent of3 resultswithin the time period is included. TROPONIN I HIGH SENSITIVITY 11.7 <3.5 - 35.0 ng/L [facility] Comment:The [place] high sens itivity Troponin-I results should beused in conjunction with other diagnostic information suchas ECG, clinical observations and information, and patientsymptoms to aid in the diagnosis of DC. 06/20/2025 9:37 PM EDT 06/20/2025 9:40 PM EDT Generic External Data Provider LAB BLOOD ORDERAB LES Final Result Performing Organization Address [facility]/ZIP Co de Phone Number [facility] [address] [place] [phone] * (ABNORMAL) B Type Natriuretic Peptide (BNP) (06/20/2025 9:37 PM EDT) Only the most recent of2 resultswithin the time period is included. B Type Natriuretic Peptide 3,006(H) <100 pg/mL [facility] 06/20/2025 9:37 PM EDT 06/20/2025 9:40 PM EDT Generic External Data Provider LAB BLOOD ORDERAB LES Final Result Performing Organization Address [facility] Co de Phone Number [facility] [address] [place] [phone] * Influenza A B2 ID NOW ([place]) (06/20/2025 6:41 PM EDT) IDNOW SERIAL# [id number] [facility] Influenza A Negative Negative [facility] Influenza B2 Negative Negative [facility] Influenza A B2 Note See Note [facility] Comment:The [place] ID NOW In [...] GENERAL ORDERABLES Final Result Performing Organization Address [facility] Co de Phone Number [facility] [address] [place] [phone] * COVID-19 ID NOW (IRV[place]) (06/20/2025 6:41 PM EDT) IDNOW SERIAL# [id number] [facility] COVID-19 TEST Negative Negative [facility] COVID-19 NOTE See Note [facility] Comment: Results are for the identification of SARS-CoV2 RNA. TheSARS-CoV2 RNA is generally detectable in respiratory samplesduring the acute phase of infection. Positive results areindicative of the presence of SARS-CoV-2 RNA; clinicalcorrelation with patient history and other diagnosticinformation is necessary to determine patient infectionstatus. Positive results do not rule out bacterial infectionor co- infection with other viruses.Testing facilities within the [facility] and [facility] are required to report all positive results [...] GNOSTICS ORDERABLES Final Result Performing Organization Address [facility]/ZIP Co de Phone Number [facility] [address] [place] [address] [phone] * (ABNORMAL) CBC auto differential (06/20/2025 6:41 PM EDT) Only the most recent of2 resultswithin the time period is included. White Blood Count 8.4 4.8 - 10.8 X10*3/uL [facility] Red Blood Count 4.32(L) 4.60 - 5.80 X10*6/uL [facility] Hemoglobin 13.1(L) 14.0 - 18.0 g/dl [facility] Hematocrit 40.1(L) 42.0 - 52.0 % [facility] Mean Corpuscular Volume 92.8 80.0 - 98.0 fL [facility] Mean Corpuscular Hemoglobin 30.3 27.0 - 33.0 pg [facility] Mean Corpuscular HGB Conc 32.7 31.0 - 36.0 g/dl [facility] Red Cell Distribution Width 17.5(H) 11.0 - 16.0 % [facility] Platelet Count 179 160 - 400 X10*3/uL [facility] Mean Platelet Volume 10.5 9.4 - 12.4 fL [facility] Neutrophils Percent Auto 71.5 45 - 73 % [facility] Imm Gran Pct Auto 0.2 0.0 - 0.4 % [facility] Lymphocytes Percent Auto 17.6(L) 20 - 40 % [facility] Monocytes Percent Auto 9.4 2 - 11 % [facility] Eosinophils Percent Auto 0.8 0 - 4 % [facility] Basophils Percent Auto 0.5 0 - 2 % [facility] NRBC Pct Auto 0.0 0.0 - 0.2 /100WBC [facility] Neutrophils Absolute Auto 6.0 2.0 - 8.3 x10*3/uL [facility] Imm Gran Abs Auto 0.02 0.00 - 0.03 X10*3/uL [facility] Lymphocytes Absolute Auto 1.5 1.2 - 4.9 X10*3/uL [facility] Monocytes Absolute Auto 0.8 0.1 - 1.2 X10*3/uL [facility] Eosinophils Absolute Auto 0.1 0.0 - 0.4 X10*3/uL [facility] Basophils Absolute Auto 0.0 0.0 - 0.2 X10*3/uL [facility] NRBC Abs Auto 0.000 0.0 - 0.012 X10*3/uL [facility] 06/20/2025 6:41 PM EDT 06/20/2025 6:45 PM EDT us Generic External Data Provider LAB BLOOD ORDERAB LES Final Result [facility] [address] [place] [address] [phone] * (ABNORMAL) Comprehensive Metabolic Panel (06/20/2025 6:41 PM EDT) Sodium 140 135 - 145 mmol/L [facility] Potassium 5.1 3.3 - 5.1 mmol/L [facility] Comment:Mild Hemolysis.Inter pret result with caution Chloride 111(H) 96 - 108 mmol/L [facility] Carbon Dioxide 20(L) 22 - 29 mmol/L [facility] Anion Gap 14 12 - 20 [facility] Urea Nitrogen (BUN) 18(H) 9 - 16 mg/dL [facility] Creatinine, Serum 0.73 0.5 - 1.4 mg/dL [facility] Creatinine Clr Calc Pharmacy 93.0 [facility] Comment:eGFR (calculated fro m the MDRD study equation) and eCrCl(calculated from the Cockcroft-Gault equation) are based ondifferent parameters and may not yield comparable results.If eCrCl result is absurd, please check patient'sheight/weight. Estimated Glomerular Filt Rate >60 [facility] Comment:Chronic Kidney Disea se: Estimated GFR < 60 mL/min/1.14g7[place] Kidney Disease: Estimated GFR < 15 mL/min/1.73m2 Glucose 119(H) 60 - 115 mg/dL [facility] Calcium 9.0 8.4 - 10.2 mg/dL [facility] Bilirubin, Total 1.8(H) 0.0 - 1.0 mg/dL [facility] Aspartate Amino Transferase 52(H) 5 - 37 U/L [facility] Comment:Mild Hemolysis.Inter pret result with caution Alanine Aminotransferase 41(H) 0 - 40 U/L [facility] Total Protein 7.1 6.5 - 8.0 g/dL [facility] Comment:Mild Hemolysis.Inter pret result with caution Albumin Level 4.0 3.5 - 5.0 g/dL [facility] Alkaline Phosphatase 64 39 - 117 U/L [facility] 06/20/2025 6:41 PM EDT 06/20/2025 6:45 PM EDT Generic External Data Provider LAB BLOOD ORDERAB LES Final Result Performing Organization Address City/State/[facility] Co de Phone Number [facility] [address] [place] [phone] * POCT HGB A1C (06/08/2025 11:31 [...] Media Lot # [id number] Lot# Expiration Date 099 Blood Capillary blood specimen / Unknown 06/08/2025 11:30 AM EDT us Farrah Jackson DO POINT OF CARE TEST ENTER/NILESH T ORDERABLES Final Result * CT Abdomen Pelvis w/ Contrast (05/30/2025 2:12 AM EDT) Anatomical Region Laterality Modality Body, Pelvis, Abdomen Computed T omography 05/30/2025 2:12 AM EDT Narrative 05/30/2025 2:14 AM EDT [place] [address] [address] Scan Report Signed Patient: Sonny Curiel MR#: [id number] : 1960 Acct:[id number] Age/Sex: 64 / M ADM Date: 05/29/25 Loc: HO.ED Attending Dr: Ordering Physician: Deepa Noe DO Date of Service: 05/30/25 Procedure(s): CT abdomen pelvis w IV con Accession Number(s): [id number] cc: Deepa Noe DO; Farrah Jackson DO Report Number: [id number]: Total DLP = 467.00 mGy-cm CLINICAL HISTORY: RLQ abd pain eval for appy --- Additional Notes or Special Instructions: oral contrast started at 2220. jat CT abdomen and pelvis with contrast Comparison: CT - CT ABDOMEN PELVIS W IV CON - 05/30/25 00:[address]/NE/SR - CT ABDOMEN PELVIS WITH IV CONTRAST [...] in OV> 05/30/25212 DD/ 1 TD/TT: 05/30/25211 Rn Palliative: Procedure Note Donotuseinterpreter, Image - 05/30/[address] [address] [address] Scan Report Signed Patient: Emily Curiel#: [id number] : 9Acct:[id number] Age/Sex: 64 / MADM Date: 05/29/25 Loc: .ED Attending Dr: Ordering Physician: Deepa Noe DO Date of Service: 05/30/25 Procedure(s): CT abdomen pelvis w IV con Accession Number(s): [id number] cc: Deepa Noe DO; Farrah Jackson DO Report Number: [id number]: Total DLP = 467.00 mGy-cm CLINICAL HISTORY: RLQ abd pain eval for appy --- Additional Notes orSpecial Instructions: oral contrast started at 2220. jat CT abdomen and pelvis with contrast Comparison: CT - CT ABDOMEN PELVIS W IV CON - 05/30/25 00:[address]/NE/SR - CT ABDOMEN PELVIS WITH IV CONTRAST [...] in OV> 05/30/25212 DD/ 1 TD/TT: 05/30/25211 Rn Palliative: [facility] External Provider IMG CT PROCEDURES Final Result * (ABNORMAL) Urinalysis, Complete, with Reflex to Culture (05/29/2025 9:04 PM EDT) Color Urine Yellow [facility] Appearance Urine Clear [facility] PH 5.5 5.0 - 9.0 [facility] Glucose Urine UA >=1000(A) Negative mg/dL [facility] Urine Blood Negative Negative [facility] Specific [place] - Urine >=1.030(H) 1.005 - 1.025 [facility] Urine Protein Trace Neg-Trace mg/dL [facility] Urine Ketones 15 Negative mg/dL [facility] Nitrite Urine Negative Negative [facility] Leukocyte Esterase Urine Negative Negative [facility] RBC Urine 0-2 0 - 2 /HPF [facility] Urine WBC 0-5 0 - 5 /HPF [facility] Urine Squamous Epithelial Cell 0-2 0 - 2 /HPF [facility] Urine Bacteria None Seen None Seen [facility] Hyaline Casts, Urine 0-2 0 - 2 /LPF [facility] 05/29/2025 9:04 PM EDT 05/29/2025 9:07 PM EDT Narrative [facility] - 05/29/2025 9:37 PM EDT 2055Urine, Clean Catch Generic External Data Provider LAB URINE ORDERAB LES Final Result [facility] [address] [place] [address] [phone] * SARS-CoV-2 RNA, Influenza A/B, and RSV RNA, Ql NAAT (05/29/2025 4:29 PM EDT) Influenza A PCR NEGATIVE Negative [facility] Influenza B PCR NEGATIVE Negative [facility] Resp Syncy Virus RNA Qual PCR NEGATIVE Negative [facility] SARS COV2 PCR NEGATIVE Negative [facility] Comment:All test results mus t be [...] use by authorized laboratories.Testing performed on the [employer] GeneXpert utilizingreal-time RT-PCR.All SARS CoV2 and positive influenza A/B results arereported to [facility]. 05/29/2025 4:29 PM EDT 05/29/2025 4:35 PM EDT Generic External Data Provider LAB MICROBIOLOGY - GENERAL ORDERABLES Final Result Performing Organization Address [facility] Co de Phone Number [facility] [address] [place] [phone] * Magnesium (05/29/2025 4:29 PM EDT) Pathologist [facility] Magnesium 1.7 1.6 - 2.6 mg/dL [facility] 05/29/2025 4:29 PM EDT 05/29/2025 4:35 PM EDT Generic External Data Provider LAB BLOOD ORDERAB LES Final Result Performing Organization Address [facility] Co de Phone Number [facility] [address] [place] [phone] * Lipase (05/29/2025 4:29 PM EDT) Lipase 25 8 - 78 U/L [facility] 05/29/2025 4:29 PM EDT 05/29/2025 4:35 PM EDT us Generic External Data Provider LAB BLOOD ORDERAB LES Final Result Performing Organization Address City/[facility]/ZIP Co de Phone Number [facility] [address] [place] [phone] * (ABNORMAL) Hepatic Function Panel (05/29/2025 4:29 PM EDT) [facility] Bilirubin, Total 1.5(H) 0.0 - 1.0 mg/dL [facility] Bilirubin, Direct 0.5 0.0 - 0.5 mg/dL [facility] Aspartate Amino Transferase 27 5 - 37 U/L [facility] Alanine Aminotransferase 22 0 - 40 U/L [facility] Total Protein 6.9 6.5 - 8.0 g/dL [facility] Albumin Level 4.1 3.5 - 5.0 g/dL [facility] Alkaline Phosphatase 65 39 - 117 U/L [facility] 05/29/2025 4:29 PM EDT 05/29/2025 4:35 PM EDT us Generic External Data Provider LAB BLOOD ORDERAB LES Final Result Performing Organization Address [facility]/ZIP Co de Phone Number [facility] [address] [place] [phone] * (ABNORMAL) Basic Metabolic Panel (05/29/2025 4:29 PM EDT) [facility] Sodium 143 135 - 145 mmol/L [facility] Potassium 4.0 3.3 - 5.1 mmol/L [facility] Chloride 108 96 - 108 mmol/L [facility] Carbon Dioxide 26 22 - 29 mmol/L [facility] Anion Gap 13 12 - 20 [facility] Urea Nitrogen (BUN) 18(H) 9 - 16 mg/dL [facility] Creatinine, Serum 0.75 0.5 - 1.4 mg/dL [facility] Creatinine Clr Calc Pharmacy 90.1 [facility] Comment:eGFR (calculated fro m the MDRD study equation) and eCrCl(calculated from the Cockcroft-Gault equation) are based ondifferent parameters and may not yield comparable results.If eCrCl result is absurd, please check patient'sheight/weight. Estimated Glomerular Filt Rate >60 [facility] Comment:Chronic Kidney Disea se: Estimated GFR < 60 mL/min/1.50m1Mrnhcy Kidney Disease: Estimated GFR < 15 mL/min/1.73m2 Glucose 103 60 - 115 mg/dL [facility] Calcium 9.3 8.4 - 10.2 mg/dL [facility] 05/29/2025 4:29 PM EDT 05/29/2025 4:35 PM EDT us Generic External Data Provider LAB BLOOD ORDERAB LES Final Result [facility] [address] [place] [address] [phone] * (ABNORMAL) Albumin, Random Urine W/Creatinine (04/21/2024 10:01 AM EDT) Creatinine, Urine 80.22 mg/dL [facility] Microalbumin Urine 34.0 mg/L [facility] Microalbum Creatinine Ratio Ur 42.3(H) <30 ug/mg cr [facility] Comment:Albumin/Creatinine R atio Reference Ranges: Normal: < 30 ug/mg creatinine Microalbuminuria: 30 - 300 ug/mg creatinineClinical Albuminuria: > 300 ug/mg creatinine Urine (Urine, Random) 04/21/2024 10:01 AM EDT 04/21/2024 11:10 AM EDT us Farrah Jackson DO LAB URINE ORDERABLES Final R esult Performing Organization Address City/[facility]/ZIP Co de Phone Number [facility] [address] [place] [phone] * (ABNORMAL) Lipid Panel, Standard (04/21/2024 10:01 AM EDT) Triglycerides 98 <150 mg/dL [facility] Comment:Desirable Triglyceri de: less than 150 mg/dLBorderline High Triglyceride 150-199 mg/dLHigh Triglyceride: 200-499 mg/dLVery High Triglyceride: greater than or equal to 5OO mg/dL Cholesterol 96 <200 mg/dL [facility] Comment:Desirable Cholestero l: less than 200 mg/dLBorderline High Cholesterol: 200-239 mg/dLHigh Cholesterol: greater than 239 mg/dL LDL Cholesterol Calculated 43 <100 mg/dL [facility] Comment:Desirable LDL: less than 100 mg/dLNear Optimal/Above Optimal LDL: 110- 129 mg/dLBorderline High LDL: 130-159 mg/dLHigh LDL: 160-189 mg/dLVery High LDL: greater than or equal to 190 mg/dL HDL Cholesterol 34(L) >40 mg/dL [facility] Comment:Desirable HDL: great er than 40 mg/dL Note: This HDL assay may give artificially low results in patients with liver disease. Blood Venous blood specimen / Unknown 04/21/2024 10:01 AM EDT 04/21/2024 11:11 AM EDT Farrah Jackson DO LAB BLOOD ORDERABLES Final R esult Performing Organization Address City/[facility]/ZIP Co de Phone Number [facility] [address] [place] [phone] * Cologuard?? colon cancer screening (08/26/2023 12:36 PM EDT) Cologuard Result Negative Negative 09/02/20 1:54 AM EST [employer] (CLIA #:[id number]) Comment: NEGATIVE TEST RESULT. A negative Cologuard [...] (Liang Champion al, N Engl J Med 2014;370(14):4428-3400) The normal value (reference range) for this assay is negative. COLOGUARD RE-SCREENING RECOMMENDATION: Periodic colorectal cancer screening is an important part of preventive healthcare for asymptomatic individuals at average risk for colorectal cancer. Following a negative Cologuard result, the [place] Cancer Society and U.S. Multi-Society Task Force screening guidelines recommend a Cologuard re-screening interval of 3 years. References: [place] Cancer Society Guideline for Colorectal Cancer Screening: https://www.cancer.org/cancer/bvxlg-vmbelc-zxzxja/kzdnkfpic-hqhiunbdy-tlzpoes/ac s-rec ommendations.html.; Matty DK, Krys CR, Shelton CoreaK, Colorectal Cancer Screening: Recommendations for Physicians and Patients from the U.S. Multi-Society Task Force on Colorectal Cancer Screening , Am J Gastroenterology 2017; 112:7108-0788. TEST DESCRIPTION: Composite algorithmic analysis of stool [...] (Liang Champion al, N Engl J Med 2014;370(14):8617-1276.) Cologuard may produce a false negative or false positive result (no colorectal cancer or precancerous polyp present at colonoscopy follow up). A negative Cologuard test result does not guarantee the absence of CRC or advanced adenoma (pre-cancer). The current Cologuard screening interval is every 3 years. ([place] Cancer Society and U.S. Multi-Society Task Force). Cologuard performance data in a 10,000 patient pivotal study using colonoscopy as the reference method can be accessed at the following location: www.[employer].[email or web address]/results. Additional description of the Cologuard test process, warnings and precautions can be found at www.[employer].[email or web address]. Stool specimen (specimen) 08/26/2023 12:36 PM EDT 08/27/2023 6:19 PM EDT Farrah Jackson DO LAB MOLECULAR DIAGNOSTICS OR DERABLES Final Result [facility] (CLIA #:[id number]) [place] [address], * Hepatitis C Antibody with Reflex to HCV RNA,PCR w/Reflex to Genotype, [facility] (02/10/2023 12:11 PM EDT) Hepatitis C Antibody NON-REACT EYAD NON-REACT EYAD [employer] Index 0.08 <1.00 [employer] [place] GELI Comment: HCV antibody was non-reactive. There is no laboratory evidence of HCV infection. In most cases, no further action is required. However, if recent HCV exposure is suspected, a test for HCV RNA (test code 13991) is suggested. For additional information, please refer to http://education.[employer]/faq/TKC228 (This link is being provided for informational/ educational purposes only.) 02/10/2023 12:1 1 PM EDT 02/10/2023 12:13 PM EDT Narrative [facility] - 02/11/2023 7:21 PM EDT FASTING:NO FASTING: NO us Farrah Jackson DO LAB BLOOD ORDERABLES Final R esult [facility] [address], [place] [address] Outline App [facility] [address] [place] [phone] from Last 3 Months or Most Recently Relevant to Health Maintenance Insurance [address] [place] [address] [facility] STANDARD FOR[facility]LY [facility] [employer] (HMO D-SNP) [facility]AL - [facility] [place] Care Teams Intranet Developer Relationship Specialty Start Date End Date Farrah Jackson DO [address] [place] [id number] PCP - General Family Medicine 10/25/18
--- OUTSIDE RECORDS SUMMARY | 2025-07-11 22:11 | XMS_ITS | Clinical Summary ---
Author Organization [facility] Address [address] [place] [phone] Phone Care Team Providers Care Director Of Business Services Name Role Phone Unavailable Primary Care Provider [...]
--- OUTSIDE RECORDS SUMMARY | 2025-07-11 22:12 | XMS_ITS | Encounter Summary ---
Author Organization [employer] Address [address] [place] [address] Care Team Providers Care Jewelry Store Manager Name Role Phone Farrah Jackson DO Primary Care Provider + [phone] Reason for Visit * Reason Onset Date Comments pain medication to pharmacy 05/22/2024 Encounter Details Date Type Department Care Team ([facility] st Contact Info) Description 05/22/2024 Telephone [facility] ADULT DENTAL [address] [place] [address] Farhad Knott, DMD [address] [place] [address] pain medication to pharmacy Social History Tobacco [...] Description 07/16/2025 12:00 PM EDT Office Visit [facility] MEDICINE [address] [place] [address] Farrah Jackson DO [address] [place] [address] 09/10/2025 1:00 PM EST Office Visit [facility] OPTOMETRY [address] [place] [address] Marie Zhao, OD [address] [place] [address] documented as of this encounter Visit Diagnoses Not on filedocumented in this encounter Additional Health Concerns Assessment Noted Time PHQ-9 Depression Total Score: 2 04/21/20 24 8:50 AM EDT documented as of this encounter Care Teams Jewelry Store Manager Relationship Specialty Start Date End Date Farrah Jackson DO [address] [place] [address] PCP - General Family Medicine 10/25/18 documented as of this encounter
--- OUTSIDE RECORDS SUMMARY | 2025-07-11 22:12 | XMS_ITS | Encounter Summary ---
Author Organization [facility] Address [address] [place] [address] Care Team Providers Care Ram Press Operator Name Role Phone Unavailable Primary Care Provider Unavailabl e Encounter Details Date Type Department Care Team (Late st Contact Info) Description 09/11/[address] [facility] - Main Lab [address] [place] [address] Krishna Jose MD [address] [facility] [address] [place] [phone] Elevated prostate specific antigen (PSA) Social History [...] Acute inflammation present. 09/20/2024 4:27 PM EST [facility] Gross Description A. Urine, Voided, : [id number] Recd 1 TP CYTO 09/20/2024 4:27 PM EST [facility] Disclaimer Unless otherwise specified, all tissue is 10% NB formalin fixed and paraffin embedded. 09/20/2024 4:27 PM EST [facility] Tissue Urine specimen from urethra / Unknown 09/06/2024 09/11/2024 1:13 PM EST us Krishna Jose MD LAB PATHOLOGY ORDERABLES Final Result [facility] [address] [place] [address], documented in this encounter Visit Diagnoses Diagnosis Elevated prostate specific antigen (PSA) documented in this encounter
--- OUTSIDE RECORDS SUMMARY | 2025-07-11 22:12 | XMS_ITS | Encounter Summary ---
Author Organization [employer] Address [address] [place] [address] Care Team Providers Care Fountain Supervisor Name Role Phone Farrah Jackson DO Primary Care Provider + [phone] Reason for Visit * Reason Comments Med Refill Encounter Details Date Type Department Care Team ([facility] Contact Info) Description 11/14/2023 Refill [facility] MEDICINE [address] [place], [place] [phone] Farrah Jackson DO [address] [place], [place] [phone] Social History Tobacco Use Types Packs/Day Years [...] Description 07/16/2025 12:00 PM EDT Office Visit [facility] MEDICINE [address] [place] [address] Farrah Jackson DO [address] [place] [address] 09/10/2025 1:00 PM EST Office Visit [facility] OPTOMETRY [address] [place] [address] Tarka, Marie, OD [address] [place] [address] documented as of this encounter Visit Diagnoses Not on filedocumented in this encounter Care Teams Fountain Supervisor Relationship Specialty Start Date End Date Farrah Jackson DO [address] [place] [address] PCP - General Family Medicine 10/25/18 documented as of this encounter
--- OUTSIDE RECORDS SUMMARY | 2025-07-11 22:12 | XMS_ITS | Encounter Summary ---
Author Organization [employer] Address [address] [place] [address] Care Team Providers Care Truck Greaser Name Role Phone Farrah Jackson DO Primary Care Provider + [phone] Reason for Visit * Reason Comments Med Refill Encounter Details Date Type Department Care Team ([facility] Contact Info) Description 07/10/2024 Refill [facility] MEDICINE [address] [place], [place] [phone] Farrah Jackson DO [address] [place], [place] [phone] Social History Tobacco Use Types Packs/Day Years [...] Description 07/16/2025 12:00 PM EDT Office Visit [facility] MEDICINE [address] [place] [address] Farrah Jackson DO [address] [place] [address] 09/10/2025 1:00 PM EST Office Visit [facility] OPTOMETRY [address] [place] [address] Tarka, Marie, OD [address] [place] [address] documented as of this encounter Visit Diagnoses Not on filedocumented in this encounter Additional Health Concerns Assessment Noted Time PHQ-9 Depression Total Score: 2 04/21/20 24 8:50 AM EDT documented as of this encounter Care Teams Truck Greaser Relationship Specialty Start Date End Date Farrah Jackson DO [address] [place] [phone] PCP - General Family Medicine 10/25/18 documented as of this encounter
--- OUTSIDE RECORDS SUMMARY | 2025-07-11 22:12 | XMS_ITS | Encounter Summary ---
Author Organization [employer] Address [address] [place] [address] Care Team Providers Care Gun Fertilizer Name Role Phone Meagan Jacksonfer Primary Care Provider + [phone] Reason for Visit * Reason Comments Med Refill Encounter Details Date Type Department Care Team ([facility] Contact Info) Description 01/11/2025 Refill [facility] MEDICINE [address] [place], [place] [phone] Alexsandra Luevano MD [address] [place], [place] [phone] Primary hypertension Social History Tobacco Use Types [...] Description 07/16/2025 12:00 PM EDT Office Visit [facility] MEDICINE [address] [place] [address] Farrah Jackson DO [address] [place] [address] 09/10/2025 1:00 PM EST Office Visit [facility] OPTOMETRY [address] [place] [address] Tarka Marie, OD [address] [place] [address] documented as of this encounter Visit Diagnoses Diagnosis Primary hypertension Unspecified essential hypertension documented in this encounter Additional Health Concerns Assessment Noted Time PHQ-9 Depression Total Score: 2 04/21/20 24 8:50 AM EDT documented as of this encounter Care Teams Gun Fertilizer Relationship Specialty Start Date End Date Farrah Jackson DO [address] [place] [address] PCP - General Family Medicine 10/25/18 documented as of this encounter
== END ==
LOC: HO.SL 19:30
PROVIDERS: Visit Provider Hospitalist
DX: G47.33 Obstructive sleep apnea (adult) (pediatric) (principal)
CPT/HCPCS: 95811

== ENCOUNTER → 2025-07-11 21:53 | Outpatient (BNV) | payer OTHER, SELFPAY | PROVIDERS: Visit Provider Internal Medicine | DX: G47.33 Obstructive sleep apnea (adult) (pediatric) (principal) | CPT/HCPCS: 95811 ==

== ENCOUNTER 2025-07-16 13:32 | Outpatient (REF) | payer OTHER, SELFPAY ==
--- OUTSIDE RECORDS SUMMARY | 2025-07-16 15:58 | XMS_ITS ---
[address] [place] [phone] * (ABNORMAL) Albumin, Random Urine W/Creatinine (04/21/2024 10:01 AM EDT) Creatinine, Urine 80.22 mg/dL [facility] Microalbumin Urine 34.0 mg/L H [facility] Microalbum Creatinine Ratio Ur 42.3(H) <30 ug/mg cr [facility] Comment:Albumin/Creatinine R atio Reference Ranges: Normal: < 30 ug/mg creatinine Microalbuminuria: 30 - 300 ug/mg creatinineClinical Albuminuria: > 300 ug/mg creatinine Urine (Urine, Random) 04/21/2024 10:01 AM EDT 04/21/2024 11:10 AM EDT Farrah Jackson DO LAB URINE ORDERABLES Final R esult [facility] [address] [place] [phone] * (ABNORMAL) Lipid Panel, Standard (04/21/2024 10:01 AM EDT) Triglycerides 98 <150 mg/dL [facility] Comment:Desirable Triglyceri de: less than 150 mg/dLBorderline High Triglyceride 150-199 mg/dLHigh Triglyceride: 200-499 mg/dLVery High Triglyceride: greater than or equal to 5OO mg/dL Cholesterol 96 <200 mg/dL [facility] Comment:Desirable Cholestero l: less than 200 mg/dLBorderline High Cholesterol: 200-239 mg/dLHigh Cholesterol: greater than 239 mg/dL LDL Cholesterol Calculated 43 <100 mg/dL [facility] Comment:Desirable LDL: less than 100 mg/dLNear Optimal/Above Optimal LDL: 110- 129 mg/dLBorderline High LDL: 130-159 mg/dLHigh LDL: 160-189 mg/dLVery High LDL: greater than or equal to 190 mg/dL HDL Cholesterol 34(L) >40 mg/dL [facility] Comment:Desirable HDL: great er than 40 mg/dL Note: This HDL assay may give artificially low results in patients with liver disease. Blood Venous blood specimen / Unknown 04/21/2024 10:01 AM EDT 04/21/2024 11:11 AM EDT Farrah Jackson DO LAB BLOOD ORDERABLES Final R esult [facility] [address] [place] [phone] * Cologuard?? colon cancer screening (08/26/2023 12:36 PM EDT) Cologuard Result Negative Negative 09/02/20 1:54 AM [employer] (CLIA #:[id number]) Comment: NEGATIVE TEST RESULT. A negative Cologuard [...] Toussaint et al, N Engl J Med 2014;370(14):0654-9343) The normal value (reference range) for this assay is negative. COLOGUARD RE-SCREENING RECOMMENDATION: Periodic colorectal cancer screening is an important part of preventive healthcare for asymptomatic individuals at average risk for colorectal cancer. Following a negative Cologuard result, the [place] Cancer Society and U.S. Multi-Society Task Force screening guidelines recommend a Cologuard re-screening interval of 3 years. References: [place] [employer] Society Guideline for Colorectal Cancer Screening: https://www.cancer.org/cancer/vnqaw-ievwhw-tmpoac/girrzrfxf-ionedqogl-yorkhvz/ac s-rec ommendations.html.; Matty DK, Krys CR, Shelton MCDONNELL, Colorectal Cancer Screening: Recommendations for Physicians and Patients from the U.S. Multi-Society Task Force on Colorectal Cancer Screening , Am J Gastroenterology 2017; 112:8490-8036. TEST DESCRIPTION: Composite algorithmic analysis of stool [...] Orona. et al, N Engl J Med 2014;370(14):3160-4289.) Cologuard may produce a false negative or false positive result (no colorectal cancer or precancerous polyp present at colonoscopy follow up). A negative Cologuard test result does not guarantee the absence of CRC or advanced adenoma (pre-cancer). The current Cologuard screening interval is every 3 years. ([place] Cancer Society and U.S. Multi-Society Task Force). Cologuard performance data in a 10,000 patient pivotal study using colonoscopy as the reference method can be accessed at the following location: www.[employer]/results. Additional description of the Cologuard test process, warnings and precautions can be found at www.[employer].com. Stool specimen (specimen) 08/26/2023 12:36 PM EDT 08/27/2023 6:19 PM EDT Farrah Reyak DO LAB MOLECULAR DIAGNOSTICS OR DERABLES Final Result [employer] (CLIA #:[id number]) [place] [address], * Hepatitis C Antibody with Reflex to HCV RNA,PCR w/Reflex to Genotype, [facility] (02/10/2023 12:11 PM EDT) Hepatitis C Antibody NON-REACT EYAD NON-REACT EYAD [employer] [place] [facility] Diagnost Index 0.08 <1.00 [facility] [place] [facility] Comment: HCV antibody was non-reactive. There is no laboratory evidence of HCV infection. In most cases, no further action is required. However, if recent HCV exposure is suspected, a test for HCV RNA (test code 77115) is suggested. For additional information, please refer to http://education.[employer]/faq/XTU776 (This link is being provided for informational/ educational purposes only.) 02/10/2023 12:1 1 PM EDT 02/10/2023 12:13 PM EDT Narrative [facility] - 02/11/2023 7:21 PM EDT FASTING:NO FASTING: NO Farrah Renetta VASQUEZ LAB BLOOD ORDERABLES Final R esult Performing Organization Address City/[facility]/ZIP Co de Phone Number [facility] [address], [place] [address] [employer] [place] [facility] [address] [place] [phone] from Last 3 Months or Most Recently Relevant to Health Maintenance Insurance [address] [place] [id number] [facility] [employer] [facility] JAIL OPTIONS (HMO D-SNP) [facility] * Guarantor: Sonny Curiel Billing Address
--- OUTSIDE RECORDS SUMMARY | 2025-07-16 15:58 | XMS_ITS | Encounter Summary ---
Demographics Address [address] [place] [address] Mobile Phone Home Phone Email Address Preferred Language en
[2025-07-16 16:10] LABS: MANUAL DIFF FLAG NO
[2025-07-16 16:13] LABS: Appearance Urine Clear; Glucose Urine UA >=1000 mg/dL (Negative); PH 5.5 (5.0-9.0); Specific Gravity - Urine 1.020 (1.005-1.025); UMIC TRIGGER UA YES
[2025-07-16 16:29] LABS: Hematocrit 40.4 % (42.0-52.0); Hemoglobin 13.2 g/dl (14.0-18.0); Hemoglobin A1C 135.5051 umol/L; Imm Gran Abs Auto 0.03 X10*3/uL (0.00-0.03); Imm Gran Pct Auto 0.4 % (0.0-0.4); Lymphocytes Absolute Auto 1.7 X10*3/uL (1.2-4.9); Mean Corpuscular HGB Conc 32.7 g/dl (31.0-36.0); Mean Corpuscular Hemoglobin 29.7 pg (27.0-33.0); Mean Corpuscular Volume 90.8 fL (80.0-98.0); NRBC Abs Auto 0.000 X10*3/uL (0.0-0.012); NRBC Pct Auto 0.0 /100WBC (0.0-0.2); Platelet Count 221 X10*3/uL (160-400); Red Blood Count 4.45 X10*6/uL (4.60-5.80); Total Hemoglobin (HGBA1C) 3419.1358 umol/L; White Blood Count 7.7 X10*3/uL (4.8-10.8)
[2025-07-16 16:42] LABS: Alanine Aminotransferase 23 U/L (0-40); Albumin Level 4.3 g/dL (3.5-5.0); Alkaline Phosphatase 58 U/L (39-117); Anion Gap 12 (12-20); Aspartate Amino Transferase 33 U/L (5-37); Blood Urea Nitrogen 15 mg/dL (9-16); Calcium 9.6 mg/dL (8.4-10.2); Carbon Dioxide 27 mmol/L (22-29); Chloride 108 mmol/L (96-108); Cholesterol 87 mg/dL (<200); Estimated Glomerular Filt Rate > 60; HDL Cholesterol 36 mg/dL (>40); Potassium 3.9 mmol/L (3.3-5.1); Sodium 143 mmol/L (135-145); Total Protein 7.2 g/dL (6.5-8.0); Triglycerides 46 mg/dL (<150)
[2025-07-16 16:50] LABS: Microalbum/Creatinine Ratio Ur 30.9 ug/mg cr (<30)
[2025-07-16 16:55] LABS: Prealbumin 25.0 mg/dL (20-40)
[2025-07-16 17:00] LABS: Free T4 (Free Thyroxine) 0.95 ng/dL (0.71-1.85); Thyroid Stimulating Hormone 1.75 uIU/mL (0.32-4.0)
[2025-07-16 17:28] LABS: Folate > 20.0 ng/mL (> or = 4.0); Prostate Specific Antigen 5.00 ng/mL (<0.05-4.0); Vitamin B12 365 pg/mL (200-900)
[2025-07-17 14:24] LABS: HBS Num1 360.84 mIU/mL (0-7.99); HBsAGNum1 0.51 S/CO (0.00-0.99); HIV Num 1 0.05 S/CO (0.00-0.99); Hepatitis B Surface Antigen Negative (Negative); ~HepC Num1 0.13 S/CO (0.00-0.79); ~Hepatitis B Surface Antibody REACTIVE (Nonreactive); ~Hepatitis C Antibody Nonreactive (Nonreactive)
[2025-07-19 05:10] LABS: TS Negative Control Passed; TS Panel A 0; TS Panel B 1; TS Positive Control Passed; TSpotTB Negative (Negative)
== END 2025-07-16 13:33 | disposition home or self-care (01) ==
LOC: HO.HHCL 13:32
PROVIDERS: PCP Family Medicine; Visit Provider Family Medicine
DX: Z12.5 Encounter for screening for malignant neoplasm of prostate (principal); R68.89 Other general symptoms and signs; E11.29 Type 2 diabetes mellitus with other diabetic kidney complication; R80.9 Proteinuria, unspecified; R63.4 Abnormal weight loss; Z11.59 Encounter for screening for other viral diseases
CPT/HCPCS: 36415; 80048; 80061; 80076; 81001; 82043; 82105; 82306; 82570; 82607; 82746; 83036; 84134; 84153; 84439; 84443; 85025; 85652; 86140; 86481; 86592; 86706; 86803; 87340; 87389

== ENCOUNTER 2025-07-17 12:12 | Outpatient (REF) | payer OTHER, SELFPAY ==
--- OUTSIDE RECORDS SUMMARY | 2025-07-16 12:00 | XMS_ITS | Encounter Summary ---
Author Organization [employer] Address [address] [facility] [address] [place] [address] Care Team Providers Care Insect Control Aide Name Role Phone Farrah Jackson DO Primary Care Provider + [phone] Reason for Referral * Consultation (STAT) - Pending Review Specialty Diagnoses / Procedures Referred By Juju t Referred To Contact Gastroenterology Diagnoses Unintentional weight loss Farrah Jackson DO [address] [place] [address] Phone: tel: fax: Referral ID Status Reason Start Date Expiration Date Visits Requested Visits Authorized [id number] Pending Review Specialty Services Required 07/16/2025 07/16/2026 1 1 * Imaging (Routine) - Authorized Specialty Diagnoses / Procedures Referred By Juju t Referred To Contact Cardiology Diagnoses History of tobacco use Procedures Vascular US abdominal aorta anuerysm AAA screening Farrah Jackson DO [address] [place] [address] Phone: tel: fax: [address] Phone: tel: fax: Referral ID Status Reason Start Date Expiration Date Visits Requested Visits Authorized [id number] Authorized Perform Procedure 07/16/2025 07/16/2026 1 1 * Imaging (Routine) - Authorized Specialty Diagnoses / Procedures Referred By Contac t Referred To Contact Radiology Diagnoses Type 2 diabetes mellitus with microalbuminuria, without long-term current use of insulin ([facility]) Unintentional weight loss Procedures NM Gastric Emptying Solid Farrah Jackson DO [address], [place] Phone: tel: fax: [address] Phone: tel: fax: Referral ID Status Reason Start Date Expiration Date V isits Requested Visits Authorized [id number] Authorized 07/16/2025 07/16/2026 3 3 * Imaging (Routine) - Pending Review Specialty Diagnoses / Procedures Referred By Contac t Referred To Contact Radiology Diagnoses Unintentional weight loss Procedures CT Abdomen Pelvis w/ Contrast Farrah Jackson DO [address], [place] Phone: tel: fax: [address] Phone: tel: fax: Referral ID Status Reason Start Date Expiration Date V isits Requested Visits Authorized [id number] Pending Review 07/16/2025 07/16/2026 1 1 * Imaging (Routine) - Pending Review Specialty Diagnoses / Procedures Referred By Contac t Referred To Contact Radiology Diagnoses Unintentional weight loss Procedures CT Chest w/ Contrast Farrah Jackson DO [address], [place] Phone: tel: fax: [address] Phone: tel: fax: Referral ID Status Reason Start Date Expiration Date V isits Requested Visits Authorized [id number] Pending Review 07/16/2025 07/16/2026 1 1 * Imaging (Routine) - Pending Review Specialty Diagnoses / Procedures Referred By Juju t Referred To Contact Radiology Diagnoses Forgetfulness Procedures MR Brain w/o Contrast Farrah Jackson DO [address] [place] [address] Phone: tel: fax: [address] Phone: tel: fax: Referral ID Status Reason Start Date Expiration Date V isits Requested Visits Authorized [id number] Pending Review 07/16/2025 07/16/2026 1 1 Reason for Visit * Reason Comments sick onsite Encounter Details Date Type Department Care Team (Latest Contact Info) Description 07/16/2025 12:00 PM EDT Office Visit [facility] MEDICINE [address] [place] [address] Farrah Jackson DO [address] [place] [address] Unintentional weight loss (Primary Dx); Forgetfulness; History of tobacco use; Type 2 diabetes mellitus with microalbuminuria, without long-term current use of insulin ([facility]); Encounter for immunization Social History Tobacco Use Types Packs/Day Years Used Date Smoking Tobacco: Former Passive Smoke Exposure: Past Smokeless Tobacco: Never Alcohol Use Standard Drinks/Week Comments Never 0 (1 standard drink = 0.6 oz pur e alcohol) Depression Answer Date Recorded Patient Health Questionnaire-9 Score 5 07/16/2025 Patient Health Questionnaire-9 Score 5 07/16/2025 Last PHQ-9: Questionnaire Data Not on file 0 07/16/2025 Housing Stability Answer Date Recorded What is [...] Date Recorded Patient Health Questionnaire-2 Score 0 07/16/2025 Internet Access Answer Date Recorded Internet Access [...] Sign Reading Time Taken Comments Blood Pressure 118/70 07/16/2025 12:24 PM EDT Pulse 70 07/16/2025 12:24 PM EDT Temperature 36.8 C (98.3 F) 07/16/2025 12:24 PM EDT Respiratory Rate 19 07/16/2025 12:24 PM EDT Oxygen Saturation 98% 07/16/2025 12:24 PM EDT Inhaled Oxygen Concentration - - Weight 64.9 kg (143 lb) 07/16/2025 12:24 PM EDT Height 170.2 cm (5' 7 ) 07/16/2025 12:24 PM EDT Body Mass Index 22.4 07/16/2025 12:24 PM EDT documented in this encounter Functional Status * Over the past 2 weeks, how often have you been bothered by any of the following problems? Question Answer Date of Assessment Author Patient Health Questionnaire-2 Score 0 07/16/2025 1:30 PM EDT Wendy Matson MA * Little interest or pleasure in doing things Answer Date of Assessment Author Not at all 07/16/2025 1:30 PM EDT Wendy Holguin MA * Feeling down, depressed, or hopeless Answer Date of Assessment Author Not at all 07/16/2025 1:30 PM EDT Wendy Holguin MA * Trouble falling or staying asleep, or sleeping too much Answer Date of Assessment Author Not at all 07/16/2025 1:30 PM EDT Wendy Holguin MA * Feeling tired or having little energy Answer Date of Assessment Author Several days 07/16/2025 1:30 PM EDT Wendy Holguin MA * Poor appetite or overeating Answer Date of Assessment Author More than half the days 07/16/2025 1:30 PM EDT Wendy Peoples MA * Feeling bad about yourself - or that you are a failure or have let yourself or your family down Answer Date of Assessment Author Not at all 07/16/2025 1:30 PM EDT Wendy Holguin MA * Trouble concentrating on things, such as reading the newspaper or watching television Answer Date of Assessment Author Not at all 07/16/2025 1:30 PM EDT Wendy Holguin MA * Moving or speaking so slowly that other people could have noticed? Or the opposite - being so fidgety or restless that you have been moving around a lot more than usual. Answer Date of Assessment Author More than half the days 07/16/2025 1:30 PM EDT Wendy Peoples MA * Thoughts that you would be better off or hurting yourself in some way Answer Date of Assessment Author Not at all 07/16/2025 1:30 PM EDT Wendy Holguin MA * Patient Health Questionnaire-9 Score Answer Date of Assessment Author 5 07/16/2025 1:30 PM EDT Wendy Holguin MA * How difficult have these problems made it for you to do your work, take care of things at home, or get along with other people? Answer Date of Assessment Author Not difficult at all 07/16/2025 1:30 PM EDT Wendy Sharpe MA * Over the last 2 weeks, how often have you been bothered by any of the following problems? Question Answer Date of Assessment Author Feeling nervous, anxious, or on edge 0 07/16/2025 1:31 PM EDT Wendy Matson MA Not being able to stop or control worrying 1 07/16/2025 1:31 PM EDT Wendy Matson MA Worrying too much about different things 0 07/16/2025 1:31 PM EDT Wendy Matson MA Trouble relaxing 0 07/16/2025 1:31 PM EDT Wendy Peoples MA Being so restless that it is hard to sit still 0 07/16/2025 1:31 PM EDT Wendy Matson MA Becoming easily annoyed or irritable 0 07/16/2025 1:31 PM EDT Wendy Matson MA Feeling afraid as if something awful might happen 0 07/16/2025 1:31 PM EDT Wendy Denise MA JARRED-7 Total Score 1 07/16/2025 1:31 PM EDT Wendy Matson MA documented as of this encounter Progress Notes * Farrah Jackson, - 07/16/2025 12:00 PM EDT SUBJECTIVE: Sonny Curiel is a 64 y.o. year old male who presents for sick visit after recent f/u with pulm. HPI His pulm contacted me after his visit earlier this mos reporting that family was concerned about weight loss and wanted ensure rx. He was referred for PFTs and has appointment in Aug. He had repeat CPAP titration the same night and he was referred to pulm rehab which he is going to schedule today. He says that he's been losing weight like crazy . He says that he feels good. He has been buying ensure and drinking one a day; he prefers chocolate. He says that he's still having diarrhea, ~ 4 times a week. He denies any abdominal pain. No N/V. No constipation. No BRBPR. He says that he has a cough once in a while, sometimes dry, sometimes with mucous. No fevers. He has a h/o smoking for couple of years as a teenager. He says that he was never a big smoker and quit ~ age 16. He says that he has been trying to eat 4 meals/day, breakfast, lunch, snack and dinner. His says that he's eating very small portions. He says that he just don't feel hungry. He's not sure if hegets full quick too. He says that sometimes food tastes different to him and he doesn't want to eatit. He feels forgetful and wants a medicine to help with his memory. He says that he's always misplacing things, like his keys/phone. He gets distracted by something and forgets to go back to what he was doing before, like eating. He has no family h/o dementia. 07/16/25 [facility] Can't recall president name -> recalled martina wray after several minutes. Review of Systems Constitutional: Positive for appetite change. Negative for activity change, chills, fatigue and fever. HENT: Negative for congestion, sore throat and trouble swallowing. Eyes: Negative for visual disturbance. Respiratory: Negative for cough, chest tightness, shortness of breath and wheezing. Cardiovascular: Negative for chest pain, palpitations and leg swelling. Gastrointestinal: Positive for diarrhea. Negative for abdominal pain, blood in stool, constipation,nausea, rectal pain and vomiting. Skin: Negative for rash. Neurological: Negative for dizziness and headaches. Patient Active Problem List Diagnosis BPH without [...] groin pain Hypomagnesemia Myalgia Nausea & vomiting Allergies Allergen Reactions Oxycodone Other Reaction(s): vomiting, delusions Metformin Other reaction(s): Other (See Comments) Dehydration OBJECTIVE Vitals: 07/16/25 1224 BP: 118/70 BP Location: Left arm Patient Position: Sitting BP Cuff Size: Adult Pulse: 70 Resp: 19 Temp: 98.3 ??F (36.8 ??C) TempSrc: Oral SpO2: 98% Weight: 143 lb (64.9 kg) Height: 5' 7 (1.702 m) Physical Exam Constitutional: General: He is not in acute distress. Appearance: Normal appearance. Comments: thin HENT: Right Ear: Tympanic membrane, ear canal and external ear normal. Left Ear: Tympanic membrane, ear canal and external ear normal. Mouth/Throat: Pharynx: Oropharynx is clear. Posterior oropharyngeal erythema present. No oropharyngeal exudate. Eyes: Extraocular Movements: Extraocular movements intact. Conjunctiva/sclera: Conjunctivae normal. Pupils: Pupils are equal, round, and reactive to light. Cardiovascular: Rate and Rhythm: Normal rate and regular rhythm. Heart sounds: Normal heart sounds. No murmur heard. Pulmonary: Effort: Pulmonary effort is normal. Breath sounds: Normal breath sounds. No wheezing or rhonchi. Abdominal: General: Bowel sounds are normal. Palpations: Abdomen is soft. There is no mass. Tenderness: There is no abdominal tenderness. Musculoskeletal: Cervical back: Neck supple. No tenderness. Lymphadenopathy: Head: Right side of head: No submental, posterior auricular or occipital adenopathy. Left side of head: No submental, posterior auricular or occipital adenopathy. Cervical: Right cervical: No superficial or posterior cervical adenopathy. Left cervical: No superficial or posterior cervical adenopathy. Upper Body: Right upper body: No supraclavicular or axillary adenopathy. Left upper body: No supraclavicular or axillary adenopathy. Lower Body: No right inguinal adenopathy. No left inguinal adenopathy. Skin: Findings: No rash. Neurological: General: No focal deficit present. Mental Status: He is alert and oriented to person, place, and time. Cranial Nerves: No cranial nerve deficit. Motor: No weakness. Gait: Gait normal. Psychiatric: Mood and Affect: Mood normal. Office Visit on 07/16/2025 Component Date Value Ref Range Status Glucose Blood, POC 07/16/2025 104 60 - 200 mg/dL Final QC Media Lot # 07/16/2025 [id number] Final Lot# Expiration Date 07/16/2025 [id number] Final Hemoglobin A1C 07/16/2025 5.5 4.0 - 5.7 % Final QC Media Lot # 07/16/2025 [id number] Final Lot# Expiration Date 07/16/2025 [id number] Final ASSESSMENT/PLAN Diagnoses and all orders for this visit: Unintentional weight loss Weight down ~ 20lbs in last year with diarrhea, h/o malignant carcinoid tumor and remote h/o tobacco use -check basic labs -check prealbumin level -check ESR and CRP -check T-spot -check PSA and HIV screening -check stool studies -referred for CT chest -CT abdominal/pelvis with stable liver hemagiomas and cholelithiasis May 2025 -> referred for repeat -colonoscopy with diverticulosis JAN 2012 -cologuard negative AUG 2023 -will initiate prescription for ensure supplementation BID -referred to GI for evaluation -f/u with pulm as scheduled - T4, Free; Future - Vitamin D, 25-Hydroxy, Total, Immunoassay; Future - Lipid Panel, Standard; Future - TSH; Future - Hepatic Function Panel; Future - Hemoglobin A1c; Future - Basic Metabolic Panel; Future - Albumin, Random Urine W/Creatinine; Future - Hepatitis B surface antigen, EIA; Future - Chlamydia/N. Gonorrhoeae RNA, TMA, Urogenitial - HIV-1/2 Antigen and Antibodies, Fourth Generation, with Reflexes; Future - Hepatitis C Antibody with Reflex to HCV, RNA, Quantitative, Real-Time PCR; Future - RPR (Monitor) with Reflex to Titer; Future - Hepatitis B Surface Antibody, Qualitative; Future - Prealbumin; Future - Sed Rate by Modified Westergren; Future - Urinalysis Complete; Future - T-SPOT??.TB; Future - PSA,Total; Future - C-reactive Protein; Future - CBC auto differential; Future - Alpha-Fetoprotein, Tumor Marker; Future - Vitamin B12 (Cobalamin) and Folate Panel, Serum; Future - Leukocytes Stool Qualitative; Future - Stool - Gastrointestinal panel; Future - CT Chest w/ Contrast; Future - CT Abdomen Pelvis w/ Contrast; Future - NM Gastric Emptying Solid; Future - Referral to Gastroenterology; Future Forgetfulness -check TSH, RPR, B12/folate -referred for MRI brain -MMSE with team RN -consider evaluation with neurology -advised contact [facility] if symptoms change or worsen - T4, Free; Future - TSH; Future - RPR (Monitor) with Reflex to Titer; Future - Vitamin B12 (Cobalamin) and Folate Panel, Serum; Future - MR Brain w/o Contrast; Future History of tobacco use -referred for AAA screening - Vascular US abdominal aorta anuerysm AAA screening; Future Type 2 diabetes mellitus with microalbuminuria, without long-term current use of insulin ([facility]) - POCT Glucose - POCT Hgb A1c - NM Gastric Emptying Solid; Future Encounter for immunization - FLU VACCINE TRIVALENT HIGH DOSE [id number] (Fluzone) 65 yrs + F/U with me in 3 mos or sooner prn Current Outpatient Medications: acetaminophen (Tylenol 8 Hour) 650 MG ER tablet, Take 1 tablet (650 mg) by mouth every 8 (eight) hours if needed for mild pain., Disp: 40 tablet, Rfl: 1 albuterol (Ventolin HFA) 108 (90 Base) MCG/ACT inhaler, Inhale 2 puffs every 4 (four) hours if needed for wheezing., Disp: 54 g, Rfl: 1 amoxicillin-clavulanate (Augmentin) 875-125 MG tablet, Take 1 tablet by mouth 2 times daily., Disp:14 tablet, Rfl: 0 atorvastatin (Lipitor) 80 MG tablet, TAKE 1 TABLET BY MOUTH AT BEDTIME, Disp: 90 tablet, Rfl: 1 atorvastatin (Lipitor) 80 MG tablet, TAKE 1 TABLET BY MOUTH AT BEDTIME, Disp: 90 tablet, Rfl: 1 baclofen (Lioresal) 10 MG tablet, Take 1 tablet (10 mg) by mouth if needed in the morning, at noon,and at bedtime for muscle spasms., Disp: 60 tablet, Rfl: 1 Blood Glucose Monitoring Suppl (FreeStyle Lite) w/Device kit, 1 each 2 times daily., Disp: 1 kit, Rfl: 0 carvedilol (Coreg) 12.5 MG tablet, TAKE 1 AND 1/2 TABLETS BY MOUTH TWICE DAILY IN THE MORNING AND IN THE EVENING WITH FOOD, Disp: 90 tablet, Rfl: 1 clonazePAM (KlonoPIN) 0.5 MG tablet, Take 1 tablet (0.5 mg) by mouth if needed each day for anxietyfor up to 7 days., Disp: 7 tablet, Rfl: 0 Diclofenac Sodium 1 % gel, Apply 2 g topically if needed in the morning, at noon, in the evening, and at bedtime (pain)., Disp: 150 g, Rfl: 3 Entresto 49-51 MG tablet, Take 1 tablet by mouth 2 times daily., Disp: , Rfl: Farxiga 10 MG, Take 10 mg by mouth in the morning., Disp: , Rfl: FREESTYLE LITE test strip, USE DIRECTED TO TEST BLOOD SUGAR TWICE DAILY, Disp: 100 strip, Rfl: 8 furosemide (Lasix) 20 MG tablet, Take 20 mg by mouth in the morning., Disp: , Rfl: gabapentin (Neurontin) 300 MG capsule, TAKE 1 CAPSULE BY MOUTH AT BEDTIME, Disp: 30 capsule, Rfl: 3 meloxicam (Mobic) 7.5 MG tablet, Take 7.5 mg by mouth Once per day., Disp: , Rfl: metFORMIN (Glucophage) 500 MG tablet, TAKE 2 TABLETS BY MOUTH TWICE DAILY IN THE MORNING AND EVENING WITH MEALS, Disp: 360 tablet, Rfl: 3 omega-3 1000 MG capsule capsule, TAKE 1 CAPSULE BY MOUTH TWICE A DAY*NC*, Disp: 180 capsule, Rfl: 3 sertraline (Zoloft) 25 MG tablet, TAKE 1 TABLET BY MOUTH EVERY MORNING, Disp: 30 tablet, Rfl: 2 Spacer/Aero-Holding Chambers (OptiChamber Deedee) misc, 1 each every 4 (four) hours if needed (asthma)., Disp: 1 each, Rfl: 0 spironolactone (Aldactone) 25 MG tablet, Take 25 mg by mouth in the morning., Disp: , Rfl: TRUEplus Lancets 33G [facility], USE TO TEST BLOOD SUGAR TWICE DAILY, Disp: 100 each, Rfl: 5 documented in this encounter Plan of Treatment Upcoming Encounters Date Type Department Care Team (Late st Contact Info) Description 07/23/2025 11:30 AM EDT Clinical Support [address] [address] 09/10/2025 1:00 PM EST Office Visit [facility] OPTOMETRY [address] [place] [address] Marie Zhao, OD [address] [place] [address] Pending Results Name Type Priority Associated Diagnoses Date /Time RPR (Monitor) with Reflex to Titer Lab Routine Type 2 diabetes mellitus with microalbuminuria, without long-term current use of insulin (CMS/HCC) Forgetfulness Unintentional weight loss 07/16/2025 1:40 PM EDT Scheduled Orders Name Type Priority Associated Diagnoses Orde r Schedule Chlamydia/N. Gonorrhoeae RNA, TMA, Urogenitial Microbiology Routine Type 2 diabetes mellitus with microalbuminuria, without long-term current use of insulin (CMS/HCC) Forgetfulness Unintentional weight loss Ordered: 07/16/2025 T-SPOT .TB Lab Routine Type 2 diabetes mellitus with microalbuminuria, without long-term current use of insulin (CMS/HCC) Forgetfulness Unintentional weight loss Expected: 07/16/2025 (Approximate), Expires: 07/16/2026 Stool - Gastrointestinal panel Microbiology Routine Unintentional weight loss Expected: 07/16/2025 (Approximate), Expires: 07/16/2026 MR Brain w/o Contrast Imaging Routine Forgetfulness Expected: 07/16/2025, Expires: 07/16/2026 CT Chest w/ Contrast Imaging Routine Unintentional weight loss Expected: 07/16/2025, Expires: 07/16/2026 CT Abdomen Pelvis w/ Contrast Imaging Routine Unintentional weight loss Expected: 07/16/2025, Expires: 07/16/2026 NM Gastric Emptying Solid Imaging Routine Type 2 diabetes mellitus with microalbuminuria, without long-term current use of insulin (CMS/HCC) Unintentional weight loss Expected: 07/16/2025, Expires: 07/16/2026 Scheduled Referrals Name Type Priority Associated Diagnoses Order Schedule Referral to Gastroenterology Outpatient Referral STAT Unintentional weight loss Expected: 07/16/2025 (Approximate), Expires: 07/16/2026 documented as of this encounter Procedures Procedure Name Priority Date/Time Associated Diagnosis Comments LEUKOCYTES STOOL QUALITATIVE Routine 07/17/2025 9:40 AM EDT Unintentional weight loss VITAMIN D,25-OH,TOTAL,IA Routine 07/16/2025 1:40 PM EDT Type 2 diabetes mellitus with microalbuminuria, without long-term current use of insulin (CMS/HCC) Forgetfulness Unintentional weight loss VITAMIN B12/FOLATE, SERUM PANEL Routine 07/16/2025 1:40 PM EDT Type 2 diabetes mellitus with microalbuminuria, without long-term current use of insulin (CMS/HCC) Forgetfulness Unintentional weight loss ALBUMIN, RANDOM URINE W/CREATININE Routine 07/16/2025 1:40 PM EDT Type 2 diabetes mellitus with microalbuminuria, without long-term current use of insulin (CMS/HCC) Forgetfulness Unintentional weight loss CBC WITH AUTO DIFFERENTIAL Routine 07/16/2025 1:40 PM EDT Type 2 diabetes mellitus with microalbuminuria, without long-term current use of insulin (CMS/HCC) Forgetfulness Unintentional weight loss HEPATITIS C AB W/REFL TO HCV RNA, QN, PCR Routine 07/16/2025 1:40 PM EDT Type 2 diabetes mellitus with microalbuminuria, without long-term current use of insulin (CMS/HCC) Forgetfulness Unintentional weight loss ALPHA FETOPROTEIN, TUMOR MARKER Routine 07/16/2025 1:40 PM EDT Type 2 diabetes mellitus with microalbuminuria, without long-term current use of insulin (CMS/HCC) Forgetfulness Unintentional weight loss HEPATITIS B SURFACE ANTIGEN, EIA Routine 07/16/2025 1:40 PM EDT Type 2 diabetes mellitus with microalbuminuria, without long-term current use of insulin (CMS/HCC) Forgetfulness Unintentional weight loss RPR (MONITOR) W/REFL TITER Routine 07/16/2025 1:40 PM EDT Type 2 diabetes mellitus with microalbuminuria, without long-term current use of insulin (CMS/HCC) Forgetfulness Unintentional weight loss HIV 1/2 ANTIGEN/ANTIBODY, FOURTH GENERATION W/RFL Routine 07/16/2025 1:40 PM EDT Type 2 diabetes mellitus with microalbuminuria, without long-term current use of insulin (CMS/HCC) Forgetfulness Unintentional weight loss HEPATITIS B SURFACE ANTIBODY, QUALITATIVE Routine 07/16/2025 1:40 PM EDT Type 2 diabetes mellitus with microalbuminuria, without long-term current use of insulin (CMS/HCC) Forgetfulness Unintentional weight loss URINALYSIS, COMPLETE Routine 07/16/2025 1:40 PM EDT Type 2 diabetes mellitus with microalbuminuria, without long-term current use of insulin (CMS/HCC) Forgetfulness Unintentional weight loss SED RATE BY MODIFIED WESTERGREN Routine 07/16/2025 1:40 PM EDT Type 2 diabetes mellitus with microalbuminuria, without long-term current use of insulin (CMS/HCC) Forgetfulness Unintentional weight loss C-REACTIVE PROTEIN Routine 07/16/2025 1: 40 PM EDT Type 2 diabetes mellitus with microalbuminuria, without long-term current use of insulin (CMS/HCC) Forgetfulness Unintentional weight loss TSH Routine 07/16/2025 1:40 PM EDT Type 2 diabetes mellitus with microalbuminuria, without long-term current use of insulin (CMS/HCC) Forgetfulness Unintentional weight loss T4, FREE Routine 07/16/2025 1:40 PM EDT Type 2 diabetes mellitus with microalbuminuria, without long-term current use of insulin (CMS/HCC) Forgetfulness Unintentional weight loss PSA, TOTAL Routine 07/16/2025 1:40 PM EDT Type 2 diabetes mellitus with microalbuminuria, without long-term current use of insulin (CMS/HCC) Forgetfulness Unintentional weight loss PREALBUMIN Routine 07/16/2025 1:40 PM EDT Type 2 diabetes mellitus with microalbuminuria, without long-term current use of insulin (CMS/HCC) Forgetfulness Unintentional weight loss HEMOGLOBIN A1C Routine 07/16/2025 1:40 PM EDT Type 2 diabetes mellitus with microalbuminuria, without long-term current use of insulin (CMS/HCC) Forgetfulness Unintentional weight loss HEPATIC FUNCTION PANEL Routine 07/16/2025 1:40 PM EDT Type 2 diabetes mellitus with microalbuminuria, without long-term current use of insulin ([facility]/HCC) Forgetfulness Unintentional weight loss LIPID PANEL, STANDARD Routine 07/16/2025 1:40 PM EDT Type 2 diabetes mellitus with microalbuminuria, without long-term current use of insulin ([facility]/HCC) Forgetfulness Unintentional weight loss BASIC METABOLIC PANEL Routine 07/16/2025 1:40 PM EDT Type 2 diabetes mellitus with microalbuminuria, without long-term current use of insulin ([facility]) Forgetfulness Unintentional weight loss POCT GLYCATED HEMOGLOBIN, TOTAL Routine 07/16/2025 12:27 PM EDT Type 2 diabetes mellitus with microalbuminuria, without long-term current use of insulin ([facility]) POCT GLUCOSE Routine 07/16/2025 12:26 PM EDT Type 2 diabetes mellitus with microalbuminuria, without long-term current use of insulin ([facility] [facility]) documented in this encounter Results * Leukocytes Stool Qualitative (07/17/2025 9:40 AM EDT) Leukocytes Stool Qualitative NEGATIVE NEGATIVE [facility] Stool 07/17/2025 9:40 AM EDT 07/17/2025 12:13 PM EDT us Farrah Jackson DO LAB BODY FLUIDS AND STOOLS O RDERABLES Final Result [facility] [address] [place] [phone] * Vitamin B12 (Cobalamin) and Folate Panel, Serum (07/16/2025 1:40 PM EDT) Vitamin B12 365 200 - 900 pg/mL [facility] Comment:NORMAL 200-900 PG/ML INDETERMINATE 160-199 PG/ML DEFICIENT < 160 PG/ML Folate >20.0 > or = 4.0 ng/mL [facility] Comment:Reference Values:> o r = 4.0 ng/mL< 4.0 ng/mL suggests folate deficiency Methotrexate, aminopterin and folinic acid(leucovorin) are chemotherapeutic agents whose molecularstructures are similar to folate; therefore, the Architectfolate assay cannot be used for patients using these drugs. Blood Venous blood specimen / Unknown 07/16/2025 1:40 PM EDT 07/16/2025 4:03 PM EDT Farrah Jackson DO LAB BLOOD ORDERABLES Final R esult Performing Organization Address [facility] Co de Phone Number [facility] [address] [place] [address] [phone] * Alpha-Fetoprotein, Tumor Marker (07/16/2025 1:40 PM EDT) Alpha Fetoprotein 1.1 <6.1 ng/mL [facility] Comment:This test was perfor med using the Malorie Coulterchemiluminescent method. Values obtained fromdifferent assay methods cannot be usedinterchangeably. AFP levels, regardless ofvalue, should not be interpreted as absoluteevidence of the presence or absence of disease.THIS TEST WAS PERFORMED AT:[address] [place] [phone] SOTO MD Blood Venous blood specimen / Unknown 07/16/2025 1:40 PM EDT 07/16/2025 4:09 PM EDT us Farrah Jackson DO LAB BLOOD ORDERABLES Final R esult Performing Organization Address [facility] Co de Phone Number [facility] [address] [place] [phone] * (ABNORMAL) CBC auto differential (07/16/2025 1:40 PM EDT) White Blood Count 7.7 4.8 - 10.8 X10*3/uL [facility] Red Blood Count 4.45(L) 4.60 - 5.80 X10*6/uL [facility] Hemoglobin 13.2(L) 14.0 - 18.0 g/dl [facility] Hematocrit 40.4(L) 42.0 - 52.0 % [facility] Mean Corpuscular Volume 90.8 80.0 - 98.0 fL [facility] Mean Corpuscular Hemoglobin 29.7 27.0 - 33.0 pg [facility] Mean Corpuscular HGB Conc 32.7 31.0 - 36.0 g/dl [facility] Red Cell Distribution Width 16.6(H) 11.0 - 16.0 % [facility] Platelet Count 221 160 - 400 X10*3/uL [facility] Mean Platelet Volume 10.6 9.4 - 12.4 fL [facility] Neutrophils Percent Auto 66.6 45 - 73 % [facility] Imm Gran Pct Auto 0.4 0.0 - 0.4 % [facility] Lymphocytes Percent Auto 21.3 20 - 40 % [facility] Monocytes Percent Auto 10.1 2 - 11 % [facility] Eosinophils Percent Auto 1.0 0 - 4 % [facility] Basophils Percent Auto 0.6 0 - 2 % [facility] NRBC Pct Auto 0.0 0.0 - 0.2 /100WBC [facility] Neutrophils Absolute Auto 5.1 2.0 - 8.3 x10*3/uL [facility] Imm Gran Abs Auto 0.03 0.00 - 0.03 X10*3/uL [facility] Lymphocytes Absolute Auto 1.7 1.2 - 4.9 X10*3/uL [facility] Monocytes Absolute Auto 0.8 0.1 - 1.2 X10*3/uL [facility] Eosinophils Absolute Auto 0.1 0.0 - 0.4 X10*3/uL [facility] Basophils Absolute Auto 0.1 0.0 - 0.2 X10*3/uL [facility] NRBC Abs Auto 0.000 0.0 - 0.012 X10*3/uL [facility] Blood Venous blood specimen / Unknown 07/16/2025 1:40 PM EDT 07/16/2025 4:03 PM EDT Farrah Krissyantonia DO LAB BLOOD ORDERABLES Final R esult Performing Organization Address City/[facility]/ZIP Co de Phone Number [facility] [address] [place] [address] [phone] * C-reactive Protein (07/16/2025 1:40 PM EDT) C Reactive Protein 0.30 < or = 0.50 mg/dL [facility] Blood Venous blood specimen / Unknown 07/16/2025 1:40 PM EDT 07/16/2025 4:09 PM EDT Farrah Juringridantonia LAB BLOOD ORDERABLES Final R esult Performing Organization Address [facility] de Phone Number [facility] [address] [place] [address] [phone] * (ABNORMAL) PSA,Total (07/16/2025 1:40 PM EDT) Prostate Specific Antigen 5.00(H) <0.05 - 4.0 ng/mL [facility] Comment:PSA methodology: Dilan Galindo i ChemiluminescentMicroparticle Immunoassay (CMIA) Blood Venous blood specimen / Unknown 07/16/2025 1:40 PM EDT 07/16/2025 4:03 PM EDT Farrah Chavesingridantonia DO LAB BLOOD ORDERABLES Final R esult Performing Organization Address [facility] Co de Phone Number [facility] [address] [place] [address] [phone] * (ABNORMAL) Urinalysis Complete (07/16/2025 1:40 PM EDT) Color Urine Yellow [facility] Appearance Urine Clear [facility] PH 5.5 5.0 - 9.0 [facility] Glucose Urine UA >=1000(A) Negative mg/dL [facility] Urine Blood Negative Negative [facility] Specific [place] - Urine 1.020 1.005 - 1.025 [facility] Urine Protein Negative Neg-Trace mg/dL [facility] Urine Ketones Negative Negative mg/dL [facility] Nitrite Urine Negative Negative [facility] Leukocyte Esterase Urine Negative Negative [facility] RBC Urine 0-2 0 - 2 /HPF [facility] Urine WBC 0-5 0 - 5 /HPF [facility] Urine Squamous Epithelial Cell 0-2 0 - 2 /HPF [facility] Urine Bacteria None Seen None Seen [facility] Hyaline Casts, Urine 0-2 0 - 2 /LPF [facility] Urine (Urine, Random) 07/16/2025 1:40 PM EDT 07/16/2025 4:03 PM EDT us Farrah Jackson DO LAB URINE ORDERABLES Final R esult [facility] [address] [place] [address] [phone] * Sed Rate by Modified Eduardoren (07/16/2025 1:40 PM EDT) Erythrocyte Sedimentation Rate 2 0 - 15 MM/HR [facility] Comment:Patients with polycy themia and many hemoglobin abnormalitiesmay have depressed sed rates whereas patients with anemiamay have elevated sed rates. Blood Venous blood specimen / Unknown 07/16/2025 1:40 PM EDT 07/16/2025 4:03 PM EDT us Farrah Jurcsak DO LAB BLOOD ORDERABLES Final R esult Performing Organization Address [facility]/ZIP Co de Phone Number [facility] [address] [place] [phone] * Prealbumin (07/16/2025 1:40 PM EDT) Prealbumin 25.0 20 - 40 mg/dL [facility] Blood Venous blood specimen / Unknown 07/16/2025 1:40 PM EDT 07/16/2025 4:03 PM EDT Farrah Renetta DO LAB BLOOD ORDERABLES Final R esult Performing Organization Address [facility] Co de Phone Number [facility] [address] [place] [address] [phone] * Hepatitis B Surface Antibody, Qualitative (07/16/2025 1:40 PM EDT) Pathologist [facility] ~Hepatitis B Surface Antibody REACTIVE Nonreactive [facility] Comment:REACTIVE: > 11.99 mI U/mL Blood Venous blood specimen / Unknown 07/16/2025 1:40 PM EDT 07/16/2025 4:03 PM EDT Farrah Renetta DO LAB BLOOD ORDERABLES Final R esult Performing Organization Address [facility] Co de Phone Number [facility] [address] [place] [phone] * Hepatitis C Antibody with Reflex to HCV, RNA, Quantitative, Real-Time PCR (07/16/2025 1:40 PM EDT) Pathologist [facility] Hepatitis C Antibody Nonreactive Nonreactive [facility] Comment:Antibodies to HCV no t detected; does not exclude early acuteHCV infection. Blood Venous blood specimen / Unknown 07/16/2025 1:40 PM EDT 07/16/2025 4:03 PM EDT Farrah Renetta DO LAB BLOOD ORDERABLES Final R esult Performing Organization Address [facility] Co de Phone Number [facility] [address] [place] [address] [phone] * HIV-1/2 Antigen and Antibodies, Fourth Generation, with Reflexes (07/16/2025 1:40 PM EDT) HIV AB/AG Nonreactive Nonreactive [facility] Comment:HIV-1 p24 Ag and/or HIV-1/HIV-2 Ab not detected.A test result that is nonreactive does not exclude thepossibility of exposure to or infection with HIV-1 and/orHIV-2. Nonreactive results in this assay for individualswith prior exposure to HIV-1 and/or HIV-2 may be due toantigen and antibody levels that are below the limit ofdetection of this assay.The SciAps HIV Ag/Ab Combo assay result andsupplemental assay results should be interpreted inconjunction with the patient's clinical presentation,history and other laboratory results. If the results areinconsistent with clinical evidence, additional testing issuggested to confirm the result. Blood Venous blood specimen / Unknown 07/16/2025 1:40 PM EDT 07/16/2025 4:03 PM EDT Farrah Jackson DO LAB BLOOD ORDERABLES Final R esult Performing Organization Address [facility] Co de Phone Number [facility] [address] [place] [address] [phone] * Hepatitis B surface antigen, EIA (07/16/2025 1:40 PM EDT) Hepatitis B Surface Ag Negative Negative [facility] Blood Venous blood specimen / Unknown 07/16/2025 1:40 PM EDT 07/16/2025 4:03 PM EDT Farrah Renetta DO LAB BLOOD ORDERABLES Final R esult Performing Organization Address City/[facility] de Phone Number [facility] [address] [place] [phone] * (ABNORMAL) Albumin, Random Urine W/Creatinine (07/16/2025 1:40 PM EDT) Creatinine, Urine 48.41 mg/dL [facility] Microalbumin Urine 15.0 mg/L [facility] Microalbum Creatinine Ratio Ur 30.9(H) <30 ug/mg cr [facility] Comment:Albumin/Creatinine R atio Reference Ranges: Normal: < 30 ug/mg creatinine Microalbuminuria: 30 - 300 ug/mg creatinineClinical Albuminuria: > 300 ug/mg creatinine Urine (Urine, Random) 07/16/2025 1:40 PM EDT 07/16/2025 4:03 PM EDT Farrah Jackson DO LAB URINE ORDERABLES Final R esult Performing Organization Address [facility] de Phone Number [facility] [address] [place] [phone] * Basic Metabolic Panel (07/16/2025 1:40 PM EDT) Sodium 143 135 - 145 mmol/L [facility] Potassium 3.9 3.3 - 5.1 mmol/L [facility] Chloride 108 96 - 108 mmol/L [facility] Carbon Dioxide 27 22 - 29 mmol/L [facility] Anion Gap 12 12 - 20 [facility] Urea Nitrogen (BUN) 15 9 - 16 mg/dL [facility] Creatinine, Serum 0.80 0.5 - 1.4 mg/dL [facility] Estimated Glomerular Filt Rate >60 [facility] Comment:Chronic Kidney Disea se: Estimated GFR < 60 mL/min/1.50h0Agaasm Kidney Disease: Estimated GFR < 15 mL/min/1.73m2 Glucose 83 60 - 115 mg/dL [facility] Calcium 9.6 8.4 - 10.2 mg/dL [facility] Blood Venous blood specimen / Unknown 07/16/2025 1:40 PM EDT 07/16/2025 4:09 PM EDT Farrah Jackson LAB BLOOD ORDERABLES Final R esult Performing Organization Address [facility] de Phone Number [facility] [address] [place] [phone] * Hemoglobin A1c (07/16/2025 1:40 PM EDT) Hemoglobin A1c 5.8 <6.0 % [facility] Comment:Hemoglobin A1C Refer ence Range Adults: 4.8 - 6.0 % Non diabetic: < 6.0 % Goal: < 7.0 %Additional Action Suggested: > 8.0 %Note: Hemoglobin A1c results are invalid for patients with abnormal amounts of HbF. Blood transfusions may impact the HbA1c concentration in the patient sample. Estimated Average Glucose 120 mg/dL [facility] Comment:eAG = Estimated ave rage glucose which is %A1C expressed asaverage glucose, using the formula of the [id number] Glucose study (ADAG), Diabetes Care, Vol.31,#8,May. 2007 Blood Venous blood specimen / Unknown 07/16/2025 1:40 PM EDT 07/16/2025 4:03 PM EDT Farrah Renetta DO LAB BLOOD ORDERABLES Final R esult Performing Organization Address City/[facility] Co de Phone Number [facility] [address] [place] [phone] * Hepatic Function Panel (07/16/2025 1:40 PM EDT) Bilirubin, Total 0.8 0.0 - 1.0 mg/dL [facility] Bilirubin, Direct 0.4 0.0 - 0.5 mg/dL [facility] Aspartate Amino Transferase 33 5 - 37 U/L [facility] Alanine Aminotransferase 23 0 - 40 U/L [facility] Total Protein 7.2 6.5 - 8.0 g/dL [facility] Albumin Level 4.3 3.5 - 5.0 g/dL [facility] Alkaline Phosphatase 58 39 - 117 U/L [facility] Blood Venous blood specimen / Unknown 07/16/2025 1:40 PM EDT 07/16/2025 4:09 PM EDT Farrah Jackson DO LAB BLOOD ORDERABLES Final R esult Performing Organization Address City/[facility] Co de Phone Number [facility] [address] [place] [address] [phone] * TSH (07/16/2025 1:40 PM EDT) Thyroid Stimulating Hormone 1.75 0.32 - 4.0 uIU/mL [facility] Comment:TSH 3rd Generation ( [employer] Blood Venous blood specimen / Unknown 07/16/2025 1:40 PM EDT 07/16/2025 4:09 PM EDT Farrah Jackson DO LAB BLOOD ORDERABLES Final R esult Performing Organization Address [facility] Co de Phone Number [facility] [address] [place] [address] [phone] * (ABNORMAL) Lipid Panel, Standard (07/16/2025 1:40 PM EDT) Triglycerides 46 <150 mg/dL [facility] Comment:Desirable Triglyceri de: less than 150 mg/dLBorderline High Triglyceride 150-199 mg/dLHigh Triglyceride: 200-499 mg/dLVery High Triglyceride: greater than or equal to 5OO mg/dL Cholesterol 87 <200 mg/dL [facility] Comment:Desirable Cholestero l: less than 200 mg/dLBorderline High Cholesterol: 200-239 mg/dLHigh Cholesterol: greater than 239 mg/dL LDL Cholesterol Calculated 42 <100 mg/dL [facility] Comment:Desirable LDL: less than 100 mg/dLNear Optimal/Above Optimal LDL: 110- 129 mg/dLBorderline High LDL: 130-159 mg/dLHigh LDL: 160-189 mg/dLVery High LDL: greater than or equal to 190 mg/dL HDL Cholesterol 36(L) >40 mg/dL [facility] Comment:Desirable HDL: great er than 40 mg/dL Note: This HDL assay may give artificially low results in patients with liver disease. Blood Venous blood specimen / Unknown 07/16/2025 1:40 PM EDT 07/16/2025 4:09 PM EDT us Farrah Jackson DO LAB BLOOD ORDERABLES Final R esult [facility] [address] [place] [phone] * Vitamin D, 25-Hydroxy, Total, Immunoassay (07/16/2025 1:40 PM EDT) Vitamin D 25-OH Total 56.9 >30 ng/mL [facility] Comment: Health Based Reference Values*< 20 ng/mL Wlynnstnu16-76 ng/mL Insufficient> 30 ng/mL Sufficient*Andrea VAZQUEZ. N Engl J Med. 2007;357:266-280There is no well-established upper level of normal vitamin Dlevels. Some laboratories use 50 ng/mL as an upper limit ofnormal. However, toxicity is patient-dependent and may occurat any level. Careful correlation with the patient'spresentation is necessary and, if there is concern forvitamin D toxicity, treatment should be consideredirrespective of the serum level.Care must be taken in interpreting Vitamin D results fromdifferent laboratories and methodologies. Published datademonstrated that results from patients undergoinghemodialysis may show a negative bias when tested withvarious automated 25-OH vitamin D assays when compared toLC-MS/MS.When testing samples from patients whose predominant form ofVitamin D is Vitamin D2, such as patients receiving VitaminD2 supplementation, results that are subtherapeutic shouldbe confirmed with another method such as LC-MS/MS. Blood Venous blood specimen / Unknown 07/16/2025 1:40 PM EDT 07/16/2025 4:09 PM EDT Farrah Chavessamantha DO LAB BLOOD ORDERABLES Final R esult [facility] [address] [place] [address] [phone] * T4, Free (07/16/2025 1:40 PM EDT) Free T4 (Free Thyroxine) 0.95 0.71 - 1.85 ng/dL [facility] Blood Venous blood specimen / Unknown 07/16/2025 1:40 PM EDT 07/16/2025 4:09 PM EDT Farrah Renetta DO LAB BLOOD ORDERABLES Final R esult Performing Organization Address City/[facility]/ZIP Co de Phone Number [facility] [address] [place] [address] [phone] * POCT Hgb A1c (07/16/2025 12:27 PM EDT) Hemoglobin A1C 5.5 4.0 - 5.7 % QC [employer] Lot # [id number] Lot# Expiration Date Blood 07/16/2025 12:2 7 PM EDT Farrah Renetta DO POINT OF CARE TEST ENTER/NILESH T ORDERABLES Final Result * POCT Glucose (07/16/2025 12:26 PM EDT) Glucose Blood, POC 104 60 - 200 mg/dL [employer] Lot # [id number] Lot# Expiration Date Blood Capillary blood specimen / Unknown 07/16/2025 12:26 PM EDT Farrah Chavescsak DO POINT OF CARE TEST ENTER/NILESH T ORDERABLES Final Result documented in this encounter Visit Diagnoses Diagnosis Unintentional weight loss- Primary Loss of weight Forgetfulness Other general symptoms History of tobacco use Personal history of tobacco use, presenting hazards to health Type 2 diabetes mellitus with microalbuminuria, without long-term current use of insulin ([facility]) Encounter for immunization documented in this encounter Additional Health Concerns Assessment Noted Time PHQ-9 Depression Total Score: 5 07/16/20 25 1:30 PM EDT documented as of this encounter Care Teams Insect Control Aide Relationship Specialty Start Date End Date Farrah Jackson DO [address] [place] [address] PCP - General Family Medicine 10/25/18 documented as of this encounter
[2025-07-17 14:08] LABS: Leukocytes Stool Qualitative NEGATIVE (NEGATIVE)
--- OUTSIDE RECORDS SUMMARY | 2025-07-17 15:06 | XMS_ITS | Encounter Summary ---
Author Organization [employer] Address [address] 7[address] [place] [address] Care Team Providers Care Equipment Maint Tech Name Role Phone Farrah Jackson DO Primary Care Provider + [phone] Encounter Details Date Type Department Care Team (Late Contact Info) Description 01/15/2023 Orders Only [facility] MED & PEDS [address] [place], [place] [phone] Farrah Baird LPN Social History Tobacco Use [...] Description 07/23/2025 11:30 AM EDT Clinical Support [facility] MEDICINE [address] [place], [place] [phone] 09/10/2025 1:00 PM EST Office Visit [facility] OPTOMETRY [address] [place], [place] [phone] Marie Zhao, OD [address] [place] [address] documented as of this encounter Visit Diagnoses Not on filedocumented in this encounter Care Teams Equipment Maint Tech Relationship Specialty Start Date End Date Farrah Jackson DO [address] [place] [address] PCP - General Family Medicine 10/25/18 documented as of this encounter
--- OUTSIDE RECORDS SUMMARY | 2025-07-17 15:06 | XMS_ITS | Clinical Summary ---
Author Organization [facility] Address [address] [place] [phone] Phone Care Team Providers Care Tube Winder Hand Name Role Phone Unavailable Primary Care Provider [...]
--- OUTSIDE RECORDS SUMMARY | 2025-07-17 15:06 | XMS_ITS | Encounter Summary ---
Author Organization [employer] Address [address] [facility] [place] [address] Care Team Providers Care Electronic Equipment Set Up Operator Name Role Phone Meagan Jacksonfer Primary Care Provider + [phone] Reason for Visit * Reason Comments Med Refill Encounter Details Date Type Department Care Team ([facility] Contact Info) Description 11/19/2023 Refill [facility] MEDICINE [address] [place], [place] [phone] Juana Wilson MD [address] [place], [place] [phone] Social History Tobacco Use Types Packs/Day Years [...] Description 07/23/2025 11:30 AM EDT Clinical Support [facility] MEDICINE [address] [place] [address] 09/10/2025 1:00 PM EST Office Visit [facility] OPTOMETRY [address] [place] [address] Marie Zhao, OD [address] [place] [address] documented as of this encounter Visit Diagnoses Not on filedocumented in this encounter Care Teams Electronic Equipment Set Up Operator Relationship Specialty Start Date End Date Farrah Jackson DO [address] [place] [address] PCP - General Family Medicine 10/25/18 documented as of this encounter
--- OUTSIDE RECORDS SUMMARY | 2025-07-17 15:06 | XMS_ITS | Encounter Summary ---
Author Organization [facility] Address [address] [place] [address] Care Team Providers Care Overlock Operator Name Role Phone Unavailable Primary Care Provider Unavailabl e Encounter Details Date Type Department Care Team (Late st Contact Info) Description 09/11/2024 Lab Requisition [facility] - Main Lab [address] [place] [address] Krishna Jose MD [address] [facility] [address] [place] [phone] Elevated prostate specific antigen (PSA) Social History [...] Acute inflammation present. 09/20/2024 4:[address] [facility] Gross Description A. Urine, Voided, : [id number] Recd 1 TP CYTO 09/20/2024 4:[address] [facility] Disclaimer Unless otherwise specified, all tissue is 10% NB formalin fixed and paraffin embedded. 09/20/2024 4:27 PM EST [facility] Tissue Urine specimen from urethra / Unknown 09/06/2024 09/11/2024 1:13 PM EST us Krishna Jose MD LAB PATHOLOGY ORDERABLES Final Result [facility] [address] [place] [address], documented in this encounter Visit Diagnoses Diagnosis Elevated prostate specific antigen (PSA) documented in this encounter
--- OUTSIDE RECORDS SUMMARY | 2025-07-17 15:06 | XMS_ITS | Encounter Summary ---
Author Organization [employer] Address [address] [facility] 7t [place] [address] Care Team Providers Care Credentialing Manager Name Role Phone Farrah Jackson DO Primary Care Provider + [phone] Reason for Visit * Reason Onset Date Comments Durable Medical Equipment 07/16/2025 DME pr escription Ensure([facility]). Encounter Details Date Type Department Care Team ([facility] Contact Info) Description 07/16/2025 Telephone [facility] MEDICINE [address] [place] [address] Farrah Jackson DO [address] [place], [place] [phone] Durable Medical Equipment (DME prescription Ensure([facility]).) Social History Tobacco Use Types Packs/Day Years [...] AM EDT documented as of this encounter Functional Status * Over the [...] or control worrying 1 07/16/2025 1:31 PM BARBARAT Wendy Matson MA Worrying too much about different things 0 07/16/2025 1:31 PM BARBARAT Wendy Matson MA Trouble relaxing 0 07/16/2025 [...] Matson MA documented as of this encounter Miscellaneous Notes * Telephone Encounter - Magda Dennison MA - 07/16/2025 3:26 PM EDT DME RX for Ensure generated sign and faxed [facility]. * Telephone Encounter - Farrah Jackson DO - 07/16/2025 1:28 PM EDT Please initiate prescription for ensure BID, chocolate. Thank you. documented in this encounter Plan of Treatment Upcoming Encounters Date Type Department Care Team (Late st Contact Info) Description 07/23/2025 11:30 AM EDT Clinical Support [facility] MEDICINE [address] [place] [address] 09/10/2025 1:00 PM EST Office Visit [facility] OPTOMETRY [address] [place] [address] Marie Zhao, OD [address] [place] [address] documented as of this encounter Visit Diagnoses Not on filedocumented in this encounter Additional Health Concerns Assessment Noted Time PHQ-9 Depression Total Score: 5 07/16/20 25 1:30 PM EDT documented as of this encounter Care Teams Credentialing Manager Relationship Specialty Start Date End Date Farrah Jackson DO [address] [place] [address] PCP - General Family Medicine 10/25/18 documented as of this encounter
--- OUTSIDE RECORDS SUMMARY | 2025-07-17 15:06 | XMS_ITS | Encounter Summary ---
Author Organization [employer] Address [address] [place] [address] Care Team Providers Care Tobacco Shaker Name Role Phone Farrah Jackson DO Primary Care Provider + [phone] Reason for Visit * Reason Comments Med Refill Encounter Details Date Type Department Care Team ([facility] Contact Info) Description 07/13/2025 Refill [facility] MEDICINE [address] [place], [place] [phone] Farrah Jackson DO [address] [place] [address] Type 2 diabetes mellitus with microalbuminuria, without long-term current use of insulin ([facility]) Social History Tobacco Use Types Packs/Day Years [...] Description 07/23/2025 11:30 AM EDT Clinical Support [facility] MEDICINE [address] [place] [address] 09/10/2025 1:00 PM EST Office Visit [facility] OPTOMETRY [address] [place], [place] [phone] Marie Zhao, OD [address] [place] [address] documented as of this encounter Visit Diagnoses Diagnosis Type 2 diabetes mellitus with microalbuminuria, without long-term current use of insulin ([facility]) documented in this encounter Additional Health Concerns Assessment Noted Time PHQ-9 Depression Total Score: 1 06/08/20 25 12:18 PM EDT documented as of this encounter Care Teams Tobacco Shaker Relationship Specialty Start Date End Date Farrah Jackson DO [address] [place] [address] PCP - General Family Medicine 10/25/18 documented as of this encounter
--- OUTSIDE RECORDS SUMMARY | 2025-07-17 15:06 | XMS_ITS | Encounter Summary ---
Author Organization [employer] Address [address] [place] [address] Care Team Providers Care Utility Worker Film Processing Name Role Phone KrissyFarrah knight Primary Care Provider + [phone] Encounter Details Date Type Department Care Team (Latest Contact Info) Description 07/16/2025 Travel Social History Tobacco Use Types Packs/Day Years [...] Matson [place] documented as of this encounter Plan of Treatment Upcoming Encounters Date Type Department Care Team (Late st Contact Info) Description 07/23/2025 11:30 AM EDT Clinical Support [facility] MEDICINE [address] [place] [address] 09/10/2025 1:00 PM EST Office Visit [facility] OPTOMETRY [address] [place] [address] Marie Zhao, OD [address] [place] [address] documented as of this encounter Visit Diagnoses Not on filedocumented in this encounter Additional Health Concerns Assessment Noted Time PHQ-9 Depression Total Score: 5 07/16/20 25 1:30 PM EDT documented as of this encounter Care Teams Utility Worker Film Processing Relationship Specialty Start Date End Date Farrah Jackson DO [address] [place] [address] PCP - General Family Medicine 10/25/18 documented as of this encounter
--- OUTSIDE RECORDS SUMMARY | 2025-07-17 15:06 | XMS_ITS | Encounter Summary ---
Author Organization [employer] Address [address] [facility] [address]t [place] [address] Care Team Providers Care Safety Tech Name Role Phone Farrah Jackson DO Primary Care Provider + [phone] Reason for Visit * Reason Onset Date Comments Nurse Triage 12/28/2023 Encounter Details Date Type Department Care Team ([facility] st Contact Info) Description 12/28/2023 Telephone [facility] MEDICINE [address] [place], [place] [phone] Farrah Jackson DO [address] [place], [place] [phone] Nurse Triage Social History Tobacco Use Types [...] for UTI. Pt is advised to come [facility] for provider to see Pt. Pt insurance is not active at this time and Pt is waiting for medicare to start. Advised to stop at [facility] to speak about insurance before going to [facility] . Pt agreed with disposition and advised [...] accepted this outcome Please contact pt at [phone] documented in this encounter Plan of Treatment Upcoming Encounters Date Type Department Care Team ([facility] Contact Info) Description 07/23/2025 11:30 AM EDT Clinical Support [facility] MEDICINE [address] [place] [address] 09/10/2025 1:00 PM EST Office Visit [facility] OPTOMETRY [address] [place] [address] Marie Zhao, OD [address] [place] [address] documented as of this encounter Visit Diagnoses Not on filedocumented in this encounter Care Teams Safety Tech Relationship Specialty Start Date End Date Farrah Jackson DO [address] [place] [address] PCP - General Family Medicine 10/25/18 documented as of this encounter
--- OUTSIDE RECORDS SUMMARY | 2025-07-17 15:06 | XMS_ITS | Clinical Summary ---
Author Organization [facility] Address [address] [address] Phone Care Team Providers Care Planimeter Operator Name Role Phone KrissyFarrah knight Primary Care [...] on file Insurance GENERIC COMMERCIAL [place] NGOZI [id number] GENERIC COMMERCIAL [place] [id number] GENERIC COMMERCIAL MD NGOZI [id number] GENERIC COMMERCIAL MD NGOZI [id number] GENERIC COMMERCIAL MD NGOZI [id number] GENERIC COMMERCIAL MD NGOZI [id number] GENERIC COMMERCIAL MD NGOZI [id number] GENERIC COMMERCIAL GENERIC COMMERCIAL Care Teams Planimeter Operator Relationship Specialty Start Date End Date Farrah Jackson DO [address] [place] [address] PCP - General Family Medicine 01/06/19 Additional Source Comments The information contained in this document represents components of the legal health record. It is not the complete legal health record.[facility]
--- OUTSIDE RECORDS SUMMARY | 2025-07-17 15:06 | XMS_ITS | Clinical Summary ---
Author Organization [employer] Address [address] [facility] [address] [place] [address] Care Team Providers Care Loan Collector Name Role Phone Farrah Jackson DO Primary Care Provider + [phone] Allergies Active Allergy Reactions Criticality Noted Date [...] microalbuminuria, without long-term current use of insulin ([facility]) USE DIRECTED TO TEST [...] WITH FOOD 90 tablet 1 5 Active TRUEplus Lancets 33G miscIndications:T ype 2 diabetes mellitus with microalbuminuria, without long-term current use of insulin (CMS/[facility]) USE TO TEST BLOOD SUGAR TWICE DAILY 100 each 5 Active Active Problems Problem Noted Date Diagnosed Date Hypomagnesemia 06/19/2024 Severe dental caries 05/30/2024 COPD (chronic [...] Problem Noted Date Diagnosed Date Resolved Date Acute urinary retention 06/19/202406/26 Adverse drug reaction 06/19/20242024 Bilateral groin pain 06/19/2024 025 Myalgia 06/19/2024 07/16/2025 Nausea & vomiting 06/19/2024 07/16/2025 NICM (nonischemic cardiomyopathy) 08/05/2023 023 08/05/2023 Irregular heart rhythm 04/07/201802/10 Chronic alcoholism in remission 01/08/2017 03/30/2023 Encounters Date Type Department Care Team Description 07/16/2025 12:00 PM EDT Office Visit [facility] [address] [place] [phone] Farrah Jackson DO Unintentional weight loss (Primary Dx); Forgetfulness; History of tobacco use; Type 2 diabetes mellitus with microalbuminuria, without long-term current use of insulin (CMS/HCC); Encounter for immunization 07/16/2025 Telephone [facility] [address] [place], [place] [phone] Farrah Jackson DO Durable Medical Equipment (DME prescription Ensure(CCA).) 07/16/2025 Travel 07/13/2025 Telephone [facility] [address] [place] [address] Farrah Jackson DO CHART PREP 07/13/2025 Refill [facility] [address] [place] [address] Farrah Jackson DO Type 2 diabetes mellitus with microalbuminuria, without long-term current use of insulin (CMS/HCC) 06/22/2025 Patient Outreach [facility] [address] [place] [address] Farrah Jackson DO Transition Of Care (Tcm) (HDF- patient denied ) 06/20/2025 Orders Only GENERIC EXTERNAL DATA DEPARTMENT Provider, Generic External Data 06/08/2025 11:30 AM EDT Office Visit [facility] [address] [place] [address] Farrah Jackson DO Type 2 diabetes mellitus with microalbuminuria, without long-term current use of insulin (CMS/HCC) 06/08/2025 Travel 06/07/2025 Telephone [facility] [address] [place] [address] Farrah Jackson DO chart prep 05/30/2025 Patient Outreach [facility] [address] [place] [address] Farrah Jackson DO Pre-visit Planning (SDOH screening negative and tobacco screening negative) 05/30/2025 Refill [facility] [address] [place] [address] Farrah Jackson DO Primary hypertension 05/29/2025 Orders Only [facility] External Provider, [facility] 05/25/2025 Telephone [facility] [address] [place] [address] Farrah Jackson DO Appointment Request 05/25/2025 Travel 05/08/2025 9:20 AM EDT Office Visit [facility] [address] [place] [address] Hilario, Lor, OD Type 2 diabetes mellitus with diabetic microalbuminuria, without long-term current use of insulin (CMS/HCC) (Primary Dx) 05/08/2025 Telephone [facility] [address] [place] [address] Farrah Jackson DO Med Refill 05/08/2025 Travel 04/29/2025 Refill [facility] [address] [place] [address] Farrah Jackson DO from Last 3 Months Immunizations Immunization Administration Dates Next Due Hep A, Adult 02/18/2006 Hep B, adult 04/09/2015,03/14/2015 Influenza injectable quadriv alent preservative free 08/05/2023,07/10/2022,10/14/2021,07/20,09/08/2016 Influenza, High Dose Seasona l, Preservative Free 07/16/2025 Influenza, seasonal, injecta ble, preservative free 08/05/2015 [...] Mass Index 22.4 07/16/2025 12:24 PM EDT Plan of Treatment Upcoming Encounters Date Type Department Care Team (Late st Contact Info) Description 07/23/2025 11:30 AM EDT Clinical Support [facility] [address] [place] [address] 09/10/2025 1:00 PM EST Office Visit [facility] [address] [place] [address] Marie Zhao, OD [address] [place] [address] Health Maintenance Due Date Last Done Comments [...] years 1-dose series) 2018 FOBT 08/26/2024 08/26/2023 COVID-19 Vaccine ( season) 2025 04/21/2024, 08/05/2023, 09/29/2022, Additional history exists Diabetes: Hemoglobin A1C 01/13/2026 025, 07/16/2025, 06/08/2025, Additional history exists SDOH Screening 05/30/2026 05/30/2025 Alcohol/Substance Use Screening 06/08/2026 06/08/2025 Depression Screening 07/16/2026 07/16/2025, 07/16/20 25 Diabetes: Urine Protein Screening 07/16/2026 07/16/2025, 04/21/2024, 02/10/2023, Additional history exists Lipid Panel 07/16/2026 07/16/2025, 03/26, 02/10/2023, Additional history exists Tobacco Screening 07/16/2026 07/16/2025 Colorectal Cancer Screening 08/26/2026 FIT DNA/Cologuard 08/26/2026 08/26/2023 DTaP/Tdap/Td Vaccines (4 - Td or Tdap) 08/31/2033 08/31/2023, 06/02/2021, 03/04/2010, Additional history exists Zoster Vaccines Completed 12/16/2021, 10/14/2021 Hepatitis C Screening Completed 07/16/2025, 023 Pneumococcal Vaccine: 50+ Years Completed 08/05/2023, 12/27/2019, 03/04/2010 Influenza Vaccine Completed 07/16/2025, , 07/10/2022, Additional history exists HIB Vaccines Aged Out No longer eligi [...] 9:40 AM EDT Unintentional weight loss VITAMIN B12/FOLATE, SERUM PANEL [...] insulin (CMS/HCC) Forgetfulness Unintentional weight loss VITAMIN D,25-OH,TOTAL,IA Routine 07/16/2025 1:40 PM EDT Type 2 diabetes mellitus with microalbuminuria, without long-term current use of insulin (CMS/HCC) Forgetfulness Unintentional weight loss T4, FREE Routine 07/16/2025 1:40 PM EDT Type 2 diabetes mellitus with microalbuminuria, without long-term current use of insulin ([facility]) Forgetfulness Unintentional weight loss POCT GLYCATED HEMOGLOBIN, TOTAL Routine 07/16/2025 12:27 PM EDT Type 2 diabetes mellitus with microalbuminuria, without long-term current use of insulin (CMS/[facility]) POCT GLUCOSE Routine 07/16/2025 12:26 PM EDT Type 2 diabetes mellitus with microalbuminuria, without long-term current use of insulin (CMS/[facility]) XR CHEST 2 VIEWS Routine 06/20/2025 10:4 [...] microalbuminuria, without long-term current use of insulin ([facility]) POCT GLUCOSE Routine 06/08/2025 11:30 AM EDT Type 2 diabetes mellitus with microalbuminuria, without long-term current use of insulin (CMS/[facility]) CT ABDOMEN PELVIS W [...] 2 VIEWS Routine 05/29/2025 3:16 PM EDT LAB COLOGUARD COLON CANCER SCREEN Routine 08/26/2023 12:36 PM EDT Healthcare maintenance PANORAMIC RADIOGRAPHIC IMAGE Routine 10/28/2010 12:00 AM EST from Last 3 Months or Most Recently Relevant to Health Maintenance Results * Leukocytes Stool Qualitative (07/17/2025 9:40 AM EDT) Leukocytes Stool Qualitative NEGATIVE NEGATIVE [facility] Stool 07/17/2025 9:40 AM EDT 07/17/2025 12:13 PM EDT us Farrah Jackson DO LAB BODY FLUIDS AND STOOLS O RDERABLES Final Result [facility] [address] [place] [phone] * Vitamin D, 25-Hydroxy, Total, Immunoassay (07/16/2025 1:40 PM EDT) Vitamin D 25-OH Total 56.9 >30 ng/mL [facility] Comment: Health Based Reference Values*< 20 ng/mL Cipqzeijl60-32 ng/mL Insufficient> 30 ng/mL Sufficient*Andrea VAZQUEZ. N [...] DO LAB BLOOD ORDERABLES Final R esult [facility] [address] [place] [address] [phone] * Vitamin B12 (Cobalamin) and Folate Panel, Serum (07/16/2025 1:40 PM EDT) Vitamin B12 365 200 - 900 pg/mL [facility] Comment:NORMAL 200-900 PG/ML INDETERMINATE 160-199 PG/ML DEFICIENT < 160 PG/ML Folate >20.0 > or = 4.0 ng/mL [facility] Comment:Reference Values:> o r = 4.0 ng/mL< 4.0 ng/mL suggests folate deficiency Methotrexate, aminopterin and folinic acid(leucovorin) are chemotherapeutic agents whose molecularstructures are similar to folate; therefore, the Architectfolate assay cannot be used for patients using these drugs. Blood Venous blood specimen / Unknown 07/16/2025 1:40 PM EDT 07/16/2025 4:03 PM EDT [facility] BLOOD ORDERABLES Final R esult Performing Organization Address [facility] Co de Phone Number [facility] [address] [place] [phone] * (ABNORMAL) Albumin, Random Urine W/Creatinine (07/16/2025 1:40 PM EDT) Creatinine, Urine 48.41 mg/dL [facility] Microalbumin Urine 15.0 mg/L [facility] Microalbum Creatinine Ratio Ur 30.9(H) <30 ug/mg cr [facility] Comment:Albumin/Creatinine R atio Reference Ranges: Normal: < 30 ug/mg creatinine Microalbuminuria: 30 - 300 ug/mg creatinineClinical Albuminuria: > 300 ug/mg creatinine Urine (Urine, Random) 07/16/2025 1:40 PM EDT 07/16/2025 4:03 PM EDT [facility] LAB URINE ORDERABLES Final R esult Performing Organization Address [facility] Co de Phone Number [facility] [address] [place] [phone] * (ABNORMAL) CBC auto differential (07/16/2025 1:40 PM EDT) Only the most recent of3 resultswithin the time period is included. White Blood Count 7.7 4.8 - 10.8 X10*3/uL [facility] Red Blood Count 4.45(L) 4.60 - 5.80 X10*6/uL [facility] Hemoglobin 13.2(L) 14.0 - 18.0 g/dl [facility] Hematocrit 40.4(L) 42.0 - 52.0 % [facility] Mean Corpuscular Volume 90.8 80.0 - 98.0 fL [facility] Mean Corpuscular Hemoglobin 29.7 27.0 - 33.0 pg [facility] Mean Corpuscular HGB Conc 32.7 31.0 - 36.0 g/dl [facility] Red Cell Distribution Width 16.6(H) 11.0 - 16.0 % [facility] Platelet Count 221 160 - 400 X10*3/uL [facility] Mean Platelet Volume 10.6 9.4 - 12.4 fL [facility] Neutrophils Percent Auto 66.6 45 - 73 % [facility] Imm Gran Pct Auto 0.4 0.0 - 0.4 % [facility] Lymphocytes Percent Auto 21.3 20 - 40 % [facility] Monocytes Percent Auto 10.1 2 - 11 % [facility] Eosinophils Percent Auto 1.0 0 - 4 % [facility] Basophils Percent Auto 0.6 0 - 2 % [facility] NRBC Pct Auto 0.0 0.0 - 0.2 /100WBC [facility] Neutrophils Absolute Auto 5.1 2.0 - 8.3 x10*3/uL [facility] Imm Gran Abs Auto 0.03 0.00 - 0.03 X10*3/uL [facility] Lymphocytes Absolute Auto 1.7 1.2 - 4.9 X10*3/uL [facility] Monocytes Absolute Auto 0.8 0.1 - 1.2 X10*3/uL [facility] Eosinophils Absolute Auto 0.1 0.0 - 0.4 X10*3/uL [facility] Basophils Absolute Auto 0.1 0.0 - 0.2 X10*3/uL [facility] NRBC Abs Auto 0.000 0.0 - 0.012 X10*3/uL [facility] Blood Venous blood specimen / Unknown 07/16/2025 1:40 PM EDT 07/16/2025 4:03 PM EDT Farrah Jackson LAB BLOOD ORDERABLES Final R esult Performing Organization Address City/[facility]/ZIP Co de Phone Number [facility] [address] [place] [phone] * Hepatitis C Antibody with Reflex to HCV, RNA, Quantitative, Real-Time PCR (07/16/2025 1:40 PM EDT) Pathologist [facility] Hepatitis C Antibody Nonreactive Nonreactive [facility] Comment:Antibodies to HCV no t detected; does not exclude early acuteHCV infection. Blood Venous blood specimen / Unknown 07/16/2025 1:40 PM EDT 07/16/2025 4:03 PM EDT Farrah Jackson LAB BLOOD ORDERABLES Final R esult Performing Organization Address City/[facility]/ZIP Co de Phone Number [facility] [address] [place] [phone] * Alpha-Fetoprotein, Tumor Marker (07/16/2025 1:40 PM EDT) Pathologist [facility] Alpha Fetoprotein 1.1 <6.1 ng/mL [facility] Comment:This test was perfor med using the Malorie Coulterchemiluminescent method. Values obtained fromdifferent assay methods cannot be usedinterchangeably. AFP levels, regardless ofvalue, should not be interpreted as absoluteevidence of the presence or absence of disease.THIS TEST WAS PERFORMED AT:[facility] [place] [id number] SOTO MD Blood Venous blood specimen / Unknown 07/16/2025 1:40 PM EDT 07/16/2025 4:09 PM EDT Farrah Jackson DO LAB BLOOD ORDERABLES Final R esult Performing Organization Address City/[facility]/ZIP Co de Phone Number [facility] [address] [place] [phone] [phone] * Hepatitis B surface antigen, EIA (07/16/2025 1:40 PM EDT) Hepatitis B Surface Ag Negative Negative [facility] Blood Venous blood specimen / Unknown 07/16/2025 1:40 PM EDT 07/16/2025 4:03 PM EDT Farrah Jackson LAB BLOOD ORDERABLES Final R esult Performing Organization Address [facility] Co de Phone Number [facility] [address] [place] [phone] * HIV-1/2 Antigen and Antibodies, Fourth Generation, with Reflexes (07/16/2025 1:40 PM EDT) Pathologist [facility] HIV AB/AG Nonreactive Nonreactive [facility] Comment:HIV-1 p24 Ag and/or HIV-1/HIV-2 Ab not detected.A test result that is nonreactive does not exclude thepossibility of exposure to or infection with HIV-1 and/orHIV-2. Nonreactive results in this assay for individualswith prior exposure to HIV-1 and/or HIV-2 may be due toantigen and antibody levels that are below the limit ofdetection of this assay.The [employer] HIV Ag/Ab Combo assay result andsupplemental assay results should be interpreted inconjunction with the patient's clinical presentation,history and other laboratory results. If the results areinconsistent with clinical evidence, additional testing issuggested to confirm the result. Blood Venous blood specimen / Unknown 07/16/2025 1:40 PM EDT 07/16/2025 4:03 PM EDT Farrah Jackson DO LAB BLOOD ORDERABLES Final R esult Performing Organization Address City/[facility]/ZIP Co de Phone Number [facility] [address] [place] [phone] * Hepatitis B Surface Antibody, Qualitative (07/16/2025 1:40 PM EDT) ~Hepatitis B Surface Antibody REACTIVE Nonreactive [facility] Comment:REACTIVE: > 11.99 mI U/mL Blood Venous blood specimen / Unknown 07/16/2025 1:40 PM EDT 07/16/2025 4:03 PM EDT Farrah Jackson DO LAB BLOOD ORDERABLES Final R esult Performing Organization Address [facility] Co de Phone Number [facility] [address] [place] [phone] * (ABNORMAL) Urinalysis Complete (07/16/2025 1:40 PM EDT) Color Urine Yellow [facility] Appearance Urine Clear [facility] PH 5.5 5.0 - 9.0 [facility] Glucose Urine UA >=1000(A) Negative mg/dL [facility] Urine Blood Negative Negative [facility] Specific [place] - Urine 1.020 1.005 - 1.025 [facility] Urine Protein Negative Neg-Trace mg/dL [facility] Urine Ketones Negative Negative mg/dL [facility] Nitrite Urine Negative Negative [facility] Leukocyte Esterase Urine Negative Negative [facility] RBC Urine 0-2 0 - 2 /HPF [facility] Urine WBC 0-5 0 - 5 /HPF [facility] Urine Squamous Epithelial Cell 0-2 0 - 2 /HPF [facility] Urine Bacteria None Seen None Seen [facility] Hyaline Casts, Urine 0-2 0 - 2 /LPF [facility] Urine (Urine, Random) 07/16/2025 1:40 PM EDT 07/16/2025 4:03 PM EDT us Farrah Renetta DO LAB URINE ORDERABLES Final R esult Performing Organization Address [facility] Co de Phone Number [facility] [address] [place] [phone] * Sed Rate by Modified Eduardoren (07/16/2025 1:40 PM EDT) Erythrocyte Sedimentation Rate 2 0 - 15 MM/HR [facility] Comment:Patients with polycy themia and many hemoglobin abnormalitiesmay have depressed sed rates whereas patients with anemiamay have elevated sed rates. Blood Venous blood specimen / Unknown 07/16/2025 1:40 PM EDT 07/16/2025 4:03 PM EDT us Farrah Renetta DO LAB BLOOD ORDERABLES Final R esult Performing Organization Address [facility] Co de Phone Number [facility] [address] [place] [phone] * C-reactive Protein (07/16/2025 1:40 PM EDT) C Reactive Protein 0.30 < or = 0.50 mg/dL [facility] Blood Venous blood specimen / Unknown 07/16/2025 1:40 PM EDT 07/16/2025 4:09 PM EDT us Farrah Renetta DO LAB BLOOD ORDERABLES Final R esult Performing Organization Address City/[facility] Co de Phone Number [facility] [address] [place] [phone] * TSH (07/16/2025 1:40 PM EDT) Thyroid Stimulating Hormone 1.75 0.32 - 4.0 uIU/mL [facility] Comment:TSH 3rd Generation ( [facility]) Blood Venous blood specimen / Unknown 07/16/2025 1:40 PM EDT 07/16/2025 4:09 PM EDT Farrah Chavessamantha DO LAB BLOOD ORDERABLES Final R esult [facility] [address] [place] [phone] * T4, Free (07/16/2025 1:40 PM EDT) Free T4 (Free Thyroxine) 0.95 0.71 - 1.85 ng/dL [facility] Blood Venous blood specimen / Unknown 07/16/2025 1:40 PM EDT 07/16/2025 4:09 PM EDT us Farrah Renetta DO LAB BLOOD ORDERABLES Final R esult Performing Organization Address City/[facility]/ZIP Co de Phone Number [facility] [address] [place] [phone] * (ABNORMAL) PSA,Total (07/16/2025 1:40 PM EDT) Prostate Specific Antigen 5.00(H) <0.05 - 4.0 ng/mL [facility] Comment:PSA methodology: Dilan Galindo i ChemiluminescentMicroparticle Immunoassay (CMIA) Blood Venous blood specimen / Unknown 07/16/2025 1:40 PM EDT 07/16/2025 4:03 PM EDT us Farrah Renetta DO LAB BLOOD ORDERABLES Final R esult [facility] [address] [place] [phone] * Prealbumin (07/16/2025 1:40 PM EDT) Prealbumin 25.0 20 - 40 mg/dL [facility] Blood Venous blood specimen / Unknown 07/16/2025 1:40 PM EDT 07/16/2025 4:03 PM EDT us Farrah Renetta DO LAB BLOOD ORDERABLES Final R esult Performing Organization Address City/[facility] Co de Phone Number [facility] [address] [place] [phone] * Hemoglobin A1c (07/16/2025 1:40 PM EDT) Hemoglobin A1c 5.8 <6.0 % [facility] Comment:Hemoglobin A1C Refer ence Range Adults: 4.8 - 6.0 % Non diabetic: < 6.0 % Goal: < 7.0 %Additional Action Suggested: > 8.0 %Note: Hemoglobin A1c results are invalid for patients with abnormal amounts of HbF. Blood transfusions may impact the HbA1c concentration in the patient sample. Estimated Average Glucose 120 mg/dL [facility] Comment:eAG = Estimated ave rage glucose which is %A1C expressed asaverage glucose, using the formula of the B2R-PtpzgqeKqsjgvw Glucose study (ADAG), Diabetes Care, Vol.31,#8,May. 2007 Blood Venous blood specimen / Unknown 07/16/2025 1:40 PM EDT 07/16/2025 4:03 PM EDT us Farrah Renetta DO LAB BLOOD ORDERABLES Final R esult Performing Organization Address City/[facility] Co de Phone Number [facility] [address] [place] [phone] * Hepatic Function Panel (07/16/2025 1:40 PM EDT) Only the most recent of2 resultswithin the time period is included. Bilirubin, Total 0.8 0.0 - 1.0 mg/dL [facility] Bilirubin, Direct 0.4 0.0 - 0.5 mg/dL [facility] Aspartate Amino Transferase 33 5 - 37 U/L [facility] Alanine Aminotransferase 23 0 - 40 U/L [facility] Total Protein 7.2 6.5 - 8.0 g/dL [facility] Albumin Level 4.3 3.5 - 5.0 g/dL [facility] Alkaline Phosphatase 58 39 - 117 U/L [facility] Blood Venous blood specimen / Unknown 07/16/2025 1:40 PM EDT 07/16/2025 4:09 PM EDT us Farrah Jackson DO LAB BLOOD ORDERABLES Final R esult Performing Organization Address [facility] Co de Phone Number [facility] [address] [place] [phone] * (ABNORMAL) Lipid Panel, Standard (07/16/2025 1:40 PM EDT) Triglycerides 46 <150 mg/dL [facility] Comment:Desirable Triglyceri de: less than 150 mg/dLBorderline High Triglyceride 150-199 mg/dLHigh Triglyceride: 200-499 mg/dLVery High Triglyceride: greater than or equal to 5OO mg/dL Cholesterol 87 <200 mg/dL [facility] Comment:Desirable Cholestero l: less than 200 mg/dLBorderline High Cholesterol: 200-239 mg/dLHigh Cholesterol: greater than 239 mg/dL LDL Cholesterol Calculated 42 <100 mg/dL [facility] Comment:Desirable LDL: less than 100 mg/dLNear Optimal/Above Optimal LDL: 110- 129 mg/dLBorderline High LDL: 130-159 mg/dLHigh LDL: 160-189 mg/dLVery High LDL: greater than or equal to 190 mg/dL HDL Cholesterol 36(L) >40 mg/dL [facility] Comment:Desirable HDL: great er than 40 mg/dL Note: This HDL assay may give artificially low results in patients with liver disease. Blood Venous blood specimen / Unknown 07/16/2025 1:40 PM EDT 07/16/2025 4:09 PM EDT us Farrah Jackson DO LAB BLOOD ORDERABLES Final R esult [facility] [address] [place] [phone] * Basic Metabolic Panel (07/16/2025 1:40 PM EDT) Only the most recent of2 resultswithin the time period is included. Sodium 143 135 - 145 mmol/L [facility] Potassium 3.9 3.3 - 5.1 mmol/L [facility] Chloride 108 96 - 108 mmol/L [facility] Carbon Dioxide 27 22 - 29 mmol/L [facility] Anion Gap 12 12 - 20 [facility] Urea Nitrogen (BUN) 15 9 - 16 mg/dL [facility] Creatinine, Serum 0.80 0.5 - 1.4 mg/dL [facility] Estimated Glomerular Filt Rate >60 [facility] Comment:Chronic Kidney Disea se: Estimated GFR < 60 mL/min/[id number] Kidney Disease: Estimated GFR < 15 mL/min/1.73m2 Glucose 83 60 - 115 mg/dL [facility] Calcium 9.6 8.4 - 10.2 mg/dL [facility] Blood Venous blood specimen / Unknown 07/16/2025 1:40 PM EDT 07/16/2025 4:09 PM EDT Farrah Jackson DO LAB BLOOD ORDERABLES Final R esult [facility] [address] [place] [phone] * POCT Hgb A1c (07/16/2025 12:27 PM EDT) Only the most recent of2 resultswithin the time period is included. Hemoglobin A1C 5.5 4.0 - 5.7 % [employer] Lot # [id number] Lot# Expiration Date ,373 Blood 07/16/2025 12:2 7 PM EDT us Farrah Jackson DO POINT OF CARE TEST ENTER/NILESH T ORDERABLES Final Result * POCT Glucose (07/16/2025 12:26 PM EDT) Only the most recent of2 resultswithin the time period is included. Glucose Blood, POC 104 60 - 200 mg/dL [employer] Lot # [id number] Lot# Expiration Date [id number] Blood Capillary blood specimen / Unknown 07/16/2025 12:26 PM EDT Farrah Jackson DO POINT OF CARE TEST ENTER/NILESH T ORDERABLES Final Result * XR Chest 2 Views (06/20/2025 10:42 PM EDT) Only the most recent of2 resultswithin the time period is included. Anatomical Region Laterality Modality Chest Radiographic Dasia ging 06/20/2025 10:4 2 PM EDT Narrative 06/20/2025 10:44 PM EDT [place] [address] XRay Report Signed Patient: Sonny Curiel MR#: [id number] : 1960 Acct:[id number] Age/Sex: 64 / M ADM Date: 06/20/25 Loc: .ED Attending Dr: Ordering Physician: Tamiko Luan MD Date of Service: 06/20/25 Procedure(s): XR chest 2V Accession Number(s): [id number] cc: Tamiko Luna MD; Farrah Jackson DO CLINICAL HISTORY: sob --- Additional Notes or Special Instructions: with doctor-09:21pm Chest X-ray, 2 Views COMPARISON: CR/SR - XR CHEST 2 VIEWS - 05/29/25 16:16 EDT CR - XR CHEST 2V - 03/17/25 11:07 EDT CR/WV/SR - XR CHEST 2V - 12/19/22 11:51 [...] in OV> 06/20/252242 DD/ 41 TD/TT: 06/20/252241 Engineer Technical Staff: Procedure Note Donotuseinterpreter, Image - 06/20/2025 [place] [address] XRay Report Signed Patient: Emily Curiel#: [id number] : 9Acct:[id number] Age/Sex: 64 / MADM Date: 06/20/25 Loc: .ED Attending Dr: Ordering Physician: Tamiko Luna MD Date of Service: 06/20/25 Procedure(s): XR chest 2V Accession Number(s): [id number] cc: Tamiko Luna MD; Farrah Jackson DO CLINICAL HISTORY: sob --- Additional Notes or Special Instructions: withdoctor-09:21pm Chest X-ray, 2 Views COMPARISON: CR/SR - XR CHEST 2 VIEWS - 05/29/25 16:16 EDT CR - XR CHEST 2V - 03/17/25 11:07 EDT CR/WV/SR - XR CHEST 2V - 12/19/22 11:51 [...] in OV> 06/20/252242 DD/ 41 TD/TT: 06/20/252241 Engineer Technical Staff: [facility] External Provider IMG XR PROCEDURES Edited Result - Final * High Sensitivity Troponin I (06/20/2025 9:37 PM EDT) Only the most recent of3 resultswithin the time period is included. [facility] TROPONIN I HIGH SENSITIVITY 11.7 <3.5 - 35.0 ng/L [facility] Comment:The [place] high sens itivity Troponin-I results should beused in conjunction with other diagnostic information suchas ECG, clinical observations and information, and patientsymptoms to aid in the diagnosis of [place]. 06/20/2025 9:37 PM EDT 06/20/2025 9:40 PM EDT Generic External Data Provider LAB BLOOD ORDERAB LES Final Result Performing Organization Address [facility] Co de Phone Number [facility] [address] [place] [phone] * (ABNORMAL) B Type Natriuretic Peptide (BNP) (06/20/2025 9:37 PM EDT) Only the most recent of2 resultswithin the time period is included. Pathologist [facility] B Type Natriuretic Peptide 3,006(H) <100 pg/mL [facility] 06/20/2025 9:37 PM EDT 06/20/2025 9:40 PM EDT Generic External Data Provider LAB BLOOD ORDERAB LES Final Result Performing Organization Address City/[facility]/ZIP Co de Phone Number [facility] [address] [place] [phone] * Influenza A B2 ID NOW ([place]) (06/20/2025 6:41 PM EDT) IDNOW SERIAL# [id number] [facility] Influenza A Negative Negative [facility] Influenza B2 Negative Negative [facility] Influenza A B2 Note See Note [facility] Comment:The [place] ID NOW In [...] LAB MICROBIOLOGY - GENERAL ORDERABLES Final Result [facility] [address] [place] [phone] * COVID-19 ID NOW ([place]) (06/20/2025 6:41 PM EDT) IDNOW SERIAL# [id number] [facility] COVID-19 TEST Negative Negative [facility] COVID-19 NOTE See Note [facility] Comment: Results are for the identification of SARS-CoV2 RNA. TheSARS-CoV2 RNA is generally detectable in respiratory samplesduring the acute phase of infection. Positive results areindicative of the presence of SARS-CoV-2 RNA; clinicalcorrelation with patient history and other diagnosticinformation is necessary to determine patient infectionstatus. Positive results do not rule out bacterial infectionor co- infection with other viruses.Testing facilities within the [facility] and [facility] are required to report all positive results [...] use by authorized laboratories.Testing performed on the [employer] NOW utilizing NAAT. 06/20/2025 6:41 PM EDT 06/20/2025 6:45 PM EDT us Generic External Data Provider LAB MOLECULAR RENETTA GNOSTICS ORDERABLES Final Result [facility] [address] [place] [phone] * (ABNORMAL) Comprehensive Metabolic Panel (06/20/2025 6:41 PM EDT) Sodium 140 135 - 145 mmol/L [facility] Potassium 5.1 3.3 - 5.1 mmol/L [facility] Comment:Mild Hemolysis.Inter pret result with caution Chloride 111(H) 96 - 108 mmol/L [facility] Carbon Dioxide 20(L) 22 - 29 mmol/L [facility] Anion Gap 14 12 - 20 [facility] Urea Nitrogen (BUN) 18(H) 9 - 16 mg/dL [facility] Creatinine, Serum 0.73 0.5 - 1.4 mg/dL [facility] Creatinine Clr Calc Pharmacy 93.0 [facility] Comment:eGFR (calculated fro m the MDRD study equation) and eCrCl(calculated from the Cockcroft-Gault equation) are based ondifferent parameters and may not yield comparable results.If eCrCl result is absurd, please check patient'sheight/weight. Estimated Glomerular Filt Rate >60 [facility] Comment:Chronic Kidney Disea se: Estimated GFR < 60 mL/min/[id number] Kidney Disease: Estimated GFR < 15 mL/min/1.73m2 Glucose 119(H) 60 - 115 mg/dL [facility] Calcium 9.0 8.4 - 10.2 mg/dL [facility] Bilirubin, Total 1.8(H) 0.0 - 1.0 mg/dL [facility] Aspartate Amino Transferase 52(H) 5 - 37 U/L [facility] Comment:Mild Hemolysis.Inter pret result with caution Alanine Aminotransferase 41(H) 0 - 40 U/L [facility] Total Protein 7.1 6.5 - 8.0 g/dL [facility] Comment:Mild Hemolysis.Inter pret result with caution Albumin Level 4.0 3.5 - 5.0 g/dL [facility] Alkaline Phosphatase 64 39 - 117 U/L [facility] 06/20/2025 6:41 PM EDT 06/20/2025 6:45 PM EDT us Generic External Data Provider LAB BLOOD ORDERAB LES Final Result Performing Organization Address City/State/[facility] Co de Phone Number [facility] [address] [place] [phone] * CT Abdomen Pelvis w/ Contrast (05/30/2025 2:12 AM EDT) Anatomical Region Laterality Modality Body, Pelvis, Abdomen Computed T omography 05/30/2025 2:12 AM EDT Narrative 05/30/2025 2:14 AM EDT [address] [address] [address] Scan Report Signed Patient: Sonny Curiel MR#: [id number] : 1960 Acct:[id number] Age/Sex: 64 / M ADM Date: 05/29/25 Loc: HO.ED Attending Dr: Ordering Physician: Deepa Noe DO Date of Service: 05/30/25 Procedure(s): CT abdomen pelvis w IV con Accession Number(s): [id number] cc: Deepa Noe DO; Farrah Jackson DO Report Number: [id number]: Total DLP = 467.00 mGy-cm CLINICAL HISTORY: RLQ abd pain eval for appy --- Additional Notes or Special Instructions: oral contrast started at 2220. jat CT abdomen and pelvis with contrast Comparison: CT - CT ABDOMEN PELVIS W IV CON - 05/30/25 00:[address]/WV/SR - CT ABDOMEN PELVIS WITH IV CONTRAST [...] in OV> 05/30/25212 DD/ 1 TD/TT: 05/30/25211 Engineer Technical Staff: Procedure Note Donotuseinterpreter, Image - 05/30/[address] [place] [address] [address] Scan Report Signed Patient: Emily Curiel#: [id number] : 9Acct:[id number] Age/Sex: 64 / MADM Date: 05/29/25 Loc: HO.ED Attending Dr: Ordering Physician: Deepa Noe DO Date of Service: 05/30/25 Procedure(s): CT abdomen pelvis w IV con Accession Number(s): [id number] cc: Deepa Noe DO; Farrah Jackson DO Report Number: [id number]: Total DLP = 467.00 mGy-cm CLINICAL HISTORY: RLQ abd pain eval for appy --- Additional Notes orSpecial Instructions: oral contrast started at 2220. jat CT abdomen and pelvis with contrast Comparison: CT - CT ABDOMEN PELVIS W IV CON - 05/30/25 00:[address]/WV/SR - CT ABDOMEN PELVIS WITH IV CONTRAST [...] in OV> 05/30/25212 DD/ 1 TD/TT: 05/30/25211 Engineer Technical Staff: [facility] External Provider IMG CT PROCEDURES Final Result * (ABNORMAL) Urinalysis, Complete, with Reflex to Culture (05/29/2025 9:04 PM EDT) Color Urine Yellow [facility] Appearance Urine Clear [facility] PH 5.5 5.0 - 9.0 [facility] Glucose Urine UA >=1000(A) Negative mg/dL [facility] Urine Blood Negative Negative [facility] Specific [place] - Urine >=1.030(H) 1.005 - 1.025 [facility] Urine Protein Trace Neg-Trace mg/dL [facility] Urine Ketones 15 Negative mg/dL [facility] Nitrite Urine Negative Negative [facility] Leukocyte Esterase Urine Negative Negative [facility] RBC Urine 0-2 0 - 2 /HPF [facility] Urine WBC 0-5 0 - 5 /HPF [facility] Urine Squamous Epithelial Cell 0-2 0 - 2 /HPF [facility] Urine Bacteria None Seen None Seen [facility] Hyaline Casts, Urine 0-2 0 - 2 /LPF [facility] 05/29/2025 9:04 PM EDT 05/29/2025 9:07 PM EDT Narrative [facility] - 05/29/2025 9:37 PM EDT 2055Urine, Clean Catch us Generic External Data Provider LAB URINE ORDERAB LES Final Result [facility] [address] [place] [phone] * SARS-CoV-2 RNA, Influenza A/B, and RSV RNA, Ql NAAT (05/29/2025 4:29 PM EDT) Influenza A PCR NEGATIVE Negative [facility] Influenza B PCR NEGATIVE Negative [facility] Resp Syncy Virus RNA Qual PCR NEGATIVE Negative [facility] SARS COV2 PCR NEGATIVE Negative [facility] Comment:All test results mus t [...] use by authorized laboratories.Testing performed on the [employer] GeneXpert utilizingreal-time RT-PCR.All SARS CoV2 and positive influenza A/B results arereported to [facility]. 05/29/2025 4:29 PM EDT 05/29/2025 4:35 PM EDT Generic External Data Provider LAB MICROBIOLOGY - GENERAL ORDERABLES Final Result Performing Organization Address [facility] Co de Phone Number [facility] [address] [place] [phone] * Magnesium (05/29/2025 4:29 PM EDT) Magnesium 1.7 1.6 - 2.6 mg/dL [facility] 05/29/2025 4:29 PM EDT 05/29/2025 4:35 PM EDT Generic External Data Provider LAB BLOOD ORDERAB LES Final Result Performing Organization Address [facility] de Phone Number [facility] [address] [place] [phone] * Lipase (05/29/2025 4:29 PM EDT) Lipase 25 8 - 78 U/L [facility] 05/29/2025 4:29 PM EDT 05/29/2025 4:35 PM EDT Generic External Data Provider LAB BLOOD ORDERAB LES Final Result Performing Organization Address [facility] de Phone Number [facility] [address] [place] [phone] * Cologuard?? colon cancer screening (08/26/2023 12:36 PM EDT) Cologuard Result Negative Negative 09/02/20 23 1:54 AM EST [email or web address] (CLIA #:[id number]) Comment: NEGATIVE TEST RESULT. A negative Cologuard [...] Toussaint et al, N Engl J Med 2014;370(14):0683-1311) The normal value (reference range) for this assay is negative. COLOGUARD RE-SCREENING RECOMMENDATION: Periodic colorectal cancer screening is an important part of preventive healthcare for asymptomatic individuals at average risk for colorectal cancer. Following a negative Cologuard result, the [place] [employer] Society and U.S. Multi-Society Task Force screening guidelines recommend a Cologuard re-screening interval of 3 years. References: [place] [employer] Guideline for Colorectal Cancer Screening: https://www.cancer.org/cancer/ebnss-vkcych-czyrnu/rgnkuvxpt-upvsdqmwx-cmzjfsm/ac s-rec ommendations.html.; Matty DK, Krys HALL, Shelton CoreaK, Colorectal Cancer Screening: Recommendations for Physicians and Patients from the U.S. Multi-Society Task Force on Colorectal Cancer Screening , Am J Gastroenterology 2017; 112:9526-1763. TEST DESCRIPTION: Composite algorithmic analysis of stool [...] Toussaint et al, N Engl J Med 2014;370(14):4595-0867.) Cologuard may produce a false negative or false positive result (no colorectal cancer or precancerous polyp present at colonoscopy follow up). A negative Cologuard test result does not guarantee the absence of CRC or advanced adenoma (pre-cancer). The current Cologuard screening interval is every 3 years. ([place] [employer] Society and U.S. Multi-Society Task Force). Cologuard performance data in a 10,000 patient pivotal study using colonoscopy as the reference method can be accessed at the following location: www.[employer]/results. Additional description of the Cologuard test process, warnings and precautions can be found at www.[employer].AgSquared. Stool specimen (specimen) 08/26/2023 12:36 PM EDT 08/27/2023 6:19 PM EDT Farrah Jackson DO LAB MOLECULAR DIAGNOSTICS OR DERABLES Final Result [email or web address] (CLIA #:[id number]) [place] [address], from Last 3 Months or Most Recently Relevant to Health Maintenance Insurance [facility] OPTIONS (HMO D-SNP) BEULAH GREGORY [id number] DENTAL - [facility] Care Teams Loan Collector Relationship Specialty Start Date End Date Farrah Jackson DO [address] [place] [phone] PCP - General Family Medicine 10/25/18
--- OUTSIDE RECORDS SUMMARY | 2025-07-17 15:06 | XMS_ITS | Encounter Summary ---
Author Organization [employer] Address [address] [place] [address] Care Team Providers Care Microbiology Lab Analyst Name Role Phone Farrah Jackson DO Primary Care Provider + [phone] Reason for Visit * Reason Onset Date Comments CHART PREP 07/13/2025 Encounter Details Date Type Department Care Team ([facility] Contact Info) Description 07/13/2025 Telephone [facility] MEDICINE [address] [place], [place] [phone] Farrah Jackson DO [address] [place], [place] [phone] CHART PREP Social History Tobacco Use Types Packs/Day Years [...] Telephone Encounter - Magda Dennison [place] - 07/13/2025 3:53 PM EDT .Chart Prep Labs: done Images: done Referrals: complete Vaccines due: Covid, Flu, RSV, Hep A and Hep B Screenings: foot exam, eye exam Overdue care gaps: A1c, Glucose, PHQ-9 and JARRED-7 * Telephone Encounter - Kathleen Milan MA - 07/13/2025 2:19 PM EDT .Chart Prep Labs: done Images: done Referrals: complete Vaccines due: Hep B and Hep A Screenings: foot exam Overdue care gaps: Glucose documented in this encounter Plan of Treatment Upcoming Encounters Date Type Department Care Team (Late st Contact Info) Description 07/23/2025 11:30 AM EDT Clinical Support [facility] MEDICINE [address] [place] [address] 09/10/2025 1:00 PM EST Office Visit [facility] [address] [place] [address] Ludwigtali Marie, OD [address] [place], [place] [phone] documented as of this encounter Visit Diagnoses Not on filedocumented in this encounter Additional Health Concerns Assessment Noted Time PHQ-9 Depression Total Score: 1 06/08/20 25 12:18 PM EDT documented as of this encounter Care Teams Microbiology Lab Analyst Relationship Specialty Start Date End Date Farrah Jackson DO [address] [place] [phone] PCP - General Family Medicine 10/25/18 documented as of this encounter
--- OUTSIDE RECORDS SUMMARY | 2025-07-17 15:07 | XMS_ITS | Encounter Summary ---
Author Organization [employer] Address [address] [place] [address] Care Team Providers Care General Engineer Name Role Phone Farrah Jackson DO Primary Care Provider + [phone] Reason for Visit * Reason Onset Date Comments pain medication to pharmacy 05/22/2024 Encounter Details Date Type Department Care Team ([facility] st Contact Info) Description 05/22/2024 Telephone [facility] [address] [place] [address] Farhad Knott, DMD [address] [place] [address] pain medication to pharmacy Social History Tobacco [...] Description 07/23/2025 11:30 AM EDT Clinical Support [facility] MEDICINE [address] [place] [address] 09/10/2025 1:00 PM EST Office Visit [facility] [address] [place] [address] Marie Zhao, OD [address] [place] [address] documented as of this encounter Visit Diagnoses Not on filedocumented in this encounter Additional Health Concerns Assessment Noted Time PHQ-9 Depression Total Score: 2 04/21/20 24 8:50 AM EDT documented as of this encounter Care Teams General Engineer Relationship Specialty Start Date End Date Farrah Jackson DO [address] [place] [address] PCP - General Family Medicine 10/25/18 documented as of this encounter
--- OUTSIDE RECORDS SUMMARY | 2025-07-17 15:07 | XMS_ITS | Encounter Summary ---
Author Organization [employer] Address [address] [place] [address] Care Team Providers Care Bus Cleaner Name Role Phone Farrah Jackson DO Primary Care Provider + [phone] Reason for Visit * Reason Comments Med Refill Encounter Details Date Type Department Care Team ([facility] Contact Info) Description 07/10/2024 Refill [facility] MEDIC[facility] [address] [place], [place] [phone] Farrah Jackson DO [address] [place], [place] [phone] Social History Tobacco Use Types Packs/Day Years [...] Description 07/23/2025 11:30 AM EDT Clinical Support [facility] MEDIC[facility] [address] [place] [address] 09/10/2025 1:00 PM EST Office Visit [facility] [address] [place] [address] Marie Zhao, OD [address] [place] [address] documented as of this encounter Visit Diagnoses Not on filedocumented in this encounter Additional Health Concerns Assessment Noted Time PHQ-9 Depression Total Score: 2 04/21/20 24 8:50 AM EDT documented as of this encounter Care Teams Bus Cleaner Relationship Specialty Start Date End Date Farrah Jackson DO [address] [place] [address] PCP - General Family Medicine 10/25/18 documented as of this encounter
--- OUTSIDE RECORDS SUMMARY | 2025-07-17 15:07 | XMS_ITS | Encounter Summary ---
Author Organization [employer] Address [address] [place] [address] Care Team Providers Care Explosion Welder Name Role Phone Meagan Jacksonfer Primary Care Provider + [phone] Reason for Visit * Reason Comments Med Refill Encounter Details Date Type Department Care Team ([facility] Contact Info) Description 01/11/2025 Refill [facility] MEDICINE [address] [place], [place] [phone] Alexsandra Luevano MD [address] [place], [place] [phone] Primary hypertension Social History Tobacco Use Types [...] Clinical Support [facility] [address] [place] [address] 09/10/2025 1:00 PM EST Office Visit [facility] [address] [place] [address] Marie Zhao, OD [address] [place] [address] documented as of this encounter Visit Diagnoses Diagnosis Primary hypertension Unspecified essential hypertension documented in this encounter Additional Health Concerns Assessment Noted Time PHQ-9 Depression Total Score: 2 04/21/20 24 8:50 AM EDT documented as of this encounter Care Teams Explosion Welder Relationship Specialty Start Date End Date Farrah Jackson DO [address] [place] [address] PCP - General Family Medicine 10/25/18 documented as of this encounter
--- OUTSIDE RECORDS SUMMARY | 2025-07-17 15:07 | XMS_ITS | Encounter Summary ---
Author Organization [employer] Address [address] [place] [address] Care Team Providers Care Research Programmer Name Role Phone Farrah Jackson DO Primary Care Provider + [phone] Reason for Visit * Reason Comments Med Refill Encounter Details Date Type Department Care Team ([facility] Contact Info) Description 11/14/2023 Refill [facility] MED[facility] [address] [place], [place] [phone] Farrah Jackson DO [address] [place], [place] [phone] Social History Tobacco Use Types Packs/Day Years [...] Description 07/23/2025 11:30 AM EDT Clinical Support [facility] MEDICINE [address] [place] [address] 09/10/2025 1:00 PM EST Office Visit [facility] [address] [place] [address] Marie Zhao, OD [address] [place] [address] documented as of this encounter Visit Diagnoses Not on filedocumented in this encounter Care Teams Research Programmer Relationship Specialty Start Date End Date Farrah Jackson DO [address] [place] [address] PCP - General Family Medicine 10/25/18 documented as of this encounter
[2025-07-17 16:55] LABS: E. coli EAEC Not Detected (Not Detect.); E. coli EPEC Not Detected (Not Detect.); E. coli ETEC Not Detected (Not Detect.); E. coli STEC Not Detected (Not Detect.); Shigella sp./EIEC Not Detected (Not Detect.)
== END 2025-07-17 12:13 | disposition home or self-care (01) ==
LOC: HO.HHCLNP 12:12
PROVIDERS: Visit Provider Family Medicine
DX: R63.4 Abnormal weight loss (principal)
CPT/HCPCS: 87507; 89055

== ENCOUNTER 2025-07-21 09:59 | Emergency (ER) | payer OTHER, SELFPAY ==
--- OUTSIDE RECORDS SUMMARY | 2025-07-16 12:00 | XMS_ITS | Encounter Summary ---
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 Name Role Phone Farrah Jackson DO Primary Care Provider [phone] Reason for Referral * Consultation (STAT) - Authorized Specialty Diagnoses / Procedures Referred By Juju skaggs Referred To Contact Gastroenterology Diagnoses Unintentional weight loss Farrah Jackson DO [address] [place] [address] Phone: tel: fax: [facility] [address] [place] [address] Phone: tel: fax: Referral ID Status Reason Start Date Expiration Date Visits Requested Visits Authorized [id number] Authorized Specialty Services Required 07/16/2025 07/16/2026 1 1 * Imaging (Routine) - Authorized Specialty Diagnoses / Procedures Referred By Juju skaggs Referred To Contact Cardiology Diagnoses History of tobacco use Procedures Vascular US abdominal aorta anuerysm AAA screening Farrah Jackson DO [address] [place] [address] Phone: tel: fax: [facility] [address] [place], [place] Phone: tel: fax: Referral ID Status Reason Start Date Expiration Date Visits Requested Visits Authorized [id number] Authorized Perform Procedure 07/16/2025 07/16/2026 1 1 * Imaging (Routine) - Authorized Specialty Diagnoses / Procedures Referred By Contac t Referred To Contact Radiology Diagnoses Type 2 diabetes mellitus with microalbuminuria, without long-term current use of insulin ([facility] [place]) Unintentional weight loss Procedures NM Gastric Emptying Solid Farrah Jackson DO [address] [place] [address] Phone: tel: fax: [address] Phone: tel: fax: Referral ID Status Reason Start Date Expiration Date V isits Requested Visits Authorized [id number] Authorized 07/16/2025 07/16/2026 3 3 * Imaging (Routine) - Pending Review Specialty Diagnoses / Procedures Referred By Contac t Referred To Contact Radiology Diagnoses Unintentional weight loss Procedures CT Abdomen Pelvis w/ Contrast Farrah Jackson DO [address] [place] [address] Phone: tel: fax: [address] Phone: tel: fax: Referral ID Status Reason Start Date Expiration Date V isits Requested Visits Authorized [id number] Pending Review 07/16/2025 07/16/2026 1 1 * Imaging (Routine) - Pending Review Specialty Diagnoses / Procedures Referred By Contac t Referred To Contact Radiology Diagnoses Unintentional weight loss Procedures CT Chest w/ Contrast Farrah Jackson DO [address] [place] [address] Phone: tel: fax: [address] Phone: tel: fax: Referral ID Status Reason Start Date Expiration Date V isits Requested Visits Authorized [id number] Pending Review 07/16/2025 07/16/2026 1 1 * Imaging (Routine) - Pending Review Specialty Diagnoses / Procedures Referred By Juju t Referred To Contact Radiology Diagnoses Forgetfulness Procedures MR Brain w/o Contrast Farrah Jackson DO [address] [place] [address] Phone: tel: fax: [address] Phone: tel: fax: Referral ID Status Reason Start Date Expiration Date V isits Requested Visits Authorized [id number] Pending Review 07/16/2025 07/16/2026 1 1 Reason for Visit * Reason Comments sick onsite Encounter Details Date Type Department Care Team (Latest Contact Info) Description 07/16/2025 12:00 PM EDT Office Visit [facility] [address] [place] [address] Farrah Jackson DO [address] [place] [address] Unintentional weight loss (Primary Dx); Forgetfulness; History of tobacco use; Type 2 diabetes mellitus with microalbuminuria, without long-term current use of insulin ([facility]); Encounter for immunization Social History [...] Not at all 07/16/2025 1:30 PM EDT Wedny Holguin [place] * Trouble falling or staying [...] referred for PFTs and has appointment in Nov. He had repeat CPAP titration the same [...] He has no family h/o dementia. 07/16/25 [facility] Can't recall president name -> recalled [...] RN -consider evaluation with neurology -advised contact [facility] if symptoms change or worsen - [...] microalbuminuria, without long-term current use of insulin ([facility]) - POCT Glucose - POCT Hgb A1c - NM Gastric Emptying Solid; Future Encounter for immunization - FLU VACCINE TRIVALENT HIGH DOSE [phone] (Fluzone) 65 yrs + F/U with me [...] morning., Disp: , Rfl: TRUEplus Lancets 33G misc, USE TO TEST BLOOD SUGAR TWICE DAILY, Disp: 100 each, Rfl: 5 documented in this encounter Plan of Treatment Upcoming Encounters Date Type Department Care Team (Late st Contact Info) Description 07/23/2025 11:30 AM EDT Clinical Support [facility] [address] [place] [address] 09/10/2025 1:00 PM EST Office Visit [facility] [address] [place] [address] Marie Zhao, OD [address] [place] [address] Scheduled Orders Name Type Priority Associated Diagnoses Orde r Schedule Chlamydia/N. Gonorrhoeae RNA, TMA, Urogenitial Microbiology Routine Type 2 diabetes mellitus with microalbuminuria, without long-term current use of insulin ([facility]) Forgetfulness Unintentional weight loss Ordered: 07/16/2025 MR Brain w/o Contrast Imaging Routine Forgetfulness Expected: 07/16/2025, Expires: 07/16/2026 CT Chest w/ Contrast Imaging Routine Unintentional weight loss Expected: 07/16/2025, Expires: 07/16/2026 CT Abdomen Pelvis w/ Contrast Imaging Routine Unintentional weight loss Expected: 07/16/2025, Expires: 07/16/2026 NM Gastric Emptying Solid Imaging Routine Type 2 diabetes mellitus with microalbuminuria, without long-term current use of insulin ([facility]) Unintentional weight loss Expected: 07/16/2025, Expires: 07/16/2026 Scheduled Referrals Name Type Priority Associated Diagnoses Order Schedule Referral to Gastroenterology Outpatient Referral STAT Unintentional weight loss Expected: 07/16/2025 (Approximate), Expires: 07/16/2026 documented as of this encounter Procedures Procedure Name Priority Date/Time Associated Diagnosis Comments LEUKOCYTES STOOL QUALITATIVE Routine 07/17/2025 9:40 AM EDT Unintentional weight loss GASTROINTESTINAL PANEL Routine 9:40 AM EDT Unintentional weight loss VITAMIN D,25-OH,TOTAL,IA Routine 025 1:40 PM EDT Type 2 diabetes mellitus with microalbuminuria, without long-term current use of insulin ([facility]) Forgetfulness Unintentional weight loss VITAMIN B12/FOLATE, SERUM PANEL Routine 07/16/2025 1:40 PM EDT Type 2 diabetes mellitus with microalbuminuria, without long-term current use of insulin (CMS/HCC) Forgetfulness Unintentional weight loss T-SPOT(R).TB Routine 07/16/2025 1:40 PM EDT Type 2 [...] Unintentional weight loss HEPATIC FUNCTION PANEL Routine 1:40 PM EDT Type 2 diabetes mellitus with microalbuminuria, without long-term current use of insulin (CMS/HCC) Forgetfulness Unintentional weight loss LIPID PANEL, STANDARD Routine 07/16/2025 1:40 PM EDT Type 2 diabetes mellitus with microalbuminuria, without long-term current use of insulin (CMS/HCC) Forgetfulness Unintentional weight loss BASIC METABOLIC PANEL Routine 07/16/2025 1:40 PM EDT Type 2 diabetes mellitus with microalbuminuria, without long-term current use of insulin (CMS/HCC) Forgetfulness Unintentional weight loss POCT GLYCATED HEMOGLOBIN, TOTAL Routine 07/16/2025 12:27 PM EDT Type 2 diabetes mellitus with microalbuminuria, without long-term current use of insulin (CMS/HCC) POCT GLUCOSE Routine 07/16/2025 12:26 PM EDT Type 2 diabetes mellitus with microalbuminuria, without long-term current use of insulin (CMS/HCC) documented in this encounter Results * Stool - Gastrointestinal panel (07/17/2025 9:40 AM EDT) Campylobacter Not Detected Not Detect. [facility] Plesiomonas shigelloides Not Detected Not Detect. [facility] Salmonella Not Detected Not Detect. [facility] Vibrio Not Detected Not Detect. [facility] Vibrio cholerae Not Detected Not Detect. [facility] YERSINIA ENTEROCOLITICA Not Detected Not Detect. [facility] Enteroaggregative E. coli (EAEC) Not Detected Not Detect. [facility] Enteropathogenic E. coli (EPEC) Not Detected Not Detect. [facility] Enterotoxigenic E. coli (ETEC) lt/st Not Detected Not Detect. [facility] Shiga-like toxin-producing E. coli (STEC) stx1/stx2 Not Detected Not Detect. [facility] E coli O157 Not applicable Not Detect. [facility] Comment:E. coli containing t he O157 antigen are a subset ofShiga-like toxin- producing E. coli (STEC). Shigella/Enteroinvasive E. coli (EIEC) Not Detected Not Detect. [facility] Cryptosporidium Not Detected Not Detect. [facility] Cyclospora cayetanensis Not Detected Not Detect. [facility] Entamoeba histolytica Not Detected Not Detect. [facility] Giardia lamblia Not Detected Not Detect. [facility] Adenovirus F 40/41 Not Detected Not Detect. [facility] Astrovirus Not Detected Not Detect. [facility] Norovirus GI/GII Not Detected Not Detect. [facility] Rotavirus A Not Detected Not Detect. [facility] Sapovirus Not Detected Not Detect. [facility] Comment: All results must be correlated with clinical findings.Negative results do not exclude the possibility ofgastrointestinal infection and should not be used as thesole basis for diagnosis, treatment, or other managementdecisions. Virus, bacteria, and parasite nucleic acid maypersist in vivo independently of organism viability.Additionally, some organisms may be carriedasymptomatically.Detection of organism targets does not imply that thecorresponding organisms are infectious or are the causativeagents for clinical symptoms. There is a risk of falsenegative values due to the presence of sequence variants inthe gene targets of the assay, amplification inhibitors inspecimens, or inadequate numbers of organisms foramplification.The identification of several diarrheagenic E. colipathotypes has historically relied upon phenotypiccharacteristics. This panel targets genetic determinantscharacteristic of most pathogenic strains, but may notdetect all strains having phenotypic characteristics of apathotype.The performance of this test has not been established formonitoring treatment of infection with any of the panelorganisms.This assay is performed by Multiplexed PCR, utilizing [employer] Array. Stool Rectal contents / Unknown 07/17/2025 9:40 AM EDT 07/17/2025 12:13 PM EDT Farrah Jackson DO LAB MICROBIOLOGY - GENERAL O RDERABLES Final Result Performing Organization Address [facility]/ZIP Co de Phone Number [facility] [address] [place] [phone] * Leukocytes Stool Qualitative (07/17/2025 9:40 AM EDT) Leukocytes Stool Qualitative NEGATIVE NEGATIVE [facility] Stool 07/17/2025 9:40 AM EDT 07/17/2025 12:13 PM EDT Farrah Jackson DO LAB BODY FLUIDS AND STOOLS O RDERABLES Final Result Performing Organization Address [facility] Phone Number [facility] [address] [place] [phone] * Vitamin B12 (Cobalamin) and Folate Panel, Serum (07/16/2025 1:40 PM EDT) Vitamin B12 365 200 - 900 pg/mL [facility] Comment:NORMAL 200-900 PG/ML INDETERMINATE 160-199 PG/ML DEFICIENT < 160 PG/ML Folate >20.0 > or = 4.0 ng/mL [facility] Comment:Reference Values:> o r = 4.0 [...] ORDERABLES Final R esult Performing Organization Address [facility] Co de Phone Number [facility] [address] [place] [phone] * Alpha-Fetoprotein, Tumor Marker (07/16/2025 1:40 PM EDT) Alpha Fetoprotein 1.1 <6.1 ng/mL [facility] Comment:This test was perfor med using the Malorie Coulterchemiluminescent method. Values obtained fromdifferent assay methods cannot be usedinterchangeably. AFP levels, regardless ofvalue, should not be interpreted as absoluteevidence of the presence or absence of disease.THIS TEST WAS PERFORMED AT:[facility] [place] [id number] SOTO MD Blood Venous blood specimen / Unknown 07/16/2025 1:40 PM EDT 07/16/2025 4:09 PM EDT Farrah Jackson DO LAB BLOOD ORDERABLES Final R esult [facility] [address] [place] [phone] * (ABNORMAL) CBC auto differential (07/16/2025 1:40 PM EDT) Pathologist [facility] White Blood Count 7.7 4.8 - 10.8 X10*3/uL [facility] Red Blood Count 4.45(L) 4.60 - 5.80 X10*6/uL [facility] Hemoglobin 13.2(L) 14.0 - 18.0 g/dl [facility] Hematocrit 40.4(L) 42.0 - 52.0 % [facility] Mean Corpuscular Volume 90.8 80.0 - 98.0 fL [facility] Mean Corpuscular Hemoglobin 29.7 27.0 - 33.0 pg [facility] Mean Corpuscular HGB Conc 32.7 31.0 - 36.0 g/dl [facility] Red Cell Distribution Width 16.6(H) 11.0 - 16.0 % [facility] Platelet Count 221 160 - 400 X10*3/uL [facility] Mean Platelet Volume 10.6 9.4 - 12.4 fL [facility] Neutrophils Percent Auto 66.6 45 - 73 % [facility] Imm Gran Pct Auto 0.4 0.0 - 0.4 % [facility] Lymphocytes Percent Auto 21.3 20 - 40 % [facility] Monocytes Percent Auto 10.1 2 - 11 % [facility] Eosinophils Percent Auto 1.0 0 - 4 % [facility] Basophils Percent Auto 0.6 0 - 2 % [facility] NRBC Pct Auto 0.0 0.0 - 0.2 /100WBC [facility] Neutrophils Absolute Auto 5.1 2.0 - 8.3 x10*3/uL [facility] Imm Gran Abs Auto 0.03 0.00 - 0.03 X10*3/uL [facility] Lymphocytes Absolute Auto 1.7 1.2 - 4.9 X10*3/uL [facility] Monocytes Absolute Auto 0.8 0.1 - 1.2 X10*3/uL [facility] Eosinophils Absolute Auto 0.1 0.0 - 0.4 X10*3/uL [facility] Basophils Absolute Auto 0.1 0.0 - 0.2 X10*3/uL [facility] NRBC Abs Auto 0.000 0.0 - 0.012 X10*3/uL [facility] Blood Venous blood specimen / Unknown 07/16/2025 1:40 PM EDT 07/16/2025 4:03 PM EDT us Farrah Jackson DO LAB BLOOD ORDERABLES Final R esult [facility] [address] [place], [place] [phone] * C-reactive Protein (07/16/2025 1:40 PM EDT) C Reactive Protein 0.30 < or = 0.50 mg/dL [facility] Blood Venous blood specimen / Unknown 07/16/2025 1:40 PM EDT 07/16/2025 4:09 PM EDT Farrah Jackson DO LAB BLOOD ORDERABLES Final R formerly [facility] Performing Organization Address [facility] Co de Phone Number [facility] [address] [place] [phone] * (ABNORMAL) PSA,Total (07/16/2025 1:40 PM EDT) Pathologist [facility] Prostate Specific Antigen 5.00(H) <0.05 - 4.0 ng/mL [facility] Comment:PSA methodology: Dilan Galindo i ChemiluminescentMicroparticle Immunoassay (CMIA) Blood Venous blood specimen / Unknown 07/16/2025 1:40 PM EDT 07/16/2025 4:03 PM EDT Farrah Jackson DO LAB BLOOD ORDERABLES Final R [facility] Performing Organization Address [facility] de Phone Number [facility] [address] [place] [phone] * T-SPOT??.TB (07/16/2025 1:40 PM EDT) [facility] T Spot TB Negative Negative [facility] Comment:A negative test resu lt does not exclude the possibilityof exposure to or infection with Mycobacteriumtuberculosis (M. tuberculosis). Patients with recentexposure to TB infected individuals exhibiting anegative T-SPOT.TB result should be considered forretesting within 6 weeks or if other relevant clinicalsymptoms indicate. Results from T-SPOT.TB testing mustbe used in conjunction with each individual'sepidemiological history, current medical status,and results of other diagnostic evaluations.The T-SPOT.TB test is qualitative and results arereported as positive, borderline, or negative, giventhat the test controls perform as expected. In linewith the Centers for Disease Control and Prevention's2010 recommendation to report quantitative measurementsalongside the qualitative result, the laboratoryprovides spot counts for informational purposes only.The T-SPOT.TB test should not be interpreted as aquantitative test. TS PANEL A 0 [facility] TS PANEL B 1 [facility] Negative Control Passed [facility] Positive Control Passed [facility] Comment:For additional infor maria del carmen, please refer [email or web address]/[email or web address](This link is being provided for informational/educational purposes only.)THIS TEST WAS PERFORMED AT:[employer] [id number] [place] [address]ZDJNQFSMADELEINE AVILES MD,PHD 07/16/2025 1:40 PM EDT 07/16/2025 4:03 PM EDT us Farrah Jackson DO LAB BLOOD ORDERABLES Final R esult [facility] [address] [place] [phone] * (ABNORMAL) Urinalysis Complete (07/16/2025 1:40 PM EDT) Color Urine Yellow [facility] Appearance Urine Clear [facility] PH 5.5 5.0 - 9.0 [facility] Glucose Urine UA >=1000(A) Negative mg/dL [facility] Urine Blood Negative Negative [facility] Specific [place] - Urine 1.020 1.005 - 1.025 [facility] Urine Protein Negative Neg-Trace mg/dL [facility] Urine Ketones Negative Negative mg/dL [facility] Nitrite Urine Negative Negative [facility] Leukocyte Esterase Urine Negative Negative [facility] RBC Urine 0-2 0 - 2 /HPF [facility] Urine WBC 0-5 0 - 5 /HPF [facility] Urine Squamous Epithelial Cell 0-2 0 - 2 /HPF [facility] Urine Bacteria None Seen None Seen [facility] Hyaline Casts, Urine 0-2 0 - 2 /LPF [facility] Urine (Urine, Random) 07/16/2025 1:40 PM EDT 07/16/2025 4:03 PM EDT Farrah Renetta LAB URINE ORDERABLES Final R esult Performing Organization Address [facility] Co de Phone Number [facility] [address] [place] [address] [phone] * Sed Rate by Modified Westergren (07/16/2025 1:40 PM EDT) Pathologist [facility] Erythrocyte Sedimentation Rate 2 0 - 15 MM/HR [facility] Comment:Patients with polycy themia and many hemoglobin abnormalitiesmay have depressed sed rates whereas patients with anemiamay have elevated sed rates. Blood Venous blood specimen / Unknown 07/16/2025 1:40 PM EDT 07/16/2025 4:03 PM EDT Farrah Renetta LAB BLOOD ORDERABLES Final R esult Performing Organization Address [facility] Co de Phone Number [facility] [address] [place] [address] [phone] * Prealbumin (07/16/2025 1:40 PM EDT) [facility] Prealbumin 25.0 20 - 40 mg/dL [facility] Blood Venous blood specimen / Unknown 07/16/2025 1:40 PM EDT 07/16/2025 4:03 PM EDT Farrah Renetta DO LAB BLOOD ORDERABLES Final R esult Performing Organization Address [facility] Co de Phone Number [facility] [address] [place] [phone] * Hepatitis B Surface Antibody, Qualitative (07/16/2025 1:40 PM EDT) Pathologist [facility] ~Hepatitis B Surface Antibody REACTIVE Nonreactive [facility] Comment:REACTIVE: > 11.99 mI U/mL Blood Venous blood specimen / Unknown 07/16/2025 1:40 PM EDT 07/16/2025 4:03 PM EDT Farrah Renetta DO LAB BLOOD ORDERABLES Final R esult [facility] [address] [place] [phone] * RPR (Monitor) with Reflex to??Titer (07/16/2025 1:40 PM EDT) RPR (Monitor) w/Refl Titer NON-REACTI VE NON-REACT EYAD [facility] Comment:THIS TEST WAS PERFOR MED AT:[facility] [place] [id number] SOTO MD Rapid Plasma Reagin Ab Titer TNP [facility] Blood Venous blood specimen / Unknown 07/16/2025 1:40 PM EDT 07/16/2025 4:03 PM EDT Farrah Jackson DO LAB BLOOD ORDERABLES Final R esult Performing Organization Address [facility] Co de Phone Number [facility] [address] [place] [phone] * Hepatitis C Antibody with Reflex to HCV, RNA, Quantitative, Real-Time PCR (07/16/2025 1:40 PM EDT) Hepatitis C Antibody Nonreactive Nonreactive [facility] Comment:Antibodies to HCV no t detected; does not exclude early acuteHCV infection. Blood Venous blood specimen / Unknown 07/16/2025 1:40 PM EDT 07/16/2025 4:03 PM EDT Farrah Jackson DO LAB BLOOD ORDERABLES Final R esult Performing Organization Address City/[facility]/ZIP Co de Phone Number [facility] [address] [place] [phone] * HIV-1/2 Antigen and Antibodies, Fourth Generation, with Reflexes (07/16/2025 1:40 PM EDT) [facility] HIV AB/AG Nonreactive Nonreactive [facility] Comment:HIV-1 p24 Ag and/or HIV-1/HIV-2 Ab not detected.A test result that is nonreactive does not exclude thepossibility of exposure to or infection with HIV-1 and/orHIV-2. Nonreactive results in this assay for individualswith prior exposure to HIV-1 and/or HIV-2 may be due toantigen and antibody levels that are below the limit ofdetection of this assay.The Jini HIV Ag/Ab Combo assay result andsupplemental assay results should be interpreted inconjunction with the patient's clinical presentation,history and other laboratory results. If the results areinconsistent with clinical evidence, additional testing issuggested to confirm the result. Blood Venous blood specimen / Unknown 07/16/2025 1:40 PM EDT 07/16/2025 4:03 PM EDT Farrah Jackson DO LAB BLOOD ORDERABLES Final R esult Performing Organization Address City/[facility]/ZIP Co de Phone Number [facility] [address] [place] [address] [phone] * Hepatitis B surface antigen, EIA (07/16/2025 1:40 PM EDT) [facility] Hepatitis B Surface Ag Negative Negative [facility] Blood Venous blood specimen / Unknown 07/16/2025 1:40 PM EDT 07/16/2025 4:03 PM EDT Farrah Jackson DO LAB BLOOD ORDERABLES Final R esult Performing Organization Address City/[facility]/ZIP Co de Phone Number [facility] [address] [place] [address] [phone] * (ABNORMAL) Albumin, Random Urine W/Creatinine (07/16/2025 1:40 PM EDT) Creatinine, Urine 48.41 mg/dL [facility] Microalbumin Urine 15.0 mg/L [facility] Microalbum Creatinine Ratio Ur 30.9(H) <30 ug/mg cr [facility] Comment:Albumin/Creatinine R atio Reference Ranges: Normal: < 30 ug/mg creatinine Microalbuminuria: 30 - 300 ug/mg creatinineClinical Albuminuria: > 300 ug/mg creatinine Urine (Urine, Random) 07/16/2025 1:40 PM EDT 07/16/2025 4:03 PM EDT us Farrah Jackson DO LAB URINE ORDERABLES Final R esult [facility] [address] [place] [address] [phone] * Basic Metabolic Panel (07/16/2025 1:40 PM EDT) Sodium 143 135 - 145 mmol/L [facility] Potassium 3.9 3.3 - 5.1 mmol/L [facility] Chloride 108 96 - 108 mmol/L [facility] Carbon Dioxide 27 22 - 29 mmol/L [facility] Anion Gap 12 12 - 20 [facility] Urea Nitrogen (BUN) 15 9 - 16 mg/dL [facility] Creatinine, Serum 0.80 0.5 - 1.4 mg/dL [facility] Estimated Glomerular Filt Rate >60 [facility] Comment:Chronic Kidney Disea se: Estimated GFR < 60 mL/min/[id number] Kidney Disease: Estimated GFR < 15 mL/min/1.73m2 Glucose 83 60 - 115 mg/dL [facility] Calcium 9.6 8.4 - 10.2 mg/dL [facility] Blood Venous blood specimen / Unknown 07/16/2025 1:40 PM EDT 07/16/2025 4:09 PM EDT us Farrah Renetta DO LAB BLOOD ORDERABLES Final R esult [facility] [address] [place] [phone] * Hemoglobin A1c (07/16/2025 1:40 PM EDT) Hemoglobin A1c 5.8 <6.0 % [facility] Comment:Hemoglobin A1C Refer ence Range Adults: 4.8 - 6.0 % Non diabetic: < 6.0 % Goal: < 7.0 %Additional Action Suggested: > 8.0 %Note: Hemoglobin A1c results are invalid for patients with abnormal amounts of HbF. Blood transfusions may impact the HbA1c concentration in the patient sample. Estimated Average Glucose 120 mg/dL [facility] Comment:eAG = Estimated ave rage glucose which is %A1C expressed asaverage glucose, using the formula of the G3O-QcdittpViyrwmh Glucose study (ADAG), Diabetes Care, Vol.31,#8,May. 2007 Blood Venous blood specimen / Unknown 07/16/2025 1:40 PM EDT 07/16/2025 4:03 PM EDT Farrah Renetta DO LAB BLOOD ORDERABLES Final R esult [facility] [address] [place] [address] [phone] * Hepatic Function Panel (07/16/2025 1:40 PM EDT) Bilirubin, Total 0.8 0.0 - 1.0 mg/dL [facility] Bilirubin, Direct 0.4 0.0 - 0.5 mg/dL [facility] Aspartate Amino Transferase 33 5 - 37 U/L [facility] Alanine Aminotransferase 23 0 - 40 U/L [facility] Total Protein 7.2 6.5 - 8.0 g/dL [facility] Albumin Level 4.3 3.5 - 5.0 g/dL [facility] Alkaline Phosphatase 58 39 - 117 U/L [facility] Blood Venous blood specimen / Unknown 07/16/2025 1:40 PM EDT 07/16/2025 4:09 PM EDT Farrah Jackson LAB BLOOD ORDERABLES Final R esult Performing Organization Address City/[facility]/ZIP Co de Phone Number [facility] [address] [place] [phone] * TSH (07/16/2025 1:40 PM EDT) Thyroid Stimulating Hormone 1.75 0.32 - 4.0 uIU/mL [facility] Comment:TSH 3rd Generation ( [employer]) Blood Venous blood specimen / Unknown 07/16/2025 1:40 PM EDT 07/16/2025 4:09 PM EDT Farrah Chavessamantha LAB BLOOD ORDERABLES Final R esult Performing Organization Address City/[facility] Co de Phone Number [facility] [address] [place] [phone] * (ABNORMAL) Lipid Panel, Standard (07/16/2025 1:40 PM EDT) Triglycerides 46 <150 mg/dL [facility] Comment:Desirable Triglyceri de: less than 150 mg/dLBorderline High Triglyceride 150-199 mg/dLHigh Triglyceride: 200-499 mg/dLVery High Triglyceride: greater than or equal to 5OO mg/dL Cholesterol 87 <200 mg/dL [facility] Comment:Desirable Cholestero l: less than 200 mg/dLBorderline High Cholesterol: 200-239 mg/dLHigh Cholesterol: greater than 239 mg/dL LDL Cholesterol Calculated 42 <100 mg/dL [facility] Comment:Desirable LDL: less than 100 mg/dLNear Optimal/Above Optimal LDL: 110- 129 mg/dLBorderline High LDL: 130-159 mg/dLHigh LDL: 160-189 mg/dLVery High LDL: greater than or equal to 190 mg/dL HDL Cholesterol 36(L) >40 mg/dL [facility] Comment:Desirable HDL: great er than 40 mg/dL Note: This HDL assay may give artificially low results in patients with liver disease. Blood Venous blood specimen / Unknown 07/16/2025 1:40 PM EDT 07/16/2025 4:09 PM EDT Farrah Jackson DO LAB BLOOD ORDERABLES Final R esult [facility] [address] [place] [phone] [phone] * Vitamin D, 25-Hydroxy, Total, Immunoassay (07/16/2025 1:40 PM EDT) Pathologist [facility] Vitamin D 25-OH Total 56.9 >30 ng/mL [facility] Comment: Health Based Reference Values*< 20 ng/mL Nvxasturd52-07 ng/mL Insufficient> 30 ng/mL Sufficient*Andrea VAZQUEZ. N [...] ORDERABLES Final R esult Performing Organization Address City/[facility]/ZIP Co de Phone Number [facility] [address] [place] [phone] * T4, Free (07/16/2025 1:40 PM EDT) Pathologist [facility] Free T4 (Free Thyroxine) 0.95 0.71 - 1.85 ng/dL [facility] Blood Venous blood specimen / Unknown 07/16/2025 1:40 PM EDT 07/16/2025 4:09 PM EDT Result [facility] Farrah Renetta VASQUEZ LAB BLOOD ORDERABLES Final R esult Performing Organization Address City/[facility]/ZIP Co de Phone Number [facility] [address] [place] [phone] * POCT Hgb A1c (07/16/2025 12:27 PM EDT) [facility] Hemoglobin A1C 5.5 4.0 - 5.7 % QC Media Lot # [id number] Lot# Expiration Date Blood 07/16/2025 12:2 7 PM EDT Result [facility] Farrah Renetta VASQUEZ POINT OF CARE TEST ENTER/NILESH T ORDERABLES Final Result * POCT Glucose (07/16/2025 12:26 PM EDT) [facility] Glucose Blood, POC 104 60 - 200 mg/dL [employer] Lot # [id number] Lot# Expiration Date ,866, Blood Capillary blood specimen / Unknown 07/16/2025 12:26 PM EDT Result [facility] Farrah Renetta VASQUEZ POINT OF CARE TEST ENTER/NILESH T ORDERABLES Final Result documented in this encounter Visit Diagnoses Diagnosis Unintentional weight loss- Primary Loss of weight Forgetfulness Other general symptoms History of tobacco use Personal history of tobacco use, presenting hazards to health Type 2 diabetes mellitus with microalbuminuria, without long-term current use of insulin ([facility]) Encounter for immunization documented in this encounter Additional Health Concerns Assessment Noted Time PHQ-9 Depression Total Score: 5 07/16/20 25 1:30 PM EDT documented as of this encounter Care Teams Logging Engineer Relationship Specialty Start Date End Date Farrah Jackson DO [address] [place] [address] PCP - General Family Medicine 10/25/18 documented as of this encounter
[2025-07-21 10:22] VITALS: BP 95/52; PULSE 76; RESP 16; TEMP 36.4; O2SAT 95; BMI 21.9
[2025-07-21 10:43] LABS: MANUAL DIFF FLAG NO
[2025-07-21 10:47] LABS: Appearance Urine Clear; Glucose Urine UA >=1000 mg/dL (Negative); PH 7.0 (5.0-9.0); Specific Gravity - Urine >= 1.030 (1.005-1.025); UMIC TRIGGER UACC YES
[2025-07-21 10:56] LABS: Hematocrit 43.6 % (42.0-52.0); Hemoglobin 13.8 g/dl (14.0-18.0); Imm Gran Abs Auto 0.06 X10*3/uL (0.00-0.03); Imm Gran Pct Auto 0.5 % (0.0-0.4); Lymphocytes Absolute Auto 1.5 X10*3/uL (1.2-4.9); Mean Corpuscular HGB Conc 31.7 g/dl (31.0-36.0); Mean Corpuscular Hemoglobin 29.0 pg (27.0-33.0); Mean Corpuscular Volume 91.6 fL (80.0-98.0); NRBC Abs Auto 0.000 X10*3/uL (0.0-0.012); NRBC Pct Auto 0.0 /100WBC (0.0-0.2); Platelet Count 199 X10*3/uL (160-400); Red Blood Count 4.76 X10*6/uL (4.60-5.80); White Blood Count 12.7 X10*3/uL (4.8-10.8)
[2025-07-21 11:07] LABS: Alanine Aminotransferase 16 U/L (0-40); Albumin Level 4.3 g/dL (3.5-5.0); Alkaline Phosphatase 60 U/L (39-117); Anion Gap 12 (12-20); Aspartate Amino Transferase 20 U/L (5-37); Blood Urea Nitrogen 15 mg/dL (9-16); Calcium 9.5 mg/dL (8.4-10.2); Carbon Dioxide 26 mmol/L (22-29); Chloride 108 mmol/L (96-108); Creatinine Clr Calc Pharmacy 84.7; Estimated Glomerular Filt Rate > 60; Lipase 26 U/L (8-78); Potassium 4.6 mmol/L (3.3-5.1); Sodium 141 mmol/L (135-145); Total Protein 7.1 g/dL (6.5-8.0)
--- OUTSIDE RECORDS SUMMARY | 2025-07-21 11:33 | XMS_ITS | Encounter Summary ---
Author Organization [employer] Address [address] [place] [address] Care Team Providers Care Account Development Manager Name Role Phone Meagan Jacksonfer Primary Care Provider + [phone] Encounter Details Date Type Department Care Team ([facility] Contact Info) Description 07/21/2025 Orders Only GENERIC EXTERNAL DATA DEPARTMENT Provider, [...] Description 07/23/2025 11:30 AM EDT Clinical Support [facility] [address] [place], [place] [phone] 09/10/2025 1:00 PM EST Office Visit [facility] OPTOMETRY [address] [place], [place] [phone] TarkaMarie, OD [address] [place], [place] [phone] documented as of this encounter Procedures Procedure Name Priority Date/Time Associated Diagnosis Comments URINALYSIS, COMPLETE, WITH REFLEX TO CULTURE Routine 07/21/2025 10:37 AM EDT CBC WITH AUTO DIFFERENTIAL Routine 07/21/2025 10:37 AM EDT LIPASE Routine 07/21/2025 10:37 AM EDT COMPREHENSIVE METABOLIC PANEL Routine 07/21/2025 10:37 AM EDT documented in this encounter Results * Lipase (07/21/2025 10:37 AM EDT) Lipase 26 8 - 78 U/L [facility] 07/21/2025 10:3 7 AM EDT 07/21/2025 10:41 AM EDT us Generic External Data Provider LAB BLOOD ORDERAB LES Final Result [facility] [address] [place] [phone] * (ABNORMAL) Comprehensive Metabolic Panel (07/21/2025 10:37 AM EDT) Sodium 141 135 - 145 mmol/L [facility] Potassium 4.6 3.3 - 5.1 mmol/L [facility] Chloride 108 96 - 108 mmol/L [facility] Carbon Dioxide 26 22 - 29 mmol/L [facility] Anion Gap 12 12 - 20 [facility] Urea Nitrogen (BUN) 15 9 - 16 mg/dL [facility] Creatinine, Serum 0.77 0.5 - 1.4 mg/dL [facility] Creatinine Clr Calc Pharmacy 84.7 [facility] Comment:eGFR (calculated fro m the MDRD study equation) and eCrCl(calculated from the Cockcroft-Gault equation) are based ondifferent parameters and may not yield comparable results.If eCrCl result is absurd, please check patient'sheight/weight. Estimated Glomerular Filt Rate >60 [facility] Comment:Chronic Kidney Disea se: Estimated GFR < 60 mL/min/1.43y7Hblowu Kidney Disease: Estimated GFR < 15 mL/min/1.73m2 Glucose 158(H) 60 - 115 mg/dL [facility] Calcium 9.5 8.4 - 10.2 mg/dL [facility] Bilirubin, Total 1.4(H) 0.0 - 1.0 mg/dL [facility] Aspartate Amino Transferase 20 5 - 37 U/L [facility] Alanine Aminotransferase 16 0 - 40 U/L [facility] Total Protein 7.1 6.5 - 8.0 g/dL [facility] Albumin Level 4.3 3.5 - 5.0 g/dL [facility] Alkaline Phosphatase 60 39 - 117 U/L [facility] 07/21/2025 10:3 7 AM EDT 07/21/2025 10:41 AM EDT us Generic External Data Provider LAB BLOOD ORDERAB LES Final Result Performing Organization Address [facility]/ZIP Co de Phone Number [facility] [address] [place] [phone] [phone] * (ABNORMAL) Urinalysis, Complete, with Reflex to Culture (07/21/2025 10:37 AM EDT) Color Urine Yellow [facility] Appearance Urine Clear [facility] PH 7.0 5.0 - 9.0 [facility] Glucose Urine UA >=1000(A) Negative mg/dL [facility] Urine Blood Negative Negative [facility] Specific [place] - Urine >=1.030(H) 1.005 - 1.025 [facility] Urine Protein Negative Neg-Trace mg/dL [facility] Urine Ketones Negative Negative mg/dL [facility] Nitrite Urine Negative Negative [facility] Leukocyte Esterase Urine Negative Negative [facility] RBC Urine 0-2 0 - 2 /HPF [facility] Urine WBC 0-5 0 - 5 /HPF [facility] Urine Squamous Epithelial Cell 0-2 0 - 2 /HPF [facility] Urine Bacteria None Seen None Seen [facility] Hyaline Casts, Urine 0-2 0 - 2 /LPF [facility] 07/21/2025 10:3 7 AM EDT 07/21/2025 10:41 AM EDT Narrative [facility] - 07/21/2025 11:05 AM EDT [id number], Clean Catch Generic External Data Provider LAB URINE ORDERAB LES Final Result Performing Organization Address [facility]/ZIP Co de Phone Number [facility] [address] [place] [phone] * (ABNORMAL) CBC auto differential (07/21/2025 10:37 AM EDT) White Blood Count 12.7(H) 4.8 - 10.8 X10*3/uL [facility] Red Blood Count 4.76 4.60 - 5.80 X10*6/uL [facility] Hemoglobin 13.8(L) 14.0 - 18.0 g/dl [facility] Hematocrit 43.6 42.0 - 52.0 % [facility] Mean Corpuscular Volume 91.6 80.0 - 98.0 fL [facility] Mean Corpuscular Hemoglobin 29.0 27.0 - 33.0 pg [facility] Mean Corpuscular HGB Conc 31.7 31.0 - 36.0 g/dl [facility] Red Cell Distribution Width 16.9(H) 11.0 - 16.0 % [facility] Platelet Count 199 160 - 400 X10*3/uL [facility] Mean Platelet Volume 11.2 9.4 - 12.4 fL [facility] Neutrophils Percent Auto 78.3(H) 45 - 73 % [facility] Imm Gran Pct Auto 0.5(H) 0.0 - 0.4 % [facility] Lymphocytes Percent Auto 11.9(L) 20 - 40 % [facility] Monocytes Percent Auto 8.6 2 - 11 % [facility] Eosinophils Percent Auto 0.5 0 - 4 % [facility] Basophils Percent Auto 0.2 0 - 2 % [facility] NRBC Pct Auto 0.0 0.0 - 0.2 /100WBC [facility] Neutrophils Absolute Auto 10.0(H) 2.0 - 8.3 x10*3/uL [facility] Imm Gran Abs Auto 0.06(H) 0.00 - 0.03 X10*3/uL [facility] Lymphocytes Absolute Auto 1.5 1.2 - 4.9 X10*3/uL [facility] Monocytes Absolute Auto 1.1 0.1 - 1.2 X10*3/uL [facility] Eosinophils Absolute Auto 0.1 0.0 - 0.4 X10*3/uL [facility] Basophils Absolute Auto 0.0 0.0 - 0.2 X10*3/uL [facility] NRBC Abs Auto 0.000 0.0 - 0.012 X10*3/uL [facility] 07/21/2025 10:3 7 AM EDT 07/21/2025 10:41 AM EDT us Generic External Data Provider LAB BLOOD ORDERAB LES Final Result [facility] [address] [place] [phone] documented in this encounter Visit Diagnoses Not on filedocumented in this encounter Additional Health Concerns Assessment Noted Time PHQ-9 Depression Total Score: 5 07/16/20 25 1:30 PM EDT documented as of this encounter Care Teams Account Development Manager Relationship Specialty Start Date End Date Farrah Jackson DO [address] [place] [address] PCP - General Family Medicine 10/25/18 documented as of this encounter
--- OUTSIDE RECORDS SUMMARY | 2025-07-21 11:33 | XMS_ITS | Encounter Summary ---
Author Organization [employer] Address [address] [facility] [address] [place] [address] Care Team Providers Care Celery Stripper Name Role Phone Farrah Jackson DO Primary Care Provider + [phone] Reason for Visit * Reason Comments Med Refill Encounter Details Date Type Department Care Team ([facility] Contact Info) Description 07/10/2024 Refill [facility] [address] [place], [place] [phone] Farrah Jackson DO [address] [place], [place] [phone] Social History Tobacco Use Types Packs/Day Years [...] Description 07/23/2025 11:30 AM EDT Clinical Support [facility] [address] [place] [address] 09/10/2025 1:00 PM EST Office Visit [facility] OPTOMETRY [address] [place] [address] Marie Zhao, OD [address] [place] [address] documented as of this encounter Visit Diagnoses Not on filedocumented in this encounter Additional Health Concerns Assessment Noted Time PHQ-9 Depression Total Score: 2 04/21/20 24 8:50 AM EDT documented as of this encounter Care Teams Celery Stripper Relationship Specialty Start Date End Date Farrah Jackson DO [address] [place] [address] PCP - General Family Medicine 10/25/18 documented as of this encounter
--- OUTSIDE RECORDS SUMMARY | 2025-07-21 11:33 | XMS_ITS | Encounter Summary ---
Author Organization [employer] Address [address] [facility] [address] [place] [address] Care Team Providers Care Mortgage Protection Sales Name Role Phone KrissyFarrah knight Primary Care Provider + [phone] Encounter Details Date Type Department Care Team [...] Description 07/23/2025 11:30 AM EDT Clinical Support [facility] [address] [place] [address] 09/10/2025 1:00 PM EST Office Visit [facility] OPTOMETRY [address] [place] [address] Marie Zhao, OD [address] [place] [address] documented as of this encounter Visit Diagnoses Not on filedocumented in this encounter Additional Health Concerns Assessment Noted Time PHQ-9 Depression Total Score: 5 07/16/20 25 1:30 PM EDT documented as of this encounter Care Teams Mortgage Protection Sales Relationship Specialty Start Date End Date Farrah Jackson DO [address] [place] [address] PCP - General Family Medicine 10/25/18 documented as of this encounter
--- OUTSIDE RECORDS SUMMARY | 2025-07-21 11:33 | XMS_ITS | Encounter Summary ---
Author Organization [employer] Address [address] [facility] [address] [place] [address] Care Team Providers Care Brand Strategist Name Role Phone Farrah Jackson DO Primary Care Provider + [phone] Reason for Visit * Reason Onset Date Comments Nurse Triage 12/28/2023 Encounter Details Date Type Department Care Team ([facility] st Contact Info) Description 12/28/2023 Telephone [facility] [address] [place], [place] [phone] Farrah Jackson DO [address] [place], [place] [phone] Nurse Triage Social History Tobacco Use Types [...] for UTI. Pt is advised to come [facility] for provider to see Pt. Pt insurance is not active at this time and Pt is waiting for medicare to start. Advised to stop at front of house manager to speak about insurance before going [...] accepted this outcome Please contact pt at [phone] documented in this encounter Plan of Treatment Upcoming Encounters Date Type Department Care Team ([facility] Contact Info) Description 07/23/2025 11:30 AM EDT Clinical Support [facility] [address] [place] [address] 09/10/2025 1:00 PM EST Office Visit [facility] OPTOMETRY [address] [place] [address] Marie Zhao, OD [address] [place] [address] documented as of this encounter Visit Diagnoses Not on filedocumented in this encounter Care Teams Brand Strategist Relationship Specialty Start Date End Date Farrah Jackson DO [address] [place] [address] PCP - General Family Medicine 10/25/18 documented as of this encounter
--- OUTSIDE RECORDS SUMMARY | 2025-07-21 11:33 | XMS_ITS | Encounter Summary ---
Author Organization [employer] Address [address] [facility] [place] [address] Care Team Providers Care Engineering Test Mechanic Name Role Phone Meagan Jacksonfer Primary Care Provider + [phone] Reason for Visit * Reason Comments Med Refill Encounter Details Date Type Department Care Team ([facility] Contact Info) Description 01/11/2025 Refill [facility] [address] [place], [place] [phone] Alexsandra Luevano MD [address] [place], [place] [phone] Primary hypertension Social History Tobacco Use Types [...] Description 07/23/2025 11:30 AM EDT Clinical Support [facility] [address] [place] [address] 09/10/2025 1:00 PM EST Office Visit [facility] OPTOMETRY [address] [place] [address] Marie Zhao, OD [address] [place] [address] documented as of this encounter Visit Diagnoses Diagnosis Primary hypertension Unspecified essential hypertension documented in this encounter Additional Health Concerns Assessment Noted Time PHQ-9 Depression Total Score: 2 04/21/20 24 8:50 AM EDT documented as of this encounter Care Teams Engineering Test Mechanic Relationship Specialty Start Date End Date Farrah Jackson DO [address] [place] [address] PCP - General Family Medicine 10/25/18 documented as of this encounter
--- OUTSIDE RECORDS SUMMARY | 2025-07-21 11:33 | XMS_ITS | Clinical Summary ---
Author Organization [employer] Address [address] [facility] [address] [place] [address] Care Team Providers Care Supervisor Communications And Signals Name Role Phone Farrah Jackson DO Primary Care Provider + [phone] Allergies Active Allergy Reactions Criticality Noted Date [...] without long-term current use of insulin ([facility]) USE DIRECTED TO TEST BLOOD SUGAR [...] microalbuminuria, without long-term current use of insulin (CMS/[facility]) USE TO TEST BLOOD SUGAR TWICE DAILY [...] Encounters Date Type Department Care Team Description 07/21/2025 Orders Only GENERIC EXTERNAL DATA DEPARTMENT Provider, Generic External Data 07/16/2025 12:00 PM EDT Office Visit [facility] [address] [place] [phone] Farrah Jackson DO Unintentional weight loss (Primary Dx); Forgetfulness; History of tobacco use; Type 2 diabetes mellitus with microalbuminuria, without long-term current use of insulin ([facility]); Encounter for immunization 07/16/2025 Telephone [facility] [address] [place] [phone] Farrah Jackson DO Durable Medical Equipment (DME prescription Ensure(CCA).) 07/16/2025 Travel 07/13/2025 Telephone [facility] [address] [place] [address] Farrah Jackson DO CHART PREP 07/13/2025 Refill [facility] [address] [place] [address] Farrah Jackson DO Type 2 diabetes mellitus with microalbuminuria, without long-term current use of insulin ([facility]) 06/22/2025 Patient Outreach [facility] [address] [place] [address] Farrah Jackson DO Transition Of Care (Tcm) (HDF- patient denied ) 06/20/2025 Orders Only GENERIC EXTERNAL DATA DEPARTMENT Provider, Generic External Data 06/08/2025 11:30 AM EDT Office Visit [facility] [address] [place] [phone] Farrah Jackson DO Type 2 diabetes mellitus with microalbuminuria, without long-term current use of insulin ([facility]) 06/08/2025 Travel 06/07/2025 Telephone [facility] [address] [place] [phone] Farrah Jackson DO chart prep 05/30/2025 Patient Outreach [address] [phone] Farrah Jackson DO Pre-visit Planning (SDOH screening negative and tobacco screening negative) 05/30/2025 Refill [facility] [address] [place] [phone] Farrah Jackson DO Primary hypertension 05/29/2025 Orders Only [facility] External Provider, [facility] 05/25/2025 Telephone [facility] [address] [place] [phone] Farrah Jackson DO Appointment Request 05/25/2025 Travel 05/08/2025 9:20 AM EDT Office Visit [facility] OPTOMET[facility] [address] [place], [place] [phone] Lor Rich, OD Type 2 diabetes mellitus with diabetic microalbuminuria, without long-term current use of insulin ([facility]) (Primary Dx) 05/08/2025 Telephone [facility] [address] [place] [address] Farrah Jackson DO Med Refill 05/08/2025 Travel 04/29/2025 Refill [facility] [address] [place] [address] Farrah Jackson DO from Last 3 Months [...] Description 07/23/2025 11:30 AM EDT Clinical Support [facility] [address] [place], [place] [phone] 09/10/2025 1:00 PM EST Office Visit [facility] OPTOMETRY [address] [place] [address] Marie Zhao, OD [address] [place] [address] Health Maintenance Due Date Last Done Comments [...] history exists Zoster Vaccines Completed 12/16/2021, 10/14/2021 Pneumococcal Vaccine: 50+ Years Completed 08/05/2023, 12/27/2019, 03/04/2010 Hepatitis C Screening Completed 07/16/2025, 023 Influenza Vaccine Completed 07/16/2025, , 07/10/2022, Additional [...] topic Meningococcal Vaccine Aged Out No tobin pirnce eligible based on patient's age to complete this topic RSV under 20 months Aged Out No longe r eligible based on patient's age to complete this topic Rotavirus Vaccines Aged Out No longer eligible based on patient's age to complete this topic Procedures Procedure Name Priority Date/Time Associated Diagnosis Comments LIPASE Routine 07/21/2025 10:37 AM EDT COMPREHENSIVE METABOLIC PANEL Routine 07/21/2025 10:37 AM EDT URINALYSIS, COMPLETE, WITH REFLEX TO CULTURE Routine 07/21/2025 10:37 AM EDT CBC WITH AUTO DIFFERENTIAL Routine 07/21/2025 10:37 AM EDT LEUKOCYTES STOOL QUALITATIVE Routine 07/17/2025 9:40 AM [...] Unintentional weight loss HEPATIC FUNCTION PANEL Routine 5 1:40 PM EDT Type 2 diabetes mellitus [...] Forgetfulness Unintentional weight loss VITAMIN D,25-OH,TOTAL,IA Routine 025 [...] without long-term current use of insulin (CMS/HCC) XR CHEST 2 VIEWS Routine 06/20/2025 10:4 2 PM EDT HIGH SENSITIVITY TROPONIN I Routine 06/20/2025 9:37 PM EDT B TYPE NATRIURETIC PEPTIDE (BNP) Routine 06/20/2025 9:37 PM EDT COMPREHENSIVE METABOLIC PANEL Routine 06/20/2025 6:41 PM EDT HIGH SENSITIVITY TROPONIN I Routine 06/20/2025 6:41 PM EDT COVID-19 ID NOW (IRVING) Routine 025 6:41 PM EDT CBC WITH AUTO DIFFERENTIAL Routine 06/20/2025 6:41 PM EDT INFLUENZA A B2 ID NOW (IRVING) Routine 06/20/2025 6:41 PM EDT POCT GLYCATED HEMOGLOBIN, TOTAL Routine 06/08/2025 11:31 AM EDT Type 2 diabetes mellitus with microalbuminuria, without long-term current use of insulin ([facility]) POCT GLUCOSE Routine 06/08/2025 11:30 AM EDT Type 2 diabetes mellitus with microalbuminuria, without long-term current use of insulin ([facility]) CT ABDOMEN PELVIS W CONTRAST Routine [...] Recently Relevant to Health Maintenance Results * (ABNORMAL) Urinalysis, Complete, with Reflex to Culture (07/21/2025 10:37 AM EDT) Only the most recent of2 resultswithin the time period is included. Color Urine Yellow [facility] Appearance Urine Clear [facility] PH 7.0 5.0 - 9.0 [facility] Glucose Urine UA >=1000(A) Negative mg/dL [facility] Urine Blood Negative Negative [facility] Specific [place] - Urine >=1.030(H) 1.005 - 1.025 [facility] Urine Protein Negative Neg-Trace mg/dL [facility] Urine Ketones Negative Negative mg/dL [facility] Nitrite Urine Negative Negative [facility] Leukocyte Esterase Urine Negative Negative [facility] RBC Urine 0-2 0 - 2 /HPF [facility] Urine WBC 0-5 0 - 5 /HPF [facility] Urine Squamous Epithelial Cell 0-2 0 - 2 /HPF [facility] Urine Bacteria None Seen None Seen [facility] Hyaline Casts, Urine 0-2 0 - 2 /LPF [facility] 07/21/2025 10:3 7 AM EDT 07/21/2025 10:41 AM EDT Narrative [facility] - 07/21/2025 11:05 AM EDT [id number], Clean Catch us Generic External Data Provider LAB URINE ORDERAB LES Final Result [facility] [address] [place] [phone] * (ABNORMAL) CBC auto differential (07/21/2025 10:37 AM EDT) Only the most recent of4 resultswithin the time period is included. White Blood Count 12.7(H) 4.8 - 10.8 X10*3/uL [facility] Red Blood Count 4.76 4.60 - 5.80 X10*6/uL [facility] Hemoglobin 13.8(L) 14.0 - 18.0 g/dl [facility] Hematocrit 43.6 42.0 - 52.0 % [facility] Mean Corpuscular Volume 91.6 80.0 - 98.0 fL [facility] Mean Corpuscular Hemoglobin 29.0 27.0 - 33.0 pg [facility] Mean Corpuscular HGB Conc 31.7 31.0 - 36.0 g/dl [facility] Red Cell Distribution Width 16.9(H) 11.0 - 16.0 % [facility] Platelet Count 199 160 - 400 X10*3/uL [facility] Mean Platelet Volume 11.2 9.4 - 12.4 fL [facility] Neutrophils Percent Auto 78.3(H) 45 - 73 % [facility] Imm Gran Pct Auto 0.5(H) 0.0 - 0.4 % [facility] Lymphocytes Percent Auto 11.9(L) 20 - 40 % [facility] Monocytes Percent Auto 8.6 2 - 11 % [facility] Eosinophils Percent Auto 0.5 0 - 4 % [facility] Basophils Percent Auto 0.2 0 - 2 % [facility] NRBC Pct Auto 0.0 0.0 - 0.2 /100WBC [facility] Neutrophils Absolute Auto 10.0(H) 2.0 - 8.3 x10*3/uL [facility] Imm Gran Abs Auto 0.06(H) 0.00 - 0.03 X10*3/uL [facility] Lymphocytes Absolute Auto 1.5 1.2 - 4.9 X10*3/uL [facility] Monocytes Absolute Auto 1.1 0.1 - 1.2 X10*3/uL [facility] Eosinophils Absolute Auto 0.1 0.0 - 0.4 X10*3/uL [facility] Basophils Absolute Auto 0.0 0.0 - 0.2 X10*3/uL [facility] NRBC Abs Auto 0.000 0.0 - 0.012 X10*3/uL [facility] 07/21/2025 10:3 7 AM EDT 07/21/2025 10:41 AM EDT Generic External Data Provider LAB BLOOD ORDERAB LES Final Result Performing Organization Address [facility]/ZIP Co de Phone Number [facility] [address] [place] [address] [phone] * Lipase (07/21/2025 10:37 AM EDT) Only the most recent of2 resultswithin the time period is included. Lipase 26 8 - 78 U/L [facility] 07/21/2025 10:3 7 AM EDT 07/21/2025 10:41 AM EDT Generic External Data Provider LAB BLOOD ORDERAB LES Final Result Performing Organization Address [facility]/ZIP Ri de Phone Number [facility] [address] [place] [address] [phone] * (ABNORMAL) Comprehensive Metabolic Panel (07/21/2025 10:37 AM EDT) Only the most recent of2 resultswithin the time period is included. Sodium 141 135 - 145 mmol/L [facility] Potassium 4.6 3.3 - 5.1 mmol/L [facility] Chloride 108 96 - 108 mmol/L [facility] Carbon Dioxide 26 22 - 29 mmol/L [facility] Anion Gap 12 12 - 20 [facility] Urea Nitrogen (BUN) 15 9 - 16 mg/dL [facility] Creatinine, Serum 0.77 0.5 - 1.4 mg/dL [facility] Creatinine Clr Calc Pharmacy 84.7 [facility] Comment:eGFR (calculated fro m the MDRD study equation) and eCrCl(calculated from the Cockcroft-Gault equation) are based ondifferent parameters and may not yield comparable results.If eCrCl result is absurd, please check patient'sheight/weight. Estimated Glomerular Filt Rate >60 [facility] Comment:Chronic Kidney Disea se: Estimated GFR < 60 mL/min/1.25e9Ntdpnt Kidney Disease: Estimated GFR < 15 mL/min/1.73m2 Glucose 158(H) 60 - 115 mg/dL [facility] Calcium 9.5 8.4 - 10.2 mg/dL [facility] Bilirubin, Total 1.4(H) 0.0 - 1.0 mg/dL [facility] Aspartate Amino Transferase 20 5 - 37 U/L [facility] Alanine Aminotransferase 16 0 - 40 U/L [facility] Total Protein 7.1 6.5 - 8.0 g/dL [facility] Albumin Level 4.3 3.5 - 5.0 g/dL [facility] Alkaline Phosphatase 60 39 - 117 U/L [facility] 07/21/2025 10:3 7 AM EDT 07/21/2025 10:41 AM EDT us Generic External Data Provider LAB BLOOD ORDERAB LES Final Result [facility] [address] [place], [place] [phone] * Leukocytes Stool Qualitative (07/17/2025 9:40 AM EDT) Leukocytes Stool Qualitative NEGATIVE NEGATIVE [facility] Stool 07/17/2025 9:40 AM EDT 07/17/2025 12:13 PM EDT Farrah Jackson DO LAB BODY FLUIDS AND STOOLS O RDERABLES Final Result [facility] [address] [place] [phone] * Stool - Gastrointestinal panel (07/17/2025 9:40 AM EDT) Campylobacter Not Detected Not Detect. [facility] Plesiomonas shigelloides Not Detected Not Detect. [facility] Salmonella Not Detected Not Detect. [facility] Vibrio Not Detected Not Detect. [facility] Vibrio cholerae Not Detected Not Detect. [facility] YERSINIA ENTEROCOLITICA Not Detected Not Detect. [facility] Enteroaggregative E. coli (EAEC) Not Detected Not Detect. [facility] Enteropathogenic E. coli (EPEC) Not Detected Not Detect. [facility] Enterotoxigenic E. coli (ETEC) lt/st Not Detected Not Detect. [facility] Shiga-like toxin-producing E. coli (STEC) stx1/stx2 Not Detected Not Detect. [facility] E coli O157 Not applicable Not Detect. [facility] Comment:E. coli containing t he O157 antigen are a subset ofShiga-like toxin- producing E. coli (STEC). Shigella/Enteroinvasive E. coli (EIEC) Not Detected Not Detect. [facility] Cryptosporidium Not Detected Not Detect. [facility] Cyclospora cayetanensis Not Detected Not Detect. [facility] Entamoeba histolytica Not Detected Not Detect. [facility] Giardia lamblia Not Detected Not Detect. [facility] Adenovirus F 40/41 Not Detected Not Detect. [facility] Astrovirus Not Detected Not Detect. [facility] Norovirus GI/GII Not Detected Not Detect. [facility] Rotavirus A Not Detected Not Detect. [facility] Sapovirus Not Detected Not Detect. [facility] Comment: All results must be [...] assay is performed by Multiplexed PCR, utilizing [employer] Array. Stool Rectal contents / Unknown 07/17/2025 9:40 AM EDT 07/17/2025 12:13 PM EDT us Farrah Jackson DO LAB MICROBIOLOGY - GENERAL O RDERABLES Final Result [facility] [address] [place] [phone] * Vitamin D, 25-Hydroxy, Total, Immunoassay (07/16/2025 1:40 PM EDT) Vitamin D 25-OH Total 56.9 >30 ng/mL [facility] Comment: Health Based Reference Values*< 20 ng/mL [id number] ng/mL Insufficient> 30 ng/mL Sufficient*Andrea VAZQUEZ. N [...] ORDERABLES Final R esult Performing Organization Address [facility] Co de Phone Number [facility] [address] [place] [phone] * Vitamin B12 (Cobalamin) and Folate Panel, Serum (07/16/2025 1:40 PM EDT) Pathologist [facility] Vitamin B12 365 200 - 900 pg/mL [facility] Comment:NORMAL 200-900 PG/ML INDETERMINATE 160-199 PG/ML DEFICIENT < 160 PG/ML Folate >20.0 > or = 4.0 ng/mL [facility] Comment:Reference Values:> o r = [...] ORDERABLES Final R esult Performing Organization Address [facility] Co de Phone Number [facility] [address] [place] [phone] * T-SPOT??.TB (07/16/2025 1:40 PM EDT) T Spot TB Negative Negative [facility] Comment:A negative test resu lt [...] as aquantitative test. TS PANEL A 0 [facility] TS PANEL B 1 [facility] Negative Control Passed [facility] Positive Control Passed [facility] Comment:For additional infor matsophia, please refer [email or web address]/faq/[email or web address](This link is being provided for informational/educational purposes only.)THIS TEST WAS PERFORMED AT:[employer] [id number] [place] [phone] AVILES MD,PHD 07/16/2025 1:40 PM EDT 07/16/2025 4:03 PM EDT us Farrah Jackson DO LAB BLOOD ORDERABLES Final R esult [facility] [address] [place] [phone] * (ABNORMAL) Albumin, Random Urine W/Creatinine (07/16/2025 1:40 PM EDT) Creatinine, Urine 48.41 mg/dL [facility] Microalbumin Urine 15.0 mg/L H [facility] Microalbum Creatinine Ratio Ur 30.9(H) <30 ug/mg cr [facility] Comment:Albumin/Creatinine R atio Reference Ranges: Normal: < 30 ug/mg creatinine Microalbuminuria: 30 - 300 ug/mg creatinineClinical Albuminuria: > 300 ug/mg creatinine Urine (Urine, Random) 07/16/2025 1:40 PM EDT 07/16/2025 4:03 PM EDT Farrah Renetta LAB URINE ORDERABLES Final R esult Performing Organization Address [facility] Co de Phone Number [facility] [address] [place] [phone] * Hepatitis C Antibody with Reflex to HCV, RNA, Quantitative, Real-Time PCR (07/16/2025 1:40 PM EDT) Hepatitis C Antibody Nonreactive Nonreactive [facility] Comment:Antibodies to HCV no t detected; does not exclude early acuteHCV infection. Blood Venous blood specimen / Unknown 07/16/2025 1:40 PM EDT 07/16/2025 4:03 PM EDT Farrah Renetta LAB BLOOD ORDERABLES Final R esult Performing Organization Address [facility] Co de Phone Number [facility] [address] [place] [phone] * Alpha-Fetoprotein, Tumor Marker (07/16/2025 1:40 PM EDT) Alpha Fetoprotein 1.1 <6.1 ng/mL [facility] Comment:This test was perfor med using the Malorie Coulterchemiluminescent method. Values obtained fromdifferent assay methods cannot be usedinterchangeably. AFP levels, regardless ofvalue, should not be interpreted as absoluteevidence of the presence or absence of disease.THIS TEST WAS PERFORMED AT:[facility] [address] [phone] SOTO MD Blood Venous blood specimen / Unknown 07/16/2025 1:40 PM EDT 07/16/2025 4:09 PM EDT Farrah Jackson DO LAB BLOOD ORDERABLES Final R esult Performing Organization Address [facility]/ZIP Co de Phone Number [facility] [address] [place] [phone] * Hepatitis B surface antigen, EIA (07/16/2025 1:40 PM EDT) Hepatitis B Surface Ag Negative Negative [facility] Blood Venous blood specimen / Unknown 07/16/2025 1:40 PM EDT 07/16/2025 4:03 PM EDT Farrah Jackson DO LAB BLOOD ORDERABLES Final R esult Performing Organization Address [facility] Co de Phone Number [facility] [address] [place] [phone] * RPR (Monitor) with Reflex to??Titer (07/16/2025 1:40 PM EDT) RPR (Monitor) w/Refl Titer NON-REACTI VE NON-REACT EYAD [facility] Comment:THIS TEST WAS PERFOR MED AT:[employer] [address] [phone] SOTO MD Rapid Plasma Reagin Ab Titer TNP [facility] Blood Venous blood specimen / Unknown 07/16/2025 1:40 PM EDT 07/16/2025 4:03 PM EDT Farrah Jackson DO LAB BLOOD ORDERABLES Final R esult Performing Organization Address [facility] Co de Phone Number [facility] [address] [place] [phone] * HIV-1/2 Antigen and Antibodies, Fourth Generation, with Reflexes (07/16/2025 1:40 PM EDT) [facility] HIV AB/AG Nonreactive Nonreactive [facility] Comment:HIV-1 p24 Ag and/or HIV-1/HIV-2 Ab not detected.A test result that is nonreactive does not exclude thepossibility of exposure to or infection with HIV-1 and/orHIV-2. Nonreactive results in this assay for individualswith prior exposure to HIV-1 and/or HIV-2 may be due toantigen and antibody levels that are below the limit ofdetection of this assay.The [employer] HIV Ag/Ab Combo assay result andsupplemental assay results should be interpreted inconjunction with the patient's clinical presentation,history and other laboratory results. If the results areinconsistent with clinical evidence, additional testing issuggested to confirm the result. Blood Venous blood specimen / Unknown 07/16/2025 1:40 PM EDT 07/16/2025 4:03 PM EDT Farrah Jackson DO LAB BLOOD ORDERABLES Final R esult [facility] [address] [place] [phone] * Hepatitis B Surface Antibody, Qualitative (07/16/2025 1:40 PM EDT) [facility] ~Hepatitis B Surface Antibody REACTIVE Nonreactive [facility] Comment:REACTIVE: > 11.99 mI U/mL Blood Venous blood specimen / Unknown 07/16/2025 1:40 PM EDT 07/16/2025 4:03 PM EDT Farrah Jackson DO LAB BLOOD ORDERABLES Final R esult Performing Organization Address City/[facility]/ZIP Co de Phone Number [facility] [address] [place] [phone] * (ABNORMAL) Urinalysis Complete (07/16/2025 1:40 PM EDT) Color Urine Yellow [facility] Appearance Urine Clear [facility] PH 5.5 5.0 - 9.0 [facility] Glucose Urine UA >=1000(A) Negative mg/dL [facility] Urine Blood Negative Negative [facility] Specific [place] - Urine 1.020 1.005 - 1.025 [facility] Urine Protein Negative Neg-Trace mg/dL [facility] Urine Ketones Negative Negative mg/dL [facility] Nitrite Urine Negative Negative [facility] Leukocyte Esterase Urine Negative Negative [facility] RBC Urine 0-2 0 - 2 /HPF [facility] Urine WBC 0-5 0 - 5 /HPF [facility] Urine Squamous Epithelial Cell 0-2 0 - 2 /HPF [facility] Urine Bacteria None Seen None Seen [facility] Hyaline Casts, Urine 0-2 0 - 2 /LPF [facility] Urine (Urine, Random) 07/16/2025 1:40 PM EDT 07/16/2025 4:03 PM EDT Farrah [employer] LAB URINE ORDERABLES Final R esult [facility] [address] [place] [phone] * Sed Rate by Modified Arnoldoergren (07/16/2025 1:40 PM EDT) Erythrocyte Sedimentation Rate 2 0 - 15 MM/HR [facility] Comment:Patients with polycy themia and many hemoglobin abnormalitiesmay have depressed sed rates whereas patients with anemiamay have elevated sed rates. Blood Venous blood specimen / Unknown 07/16/2025 1:40 PM EDT 07/16/2025 4:03 PM EDT Farrahtreva Jackson DO LAB BLOOD ORDERABLES Final R esult Performing Organization Address [facility]/ZIP Co de Phone Number [facility] [address] [place] [phone] * C-reactive Protein (07/16/2025 1:40 PM EDT) C Reactive Protein 0.30 < or = 0.50 mg/dL [facility] Blood Venous blood specimen / Unknown 07/16/2025 1:40 PM EDT 07/16/2025 4:09 PM EDT Farrah Jackson DO LAB BLOOD ORDERABLES Final R esult Performing Organization Address [facility] Co de Phone Number [facility] [address] [place] [phone] * TSH (07/16/2025 1:40 PM EDT) Thyroid Stimulating Hormone 1.75 0.32 - 4.0 uIU/mL [facility] Comment:TSH 3rd Generation ( [facility]) Blood Venous blood specimen / Unknown 07/16/2025 1:40 PM EDT 07/16/2025 4:09 PM EDT Farrah Jackson DO LAB BLOOD ORDERABLES Final R esult Performing Organization Address [facility] Co de Phone Number [facility] [address] [place] [phone] * T4, Free (07/16/2025 1:40 PM EDT) Free T4 (Free Thyroxine) 0.95 0.71 - 1.85 ng/dL [facility] Blood Venous blood specimen / Unknown 07/16/2025 1:40 PM EDT 07/16/2025 4:09 PM EDT Farrah Jackson DO LAB BLOOD ORDERABLES Final R esult [facility] [address] [place] [phone] * (ABNORMAL) PSA,Total (07/16/2025 1:40 PM EDT) Prostate Specific Antigen 5.00(H) <0.05 - 4.0 ng/mL [facility] Comment:PSA methodology: Abb codey Alimorenoty i ChemiluminescentMicroparticle Immunoassay (CMIA) Blood Venous blood specimen / Unknown 07/16/2025 1:40 PM EDT 07/16/2025 4:03 PM EDT Farrah Jackson LAB BLOOD ORDERABLES Final R esult Performing Organization Address City/[facility]/ZIP Co de Phone Number [facility] [address] [place] [phone] * Prealbumin (07/16/2025 1:40 PM EDT) Prealbumin 25.0 20 - 40 mg/dL [facility] Blood Venous blood specimen / Unknown 07/16/2025 1:40 PM EDT 07/16/2025 4:03 PM EDT Farrah Jackson DO LAB BLOOD ORDERABLES Final R esult Performing Organization Address City/[facility]/ZIP Co de Phone Number [facility] [address] [place] [phone] * Hemoglobin A1c (07/16/2025 1:40 PM EDT) Hemoglobin A1c 5.8 <6.0 % [facility] Comment:Hemoglobin A1C Refer ence Range Adults: 4.8 - 6.0 % Non diabetic: < 6.0 % Goal: < 7.0 %Additional Action Suggested: > 8.0 %Note: Hemoglobin A1c results are invalid for patients with abnormal amounts of HbF. Blood transfusions may impact the HbA1c concentration in the patient sample. Estimated Average Glucose 120 mg/dL [facility] Comment:eAG = Estimated ave rage glucose which is %A1C expressed asaverage glucose, using the formula of the C1B-ImcpsubStsqkag Glucose study (ADAG), Diabetes Care, Vol.31,#8,May. 2007 Blood Venous blood specimen / Unknown 07/16/2025 1:40 PM EDT 07/16/2025 4:03 PM EDT Farrah Jackson DO LAB BLOOD ORDERABLES Final R esult Performing Organization Address City/[facility]/ZIP Co de Phone Number [facility] [address] [place] [phone] * Hepatic Function Panel (07/16/2025 1:40 PM EDT) Only the most recent of2 resultswithin the time period is included. Bilirubin, Total 0.8 0.0 - 1.0 mg/dL [facility] Bilirubin, Direct 0.4 0.0 - 0.5 mg/dL [facility] Aspartate Amino Transferase 33 5 - 37 U/L [facility] Alanine Aminotransferase 23 0 - 40 U/L [facility] Total Protein 7.2 6.5 - 8.0 g/dL [facility] Albumin Level 4.3 3.5 - 5.0 g/dL [facility] Alkaline Phosphatase 58 39 - 117 U/L [facility] Blood Venous blood specimen / Unknown 07/16/2025 1:40 PM EDT 07/16/2025 4:09 PM EDT Farrah Jackson DO LAB BLOOD ORDERABLES Final R esult Performing Organization Address City/[facility]/ZIP Co de Phone Number [facility] [address] [place] [phone] * (ABNORMAL) Lipid Panel, Standard (07/16/2025 1:40 PM EDT) Triglycerides 46 <150 mg/dL [facility] Comment:Desirable Triglyceri de: less than 150 mg/dLBorderline High Triglyceride 150-199 mg/dLHigh Triglyceride: 200-499 mg/dLVery High Triglyceride: greater than or equal to 5OO mg/dL Cholesterol 87 <200 mg/dL [facility] Comment:Desirable Cholestero l: less than 200 mg/dLBorderline High Cholesterol: 200-239 mg/dLHigh Cholesterol: greater than 239 mg/dL LDL Cholesterol Calculated 42 <100 mg/dL [facility] Comment:Desirable LDL: less than 100 mg/dLNear Optimal/Above Optimal LDL: 110- 129 mg/dLBorderline High LDL: 130-159 mg/dLHigh LDL: 160-189 mg/dLVery High LDL: greater than or equal to 190 mg/dL HDL Cholesterol 36(L) >40 mg/dL [facility] Comment:Desirable HDL: great er than 40 mg/dL Note: This HDL assay may give artificially low results in patients with liver disease. Blood Venous blood specimen / Unknown 07/16/2025 1:40 PM EDT 07/16/2025 4:09 PM EDT us Farrah Jackson DO LAB BLOOD ORDERABLES Final R esult [facility] [address] [place] [phone] * Basic Metabolic Panel (07/16/2025 1:40 PM EDT) Only the most recent of2 resultswithin the time period is included. Sodium 143 135 - 145 mmol/L [facility] Potassium 3.9 3.3 - 5.1 mmol/L [facility] Chloride 108 96 - 108 mmol/L [facility] Carbon Dioxide 27 22 - 29 mmol/L [facility] Anion Gap 12 12 - 20 [facility] Urea Nitrogen (BUN) 15 9 - 16 mg/dL [facility] Creatinine, Serum 0.80 0.5 - 1.4 mg/dL [facility] Estimated Glomerular Filt Rate >60 [facility] Comment:Chronic Kidney Disea se: Estimated GFR < 60 mL/min/1.77u5Yswoxl Kidney Disease: Estimated GFR < 15 mL/min/1.73m2 Glucose 83 60 - 115 mg/dL [facility] Calcium 9.6 8.4 - 10.2 mg/dL [facility] Blood Venous blood specimen / Unknown 07/16/2025 1:40 PM EDT 07/16/2025 4:09 PM EDT Farrah Renetta DO LAB BLOOD ORDERABLES Final R esult [facility] [address] [place] [phone] * POCT Hgb A1c (07/16/2025 12:27 PM EDT) Only the most recent of2 resultswithin the time period is included. Hemoglobin A1C 5.5 4.0 - 5.7 % QC [employer] Lot # [id number] Lot# Expiration Date Blood 07/16/2025 12:2 7 PM EDT Farrah Jursamantha DO POINT OF CARE TEST ENTER/NILESH T ORDERABLES Final Result * POCT Glucose (07/16/2025 12:26 PM EDT) Only the most recent of2 resultswithin the time period is included. Glucose Blood, POC 104 60 - 200 mg/dL [employer] Lot # [id number] Lot# Expiration Date Blood Capillary blood specimen / Unknown 07/16/2025 12:26 PM EDT Farrahtreva Jackson [employer] POINT OF CARE TEST ENTER/NILESH T ORDERABLES Final Result * XR Chest 2 Views (06/20/2025 10:42 PM EDT) Only the most recent of2 resultswithin the time period is included. Anatomical Region Laterality Modality Chest Radiographic Dasia ging 06/20/2025 10:4 2 PM EDT Narrative 06/20/2025 10:[address] PM EDT [address] [address] XRay Report Signed Patient: Sonny Curiel MR#: [id number] : 1960 Acct:[id number] Age/Sex: 64 / M ADM Date: 06/20/25 Loc: HO.ED Attending Dr: Ordering Physician: Tamiko Luna MD Date of Service: 06/20/25 Procedure(s): XR chest 2V Accession Number(s): [id number] cc: Tamiko Luna MD; Farrah Jackson DO CLINICAL HISTORY: sob --- Additional Notes or Special Instructions: with doctor-09:21pm Chest X-ray, 2 Views COMPARISON: CR/SR - XR CHEST 2 VIEWS - 05/29/25 16:16 EDT CR - XR CHEST 2V - 03/17/25 11:07 EDT CR/IA/SR - XR CHEST 2V - 12/19/22 11:51 [...] in OV> 06/20/252242 DD/ 41 TD/TT: 06/20/252241 Rubber Off: Procedure Note Donotuseinterpreter, Image - 06/20/[address] [address] XRay Report Signed Patient: Taya CurielR#: [id number] : 9Acct:[id number] Age/Sex: 64 / MADM Date: 06/20/25 Loc: HO.ED Attending Dr: Ordering Physician: Tamiko Luna MD Date of Service: 06/20/25 Procedure(s): XR chest 2V Accession Number(s): [id number] cc: Tamiko Luna MD; Farrah Jackson DO CLINICAL HISTORY: sob --- Additional Notes or Special Instructions: withdoctor-09:21pm Chest X-ray, 2 Views COMPARISON: CR/SR - XR CHEST 2 VIEWS - 05/29/25 16:16 EDT CR - XR CHEST 2V - 03/17/25 11:07 EDT CR/IA/SR - XR CHEST 2V - 12/19/22 11:51 [...] in OV> 06/20/252242 DD/ 41 TD/TT: 06/20/252241 Rubber Off: [facility] External Provider IMG XR PROCEDURES Edited Result - Final * High Sensitivity Troponin I (06/20/2025 9:37 PM EDT) Only the most recent of3 resultswithin the time period is included. TROPONIN I HIGH SENSITIVITY 11.7 <3.5 - 35.0 ng/L [facility] Comment:The [place] high sens itivity Troponin-I results should beused in conjunction with other diagnostic information suchas ECG, clinical observations and information, and patientsymptoms to aid in the diagnosis of SC. 06/20/2025 9:37 PM EDT 06/20/2025 9:40 PM EDT Generic External Data Provider LAB BLOOD ORDERAB LES Final Result Performing Organization Address [facility]/ZIP Co de Phone Number [facility] [address] [place] [phone] * (ABNORMAL) B Type Natriuretic Peptide (BNP) (06/20/2025 9:37 PM EDT) Only the most recent of2 resultswithin the time period is included. B Type Natriuretic Peptide 3,006(H) <100 pg/mL [facility] 06/20/2025 9:37 PM EDT 06/20/2025 9:40 PM EDT Generic External Data Provider LAB BLOOD ORDERAB LES Final Result Performing Organization Address [facility] Co de Phone Number [facility] [address] [place] [phone] * Influenza A B2 ID NOW (Irvign) (06/20/2025 6:41 PM EDT) IDNOW SERIAL# [id number] [facility] Influenza A Negative Negative [facility] Influenza B2 Negative Negative [facility] Influenza A B2 Note See Note [facility] Comment:The [place] ID NOW In [...] GENERAL ORDERABLES Final Result Performing Organization Address City/[facility]/ZIP Co de Phone Number [facility] [address] [place] [phone] * COVID-19 ID NOW (IRVING) (06/20/2025 6:41 PM EDT) IDNOW SERIAL# [id number] [facility] COVID-19 TEST Negative Negative [facility] COVID-19 NOTE See Note [facility] Comment: Results are for the identification of SARS-CoV2 RNA. TheSARS-CoV2 RNA is generally detectable in respiratory samplesduring the acute phase of infection. Positive results areindicative of the presence of SARS-CoV-2 RNA; clinicalcorrelation with patient history and other diagnosticinformation is necessary to determine patient infectionstatus. Positive results do not rule out bacterial infectionor co- infection with other viruses.Testing facilities within the [facility] and [facility] are required to report all positive [...] GNOSTICS ORDERABLES Final Result Performing Organization Address City/[facility]/ZIP Co de Phone Number [facility] [address] [place] [phone] * CT Abdomen Pelvis w/ Contrast (05/30/2025 2:12 AM EDT) Anatomical Region Laterality Modality Body, Pelvis, Abdomen Computed T omography 05/30/2025 2:12 AM EDT Narrative 05/30/2025 2:14 AM EDT [place] [address] CT Scan Report Signed Patient: Sonny Curiel MR#: [id number] : 1960 Acct:[id number] Age/Sex: 64 / M ADM Date: 05/29/25 Loc: HO.ED Attending Dr: Ordering Physician: Deepa Noe DO Date of Service: 05/30/25 Procedure(s): CT abdomen pelvis w IV con Accession Number(s): [id number] cc: Deepa Noe DO; Farrah Jackson DO Report Number: [id number]: Total DLP = 467.00 mGy-cm CLINICAL HISTORY: RLQ abd pain eval for appy --- Additional Notes or Special Instructions: oral contrast started at 2220. jat CT abdomen and pelvis with contrast Comparison: CT - CT ABDOMEN PELVIS W IV CON - 05/30/25 00:[address]/IA/SR - CT ABDOMEN PELVIS WITH IV CONTRAST [...] in OV> 05/30/25212 DD/ 1 TD/TT: 05/30/25211 Rubber Off: Procedure Note Janeth, Image - 05/30/[address] [place] [address] [address] Scan Report Signed Patient: Emily Curiel#: [id number] : 9Acct:[id number] Age/Sex: 64 / MADM Date: 05/29/25 Loc: HO.ED Attending Dr: Ordering Physician: Deepa Noe DO Date of Service: 05/30/25 Procedure(s): CT abdomen pelvis w IV con Accession Number(s): [id number] cc: Deepa Noe DO; Farrah Jackson DO Report Number: [id number]: Total DLP = 467.00 mGy-cm CLINICAL HISTORY: RLQ abd pain eval for appy --- Additional Notes orSpecial Instructions: oral contrast started at 2220. jat CT abdomen and pelvis with contrast Comparison: CT - CT ABDOMEN PELVIS W IV CON - 05/30/25 00:[address]/IA/SR - CT ABDOMEN PELVIS WITH IV CONTRAST [...] in OV> 05/30/25212 DD/ 1 TD/TT: 05/30/25211 Rubber Off: [facility] External Provider IMG CT PROCEDURES Final Result * SARS-CoV-2 RNA, Influenza A/B, and RSV RNA, Ql NAAT (05/29/2025 4:29 PM EDT) Influenza A PCR NEGATIVE Negative [facility] Influenza B PCR NEGATIVE Negative [facility] Resp Syncy Virus RNA Qual PCR NEGATIVE Negative [facility] SARS COV2 PCR NEGATIVE Negative [facility] Comment:All test results mus t [...] use by authorized laboratories.Testing performed on the [place] GeneXpert utilizingreal-time RT-PCR.All SARS CoV2 and positive influenza A/B results arereported to [facility]. 05/29/2025 4:29 PM EDT 05/29/2025 4:35 PM EDT Generic External Data Provider LAB MICROBIOLOGY - GENERAL ORDERABLES Final Result [facility] [address] [place] [phone] * Magnesium (05/29/2025 4:29 PM EDT) Magnesium 1.7 1.6 - 2.6 mg/dL [facility] 05/29/2025 4:29 PM EDT 05/29/2025 4:35 PM EDT us Generic External Data Provider LAB BLOOD ORDERAB LES Final Result [facility] [address] [place] [phone] [phone] * Cologuard?? colon cancer screening (08/26/2023 12:36 PM EDT) Cologuard Result Negative Negative 09/02/20 1:54 AM [email or web address] (CLIA #:[id number]) Comment: NEGATIVE TEST RESULT. A negative Cologuard [...] Toussaint et al, N Engl J Med 2014;370(14):3946-2396) The normal value (reference range) for this assay is negative. COLOGUARD RE-SCREENING RECOMMENDATION: Periodic colorectal cancer screening is an important part of preventive healthcare for asymptomatic individuals at average risk for colorectal cancer. Following a negative Cologuard result, the [place] Cancer Society and U.S. Multi-Society Task Force screening guidelines recommend a Cologuard re-screening interval of 3 years. References: [employer] Guideline for Colorectal Cancer Screening: https://www.cancer.org/cancer/rrifm-vahidj-zlmsns/eecnrclsl-gveodrqlw-ajybssd/ac s-rec ommendations.html.; Matty YOUNG, Krys HALL, Shelton MCDONNELL, Colorectal Cancer Screening: Recommendations for Physicians and Patients from the U.S. Multi-Society Task Force on Colorectal Cancer Screening , Am J Gastroenterology 2017; 112:3596-5283. TEST DESCRIPTION: Composite algorithmic analysis of stool [...] (Liang Champion al, N Engl J Med 2014;370(14):0769-7250.) Cologuard may produce a false negative or false positive result (no colorectal cancer or precancerous polyp present at colonoscopy follow up). A negative Cologuard test result does not guarantee the absence of CRC or advanced adenoma (pre-cancer). The current Cologuard screening interval is every 3 years. ([place] Society and U.S. Multi-Society Task Force). Cologuard performance data in a 10,000 patient pivotal study using colonoscopy as the reference method can be accessed at the following location: www.Xishiwang.com/results. Additional description of the Cologuard test process, warnings and precautions can be found at www.PanAtlant[employer].com. Stool specimen (specimen) 08/26/2023 12:36 PM EDT 08/27/2023 6:19 PM EDT us Farrah Jackson DO LAB MOLECULAR DIAGNOSTICS OR DERABLES Final Result [employer] (CLIA #:[id number]) [place] [address], from Last 3 Months or Most Recently Relevant to Health Maintenance Insurance [facility] STANDARD FORMERLY [facility]F-WAY OPTIONS (HMO D-SNP) DENTAL [facility] Care Teams Supervisor Communications And Signals Relationship Specialty Start Date End Date Farrah Jackson DO [address] [place] [phone] PCP - General Family Medicine 10/25/18
--- OUTSIDE RECORDS SUMMARY | 2025-07-21 11:33 | XMS_ITS | Encounter Summary ---
Author Organization [facility] Address [address] [place] [address] Care Team Providers Care Professional Bass Fisherman Name Role Phone Unavailable Primary Care Provider Unavailabl e Encounter Details Date Type Department Care Team (Late st Contact Info) Description 09/11/2024 Lab Requisition [facility] - Main Lab [address] [place] [address] Krishna Jose MD [address] [facility] [address] [place] [phone] Elevated prostate specific antigen (PSA) Social History [...] LAB Gross Description A. Urine, Voided, : [id number] Recd 1 TP CYTO 09/20/2024 4:27 PM EST [facility] Disclaimer Unless otherwise specified, all tissue is 10% NB formalin fixed and paraffin embedded. 09/20/2024 4:27 PM EST [facility] Tissue Urine specimen from urethra / Unknown 09/06/2024 09/11/2024 1:13 PM EST us Krishna Jose MD LAB PATHOLOGY ORDERABLES Final Result [facility] [address] [place] [address], documented in this encounter Visit Diagnoses Diagnosis Elevated prostate specific antigen (PSA) documented in this encounter
--- OUTSIDE RECORDS SUMMARY | 2025-07-21 11:33 | XMS_ITS | Clinical Summary ---
Author Organization [facility] Address [address] [address] Phone Care Team Providers Care Office Machine Service Supervisor Name Role Phone KrissyFarrah knight Primary [...] on file Insurance GENERIC COMMERCIAL [place] NGOZI [id number] GENERIC COMMERCIAL [place] NGOZI [id number] GENERIC COMMERCIAL MD NGOZI [id number] GENERIC COMMERCIAL MD NGOZI [id number] GENERIC COMMERCIAL MD NGOZI [id number] GENERIC COMMERCIAL MD NGOZI [id number] GENERIC COMMERCIAL MD NGOZI [id number] GENERIC COMMERCIAL GENERIC COMMERCIAL Care Teams Office Machine Service Supervisor Relationship Specialty Start Date End Date Farrah Jackson DO [address] [place] [address] PCP - General Family Medicine 01/06/19 Additional Source Comments The information contained in this document represents components of the legal health record. It is not the complete legal health record.[facility]
--- OUTSIDE RECORDS SUMMARY | 2025-07-21 11:33 | XMS_ITS | Encounter Summary ---
Author Organization [employer] Address [address] [place] [address] Care Team Providers Care Straw Hat Machine Operator Name Role Phone Farrah Jackson DO Primary Care Provider + [phone] Encounter Details Date Type Department Care Team (Late Contact Info) Description 01/15/2023 Orders Only [facility] MED & PEDS [address] [place], [place] [phone] Farrah Baird LPN Social History Tobacco Use [...] 07/23/2025 11:30 AM EDT Clinical Support [facility] MEDICINE [address] [place], [place] [phone] 09/10/2025 1:00 PM EST Office Visit [facility] OPTOMETRY [address] [place], [place] [phone] Marie Zhao, OD [address] [place] [address] documented as of this encounter Visit Diagnoses Not on filedocumented in this encounter Care Teams Straw Hat Machine Operator Relationship Specialty Start Date End Date Farrah Jackson DO [address] [place] [address] PCP - General Family Medicine 10/25/18 documented as of this encounter
--- OUTSIDE RECORDS SUMMARY | 2025-07-21 11:33 | XMS_ITS | Encounter Summary ---
Author Organization [employer] Address [address] [place] [address] Care Team Providers Care Mill Dresser Name Role Phone Farrah Jackson DO Primary Care Provider + [phone] Reason for Visit * Reason Onset Date Comments pain medication to pharmacy 05/22/2024 Encounter Details Date Type Department Care Team ([facility] st Contact Info) Description 05/22/2024 Telephone [facility] ADULT DENTAL [address] [place] [address] Farhad Knott, DMD [address] [place] [address] pain medication to pharmacy Social History Tobacco [...] 07/23/2025 11:30 AM EDT Clinical Support [facility] MED[facility] [address] [place] [address] 09/10/2025 1:00 PM EST Office Visit [facility] OPTOMETRY [address] [place] [address] Marie Zhao, OD [address] [place] [address] documented as of this encounter Visit Diagnoses Not on filedocumented in this encounter Additional Health Concerns Assessment Noted Time PHQ-9 Depression Total Score: 2 04/21/20 24 8:50 AM EDT documented as of this encounter Care Teams Mill Dresser Relationship Specialty Start Date End Date Farrah Jackson DO [address] [place] [phone] PCP - General Family Medicine 10/25/18 documented as of this encounter
--- OUTSIDE RECORDS SUMMARY | 2025-07-21 11:33 | XMS_ITS | Encounter Summary ---
Author Organization [employer] Address [address] [place] [address] Care Team Providers Care Nurse Assistant Name Role Phone Farrah Jackson DO Primary Care Provider + [phone] Reason for Visit * Reason Comments Med Refill Encounter Details Date Type Department Care Team ([facility] Contact Info) Description 11/14/[address] [facility] MEDICINE [address] [place], [place] [phone] Farrah Jackson DO [address] [place], [place] [phone] Social History Tobacco Use Types Packs/Day Years [...] Description 07/23/2025 11:30 AM EDT Clinical Support [facility] MEDICINE [address] [place] [address] 09/10/2025 1:00 PM EST Office Visit [facility] OPTOMETRY [address] [place] [address] Marie Zhao, OD [address] [place] [address] documented as of this encounter Visit Diagnoses Not on filedocumented in this encounter Care Teams Nurse Assistant Relationship Specialty Start Date End Date Farrah Jackson DO [address] [place] [address] PCP - General Family Medicine 10/25/18 documented as of this encounter
--- OUTSIDE RECORDS SUMMARY | 2025-07-21 11:33 | XMS_ITS | Encounter Summary ---
Author Organization [employer] Address [address] [place] [address] Care Team Providers Care Blood Bank Credit Clerk Name Role Phone Meagan Jacksonfer Primary Care Provider + [phone] Reason for Visit * Reason Comments Med Refill Encounter Details Date Type Department Care Team ([facility] [address] Contact Info) Description 11/19/2023 Refill [facility] MEDICINE [address] [place], [place] [phone] Juana Wilson MD [address] [place], [place] [phone] Social History Tobacco Use Types Packs/Day Years [...] 11:30 AM EDT Clinical Support [facility] MEDICINE [address] [place] [address] 09/10/2025 1:00 PM EST Office Visit [facility] OPTOMETRY [address] [place] [address] Marie Zhao, OD [address] [place] [address] documented as of this encounter Visit Diagnoses Not on filedocumented in this encounter Care Teams Blood Bank Credit Clerk Relationship Specialty Start Date End Date Farrah Jackson DO [address] [place] [address] PCP - General Family Medicine 10/25/18 documented as of this encounter
--- OUTSIDE RECORDS SUMMARY | 2025-07-21 11:33 | XMS_ITS | Clinical Summary ---
Author Organization [address] [facility] Address [address] [place] [phone] Phone Care Team Providers Care Animal Caretaker Supervisor Name Role Phone Unavailable Primary Care Provider [...]
--- OUTSIDE RECORDS SUMMARY | 2025-07-21 11:33 | XMS_ITS | Encounter Summary ---
Author Organization [employer] Address [address] [place] [address] Care Team Providers Care Highballer Name Role Phone Farrah Jackson DO Primary Care Provider + [phone] Reason for Visit * Reason Onset Date Comments Durable Medical Equipment 07/16/2025 DME pr escription Ensure([facility]). Encounter Details Date Type Department Care Team ([facility] Contact Info) Description 07/16/2025 Telephone [facility] MED[facility]INE [address] [place] [address] Farrah Jackson DO [address] [place], [place] [phone] Durable Medical Equipment (DME prescription [employer]ure([facility]).) Social [...] Questionnaire-2 Score 0 07/16/2025 1:30 PM EDT Wedny Matson [place] * Little interest or pleasure [...] Description 07/23/2025 11:30 AM EDT Clinical Support [facility] MED[facility]INE [address] [place] [address] 09/10/2025 1:00 PM EST Office Visit [facility] OPTOMETRY [address] [place] [address] Marie Zhao, OD [address] [place] [address] documented as of this encounter Visit Diagnoses Not on filedocumented in this encounter Additional Health Concerns Assessment Noted Time PHQ-9 Depression Total Score: 5 07/16/20 25 1:30 PM EDT documented as of this encounter Care Teams Highballer Relationship Specialty Start Date End Date Farrah Jackson DO [address] [place] [address] PCP - General Family Medicine 10/25/18 documented as of this encounter
--- NOTE | 2025-07-21 12:06 | ED.ABDPAIN ---
HPI - Abdominal Pain General Chief Complaint: Abdominal Pain Stated Complaint: abd pain Time Seen by Provider: 07/21/25 11:44 Source: patient and family Mode of arrival: ambulatory Limitations: no limitations History of Present Illness ED Provider: Verito Christianson APRN HPI narrative: 64-year-old male with a history of nonischemic cardiomyopathy with an EF of 30%, COPD, ICD presents to the ER with complaints of lower abdominal pain for the last few days which is intermittent and noted when he does any bending, lifting, walking, coughing, sneezing. Patient has been told previously that he has had inguinal hernia. He denies any associated nausea, vomiting, diarrhea, constipation, fevers or chills with this pain. No testicular pain, urinary symptoms, penile disharge. Related Data Home Medications ?Medication ?Instructions ?Recorded ?Confirmed atorvastatin 80 mg tablet (Lipitor) 80 mg PO BEDTIME 08/20/20 06/21/25 metformin 500 mg tablet 1,000 mg PO BID 08/20/20 06/21/25 carvedilol 12.5 mg tablet 18.75 mg PO BID 05/20/23 06/21/25 sertraline 25 mg tablet 25 mg PO DAILY 05/20/23 06/21/25 aspirin 81 mg tablet,delayed 81 mg PO DAILY 06/21/25 06/21/25 release clotrimazole 1 % topical cream 1 appl topical BID 06/21/25 06/21/25 cyclobenzaprine 10 mg tablet 10 mg PO Q8H PRN Muscle Spasm 06/21/25 06/21/25 dapagliflozin propanediol 10 mg 10 mg PO DAILY 06/21/25 06/21/25 tablet (Farxiga) gabapentin 300 mg capsule 300 mg PO BEDTIME 06/21/25 06/21/25 sacubitril 49 mg-valsartan 51 mg 1 tab PO BID 06/21/25 06/21/25 tablet (Entresto) tamsulosin 0.4 mg capsule 0.4 mg PO BEDTIME 06/21/25 06/21/25 Previous Rx's ?Medication ?Instructions ?Recorded spironolactone 25 mg tablet 25 mg PO DAILY #90 tabs 09/19/24 albuterol sulfate 90 mcg/actuation 2 puff inhalation QID PRN 01/03/25 aerosol inhaler shortness of breath or wheezing 1 month #8.5 grams furosemide 20 mg tablet 20 mg PO DAILY 30 days #30 tabs 03/27/25 dicyclomine 20 mg tablet 20 mg PO TID #10 tabs 05/30/25 furosemide 20 mg tablet (Lasix) 20 mg PO DAILY PRN weight gain 30 07/03/25 days #14 tabs Allergies Allergy/AdvReac Type Severity Reaction Status Date / Time oxycodone AdvReac Intermediate vomiting, Verified 07/21/25 10:24 delusions Review of Systems Review of Systems Yes all other systems are reviewed and are negative Constitutional: Reports no additional constitutional complaints, Denies body ache(s), Denies chills, Denies fever(s), Denies headache(s) and Denies weakness Eyes: Reports no additional eye complaints and Denies change in vision Reports system reviewed and no additional complaints, except as documented, Denies dizziness, Denies headache(s), Denies nasal congestion, Denies nasal discharge and Denies neck pain Cardiovascular: Reports no additional cardiovascular complaints, Denies chest pain, Denies leg edema and Denies dyspnea Respiratory: Reports no additional respiratory complaints, Denies cough and Denies dyspnea Gastrointestinal: Reports no additional gastrointestinal complaints, Reports abdominal pain, Denies diarrhea, Denies nausea and Denies vomiting Genitourinary: Denies urinary incontinence Musculoskeletal: Reports no additional musculoskeletal complaints, Denies back pain, Denies arthralgias, Denies joint swelling, Denies neck pain, Denies numbness and Denies tingling Skin/Breast: Reports system reviewed and no additional complaints, except as docu and Denies rash Reports system reviewed and no additional complaints, except as documented, Denies Abnormal speech present, Denies dizziness, Denies headache(s), Denies numbness, Denies tingling and Denies weakness [facility] Past Medical History Attestation statement: The following information was validated with the patient. Source: old records reviewed and nursing notes reviewed Medical History Pacemaker Gout [id number] deficiency Encounter for discussion regarding implantable cardioverter-defibrillator Cardiomyopathy COPD (chronic obstructive pulmonary disease) Essential hypertension PVC (premature ventricular contraction) MARVA (obstructive sleep apnea) Carcinoid tumor High cholesterol Prostate enlargement Diabetes Surgical History History of surgical procedure (~2022) History of prostate surgery Hx of colonoscopy History of bronchoscopy History of lobectomy of lung Family History Family History Son No problems noted. Father No problems noted. 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 Physical Exam ED Vital Signs: Vital Signs - 24 hr 07/21/25 10:22 07/21/25 12:07 07/21/25 12:10 Temperature 97.5 F 100 F Pulse Rate 76 Respiratory Rate 16 15 Blood Pressure 95/52 L 98/67 Pulse Oximetry 95 100 Oxygen Delivery Method Room Air Room Air BMI result Body Mass Index 21.9 Const General: cooperative, healthy appearing, comfortable and no acute distress Orientation/consciousness: patient oriented x3 Limitations: no limitations HENMT Head: Yes normal to inspection Ears: hearing grossly normal bilaterally General nose exam: Normal external nose present Face and sinus: Yes normal facial exam Mouth: Normal oral and palatal mucosa present Throat: Yes posterior oropharynx normal Eyes General: appearance normal, both eyes and all related structures Pupils: Equal, round and reactive pupils present Neck Neck: Yes normal visual inspection Chest Chest palpation & inspection: normal inspection of the chest Resp Effort & Inspection: normal respiratory effort Auscultation: clear to auscultation bilaterally Cardio Rate: regular rate Rhythm: regular rhythm Peripheral pulses: Peripheral pulses 2+ throughout GI Other: I am unable to elicit any abdominal pain on exam. ?inguinal hernia left side Inspection: Yes normal to inspection Palpation (GI): Soft to palpation and nontender Auscultation: normal bowel sounds Back/Spine/Pelvis Thoracic/Lumbar Spine: thoracic and lumbar spine normal to inspection Skin General skin exam: no rashes or lesions noted Neuro General: patient oriented x3, no focal motor deficits and normal sensation to monofilament Cranial nerves: Yes Equal, round and reactive pupils present Cognition (Neuro): normal cognition Speech: No Abnormal speech present Gait exam (Neuro): Normal gait present Motor exam (neuro): 5/5 motor strength present throughout Extrem General: Yes normal to inspection Medical Decision Making Medical Decision Making [facility] Narrative: 64-year-old male with a history of nonischemic cardiomyopathy with an EF of 30%, COPD, ICD presents to the ER with complaints of lower abdominal pain for the last few days which is intermittent and noted when he does any bending, lifting, walking, coughing, sneezing. Patient has been told previously that he has had inguinal hernia. He denies any associated nausea, vomiting, diarrhea, constipation, fevers or chills with this pain. I am unable to elicit any abdominal pain on exam. ?inguinal hernia left side Doubt acute abdomen based on abdominal exam. Recommend patient follow up outpatient. Reviewed worrisome signs and symptoms when to return to the emergency room. He is comfortable with the plan for discharge. Patient's blood pressure is 98/67. He is asymptomatic. He reports he in the last year as lost over 180 lb. Recently his primary care doctor started adjusting his medications including removing his metformin as he has had a normal A1c. No adjustments to his blood pressure medication. He did take his blood pressure in the medicine this morning and has not eaten. Recommended he monitor his blood pressure at home. Go home and eat food. Return for return precaution. And follow up with his primary care doctor on Wednesday for blood pressure check and discussion about his medication Differential Diagnosis Differential Diagnoses: The differential diagnosis associated with the presentation includes Inguinal hernia Doubt incarcerated hernia, diverticulitis, acute appendicitis Admission/Observation Consideration of admission/observation: Escalation of care including admission/observation considered Lab Data [facility] Lab Attestation statement: I reviewed the patient's lab results. 07/21/25 10:37 07/21/25 10:37 Labs: Lab Results 07/21/25 Range/Units 10:37 WBC 12.7 H (4.8-10.8) X10*3/uL RBC 4.76 (4.60-5.80) X10*6/uL Hgb 13.8 L (14.0-18.0) g/dl Hct 43.6 (42.0-52.0) % MCV 91.6 (80.0-98.0) fL MCH 29.0 (27.0-33.0) pg MCHC 31.7 (31.0-36.0) g/dl RDW 16.9 H (11.0-16.0) % Plt Count 199 (160-400) X10*3/uL MPV 11.2 (9.4-12.4) fL Immature Gran % (Auto) 0.5 H (0.0-0.4) % Neut % (Auto) 78.3 H (45-73) % Lymph % (Auto) 11.9 L (20-40) % [place] % (Auto) 8.6 (2-11) % Eos % (Auto) 0.5 (0-4) % Baso % (Auto) 0.2 (0-2) % Lymph # (Auto) 1.5 (1.2-4.9) X10*3/uL [place] # (Auto) 1.1 (0.1-1.2) X10*3/uL Eos # (Auto) 0.1 (0.0-0.4) X10*3/uL Baso # (Auto) 0.0 (0.0-0.2) X10*3/uL Abs Immat Gran (auto) 0.06 H (0.00-0.03) X10*3/uL Absolute Neuts (auto) 10.0 H (2.0-8.3) x10*3/uL Absolute Nucleated RBC 0.000 (0.0-0.012) X10*3/uL Nucleated RBC % (auto) 0.0 (0.0-0.2) /100WBC Sodium 141 (135-145) mmol/L Potassium 4.6 (3.3-5.1) mmol/L Chloride 108 (96-108) mmol/L Carbon Dioxide 26 (22-29) mmol/L Anion Gap 12 (12-20) BUN 15 (9-16) mg/dL Creatinine 0.77 (0.5-1.4) mg/dL Estim Creat Clear Calc 84.7 Estimated GFR > 60 Random Glucose 158 H (60-115) mg/dL Calcium 9.5 (8.4-10.2) mg/dL Total Bilirubin 1.4 H (0.0-1.0) mg/dL AST 20 (5-37) U/L ALT 16 (0-40) U/L Alkaline Phosphatase 60 (39-117) U/L Total Protein 7.1 (6.5-8.0) g/dL Albumin 4.3 (3.5-5.0) g/dL Lipase 26 (8-78) U/L Urine Color Yellow Urine Appearance Clear Urine pH 7.0 (5.0-9.0) Ur Specific [place] >= 1.030 H (1.005-1.025) Urine Protein Negative (Neg-Trace) mg/dL Urine Glucose (UA) >=1000 H (Negative) mg/dL Urine Ketones Negative (Negative) mg/dL Urine Blood Negative (Negative) Urine Nitrite Negative (Negative) Ur Leukocyte Esterase Negative (Negative) Urine RBC 0-2 (0-2) /HPF Urine WBC 0-5 (0-5) /HPF Ur Squamous Epith Cells 0-2 (0-2) /HPF Urine Bacteria None Seen (None Seen) Hyaline Casts 0-2 (0-2) /LPF Independent Historian Clinical information obtained from an independent historian. History obtained from or confirmed by: Spouse Tests considered The following testing was considered but not selected: No focal abdominal pain on exam. Doubt need for CT imaging Prescription Management I considered prescription management with: Pain Medication Discharge Plan Discharge Clinical Impression: Inguinal hernia Patient Disposition: Home, Self-Care Instructions: Inguinal Hernia (ED) Additional Instructions: You have an inguinal hernia. If this continues to bother you you may follow-up outpatient with General surgery to discuss her surgical options. If you develop severe abdominal pain, vomiting you may have a surgical emergency and you should return to the emergency room for an evaluation. Your blood pressure today was 98/67. Recheck your blood pressure tonight and write down this number. Before taking your morning medications tomorrow please check your blood pressure. If your blood pressure is less than 110/70 please hold your medication. Call your primary care doctor on Wednesday morning to report your blood pressures as they may need to adjust your medication Prescriptions: No Action spironolactone 25 mg tablet 25 mg PO DAILY Qty: 90 3RF furosemide 20 mg tablet 20 mg PO DAILY 30 Days Qty: 30 0RF sertraline 25 mg Tablet 25 mg PO DAILY carvedilol 12.5 mg tablet 18.75 mg PO BID albuterol sulfate 90 mcg/actuation HFA aerosol inhaler 2 puff inhalation QID PRN (Reason: shortness of breath or wheezing) 30 Days Qty: 8.5 0RF dicyclomine 20 mg tablet 20 mg PO TID Qty: 10 0RF tamsulosin 0.4 mg capsule 0.4 mg PO BEDTIME gabapentin 300 mg capsule 300 mg PO BEDTIME dapagliflozin propanediol [Farxiga] 10 mg tablet 10 mg PO DAILY sacubitril-valsartan [Entresto] 49-51 mg tablet 1 tab PO BID cyclobenzaprine 10 mg Tablet 10 mg PO Q8H PRN (Reason: Muscle Spasm) aspirin 81 mg Tablet,Delayed Release (Dr/Ec) 81 mg PO DAILY clotrimazole 1 % Cream 1 appl TOPICAL BID atorvastatin [Lipitor] 80 mg tablet 80 mg PO BEDTIME metformin 500 mg tablet 1,000 mg PO BID furosemide [Lasix] 20 mg tablet 20 mg PO DAILY PRN (Reason: weight gain) 30 Days Qty: 14 1RF Referrals: Farrah Jackson DO [Primary Care Provider, Internal Medicine] Nathaniel Ochoa MD [Physician, General Surgery] Interventions: ED Discharge Assessment Last Done: 07/21/25 12:16 Print Language: Croatian
[2025-07-21 12:07] VITALS: BP 98/67
[2025-07-21 12:10] VITALS: RESP 15; TEMP 36.5; O2SAT 100
[2025-07-21 12:16] VITALS: BP 98/52; PULSE 75; RESP 15; TEMP 36.5; O2SAT 100
== END 2025-07-21 12:29 | disposition home or self-care (01) ==
PROVIDERS: Emergency Provider Emergency Medicine Emergency Medical Services; PCP Family Medicine
DX: K40.90 Unilateral inguinal hernia, without obstruction or gangrene, not specified as recurrent (principal); R10.9 Unspecified abdominal pain; J44.9 Chronic obstructive pulmonary disease, unspecified; G47.33 Obstructive sleep apnea (adult) (pediatric); E11.9 Type 2 diabetes mellitus without complications; Z79.899 Other long term (current) drug therapy; Z95.0 Presence of cardiac pacemaker
CPT/HCPCS: 36415; 80053; 81001; 81003; 83690; 85025; 99283; 99284

== ENCOUNTER 2025-07-23 13:14 | Emergency (ER) | payer OTHER, SELFPAY ==
--- NOTE | ~2025-07-23 | XR_ITS ---
EXAMINATION: XR CHEST 1 VIEW HISTORY: CHF? COMPARISON: Comparison is made with the prior examination dated 06/20/2025. FINDINGS: A single AP portable view of the chest performed at 3:22 PM is submitted. A left-sided unipolar pacemaker is unchanged in position. There are postsurgical changes in the left upper lung zone. No focal airspace opacity is seen. There is no pleural effusion, pneumothorax, or pulmonary vascular congestion. The heart remains enlarged. There is degenerative disc disease of the spine. XR/XR chest 1V IMPRESSION: Cardiomegaly. No acute cardiopulmonary abnormality. Electronically signed by: Nehemiah Bates MD 07/23/2025 03:35 PM EDT
--- OUTSIDE RECORDS SUMMARY | 2025-07-23 12:00 | XMS_ITS | Encounter Summary ---
Author Organization [employer] Address [address] [place] [address] Care Team Providers Care Supervisor Cigarette Making Department Name Role Phone Farrah Jackson DO Primary Care Provider + [phone] Encounter Details Date Type Department Care Team ([facility] Contact Info) Description 07/23/2025 12:00 PM EDT Office Visit [facility] [address] [place] [address] Farrah Jackson DO [address] [place] [address] Chronic diarrhea (Primary Dx) Social History Tobacco Use Types [...] Sign Reading Time Taken Comments Blood Pressure 94/64 07/23/2025 12:47 PM EDT Pulse - - Temperature 36.2 C (97.2 F) 07/23/2025 12:03 PM EDT Respiratory Rate - - Oxygen Saturation - - Inhaled Oxygen Concentration - - Weight - - Height - - Body Mass Index - - documented in this encounter Plan of Treatment Upcoming Encounters Date Type Department Care Team (Late st Contact Info) Description 09/10/2025 1:00 PM EST Office Visit [facility] [address] [place] [address] Ludwigtali Marie, OD [address] [place] [address] documented as of this encounter Visit Diagnoses Diagnosis Chronic diarrhea- Primary Diarrhea documented in this encounter Additional Health Concerns Assessment Noted Time PHQ-9 Depression Total Score: 5 07/16/20 25 1:30 PM EDT documented as of this encounter Care Teams Supervisor Cigarette Making Department Relationship Specialty Start Date End Date Farrah Jackson DO [address] [place] [address] PCP - General Family Medicine 10/25/18 documented as of this encounter
[2025-07-23 13:25] VITALS: BP 96/62; PULSE 66; RESP 16; TEMP 36.4; O2SAT 97; BMI 21.5
--- NOTE | 2025-07-23 13:27 | ED.GENADULT ---
HPI - General Adult General Chief complaint: Nausea/Vomiting/Diarrhea Stated complaint: diarrhea Time Seen by Provider: 07/23/25 13:39 Source: patient and family Mode of arrival: ambulatory Limitations: no limitations History of Present Illness ED Provider: DR. Luna HPI narrative: a 64-year-old male came in from PCP office for evaluation of nonbloody watery diarrhea for the past day, no fever, no chills, no recent travel, no recent use of antibiotic, no abdominal pain, no fever, no sick contacts, no exposure to bad food, stated that he has been having nonbloody watery diarrhea 6 times today only. Related Data Home Medications ?Medication ?Instructions ?Recorded ?Confirmed atorvastatin 80 mg tablet (Lipitor) 80 mg PO BEDTIME 08/20/20 06/21/25 metformin 500 mg tablet 1,000 mg PO BID 08/20/20 06/21/25 carvedilol 12.5 mg tablet 18.75 mg PO BID 05/20/23 06/21/25 sertraline 25 mg tablet 25 mg PO DAILY 05/20/23 06/21/25 aspirin 81 mg tablet,delayed 81 mg PO DAILY 06/21/25 06/21/25 release clotrimazole 1 % topical cream 1 appl topical BID 06/21/25 06/21/25 cyclobenzaprine 10 mg tablet 10 mg PO Q8H PRN Muscle Spasm 06/21/25 06/21/25 dapagliflozin propanediol 10 mg 10 mg PO DAILY 06/21/25 06/21/25 tablet (Farxiga) gabapentin 300 mg capsule 300 mg PO BEDTIME 06/21/25 06/21/25 sacubitril 49 mg-valsartan 51 mg 1 tab PO BID 06/21/25 06/21/25 tablet (Entresto) tamsulosin 0.4 mg capsule 0.4 mg PO BEDTIME 06/21/25 06/21/25 Previous Rx's ?Medication ?Instructions ?Recorded spironolactone 25 mg tablet 25 mg PO DAILY #90 tabs 09/19/24 albuterol sulfate 90 mcg/actuation 2 puff inhalation QID PRN 01/03/25 aerosol inhaler shortness of breath or wheezing 1 month #8.5 grams furosemide 20 mg tablet 20 mg PO DAILY 30 days #30 tabs 03/27/25 dicyclomine 20 mg tablet 20 mg PO TID #10 tabs 05/30/25 furosemide 20 mg tablet (Lasix) 20 mg PO DAILY PRN weight gain 30 07/03/25 days #14 tabs Allergies Allergy/AdvReac Type Severity Reaction Status Date / Time oxycodone AdvReac Intermediate vomiting, Verified 07/23/25 13:30 delusions Review of Systems Review of Systems: All other systems are reviewed and are negative Constitutional: Reports as per HPI and Reports no additional constitutional complaints Eyes: Reports as per HPI and Reports no additional eye complaints Reports system reviewed and no additional complaints, except as documented Cardiovascular: Reports as per HPI and Reports no additional cardiovascular complaints Respiratory: Reports as per HPI and Reports no additional respiratory complaints Gastrointestinal: Reports as per HPI and Reports no additional gastrointestinal complaints Genitourinary: Reports no additional female genitourinary complaints Musculoskeletal: Reports no additional musculoskeletal complaints Skin/Breast: Reports system reviewed and no additional complaints, except as docu Psychiatric: Reports no additional psychiatric complaints Endocrine: Reports no additional endocrine complaints Hematologic/Lymphatic: Reports no additional hematologic/lymphatic complaints Allergic/Immunologic: Reports no additional allergic/immunologic complaints Reports system reviewed and no additional complaints, except as documented and Reports Abnormal speech present [facility] Past Medical History Medical History Pacemaker Gout [id number] deficiency Encounter for discussion regarding implantable cardioverter-defibrillator Cardiomyopathy COPD (chronic obstructive pulmonary disease) Essential hypertension PVC (premature ventricular contraction) MARVA (obstructive sleep apnea) Carcinoid tumor High cholesterol Prostate enlargement Diabetes Surgical History History of surgical procedure (~2022) History of prostate surgery Hx of colonoscopy History of bronchoscopy History of lobectomy of lung Family History Family History Son No problems noted. Father No problems noted. Social History Social History Household Members: Spouse Household Members Other:: Alexsandra Housing: House Are you a primary adult daycare coordinator to a significant other at home: No Do you presently have visiting nurse or other home services: No Alcohol intake: never Patient Tobacco Use Status: Never used Tobacco Smoked in Last 30 Days: No Second Hand Smoke Exposure: No Use of substances other than those prescribed or required for medical reasons: No Advance Directives: No Advance Directives Information Provided: No Do you have a plan to hurt others: No Plan service: No Current occupational status: retired 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 Blood pressure elevated. Heart rate normal. Respiratory rate normal. Temperature normal. Oxygen saturation normal. Appearance: Alert. Oriented X3. No acute distress. Head: Normal external exam. Normocephalic. Atraumatic. No Greenberg signs noted. No raccoon eyes noted Eyes: PERRLA. EOMI. Conjunctiva and sclera normal. Eyelids normal. ENT: TM's Normal. Pharynx normal. Uvula midline. Moist mucous membranes. No trismus noted. No drooling noted. No muffled voice noted. Neck: Normal inspection. Neck supple. FROM. No adenopathy. Thyroid Normal. No meningeal signs. No neck mass noted. CVS: Normal heart rate and rhythm. Heart sound normal. No murmurs noted. Pulses normal throughout. Respiratory: No respiratory distress. Painless inspiration. Breath sounds normal. No wheezes/rales/rhonchi noted. Chest nontender. No accessory muscle usage noted or decreased air movement noted. Abdomen: Soft and nontender. Bowel sounds normal in all 4 quadrants. No distention noted. No organomegaly noted. No visible injury noted. Back: No CVA tenderness. Full range of motion noted. Skin: Skin warm and dry. Normal skin color. Normal skin turgor. No rashes/lesions/lacerations noted. Extremities: No lower extremity edema. Extremities exhibit normal range of motion. Extremities nontender. Neuro: Oriented X 3. Cranial nerve exam: II-XII are grossly intact No motor deficit. No sensory deficit. Reflexes normal. Course Course Course Narrative: Rapid medical examination performed in triage by Sanna Jones PA-C. Patient is a 64 year old assigned male at presenting to the emergency department with hypotension and diarrhea. Detailed physical exam and review of systems are deferred to the behavior management specialist. EKG and labs ordered. Patient placed back in the waiting room pending room availability and results. Reevaluation(s) Reevaluation #1: Patient received 1 L of fluids able to tolerate p.o. intake well, no orthostatic hypotension, stable vital signs, unremarkable labs, repeat abdominal exam showed no abdominal tenderness, no guarding, no rebound tenderness, elevation of BNP but patient has no lower extremity swelling, no shortness of breath, no PND at home, and chest x-ray is not showing CHF. Time: 15:35 Medications Administered Discontinued Medications Generic Name Dose Route Start Last Admin Trade Name Freq PRN Reason Stop Dose Admin Sodium Chloride 1,000 mls @ 999 mls/hr 07/23/25 13:53 07/23/25 14:17 Ns IV 07/23/25 14:53 999 mls/hr .Q1H1M ONE Administration Medical Decision Making Differential Diagnosis Differential Diagnoses: The differential diagnosis associated with the presentation includes ( Dehydration, electrolyte derangement, orthostatic hypotension, intra-abdominal pathology, C diff, travel diarrhea.) Admission/Observation Consideration of admission/observation: Escalation of care including admission/observation considered Lab Data MDM Lab Attestation statement: I reviewed the patient's lab results. 07/23/25 14:19 07/23/25 14:19 Labs: Lab Results 07/23/25 Range/Units 14:19 WBC 11.1 H (4.8-10.8) X10*3/uL RBC 4.69 (4.60-5.80) X10*6/uL Hgb 13.7 L (14.0-18.0) g/dl Hct 42.1 (42.0-52.0) % MCV 89.8 (80.0-98.0) fL MCH 29.2 (27.0-33.0) pg MCHC 32.5 (31.0-36.0) g/dl RDW 16.7 H (11.0-16.0) % Plt Count 195 (160-400) X10*3/uL MPV 10.7 (9.4-12.4) fL Immature Gran % (Auto) 0.5 H (0.0-0.4) % Neut % (Auto) 73.7 H (45-73) % Lymph % (Auto) 15.2 L (20-40) % [place] % (Auto) 9.6 (2-11) % Eos % (Auto) 0.6 (0-4) % Baso % (Auto) 0.4 (0-2) % Lymph # (Auto) 1.7 (1.2-4.9) X10*3/uL [place] # (Auto) 1.1 (0.1-1.2) X10*3/uL Eos # (Auto) 0.1 (0.0-0.4) X10*3/uL Baso # (Auto) 0.1 (0.0-0.2) X10*3/uL Abs Immat Gran (auto) 0.06 H (0.00-0.03) X10*3/uL Absolute Neuts (auto) 8.2 (2.0-8.3) x10*3/uL Absolute Nucleated RBC 0.000 (0.0-0.012) X10*3/uL Nucleated RBC % (auto) 0.0 (0.0-0.2) /100WBC Sodium 143 (135-145) mmol/L Potassium 5.2 H (3.3-5.1) mmol/L Chloride 107 (96-108) mmol/L Carbon Dioxide 27 (22-29) mmol/L Anion Gap 14 (12-20) BUN 18 H (9-16) mg/dL Creatinine 0.77 (0.5-1.4) mg/dL Estim Creat Clear Calc 83.1 Estimated GFR > 60 Random Glucose 88 (60-115) mg/dL Calcium 9.9 (8.4-10.2) mg/dL Magnesium 1.9 (1.6-2.6) mg/dL Total Bilirubin 1.0 (0.0-1.0) mg/dL AST 41 H (5-37) U/L ALT 21 (0-40) U/L Alkaline Phosphatase 57 (39-117) U/L Troponin I High Sens 8.1 (<3.5-35.0) ng/L NT-Pro-B Natriuret Pep 1628.7 H (<300) pg/mL Total Protein 7.7 (6.5-8.0) g/dL Albumin 4.3 (3.5-5.0) g/dL Independent Interpretation I performed an independent interpretation of an: Plain X-Ray ( Chest x-ray:) Radiology Impression Discussion of test interpretation with radiology: I have reviewed the radiologist's reading. Discharge Plan Discharge Clinical Impression: Diarrhea Patient Disposition: Home, Self-Care Instructions: Dehydration (ED) Prescriptions: No Action spironolactone 25 mg tablet 25 mg PO DAILY Qty: 90 3RF furosemide 20 mg tablet 20 mg PO DAILY 30 Days Qty: 30 0RF sertraline 25 mg Tablet 25 mg PO DAILY carvedilol 12.5 mg tablet 18.75 mg PO BID albuterol sulfate 90 mcg/actuation HFA aerosol inhaler 2 puff inhalation QID PRN (Reason: shortness of breath or wheezing) 30 Days Qty: 8.5 0RF dicyclomine 20 mg tablet 20 mg PO TID Qty: 10 0RF tamsulosin 0.4 mg capsule 0.4 mg PO BEDTIME gabapentin 300 mg capsule 300 mg PO BEDTIME dapagliflozin propanediol [Farxiga] 10 mg tablet 10 mg PO DAILY sacubitril-valsartan [Entresto] 49-51 mg tablet 1 tab PO BID cyclobenzaprine 10 mg Tablet 10 mg PO Q8H PRN (Reason: Muscle Spasm) aspirin 81 mg Tablet,Delayed Release (Dr/Ec) 81 mg PO DAILY clotrimazole 1 % Cream 1 appl TOPICAL BID atorvastatin [Lipitor] 80 mg tablet 80 mg PO BEDTIME metformin 500 mg tablet 1,000 mg PO BID furosemide [Lasix] 20 mg tablet 20 mg PO DAILY PRN (Reason: weight gain) 30 Days Qty: 14 1RF Referrals: Farrah Jackson DO [Primary Care Provider, Internal Medicine] Print Language: Cambodian
[2025-07-23 14:22] LABS: MANUAL DIFF FLAG NO
[2025-07-23 14:24] LABS: Hematocrit 42.1 % (42.0-52.0); Hemoglobin 13.7 g/dl (14.0-18.0); Imm Gran Abs Auto 0.06 X10*3/uL (0.00-0.03); Imm Gran Pct Auto 0.5 % (0.0-0.4); Lymphocytes Absolute Auto 1.7 X10*3/uL (1.2-4.9); Mean Corpuscular HGB Conc 32.5 g/dl (31.0-36.0); Mean Corpuscular Hemoglobin 29.2 pg (27.0-33.0); Mean Corpuscular Volume 89.8 fL (80.0-98.0); NRBC Abs Auto 0.000 X10*3/uL (0.0-0.012); NRBC Pct Auto 0.0 /100WBC (0.0-0.2); Platelet Count 195 X10*3/uL (160-400); Red Blood Count 4.69 X10*6/uL (4.60-5.80); White Blood Count 11.1 X10*3/uL (4.8-10.8)
[2025-07-23 14:50] LABS: Alanine Aminotransferase 21 U/L (0-40); Albumin Level 4.3 g/dL (3.5-5.0); Alkaline Phosphatase 57 U/L (39-117); Anion Gap 14 (12-20); Aspartate Amino Transferase 41 U/L (5-37); Blood Urea Nitrogen 18 mg/dL (9-16); Calcium 9.9 mg/dL (8.4-10.2); Carbon Dioxide 27 mmol/L (22-29); Chloride 107 mmol/L (96-108); Creatinine Clr Calc Pharmacy 83.1; Estimated Glomerular Filt Rate > 60; Magnesium 1.9 mg/dL (1.6-2.6); NT Pro B Type Natriuretic Pept 1628.7 pg/mL (<300); Potassium 5.2 mmol/L (3.3-5.1); Sodium 143 mmol/L (135-145); Total Protein 7.7 g/dL (6.5-8.0); Troponin-I High Sensitivity 8.1 ng/L (<3.5-35.0)
--- OUTSIDE RECORDS SUMMARY | 2025-07-23 15:15 | XMS_ITS | Encounter Summary ---
Author Organization [employer] Address [address] [place] [address] Care Team Providers Care Medical Office Worker Name Role Phone Farrah Jackson DO Primary Care Provider + [phone] Reason for Visit * Reason Onset Date Comments pain medication to pharmacy 05/22/2024 Encounter Details Date Type Department Care Team ([facility] st Contact Info) Description 05/22/2024 Telephone [facility] [address] [place] [address] Farhad Knott, DMD [address] [place] [address] pain medication to pharmacy Social History Tobacco [...] EST Office Visit [facility] [address] [place] [address] Marie Zhao, OD [address] [place] [address] documented as of this encounter Visit Diagnoses Not on filedocumented in this encounter Additional Health Concerns Assessment Noted Time PHQ-9 Depression Total Score: 2 04/21/20 24 8:50 AM EDT documented as of this encounter Care Teams Medical Office Worker Relationship Specialty Start Date End Date Farrah Jackson DO [address] [place] [id number] PCP - General Family Medicine 10/25/18 documented as of this encounter
--- OUTSIDE RECORDS SUMMARY | 2025-07-23 15:15 | XMS_ITS | Clinical Summary ---
Author Organization [facility] Address [address] [place] [phone] Phone Care Team Providers Care Vasc Tech Name Role Phone Unavailable Primary Care Provider [...]
--- OUTSIDE RECORDS SUMMARY | 2025-07-23 15:15 | XMS_ITS | Clinical Summary ---
Author Organization [facility] Address [address] [address] Phone Care Team Providers Care Compliance Paralegal Name Role Phone KrissyFarrah knight Primary Care [...] on file Insurance GENERIC COMMERCIAL MD NGOZI [id number] GENERIC COMMERCIAL MD NGOZI [id number] GENERIC COMMERCIAL MD NGOZI [id number] GENERIC COMMERCIAL MD NGOZI [id number] GENERIC COMMERCIAL MD NGOZI [id number] GENERIC COMMERCIAL MD NGOZI [id number] GENERIC COMMERCIAL MD NGOZI [id number] GENERIC COMMERCIAL GENERIC COMMERCIAL Care Teams Compliance Paralegal Relationship Specialty Start Date End Date Farrah Jackson DO [address] [place] [address] PCP - General Family Medicine 01/06/19 Additional Source Comments The information contained in this document represents components of the legal health record. It is not the complete legal health record.[facility]
--- OUTSIDE RECORDS SUMMARY | 2025-07-23 15:15 | XMS_ITS | Encounter Summary ---
Author Organization [employer] Address [address] [place] [address] Care Team Providers Care Mortgage Clerk Name Role Phone Meagan Jacksonfer Primary Care Provider + [phone] Reason for Visit * Reason Comments Med Refill Encounter Details Date Type Department Care Team ([facility] Contact Info) Description 11/19/2023 Refill [facility] [address] [place], [place] [phone] Juana Wilson MD [address] [place], [place] [phone] Social History Tobacco Use Types Packs/Day Years [...] Description 09/10/2025 1:00 PM EST Office Visit [facility] OPT[facility]RY [address] [place], [place] [phone] Marie Zhao, OD [address] [place] [address] documented as of this encounter Visit Diagnoses Not on filedocumented in this encounter Care Teams Mortgage Clerk Relationship Specialty Start Date End Date Farrah Jackson DO [address] [place] [address] PCP - General Family Medicine 10/25/18 documented as of this encounter
--- OUTSIDE RECORDS SUMMARY | 2025-07-23 15:15 | XMS_ITS | Encounter Summary ---
Author Organization [facility] Address [address] [place] [address] Care Team Providers Care Anaesthesiologist Name Role Phone Unavailable Primary Care Provider Unavailabl e Encounter Details Date Type Department Care Team (Late st Contact Info) Description 09/11/2024 Lab Requisition [facility] - Main Lab [address] [place] [address] Krishna Jose MD [address] [facility] [address] [place] [phone] Elevated prostate specific antigen (PSA) Social History [...] Acute inflammation present. 09/20/2024 4:[address] [facility] Gross Description A. Urine, Voided, : [id number] Recd 1 TP CYTO 09/20/2024 4:[address] [facility] Disclaimer Unless otherwise specified, all tissue is 10% NB formalin fixed and paraffin embedded. 09/20/2024 4:27 PM EST [facility] Tissue Urine specimen from urethra / Unknown 09/06/2024 09/11/2024 1:13 PM EST us Krishna Jose MD LAB PATHOLOGY ORDERABLES Final Result [facility] [address] [place] [address], documented in this encounter Visit Diagnoses Diagnosis Elevated prostate specific antigen (PSA) documented in this encounter
--- OUTSIDE RECORDS SUMMARY | 2025-07-23 15:15 | XMS_ITS | Clinical Summary ---
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 Role Phone Farrah Jackson DO Primary Care Provider + [phone] Allergies Active Allergy Reactions Criticality Noted Date [...] microalbuminuria, without long-term current use of insulin (HCC) USE DIRECTED TO TEST BLOOD SUGAR TWICE [...] microalbuminuria, without long-term current use of insulin (HCC) USE TO TEST BLOOD SUGAR TWICE DAILY 100 each 5 09/19/202 5 Active Active Problems Problem Noted Date Diagnosed Date Hypomagnesemia 06/19/2024 Severe dental caries 05/30/2024 COPD (chronic obstructive pulmonary disease) 09/202308/05/2023 MARVA (obstructive sleep apnea) 08/05/2023 Nonischemic cardiomyopathy (CMS/HCC) 03/30/2023 AICD (automatic cardioverter/defibrillator) pres ent 03/30/2023 [...] & vomiting 06/19/2024 07/16/2025 NICM (nonischemic cardiomyopathy) (CMS/HCC) 08/05/2023 08/05/2023 08/05/2023 Irregular heart rhythm 04/07/201802/10 Chronic alcoholism in remission (CMS/HCC) 01/08/2017 03/30/2023 Encounters Date Type Department Care Team Description 07/23/2025 12:00 PM EDT Office Visit [facility] MEDICINE [address] [place] [address] Farrah Jackson DO Chronic diarrhea (Primary Dx) 07/23/2025 Orders Only GENERIC EXTERNAL DATA DEPARTMENT Provider, Generic External Data 07/23/2025 Telephone [facility] WALK-IN CENTER [address] [place] [address] Farrah Jackson DO Nurse Triage 07/23/2025 Travel 07/21/2025 Orders Only GENERIC EXTERNAL DATA DEPARTMENT Provider, Generic External Data 07/16/2025 12:00 PM EDT Office [facility] [place] [address] Farrah Jackson DO Unintentional weight loss (Primary Dx); Forgetfulness; History of tobacco use; Type 2 diabetes mellitus with microalbuminuria, without long-term current use of insulin (CMS/[facility]); Encounter for immunization 07/16/[address] [address] Farrah Jackson DO Durable Medical Equipment (DME prescription Ensure(CCA).) 07/16/2025 Travel 07/13/[address] [address] Farrah Jackson DO CHART PREP 07/13/[address] [address] Farrah Jackson DO Type 2 diabetes mellitus with microalbuminuria, without long-term current use of insulin (CMS/HCC) 06/22/2025 Patient Outreach [facility] [place] [address] Farrah Jackson DO Transition Of Care (Tcm) (HDF- patient denied ) 06/20/2025 Orders Only GENERIC EXTERNAL DATA DEPARTMENT Provider, Generic External Data 06/08/2025 11:30 AM EDT Office Visit [address] [address] Farrah Jackson DO Type 2 diabetes mellitus with microalbuminuria, without long-term current use of insulin (CMS/HCC) 06/08/2025 Travel 06/07/2025 Telephone [facility] [place] [address] Farrah Jackson DO chart prep 05/30/2025 Patient Outreach [address] [address] Farrah Jackson DO Pre-visit Planning (SDOH screening negative and tobacco screening negative) 05/30/[address] [address] Farrah Jackson DO Primary hypertension 05/29/2025 Orders Only [facility] External Provider, [facility] 05/25/2025 Telephone [facility] MEDICINE [address] [place] [address] Farrah Jackson DO Appointment Request 05/25/2025 Travel 05/08/2025 9:20 AM EDT Office Visit [facility] OPTOMETRY [address] [place] [address] HilarioLor martin, OD Type 2 diabetes mellitus with diabetic microalbuminuria, without long-term current use of insulin ([facility]) (Primary Dx) 05/08/2025 Telephone [facility] MEDICINE [address], [place] [phone] Farrah Jackson DO Med Refill 05/08/2025 Travel 04/29/2025 Refill [facility] MEDICINE [address] [place] [address] Farrah Jackson DO from Last 3 Months [...] Pressure 94/64 07/23/2025 12:47 PM EDT Pulse 70 07/16/2025 12:24 PM EDT Temperature 36.2 C (97.2 F) 07/23/2025 12:03 PM EDT Respiratory Rate 19 07/16/2025 12:24 [...] Description 09/10/2025 1:00 PM EST Office Visit [facility] OPTOMETRY [address] [place], [place] [phone] Marie Zhao, OD [address] [place] [address] Health Maintenance Due Date Last Done Comments [...] 06/08/2025 Depression Screening 07/16/2026 07/16/2025, 07/16/20 25 Lipid Panel 07/16/2026 07/16/2025, 03/26, 02/10/2023, Additional [...] Priority Date/Time Associated Diagnosis Comments MAGNESIUM Routine 07/23/2025 2:19 PM EDT COMPREHENSIVE METABOLIC PANEL Routine 07/23/2025 2:19 PM EDT NT-PROBNP Routine 07/23/2025 2:19 PM EDT HIGH SENSITIVITY TROPONIN I Routine 07/23/2025 2:19 PM EDT CBC WITH AUTO DIFFERENTIAL Routine 07/23/2025 2:19 PM EDT LIPASE Routine 07/21/2025 10:37 AM EDT [...] microalbuminuria, without long-term current use of insulin ([facility]) POCT GLUCOSE Routine 07/16/2025 12:26 PM EDT Type 2 diabetes mellitus with microalbuminuria, without long-term current use of insulin ([facility]) XR CHEST 2 VIEWS Routine 06/20/2025 10:4 [...] microalbuminuria, without long-term current use of insulin ([facility]) POCT GLUCOSE Routine 06/08/2025 11:30 AM EDT Type 2 diabetes mellitus with microalbuminuria, without long-term current use of insulin ([facility]) CT ABDOMEN PELVIS W CONTRAST Routine 05/30/2025 [...] Maintenance Results * High Sensitivity Troponin I (07/23/2025 2:19 PM EDT) Only the most recent of4 resultswithin the time period is included. TROPONIN I HIGH SENSITIVITY 8.1 <3.5 - 35.0 ng/L [facility] Comment:The [place] high sens itivity Troponin-I results should beused in conjunction with other diagnostic information suchas ECG, clinical observations and information, and patientsymptoms to aid in the diagnosis of OR. 07/23/2025 2:19 PM EDT 07/23/2025 2:21 PM EDT us Generic External Data Provider LAB BLOOD ORDERAB LES Final Result [facility] [address] [place] [phone] * (ABNORMAL) NT-proBNP (07/23/2025 2:19 PM EDT) [facility] NT-proBNP 1,628.7(H ) <300 pg/mL [facility] Comment:Reference Range:Age Group (years) NT-proBNP (pg/ml) InterpretationAll <300 Negative: HF unlikelyFor patients presenting to the ED with clinical suspicion ofnew onset or worsening HF, see below:18 to <50 >299.9 to <450.0 Grayzone: [id number] to 75 >299.9 to <900.0 other causes of>75 >299.9 to <1800.0 NT-proBNP [id number] to <50 >449.9 Positive: HF [id number] >899.9>75 >1799.9Note: Elevated NT-proBNP levels should be interpreted inthe context of other clinical information. 07/23/2025 2:19 PM EDT 07/23/2025 2:21 PM EDT us Generic External Data Provider LAB BLOOD ORDERAB LES Final Result [facility] [address] [place] [phone] * (ABNORMAL) CBC auto differential (07/23/2025 2:19 PM EDT) Only the most recent of5 resultswithin the time period is included. [facility] White Blood Count 11.1(H) 4.8 - 10.8 X10*3/uL [facility] Red Blood Count 4.69 4.60 - 5.80 X10*6/uL [facility] Hemoglobin 13.7(L) 14.0 - 18.0 g/dl [facility] Hematocrit 42.1 42.0 - 52.0 % [facility] Mean Corpuscular Volume 89.8 80.0 - 98.0 fL [facility] Mean Corpuscular Hemoglobin 29.2 27.0 - 33.0 pg [facility] Mean Corpuscular HGB Conc 32.5 31.0 - 36.0 g/dl [facility] Red Cell Distribution Width 16.7(H) 11.0 - 16.0 % [facility] Platelet Count 195 160 - 400 X10*3/uL [facility] Mean Platelet Volume 10.7 9.4 - 12.4 fL [facility] Neutrophils Percent Auto 73.7(H) 45 - 73 % [facility] Imm Gran Pct Auto 0.5(H) 0.0 - 0.4 % [facility] Lymphocytes Percent Auto 15.2(L) 20 - 40 % [facility] Monocytes Percent Auto 9.6 2 - 11 % [facility] Eosinophils Percent Auto 0.6 0 - 4 % [facility] Basophils Percent Auto 0.4 0 - 2 % [facility] NRBC Pct Auto 0.0 0.0 - 0.2 /100WBC [facility] Neutrophils Absolute Auto 8.2 2.0 - 8.3 x10*3/uL [facility] Imm Gran Abs Auto 0.06(H) 0.00 - 0.03 X10*3/uL [facility] Lymphocytes Absolute Auto 1.7 1.2 - 4.9 X10*3/uL [facility] Monocytes Absolute Auto 1.1 0.1 - 1.2 X10*3/uL [facility] Eosinophils Absolute Auto 0.1 0.0 - 0.4 X10*3/uL [facility] Basophils Absolute Auto 0.1 0.0 - 0.2 X10*3/uL [facility] NRBC Abs Auto 0.000 0.0 - 0.012 X10*3/uL [facility] 07/23/2025 2:19 PM EDT 07/23/2025 2:21 PM EDT us Generic External Data Provider LAB BLOOD ORDERAB LES Final Result [facility] [address] [place] [phone] * Magnesium (07/23/2025 2:19 PM EDT) Only the most recent of2 resultswithin the time period is included. Magnesium 1.9 1.6 - 2.6 mg/dL [facility] 07/23/2025 2:19 PM EDT 07/23/2025 2:21 PM EDT us Generic External Data Provider LAB BLOOD ORDERAB LES Final Result [facility] [address] [place] [phone] * (ABNORMAL) Comprehensive Metabolic Panel (07/23/2025 2:19 PM EDT) Only the most recent of3 resultswithin the time period is included. Sodium 143 135 - 145 mmol/L [facility] Potassium 5.2(H) 3.3 - 5.1 mmol/L [facility] Comment:Slight Hemolysis.Int erpret result with caution. Chloride 107 96 - 108 mmol/L [facility] Carbon Dioxide 27 22 - 29 mmol/L [facility] Anion Gap 14 12 - 20 [facility] Urea Nitrogen (BUN) 18(H) 9 - 16 mg/dL [facility] Creatinine, Serum 0.77 0.5 - 1.4 mg/dL [facility] Creatinine Clr Calc Pharmacy 83.1 [facility] Comment:eGFR (calculated fro m the MDRD study equation) and eCrCl(calculated from the Cockcroft-Gault equation) are based ondifferent parameters and may not yield comparable results.If eCrCl result is absurd, please check patient'sheight/weight. Estimated Glomerular Filt Rate >60 [facility] Comment:Chronic Kidney Disea se: Estimated GFR < 60 mL/min/1.29o5Mlvzev Kidney Disease: Estimated GFR < 15 mL/min/1.73m2 Glucose 88 60 - 115 mg/dL [facility] Calcium 9.9 8.4 - 10.2 mg/dL [facility] Bilirubin, Total 1.0 0.0 - 1.0 mg/dL [facility] Aspartate Amino Transferase 41(H) 5 - 37 U/L [facility] Comment:Slight Hemolysis.Int erpret result with caution. Alanine Aminotransferase 21 0 - 40 U/L [facility] Total Protein 7.7 6.5 - 8.0 g/dL [facility] Albumin Level 4.3 3.5 - 5.0 g/dL [facility] Alkaline Phosphatase 57 39 - 117 U/L [facility] 07/23/2025 2:19 PM EDT 07/23/2025 2:21 PM EDT us Generic External Data Provider LAB BLOOD ORDERAB LES Final Result [facility] [address] [place] [phone] * (ABNORMAL) Urinalysis, Complete, with Reflex to Culture (07/21/2025 10:37 AM EDT) Only the most recent of2 resultswithin the time period is included. Color Urine Yellow [facility] Appearance Urine Clear [facility] PH 7.0 5.0 - 9.0 [facility] Glucose Urine UA >=1000(A) Negative mg/dL [facility] Urine Blood Negative Negative [facility] Specific [place] - Urine >=1.030(H) 1.005 - 1.025 [facility] Urine Protein Negative Neg-Trace mg/dL [facility] Urine Ketones Negative Negative mg/dL [facility] Nitrite Urine Negative Negative [facility] Leukocyte Esterase Urine Negative Negative [facility] RBC Urine 0-2 0 - 2 /HPF [facility] Urine WBC 0-5 0 - 5 /HPF [facility] Urine Squamous Epithelial Cell 0-2 0 - 2 /HPF [facility] Urine Bacteria None Seen None Seen [facility] Hyaline Casts, Urine 0-2 0 - 2 /LPF [facility] 07/21/2025 10:3 7 AM EDT 07/21/2025 10:41 AM EDT Narrative [facility] - 07/21/2025 11:05 AM EDT [id number], Clean Catch us Generic External Data Provider LAB URINE ORDERAB LES Final Result Performing Organization Address [facility] Co de Phone Number [facility] [address] [place] [phone] * Lipase (07/21/2025 10:37 AM EDT) Only the most recent of2 resultswithin the time period is included. Pathologist [facility] Lipase 26 8 - 78 U/L [facility] 07/21/2025 10:3 7 AM EDT 07/21/2025 10:41 AM EDT us Generic External Data Provider LAB BLOOD ORDERAB LES Final Result Performing Organization Address [facility] Co de Phone Number [facility] [address] [place] [phone] * Leukocytes Stool Qualitative (07/17/2025 9:40 AM EDT) Pathologist [facility] Leukocytes Stool Qualitative NEGATIVE NEGATIVE [facility] Stool 07/17/2025 9:40 AM EDT 07/17/2025 12:13 PM EDT us Farrah Jackson DO LAB BODY FLUIDS AND STOOLS O RDERABLES Final Result Performing Organization Address [facility] Co de Phone Number [facility] [address] [place] [phone] * Stool - Gastrointestinal panel (07/17/2025 9:40 AM EDT) Pathologist [facility] Campylobacter Not Detected Not Detect. [facility] Plesiomonas shigelloides Not Detected Not Detect. [facility] Salmonella Not Detected Not Detect. [facility] Vibrio Not Detected Not Detect. [facility] Vibrio cholerae Not Detected Not Detect. [facility] YERSINIA ENTEROCOLITICA Not Detected Not Detect. [facility] Enteroaggregative E. coli (EAEC) Not Detected Not Detect. [facility] Enteropathogenic E. coli (EPEC) Not Detected Not Detect. [facility] Enterotoxigenic E. coli (ETEC) lt/st Not Detected Not Detect. [facility] Shiga-like toxin-producing E. coli (STEC) stx1/stx2 Not Detected Not Detect. [facility] E coli O157 Not applicable Not Detect. [facility] Comment:E. coli containing t he O157 antigen are a subset ofShiga-like toxin- producing E. coli (STEC). Shigella/Enteroinvasive E. coli (EIEC) Not Detected Not Detect. [facility] Cryptosporidium Not Detected Not Detect. [facility] Cyclospora cayetanensis Not Detected Not Detect. [facility] Entamoeba histolytica Not Detected Not Detect. [facility] Giardia lamblia Not Detected Not Detect. [facility] Adenovirus F 40/41 Not Detected Not Detect. [facility] Astrovirus Not Detected Not Detect. [facility] Norovirus GI/GII Not Detected Not Detect. [facility] Rotavirus A Not Detected Not Detect. [facility] Sapovirus Not Detected Not Detect. [facility] Comment: All results must be [...] assay is performed by Multiplexed PCR, utilizing [employer]. Stool Rectal contents / Unknown 07/17/2025 9:40 AM EDT 07/17/2025 12:13 PM EDT us Farrah Jackson DO LAB MICROBIOLOGY - GENERAL O RDERABLES Final Result [facility] [address] [place] [phone] * Vitamin D, 25-Hydroxy, Total, Immunoassay (07/16/2025 1:40 PM EDT) Vitamin D 25-OH Total 56.9 >30 ng/mL [facility] Comment: Health Based Reference Values*< 20 ng/mL Ctpuideth58-37 ng/mL Insufficient> 30 ng/mL Sufficient*Andrea VAZQUEZ. N [...] PM EDT 07/16/2025 4:09 PM EDT Farrah Chavesingridantonia DO LAB BLOOD ORDERABLES Final R esult Performing Organization Address [facility] Co de Phone Number [facility] [address] [place] [phone] * Vitamin B12 (Cobalamin) and Folate Panel, Serum (07/16/2025 1:40 PM EDT) Vitamin B12 365 200 - 900 pg/mL [facility] Comment:NORMAL 200-900 PG/ML INDETERMINATE 160-199 PG/ML DEFICIENT < 160 PG/ML Folate >20.0 > or = 4.0 ng/mL [facility] Comment:Reference Values:> o r = [...] ORDERABLES Final R esult Performing Organization Address [facility] Co de Phone Number [facility] [address] [place] [phone] * T-SPOT??.TB (07/16/2025 1:40 PM EDT) Pathologist [facility] T Spot TB Negative Negative [facility] Comment:A negative test resu lt [...] as aquantitative test. TS PANEL A 0 [facility] TS PANEL B 1 [facility] Negative Control Passed [facility] Positive Control Passed [facility] Comment:For additional infor maria del carmen, please refer tohttp://education.LifeBook/faq/RTJ506(This link is being provided for informational/educational purposes only.)THIS TEST WAS PERFORMED AT:[employer] [id number] [place] [phone] AVILES MD,PHD 07/16/2025 1:40 PM EDT 07/16/2025 4:03 PM EDT us Farrah Jackson DO LAB BLOOD ORDERABLES Final R esult [facility] [address] [place] [phone] * (ABNORMAL) Albumin, Random Urine W/Creatinine (07/16/2025 1:40 PM EDT) Creatinine, Urine 48.41 mg/dL [facility] Microalbumin Urine 15.0 mg/L [facility] Microalbum Creatinine Ratio Ur 30.9(H) <30 ug/mg cr [facility] Comment:Albumin/Creatinine R atio Reference Ranges: Normal: < 30 ug/mg creatinine Microalbuminuria: 30 - 300 ug/mg creatinineClinical Albuminuria: > 300 ug/mg creatinine Urine (Urine, Random) 07/16/2025 1:40 PM EDT 07/16/2025 4:03 PM EDT Farrah Renetta LAB URINE ORDERABLES Final R esult Performing Organization Address [facility] Co de Phone Number [facility] [address] [place] [phone] * Hepatitis C Antibody with Reflex to HCV, RNA, Quantitative, Real-Time PCR (07/16/2025 1:40 PM EDT) Pathologist [facility] Hepatitis C Antibody Nonreactive Nonreactive [facility] Comment:Antibodies to HCV no t detected; does not exclude early acuteHCV infection. Blood Venous blood specimen / Unknown 07/16/2025 1:40 PM EDT 07/16/2025 4:03 PM EDT Farrah Renetta VASQUEZ LAB BLOOD ORDERABLES Final R esult Performing Organization Address [facility] de Phone Number [facility] [address] [place] [phone] * Alpha-Fetoprotein, Tumor Marker (07/16/2025 1:40 PM EDT) Pathologist [facility] Alpha Fetoprotein 1.1 <6.1 ng/mL [facility] Comment:This test was perfor med using the Malorie Coulterchemiluminescent method. Values obtained fromdifferent assay methods cannot be usedinterchangeably. AFP levels, regardless ofvalue, should not be interpreted as absoluteevidence of the presence or absence of disease.THIS TEST WAS PERFORMED AT:[employer] [place] [phone] SOTO MD Blood Venous blood specimen / Unknown 07/16/2025 1:40 PM EDT 07/16/2025 4:09 PM EDT Farrah Renetta LAB BLOOD ORDERABLES Final R esult Performing Organization Address [facility] Co de Phone Number [facility] [address] [place] [phone] * Hepatitis B surface antigen, EIA (07/16/2025 1:40 PM EDT) Pathologist [facility] Hepatitis B Surface Ag Negative Negative [facility] Blood Venous blood specimen / Unknown 07/16/2025 1:40 PM EDT 07/16/2025 4:03 PM EDT [facility] BLOOD ORDERABLES Final R esult Performing Organization Address [facility] Co de Phone Number [facility] [address] [place] [address] [phone] * RPR (Monitor) with Reflex to??Titer (07/16/2025 1:40 PM EDT) [facility] RPR (Monitor) w/Refl Titer NON-REACTI VE NON-REACT EYAD [facility] Comment:THIS TEST WAS PERFOR MED AT:[employer] [place] [phone] SOTO MD Rapid Plasma Reagin Ab Titer TNP [facility] Blood Venous blood specimen / Unknown 07/16/2025 1:40 PM EDT 07/16/2025 4:03 PM EDT [facility] LAB BLOOD ORDERABLES Final R esult Performing Organization Address [facility] Co de Phone Number [facility] [address] [place] [phone] * HIV-1/2 Antigen and Antibodies, Fourth Generation, with Reflexes (07/16/2025 1:40 PM EDT) [facility] HIV AB/AG Nonreactive Nonreactive [facility] Comment:HIV-1 p24 Ag and/or HIV-1/HIV-2 Ab not detected.A test result that is nonreactive does not exclude thepossibility of exposure to or infection with HIV-1 and/orHIV-2. Nonreactive results in this assay for individualswith prior exposure to HIV-1 and/or HIV-2 may be due toantigen and antibody levels that are below the limit ofdetection of this assay.The [employer] HIV Ag/Ab Combo assay result andsupplemental assay results should be interpreted inconjunction with the patient's clinical presentation,history and other laboratory results. If the results areinconsistent with clinical evidence, additional testing issuggested to confirm the result. Blood Venous blood specimen / Unknown 07/16/2025 1:40 PM EDT 07/16/2025 4:03 PM EDT Farrah Jackson LAB BLOOD ORDERABLES Final R esult Performing Organization Address [facility] Co de Phone Number [facility] [address] [place] [phone] * Hepatitis B Surface Antibody, Qualitative (07/16/2025 1:40 PM EDT) ~Hepatitis B Surface Antibody REACTIVE Nonreactive [facility] Comment:REACTIVE: > 11.99 mI U/mL Blood Venous blood specimen / Unknown 07/16/2025 1:40 PM EDT 07/16/2025 4:03 PM EDT Farrah Jackson DO LAB BLOOD ORDERABLES Final R esult Performing Organization Address [facility] Co de Phone Number [facility] [address] [place] [phone] * (ABNORMAL) Urinalysis Complete (07/16/2025 1:40 PM EDT) Color Urine Yellow [facility] Appearance Urine Clear [facility] PH 5.5 5.0 - 9.0 [facility] Glucose Urine UA >=1000(A) Negative mg/dL [facility] Urine Blood Negative Negative [facility] Specific [place] - Urine 1.020 1.005 - 1.025 [facility] Urine Protein Negative Neg-Trace mg/dL [facility] Urine Ketones Negative Negative mg/dL [facility] Nitrite Urine Negative Negative [facility] Leukocyte Esterase Urine Negative Negative [facility] RBC Urine 0-2 0 - 2 /HPF [facility] Urine WBC 0-5 0 - 5 /HPF [facility] Urine Squamous Epithelial Cell 0-2 0 - 2 /HPF [facility] Urine Bacteria None Seen None Seen [facility] Hyaline Casts, Urine 0-2 0 - 2 /LPF [facility] Urine (Urine, Random) 07/16/2025 1:40 PM EDT 07/16/2025 4:03 PM EDT us Farrah Jackson DO LAB URINE ORDERABLES Final R esult Performing Organization Address [facility]/ZIP Co de Phone Number [facility] [address] [place] [phone] * Sed Rate by Modified Westergren (07/16/2025 1:40 PM EDT) Erythrocyte Sedimentation Rate 2 0 - 15 MM/HR [facility] Comment:Patients with polycy themia and many hemoglobin abnormalitiesmay have depressed sed rates whereas patients with anemiamay have elevated sed rates. Blood Venous blood specimen / Unknown 07/16/2025 1:40 PM EDT 07/16/2025 4:03 PM EDT us Farrah Jackson DO LAB BLOOD ORDERABLES Final R esult Performing Organization Address [facility]/ZIP Co de Phone Number [facility] [address] [place] [phone] * C-reactive Protein (07/16/2025 1:40 PM EDT) C Reactive Protein 0.30 < or = 0.50 mg/dL [facility] Blood Venous blood specimen / Unknown 07/16/2025 1:40 PM EDT 07/16/2025 4:09 PM EDT Farrah Jackson LAB BLOOD ORDERABLES Final R esult Performing Organization Address [facility] Co de Phone Number [facility] [address] [place] [phone] * TSH (07/16/2025 1:40 PM EDT) Thyroid Stimulating Hormone 1.75 0.32 - 4.0 uIU/mL [facility] Comment:TSH 3rd Generation ( [facility]) Blood Venous blood specimen / Unknown 07/16/2025 1:40 PM EDT 07/16/2025 4:09 PM EDT Farrah Jackson LAB BLOOD ORDERABLES Final R esult Performing Organization Address [facility] de Phone Number [facility] [address] [place] [phone] * T4, Free (07/16/2025 1:40 PM EDT) Free T4 (Free Thyroxine) 0.95 0.71 - 1.85 ng/dL [facility] Blood Venous blood specimen / Unknown 07/16/2025 1:40 PM EDT 07/16/2025 4:09 PM EDT Farrah Jackson LAB BLOOD ORDERABLES Final R esult Performing Organization Address [facility] Co de Phone Number [facility] [address] [place] [phone] * (ABNORMAL) PSA,Total (07/16/2025 1:40 PM EDT) Prostate Specific Antigen 5.00(H) <0.05 - 4.0 ng/mL [facility] Comment:PSA methodology: Abb codey Alinity i ChemiluminescentMicroparticle Immunoassay (CMIA) Blood Venous blood specimen / Unknown 07/16/2025 1:40 PM EDT 07/16/2025 4:03 PM EDT Farrah Jackson DO LAB BLOOD ORDERABLES Final R esult Performing Organization Address [facility] Co de Phone Number [facility] [address] [place] [phone] * Prealbumin (07/16/2025 1:40 PM EDT) Prealbumin 25.0 20 - 40 mg/dL [facility] Blood Venous blood specimen / Unknown 07/16/2025 1:40 PM EDT 07/16/2025 4:03 PM EDT Farrah Jackson DO LAB BLOOD ORDERABLES Final R esult Performing Organization Address [facility] Co de Phone Number [facility] [address] [place] [phone] * Hemoglobin A1c (07/16/2025 1:40 PM EDT) Hemoglobin A1c 5.8 <6.0 % [facility] Comment:Hemoglobin A1C Refer ence Range Adults: 4.8 - 6.0 % Non diabetic: < 6.0 % Goal: < 7.0 %Additional Action Suggested: > 8.0 %Note: Hemoglobin A1c results are invalid for patients with abnormal amounts of HbF. Blood transfusions may impact the HbA1c concentration in the patient sample. Estimated Average Glucose 120 mg/dL [facility] Comment:eAG = Estimated ave rage glucose which is %A1C expressed asaverage glucose, using the formula of the D3C-ErjaozgGtazagw Glucose study (ADAG), Diabetes Care, Vol.31,#8,May. 2007 Blood Venous blood specimen / Unknown 07/16/2025 1:40 PM EDT 07/16/2025 4:03 PM EDT Result [facility] Farrah Chavesingridantonia DO LAB BLOOD ORDERABLES Final R esult [facility] [address] [place] [phone] [phone] * Hepatic Function Panel (07/16/2025 1:40 PM EDT) Only the most recent of2 resultswithin the time period is included. Bilirubin, Total 0.8 0.0 - 1.0 mg/dL [facility] Bilirubin, Direct 0.4 0.0 - 0.5 mg/dL [facility] Aspartate Amino Transferase 33 5 - 37 U/L [facility] Alanine Aminotransferase 23 0 - 40 U/L [facility] Total Protein 7.2 6.5 - 8.0 g/dL [facility] Albumin Level 4.3 3.5 - 5.0 g/dL [facility] Alkaline Phosphatase 58 39 - 117 U/L [facility] Blood Venous blood specimen / Unknown 07/16/2025 1:40 PM EDT 07/16/2025 4:09 PM EDT Farrah Jackson DO LAB BLOOD ORDERABLES Final R esult [facility] [address] [place] [phone] * (ABNORMAL) Lipid Panel, Standard (07/16/2025 1:40 PM EDT) Triglycerides 46 <150 mg/dL [facility] Comment:Desirable Triglyceri de: less than 150 mg/dLBorderline High Triglyceride 150-199 mg/dLHigh Triglyceride: 200-499 mg/dLVery High Triglyceride: greater than or equal to 5OO mg/dL Cholesterol 87 <200 mg/dL [facility] Comment:Desirable Cholestero l: less than 200 mg/dLBorderline High Cholesterol: 200-239 mg/dLHigh Cholesterol: greater than 239 mg/dL LDL Cholesterol Calculated 42 <100 mg/dL [facility] Comment:Desirable LDL: less than 100 mg/dLNear Optimal/Above Optimal LDL: 110- 129 mg/dLBorderline High LDL: 130-159 mg/dLHigh LDL: 160-189 mg/dLVery High LDL: greater than or equal to 190 mg/dL HDL Cholesterol 36(L) >40 mg/dL [facility] Comment:Desirable HDL: great er than 40 mg/dL Note: This HDL assay may give artificially low results in patients with liver disease. Blood Venous blood specimen / Unknown 07/16/2025 1:40 PM EDT 07/16/2025 4:09 PM EDT us Farrah Jackson DO LAB BLOOD ORDERABLES Final R esult [facility] [address] [place] [phone] * Basic Metabolic Panel (07/16/2025 1:40 PM EDT) Only the most recent of2 resultswithin the time period is included. Sodium 143 135 - 145 mmol/L [facility] Potassium 3.9 3.3 - 5.1 mmol/L [facility] Chloride 108 96 - 108 mmol/L [facility] Carbon Dioxide 27 22 - 29 mmol/L [facility] Anion Gap 12 12 - 20 [facility] Urea Nitrogen (BUN) 15 9 - 16 mg/dL [facility] Creatinine, Serum 0.80 0.5 - 1.4 mg/dL [facility] Estimated Glomerular Filt Rate >60 [facility] Comment:Chronic Kidney Disea se: Estimated GFR < 60 mL/min/1.24i4Grjylc Kidney Disease: Estimated GFR < 15 mL/min/1.73m2 Glucose 83 60 - 115 mg/dL [facility] Calcium 9.6 8.4 - 10.2 mg/dL [facility] Blood Venous blood specimen / Unknown 07/16/2025 1:40 PM EDT 07/16/2025 4:09 PM EDT Farrah Chavessamantha DO LAB BLOOD ORDERABLES Final R esult [facility] [address] [place] [address] [phone] * POCT Hgb A1c (07/16/2025 12:27 PM EDT) Only the most recent of2 resultswithin the time period is included. Hemoglobin A1C 5.5 4.0 - 5.7 % [employer] Lot # [id number] Lot# Expiration Date Blood 07/16/2025 12:2 7 PM EDT Farrah Chavessamantha DO POINT OF CARE TEST ENTER/NILESH T ORDERABLES Final Result * POCT Glucose (07/16/2025 12:26 PM EDT) Only the most recent of2 resultswithin the time period is included. Glucose Blood, POC 104 60 - 200 mg/dL [employer] Lot # [id number] Lot# Expiration Date , Blood Capillary blood specimen / Unknown 07/16/2025 12:26 PM EDT Farrah Jackson DO POINT OF CARE TEST ENTER/NILESH T ORDERABLES Final Result * XR Chest 2 Views (06/20/2025 10:42 PM EDT) Only the most recent of2 resultswithin the time period is included. Anatomical Region Laterality Modality Chest Radiographic Dasia ging 06/20/2025 10:4 2 PM EDT Narrative 06/20/2025 10:44 PM EDT [address] [address] XRay Report Signed Patient: Sonny Cuirel MR#: [id number] : 1960 Acct:[id number] Age/Sex: 64 / M ADM Date: 06/20/25 Loc: HO.ED Attending Dr: Ordering Physician: Tamiko Luna MD Date of Service: 06/20/25 Procedure(s): XR chest 2V Accession Number(s): [id number] cc: Tamiko Luna MD; Farrah Jackson DO CLINICAL HISTORY: sob --- Additional Notes or Special Instructions: with doctor-09:21pm Chest X-ray, 2 Views COMPARISON: CR/SR - XR CHEST 2 VIEWS - 05/29/25 16:16 EDT CR - XR CHEST 2V - 03/17/25 11:07 EDT CR/TX/SR - XR CHEST 2V - 12/19/22 11:51 [...] in OV> 06/20/252242 DD/ 41 TD/TT: 06/20/252241 Home Fire Alarm Installer: Procedure Note Donotuseinterpreter, Image - 06/20/[address] [address] XRay Report Signed Patient: Emily Curiel#: [id number] : 9Acct:[id number] Age/Sex: 64 / MADM Date: 06/20/25 Loc: HO.ED Attending Dr: Ordering Physician: Tamiko Luna MD Date of Service: 06/20/25 Procedure(s): XR chest 2V Accession Number(s): [id number] cc: Tamiko Luna MD; Farrah Jackson DO CLINICAL HISTORY: sob --- Additional Notes or Special Instructions: withdoctor-09:21pm Chest X-ray, 2 Views COMPARISON: CR/SR - XR CHEST 2 VIEWS - 05/29/25 16:16 EDT CR - XR CHEST 2V - 03/17/25 11:07 EDT CR/TX/SR - XR CHEST 2V - 12/19/22 11:51 [...] in OV> 06/20/252242 DD/ 41 TD/TT: 06/20/252241 Home Fire Alarm Installer: [facility] External Provider IMG XR PROCEDURES Edited Result - Final * (ABNORMAL) B Type Natriuretic Peptide (BNP) (06/20/2025 9:37 PM EDT) Only the most recent of2 resultswithin the time period is included. Pathologist [facility] B Type Natriuretic Peptide 3,006(H) <100 pg/mL [facility] 06/20/2025 9:37 PM EDT 06/20/2025 9:40 PM EDT Generic External Data Provider LAB BLOOD ORDERAB LES Final Result [facility] [address] [place] [address] [phone] * Influenza A B2 ID NOW ([facility]) (06/20/2025 6:41 PM EDT) IDNOW SERIAL# [id number] [facility] Influenza A Negative Negative [facility] Influenza B2 Negative Negative [facility] Influenza A B2 Note See Note [facility] Comment:The [facility] ID NOW In [...] LAB MICROBIOLOGY - GENERAL ORDERABLES Final Result [facility] [address] [place] [phone] * COVID-19 ID NOW ([facility]) (06/20/2025 6:41 PM EDT) IDNOW SERIAL# [id number] [facility] COVID-19 TEST Negative Negative [facility] COVID-19 NOTE See Note [facility] Comment: Results are for the identification of SARS-CoV2 RNA. TheSARS-CoV2 RNA is generally detectable in respiratory samplesduring the acute phase of infection. Positive results areindicative of the presence of SARS-CoV-2 RNA; clinicalcorrelation with patient history and other diagnosticinformation is necessary to determine patient infectionstatus. Positive results do not rule out bacterial infectionor co- infection with other viruses.Testing facilities within the [facility] and itsterritories are required to report all [...] use by authorized laboratories.Testing performed on the [employer] ID NOW utilizing NAAT. 06/20/2025 6:41 PM EDT 06/20/2025 6:45 PM EDT us Generic External Data Provider LAB MOLECULAR RENETTA GNOSTICS ORDERABLES Final Result Performing Organization Address City/State/[facility] Co de Phone Number [facility] [address] [place] [address] [phone] * CT Abdomen Pelvis w/ Contrast (05/30/2025 2:12 AM EDT) Anatomical Region Laterality Modality Body, Pelvis, Abdomen Computed T omography 05/30/2025 2:12 AM EDT Narrative 05/30/2025 2:14 AM EDT [place] [address] [address] Scan Report Signed Patient: Sonny Curiel MR#: [id number] : 1960 Acct:[id number] Age/Sex: 64 / M ADM Date: 05/29/25 Loc: .ED Attending Dr: Ordering Physician: Deepa Noe DO Date of Service: 05/30/25 Procedure(s): CT abdomen pelvis w IV con Accession Number(s): [id number] cc: Deepa Noe DO; Farrah Jackson DO Report Number: [id number]: Total DLP = 467.00 mGy-cm CLINICAL HISTORY: RLQ abd pain eval for appy --- Additional Notes or Special Instructions: oral contrast started at 2220. jat CT abdomen and pelvis with contrast Comparison: CT - CT ABDOMEN PELVIS W IV CON - 05/30/25 00:[address]/TX/SR - CT ABDOMEN PELVIS WITH IV CONTRAST [...] in OV> 05/30/25212 DD/ 1 TD/TT: 05/30/25211 Home Fire Alarm Installer: Procedure Note Donotuseinterpreter, Image - 05/30/[address] [place] [address] [address] Scan Report Signed Patient: Emily Curiel#: [id number] : 9Acct:[id number] Age/Sex: 64 / MADM Date: 05/29/25 Loc: HO.ED Attending Dr: Ordering Physician: Deepa Noe DO Date of Service: 05/30/25 Procedure(s): CT abdomen pelvis w IV con Accession Number(s): [id number] cc: Deepa Noe DO; Farrah Jackson DO Report Number: [id number]: Total DLP = 467.00 mGy-cm CLINICAL HISTORY: RLQ abd pain eval for appy --- Additional Notes orSpecial Instructions: oral contrast started at 2220. jat CT abdomen and pelvis with contrast Comparison: CT - CT ABDOMEN PELVIS W IV CON - 05/30/25 00:[address]/TX/SR - CT ABDOMEN PELVIS WITH IV CONTRAST [...] in OV> 05/30/25212 DD/ 1 TD/TT: 05/30/25211 Home Fire Alarm Installer: [facility] External Provider IMG CT PROCEDURES Final Result * SARS-CoV-2 RNA, Influenza A/B, and RSV RNA, Ql NAAT (05/29/2025 4:29 PM EDT) Influenza A PCR NEGATIVE Negative [facility] Influenza B PCR NEGATIVE Negative [facility] Resp Syncy Virus RNA Qual PCR NEGATIVE Negative [facility] SARS COV2 PCR NEGATIVE Negative [facility] Comment:All test results mus t [...] use by authorized laboratories.Testing performed on the [employer] GeneXpert utilizingreal-time RT-PCR.All SARS CoV2 and positive influenza A/B results arereported to [facility]. 05/29/2025 4:29 PM EDT 05/29/2025 4:35 PM EDT us Generic External Data Provider LAB MICROBIOLOGY - GENERAL ORDERABLES Final Result [facility] [address] [place] [address] [phone] * Cologuard?? colon cancer screening (08/26/2023 12:36 PM EDT) Cologuard Result Negative Negative 09/02/20 1:54 AM Dagne [facility] (CLIA #:[id number]) Comment: NEGATIVE TEST RESULT. A negative Cologuard [...] (Liang Champion al, N Engl J Med 2014;370(14):0596-4996) The normal value (reference range) for this assay is negative. COLOGUARD RE-SCREENING RECOMMENDATION: Periodic colorectal cancer screening is an important part of preventive healthcare for asymptomatic individuals at average risk for colorectal cancer. Following a negative Cologuard result, the [place] [employer] and U.S. Multi-Society Task Force screening guidelines recommend a Cologuard re-screening interval of 3 years. References: [place] [employer] Guideline for Colorectal Cancer Screening: https://www.cancer.org/cancer/sujms-mwdexf-kxugre/wegrmpfcz-mtvimldcn-nonlhkq/ac s-rec ommendations.html.; Matty DK, Krys CR, Shelton MCDONNELL, Colorectal Cancer Screening: Recommendations for Physicians and Patients from the U.S. Multi-Society Task Force on Colorectal Cancer Screening , Am J Gastroenterology 2017; 112:2306-4288. TEST DESCRIPTION: Composite algorithmic analysis of stool [...] Toussaint et al, N Engl J Med 2014;370(14):0732-6786.) Cologuard may produce a false negative or false positive result (no colorectal cancer or precancerous polyp present at colonoscopy follow up). A negative Cologuard test result does not guarantee the absence of CRC or advanced adenoma (pre-cancer). The current Cologuard screening interval is every 3 years. ([place] [employer] Society and U.S. Multi-Society Task Force). Cologuard performance data in a 10,000 patient pivotal study using colonoscopy as the reference method can be accessed at the following location: www.[employer].com/results. Additional description of the Cologuard test process, warnings and precautions can be found at www.[employer].com. Stool specimen (specimen) 08/26/2023 12:36 PM EDT 08/27/2023 6:19 PM EDT Farrah Jackson DO LAB MOLECULAR DIAGNOSTICS OR DERABLES Final Result [facility] (CLIA #:[id number]) [place] [address], from Last 3 Months or Most Recently Relevant to Health Maintenance Insurance [address] [place] [address] [facility] STANDARD [employer] N[facility] [employer] (O D-SNP) [facility]AL - [facility] Care Teams Shellfish Processing Laborer Relationship Specialty Start Date End Date Farrah Jackson DO [address] [place] [phone] PCP - General Family Medicine 10/25/18
--- OUTSIDE RECORDS SUMMARY | 2025-07-23 15:15 | XMS_ITS | Encounter Summary ---
Author Organization [employer] Address [address] [place] [address] Care Team Providers Care Health Technical Writer Name Role Phone Meagan Jacksonfer Primary Care Provider + [phone] Encounter Details Date Type Department Care Team ([facility] Contact Info) Description 07/21/2025 Orders Only GENERIC [...] Description 09/10/2025 1:00 PM EST Office Visit [facility] [address] [place] [address] TarkaMarie, OD [address] [place] [address] documented as of this encounter Procedures Procedure [...] EDT) Lipase 26 8 - 78 U/L [facility] 07/21/2025 10:3 7 AM EDT 07/21/2025 10:41 AM EDT us Generic External Data Provider LAB BLOOD ORDERAB LES Final Result [facility] [address] [place] [address] [phone] * (ABNORMAL) Comprehensive Metabolic Panel (07/21/2025 10:37 AM EDT) Sodium 141 135 - 145 mmol/L [facility] Potassium 4.6 3.3 - 5.1 mmol/L [facility] Chloride 108 96 - 108 mmol/L [facility] Carbon Dioxide 26 22 - 29 mmol/L [facility] Anion Gap 12 12 - 20 [facility] Urea Nitrogen (BUN) 15 9 - 16 mg/dL [facility] Creatinine, Serum 0.77 0.5 - 1.4 mg/dL [facility] Creatinine Clr Calc Pharmacy 84.7 [facility] Comment:eGFR (calculated fro m the MDRD study equation) and eCrCl(calculated from the Cockcroft-Gault equation) are based ondifferent parameters and may not yield comparable results.If eCrCl result is absurd, please check patient'sheight/weight. Estimated Glomerular Filt Rate >60 [facility] Comment:Chronic Kidney Disea se: Estimated GFR < 60 mL/min/1.28c2Zswgyh Kidney Disease: Estimated GFR < 15 mL/min/1.73m2 Glucose 158(H) 60 - 115 mg/dL [facility] Calcium 9.5 8.4 - 10.2 mg/dL [facility] Bilirubin, Total 1.4(H) 0.0 - 1.0 mg/dL [facility] Aspartate Amino Transferase 20 5 - 37 U/L [facility] Alanine Aminotransferase 16 0 - 40 U/L [facility] Total Protein 7.1 6.5 - 8.0 g/dL [facility] Albumin Level 4.3 3.5 - 5.0 g/dL [facility] Alkaline Phosphatase 60 39 - 117 U/L [facility] 07/21/2025 10:3 7 AM EDT 07/21/2025 10:41 AM EDT us Generic External Data Provider LAB BLOOD ORDERAB LES Final Result [facility] [address] [place] [phone] [phone] * (ABNORMAL) Urinalysis, Complete, with Reflex to Culture (07/21/2025 10:37 AM EDT) Color Urine Yellow [facility] Appearance Urine Clear [facility] PH 7.0 5.0 - 9.0 [facility] Glucose Urine UA >=1000(A) Negative mg/dL [facility] Urine Blood Negative Negative [facility] Specific Center - Urine >=1.030(H) 1.005 - 1.025 [facility] Urine Protein Negative Neg-Trace mg/dL [facility] Urine Ketones Negative Negative mg/dL [facility] Nitrite Urine Negative Negative [facility] Leukocyte Esterase Urine Negative Negative [facility] RBC Urine 0-2 0 - 2 /HPF [facility] Urine WBC 0-5 0 - 5 /HPF [facility] Urine Squamous Epithelial Cell 0-2 0 - 2 /HPF [facility] Urine Bacteria None Seen None Seen [facility] Hyaline Casts, Urine 0-2 0 - 2 /LPF [facility] 07/21/2025 10:3 7 AM EDT 07/21/2025 10:41 AM EDT Narrative [facility] - 07/21/2025 11:05 AM EDT [id number], [employer] us Generic External Data Provider LAB URINE ORDERAB LES Final Result [facility] [address] [place] [address] [phone] * (ABNORMAL) CBC auto differential (07/21/2025 10:37 AM EDT) White Blood Count 12.7(H) 4.8 - 10.8 X10*3/uL [facility] Red Blood Count 4.76 4.60 - 5.80 X10*6/uL [facility] Hemoglobin 13.8(L) 14.0 - 18.0 g/dl [facility] Hematocrit 43.6 42.0 - 52.0 % [facility] Mean Corpuscular Volume 91.6 80.0 - 98.0 fL [facility] Mean Corpuscular Hemoglobin 29.0 27.0 - 33.0 pg [facility] Mean Corpuscular HGB Conc 31.7 31.0 - 36.0 g/dl [facility] Red Cell Distribution Width 16.9(H) 11.0 - 16.0 % [facility] Platelet Count 199 160 - 400 X10*3/uL [facility] Mean Platelet Volume 11.2 9.4 - 12.4 fL [facility] Neutrophils Percent Auto 78.3(H) 45 - 73 % [facility] Imm Gran Pct Auto 0.5(H) 0.0 - 0.4 % [facility] Lymphocytes Percent Auto 11.9(L) 20 - 40 % [facility] Monocytes Percent Auto 8.6 2 - 11 % [facility] Eosinophils Percent Auto 0.5 0 - 4 % [facility] Basophils Percent Auto 0.2 0 - 2 % [facility] NRBC Pct Auto 0.0 0.0 - 0.2 /100WBC [facility] Neutrophils Absolute Auto 10.0(H) 2.0 - 8.3 x10*3/uL [facility] Imm Gran Abs Auto 0.06(H) 0.00 - 0.03 X10*3/uL [facility] Lymphocytes Absolute Auto 1.5 1.2 - 4.9 X10*3/uL [facility] Monocytes Absolute Auto 1.1 0.1 - 1.2 X10*3/uL [facility] Eosinophils Absolute Auto 0.1 0.0 - 0.4 X10*3/uL [facility] Basophils Absolute Auto 0.0 0.0 - 0.2 X10*3/uL [facility] NRBC Abs Auto 0.000 0.0 - 0.012 X10*3/uL [facility] 07/21/2025 10:3 7 AM EDT 07/21/2025 10:41 AM EDT us Generic External Data Provider LAB BLOOD ORDERAB LES Final Result [facility] [address] [place] [phone] [phone] documented in this encounter Visit Diagnoses Not on filedocumented in this encounter Additional Health Concerns Assessment Noted Time PHQ-9 Depression Total Score: 5 07/16/20 25 1:30 PM EDT documented as of this encounter Care Teams Health Technical Writer Relationship Specialty Start Date End Date Farrah Jackson DO [address] [place] [address] PCP - General Family Medicine 10/25/18 documented as of this encounter
--- OUTSIDE RECORDS SUMMARY | 2025-07-23 15:15 | XMS_ITS | Encounter Summary ---
Author Organization [employer] Address [address] [facility] [address] [address]t [place] [address] Care Team Providers Care Medieval English Literature Professor Name Role Phone Meagan Jacksonfer Primary Care Provider + [phone] Encounter Details Date Type Department Care Team ([facility] Contact Info) Description 07/23/2025 Orders Only GENERIC EXTERNAL DATA DEPARTMENT [...] Description 09/10/2025 1:00 PM EST Office Visit [facility] [address], [place] [phone] TarkaMarie, OD [address] [place] [address] documented as of this encounter Procedures Procedure Name Priority Date/Time Associated Diagnosis Comments HIGH SENSITIVITY TROPONIN I Routine 07/23/2025 2:19 PM EDT NT-PROBNP Routine 07/23/2025 2:19 PM EDT CBC WITH AUTO DIFFERENTIAL Routine 07/23/2025 2:19 PM EDT MAGNESIUM Routine 07/23/2025 2:19 PM EDT COMPREHENSIVE METABOLIC PANEL Routine 07/23/2025 2:19 PM EDT documented in this encounter Results * Magnesium (07/23/2025 2:19 PM EDT) Magnesium 1.9 1.6 - 2.6 mg/dL [facility] 07/23/2025 2:19 PM EDT 07/23/2025 2:21 PM EDT us Generic External Data Provider LAB BLOOD ORDERAB LES Final Result [facility] [address] [place] [address] [phone] * (ABNORMAL) Comprehensive Metabolic Panel (07/23/2025 2:19 PM EDT) Sodium 143 135 - 145 mmol/L [facility] Potassium 5.2(H) 3.3 - 5.1 mmol/L [facility] Comment:Slight Hemolysis.Int erpret result with caution. Chloride 107 96 - 108 mmol/L [facility] Carbon Dioxide 27 22 - 29 mmol/L [facility] Anion Gap 14 12 - 20 [facility] Urea Nitrogen (BUN) 18(H) 9 - 16 mg/dL [facility] Creatinine, Serum 0.77 0.5 - 1.4 mg/dL [facility] Creatinine Clr Calc Pharmacy 83.1 [facility] Comment:eGFR (calculated fro m the MDRD study equation) and eCrCl(calculated from the Cockcroft-Gault equation) are based ondifferent parameters and may not yield comparable results.If eCrCl result is absurd, please check patient'sheight/weight. Estimated Glomerular Filt Rate >60 [facility] Comment:Chronic Kidney Disea se: Estimated GFR < 60 mL/min/1.88p5Uahgod Kidney Disease: Estimated GFR < 15 mL/min/1.73m2 Glucose 88 60 - 115 mg/dL [facility] Calcium 9.9 8.4 - 10.2 mg/dL [facility] Bilirubin, Total 1.0 0.0 - 1.0 mg/dL [facility] Aspartate Amino Transferase 41(H) 5 - 37 U/L [facility] Comment:Slight Hemolysis.Int erpret result with caution. Alanine Aminotransferase 21 0 - 40 U/L [facility] Total Protein 7.7 6.5 - 8.0 g/dL [facility] Albumin Level 4.3 3.5 - 5.0 g/dL [facility] Alkaline Phosphatase 57 39 - 117 U/L [facility] 07/23/2025 2:19 PM EDT 07/23/2025 2:21 PM EDT Generic External Data Provider LAB BLOOD ORDERAB LES Final Result Performing Organization Address [facility]/ZIP Co de Phone Number [facility] [address] [place] [phone] * (ABNORMAL) NT-proBNP (07/23/2025 2:19 PM EDT) NT-proBNP 1,628.7(H ) <300 pg/mL [facility] Comment:Reference Range:Age Group (years) NT-proBNP (pg/ml) InterpretationAll <300 Negative: HF unlikelyFor patients presenting to the ED with clinical suspicion ofnew onset or worsening HF, see below:18 to <50 >299.9 to <450.0 Grayzone: [id number] to 75 >299.9 to <900.0 other causes of>75 >299.9 to <1800.0 NT-proBNP [id number] to <50 >449.9 Positive: HF [id number] >899.9>75 >1799.9Note: Elevated NT-proBNP levels should be interpreted inthe context of other clinical information. 07/23/2025 2:19 PM EDT 07/23/2025 2:21 PM EDT Generic External Data Provider LAB BLOOD ORDERAB LES Final Result Performing Organization Address [facility] Co de Phone Number [facility] [address] [place] [phone] * High Sensitivity Troponin I (07/23/2025 2:19 PM EDT) TROPONIN I HIGH SENSITIVITY 8.1 <3.5 - 35.0 ng/L [facility] Comment:The Cartwright high sens itivity Troponin-I results should beused in conjunction with other diagnostic information suchas ECG, clinical observations and information, and patientsymptoms to aid in the diagnosis of CO. 07/23/2025 2:19 PM EDT 07/23/2025 2:21 PM EDT us Generic External Data Provider LAB BLOOD ORDERAB LES Final Result [facility] [address] [place], [place] [phone] * (ABNORMAL) CBC auto differential (07/23/2025 2:19 PM EDT) White Blood Count 11.1(H) 4.8 - 10.8 X10*3/uL [facility] Red Blood Count 4.69 4.60 - 5.80 X10*6/uL [facility] Hemoglobin 13.7(L) 14.0 - 18.0 g/dl [facility] Hematocrit 42.1 42.0 - 52.0 % [facility] Mean Corpuscular Volume 89.8 80.0 - 98.0 fL [facility] Mean Corpuscular Hemoglobin 29.2 27.0 - 33.0 pg [facility] Mean Corpuscular HGB Conc 32.5 31.0 - 36.0 g/dl [facility] Red Cell Distribution Width 16.7(H) 11.0 - 16.0 % [facility] Platelet Count 195 160 - 400 X10*3/uL [facility] Mean Platelet Volume 10.7 9.4 - 12.4 fL [facility] Neutrophils Percent Auto 73.7(H) 45 - 73 % [facility] Imm Gran Pct Auto 0.5(H) 0.0 - 0.4 % [facility] Lymphocytes Percent Auto 15.2(L) 20 - 40 % [facility] Monocytes Percent Auto 9.6 2 - 11 % [facility] Eosinophils Percent Auto 0.6 0 - 4 % [facility] Basophils Percent Auto 0.4 0 - 2 % [facility] NRBC Pct Auto 0.0 0.0 - 0.2 /100WBC [facility] Neutrophils Absolute Auto 8.2 2.0 - 8.3 x10*3/uL [facility] Imm Gran Abs Auto 0.06(H) 0.00 - 0.03 X10*3/uL [facility] Lymphocytes Absolute Auto 1.7 1.2 - 4.9 X10*3/uL [facility] Monocytes Absolute Auto 1.1 0.1 - 1.2 X10*3/uL [facility] Eosinophils Absolute Auto 0.1 0.0 - 0.4 X10*3/uL [facility] Basophils Absolute Auto 0.1 0.0 - 0.2 X10*3/uL [facility] NRBC Abs Auto 0.000 0.0 - 0.012 X10*3/uL [facility] 07/23/2025 2:19 PM EDT 07/23/2025 2:21 PM EDT us Generic External Data Provider LAB BLOOD ORDERAB LES Final Result Performing Organization Address City/State/[facility] Co de Phone Number [facility] [address] [place] [phone] documented in this encounter Visit Diagnoses Not on filedocumented in this encounter Additional Health Concerns Assessment Noted Time PHQ-9 Depression Total Score: 5 07/16/20 25 1:30 PM EDT documented as of this encounter Care Teams Medieval English Literature Professor Relationship Specialty Start Date End Date Farrah Jackson DO [address] [place] [phone] PCP - General Family Medicine 10/25/18 documented as of this encounter
--- OUTSIDE RECORDS SUMMARY | 2025-07-23 15:15 | XMS_ITS | Encounter Summary ---
Author Organization [employer] Address [address] [place] [address] Care Team Providers Care Backhoe Operator Name Role Phone Farrah Jackson DO Primary Care Provider + [phone] Reason for Visit * Reason Onset Date Comments Nurse Triage 07/23/2025 Encounter Details Date Type Department Care Team ([facility] Contact Info) Description 07/23/2025 Telephone [facility] [address] [place], [place] [phone] Farrah Jackson DO [address] [place], [place] [phone] Nurse Triage Social History Tobacco Use Types [...] encounter Miscellaneous Notes * Telephone Encounter - Abiel Tony RN - 07/23/2025 11:33 AM EDT Assessment: Patient presents to Walk- In Center Patient arrived to the Red team for a nurse visit. Patient c/o Dizziness, Diarrhea, and Hypotensive that started today. Symptoms have been present for day. Symptoms are constant. Recent ED visit or hospitalization: Yes. VS as follows (if applicable): HR 71 regular rate and rhythm Resp 16 none BP 90/58 left Arm; Device: Automatic Cuff Size: regular O2 sat 100 % on room air Pain level: 0, Clear to auscultation bilaterally, Location: throughout Allergies[1] Current Medications[2] Patient Active Problem List Diagnosis Date Noted Hypomagnesemia 06/19/2024 Severe dental caries 05/30/2024 COPD (chronic obstructive pulmonary disease) ([facility]/HCC) 08/05/2023 MARVA (obstructive sleep apnea) 08/05/2023 Nonischemic cardiomyopathy ([facility]/HCC) 03/30/2023 AICD (automatic cardioverter/defibrillator) present 03/30/2023 BPH without urinary obstruction 01/08/2017 Chronic gastroesophageal reflux disease 01/08/2017 Hyperlipidemia 01/08/2017 Essential hypertension 01/08/2017 Microscopic hematuria 01/08/2017 Status post partial lobectomy of lung 01/08/2017 Fatty liver 01/08/2017 Type 2 diabetes mellitus (CMS/HCC) 01/08/2017 History of malignant carcinoid tumor 01/24/2013 Blood Glucose 150 Plan of care: Report to Dr. Cat Provider evaluation: Yes Patient to return to waiting in Room AFarhana Tony RN [1] Allergies Allergen Reactions Oxycodone Other Reaction(s): vomiting, delusions Metformin Other reaction(s): Other (See Comments) Dehydration [2] Current Outpatient Medications Medication Sig Dispense Refill acetaminophen (Tylenol 8 Hour) 650 MG ER tablet Take 1 tablet (650 mg) by mouth every 8 (eight) hours if needed for mild pain. 40 tablet 1 albuterol (Ventolin HFA) 108 (90 Base) MCG/ACT inhaler Inhale 2 puffs every 4 (four) hours if needed for wheezing. 54 g 1 amoxicillin-clavulanate (Augmentin) 875-125 MG tablet Take 1 tablet by mouth 2 times daily. 14 tablet 0 atorvastatin (Lipitor) 80 MG tablet TAKE 1 TABLET BY MOUTH AT BEDTIME 90 tablet 1 atorvastatin (Lipitor) 80 MG tablet TAKE 1 TABLET BY MOUTH AT BEDTIME 90 tablet 1 baclofen (Lioresal) 10 MG tablet Take 1 tablet (10 mg) by mouth if needed in the morning, at noon, and at bedtime for muscle spasms. 60 tablet 1 Blood Glucose Monitoring Suppl (FreeStyle Lite) w/Device kit 1 each 2 times daily. 1 kit 0 carvedilol (Coreg) 12.5 MG tablet TAKE 1 AND 1/2 TABLETS BY MOUTH TWICE DAILY IN THE MORNING AND INTHE EVENING WITH FOOD 90 tablet 1 clonazePAM (KlonoPIN) 0.5 MG tablet Take 1 tablet (0.5 mg) by mouth if needed each day for anxiety for up to 7 days. 7 tablet 0 Diclofenac Sodium 1 % gel Apply 2 g topically if needed in the morning, at noon, in the evening, and at bedtime (pain). 150 g 3 Entresto 49-51 MG tablet Take 1 tablet by mouth 2 times daily. Farxiga 10 MG Take 10 mg by mouth in the morning. FREESTYLE LITE test strip USE DIRECTED TO TEST BLOOD SUGAR TWICE DAILY 100 strip 8 furosemide (Lasix) 20 MG tablet Take 20 mg by mouth in the morning. gabapentin (Neurontin) 300 MG capsule TAKE 1 CAPSULE BY MOUTH AT BEDTIME 30 capsule 3 meloxicam (Mobic) 7.5 MG tablet Take 7.5 mg by mouth Once per day. metFORMIN (Glucophage) 500 MG tablet TAKE 2 TABLETS BY MOUTH TWICE DAILY IN THE MORNING AND EVENINGWITH MEALS 360 tablet 3 omega-3 1000 MG capsule capsule TAKE 1 CAPSULE BY MOUTH TWICE A DAY*NC* 180 capsule 3 sertraline (Zoloft) 25 MG tablet TAKE 1 TABLET BY MOUTH EVERY MORNING 30 tablet 2 Spacer/Aero-Holding Chambers (OptiChamber Deedee) misc 1 each every 4 (four) hours if needed (asthma). 1 each 0 spironolactone (Aldactone) 25 MG tablet Take 25 mg by mouth in the morning. TRUEplus Lancets 33G [facility] USE TO TEST BLOOD SUGAR TWICE DAILY 100 each 5 No current facility-administered medications for this visit. documented in this encounter Plan of Treatment Upcoming Encounters Date Type Department Care Team (Late st Contact Info) Description 09/10/2025 1:00 PM EST Office Visit [facility] [address] [place], [place] [phone] TarkaMarie, OD [address] [place] [address] documented as of this encounter Visit Diagnoses Not on filedocumented in this encounter Additional Health Concerns Assessment Noted Time PHQ-9 Depression Total Score: 5 07/16/20 25 1:30 PM EDT documented as of this encounter Care Teams Backhoe Operator Relationship Specialty Start Date End Date Farrah Jackson DO [address] [place] [address] PCP - General Family Medicine 10/25/18 documented as of this encounter
--- OUTSIDE RECORDS SUMMARY | 2025-07-23 15:15 | XMS_ITS | Encounter Summary ---
Author Organization [employer] Address [address] [place] [address] Care Team Providers Care Metal Cnc Operator Name Role Phone Farrah Jackson DO Primary Care Provider + [phone] Encounter Details Date Type Department Care Team (Late Contact Info) Description 01/15/2023 Orders Only [facility] [address] [place], [place] [phone] Farrah Baird LPN Social History Tobacco Use [...] Description 09/10/2025 1:00 PM EST Office Visit [facility] [address] [place] [address] Marie Zhao, OD [address] [place] [address] documented as of this encounter Visit Diagnoses Not on filedocumented in this encounter Care Teams Metal Cnc Operator Relationship Specialty Start Date End Date Farrah Jackson DO [address] [place] [address] PCP - General Family Medicine 10/25/18 documented as of this encounter
--- OUTSIDE RECORDS SUMMARY | 2025-07-23 15:15 | XMS_ITS | Encounter Summary ---
Author Organization [employer] Address [address] [place] [address] Care Team Providers Care Cancer Program Coordinator Name Role Phone KrissyFarrah knight Primary Care Provider + [phone] Encounter Details Date Type Department Care Team (Latest Contact Info) Description 07/23/2025 Travel Social History Tobacco Use Types Packs/Day [...] Description 09/10/2025 1:00 PM EST Office Visit [facility] [address] [place], [place] [phone] Marie Zhao, OD [address] [place] [address] documented as of this encounter Visit Diagnoses Not on filedocumented in this encounter Additional Health Concerns Assessment Noted Time PHQ-9 Depression Total Score: 5 07/16/20 25 1:30 PM EDT documented as of this encounter Care Teams Cancer Program Coordinator Relationship Specialty Start Date End Date Farrah Jackson DO [address] [place] [address] PCP - General Family Medicine 10/25/18 documented as of this encounter
--- OUTSIDE RECORDS SUMMARY | 2025-07-23 15:15 | XMS_ITS | Encounter Summary ---
Author Organization [employer] Address [address] [facility] 7t [place] [address] Care Team Providers Care Income Tax Preparer Name Role Phone Farrah Jackson DO Primary Care Provider + [phone] Reason for Visit * Reason Onset Date Comments Nurse Triage 12/28/2023 Encounter Details Date Type Department Care Team ([facility] st Contact Info) Description 12/28/2023 Telephone [facility] [address] [place], [place] [phone] Farrah Jackson DO [address] [place], [place] [phone] Nurse Triage Social History Tobacco Use Types [...] for UTI. Pt is advised to come [facility] for provider to see Pt. Pt insurance is not active at this time and Pt is waiting for medicare to start. Advised to stop at front desk attendant to speak about insurance before going to [facility] . Pt agreed with disposition and [...] accepted this outcome Please contact pt at [phone] documented in this encounter Plan of Treatment Upcoming Encounters Date Type Department Care Team ([facility] Contact Info) Description 09/10/2025 1:00 PM EST Office Visit [facility] [address] [place], [place] [phone] Marie Zhao, ANGIE [address] [place] [address] documented as of this encounter Visit Diagnoses Not on filedocumented in this encounter Care Teams Income Tax Preparer Relationship Specialty Start Date End Date Farrah Jackson DO [address] [place] [phone] PCP - General Family Medicine 10/25/18 documented as of this encounter
--- OUTSIDE RECORDS SUMMARY | 2025-07-23 15:16 | XMS_ITS | Encounter Summary ---
Author Organization [employer] Address [address] [place] [address] Care Team Providers Care Fish Hatchery Supervisor Name Role Phone Farrah Jackson DO Primary Care Provider + [phone] Reason for Visit * Reason Comments Med Refill Encounter Details Date Type Department Care Team ([facility] Contact Info) Description 11/14/2023 Refill [facility] [address] [place], [place] [phone] Farrah Jackson DO [address] [place], [place] [phone] Social History Tobacco Use Types Packs/Day Years [...] Description 09/10/2025 1:00 PM EST Office Visit [facility] [address] [place], [place] [phone] Marie Zhao, OD [address] [place] [address] documented as of this encounter Visit Diagnoses Not on filedocumented in this encounter Care Teams Fish Hatchery Supervisor Relationship Specialty Start Date End Date Farrah Jackson DO [address] [place] [address] PCP - General Family Medicine 10/25/18 documented as of this encounter
--- OUTSIDE RECORDS SUMMARY | 2025-07-23 15:16 | XMS_ITS | Encounter Summary ---
Author Organization [employer] Address [address] [place] [address] Care Team Providers Care Felt Hat Flanging Operator Name Role Phone Farrah Jackson DO Primary Care Provider + [phone] Reason for Visit * Reason Comments Med Refill Encounter Details Date Type Department Care Team ([facility] Contact Info) Description 07/10/2024 Refill [facility] [address] [place], [place] [phone] Farrah Jackson DO [address] [place], [place] [phone] Social History Tobacco Use Types Packs/Day Years [...] Description 09/10/2025 1:00 PM EST Office Visit [facility] [address] [place] [address] Marie Zhao, OD [address] [place] [address] documented as of this encounter Visit Diagnoses Not on filedocumented in this encounter Additional Health Concerns Assessment Noted Time PHQ-9 Depression Total Score: 2 04/21/20 24 8:50 AM EDT documented as of this encounter Care Teams Felt Hat Flanging Operator Relationship Specialty Start Date End Date Farrah Jackson DO [address] [place] [address] PCP - General Family Medicine 10/25/18 documented as of this encounter
--- OUTSIDE RECORDS SUMMARY | 2025-07-23 15:16 | XMS_ITS | Encounter Summary ---
Author Organization [employer] Address [address] [place] [address] Care Team Providers Care Form Press Operator Name Role Phone Meagan Jacksonfer Primary Care Provider + [phone] Reason for Visit * Reason Comments Med Refill Encounter Details Date Type Department Care Team ([facility] Contact Info) Description 01/11/2025 Refill [facility] [address] [place], [place] [phone] Alexsandra Luevano MD [address] [place], [place] [phone] Primary hypertension Social History Tobacco Use Types [...] Description 09/10/2025 1:00 PM EST Office Visit [facility] [address] [place] [address] Marie Zhao, OD [address] [place] [address] documented as of this encounter Visit Diagnoses Diagnosis Primary hypertension Unspecified essential hypertension documented in this encounter Additional Health Concerns Assessment Noted Time PHQ-9 Depression Total Score: 2 04/21/20 24 8:50 AM EDT documented as of this encounter Care Teams Form Press Operator Relationship Specialty Start Date End Date Farrah Jackson DO [address] [place] [address] PCP - General Family Medicine 10/25/18 documented as of this encounter
[2025-07-23 15:48] VITALS: BP 113/66; BP 116/73; PULSE 65; PULSE 70
[2025-07-23 15:49] VITALS: BP 120/73; PULSE 67
[2025-07-23 15:50] VITALS: BP 120/73; PULSE 70; RESP 18; TEMP 36.5; O2SAT 98
[2025-07-23 16:30] VITALS: BP 120/73; PULSE 70; RESP 18; TEMP 36.5; O2SAT 98
== END 2025-07-23 16:30 | disposition home or self-care (01) ==
PROVIDERS: Emergency Medicine; Physician Assistant Medical; Emergency Provider Student in an Organized Health Care Education/Training Program; PCP Family Medicine
DX: R11.2 Nausea with vomiting, unspecified (principal); R19.7 Diarrhea, unspecified; I51.7 Cardiomegaly; Z79.899 Other long term (current) drug therapy; Z95.0 Presence of cardiac pacemaker
CPT/HCPCS: 36415; 71045; 80053; 83735; 83880; 84484; 85025; 96360; 96361; 99284

== ENCOUNTER → 2025-07-23 15:05 | Outpatient (BNV) | payer OTHER, SELFPAY | PROVIDERS: Emergency Provider Emergency Medicine; PCP Family Medicine; Visit Provider Radiology Diagnostic Radiology | DX: I51.7 Cardiomegaly (principal) | CPT/HCPCS: 71045 ==

== ENCOUNTER → 2025-07-26 23:59 | Outpatient (BNV) | payer OTHER, SELFPAY ==
--- NOTE | 2025-07-31 13:33 | A.OFFVIS_ITS ---
Intake Visit Reasons: Remote HF monitoring- [employer] Allergies oxycodone Adverse Reaction (Intermediate, Verified 07/23/25 13:30) vomiting, delusions PFSH Medical History Pacemaker Gout Evatr-1-xedpbffuxdx deficiency Encounter for discussion regarding implantable cardioverter-defibrillator Cardiomyopathy COPD (chronic obstructive pulmonary disease) Essential hypertension PVC (premature ventricular contraction) MARVA (obstructive sleep apnea) Carcinoid tumor High cholesterol Prostate enlargement Diabetes Surgical History History of surgical procedure (~2022) History of prostate surgery Hx of colonoscopy History of bronchoscopy History of lobectomy of lung Family History Son No problems noted. Father No problems noted. 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 [id number] Cardiac Device Interrogation, cardio physiologic monitor Procedure code (CPT) selection complete Assessment & Plan Assessment & Plan (1) S/P ICD (internal cardiac defibrillator) procedure: Code(s): Z95.810 - Presence of automatic (implantable) cardiac defibrillator Category: Surgical (2) NICM (nonischemic cardiomyopathy): Code(s): I42.8 - Other cardiomyopathies Category: Medical (3) CHF exacerbation: Code(s): I50.9 - Heart failure, unspecified Category: Medical Plan x Coding Level of Care Code Procedure Only Diagnoses S/P ICD (internal cardiac defibrillator) procedure Z95.810 NICM (nonischemic cardiomyopathy) I42.8 CHF exacerbation I50.9 CPT Codes Cardiac Device Check - Cardiac Device 15: [id number] Cardiac Device Interrogation, cardio physiologic monitor ([id number])
== END ==
PROVIDERS: PCP Family Medicine; Visit Provider Internal Medicine
DX: I42.8 Other cardiomyopathies (principal); I50.9 Heart failure, unspecified; Z95.810 Presence of automatic (implantable) cardiac defibrillator
CPT/HCPCS: 93297

== ENCOUNTER → 2025-07-26 23:59 | Outpatient (BNV) | payer OTHER, SELFPAY ==
--- NOTE | 2025-08-02 12:19 | A.OFFVIS_ITS ---
Intake Visit Reasons: Remote Device check-[employer] Allergies oxycodone Adverse Reaction (Intermediate, Verified 07/23/25 13:30) vomiting, delusions PFSH Medical History Pacemaker Gout Grkcd-8-twwqefiurcf deficiency Encounter for discussion regarding implantable cardioverter-defibrillator Cardiomyopathy COPD (chronic obstructive pulmonary disease) Essential hypertension PVC (premature ventricular contraction) MARVA (obstructive sleep apnea) Carcinoid tumor High cholesterol Prostate enlargement Diabetes Surgical History History of surgical procedure (~2022) History of prostate surgery Hx of colonoscopy History of bronchoscopy History of lobectomy of lung Family History Son No problems noted. Father No problems noted. 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 [id number] Cardiac Interrogation, implant defibrillator w/interim Procedure code (CPT) selection complete Assessment & Plan Assessment & Plan (1) S/P ICD (internal cardiac defibrillator) procedure: Code(s): Z95.810 - Presence of automatic (implantable) cardiac defibrillator Category: Surgical (2) NICM (nonischemic cardiomyopathy): Code(s): I42.8 - Other cardiomyopathies Category: Medical Plan x Coding Level of Care Code Procedure Only Diagnoses S/P ICD (internal cardiac defibrillator) procedure Z95.810 NICM (nonischemic cardiomyopathy) I42.8 CPT Codes Cardiac Device Check - Cardiac Device 13: [id number] Cardiac Interrogation, implant defibrillator w/interim ([id number])
== END ==
PROVIDERS: PCP Family Medicine; Visit Provider Internal Medicine
DX: I42.8 Other cardiomyopathies (principal); Z95.810 Presence of automatic (implantable) cardiac defibrillator
CPT/HCPCS: 93295

== ENCOUNTER → 2025-08-25 23:59 | Outpatient (BNV) | payer OTHER, SELFPAY ==
--- NOTE | 2025-08-29 11:14 | MHC.OFFVIS ---
Intake Visit Reasons: Remote HF monitoring- [employer] Allergies oxycodone Adverse Reaction (Intermediate, Verified 07/23/25 13:30) vomiting, delusions PFSH Medical History Pacemaker Gout Jfriy-7-isdewrmoqzr deficiency Encounter for discussion regarding implantable cardioverter-defibrillator Cardiomyopathy COPD (chronic obstructive pulmonary disease) Essential hypertension PVC (premature ventricular contraction) MARVA (obstructive sleep apnea) Carcinoid tumor High cholesterol Prostate enlargement Diabetes Surgical History History of surgical procedure (~2022) History of prostate surgery Hx of colonoscopy History of bronchoscopy History of lobectomy of lung Family History Son No problems noted. Father No problems noted. 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 [id number] Cardiac Device Interrogation, cardio physiologic monitor Procedure code (CPT) selection complete Assessment & Plan Assessment & Plan (1) NICM (nonischemic cardiomyopathy): Code(s): I42.8 - Other cardiomyopathies Category: Medical (2) S/P ICD (internal cardiac defibrillator) procedure: Code(s): Z95.810 - Presence of automatic (implantable) cardiac defibrillator Category: Surgical Plan x Coding Level of Care Code Procedure Only Diagnoses NICM (nonischemic cardiomyopathy) I42.8 S/P ICD (internal cardiac defibrillator) procedure Z95.810 CPT Codes Cardiac Device Check - Cardiac Device 15: [id number] Cardiac Device Interrogation, cardio physiologic monitor ([id number])
== END ==
PROVIDERS: PCP Family Medicine; Visit Provider Internal Medicine
DX: I42.8 Other cardiomyopathies (principal); Z95.810 Presence of automatic (implantable) cardiac defibrillator
CPT/HCPCS: 93297

== ENCOUNTER 2025-09-06 10:43 | Outpatient (REF) | payer OTHER, SELFPAY ==
--- NOTE | 2025-09-06 10:45 | PFT_ITS ---
Indication bronchitis Spirometry FEV1 to FVC 78%; FEV1 2.45 L; FVC 3.14 L. No significant response to bronchodilators noted. Lung Volumes Total lung capacity 78% predicted; residual volume 88% predicted Diffusion Capacity DLCO 59% predicted Comparisons None Interpretation No obstructive ventilatory defects. No significant response to bronchodilators noted. The patient does appear to have a restrictive ventilatory defect consistent with mild restrictive lung disease. In addition to that the patient does have a vdyi-fr-pvaudqmd diffusion impairment. Clinical correlation warranted. MTDD
[2025-09-06 11:28] VITALS: PULSE 66
--- OUTSIDE RECORDS SUMMARY | 2025-09-06 13:10 | XMS_ITS | Encounter Summary ---
Author Organization [employer] Address [address] [place] [address] Care Team Providers Care Crts Name Role Phone Farrah Jackson DO Primary Care Provider + [phone] Encounter Details Date Type Department Care Team (Late Contact Info) Description 01/15/2023 Orders Only [facility] [address] [place], [place] [id number] Farrah Baird LPN Social History Tobacco Use [...] Description 09/10/2025 1:00 PM EST Office Visit [facility] OPT[facility] [address] [place] [address] Marie Zhao, OD [address] [place] [address] documented as of this encounter Visit Diagnoses Not on filedocumented in this encounter Care Teams Crts Relationship Specialty Start Date End Date Farrah Jackson DO [address] [place] [id number] PCP - General Family Medicine 10/25/18 documented as of this encounter
--- OUTSIDE RECORDS SUMMARY | 2025-09-06 13:10 | XMS_ITS | Encounter Summary ---
Author Organization [email or web address] Address [address] [place] [address] Care Team Providers Care Manager Field Name Role Phone Farrah Jackson DO Primary Care Provider + [phone] Reason for Visit * Reason Onset Date Comments pain medication to pharmacy 05/22/2024 Encounter Details Date Type Department Care Team ([facility] st Contact Info) Description 05/22/2024 Telephone [facility] [address] [place] [address] Farhad Knott, DMD [address] [place] [address] pain medication to pharmacy Social History Tobacco [...] EST Office Visit [facility] OPTOMETRY [address] [place] [address] Marie Zhao, OD [address] [place] [address] documented as of this encounter Visit Diagnoses Not on filedocumented in this encounter Additional Health Concerns Assessment Noted Time PHQ-9 Depression Total Score: 2 04/21/20 24 8:50 AM EDT documented as of this encounter Care Teams Manager Field Relationship Specialty Start Date End Date Farrah Jackson DO [address] [place] [id number] PCP - General Family Medicine 10/25/18 documented as of this encounter
--- OUTSIDE RECORDS SUMMARY | 2025-09-06 13:10 | XMS_ITS | Clinical Summary ---
Author Organization [facility] Address [address] [address] Phone Care Team Providers Care Mechanical Systems Design Engineer Name Role Phone KrissyFarrah knight Primary Care Provider [phone] Allergies Active Allergy Reactions Criticality Noted Date [...] on file Insurance GENERIC COMMERCIAL [place] NGOZI [id number] GENERIC COMMERCIAL MD NGOZI [id number] GENERIC COMMERCIAL MD NGOZI [id number] GENERIC COMMERCIAL MD NGOZI [id number] GENERIC COMMERCIAL MD NGOZI [id number] GENERIC COMMERCIAL MD NGOZI [id number] GENERIC COMMERCIAL MD NGOZI [id number] GENERIC COMMERCIAL GENERIC COMMERCIAL Care Teams Mechanical Systems Design Engineer Relationship Specialty Start Date End Date Farrah Jackson DO [address] [place] [address] PCP - General Family Medicine 01/06/19 Additional Source Comments The information contained in this document represents components of the legal health record. It is not the complete legal health record.[facility]
--- OUTSIDE RECORDS SUMMARY | 2025-09-06 13:10 | XMS_ITS | Clinical Summary ---
Author Organization [employer] Address [address] [facility] [facility] [address] [place] [address] Care Team Providers Care Operations Recruiter Name Role Phone Farrah Jackson DO Primary Care Provider [phone] Allergies Active Allergy Reactions Criticality Noted Date [...] MEALS 360 tablet 3 11/10/19 25 Active amoxicillin-cla vulanate (Augmentin) 875-125 MG tablet Take 1 tablet by mouth 2 times daily. 14 tablet 01/23/20 25 Active Spacer/Aero-Hol ding Chambers (OptiChamber Deedee) misc 1 each every 4 (four) hours if needed (asthma). 1 each 01/23/20 25 Active albuterol (Ventolin HFA) 108 (90 Base) MCG/ACT inhaler Inhale 2 puffs every 4 (four) hours if needed for wheezing. 54 g 1 01/23/20 25 026 Active FREESTYLE LITE test stripIndication s:Type 2 diabetes mellitus with microalbuminuri a, without long-term current use of insulin (HCC) USE DIRECTED TO TEST BLOOD SUGAR TWICE DAILY 100 strip 8 02/02/20 25 Active gabapentin (Neurontin) 300 MG capsule TAKE 1 CAPSULE BY MOUTH AT BEDTIME 30 capsule 3 05/31/20 25 Active TRUEplus Lancets 33G miscIndications :Type 2 diabetes mellitus with microalbuminuri a, without long-term current use of insulin (HCC) USE TO TEST BLOOD SUGAR TWICE DAILY 100 each 5 07/13/20 25 Active carvedilol (Coreg) 12.5 MG tabletIndicatio ns:Primary hypertension TAKE 1 AND 1/2 TABLETS BY MOUTH TWICE DAILY IN THE MORNING AND IN THE EVENING WITH FOOD 90 tablet 1 08/09/20 25 Active sertraline (Zoloft) 25 MG tablet TAKE 1 TABLET BY MOUTH EVERY MORNING 30 tablet 2 08/09/20 25 Active atorvastatin (Lipitor) 80 MG tablet TAKE 1 TABLET BY MOUTH AT BEDTIME 90 tablet 1 08/22/20 Active atorvastatin (Lipitor) 80 MG tablet TAKE 1 TABLET BY MOUTH AT BEDTIME 90 tablet 1 03/08/20 25 025 Discontinued sertraline (Zoloft) 25 MG tablet TAKE 1 TABLET BY MOUTH EVERY MORNING 30 tablet 2 05/01/20 25 025 Discontinued(Re order (will not trigger notification to Pharmacy)) carvedilol (Coreg) 12.5 MG tabletIndicatio ns:Primary hypertension TAKE 1 AND 1/2 TABLETS BY MOUTH TWICE DAILY IN THE MORNING AND IN THE EVENING WITH FOOD 90 tablet 1 05/31/20 025 Discontinued Active Problems Problem Noted Date [...] Encounters Date Type Department Care Team Description 08/22/2025 Refill [facility] [place] [address] Farrah Jackson DO 08/09/2025 Refill [facility] [place] [address] Farrah Jackson DO 08/09/2025 Refill [facility] [address] Deni Diallo MD Primary hypertension 07/26/2025 Telephone [facility] [address] Farrah Jackson DO ER Follow-up 07/23/2025 12:00 PM EDT Office Visit [facility] [place] [address] Farrah Jackson DO Chronic diarrhea (Primary Dx) 07/23/2025 Orders Only GENERIC EXTERNAL DATA DEPARTMENT Provider, Generic External Data 07/23/2025 Telephone [facility] [place] [address] Farrah Jackson DO Nurse Triage 07/23/2025 Travel 07/21/2025 Orders Only GENERIC EXTERNAL DATA DEPARTMENT Provider, Generic External Data 07/16/2025 12:00 PM EDT Office Visit [facility] [place] [address] Farrah Jackson DO Unintentional weight loss (Primary Dx); Forgetfulness; History of tobacco use; Type 2 diabetes mellitus with microalbuminuria, without long-term current use of insulin ([facility]); Encounter for immunization 07/16/2025 Telephone [facility] [address] Farrah Jackson DO Durable Medical Equipment (DME prescription Ensure(CCA).) 07/16/2025 Travel 07/13/2025 Telephone [facility] [place] [address] Farrah Jackson DO CHART PREP 07/13/2025 Refill [facility] [place] [address] Farrah Jackson DO Type 2 diabetes mellitus with microalbuminuria, without long-term current use of insulin (CMS/HCC) 06/22/2025 Patient Outreach [address] [address] Farrah Jackson DO Transition Of Care (Tcm) (HDF- patient denied ) 06/20/2025 Orders Only GENERIC EXTERNAL DATA DEPARTMENT Provider, Generic External Data 06/08/2025 11:30 AM EDT Office Visit [address] [address] Farrah Jackson DO Type 2 diabetes mellitus with microalbuminuria, without long-term current use of insulin (CMS/HCC) (Primary Dx); Essential hypertension; Other hyperlipidemia; Fatty liver; Nonischemic cardiomyopathy (CMS/HCC); Anxiety; BPH without urinary obstruction; Sleep disorder breathing; Unintentional weight loss; Healthcare maintenance 06/08/2025 Travel 06/07/[address] [address] Farrah Jackson DO chart prep from Last 3 Months Immunizations Immunization Administration [...] Description 09/10/2025 1:00 PM EST Office Visit [facility] OPTOMETRY [address] [place], [place] [phone] Marie Zhao, OD [address] [place] [address] Health Maintenance Due Date Last Done Comments CT Colonography 1958 Colonoscopy 1958 Dental Oral Exam 1958 Dental Prophylaxis 1958 Dental X-Ray: Bitewings 1958 FIT 1958 Sigmoidoscopy 1958 Diabetes: Foot Exam 1968 Eye Exam 1968 Hepatitis A Vaccines (2 of 2 - Risk 2-dose series) 08/20/2006 02/18/2006 RSV Patients and Patients Aged 60 years or older (1 - Risk 50-74 years 1-dose series) 2008 Dental X-Ray: Full Mouth 10/29/2013 10/28/2010 Hepatitis B Vaccines (3 of 3 - Risk 3-dose series) 09/14/2015 04/09/2015, 03/14/2015 FOBT 08/26/2024 08/26/2023 COVID-19 Vaccine ( season) [...] Priority Date/Time Associated Diagnosis Comments XR CHEST 1 VIEW Routine 07/23/2025 3:21 PM EDT MAGNESIUM Routine 07/23/2025 2:19 PM [...] microalbuminuria, without long-term current use of insulin (CMS/[facility]) XR CHEST 2 VIEWS Routine [...] microalbuminuria, without long-term current use of insulin ([facility]) POCT GLUCOSE Routine 06/08/2025 11:30 AM EDT Type 2 diabetes mellitus with microalbuminuria, without long-term current use of insulin (CMS/[facility]) LAB COLOGUARD COLON CANCER SCREEN Routine 08/26/2023 12:36 PM EDT Healthcare maintenance PANORAMIC RADIOGRAPHIC IMAGE Routine 10/28/2010 12:00 AM EST from Last 3 Months or Most Recently Relevant to Health Maintenance Results * XR Chest 1 View (07/23/2025 3:21 PM EDT) Anatomical Region Laterality Modality Chest Radiographic Dasia ging 07/23/2025 3:21 PM EDT Narrative 07/23/2025 3:38 PM EDT [address] [address] XRay Report Signed Patient: Sonny Curiel MR#: [id number] : 1960 Acct:[id number] Age/Sex: 64 / M ADM Date: 07/23/25 Loc: .ED Attending Dr: Ordering Physician: Tamiko Luna MD Date of Service: 07/23/25 Procedure(s): XR chest 1V Accession Number(s): [id number] cc: Tamiko Luna MD; Farrah Jackson DO Reason for Exam: chf? EXAMINATION: XR CHEST 1 VIEW HISTORY: CHF? COMPARISON: Comparison is made with the prior examination dated 06/20/2025. FINDINGS: A single AP portable view of the chest performed at 3:22 PM is submitted. A left-sided unipolar pacemaker is unchanged in position. There are postsurgical changes in the left upper lung zone. No focal airspace opacity is seen. There is no pleural effusion, pneumothorax, or pulmonary vascular congestion. The heart remains enlarged. There is degenerative disc disease of the spine. XR/XR chest 1V IMPRESSION: Cardiomegaly. No acute cardiopulmonary abnormality. Electronically signed by: Nehemiah Bates MD 07/23/2025 03:35 PM EDT RP Dictated By: Nehemiah Bates MD Signed By: <Electronically signed by Nehemiah Bates MD in OV> 07/23/25 1535 DD/ 1521 TD/TT: 07/23/25 1530 Nut Sheller Machine Operator: Procedure Note Donotuseinterpreter, Image - 07/23/[address] [address] XRay Report Signed Patient: Emily Curiel#: [id number] : 9Acct:[id number] Age/Sex: 64 / MADM Date: 07/23/25 Loc: .ED Attending Dr: Ordering Physician: Tamiko Luna MD Date of Service: 07/23/25 Procedure(s): XR chest 1V Accession Number(s): [id number] cc: Tamiko Luna MD; Farrah Jackson DO Reason for Exam: chf? EXAMINATION: XR CHEST 1 VIEW HISTORY: CHF? COMPARISON: Comparison is made with the prior examination dated 06/20/2025. FINDINGS: A single AP portable view of the chest performed at 3:22 PM is submitted. A left-sided unipolar pacemaker is unchanged in position. There are postsurgical changes in the left upper lung zone. No focal airspace opacity is seen. There is no pleural effusion, pneumothorax, or pulmonary vascular congestion. The heart remains enlarged. There is degenerative disc disease of the spine. XR/XR chest 1V IMPRESSION: Cardiomegaly. No acute cardiopulmonary abnormality. Electronically signed by: Nehemiah Bates MD 07/23/2025 03:35 PM EDT Dictated By: Nehemiah Bates MD Signed By: <Electronically signed by Nehemiah Bates MD in OV> 07/23/25 1535 DD/ 1521 TD/TT: 07/23/25 1530 Nut Sheller Machine Operator: [facility] External Provider IMG XR PROCEDURES Final Result * High Sensitivity Troponin I (07/23/2025 2:19 PM EDT) Only the most recent of3 resultswithin the time period is included. TROPONIN I HIGH SENSITIVITY 8.1 <3.5 - 35.0 ng/L [facility] Comment:The [place] high sens itivity Troponin-I results should beused in conjunction with other diagnostic information suchas ECG, clinical observations and information, and patientsymptoms to aid in the diagnosis of RI. 07/23/2025 2:19 PM EDT 07/23/2025 2:21 PM EDT Generic External Data Provider LAB BLOOD ORDERAB LES Final Result Performing Organization Address [facility] Co de Phone Number [facility] [address] [place] [phone] * (ABNORMAL) NT-proBNP (07/23/2025 2:19 PM EDT) Pathologist [facility] NT-proBNP 1,628.7(H ) <300 pg/mL [facility] Comment:Reference Range:Age Group (years) NT-proBNP (pg/ml) InterpretationAll <300 Negative: HF unlikelyFor patients presenting to the ED with clinical suspicion ofnew onset or worsening HF, see below:18 to <50 >299.9 to <450.0 Grayzone: [id number] to 75 >299.9 to <900.0 other causes of>75 >299.9 to <1800.0 NT-proBNP bfsjduipl38 to <50 >449.9 Positive: HF [id number] >899.9>75 >1799.9Note: Elevated NT-proBNP levels should be interpreted inthe context of other clinical information. 07/23/2025 2:19 PM EDT 07/23/2025 2:21 PM EDT Generic External Data Provider LAB BLOOD ORDERAB LES Final Result Performing Organization Address [facility] Co de Phone Number [facility] [address] [place] [phone] * (ABNORMAL) CBC auto differential (07/23/2025 2:19 PM EDT) Only the most recent of4 resultswithin the time period is included. Pathologist [facility] White Blood Count 11.1(H) 4.8 - 10.8 X10*3/uL [facility] Red Blood Count 4.69 4.60 - 5.80 X10*6/uL [facility] Hemoglobin 13.7(L) 14.0 - 18.0 g/dl [facility] Hematocrit 42.1 42.0 - 52.0 % [facility] Mean Corpuscular Volume 89.8 80.0 - 98.0 fL [facility] Mean Corpuscular Hemoglobin 29.2 27.0 - 33.0 pg [facility] Mean Corpuscular HGB Conc 32.5 31.0 - 36.0 g/dl [facility] Red Cell Distribution Width 16.7(H) 11.0 - 16.0 % [facility] Platelet Count 195 160 - 400 X10*3/uL [facility] Mean Platelet Volume 10.7 9.4 - 12.4 fL [facility] Neutrophils Percent Auto 73.7(H) 45 - 73 % [facility] Imm Gran Pct Auto 0.5(H) 0.0 - 0.4 % [facility] Lymphocytes Percent Auto 15.2(L) 20 - 40 % [facility] Monocytes Percent Auto 9.6 2 - 11 % [facility] Eosinophils Percent Auto 0.6 0 - 4 % [facility] Basophils Percent Auto 0.4 0 - 2 % [facility] NRBC Pct Auto 0.0 0.0 - 0.2 /100WBC [facility] Neutrophils Absolute Auto 8.2 2.0 - 8.3 x10*3/uL [facility] Imm Gran Abs Auto 0.06(H) 0.00 - 0.03 X10*3/uL [facility] Lymphocytes Absolute Auto 1.7 1.2 - 4.9 X10*3/uL [facility] Monocytes Absolute Auto 1.1 0.1 - 1.2 X10*3/uL [facility] Eosinophils Absolute Auto 0.1 0.0 - 0.4 X10*3/uL [facility] Basophils Absolute Auto 0.1 0.0 - 0.2 X10*3/uL [facility] NRBC Abs Auto 0.000 0.0 - 0.012 X10*3/uL [facility] 07/23/2025 2:19 PM EDT 07/23/2025 2:21 PM EDT us Generic External Data Provider LAB BLOOD ORDERAB LES Final Result Performing Organization Address City/[facility]/ZIP Co de Phone Number [facility] [address] [place] [phone] * Magnesium (07/23/2025 2:19 PM EDT) Magnesium 1.9 1.6 - 2.6 mg/dL [facility] 07/23/2025 2:19 PM EDT 07/23/2025 2:21 PM EDT Generic External Data Provider LAB BLOOD ORDERAB LES Final Result Performing Organization Address [facility] Co de Phone Number [facility] [address] [place] [phone] * (ABNORMAL) Comprehensive Metabolic Panel (07/23/2025 2:19 PM EDT) Only the most recent of3 resultswithin the time period is included. Sodium 143 135 - 145 mmol/L [facility] Potassium 5.2(H) 3.3 - 5.1 mmol/L [facility] Comment:Slight Hemolysis.Int erpret result with caution. Chloride 107 96 - 108 mmol/L [facility] Carbon Dioxide 27 22 - 29 mmol/L [facility] Anion Gap 14 12 - 20 [facility] Urea Nitrogen (BUN) 18(H) 9 - 16 mg/dL [facility] Creatinine, Serum 0.77 0.5 - 1.4 mg/dL [facility] Creatinine Clr Calc Pharmacy 83.1 [facility] Comment:eGFR (calculated fro m the MDRD study equation) and eCrCl(calculated from the Cockcroft-Gault equation) are based ondifferent parameters and may not yield comparable results.If eCrCl result is absurd, please check patient'sheight/weight. Estimated Glomerular Filt Rate >60 [facility] Comment:Chronic Kidney Disea se: Estimated GFR < 60 mL/min/1.99x2Ioxbey Kidney Disease: Estimated GFR < 15 mL/min/1.73m2 Glucose 88 60 - 115 mg/dL [facility] Calcium 9.9 8.4 - 10.2 mg/dL [facility] Bilirubin, Total 1.0 0.0 - 1.0 mg/dL [facility] Aspartate Amino Transferase 41(H) 5 - 37 U/L [facility] Comment:Slight Hemolysis.Int erpret result with caution. Alanine Aminotransferase 21 0 - 40 U/L [facility] Total Protein 7.7 6.5 - 8.0 g/dL [facility] Albumin Level 4.3 3.5 - 5.0 g/dL [facility] Alkaline Phosphatase 57 39 - 117 U/L [facility] 07/23/2025 2:19 PM EDT 07/23/2025 2:21 PM EDT us Generic External Data Provider LAB BLOOD ORDERAB LES Final Result [facility] [address] [place] [address] [phone] * (ABNORMAL) Urinalysis, Complete, with Reflex to Culture (07/21/2025 10:37 AM EDT) Color Urine Yellow [facility] Appearance Urine Clear [facility] PH 7.0 5.0 - 9.0 [facility] Glucose Urine UA >=1000(A) Negative mg/dL [facility] Urine Blood Negative Negative [facility] Specific [place] - Urine >=1.030(H) 1.005 - 1.025 [facility] Urine Protein Negative Neg-Trace mg/dL [facility] Urine Ketones Negative Negative mg/dL [facility] Nitrite Urine Negative Negative [facility] Leukocyte Esterase Urine Negative Negative [facility] RBC Urine 0-2 0 - 2 /HPF [facility] Urine WBC 0-5 0 - 5 /HPF [facility] Urine Squamous Epithelial Cell 0-2 0 - 2 /HPF [facility] Urine Bacteria None Seen None Seen [facility] Hyaline Casts, Urine 0-2 0 - 2 /LPF [facility] 07/21/2025 10:3 7 AM EDT 07/21/2025 10:41 AM EDT Narrative [facility] - 07/21/2025 11:05 AM EDT [id number], Clean Catch us Generic External Data Provider LAB URINE ORDERAB LES Final Result Performing Organization Address [facility]/ZIP Co de Phone Number [facility] [address] [place] [phone] * Lipase (07/21/2025 10:37 AM EDT) Lipase 26 8 - 78 U/L [facility] 07/21/2025 10:3 7 AM EDT 07/21/2025 10:41 AM EDT us Generic External Data Provider LAB BLOOD ORDERAB LES Final Result Performing Organization Address [facility] Co de Phone Number [facility] [address] [place] [phone] * Leukocytes Stool Qualitative (07/17/2025 9:40 AM EDT) Leukocytes Stool Qualitative NEGATIVE NEGATIVE [facility] Stool 07/17/2025 9:40 AM EDT 07/17/2025 12:13 PM EDT us Farrah Jackson DO LAB BODY FLUIDS AND STOOLS O RDERABLES Final Result Performing Organization Address [facility] Co de Phone Number [facility] [address] [place] [phone] * Stool - Gastrointestinal panel (07/17/2025 9:40 AM EDT) Campylobacter Not Detected Not Detect. [facility] Plesiomonas shigelloides Not Detected Not Detect. [facility] Salmonella Not Detected Not Detect. [facility] Vibrio Not Detected Not Detect. [facility] Vibrio cholerae Not Detected Not Detect. [facility] YERSINIA ENTEROCOLITICA Not Detected Not Detect. [facility] Enteroaggregative E. coli (EAEC) Not Detected Not Detect. [facility] Enteropathogenic E. coli (EPEC) Not Detected Not Detect. [facility] Enterotoxigenic E. coli (ETEC) lt/st Not Detected Not Detect. [facility] Shiga-like toxin-producing E. coli (STEC) stx1/stx2 Not Detected Not Detect. [facility] E coli O157 Not applicable Not Detect. [facility] Comment:E. coli containing t he O157 antigen are a subset ofShiga-like toxin- producing E. coli (STEC). Shigella/Enteroinvasive E. coli (EIEC) Not Detected Not Detect. [facility] Cryptosporidium Not Detected Not Detect. [facility] Cyclospora cayetanensis Not Detected Not Detect. [facility] Entamoeba histolytica Not Detected Not Detect. [facility] Giardia lamblia Not Detected Not Detect. [facility] Adenovirus F 40/41 Not Detected Not Detect. [facility] Astrovirus Not Detected Not Detect. [facility] Norovirus GI/GII Not Detected Not Detect. [facility] Rotavirus A Not Detected Not Detect. [facility] Sapovirus Not Detected Not Detect. [facility] Comment: All results must be [...] assay is performed by Multiplexed PCR, utilizing IO Turbine Array. Stool Rectal contents / Unknown 07/17/2025 9:40 AM EDT 07/17/2025 12:13 PM EDT us Farrah Jackson DO LAB MICROBIOLOGY - GENERAL O RDERABLES Final Result [facility] [address] [place] [phone] * Vitamin D, 25-Hydroxy, Total, Immunoassay (07/16/2025 1:40 PM EDT) Vitamin D 25-OH Total 56.9 >30 ng/mL [facility] Comment: Health Based Reference Values*< 20 ng/mL [id number] ng/mL Insufficient> 30 ng/mL Sufficient*Andrea VAZQUEZ. N [...] ORDERABLES Final R esult Performing Organization Address [facility] de Phone Number [facility] [address] [place] [phone] * Vitamin B12 (Cobalamin) and Folate Panel, Serum (07/16/2025 1:40 PM EDT) [facility] Vitamin B12 365 200 - 900 pg/mL [facility] Comment:NORMAL 200-900 PG/ML INDETERMINATE 160-199 PG/ML DEFICIENT < 160 PG/ML Folate >20.0 > or = 4.0 ng/mL [facility] Comment:Reference Values:> o r = [...] ORDERABLES Final R esult Performing Organization Address [facility] Co de Phone Number [facility] [address] [place] [phone] * T-SPOT??.TB (07/16/2025 1:40 PM EDT) [facility] T Spot TB Negative Negative [facility] Comment:A negative test resu lt [...] as aquantitative test. TS PANEL A 0 [facility] TS PANEL B 1 [facility] Negative Control Passed [facility] Positive Control Passed [facility] Comment:For additional infor mation, please refer [email or web address].[employer]/faq/OCP512(This link is being provided for informational/educational purposes only.)THIS TEST WAS PERFORMED AT:[employer] [id number] [place] [id number] AVILES MD,PHD 07/16/2025 1:40 PM EDT 07/16/2025 4:03 PM EDT us Farrah Jackson DO LAB BLOOD ORDERABLES Final R esult [facility] [address] [place] [phone] * (ABNORMAL) Albumin, Random Urine W/Creatinine (07/16/2025 1:40 PM EDT) Creatinine, Urine 48.41 mg/dL [facility] Microalbumin Urine 15.0 mg/L [facility] Microalbum Creatinine Ratio Ur 30.9(H) <30 ug/mg cr [facility] Comment:Albumin/Creatinine R atio Reference Ranges: Normal: < 30 ug/mg creatinine Microalbuminuria: 30 - 300 ug/mg creatinineClinical Albuminuria: > 300 ug/mg creatinine Urine (Urine, Random) 07/16/2025 1:40 PM EDT 07/16/2025 4:03 PM EDT Farrah Renetta LAB URINE ORDERABLES Final R esult Performing Organization Address [facility]/ZIP Co de Phone Number [facility] [address] [place] [phone] * Hepatitis C Antibody with Reflex to HCV, RNA, Quantitative, Real-Time PCR (07/16/2025 1:40 PM EDT) Hepatitis C Antibody Nonreactive Nonreactive [facility] Comment:Antibodies to HCV no t detected; does not exclude early acuteHCV infection. Blood Venous blood specimen / Unknown 07/16/2025 1:40 PM EDT 07/16/2025 4:03 PM EDT Farrah Renetta LAB BLOOD ORDERABLES Final R esult Performing Organization Address [facility] Co de Phone Number [facility] [address] [place] [phone] * Alpha-Fetoprotein, Tumor Marker (07/16/2025 1:40 PM EDT) Pathologist [facility] Alpha Fetoprotein 1.1 <6.1 ng/mL [facility] Comment:This test was perfor med using the Malorie Coulterchemiluminescent method. Values obtained fromdifferent assay methods cannot be usedinterchangeably. AFP levels, regardless ofvalue, should not be interpreted as absoluteevidence of the presence or absence of disease.THIS TEST WAS PERFORMED AT:[facility] [place] [id number] SOTO MD Blood Venous blood specimen / Unknown 07/16/2025 1:40 PM EDT 07/16/2025 4:09 PM EDT Farrah Jackson LAB BLOOD ORDERABLES Final R esult Performing Organization Address [facility]/ZIP Co de Phone Number [facility] [address] [place] [phone] * Hepatitis B surface antigen, EIA (07/16/2025 1:40 PM EDT) Pathologist [facility] Hepatitis B Surface Ag Negative Negative [facility] Blood Venous blood specimen / Unknown 07/16/2025 1:40 PM EDT 07/16/2025 4:03 PM EDT Farrah Chavesingridantonia LAB BLOOD ORDERABLES Final R esult Performing Organization Address [facility] Co de Phone Number [facility] [address] [place] [phone] * RPR (Monitor) with Reflex to??Titer (07/16/2025 1:40 PM EDT) Pathologist [facility] RPR (Monitor) w/Refl Titer NON-REACTI VE NON-REACT EYAD [facility] Comment:THIS TEST WAS PERFOR MED AT:[facility] [address] [id number] SOTO MD Rapid Plasma Reagin Ab Titer TNP [facility] Blood Venous blood specimen / Unknown 07/16/2025 1:40 PM EDT 07/16/2025 4:03 PM EDT Farrah Chavesingridmi DO LAB BLOOD ORDERABLES Final R esult Performing Organization Address [facility]/ZIP Co de Phone Number [facility] [address] [place] [phone] * HIV-1/2 Antigen and Antibodies, Fourth Generation, with Reflexes (07/16/2025 1:40 PM EDT) Pathologist [facility] HIV AB/AG Nonreactive Nonreactive [facility] Comment:HIV-1 p24 Ag and/or HIV-1/HIV-2 Ab not detected.A test result that is nonreactive does not exclude thepossibility of exposure to or infection with HIV-1 and/orHIV-2. Nonreactive results in this assay for individualswith prior exposure to HIV-1 and/or HIV-2 may be due toantigen and antibody levels that are below the limit ofdetection of this assay.The [employer] HIV Ag/Ab Combo assay result andsupplemental assay results should be interpreted inconjunction with the patient's clinical presentation,history and other laboratory results. If the results areinconsistent with clinical evidence, additional testing issuggested to confirm the result. Blood Venous blood specimen / Unknown 07/16/2025 1:40 PM EDT 07/16/2025 4:03 PM EDT Farrah Jackson LAB BLOOD ORDERABLES Final R esult Performing Organization Address [facility]/ZIP Co de Phone Number [facility] [address] [place] [phone] * Hepatitis B Surface Antibody, Qualitative (07/16/2025 1:40 PM EDT) Pathologist [facility] ~Hepatitis B Surface Antibody REACTIVE Nonreactive [facility] Comment:REACTIVE: > 11.99 mI U/mL Blood Venous blood specimen / Unknown 07/16/2025 1:40 PM EDT 07/16/2025 4:03 PM EDT Farrah Jackson LAB BLOOD ORDERABLES Final R esult Performing Organization Address City/[facility]/ZIP Co de Phone Number [facility] [address] [place] [phone] * (ABNORMAL) Urinalysis Complete (07/16/2025 1:40 PM EDT) Color Urine Yellow [facility] Appearance Urine Clear [facility] PH 5.5 5.0 - 9.0 [facility] Glucose Urine UA >=1000(A) Negative mg/dL [facility] Urine Blood Negative Negative [facility] Specific [place] - Urine 1.020 1.005 - 1.025 [facility] Urine Protein Negative Neg-Trace mg/dL [facility] Urine Ketones Negative Negative mg/dL [facility] Nitrite Urine Negative Negative [facility] Leukocyte Esterase Urine Negative Negative [facility] RBC Urine 0-2 0 - 2 /HPF [facility] Urine WBC 0-5 0 - 5 /HPF [facility] Urine Squamous Epithelial Cell 0-2 0 - 2 /HPF [facility] Urine Bacteria None Seen None Seen [facility] Hyaline Casts, Urine 0-2 0 - 2 /LPF [facility] Urine (Urine, Random) 07/16/2025 1:40 PM EDT 07/16/2025 4:03 PM EDT Farrah Jackson DO LAB URINE ORDERABLES Final R esult Performing Organization Address [facility] Co de Phone Number [facility] [address] [place] [phone] * Sed Rate by Modified Westergren (07/16/2025 1:40 PM EDT) Pathologist [facility] Erythrocyte Sedimentation Rate 2 0 - 15 MM/HR [facility] Comment:Patients with polycy themia and many hemoglobin abnormalitiesmay have depressed sed rates whereas patients with anemiamay have elevated sed rates. Blood Venous blood specimen / Unknown 07/16/2025 1:40 PM EDT 07/16/2025 4:03 PM EDT [employer] LAB BLOOD ORDERABLES Final R esult Performing Organization Address [facility] Co de Phone Number [facility] [address] [place] [phone] * C-reactive Protein (07/16/2025 1:40 PM EDT) Pathologist [facility] C Reactive Protein 0.30 < or = 0.50 mg/dL [facility] Blood Venous blood specimen / Unknown 07/16/2025 1:40 PM EDT 07/16/2025 4:09 PM EDT Farrah Jackson LAB BLOOD ORDERABLES Final R esult Performing Organization Address [facility]/ZIP Co de Phone Number [facility] [address] [place] [phone] * TSH (07/16/2025 1:40 PM EDT) Thyroid Stimulating Hormone 1.75 0.32 - 4.0 uIU/mL [facility] Comment:TSH 3rd Generation ( [employer]) Blood Venous blood specimen / Unknown 07/16/2025 1:40 PM EDT 07/16/2025 4:09 PM EDT Farrah Jackson LAB BLOOD ORDERABLES Final R esult Performing Organization Address [facility] Co de Phone Number [facility] [address] [place] [phone] * T4, Free (07/16/2025 1:40 PM EDT) Free T4 (Free Thyroxine) 0.95 0.71 - 1.85 ng/dL [facility] Blood Venous blood specimen / Unknown 07/16/2025 1:40 PM EDT 07/16/2025 4:09 PM EDT Farrah Jackson LAB BLOOD ORDERABLES Final R esult Performing Organization Address [facility] Co de Phone Number [facility] [address] [place] [phone] * (ABNORMAL) PSA,Total (07/16/2025 1:40 PM EDT) Prostate Specific Antigen 5.00(H) <0.05 - 4.0 ng/mL [facility] Comment:PSA methodology: Abb codey Alinity i ChemiluminescentMicroparticle Immunoassay (CMIA) Blood Venous blood specimen / Unknown 07/16/2025 1:40 PM EDT 07/16/2025 4:03 PM EDT Farrah Jackson LAB BLOOD ORDERABLES Final R esult Performing Organization Address City/[facility]/ZIP Co de Phone Number [facility] [address] [place] [phone] * Prealbumin (07/16/2025 1:40 PM EDT) Prealbumin 25.0 20 - 40 mg/dL [facility] Blood Venous blood specimen / Unknown 07/16/2025 1:40 PM EDT 07/16/2025 4:03 PM EDT Farrah Jackson DO LAB BLOOD ORDERABLES Final R esult Performing Organization Address [facility] Co de Phone Number [facility] [address] [place] [phone] * Hemoglobin A1c (07/16/2025 1:40 PM EDT) Hemoglobin A1c 5.8 <6.0 % [facility] Comment:Hemoglobin A1C Refer ence Range Adults: 4.8 - 6.0 % Non diabetic: < 6.0 % Goal: < 7.0 %Additional Action Suggested: > 8.0 %Note: Hemoglobin A1c results are invalid for patients with abnormal amounts of HbF. Blood transfusions may impact the HbA1c concentration in the patient sample. Estimated Average Glucose 120 mg/dL [facility] Comment:eAG = Estimated ave rage glucose which is %A1C expressed asaverage glucose, using the formula of the L0X-XepuqnwOsqiupp Glucose study (ADAG), Diabetes Care, Vol.31,#8,May. 2007 Blood Venous blood specimen / Unknown 07/16/2025 1:40 PM EDT 07/16/2025 4:03 PM EDT Farrah Renetta DO LAB BLOOD ORDERABLES Final R esult Performing Organization Address City/[facility]/ZIP Co de Phone Number [facility] [address] [place] [phone] * Hepatic Function Panel (07/16/2025 1:40 PM EDT) Bilirubin, Total 0.8 0.0 - 1.0 mg/dL [facility] Bilirubin, Direct 0.4 0.0 - 0.5 mg/dL [facility] Aspartate Amino Transferase 33 5 - 37 U/L [facility] Alanine Aminotransferase 23 0 - 40 U/L [facility] Total Protein 7.2 6.5 - 8.0 g/dL [facility] Albumin Level 4.3 3.5 - 5.0 g/dL [facility] Alkaline Phosphatase 58 39 - 117 U/L [facility] Blood Venous blood specimen / Unknown 07/16/2025 1:40 PM EDT 07/16/2025 4:09 PM EDT Frarah Renetta DO LAB BLOOD ORDERABLES Final R esult Performing Organization Address [facility] Co de Phone Number [facility] [address] [place] [phone] * (ABNORMAL) Lipid Panel, Standard (07/16/2025 1:40 PM EDT) Triglycerides 46 <150 mg/dL [facility] Comment:Desirable Triglyceri de: less than 150 mg/dLBorderline High Triglyceride 150-199 mg/dLHigh Triglyceride: 200-499 mg/dLVery High Triglyceride: greater than or equal to 5OO mg/dL Cholesterol 87 <200 mg/dL [facility] Comment:Desirable Cholestero l: less than 200 mg/dLBorderline High Cholesterol: 200-239 mg/dLHigh Cholesterol: greater than 239 mg/dL LDL Cholesterol Calculated 42 <100 mg/dL [facility] Comment:Desirable LDL: less than 100 mg/dLNear Optimal/Above Optimal LDL: 110- 129 mg/dLBorderline High LDL: 130-159 mg/dLHigh LDL: 160-189 mg/dLVery High LDL: greater than or equal to 190 mg/dL HDL Cholesterol 36(L) >40 mg/dL [facility] Comment:Desirable HDL: great er than 40 mg/dL Note: This HDL assay may give artificially low results in patients with liver disease. Blood Venous blood specimen / Unknown 07/16/2025 1:40 PM EDT 07/16/2025 4:09 PM EDT Farrah Jackson DO LAB BLOOD ORDERABLES Final R esult [facility] [address] [place] [phone] * Basic Metabolic Panel (07/16/2025 1:40 PM EDT) Sodium 143 135 - 145 mmol/L [facility] Potassium 3.9 3.3 - 5.1 mmol/L [facility] Chloride 108 96 - 108 mmol/L [facility] Carbon Dioxide 27 22 - 29 mmol/L [facility] Anion Gap 12 12 - 20 [facility] Urea Nitrogen (BUN) 15 9 - 16 mg/dL [facility] Creatinine, Serum 0.80 0.5 - 1.4 mg/dL [facility] Estimated Glomerular Filt Rate >60 [facility] Comment:Chronic Kidney Disea se: Estimated GFR < 60 mL/min/1.91y3Opueyv Kidney Disease: Estimated GFR < 15 mL/min/1.73m2 Glucose 83 60 - 115 mg/dL [facility] Calcium 9.6 8.4 - 10.2 mg/dL [facility] Blood Venous blood specimen / Unknown 07/16/2025 1:40 PM EDT 07/16/2025 4:09 PM EDT us Farrah Chavessamantha DO LAB BLOOD ORDERABLES Final R esult [facility] [address] [place] [phone] * POCT Hgb A1c (07/16/2025 12:27 PM EDT) Only the most recent of2 resultswithin the time period is included. Hemoglobin A1C 5.5 4.0 - 5.7 % QC Media Lot # [id number] Lot# Expiration Date Blood 07/16/2025 12:2 7 PM EDT Farrah Jackson DO POINT OF [...] Chest 2 Views (06/20/2025 10:42 PM EDT) Anatomical Region Laterality Modality Chest Radiographic Dasia ging 06/20/2025 10:4 2 PM EDT Narrative 06/20/2025 10:44 PM EDT [address] [address] XRay Report Signed Patient: Sonny Curiel MR#: [id number] : 1960 Acct:[id number] Age/Sex: 64 / M ADM Date: 06/20/25 Loc: HO.ED Attending Dr: Ordering Physician: Tamiko Luna MD Date of Service: 06/20/25 Procedure(s): XR chest 2V Accession Number(s): [id number] cc: Tamiko Luna MD; Farrah Jackson DO CLINICAL HISTORY: sob --- Additional Notes or Special Instructions: with doctor-09:21pm Chest X-ray, 2 Views COMPARISON: CR/SR - XR CHEST 2 VIEWS - 05/29/25 16:16 EDT CR - XR CHEST 2V - 03/17/25 11:07 EDT CR/MO/SR - XR CHEST 2V - 12/19/22 11:51 [...] in OV> 06/20/252242 DD/ 41 TD/TT: 06/20/252241 Nut Sheller Machine Operator: Procedure Note Donotuseinterpreter, Image - 06/20/2025 [place] [address] XRay Report Signed Patient: Emily Curiel#: [id number] : 9Acct:[id number] Age/Sex: 64 / MADM Date: 06/20/25 Loc: HO.ED Attending Dr: Ordering Physician: Tamiko Luna MD Date of Service: 06/20/25 Procedure(s): XR chest 2V Accession Number(s): [id number] cc: Tamiko Luna MD; Farrah Jackson DO CLINICAL HISTORY: sob --- Additional Notes or Special Instructions: withdoctor-09:21pm Chest X-ray, 2 Views COMPARISON: CR/SR - XR CHEST 2 VIEWS - 05/29/25 16:16 EDT CR - XR CHEST 2V - 03/17/25 11:07 EDT CR/MO/SR - XR CHEST 2V - 12/19/22 11:51 [...] in OV> 06/20/252242 DD/ 41 TD/TT: 06/20/252241 Nut Sheller Machine Operator: [facility] External Provider IMG XR PROCEDURES Edited Result - Final * (ABNORMAL) B Type Natriuretic Peptide (BNP) (06/20/2025 9:37 PM EDT) [facility] B Type Natriuretic Peptide 3,006(H) <100 pg/mL [facility] 06/20/2025 9:37 PM EDT 06/20/2025 9:40 PM EDT Generic External Data Provider LAB BLOOD ORDERAB LES Final Result [facility] [address] [place], [place] [phone] * Influenza A B2 ID NOW ([place]) (06/20/2025 6:41 PM EDT) [facility] IDNOW SERIAL# [id number] [facility] Influenza A Negative Negative [facility] Influenza B2 Negative Negative [facility] Influenza A B2 Note See Note [facility] Comment:The [place] ID NOW In [...] LAB MICROBIOLOGY - GENERAL ORDERABLES Final Result [facility] [address] [place] [phone] * COVID-19 ID NOW (IRV[place]) (06/20/2025 6:41 PM EDT) IDNOW SERIAL# [id number] [facility] COVID-19 TEST Negative Negative [facility] COVID-19 NOTE See Note [facility] Comment: Results are for the identification of SARS-CoV2 RNA. TheSARS-CoV2 RNA is generally detectable in respiratory samplesduring the acute phase of infection. Positive results areindicative of the presence of SARS-CoV-2 RNA; clinicalcorrelation with patient history and other diagnosticinformation is necessary to determine patient infectionstatus. Positive results do not rule out bacterial infectionor co- infection with other viruses.Testing facilities within the [facility] and itsterritories are required to report all [...] use by authorized laboratories.Testing performed on the eSKY.pl ID NOW utilizing NAAT. 06/20/2025 6:41 PM EDT 06/20/2025 6:45 PM EDT us Generic External Data Provider LAB MOLECULAR RENETTA GNOSTICS ORDERABLES Final Result [facility] [address] [place] [phone] * Cologuard?? colon cancer screening (08/26/2023 12:36 PM EDT) Cologuard Result Negative Negative 09/02/20 1:54 AM [employer] (CLIA #:[id number]) Comment: NEGATIVE TEST RESULT. A negative Cologuard [...] Orona. et al, N Engl J Med 2014;370(14):3721-7569) The normal value (reference range) for this assay is negative. COLOGUARD RE-SCREENING RECOMMENDATION: Periodic colorectal cancer screening is an important part of preventive healthcare for asymptomatic individuals at average risk for colorectal cancer. Following a negative Cologuard result, the [place] [employer] Society and U.S. Multi-Society Task Force screening guidelines recommend a Cologuard re-screening interval of 3 years. References: [place] [employer] Guideline for Colorectal Cancer Screening: https://www.cancer.org/cancer/lklbu-prmfxk-unvzvd/tgdplmabc-pxzaulfxy-dxmvzbv/ac s-rec ommendations.html.; Matty YOUNG, Krys HALL, Shelton MCDONNELL, Colorectal Cancer Screening: Recommendations for Physicians and Patients from the U.S. Multi-Society Task Force on Colorectal Cancer Screening , Am J Gastroenterology 2017; 112:7193-6535. TEST DESCRIPTION: Composite algorithmic analysis of stool [...] (Liang Champion al, N Engl J Med 2014;370(14):1285-5855.) Cologuard may produce a false negative or false positive result (no colorectal cancer or precancerous polyp present at colonoscopy follow up). A negative Cologuard test result does not guarantee the absence of CRC or advanced adenoma (pre-cancer). The current Cologuard screening interval is every 3 years. ([place] [employer] Society and U.S. Multi-Society Task Force). Cologuard performance data in a 10,000 patient pivotal study using colonoscopy as the reference method can be accessed at the following location: www.[employer]/results. Additional description of the Cologuard test process, warnings and precautions can be found at www.[employer].com. Stool specimen (specimen) 08/26/2023 12:36 PM EDT 08/27/2023 6:19 PM EDT Farrah Jackson DO LAB MOLECULAR DIAGNOSTICS OR DERABLES Final Result [employer] (CLIA #:[id number]) [place] [address], [place] [phone] from Last 3 Months or Most Recently Relevant to Health Maintenance Insurance [facility] OPTIONS (HMO D-SNP) [facility] Care Teams Operations Recruiter Relationship Specialty Start Date End Date Farrah Jackson DO [address] [place] [phone] PCP - General Family Medicine 10/25/18
--- OUTSIDE RECORDS SUMMARY | 2025-09-06 13:10 | XMS_ITS | Encounter Summary ---
Author Organization [employer] Address [address] [place] [address] Care Team Providers Care Experimental Mechanic Electrical Name Role Phone Farrah Jackson DO Primary Care Provider + [phone] Reason for Visit * Reason Comments Med Refill Encounter Details Date Type Department Care Team ([facility] Contact Info) Description 07/10/2024 Refill [facility] [address] [place], [place] [phone] Farrah Jackson DO [address] [place], [place] [phone] Social History Tobacco Use Types Packs/Day Years [...] Description 09/10/2025 1:00 PM EST Office Visit [facility] [address] [place] [address] Marie Zhao, OD [address] [place] [address] documented as of this encounter Visit Diagnoses Not on filedocumented in this encounter Additional Health Concerns Assessment Noted Time PHQ-9 Depression Total Score: 2 04/21/20 24 8:50 AM EDT documented as of this encounter Care Teams Experimental Mechanic Electrical Relationship Specialty Start Date End Date Farrah Jackson DO [address] [place] [phone] PCP - General Family Medicine 10/25/18 documented as of this encounter
--- OUTSIDE RECORDS SUMMARY | 2025-09-06 13:10 | XMS_ITS | Encounter Summary ---
Author Organization [employer] Address [address] [place] [address] Care Team Providers Care Cutter V Groove Name Role Phone Meagan Jacksonfer Primary Care Provider + [phone] Reason for Visit * Reason Comments Med Refill Encounter Details Date Type Department Care Team ([facility] Contact Info) Description 01/11/2025 Refill [facility] [address] [place], [place] [phone] Alexsandra Luevano MD [address] [place], [place] [phone] Primary hypertension Social History Tobacco Use Types [...] Description 09/10/2025 1:00 PM EST Office Visit [facility] [address] [place] [address] Marie Zhao, OD [address] [place] [address] documented as of this encounter Visit Diagnoses Diagnosis Primary hypertension Unspecified essential hypertension documented in this encounter Additional Health Concerns Assessment Noted Time PHQ-9 Depression Total Score: 2 04/21/20 24 8:50 AM EDT documented as of this encounter Care Teams Cutter V Groove Relationship Specialty Start Date End Date Farrah Jackson DO [address] [place] [phone] PCP - General Family Medicine 10/25/18 documented as of this encounter
--- OUTSIDE RECORDS SUMMARY | 2025-09-06 13:10 | XMS_ITS | Encounter Summary ---
Author Organization [employer] Address [address] [place] [address] Care Team Providers Care Physician Coding Specialist Name Role Phone Farrah Jackson DO Primary Care Provider + [phone] Reason for Visit * Reason Comments Med Refill Encounter Details Date Type Department Care Team ([facility] Contact Info) Description 11/14/2023 Refill [facility] [address] [place], [place] [phone] Farrah Jackson DO [address] [place], [place] [phone] Social History Tobacco Use Types Packs/Day Years [...] Description 09/10/2025 1:00 PM EST Office Visit [facility] [address] [place], [place] [phone] Marie Zhao, OD [address] [place] [address] documented as of this encounter Visit Diagnoses Not on filedocumented in this encounter Care Teams Physician Coding Specialist Relationship Specialty Start Date End Date Farrah Jackson DO [address] [place] [phone] PCP - General Family Medicine 10/25/18 documented as of this encounter
--- OUTSIDE RECORDS SUMMARY | 2025-09-06 13:10 | XMS_ITS | Encounter Summary ---
Author Organization [employer] Address [address] [place] [address] Care Team Providers Care Manager Rfid Name Role Phone Meagan Jacksonfer Primary Care Provider + [phone] Reason for Visit * Reason Comments Med Refill Encounter Details Date Type Department Care Team ([facility] Contact Info) Description 11/19/2023 Refill [facility] [address] [place], [place] [phone] Juana Wilson MD [address] [place], [place] [phone] Social History Tobacco Use Types Packs/Day Years [...] 1:00 PM EST Office Visit [facility] [address] [place], [place] [phone] Marie Zhao, OD [address] [place] [address] documented as of this encounter Visit Diagnoses Not on filedocumented in this encounter Care Teams Manager Rfid Relationship Specialty Start Date End Date Farrah Jackson DO [address] [place] [address] PCP - General Family Medicine 10/25/18 documented as of this encounter
--- OUTSIDE RECORDS SUMMARY | 2025-09-06 13:10 | XMS_ITS | Encounter Summary ---
Author Organization [employer] Address [address]t [place] [address] Care Team Providers Care Diamond Sizer Name Role Phone Farrah Jackson DO Primary Care Provider + [phone] Reason for Visit * Reason Onset Date Comments Nurse Triage 12/28/2023 Encounter Details Date Type Department Care Team ([facility] st Contact Info) Description 12/28/2023 Telephone [facility] [address] [place], [place] [phone] Farrah Jackson DO [address] [place], [place] [phone] Nurse Triage Social History Tobacco Use Types [...] for UTI. Pt is advised to come [facility] for provider to see Pt. Pt insurance is not active at this time and Pt is waiting for medicare to start. Advised to stop at desk pens assembler to speak about insurance before going to [facility] . Pt agreed with disposition [...] accepted this outcome Please contact pt at [phone] documented in this encounter Plan of Treatment Upcoming Encounters Date Type Department Care Team ([facility] Contact Info) Description 09/10/2025 1:00 PM EST Office Visit [facility] [address] [place], [place] [phone] Marie Zhao, ANGIE [address] [place] [address] documented as of this encounter Visit Diagnoses Not on filedocumented in this encounter Care Teams Diamond Sizer Relationship Specialty Start Date End Date Farrah Jackson DO [address] [place] [phone] PCP - General Family Medicine 10/25/18 documented as of this encounter
--- OUTSIDE RECORDS SUMMARY | 2025-09-06 13:10 | XMS_ITS | Clinical Summary ---
Author Organization [facility] Address [address] [place] [phone] Phone Care Team Providers Care Production Team Member Name Role Phone Unavailable Primary Care Provider [...] Depression Screening 10/25/2024 COVID-19 Vaccine (1 - 2024-2 6 season) 2025 Influenza Vaccine (#1) 2025 RSV [...]
--- OUTSIDE RECORDS SUMMARY | 2025-09-06 13:10 | XMS_ITS | Encounter Summary ---
Author Organization [facility] Address [address] [place] [address] Care Team Providers Care Nematology Teacher Name Role Phone Unavailable Primary Care Provider Unavailabl e Encounter Details Date Type Department Care Team (Late st Contact Info) Description 09/11/2024 Lab Requisition [facility] Lab [address] [facility] [address] [address] [place] [phone] Krishna Jose MD [address] [facility] [address] [place] [id number] Elevated prostate specific antigen (PSA) Social History [...] LAB Gross Description A. Urine, Voided, : [id number] Recd 1 TP CYTO 09/20/2024 4:27 PM EST [facility] Disclaimer Unless otherwise specified, all tissue is 10% NB formalin fixed and paraffin embedded. 09/20/2024 4:27 PM EST [facility] Tissue Urine specimen from urethra / Unknown 09/06/2024 09/11/2024 1:13 PM EST us Krishna Jose MD LAB PATHOLOGY ORDERABLES Final Result [facility] [address] [place] [address], documented in this encounter Visit Diagnoses Diagnosis Elevated prostate specific antigen (PSA) documented in this encounter
== END 2025-09-06 10:44 | disposition home or self-care (01) ==
LOC: HO.RESP 10:43
PROVIDERS: PCP Family Medicine; Visit Provider Hospitalist
DX: J41.0 Simple chronic bronchitis (principal); J44.89 Other specified chronic obstructive pulmonary disease
CPT/HCPCS: 94060; 94640; 94727; 94729

== ENCOUNTER → 2025-09-06 10:45 | Outpatient (BNV) | payer OTHER, SELFPAY | PROVIDERS: PCP Family Medicine; Visit Provider Hospitalist | DX: J41.0 Simple chronic bronchitis (principal) | CPT/HCPCS: 94060; 94727; 94729 ==

== ENCOUNTER 2025-09-28 12:25 | Outpatient (AMB) | payer OTHER, SELFPAY ==
--- NOTE | 2025-09-28 12:45 | MHC.OFFVIS ---
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 Apparently the patient was in the usual state health until about 10 years ago when he started developing recurrent pneumonias. He was found to have a pulmonary mass and was referred to [place]. He was seen by thoracic surgery in and underwent a partial left upper lobe lobectomy removing what appeared to be a carcinoid per report. I do not have the pathology to review. The patient did have follow-up afterwards but did not require any additional therapies. Overall continue to do well. More recent the patient was developing worse per 3 symptoms and had a repeat chest x-ray back in January 13 demonstrating increase interval haziness of his lungs suggesting of pneumonia and potential pleural effusion. Was treated for that and then discharged. Current the patient feels better he is exercising he denies any significant cough. He states his appetite is good is maintaining his weight. He has lost weight because does been intentional with his lifestyle changes in his exercise. He does have some mild dyspnea on exertion. We did go for a brief walking oximetry in his pulse ox maintain 96 97% with activity with is reassuring. We did review his imaging studies he had her CT scan last done in 2014 demonstrating some bronchiectatic changes in addition to some postoperative changes. We did review his echocardiogram from January demonstrating an EF of 35-40%. While we wait for the results of the studies will go ahead and start him on Symbicort to see if he gets any benefit from the long-acting beta agonist inhaled cortical steroid. 06/17/2020 The patient is here for pulmonary follow-up visit. Initially was feeling very good on the Symbicort. He was able to go to work in his breathing had improved dramatically. However, later he started developing nausea and vomiting after he used it. Was like if he was having allergic reaction to it or an adverse reaction to her. However he kept using it because he could not breathe well. He still continues use about his feels like is now getting more short of breath with minimal activity. He was supposed to get his pulmonary function studies but because of his worsening breathing he was not able to do them. He did not get a CT scan of the chest. On further questioning also complains that he has been coughing up some mucus with also some blood-tinged sputum. He denies any leg swelling history of blood clots. In the blood work we did request a D-dimer that came back elevated. Therefore because of his respiratory symptoms his hemoptysis is elevated D-dimer I will request a CT scan angiogram of the chest to assess for thromboembolic disease. 07/09/2020 the patient is a telephone visit. He is starting to complain about shortness of breath. Initially the last time we did give him Lasix which she took for several days in his respiratory status became significantly better. However, his Lasix was then completed and he started having worsening shortness of breath. We did review his last echocardiogram demonstrating an EF of 45% with hypokinesis of the left ventricle. In addition to that we did discuss the CT scan findings again. The patient was supposed to go for repeat echocardiogram but he has not done so. He was also supposed to undergo pulmonary function studies but he has not done so. In the meantime explained to him that he is already taking a diuretic, hydrochlorothiazide. My recommendation is for him to take Lasix for 3 additional days and reassess. In the meantime, we talked about the importance of dietary restrictions limiting his sodium intake. The patient is aware that he has to make lifestyle changes and is going to start this as soon as possible. 08/20/2020 the patient is here for pulmonary follow-up visit. Recently he started developing worsening shortness of breath. He did go to the ER. Had a chest x-ray demonstrating some cephalization bilateral pleural effusions. There were small. He did undergo an echocardiogram demonstrating a decreased ejection fraction of about 20-25%. Become very concerned about this. He does have a follow-up with cardiology soon. In meantime he is having daytime drowsiness. He is having headaches in morning. Now with significant cardiac disease to repeat his sleep study. Will try to have him get a home sleep study at this time. Continues with diuresis and his cardiac medications were optimized further. He does have a short-acting beta agonist that he uses as needed. At this point will not going to add any additional inhalers to minimize interactions with his cardiac issues. We did review his last CT scan of the chest that he had recently when he went to the ER which was reassuring. 02/05/2022 the patient is here for pulmonary follow-up visit. Overall the patient is doing well. He has been staying active and Still participating in pulmonary rehabilitation. He has found the pulmonary rehab extremely helpful. He would like to continue it. Will request that he continue on face 3. he also has been very compliant with his CPAP. The CPAP therapy has been affecting beneficial. He does use it all night more than 4 hours a night. Has been getting supplies regularly. His last echocardiogram was back in October 2020 which demonstrated an EF of 25-30%. Will go ahead and repeated at this time. In addition to this he had CTA recently back in November 2021 demonstrating stable lung parenchyma without any recurrence of the carcinoid. 03/27/2025 the patient is here for pulmonary follow-up visit. Overall the patient has been doing okay. Back in February he did go to the ER with shortness of breath. He had a chest x-ray demonstrating congestive heart failure. Was placed on Lasix and was discharged. He felt much better. The patient has been trying to be careful the sodium intake. He now continues to take 1 tablet of Lasix tingling. Will go ahead and keep him on it. He will see Cardiology in a month. He is already on very good congestive heart failure treatment. It also has his ICD. He understands that he has a very careful with the fluid status. In the meantime he continues has significant daytime drowsiness. His Sonoma is elevated 12/24. The patient did have CPAP in the past but he could not tolerate any longer. Therefore stopped using it. With cardiovascular disease and congestive heart failure he understands is very important for him to tolerated. Will go ahead and order an in-lab sleep study at this time to get him reactivity with the [employer] company and start treating him again for the sleep apnea. The patient is agreeable at this time. Will follow-up in 3 3 months after the study to review and to start the therapy. Will discuss additional imaging during the next visit. 07/03/2025 the patient is here for pulmonary follow-up visit. Overall the patient has been doing well. He although he has been losing weight. The family has been concerned. I did reach out to his primary care doctor regarding that. In the meantime the patient does have daytime drowsiness. He has not elevated Sonoma score of 12/24. The patient also has a cardiac condition. He does have a cardiomyopathy with an EF of 20-25%. He did go to the ER with congestive heart failure recently. I did give him additional Lasix for him to take if he starts gaining weight. He will follow-up with cardiology as well. The patient has been having hard time in the past tolerating his CPAP. He had a repeat sleep study demonstrating severe sleep apnea and also hypoxia. Will have him undergo a titration study to see exactly what mask and what pressures are and what settings he would need in order to be successful with his PAP therapy specially with significant cardiac disease. The patient also will benefit from pulmonary rehabilitation. Will go ahead and have him undergo pulmonary function studies in order to get him to rehab [facility]. 09/28/2025 the patient is here for pulmonary follow-up visit. Overall the patient is doing okay. He has had some daytime drowsiness. Sonoma score is elevated 11/24. He did undergo a sleep study back in June demonstrating significant sleep apnea. The patient is placed on CPAP 14 he did well. Also, there was a question of central sleep apnea. They did recommend that if the patient did not tolerate CPAP because of increasing central apneas to go on BiPAP 14/10. Will start him on APAP 6-16 at this time. The patient will start using it every night. She understands that this will be important specially with his cardiovascular risk factors. The patient also needs to start exercising more. He did undergo pulmonary function studies. No evidence of any obstructive disease. He has a very mild restrictive ventilatory defect. In addition to that has a moderate diffusion impairment likely secondary to pulmonary vascular disease in his congestive heart failure history. He is going to continue to exercise regularly. In addition to that continue with cardiac medications. He will continue with his respiratory inhalers. Will follow-up in 4 months to see how he is doing with the PAP therapy. [facility] Medical History Pacemaker Gout Cieim-[id number] deficiency Encounter for discussion regarding implantable cardioverter-defibrillator Cardiomyopathy COPD (chronic obstructive pulmonary disease) Essential hypertension PVC (premature ventricular contraction) MARVA (obstructive sleep apnea) Carcinoid tumor High cholesterol Prostate enlargement Diabetes Surgical History History of surgical procedure (~2022) History of prostate surgery Hx of colonoscopy History of bronchoscopy History of lobectomy of lung Family History Son No problems noted. Father No problems noted. 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 Review of Systems Const Reports daytime sleepiness, Reports difficulty sleeping, Denies night sweats and Reports weight loss ENT Denies change in voice, Denies lip swelling, Denies mouth pain, Denies nasal congestion, Denies nasal discharge and Denies tongue swelling Card Denies chest pain, Reports dyspnea on exertion and Denies orthopnea Resp Reports cough and Reports dyspnea on exertion GI Denies abdominal pain Musc Denies no additional complaints Neuro Denies Neuro-related abnormal movements Psych Denies no additional complaints Jack/Lymph Denies easy bleeding and Denies lymphadenopathy Aller/Immun Denies lip swelling and Denies tongue swelling Physical Exam Vital Signs: Last Vital Signs Pulse 70 09/28/25 12:46 BP 104/64 09/28/25 12:46 Pulse Ox 98 09/28/25 12:46 Oxygen Delivery Method Room Air 09/28/25 12:46 BMI result Body Mass Index 22.8 Const General: alert Neck Neck: Yes normal visual inspection, Yes full ROM and Yes no lymphadenopathy Chest Chest palpation & inspection: normal inspection of the chest Resp Effort & Inspection: normal respiratory effort Auscultation: diminished lung sounds Cardio Rate: regular rate Rhythm: regular rhythm Heart sounds: S1 normal heart sound present and S2 normal heart sound present GI Palpation (GI): Soft to palpation and nontender Auscultation: normal bowel sounds Skin General skin exam: rashes and/or lesions noted Assessment & Plan Assessment & Plan (1) MARVA (obstructive sleep apnea): Code(s): G47.33 - Obstructive sleep apnea (adult) (pediatric) Category: Medical (2) NICM (nonischemic cardiomyopathy): Code(s): I42.8 - Other cardiomyopathies Category: Medical (3) S/P ICD (internal cardiac defibrillator) procedure: Code(s): Z95.810 - Presence of automatic (implantable) cardiac defibrillator Category: Surgical (4) Tachycardia, unspecified: Code(s): R00.0 - Tachycardia, unspecified Category: Medical (5) COPD (chronic obstructive pulmonary disease): Code(s): J44.9 - Chronic obstructive pulmonary disease, unspecified Category: Medical Qualifiers: COPD type: chronic bronchitis Chronic bronchitis type: simple Qualified Code(s): J41.0 - Simple chronic bronchitis Plan start APAP 6-16 continue Symbicort JUANITA as needed Low Na diet F/U 3-4 months Coding Level of Care Code Complex visit Add On G2211 Diagnoses MARVA (obstructive sleep apnea) G47.33 NICM (nonischemic cardiomyopathy) I42.8 S/P ICD (internal cardiac defibrillator) procedure Z95.810 Tachycardia, unspecified R00.0 Simple chronic bronchitis J41.0 COPD type: chronic bronchitis Chronic bronchitis type: simple Time Spent (min) 17
[2025-09-28 12:46] VITALS: BP 104/64; PULSE 70; O2SAT 98; BMI 22.8
== END 2025-09-28 13:11 | disposition home or self-care (01) ==
LOC: HO.HPS 12:26
PROVIDERS: PCP Family Medicine; Visit Provider Hospitalist
DX: G47.33 Obstructive sleep apnea (adult) (pediatric) (principal); I42.8 Other cardiomyopathies; Z95.810 Presence of automatic (implantable) cardiac defibrillator; R00.0 Tachycardia, unspecified; J41.0 Simple chronic bronchitis
CPT/HCPCS: 99214; G2211

== ENCOUNTER → 2025-09-28 12:25 | Outpatient (BNVA) | payer OTHER, SELFPAY | PROVIDERS: PCP Family Medicine; Visit Provider Hospitalist | DX: J44.89 Other specified chronic obstructive pulmonary disease (principal); G47.33 Obstructive sleep apnea (adult) (pediatric); I42.8 Other cardiomyopathies; R00.0 Tachycardia, unspecified; Z95.810 Presence of automatic (implantable) cardiac defibrillator; Z99.89 Dependence on other enabling machines and devices; Z79.51 Long term (current) use of inhaled steroids | CPT/HCPCS: 99212 ==

== ENCOUNTER → 2025-09-30 14:25 | Outpatient (BNV) | payer OTHER, SELFPAY | PROVIDERS: PCP Family Medicine; Visit Provider Internal Medicine | DX: I42.8 Other cardiomyopathies (principal); Z95.810 Presence of automatic (implantable) cardiac defibrillator | CPT/HCPCS: 93297 ==

== ENCOUNTER 2025-10-15 13:51 | Outpatient (AMB) | payer OTHER, SELFPAY ==
--- OUTSIDE RECORDS SUMMARY | 2025-10-12 11:30 | XMS_ITS | Encounter Summary ---
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 I have aydendanni chaney 05/30/[address] you [...] AM EDT documented as of this encounter Progress Notes * Marie Zhao, ANGIE - 10/12/2025 11:30 AM EST Eye Care Progress Note Patient ID: Sonny Curiel is a 64 y.o. male. HPI Patient presents for completion of diabetic eye exam and dilation. Patient's last A1c was 5.8% on 07/16/25. Patient's BSL this AM was 81mg/dl. Patient denies any visual or ocular concerns. Last edited by Marie Zhao, ANGIE on 10/12/2025 11:21 AM. Current Medications[1] Medical History[2] Surgical History[3] Family History[4] Tobacco Use: Medium Risk (10/12/2025) Tobacco Smoking Tobacco Use: Former Smokeless Tobacco Use: Never Passive Exposure: Past Allergies[5] ROS Positive for: Endocrine, Eyes Negative for: Constitutional, Gastrointestinal, Neurological, Skin, Genitourinary, Musculoskeletal,HENT, Cardiovascular, Respiratory, Psychiatric, Allergic/Imm, Heme/Lymph Last edited by Marie Zhao, ANGIE on 10/12/2025 11:21 AM. Base Eye Exam Visual Acuity (Snellen - Linear) Right Left Dist cc 20/20 20/20 Tonometry ([facility] , 11:20 AM) Right Left Pressure 9 10 Pupils Pupils APD Right PERRL None Left PERRL None Visual Delaney Left Right Full Full Extraocular Movement Right Left Full Full Neuro/Psych Oriented x3: Yes Mood/Affect: Normal Dilation Both eyes: 1.0% tropicamide @ 11:20 AM Slit Lamp and Fundus Exam External Exam Right Left External Normal Normal Slit Lamp Exam Right Left Lids/Lashes Clean and clear Clean and clear Conjunctiva/Sclera White and quiet White and quiet Cornea Clear Clear Anterior Chamber Deep and quiet, angles open Deep and quiet, angles open Iris Flat, (-) NVI Flat, (-) NVI Lens 3+ cortical cataracts, 1+ NS 3+ cortical cataracts, 1+ NS Fundus Exam Right Left Vitreous Clear Clear Disc [place] with distinct margins, (-) NVD [place] with distinct margins, (-) NVD C/D Ratio Vertical 0.15 0.15 C/D Ratio Horizontal 0.15 0.15 Macula Flat with even pigmentation, (-) DME Flat with even pigmentation, (-) DME Vessels Normal course and caliber, (-) NVE Normal course and caliber, (-) NVE Periphery No holes/tears/detachments 360 No holes/tears/detachments 360 Assessment and Plan Diagnoses and all orders for this visit: 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 Today's exam notes will be made available for PCP to review. Combined forms of age-related cataract of both eyes - Visually insignificant both eyes. Monitor annually. RTC in 1 year for comprehensive eye exam or sooner as needed Marie Zhao, OD 10/12/2025, 11:47 AM [1] Current Outpatient Medications Medication Sig Dispense Refill [...] mouth in the morning. TRUEplus Lancets 33G misc USE TO TEST BLOOD SUGAR TWICE DAILY 100 each 5 No current facility-administered medications for this visit. [2] Past Medical History: Diagnosis Date Diabetes mellitus (HCC) History of transfusion Kidney cysts Pacemaker Pacemaker [3] Past Surgical History: Procedure Laterality Date CTA CHEST W AND WO CONTRAST 06/10/2024 CTA CHEST PE PROTOCAL [4] No family history on file. 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
--- NOTE | 2025-10-15 14:06 | MHC.OFFVIS ---
Vital Signs 10/15/25 14:07 Height 5 ft 7 in Weight 141 lb 1.533 oz BMI 22.1 BP 112/84 Blood Pressure Location Lt brachial Position Sitting Pulse 71 Intake Visit Reasons: Unintentional weight loss Intake Note: Sonny presents in the office as a new patient for unintentional weight loss. CC: He states that yesterday he had diarrhea but today he is okay. It comes and goes. No blood when he has a BM - states that he has some change in his appetite as well. Rubber Off Required: No Allergies oxycodone Adverse Reaction (Intermediate, Verified 10/15/25 14:13) vomiting, delusions HPI Comments Details: 64 year old male presenting for evaluation of unintentional weight loss of over 20 pounds, poor appetite, and early satiety. PMH of carcinoid tumor of lung s/p resection in [place] >10y ago, NICM s/p AICD placement EF 25%, He was seen in the emergency room in May for possible left-sided diverticulitis. He reports getting full easily and while his appetite has improved slightly, he continues to have watery diarrhea about 3 times per day. The diarrhea can occur in the morning or before bed. He denies any abdominal pain, nausea, vomiting, or blood in his stool. Past medical history is significant for a carcinoid tumor of the lung, which was surgically resected in [place] over 10 years ago without requiring chemotherapy or radiation. He has a remote history of smoking and denies any family history of colon cancer. A recent workup by his primary care physician was negative for hepatitis, tuberculosis, HIV, and stool infections. A Cologuard test from 2022 was also negative. --- Pt was informed and consented to the use of ambient scribe for this encounter. --- Results - Laboratory Studies: Negative for hepatitis, tuberculosis, and HIV. - Stool Studies: Negative for infection. - Other: Cologuard test in 2022 was negative. [facility] Medical History (Updated 10/15/25 @ 16:24 by Yusra Parry MD) Pacemaker Gout [id number] deficiency Encounter for discussion regarding implantable cardioverter-defibrillator Cardiomyopathy COPD (chronic obstructive pulmonary disease) Essential hypertension PVC (premature ventricular contraction) MARVA (obstructive sleep apnea) Carcinoid tumor High cholesterol Prostate enlargement Diabetes Surgical History (Updated 10/15/25 @ 14:13 by ALE Bhatti) History of esophagogastroduodenoscopy (EGD) History of surgical procedure (~2022) History of prostate surgery Hx of colonoscopy History of bronchoscopy History of lobectomy of lung Family History Son No problems noted. Father No problems noted. 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 - Gastrointestinal: Reports watery diarrhea approximately three times a day. Denies abdominal pain, nausea, vomiting, or blood in stool. Physical Exam Exam Exam: Physical Exam Undernourished Bitemporal wasting Nonicteric abd soft, nondistended Vital Signs: Last Vital Signs Pulse 71 10/15/25 14:07 BP 112/84 10/15/25 14:07 BMI result Body Mass Index 22.1 Assessment & Plan Assessment & Plan (1) Unintentional weight loss: Code(s): R63.4 - Abnormal weight loss Category: Medical (2) History of diverticulitis: Code(s): Z87.19 - Personal history of other diseases of the digestive system Category: Medical (3) Early satiety: Code(s): R68.81 - Early satiety Category: Medical (4) Chronic diarrhea: Code(s): K52.9 - Noninfective gastroenteritis and colitis, unspecified (5) NICM (nonischemic cardiomyopathy): Code(s): I42.8 - Other cardiomyopathies Category: Medical (6) S/P ICD (internal cardiac defibrillator) procedure: Code(s): Z95.810 - Presence of automatic (implantable) cardiac defibrillator Category: Surgical Plan 1. Unintentional weight loss 2. early satiety 3. diarrhea 4. Hx of diverticulitis DDx include colitis, malignancy. Needs a diagnostic colo, fco as also had diverticulitis recently. His low heart function may be a contributing factor through cardiac cachexia. Since has upper GI sx of loss of appetite and nausea will plan an urgent upper endoscopy and colonoscopy both. Plan: - EGD/colo to be booked - PEG prep reviewed and instrictions handed out in Bengali - Pt is aware that this will be booked after cardiology clearance. Orders: Referrals GI Procedure Notification R63.4 - Abnormal weight loss, Z87.19 - Personal history of other diseases of the digestive system Coding Level of Care Code New Pt Level 5 (74219) Diagnoses Unintentional weight loss R63.4 History of diverticulitis Z87.19 Early satiety R68.81 Chronic diarrhea K52.9 NICM (nonischemic cardiomyopathy) I42.8 S/P ICD (internal cardiac defibrillator) procedure Z95.810
[2025-10-15 14:07] VITALS: BP 112/84; PULSE 71; BMI 22.1
--- OUTSIDE RECORDS SUMMARY | 2025-10-15 17:19 | XMS_ITS | Encounter Summary ---
Author Organization [employer] Address [address] [place] [address] Care Team Providers Care Medical Office Rep Name Role Phone Farrah Jackson DO Primary Care Provider + [phone] Reason for Visit * Reason Onset Date Comments pain medication to pharmacy 05/22/2024 Encounter Details Date Type Department Care Team ([facility] st Contact Info) Description 05/22/2024 Telephone [facility] [address] [place] [address] Farhad Knott, DMD [address] [place] [address] pain medication to pharmacy Social History Tobacco [...] of this encounter Care Teams Medical Office Rep Relationship Specialty Start Date End Date Farrah Jackson DO [address] [place] [address] PCP - General Family Medicine 10/25/18 documented as of this encounter
--- OUTSIDE RECORDS SUMMARY | 2025-10-15 17:19 | XMS_ITS | Encounter Summary ---
Author Organization [employer] Address [address] [place] [address] Care Team Providers Care Business Performance Advisor Name Role Phone Meagan Jacksonfer Primary Care Provider + [phone] Reason for Visit * Reason Comments Med Refill Encounter Details Date Type Department Care Team ([facility] Contact Info) Description 01/11/2025 Refill [facility] [address] [place], [place] [phone] Alexsandra Luevano MD [address] [place], [place] [phone] Primary hypertension Social History Tobacco Use Types [...] documented as of this encounter Care Teams Business Performance Advisor Relationship Specialty Start Date End Date Farrah Jackson DO [address] [place] [address] PCP - General Family Medicine 10/25/18 documented as of this encounter
--- OUTSIDE RECORDS SUMMARY | 2025-10-15 17:19 | XMS_ITS | Encounter Summary ---
Author Organization [employer] Address [address] [place] [address] Care Team Providers Care Meal Cooker Name Role Phone Meagan Jacksonfer Primary Care Provider + [phone] Encounter Details Date Type Department Care Team ([facility] st Contact Info) Description 10/08/2025 Community Care Management [facility] MEDICINE [address] [place] [address] [employer] Link, Physician, MD Social History Tobacco Use Types Packs/Day Years [...] documented as of this encounter Care Teams Meal Cooker Relationship Specialty Start Date End Date Farrah Jackson DO [address] [place] [address] PCP - General Family Medicine 10/25/18 documented as of this encounter
--- OUTSIDE RECORDS SUMMARY | 2025-10-15 17:19 | XMS_ITS | Encounter Summary ---
Author Organization [employer] Address [address] [place] [address] Care Team Providers Care Sexual Abuse Counsellor Name Role Phone Farrah Jackson DO Primary Care Provider + [phone] Reason for Visit * Reason Comments Med Refill Encounter Details Date Type Department Care Team ([facility] Contact Info) Description 10/11/2025 Refill [facility] MED[facility] [address] [place], [place] [phone] Farrah Jackson DO [address] [place] [address] Primary hypertension Social History Tobacco Use Types [...] documented as of this encounter Care Teams Sexual Abuse Counsellor Relationship Specialty Start Date End Date Farrah Jackson DO [address] [place] [address] PCP - General Family Medicine 10/25/18 documented as of this encounter
--- OUTSIDE RECORDS SUMMARY | 2025-10-15 17:19 | XMS_ITS | Encounter Summary ---
Author Organization [employer] Address [address] [place] [address] Care Team Providers Care Bark Peeler Name Role Phone Farrah Jackson DO Primary Care Provider + [phone] Reason for Visit * Reason Comments Med Refill Encounter Details Date Type Department Care Team ([facility] [place] Contact Info) Description 07/10/2024 Refill [facility] MEDICINE 230 [place], [place] [phone] Farrah Jackson DO [address] [place], [place] [phone] Social History Tobacco Use Types Packs/Day Years [...] documented as of this encounter Care Teams Bark Peeler Relationship Specialty Start Date End Date Farrah Jackson DO [address] [place] [address] PCP - General Family Medicine 10/25/18 documented as of this encounter
--- OUTSIDE RECORDS SUMMARY | 2025-10-15 17:19 | XMS_ITS | Encounter Summary ---
Author Organization [employer] Address [address] [place] [address] Care Team Providers Care Emergency Medicine Specialist Name Role Phone Farrah Jackson DO Primary Care Provider + [phone] Reason for Visit * Reason Comments Med Refill Encounter Details Date Type Department Care Team ([facility] Contact Info) Description 10/11/2025 Refill [facility] MEDICINE 230 [place], [place] [phone] Farrah Jackson DO [address] [place] [address] Primary hypertension Social History Tobacco Use Types [...] documented as of this encounter Care Teams Emergency Medicine Specialist Relationship Specialty Start Date End Date Farrah Jackson DO [address] [place] [address] PCP - General Family Medicine 10/25/18 documented as of this encounter
--- OUTSIDE RECORDS SUMMARY | 2025-10-15 17:19 | XMS_ITS | Encounter Summary ---
Author Organization [employer] Address [address] [place] [address] Care Team Providers Care Metal Fabricating Inspector Name Role Phone Meagan Jacksonfer Primary Care Provider + [phone] Reason for Visit * Reason Comments Med Refill Encounter Details Date Type Department Care Team ([facility] Contact Info) Description 10/04/2025 Refill [facility] MED[facility] 230 [place], [place] [phone] Name, MD Deni [address] [place] [address] Social History Tobacco Use Types Packs/Day Years [...] documented as of this encounter Care Teams Metal Fabricating Inspector Relationship Specialty Start Date End Date Farrah Jackson DO [address] [place] [address] PCP - General Family Medicine 10/25/18 documented as of this encounter
--- OUTSIDE RECORDS SUMMARY | 2025-10-15 17:19 | XMS_ITS | Encounter Summary ---
Author Organization [employer] Address [address] [place] [address] Care Team Providers Care Solar Field Installation Crew Member Name Role Phone Farrah Jackson DO Primary Care Provider + [phone] Encounter Details Date Type Department Care Team (Late st Contact Info) Description 01/15/2023 Orders Only [facility] [address] [place], [place] [phone] Farrah Baird LPN Social History Tobacco Use [...] on filedocumented in this encounter Care Teams Solar Field Installation Crew Member Relationship Specialty Start Date End Date Farrah Jackson DO [address] [place] [address] PCP - General Family Medicine 10/25/18 documented as of this encounter
--- OUTSIDE RECORDS SUMMARY | 2025-10-15 17:19 | XMS_ITS | Encounter Summary ---
Author Organization [employer] Address [address] [place] [address] Care Team Providers Care Admittance Attendant Name Role Phone Meagan Jacksonfer Primary Care Provider + [phone] Reason for Visit * Reason Comments Med Refill Encounter Details Date Type Department Care Team ([facility] Contact Info) Description 11/19/2023 Refill [facility] MEDICINE 230 [place], [place] [phone] Juana Wilson MD [address] [place], [place] [phone] Social History Tobacco Use Types Packs/Day Years [...] on filedocumented in this encounter Care Teams Admittance Attendant Relationship Specialty Start Date End Date Farrah Jackson DO [address] [place] [address] PCP - General Family Medicine 10/25/18 documented as of this encounter
--- OUTSIDE RECORDS SUMMARY | 2025-10-15 17:19 | XMS_ITS | Encounter Summary ---
Author Organization [employer] Address [address] [place] [address] Care Team Providers Care Industrial Controller Name Role Phone Farrah Jackson DO Primary Care Provider + [phone] Reason for Visit * Reason Comments Med Refill Encounter Details Date Type Department Care Team ([facility] Contact Info) Description 10/04/2025 Refill [facility] MEDICINE 230 [place], [place] [phone] Farrah Jackson DO [address] [place] [address] Primary hypertension Social History Tobacco Use Types [...] documented as of this encounter Care Teams Industrial Controller Relationship Specialty Start Date End Date Farrah Jackson DO [address] [place] [address] PCP - General Family Medicine 10/25/18 documented as of this encounter
--- OUTSIDE RECORDS SUMMARY | 2025-10-15 17:19 | XMS_ITS | Clinical Summary ---
Author Organization [facility] Address [address] [place] [phone] Phone Care Team Providers Care Machine Design Engineer Name Role Phone Unavailable Primary Care Provider [...]
--- OUTSIDE RECORDS SUMMARY | 2025-10-15 17:19 | XMS_ITS | Encounter Summary ---
Author Organization [employer] Address [address] [place] [address] Care Team Providers Care Grain Elevator Man Name Role Phone KrissyFarrah knight Primary Care Provider + [phone] Encounter Details Date Type Department Care Team (Latest Contact Info) Description 10/12/2025 Travel Social History Tobacco Use Types Packs/Day [...] documented as of this encounter Care Teams Grain Elevator Man Relationship Specialty Start Date End Date Farrah Jackson DO 230 [place] [address] PCP - General Family Medicine 10/25/18 documented as of this encounter
--- OUTSIDE RECORDS SUMMARY | 2025-10-15 17:19 | XMS_ITS | Encounter Summary ---
Author Organization [employer] Address [address] [place] [address] Care Team Providers Care Engineering Administrator Name Role Phone Meagan Jacksonfer Primary Care Provider + [phone] Reason for Visit * Reason Comments Med Refill Encounter Details Date Type Department Care Team ([facility] Contact Info) Description 10/11/2025 Refill [facility] MEDICINE [address] [place], [place] [phone] Name, MD Deni [address] [place] [address] Social History Tobacco Use Types Packs/Day Years [...] as of this encounter Care Teams Engineering Administrator Relationship Specialty Start Date End Date Farrah Jackson DO [address] [place] [address] PCP - General Family Medicine 10/25/18 documented as of this encounter
--- OUTSIDE RECORDS SUMMARY | 2025-10-15 17:19 | XMS_ITS | Encounter Summary ---
Author Organization [employer] Address [address] [facility] 7t [place] [address] Care Team Providers Care Gravity Prospecting Operator Helper Name Role Phone Farrah Jackson DO Primary Care Provider + [phone] Reason for Visit * Reason Onset Date Comments Nurse Triage 12/28/2023 Encounter Details Date Type Department Care Team ([facility] st Contact Info) Description 12/28/2023 Telephone [facility] MEDICINE [address] [place], [place] [phone] Farrah Jackson DO [address] [place], [place] [phone] Nurse Triage Social History Tobacco Use Types [...] for UTI. Pt is advised to come [facility] for provider to see Pt. Pt insurance is not active at this time and Pt is waiting for medicare to start. Advised to stop at front end mechanic to speak about insurance before going to [facility] . Pt agreed with disposition [...] accepted this outcome Please contact pt at [phone] documented in this encounter Plan of Treatment Not on file documented as of this encounter Visit Diagnoses Not on filedocumented in this encounter Care Teams Gravity Prospecting Operator Helper Relationship Specialty Start Date End Date Farrah Jackson DO [address] [place] [address] PCP - General Family Medicine 10/25/18 documented as of this encounter
--- OUTSIDE RECORDS SUMMARY | 2025-10-15 17:19 | XMS_ITS | Encounter Summary ---
Author Organization [facility] Address [address] [place] [address] Care Team Providers Care Roofer Applicator Name Role Phone Unavailable Primary Care Provider Unavailabl e Encounter Details Date Type Department Care Team (Late st Contact Info) Description 09/11/2024 Lab Requisition [facility] - Main Lab [address] [place] [address] Krishna Jose MD [address] [place] [phone] Elevated prostate specific antigen (PSA) Social History [...] 4:27 PM EST [facility] at 1627 EST Gross Description A. Urine, Voided, : [id number] Recd 1 TP CYTO 09/20/2024 4:27 PM EST [facility] Disclaimer Unless otherwise specified, all tissue is 10% NB formalin fixed and paraffin embedded. 09/20/2024 4:27 PM EST [facility] Tissue Urine specimen from urethra / Unknown 09/06/2024 09/11/2024 1:13 PM EST us Krishna Jose MD LAB PATHOLOGY ORDERABLES Final Result [facility] [address] [place] [address], documented in this encounter Visit Diagnoses Diagnosis Elevated prostate specific antigen (PSA) documented in this encounter
--- OUTSIDE RECORDS SUMMARY | 2025-10-15 17:19 | XMS_ITS | Clinical Summary ---
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, without long-term current use of insulin (HCC) USE TO TEST BLOOD SUGAR TWICE DAILY 100 each 5 5 11:14 AM EST 07/13/20 25 Active sertraline (Zoloft) 25 MG tablet TAKE 1 TABLET BY MOUTH EVERY MORNING 30 tablet 2 5 11:14 AM EST 08/09/20 25 Active atorvastatin (Lipitor) 80 MG tablet TAKE 1 TABLET BY MOUTH AT BEDTIME 90 tablet 1 5 11:14 AM EST 08/22/20 25 Active gabapentin (Neurontin) 300 MG capsule TAKE 1 CAPSULE BY MOUTH AT BEDTIME 30 capsule 3 10/11/20 25 Active carvedilol (Coreg) 12.5 MG tabletIndicatio ns:Primary hypertension TAKE 1 AND 1/2 TABLETS BY MOUTH TWICE DAILY IN THE MORNING AND IN THE EVENING WITH FOOD 90 tablet 1 10/11/20 Active gabapentin (Neurontin) 300 MG capsule TAKE 1 CAPSULE BY MOUTH AT BEDTIME 30 capsule 3 5 11:14 AM EST 05/31/20 25 025 Discontinued carvedilol (Coreg) 12.5 MG tabletIndicatio ns:Primary hypertension TAKE 1 AND 1/2 TABLETS BY MOUTH TWICE DAILY IN THE MORNING AND IN THE EVENING WITH FOOD 90 tablet 1 5 11:14 AM EST 08/09/20 025 Discontinued(Re order (will not trigger notification [...] Encounters Date Type Department Care Team Description 10/12/2025 11:30 AM EST Office Visit C OPTOMETRY [address] [place] [address] Marie Zhao, OD Type 2 diabetes mellitus without ophthalmic manifestations (HCC) (Primary Dx); Combined forms of age-related cataract of both eyes 10/12/2025 Travel 10/11/2025 Refill C MEDICINE [address] [place] [address] Deni Diallo MD 10/11/2025 Refill [facility] [address] [place] [address] Farrah Jackson DO Primary hypertension 10/11/2025 Refill [facility] [address] [place] [address] Farrah Jackson DO Primary hypertension 10/11/2025 Refill [facility] [address] [place] [address] Deni Diallo MD Primary hypertension 10/08/2025 Community Care Management [facility] MED[facility] [address] [place] [address] [facility] [place], PhysicianMD 10/04/2025 Refill C MEDICINE [address] [place] [address] Deni Diallo MD 10/04/2025 Refill [facility] [address] [place] [address] Farrah Jackson DO Primary hypertension 09/10/2025 1:00 PM EST Office Visit C OPTOMETRY [address] [place] [address] Marie Zhao, OD Type 2 diabetes mellitus without ophthalmic manifestations (HCC) (Primary Dx); Presbyopia 09/10/2025 Travel 08/22/2025 Refill [facility] [address] [place] [address] Farrah Jackson DO 08/09/2025 Refill [facility] [address] [place] [address] Farrah Jackson DO 08/09/2025 Refill [facility] [address] [place] [phone] Imani, MD Deni Primary hypertension 07/26/[address] [phone] Farrah Jackson DO ER Follow-up 07/23/2025 12:00 PM EDT Office Visit [address] [address] Farrah Jackson DO Chronic diarrhea (Primary Dx) 07/23/2025 Orders Only GENERIC EXTERNAL DATA DEPARTMENT Provider, Generic External Data 07/23/2025 Telephone [facility] [address] [place] [phone] Farrah Jackson DO Nurse Triage 07/23/2025 Travel 07/21/2025 Orders Only GENERIC EXTERNAL DATA DEPARTMENT Provider, Generic External Data 07/16/2025 12:00 PM EDT Office Visit [address] [phone] Farrah Jackson DO Unintentional weight loss (Primary Dx); Forgetfulness; History of tobacco use; Type 2 diabetes mellitus with microalbuminuria, without long-term current use of insulin ([facility]); Encounter for immunization 07/16/[address] [address] Farrah Jackson DO Durable Medical Equipment (DME prescription Ensure([facility]).) 07/16/2025 Travel from Last 3 Months Immunizations Immunization Administration [...] 07/16/2025 12:24 PM EDT Plan of Treatment Health Maintenance Due Date Last Done Comments CT Colonography 1960 Colonoscopy 1958 Dental Oral Exam 1958 Dental Prophylaxis 1958 Dental X-Ray: Bitewings 1958 FIT 1958 Sigmoidoscopy 1958 Diabetes: Foot Exam 1968 Hepatitis A Vaccines (2 of [...] 07/16/2026 07/16/2025, 03/26, 02/10/2023, Additional history exists Colorectal Cancer Screening 08/26/2026 FIT DNA/Cologuard 08/26/2026 08/26/2023 Tobacco Screening 10/12/2026 10/12/2025 Eye Exam 10/12/2027 10/12/2025, 09/24, 10/12/2025, Additional history exists DTaP/Tdap/Td Vaccines (4 - Td or Tdap) [...] microalbuminuria, without long-term current use of insulin ([facility]/HCC) Forgetfulness Unintentional weight loss ALPHA FETOPROTEIN, TUMOR [...] (CMS/HCC) Forgetfulness Unintentional weight loss URINALYSIS, COMPLETE (INCLUDES MACRO AND MICRO) Routine 07/16/2025 1:40 PM EDT Type 2 [...] microalbuminuria, without long-term current use of insulin ([facility]) Forgetfulness Unintentional weight loss POCT GLYCATED HEMOGLOBIN, TOTAL Routine 07/16/2025 12:27 PM EDT Type 2 diabetes mellitus with microalbuminuria, without long-term current use of insulin ([facility]) POCT GLUCOSE (CPT-18570) Routine 025 12:26 PM EDT Type 2 diabetes mellitus with microalbuminuria, without long-term current use of insulin ([facility]) LAB COLOGUARD COLON CANCER SCREEN Routine 08/26/2023 12:36 PM EDT Healthcare maintenance PANORAMIC RADIOGRAPHIC IMAGE Routine 10/28/2010 12:00 AM EST from Last 3 Months or Most Recently Relevant to Health Maintenance Results * XR Chest 1 View (07/23/2025 3:21 PM EDT) Anatomical Region Laterality Modality Chest Radiographic Dasia ging 07/23/2025 3:21 PM EDT Narrative 07/23/2025 3:38 PM EDT [place] [id number] XRay Report Signed Patient: Sonny Curiel MR#: [id number] : 1960 Acct:[id number] Age/Sex: 64 / M ADM Date: 07/23/25 Loc: HO.ED Attending Dr: Ordering Physician: Tamiko Luna MD Date of Service: 07/23/25 Procedure(s): XR chest 1V Accession Number(s): [id number] cc: Tamiko Luna MD; Farrah Jackson DO [...] 07/23/25 1535 DD/ 1521 TD/TT: 07/23/25 1530 Embroidery Machine Operator: Procedure Note Donotuseinterpreter, Image - 07/23/2025 [place] [id number] XRay Report Signed Patient: Emily Curiel#: [id number] : 9Acct:[id number] Age/Sex: 64 / MADM Date: 07/23/25 Loc: .ED Attending Dr: Ordering Physician: Tamiko Luna MD Date of Service: 07/23/25 Procedure(s): XR chest 1V Accession Number(s): [id number] cc: Tamiko Luna MD; Farrah Jackson DO [...] 07/23/25 1535 DD/ 1521 TD/TT: 07/23/25 1530 Embroidery Machine Operator: [facility] External Provider IMG XR PROCEDURES Final Result * High Sensitivity Troponin I (07/23/2025 2:19 PM EDT) Pathologist [facility] TROPONIN I HIGH SENSITIVITY 8.1 <3.5 - 35.0 ng/L [facility] Comment:The [place] high sens itivity Troponin-I results should beused in conjunction with other diagnostic information suchas ECG, clinical observations and information, and patientsymptoms to aid in the diagnosis of [place]. 07/23/2025 2:19 PM EDT 07/23/2025 2:21 PM EDT Generic External Data Provider LAB BLOOD ORDERAB LES Final Result [facility] [address] [place] [address] [phone] * (ABNORMAL) NT-proBNP (07/23/2025 2:19 PM EDT) Pathologist [facility] NT-proBNP 1,628.7(H ) <300 pg/mL [facility] Comment:Reference Range:Age Group (years) NT-proBNP (pg/ml) InterpretationAll <300 Negative: HF unlikelyFor patients presenting to the ED with clinical suspicion ofnew onset or worsening HF, see below:18 to <50 >299.9 to <450.0 Grayzone: [id number] to 75 >299.9 to <900.0 other causes of>75 >299.9 to <1800.0 NT-proBNP [id number] to <50 >449.9 Positive: HF [id number] >899.9>75 >1799.9Note: Elevated NT-proBNP levels should be interpreted inthe context of other clinical information. 07/23/2025 2:19 PM EDT 07/23/2025 2:21 PM EDT us Generic External Data Provider LAB BLOOD ORDERAB LES Final Result [facility] [address] [place] [address] [phone] * (ABNORMAL) CBC auto differential (07/23/2025 2:19 PM EDT) Only the most recent of3 resultswithin the time period is included. White Blood Count 11.1(H) 4.8 - 10.8 X10*3/uL [facility] Red Blood Count 4.69 4.60 - 5.80 X10*6/uL [facility] Hemoglobin 13.7(L) 14.0 - 18.0 g/dl [facility] Hematocrit 42.1 42.0 - 52.0 % [facility] Mean Corpuscular Volume 89.8 80.0 - 98.0 fL [facility] Mean Corpuscular Hemoglobin 29.2 27.0 - 33.0 pg [facility] Mean Corpuscular HGB Conc 32.5 31.0 - 36.0 g/dl [facility] Red Cell Distribution Width 16.7(H) 11.0 - 16.0 % [facility] Platelet Count 195 160 - 400 X10*3/uL [facility] Mean Platelet Volume 10.7 9.4 - 12.4 fL [facility] Neutrophils Percent Auto 73.7(H) 45 - 73 % [facility] Imm Gran Pct Auto 0.5(H) 0.0 - 0.4 % [facility] Lymphocytes Percent Auto 15.2(L) 20 - 40 % [facility] Monocytes Percent Auto 9.6 2 - 11 % [facility] Eosinophils Percent Auto 0.6 0 - 4 % [facility] Basophils Percent Auto 0.4 0 - 2 % [facility] NRBC Pct Auto 0.0 0.0 - 0.2 /100WBC [facility] Neutrophils Absolute Auto 8.2 2.0 - 8.3 x10*3/uL [facility] Imm Gran Abs Auto 0.06(H) 0.00 - 0.03 X10*3/uL [facility] Lymphocytes Absolute Auto 1.7 1.2 - 4.9 X10*3/uL [facility] Monocytes Absolute Auto 1.1 0.1 - 1.2 X10*3/uL [facility] Eosinophils Absolute Auto 0.1 0.0 - 0.4 X10*3/uL [facility] Basophils Absolute Auto 0.1 0.0 - 0.2 X10*3/uL [facility] NRBC Abs Auto 0.000 0.0 - 0.012 X10*3/uL [facility] 07/23/2025 2:19 PM EDT 07/23/2025 2:21 PM EDT Generic External Data Provider LAB BLOOD ORDERAB LES Final Result Performing Organization Address City/[facility]/ZIP Co de Phone Number [facility] [address] [place] [phone] * Magnesium (07/23/2025 2:19 PM EDT) Pathologist [facility] Magnesium 1.9 1.6 - 2.6 mg/dL [facility] 07/23/2025 2:19 PM EDT 07/23/2025 2:21 PM EDT [employer] External Data Provider LAB BLOOD ORDERAB LES Final Result Performing Organization Address [facility] de Phone Number [facility] [address] [place] [address] [phone] * (ABNORMAL) Comprehensive Metabolic Panel (07/23/2025 2:19 PM EDT) Only the most recent of2 resultswithin the time period is included. Pathologist [facility] Sodium 143 135 - 145 mmol/L [facility] Potassium 5.2(H) 3.3 - 5.1 mmol/L [facility] Comment:Slight Hemolysis.Int erpret result with caution. Chloride 107 96 - 108 mmol/L [facility] Carbon Dioxide 27 22 - 29 mmol/L [facility] Anion Gap 14 12 - 20 [facility] Urea Nitrogen (BUN) 18(H) 9 - 16 mg/dL [facility] Creatinine, Serum 0.77 0.5 - 1.4 mg/dL [facility] Creatinine Clr Calc Pharmacy 83.1 [facility] Comment:eGFR (calculated fro m the MDRD study equation) and eCrCl(calculated from the Cockcroft-Gault equation) are based ondifferent parameters and may not yield comparable results.If eCrCl result is absurd, please check patient'sheight/weight. Estimated Glomerular Filt Rate >60 [facility] Comment:Chronic Kidney Disea se: Estimated GFR < 60 mL/min/1.42i9Xaiksa Kidney Disease: Estimated GFR < 15 mL/min/1.73m2 Glucose 88 60 - 115 mg/dL [facility] Calcium 9.9 8.4 - 10.2 mg/dL [facility] Bilirubin, Total 1.0 0.0 - 1.0 mg/dL [facility] Aspartate Amino Transferase 41(H) 5 - 37 U/L [facility] Comment:Slight Hemolysis.Int erpret result with caution. Alanine Aminotransferase 21 0 - 40 U/L [facility] Total Protein 7.7 6.5 - 8.0 g/dL [facility] Albumin Level 4.3 3.5 - 5.0 g/dL [facility] Alkaline Phosphatase 57 39 - 117 U/L [facility] 07/23/2025 2:19 PM EDT 07/23/2025 2:21 PM EDT us Generic External Data Provider LAB BLOOD ORDERAB LES Final Result [facility] [address] [place] [phone] [phone] * (ABNORMAL) Urinalysis, Complete, with Reflex to Culture (07/21/2025 10:37 AM EDT) Color Urine Yellow [facility] Appearance Urine Clear [facility] PH 7.0 5.0 - 9.0 [facility] Glucose Urine UA >=1000(A) Negative mg/dL [facility] Urine Blood Negative Negative [facility] Specific [place] - Urine >=1.030(H) 1.005 - 1.025 [facility] Urine Protein Negative Neg-Trace mg/dL [facility] Urine Ketones Negative Negative mg/dL [facility] Nitrite Urine Negative Negative [facility] Leukocyte Esterase Urine Negative Negative [facility] RBC Urine 0-2 0 - 2 /HPF [facility] Urine WBC 0-5 0 - 5 /HPF [facility] Urine Squamous Epithelial Cell 0-2 0 - 2 /HPF [facility] Urine Bacteria None Seen None Seen [facility] Hyaline Casts, Urine 0-2 0 - 2 /LPF [facility] 07/21/2025 10:3 7 AM EDT 07/21/2025 10:41 AM EDT Narrative [facility] - 07/21/2025 11:05 AM EDT [id number], Clean Catch us Generic External Data Provider LAB URINE ORDERAB LES Final Result Performing Organization Address [facility] Co de Phone Number [facility] [address] [place] [phone] * Lipase (07/21/2025 10:37 AM EDT) Lipase 26 8 - 78 U/L [facility] 07/21/2025 10:3 7 AM EDT 07/21/2025 10:41 AM EDT us Generic External Data Provider LAB BLOOD ORDERAB LES Final Result Performing Organization Address [facility] Co de Phone Number [facility] [address] [place] [phone] [phone] * Leukocytes Stool Qualitative (07/17/2025 9:40 AM EDT) Leukocytes Stool Qualitative NEGATIVE NEGATIVE [facility] Stool 07/17/2025 9:40 AM EDT 07/17/2025 12:13 PM EDT Farrah Jackson DO LAB BODY FLUIDS AND STOOLS O RDERABLES Final Result [facility] [address] [place] [phone] * Stool - Gastrointestinal panel (07/17/2025 9:40 AM EDT) Pathologist [facility] Campylobacter Not Detected Not Detect. [facility] Plesiomonas shigelloides Not Detected Not Detect. [facility] Salmonella Not Detected Not Detect. [facility] Vibrio Not Detected Not Detect. [facility] Vibrio cholerae Not Detected Not Detect. [facility] YERSINIA ENTEROCOLITICA Not Detected Not Detect. [facility] Enteroaggregative E. coli (EAEC) Not Detected Not Detect. [facility] Enteropathogenic E. coli (EPEC) Not Detected Not Detect. [facility] Enterotoxigenic E. coli (ETEC) lt/st Not Detected Not Detect. [facility] Shiga-like toxin-producing E. coli (STEC) stx1/stx2 Not Detected Not Detect. [facility] E coli O157 Not applicable Not Detect. [facility] Comment:E. coli containing t he O157 antigen are a subset ofShiga-like toxin- producing E. coli (STEC). Shigella/Enteroinvasive E. coli (EIEC) Not Detected Not Detect. [facility] Cryptosporidium Not Detected Not Detect. [facility] Cyclospora cayetanensis Not Detected Not Detect. [facility] Entamoeba histolytica Not Detected Not Detect. [facility] Giardia lamblia Not Detected Not Detect. [facility] Adenovirus F 40/41 Not Detected Not Detect. [facility] Astrovirus Not Detected Not Detect. [facility] Norovirus GI/GII Not Detected Not Detect. [facility] Rotavirus A Not Detected Not Detect. [facility] Sapovirus Not Detected Not Detect. [facility] Comment: All results must be [...] assay is performed by Multiplexed PCR, utilizing Bramasol Film Array. Stool Rectal contents / Unknown 07/17/2025 9:40 AM EDT 07/17/2025 12:13 PM EDT us Farrah Jackson DO LAB MICROBIOLOGY - GENERAL O RDERABLES Final Result [facility] [address] [place] [phone] * Vitamin D, 25-Hydroxy, Total, Immunoassay (07/16/2025 1:40 PM EDT) Vitamin D 25-OH Total 56.9 >30 ng/mL [facility] Comment: Health Based Reference Values*< 20 ng/mL Pmkqdpsnx67-47 ng/mL Insufficient> 30 ng/mL Sufficient*Andrea VAZQUEZ. N [...] DO LAB BLOOD ORDERABLES Final R esult [facility] [address] [place] [phone] * Vitamin B12 (Cobalamin) and Folate Panel, Serum (07/16/2025 1:40 PM EDT) Vitamin B12 365 200 - 900 pg/mL [facility] Comment:NORMAL 200-900 PG/M L INDETERMINATE 160-199 PG/ML DEFICIENT < 160 PG/ML Folate >20.0 > or = 4.0 ng/mL [facility] Comment:Reference Values:> o r = 4.0 ng/mL< 4.0 ng/mL suggests folate deficiency Methotrexate, aminopterin and folinic acid(leucovorin) are chemotherapeutic agents whose molecularstructures are similar to folate; therefore, the Architectfolate assay cannot be used for patients using these drugs. Blood Venous blood specimen / Unknown 07/16/2025 1:40 PM EDT 07/16/2025 4:03 PM EDT Farrah Jackson DO LAB BLOOD ORDERABLES Final R esult [facility] [address] [place] [phone] * T-SPOT??.TB (07/16/2025 1:40 PM EDT) [facility] T Spot TB Negative Negative [facility] Comment:A negative test resu lt [...] as aquantitative test. TS PANEL A 0 [facility] TS PANEL B 1 [facility] Negative Control Passed [facility] Positive Control Passed [facility] Comment:For additional infor mation, please refer tohttp://education.Axtria/faq/UKK925(This link is being provided for informational/educational purposes only.)THIS TEST WAS PERFORMED AT:[id number] [place] [id number] AVILES MD,PHD 07/16/2025 1:40 PM EDT 07/16/2025 4:03 PM EDT Farrah Jackson [employer] LAB BLOOD ORDERABLES Final R esult Performing Organization Address City/[facility]/ZIP Co de Phone Number [facility] [address] [place] [phone] * (ABNORMAL) Albumin, Random Urine W/Creatinine (07/16/2025 1:40 PM EDT) Creatinine, Urine 48.41 mg/dL [facility] Microalbumin Urine 15.0 mg/L H [facility] Microalbum Creatinine Ratio Ur 30.9(H) <30 ug/mg cr [facility] Comment:Albumin/Creatinine R atio Reference Ranges: Normal: < 30 ug/mg creatinine Microalbuminuria: 30 - 300 ug/mg creatinineClinical Albuminuria: > 300 ug/mg creatinine Urine (Urine, Random) 07/16/2025 1:40 PM EDT 07/16/2025 4:03 PM EDT us Farrah Reyut [employer] LAB URINE ORDERABLES Final R esult Performing Organization Address [facility] Co de Phone Number [facility] [address] [place] [phone] * Hepatitis C Antibody with Reflex to HCV, RNA, Quantitative, Real-Time PCR (07/16/2025 1:40 PM EDT) Hepatitis C Antibody Nonreactive Nonreactive [facility] Comment:Antibodies to HCV no t detected; does not exclude early acuteHCV infection. Blood Venous blood specimen / Unknown 07/16/2025 1:40 PM EDT 07/16/2025 4:03 PM EDT Farrah Reyut [employer] LAB BLOOD ORDERABLES Final R esult Performing Organization Address [facility] Co de Phone Number [facility] [address] [place] [phone] * Alpha-Fetoprotein, Tumor Marker (07/16/2025 1:40 PM EDT) Pathologist [facility] Alpha Fetoprotein 1.1 <6.1 ng/mL [facility] Comment:This test was perfor med using the Malorie Coulterchemiluminescent method. Values obtained fromdifferent assay methods cannot be usedinterchangeably. AFP levels, regardless ofvalue, should not be interpreted as absoluteevidence of the presence or absence of disease.THIS TEST WAS PERFORMED AT:[employer] [place] [id number] SOTO MD Blood Venous blood specimen / Unknown 07/16/2025 1:40 PM EDT 07/16/2025 4:09 PM EDT Farrah Jackson LAB BLOOD ORDERABLES Final R esult Performing Organization Address [facility]/ZIP Co de Phone Number [facility] [address] [place] [phone] * Hepatitis B surface antigen, EIA (07/16/2025 1:40 PM EDT) Pathologist [facility] Hepatitis B Surface Ag Negative Negative [facility] Blood Venous blood specimen / Unknown 07/16/2025 1:40 PM EDT 07/16/2025 4:03 PM EDT Farrah Jackson DO LAB BLOOD ORDERABLES Final R esult Performing Organization Address [facility]/ZIP Co de Phone Number [facility] [address] [place] [phone] * RPR (Monitor) with Reflex to??Titer (07/16/2025 1:40 PM EDT) Pathologist [facility] RPR (Monitor) w/Refl Titer NON-REACTI VE NON-REACT EYAD [facility] Comment:THIS TEST WAS PERFOR MED AT:[facility] [address] [id number] SOTO MD Rapid Plasma Reagin Ab Titer TNP [facility] Blood Venous blood specimen / Unknown 07/16/2025 1:40 PM EDT 07/16/2025 4:03 PM EDT Farrah Jackson DO LAB BLOOD ORDERABLES Final R esult Performing Organization Address City/[facility]/ZIP Co de Phone Number [facility] [address] [place] [phone] * HIV-1/2 Antigen and Antibodies, Fourth Generation, with Reflexes (07/16/2025 1:40 PM EDT) HIV AB/AG Nonreactive Nonreactive [facility] Comment:HIV-1 p24 Ag and/or HIV-1/HIV-2 Ab not detected.A test result that is nonreactive does not exclude thepossibility of exposure to or infection with HIV-1 and/orHIV-2. Nonreactive results in this assay for individualswith prior exposure to HIV-1 and/or HIV-2 may be due toantigen and antibody levels that are below the limit ofdetection of this assay.The [employer] HIV Ag/Ab Combo assay result andsupplemental [...] City/[facility]/ZIP Co de Phone Number [facility] [address] [place] [phone] * Hepatitis B Surface Antibody, Qualitative (07/16/2025 1:40 PM EDT) ~Hepatitis B Surface Antibody REACTIVE Nonreactive [facility] Comment:REACTIVE: > 11.99 mI U/mL Blood Venous blood specimen / Unknown 07/16/2025 1:40 PM EDT 07/16/2025 4:03 PM EDT us Farrah Jackson DO LAB BLOOD ORDERABLES Final R esult Performing Organization Address [facility] Co de Phone Number [facility] [address] [place] [address] [phone] * (ABNORMAL) Urinalysis Complete (07/16/2025 1:40 PM EDT) Color Urine Yellow [facility] Appearance Urine Clear [facility] PH 5.5 5.0 - 9.0 [facility] Glucose Urine UA >=1000(A) Negative mg/dL [facility] Urine Blood Negative Negative [facility] Specific [place] - Urine 1.020 1.005 - 1.025 [facility] Urine Protein Negative Neg-Trace mg/dL [facility] Urine Ketones Negative Negative mg/dL [facility] Nitrite Urine Negative Negative [facility] Leukocyte Esterase Urine Negative Negative [facility] RBC Urine 0-2 0 - 2 /HPF [facility] Urine WBC 0-5 0 - 5 /HPF [facility] Urine Squamous Epithelial Cell 0-2 0 - 2 /HPF [facility] Urine Bacteria None Seen None Seen [facility] Hyaline Casts, Urine 0-2 0 - 2 /LPF [facility] Urine (Urine, Random) 07/16/2025 1:40 PM EDT 07/16/2025 4:03 PM EDT us Farrah Jackson DO LAB URINE ORDERABLES Final R esult Performing Organization Address City/[facility]/ZIP Co de Phone Number [facility] [address] [place] [phone] * Sed Rate by Charlotte Hernandez (07/16/2025 1:40 PM EDT) Erythrocyte Sedimentation Rate 2 0 - 15 MM/HR [facility] Comment:Patients with polycy themia and many hemoglobin abnormalitiesmay have depressed sed rates whereas patients with anemiamay have elevated sed rates. Blood Venous blood specimen / Unknown 07/16/2025 1:40 PM EDT 07/16/2025 4:03 PM EDT Farrah Renetta DO LAB BLOOD ORDERABLES Final R esult Performing Organization Address City/[facility]/ZIP Co de Phone Number [facility] [address] [place] [phone] * C-reactive Protein (07/16/2025 1:40 PM EDT) C Reactive Protein 0.30 < or = 0.50 mg/dL [facility] Blood Venous blood specimen / Unknown 07/16/2025 1:40 PM EDT 07/16/2025 4:09 PM EDT Farrah Renetta DO LAB BLOOD ORDERABLES Final R esult Performing Organization Address [facility] Co de Phone Number [facility] [address] [place] [phone] * TSH (07/16/2025 1:40 PM EDT) Thyroid Stimulating Hormone 1.75 0.32 - 4.0 uIU/mL [facility] Comment:TSH 3rd Generation ( [facility]) Blood Venous blood specimen / Unknown 07/16/2025 1:40 PM EDT 07/16/2025 4:09 PM EDT Farrah Chavessamantha DO LAB BLOOD ORDERABLES Final R esult Performing Organization Address City/[facility] Co de Phone Number [facility] [address] [place] [phone] * T4, Free (07/16/2025 1:40 PM EDT) Free T4 (Free Thyroxine) 0.95 0.71 - 1.85 ng/dL [facility] Blood Venous blood specimen / Unknown 07/16/2025 1:40 PM EDT 07/16/2025 4:09 PM EDT Farrah Jackson LAB BLOOD ORDERABLES Final R esult Performing Organization Address City/[facility]/ZIP Co de Phone Number [facility] [address] [place] [phone] * (ABNORMAL) PSA,Total (07/16/2025 1:40 PM EDT) Prostate Specific Antigen 5.00(H) <0.05 - 4.0 ng/mL [facility] Comment:PSA methodology: Dilan Galindo i ChemiluminescentMicroparticle Immunoassay (CMIA) Blood Venous blood specimen / Unknown 07/16/2025 1:40 PM EDT 07/16/2025 4:03 PM EDT Farrah Jackson DO LAB BLOOD ORDERABLES Final R esult Performing Organization Address [facility] Co de Phone Number [facility] [address] [place] [phone] * Prealbumin (07/16/2025 1:40 PM EDT) Prealbumin 25.0 20 - 40 mg/dL [facility] Blood Venous blood specimen / Unknown 07/16/2025 1:40 PM EDT 07/16/2025 4:03 PM EDT Farrah Renetta LAB BLOOD ORDERABLES Final R esult Performing Organization Address [facility] Co de Phone Number [facility] [address] [place] [phone] * Hemoglobin A1c (07/16/2025 1:40 PM EDT) Hemoglobin A1c 5.8 <6.0 % [facility] Comment:Hemoglobin A1C Refer ence Range Adults: 4.8 - 6.0 % Non diabetic: < 6.0 % Goal: < 7.0 %Additional Action Suggested: > 8.0 %Note: Hemoglobin A1c results are invalid for patients with abnormal amounts of HbF. Blood transfusions may impact the HbA1c concentration in the patient sample. Estimated Average Glucose 120 mg/dL [facility] Comment:eAG = Estimated ave rage glucose which is %A1C expressed asaverage glucose, using the formula of the T4O-GviocusWdywzid Glucose study (ADAG), Diabetes Care, Vol.31,#8,May. 2007 Blood Venous blood specimen / Unknown 07/16/2025 1:40 PM EDT 07/16/2025 4:03 PM EDT Farrah Jackson [employer] LAB BLOOD ORDERABLES Final R esult [facility] [address] [place] [phone] * Hepatic Function Panel (07/16/2025 1:40 PM EDT) Bilirubin, Total 0.8 0.0 - 1.0 mg/dL [facility] Bilirubin, Direct 0.4 0.0 - 0.5 mg/dL [facility] Aspartate Amino Transferase 33 5 - 37 U/L [facility] Alanine Aminotransferase 23 0 - 40 U/L [facility] Total Protein 7.2 6.5 - 8.0 g/dL [facility] Albumin Level 4.3 3.5 - 5.0 g/dL [facility] Alkaline Phosphatase 58 39 - 117 U/L [facility] Blood Venous blood specimen / Unknown 07/16/2025 1:40 PM EDT 07/16/2025 4:09 PM EDT Farrahtreva Jackson DO LAB BLOOD ORDERABLES Final R esult Performing Organization Address [facility]/ZIP Co de Phone Number [facility] [address] [place] [phone] * (ABNORMAL) Lipid Panel, Standard (07/16/2025 1:40 PM EDT) Triglycerides 46 <150 mg/dL [facility] Comment:Desirable Triglyceri de: less than 150 mg/dLBorderline High Triglyceride 150-199 mg/dLHigh Triglyceride: 200-499 mg/dLVery High Triglyceride: greater than or equal to 5OO mg/dL Cholesterol 87 <200 mg/dL [facility] Comment:Desirable Cholestero l: less than 200 mg/dLBorderline High Cholesterol: 200-239 mg/dLHigh Cholesterol: greater than 239 mg/dL LDL Cholesterol Calculated 42 <100 mg/dL [facility] Comment:Desirable LDL: less than 100 mg/dLNear Optimal/Above Optimal LDL: 110- 129 mg/dLBorderline High LDL: 130-159 mg/dLHigh LDL: 160-189 mg/dLVery High LDL: greater than or equal to 190 mg/dL HDL Cholesterol 36(L) >40 mg/dL [facility] Comment:Desirable HDL: great er than 40 mg/dL Note: This HDL assay may give artificially low results in patients with liver disease. Blood Venous blood specimen / Unknown 07/16/2025 1:40 PM EDT 07/16/2025 4:09 PM EDT Farrah Jackson DO LAB BLOOD ORDERABLES Final R esult Performing Organization Address [facility]/ZIP Co de Phone Number [facility] [address] [place] [phone] * Basic Metabolic Panel (07/16/2025 1:40 PM EDT) Sodium 143 135 - 145 mmol/L [facility] Potassium 3.9 3.3 - 5.1 mmol/L [facility] Chloride 108 96 - 108 mmol/L [facility] Carbon Dioxide 27 22 - 29 mmol/L [facility] Anion Gap 12 12 - 20 [facility] Urea Nitrogen (BUN) 15 9 - 16 mg/dL [facility] Creatinine, Serum 0.80 0.5 - 1.4 mg/dL [facility] Estimated Glomerular Filt Rate >60 [facility] Comment:Chronic Kidney Disea se: Estimated GFR < 60 mL/min/1.96o1Kwrirj Kidney Disease: Estimated GFR < 15 mL/min/1.73m2 Glucose 83 60 - 115 mg/dL [facility] Calcium 9.6 8.4 - 10.2 mg/dL [facility] Blood Venous blood specimen / Unknown 07/16/2025 1:40 PM EDT 07/16/2025 4:09 PM EDT Farrah Jackson DO LAB BLOOD ORDERABLES Final R esult [facility] [address] [place] [phone] * POCT Hgb A1c (07/16/2025 12:27 [...] Cologuard Result Negative Negative 09/02/20 1:54 AM [facility] (CLIA #:[id number]) Comment: NEGATIVE TEST RESULT. A negative Cologuard [...] Toussaint et al, N Engl J Med 2014;370(14):6049-6455) The normal value (reference range) for this assay is negative. COLOGUARD RE-SCREENING RECOMMENDATION: Periodic colorectal cancer screening is an important part of preventive healthcare for asymptomatic individuals at average risk for colorectal cancer. Following a negative Cologuard result, the [place] [employer] and U.S. Multi-Society Task Force screening guidelines recommend a Cologuard re-screening interval of 3 years. References: [place] [employer] Guideline for Colorectal Cancer Screening: https://www.cancer.org/cancer/clhrn-beehar-gpjdgy/xnntwaaax-vbbmrjspl-lgvttmj/ac s-rec ommendations.html.; Matty YOUNG, Krys HALL, Shelton CoreaK, Colorectal Cancer Screening: Recommendations for Physicians and Patients from the U.S. Multi-Society Task Force on Colorectal Cancer Screening , Am J Gastroenterology 2017; 112:2873-8264. TEST DESCRIPTION: Composite algorithmic analysis of stool [...] Orona. et al, N Engl J Med 2014;370(14):0984-9053.) Cologuard may produce a false negative or false positive result (no colorectal cancer or precancerous polyp present at colonoscopy follow up). A negative Cologuard test result does not guarantee the absence of CRC or advanced adenoma (pre-cancer). The current Cologuard screening interval is every 3 years. ([place] [employer] and U.S. Multi-Society Task Force). Cologuard performance data in a 10,000 patient pivotal study using colonoscopy as the reference method can be accessed at the following location: www.[employer]/results. Additional description of the Cologuard test process, warnings and precautions can be found at www.[employer].com. Stool specimen (specimen) 08/26/2023 12:36 PM EDT 08/27/2023 6:19 PM EDT Farrah Jackson DO LAB MOLECULAR DIAGNOSTICS OR DERABLES Final Result [facility] (CLIA #:[id number]) [address] [place] [address], from Last 3 Months or Most Recently Relevant to Health Maintenance Insurance [facility] FDC OPTIONS (HMO D-SNP) DENTAL [facility] Care Teams Cloth Packer Relationship Specialty Start Date End Date Farrah Jackson DO [address] [facility] [place] [phone] PCP - General Family Medicine 10/25/18
--- OUTSIDE RECORDS SUMMARY | 2025-10-15 17:19 | XMS_ITS | Clinical Summary ---
Author Organization [facility] Address [address] [address] Phone Care Team Providers Care Air Boatswain Name Role Phone KrissyFarrah knight Primary Care [...] on file Insurance GENERIC COMMERCIAL [place] NGOZI [id number] GENERIC COMMERCIAL MD NGOZI [id number] GENERIC COMMERCIAL MD NGOZI [id number] GENERIC COMMERCIAL MD NGOZI [id number] GENERIC COMMERCIAL MD NGOZI [id number] GENERIC COMMERCIAL MD NGZOI [id number] GENERIC COMMERCIAL MD NGOZI [id number] GENERIC COMMERCIAL GENERIC COMMERCIAL Care Teams Air Boatswain Relationship Specialty Start Date End Date Farrah Jackson DO [address] [place] [address] PCP - General Family Medicine 01/06/19 Additional Source Comments The information contained in this document represents components of the legal health record. It is not the complete legal health record.[facility]
--- OUTSIDE RECORDS SUMMARY | 2025-10-15 17:19 | XMS_ITS | Encounter Summary ---
Author Organization [employer] Address [address] [place] [address] Care Team Providers Care Gravure Press Set Up Operator Name Role Phone Farrah Jackson DO Primary Care Provider + [phone] Reason for Visit * Reason Comments Med Refill Encounter Details Date Type Department Care Team ([facility] Contact Info) Description 11/14/2023 Refill [facility] [address] [place], [place] [phone] Farrah Jackson DO [address] [place], [place] [phone] Social History Tobacco Use Types Packs/Day Years [...] on filedocumented in this encounter Care Teams [employer] Press Set Up Operator Relationship Specialty Start Date End Date Farrah Jackson DO [address] [place] [phone] PCP - General Family Medicine 10/25/18 documented as of this encounter
--- OUTSIDE RECORDS SUMMARY | 2025-10-15 17:19 | XMS_ITS | Encounter Summary ---
Author Organization [employer] Address [address] [place] [address] Care Team Providers Care Director Law Enforcement Name Role Phone Meagan Jacksonfer Primary Care Provider + [phone] Reason for Visit * Reason Comments Med Refill Encounter Details Date Type Department Care Team ([facility] Contact Info) Description 10/11/2025 Refill [facility] MEDICINE [address] [place], [place] [phone] Name, MD Deni [address] [place], [place] [phone] Primary hypertension Social History Tobacco Use Types [...] documented as of this encounter Care Teams Director Law Enforcement Relationship Specialty Start Date End Date Farrah Jackson DO [address] [place] [address] PCP - General Family Medicine 10/25/18 documented as of this encounter
== END 2025-10-15 15:07 | disposition home or self-care (01) ==
LOC: HO.HGI 13:52
PROVIDERS: PCP Family Medicine; Visit Provider Internal Medicine
DX: R63.4 Abnormal weight loss (principal); R68.81 Early satiety; K52.9 Noninfective gastroenteritis and colitis, unspecified; I42.8 Other cardiomyopathies; Z95.810 Presence of automatic (implantable) cardiac defibrillator; Z87.19 Personal history of other diseases of the digestive system
CPT/HCPCS: 99204

== ENCOUNTER → 2025-10-15 13:51 | Outpatient (BNVA) | payer OTHER, SELFPAY | PROVIDERS: PCP Family Medicine; Visit Provider Internal Medicine | DX: R63.4 Abnormal weight loss (principal); R68.81 Early satiety; K52.9 Noninfective gastroenteritis and colitis, unspecified; I42.8 Other cardiomyopathies; Z87.19 Personal history of other diseases of the digestive system; Z95.810 Presence of automatic (implantable) cardiac defibrillator; Z68.22 Body mass index [BMI] 22.0-22.9, adult | CPT/HCPCS: 99202 ==